=== PATIENT | male | born 1960 | race Caucasian/White ===

== ENCOUNTER 2017-02-19 09:13 | Emergency (ER) | payer OTHER ==
--- NOTE | 2017-02-19 09:33 | ER Document Report ---
ED Medical Screen (RME) - General Chief Complaint: Shortness Of Breath Stated Complaint: DIFFICULTY BREATHING Time Seen by Provider: 02/19/17 09:30 Mode of Arrival: Ambulatory Information source: Patient TRAVEL OUTSIDE OF THE [place] IN LAST 30 DAYS: No - HPI Patient complains to provider of: CP Onset: Other - Pt seen at several days ago -- dx of pneumonia -- started on ABX bugt returned to earlier this am with chest tightness -- given ASA and sent here for further eval. - Related Data Allergies/Adverse Reactions: povidone-iodine [From Betadine] Allergy (Severe, Verified 02/19/17 09:28) Generalized rash Soap [From Betadine] Allergy (Severe, Verified 02/19/17 09:28) Generalized rash Past Medical History - Past Medical History Cardiac Medical History: Reports: Hx Hypertension Denies: Hx Coronary Artery Disease, Hx Heart Attack Pulmonary Medical History: Reports: Hx Asthma - no episodes in "quite awhile" Denies: Hx Bronchitis, Hx COPD, Hx Pneumonia Neurological Medical History: Denies: Hx Cerebrovascular Accident, Hx Seizures Renal/ Medical History: Denies: Hx Peritoneal Dialysis Musculoskeltal Medical History: Reports Hx Arthritis - hands - Immunizations Immunizations up to date: Yes Hx Diphtheria, Pertussis, Tetanus Vaccination: Yes
[2017-02-19 10:01] LABS: ABSOLUTE BASOPHILS # (AUTO) 0.1 10^3/uL (0.0-0.2); ABSOLUTE EOSINOPHILS # (AUTO) 0.2 10^3/uL (0.0-0.6); ABSOLUTE LYMPHOCYTES (AUTO) 2.2 10^3/uL (0.5-4.7); ABSOLUTE MONOCYTES (AUTO) 0.5 10^3/uL (0.1-1.4); ABSOLUTE NEUT (AUTO) 4.6 10^3/uL (1.7-8.2); BASOPHILS % (AUTO) 0.9 % (0-2); EOSINOPHILS % (AUTO) 2.2 % (0-6); HEMOGLOBIN 12.2 g/dL (13.5-17.0); HGB HCT DIFFERENCE 0.6; LYMPHOCYTES % (AUTO) 29.2 % (13-45); MEAN CORPUSCULAR HEMOGLOBIN 31.8 pg (27.0-33.4); MEAN CORPUSCULAR HGB CONC 33.8 g/dL (32.0-36.0); MEAN CORPUSCULAR VOLUME 94 fl (80-97); MONOCYTES % (AUTO) 6.6 % (3-13); RED BLOOD COUNT 3.83 10^6/uL (4.35-5.55); RED CELL DISTRIBUTION WIDTH 14.3 % (11.5-14.0); SEGMENTED NEUTROPHILS % (AUTO) 61.1 % (42-78); WHITE BLOOD COUNT 7.5 10^3/uL (4.0-10.5)
--- NOTE | 2017-02-19 10:19 | RADIOLOGY REPORT (SQ) ---
EXAM DESCRIPTION: CHEST PA/LAT COMPLETED DATE/TIME: 02/19/2017 10:10 am REASON FOR STUDY: CP COMPARISON: 05/23/2015 EXAM PARAMETERS: NUMBER OF VIEWS: two views TECHNIQUE: Digital Frontal and Lateral radiographic views of the chest acquired. RADIATION DOSE: NA LIMITATIONS: none FINDINGS: LUNGS AND PLEURA: No opacities, masses or pneumothorax. No pleural effusion. MEDIASTINUM AND HILAR STRUCTURES: No masses or contour abnormalities. HEART AND VASCULAR STRUCTURES: Heart normal size. No evidence for failure. BONES: No acute findings. HARDWARE: None in the chest. OTHER: No other significant finding. IMPRESSION: NO SIGNIFICANT RADIOGRAPHIC FINDING IN THE CHEST. TECHNICAL DOCUMENTATION: JOB ID: [id number] [employer]- All Rights Reserved
[2017-02-19 10:20] LABS: ALANINE AMINOTRANSFERASE 39 U/L (21-72); ALBUMIN 3.9 g/dL (3.5-5.0); ALKALINE PHOSPHATASE 34 U/L (38-126); ANION GAP 13 (5-19); ASPARTATE AMINO TRANSFERASE 36 U/L (17-59); BILIRUBIN,DIRECT 0.4 mg/dL (0.0-0.4); BILIRUBIN,TOTAL 0.5 mg/dL (0.2-1.3); BLOOD UREA NITROGEN 54 mg/dL (7-20); CALCIUM 9.6 mg/dL (8.4-10.2); CARBON DIOXIDE 30 mmol/L (22-30); CHLORIDE 102 mmol/L (98-107); CREATINE KINASE 361 U/L (55-170); CREATININE RESULT 2.99 mg/dL (0.52-1.25); GLUCOSE 169 mg/dL (75-110); POTASSIUM 4.5 mmol/L (3.6-5.0); SODIUM 144.8 mmol/L (137-145); TOTAL PROTEIN 6.2 g/dL (6.3-8.2)
[2017-02-19] MEDS ORDERED: IPRATROPIUM/ALBUTEROL 0.5-2.5 MG/3 ML AMPUL NEB ONE (10:22)
[2017-02-19] MEDS ORDERED: ALBUTEROL SULFATE 0.083% NEB 2.5 MG/3 ML AMPUL NEB ONE ×3 (10:22→11:42)
--- NOTE | 2017-02-19 10:24 | ER Document Report ---
ED Respiratory Problem - General Chief Complaint: Shortness Of Breath Stated Complaint: DIFFICULTY BREATHING Time Seen by Provider: 02/19/17 09:30 Mode of Arrival: Ambulatory Information source: Patient TRAVEL OUTSIDE OF THE [place] IN LAST 30 DAYS: No - HPI Patient complains to provider of: Cough, Short of breath Onset: Last week Duration: Worse/persistent Short of Breath: Moderate Chest pain/discomfort: Tightness Cough: Productive Sputum amount: Small Sputum color: Yellow Sputum consistency: Mucoid At home treatment: Bronchodilators, Oral steroids Associated symptoms: Congestion, Cough, Difficulty breathing, Short of breath, Wheezing Similar symptoms previously: Yes Recently seen / treated by doctor: Yes Notes: Patient is a 56-year-old male presenting to the emergency room today complaining of productive cough with difficulty breathing and chest tightness is been going on since of last week, he was seen at urgent care on Wednesday of this week and diagnosed with pneumonia after having a chest x-ray done , was placed on a Z-Rui and prednisone, he also uses a nebulizer at home and albuterol inhaler as needed, he reports not feeling any better, with dizziness today as well, he denies a fever, no sick contacts, patient does not smoke - Related Data Allergies/Adverse Reactions: povidone-iodine [From Betadine] Allergy (Severe, Verified 02/19/17 09:28) Generalized rash Soap [From Betadine] Allergy (Severe, Verified 02/19/17 09:28) Generalized rash Past Medical History - General Information source: Patient - Social History Smoking Status: Never Smoker Chew tobacco use (# tins/day): No Frequency of alcohol use: Occasional Drug Abuse: None Family History: Reviewed & Not Pertinent - Past Medical History Cardiac Medical History: Reports: Hx Hypercholesterolemia, Hx Hypertension Denies: Hx Coronary Artery Disease, Hx Heart Attack Pulmonary Medical History: Reports: Hx Asthma - no episodes in "quite awhile", Hx COPD Denies: Hx Bronchitis, Hx Pneumonia Neurological Medical History: Denies: Hx Cerebrovascular Accident, Hx Seizures Endocrine Medical History: Reports: Hx Diabetes Mellitus Type 2 Renal/ Medical History: Denies: Hx Peritoneal Dialysis. 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 - Immunizations Immunizations up to date: Yes Hx Diphtheria, Pertussis, Tetanus Vaccination: Yes Review of Systems - Review of Systems Constitutional: No symptoms reported EENT: No symptoms reported Cardiovascular: Dizziness Respiratory: See HPI Gastrointestinal: No symptoms reported Genitourinary: No symptoms reported Male Genitourinary: No symptoms reported Musculoskeletal: No symptoms reported Skin: No symptoms reported Hematologic/Lymphatic: No symptoms reported Neurological/Psychological: No symptoms reported -: Yes All other systems reviewed and negative Physical Exam - Vital signs Interpretation: Normal - General General appearance: Appears well, Alert - HEENT Head: Normocephalic, Atraumatic Eyes: Normal Pupils: PERRL - Respiratory Respiratory status: No respiratory distress Chest status: Nontender Breath sounds: Nonproductive cough, Wheezing Chest palpation: Normal - Cardiovascular Rhythm: Regular Heart sounds: Normal auscultation Murmur: No - Abdominal Inspection: Normal Distension: No distension Bowel sounds: Normal Tenderness: Nontender Organomegaly: No organomegaly - Back Back: Normal, Nontender - Extremities General upper extremity: Normal inspection, Nontender, Normal color, Normal ROM , Normal temperature General lower extremity: Normal inspection, Nontender, Normal color, Normal ROM , Normal temperature, Normal weight bearing. No: Katelyn's sign - Neurological Neuro grossly intact: Yes Cognition: Normal Orientation: AAOx4 Iggy Coma Scale Eye Opening: Spontaneous Igyg Coma Scale Verbal: Oriented [place] Coma Scale Motor: Obeys Commands [place] Coma Scale Total: 15 Speech: Normal Motor strength normal: LUE, RUE, LLE, RLE Sensory: Normal - Psychological Associated symptoms: Normal affect, Normal mood - Skin Skin Temperature: Warm Skin Moisture: Dry Skin Color: Normal Course - Re-evaluation Re-evalutation: 02/19/17 13:12 Patient resting comfortably on stretcher, reports feeling much better after breathing treatments and IV fluids, he was able to ambulate in the department without additional dizziness, lungs are now clear to auscultation, symptoms are consistent with likely bronchitis and slight dehydration causing increased renal insufficiency, patient was advised to continue using his albuterol treatments at home every 4 hours, continue medications as previously prescribed , drink plenty of fluids, follow-up with his primary care provider in 1-2 days or return if symptoms worsen, patient acknowledges understanding and agreement with this plan - Laboratory Result Diagrams: 02/19/17 09:44 02/19/17 09:44 Laboratory results interpreted by me: 02/19/17 02/19/17 02/19/17 09:44 09:44 09:44 RBC 3.83 L Hgb 12.2 L Hct 36.0 L RDW 14.3 H BUN 54 H Creatinine 2.99 H Est GFR ( Amer) 26 L Est GFR (Non-Af Amer) 22 L Glucose 169 H Alkaline Phosphatase 34 L Creatine Kinase 361 H CK-MB (CK-2) 6.36 H Total Protein 6.2 L - Diagnostic Test Radiology reviewed: Image reviewed, Reports reviewed - EKG Interpretation by Me EKG shows normal: Sinus rhythm Rate: Normal Romulus/QRS: IVCD When compared to previous EKG there are: No significant change Discharge - Discharge Clinical Impression: Acute on chronic renal insufficiency, Dizziness Acute bronchitis Qualifiers: Bronchitis organism: unspecified organism Qualified Code(s): J20.9 - Acute bronchitis, unspecified Condition: Stable Disposition: HOME, SELF-CARE Instructions: Dizziness ([facility]), Kidney Failure ([facility]), Bronchitis ([facility]), Bronchitis With Bronchospasm (Wheezing) ([facility]) Additional Instructions: Follow up with your primary care provider in one to 2 days. Return to the emergency room immediately if symptoms worsen or any additional concerns. Forms: Return to Work
[2017-02-19 10:32] LABS: CREATINE KINASE MB 6.36 ng/mL (<4.55)
[2017-02-19 10:33] LABS: TROPONIN I < 0.012 ng/mL
[2017-02-19] MEDS: NORMAL SALINE 1000 ML 1,000 ML IV PRN ×2 (11:02→11:54)
[2017-02-19] MEDS ORDERED: NORMAL SALINE 1000 ML 1,000 ML IV PRN (11:42)
--- NOTE | 2017-02-19 13:19 | EKG REPORT ---
SEVERITY:- ABNORMAL ECG - SINUS RHYTHM NONSPECIFIC IVCD WITH LAD LEFT VENTRICULAR HYPERTROPHY SUSPECT OLD INFERIOR CT : Confirmed by: Cj Busch MD 19-Feb-2017 13:18:32
[2017-02-19 13:25] VITALS: BP 148/78
== END 2017-02-19 13:27 | disposition home or self-care (01) ==
LOC: ER 09:13
DX: J44.0 Chronic obstructive pulmonary disease with (acute) lower respiratory infection (principal); J20.9 Acute bronchitis, unspecified; J18.9 Pneumonia, unspecified organism; I12.9 Hypertensive chronic kidney disease with stage 1 through stage 4 chronic kidney disease, or unspecified chronic kidney disease; E11.22 Type 2 diabetes mellitus with diabetic chronic kidney disease; N18.9 Chronic kidney disease, unspecified; R42 Dizziness and giddiness; Z88.3 Allergy status to other anti-infective agents; Z90.5 Acquired absence of kidney
CPT/HCPCS: 93005; 94640 ×2; 99285; 96360; 96361; 36415; 82553; 82550; 85025; 80053; 84484; 71020; 93010; J7030; J7620

== ENCOUNTER 2017-05-25 05:19 | Emergency (ER) | payer OTHER ==
--- NOTE | 2017-05-25 05:51 | ER Document Report ---
ED Medical Screen (RME) - General Chief Complaint: High Blood Pressure Stated Complaint: BLOOD PRESSURE PROBLEMS TRAVEL OUTSIDE OF THE [place] IN LAST 30 DAYS: No - HPI Notes: 05/25/17 05:51 Patient is a 56-year-old male with a history of hypertension, diabetes, CKD ( not on dialysis) who presents the ED complaining of generalized abdominal pain and cramping along with loose stool/diarrhea 1 week. Patient states that he also has associated nausea without any vomiting. Patient states that he is having approximately 5-8 BM's every day. Patient also states that he has been struggling with elevated blood pressure and was 220 systolic while at his [employer] yesterday afternoon. Patient states that he has had a decreased p.o. intake because of his abdominal symptoms. Patient states that he is still urinating normally. He denies any recent antibiotic use or travel. Patient reports having a headache over the last day as well. Denies any fever, neck pain, changes in vision/speech/mentation/hearing, URI, sore throat, chest pain, palpitations, syncope, cough, shortness of breath, wheeze, dyspnea, urinary retention, dysuria, hematuria, back pain, loss of control of bowel or bladder, numbness/tingling, or rash. I have treated and performed a rapid initial assessment of this patient. A comprehensive ED assessment and evaluation of the patient, analysis of test results and completion of medical decision making process will be conducted by additional ED providers. - Related Data Allergies/Adverse Reactions: povidone-iodine [From Betadine] Allergy (Severe, Verified 05/25/17 05:20) Generalized rash Soap [From Betadine] Allergy (Severe, Verified 05/25/17 05:20) Generalized rash Past Medical History - Social History Family history: Reviewed & Not Pertinent - Past Medical History Cardiac Medical History: Reports: Hx Hypercholesterolemia, Hx Hypertension Denies: Hx Coronary Artery Disease, Hx Heart Attack Pulmonary Medical History: Reports: Hx Asthma - no episodes in "quite awhile", Hx COPD Denies: Hx Bronchitis, Hx Pneumonia Neurological Medical History: Denies: Hx Cerebrovascular Accident, Hx Seizures Endocrine Medical History: Reports: Hx Diabetes Mellitus Type 2 Renal/ Medical History: Denies: Hx Peritoneal Dialysis. 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 - Immunizations Immunizations up to date: Yes Hx Diphtheria, Pertussis, Tetanus Vaccination: Yes Physical Exam - Vital signs Vitals: Temp Pulse Resp BP Pulse Ox 97.9 F 65 18 162/80 H 95 05/25/17 05:21 05/25/17 05:21 05/25/17 05:21 05/25/17 05:05/25/17 05:21 - Respiratory Respiratory status: No respiratory distress Breath sounds: Normal - Cardiovascular Rhythm: Regular Heart sounds: Normal auscultation - Abdominal Bowel sounds: Normal Tenderness: Tender - generalized mild tenderness Course - Vital Signs Vital signs: Temp Pulse Resp BP Pulse Ox 97.9 F 65 18 162/80 H 95 05/25/17 05:21 05/25/17 05:21 05/25/17 05:21 05/25/17 05:21 05/25/17 05:21
[2017-05-25] MEDS ORDERED: ONDANSETRON HCL INJ/PF 4 MG/2 ML SDV IV ONE (05:56)
[2017-05-25] MEDS ORDERED: NORMAL SALINE 1000 ML 1,000 ML IV ONE (05:57)
[2017-05-25 06:27] LABS: ABSOLUTE BASOPHILS # (AUTO) 0.1 10^3/uL (0.0-0.2); ABSOLUTE EOSINOPHILS # (AUTO) 0.2 10^3/uL (0.0-0.6); ABSOLUTE LYMPHOCYTES (AUTO) 1.5 10^3/uL (0.5-4.7); ABSOLUTE MONOCYTES (AUTO) 0.5 10^3/uL (0.1-1.4); ABSOLUTE NEUT (AUTO) 4.5 10^3/uL (1.7-8.2); BASOPHILS % (AUTO) 0.9 % (0-2); EOSINOPHILS % (AUTO) 3.3 % (0-6); HEMATOCRIT 32.7 % (37.9-51.0); HGB HCT DIFFERENCE 0.3; LYMPHOCYTES % (AUTO) 22.1 % (13-45); MEAN CORPUSCULAR HEMOGLOBIN 30.9 pg (27.0-33.4); MEAN CORPUSCULAR HGB CONC 33.6 g/dL (32.0-36.0); MEAN CORPUSCULAR VOLUME 92 fl (80-97); MONOCYTES % (AUTO) 7.7 % (3-13); RED BLOOD COUNT 3.56 10^6/uL (4.35-5.55); RED CELL DISTRIBUTION WIDTH 14.6 % (11.5-14.0); WHITE BLOOD COUNT 6.8 10^3/uL (4.0-10.5)
--- NOTE | 2017-05-25 06:47 | ER Document Report ---
ED General - General Mode of Arrival: Ambulatory Information source: Patient TRAVEL OUTSIDE OF THE [place] IN LAST 30 DAYS: No <TORREY RAHMAN - Last Filed: 05/25/17 15:37> <PAT GONZALEZ - Last Filed: 05/26/17 15:21> - General Chief Complaint: High Blood Pressure Stated Complaint: BLOOD PRESSURE PROBLEMS Time Seen by Provider: 05/25/17 06:25 Notes: Patient is a 56 year old male that presents to the emergency department today with complaints of elevated blood pressures for one week with associated diarrhea. Patient states he has vomited once or twice the past week. Patient states that he developed a headache a few days ago. Patient states he has been having trouble controlling his blood pressures the last few days as well, he last took his BP meds at 0300 this morning. Patient denies a history of diverticulitis, fevers, recent travel, sick contacts, new medications, or recent antibiotic usage. (TORREY RAHMAN) - Related Data Allergies/Adverse Reactions: povidone-iodine [From Betadine] Allergy (Severe, Verified 05/25/17 05:20) Generalized rash Soap [From Betadine] Allergy (Severe, Verified 05/25/17 05:20) Generalized rash Past Medical History - General Information source: Patient - Social History Smoking Status: Never Smoker Cigarette use (# per day): No Chew tobacco use (# tins/day): No Frequency of alcohol use: None Drug Abuse: None Lives with: Family Family History: Reviewed & Not Pertinent Patient has suicidal ideation: No Patient has homicidal ideation: No - Past Medical History Cardiac Medical History: Reports: Hx Hypercholesterolemia, Hx Hypertension Pulmonary Medical History: Reports: Hx Asthma - no episodes in "quite awhile", Hx COPD Endocrine Medical History: Reports: Hx Diabetes Mellitus Type 2 Renal/ Medical History: Reports: Hx Kidney Stones - kidney disease GI Medical History: Reports: Hx Gastroesophageal Reflux Disease Musculoskeltal Medical History: Reports Hx Arthritis - hands Past Surgical History: Reports: Hx Kidney (Renal Surgery) - 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 - Immunizations Immunizations up to date: Yes Hx Diphtheria, Pertussis, Tetanus Vaccination: Yes <TORREY RAHMAN - Last Filed: 05/25/17 15:37> Review of Systems - Review of Systems Constitutional: denies: Fever EENT: No symptoms reported Cardiovascular: See HPI, Other - elevated blood pressures Respiratory: No symptoms reported Gastrointestinal: See HPI, Diarrhea, Vomiting Genitourinary: No symptoms reported Male Genitourinary: No symptoms reported Musculoskeletal: No symptoms reported Skin: No symptoms reported Hematologic/Lymphatic: No symptoms reported Neurological/Psychological: See HPI, Headaches -: Yes All other systems reviewed and negative <TORREY RAHMAN - Last Filed: 05/25/17 15:37> Physical Exam <TORREY RAHMAN - Last Filed: 05/25/17 15:37> <PAT GONZALEZ - Last Filed: 05/26/17 15:21> - Vital signs Vitals: Temp Pulse Resp BP Pulse Ox 97.9 F 65 18 162/80 H 95 05/25/17 05:21 05/25/17 05:21 05/25/17 05:21 05/25/17 05:21 05/25/17 05:21 - Notes Notes: Physical Exam: General: Alert, appears uncomfortable. HEENT: Normocephalic. Atraumatic. PERRL. Extraocular movements intact. Oropharynx clear. Dry mucous membranes. Neck: Supple. Non-tender. Respiratory: No respiratory distress. Clear and equal breath sounds bilaterally. Cardiovascular: Regular rate and rhythm. Abdominal: LLQ tenderness with palpation, no guarding or rebound. No distension. Normal Bowel Sounds. Back: Non-tender. No deformity or step off. Extremities: Moves all four extremities. Upper extremities: Normal inspection. Normal ROM. Lower extremities: Normal inspection. No edema. Normal ROM. Neurological: Normal cognition. AAOx4. Normal speech. Psychological: Normal affect. Normal Mood. Skin: Warm. Dry. Normal color. (TORREY RAHMAN) Course - Laboratory Result Diagrams: 05/25/17 06:10 05/25/17 06:10 <TORREY RAHMAN - Last Filed: 05/25/17 15:37> - Laboratory Result Diagrams: 05/25/17 06:10 05/25/17 06:10 - Diagnostic Test Radiology reviewed: Reports reviewed <PAT GONZALEZ - Last Filed: 05/26/17 15:21> - Re-evaluation Re-evalutation: Patient is a 56-year-old male who comes in complaining of diarrhea, abdominal pain lower and headache. Patient was given Zofran Compazine and Benadryl and his headache is resolved. Patient does not have any further abdominal pain and he is eating a full meal in the room. No further diarrhea. Blood work and urine within normal limits. Patient has a history of a left nephrectomy, unfortunately, although CT did not show any acute findings, patient does have what appears to be a neoplasm on his right kidney. Patient does not have any diagnosis of this. Patient was discussed with his schedule planning manager, Dr. Gutierrez. Patient was also discussed with Dr. Strauss from [facility] urology, Dr. Wilson from the [facility] oncology [place]. Patient has had appointment scheduled with these providers due to his new finding and also that he only has one kidney. This is been discussed at length with the patient who understands and agrees with plan as outpatient. present for discussion. Stable for discharge. Return if any worsening or concerning findings. (PAT GONZALEZ) - Vital Signs Vital signs: Temp Pulse Resp BP Pulse Ox 97.9 F 65 18 177/73 H 95 05/25/17 13:37 05/25/17 05:21 05/25/17 13:36 05/25/17 13:37 05/25/17 13:37 - Laboratory Laboratory results interpreted by me: 05/25/17 05/25/17 05/25/17 06:10 06:10 08:35 RBC 3.56 L Hgb 11.0 L Hct 32.7 L RDW 14.6 H Chloride 111 H BUN 26 H Creatinine 2.85 H Est GFR ( Amer) 28 L Est GFR (Non-Af Amer) 23 L Total Protein 5.2 L Albumin 3.1 L Urine Protein >=500 H Urine Glucose (UA) 50 H Discharge <TORREY RAHMAN - Last Filed: 05/25/17 15:37> <PAT GONZALEZ - Last Filed: 05/26/17 15:21> - Discharge Clinical Impression: Kidney neoplasm, Diarrhea, Headache Condition: Stable Disposition: HOME, SELF-CARE Instructions: Diarrhea, Nonspecific ([facility]), Growth or Mass, Pending Workup ([facility]) , Headache ([facility]) Additional Instructions: Please take a copy of your blood work and CAT scan with you. Please call to confirm the appointments. Referrals: SHAGUFTA MIJARES, INTERNAL CONTROL SPECIALIST-C [Primary Care Provider] - Follow up in 3-5 days EDWARD GUTIERREZ MD [ACTIVE STAFF] - Follow up in 1 week MAXIM SCRUGGS MD [ACTIVE STAFF] - 06/02/17 10:15 am PRINCE FINLEY MD [NO LOCAL MD] - 05/31/17 3:20 pm Scribe Attestation: 05/26/17 15:21 I personally performed the services described in the documentation, reviewed and edited the documentation which was dictated to the scribe in my presence, and it accurately records my words and actions. (PAT GONZALEZ) Scribe Documentation - Scribe Written by Lidia:: Lidia Pelaez, 05/25/2017 0718 acting as scribe for :: Milo <TORREY RAHMAN - Last Filed: 05/25/17 15:37>
[2017-05-25 06:58] LABS: ALANINE AMINOTRANSFERASE 34 U/L (21-72); ALBUMIN 3.1 g/dL (3.5-5.0); ALKALINE PHOSPHATASE 44 U/L (38-126); ANION GAP 11 (5-19); ASPARTATE AMINO TRANSFERASE 23 U/L (17-59); BILIRUBIN,DIRECT 0.4 mg/dL (0.0-0.4); BILIRUBIN,TOTAL 0.7 mg/dL (0.2-1.3); BLOOD UREA NITROGEN 26 mg/dL (7-20); CALCIUM 8.4 mg/dL (8.4-10.2); CARBON DIOXIDE 23 mmol/L (22-30); CHLORIDE 111 mmol/L (98-107); CREATININE RESULT 2.85 mg/dL (0.52-1.25); GLUCOSE 102 mg/dL (75-110); LIPASE 78.7 U/L (23-300); POTASSIUM 3.8 mmol/L (3.6-5.0); SODIUM 144.5 mmol/L (137-145); TOTAL PROTEIN 5.2 g/dL (6.3-8.2)
[2017-05-25] MEDS ORDERED: DIPHENHYDRAMINE HCL 50 MG/ML VIAL IV ONE (08:01)
[2017-05-25] MEDS ORDERED: PROCHLORPERAZINE EDISYLATE INJ 10 MG/2 ML VIAL IV ONE (08:01)
--- NOTE | 2017-05-25 08:33 | RADIOLOGY REPORT (SQ) ---
EXAM DESCRIPTION: CT ABD/PELVIS NO ORAL OR IV COMPLETED DATE/TIME: 05/25/2017 7:40 am REASON FOR STUDY: LLQ pain, diarrhea, nausea COMPARISON: Renal ultrasound 11/04/2006 TECHNIQUE: CT scan of the abdomen and pelvis performed without intravenous or oral contrast. Images reviewed with lung, soft tissue, and bone windows. Reconstructed coronal and sagittal MPR images revi ewed. All images stored on PACS. All CT scanners at this facility use dose modulation, iterative reconstruction, and/or weight based d osing when appropriate to reduce radiation dose to as low as reasonably achievable (ALARA). [facility]: Dose Right [facility]: CareDose [facility]: Dose Right [facility]: Teradose 4D [facility]: Newforma RADIATION DOSE: CT Rad equipment meets quality standard of care and radiation dose reduction techniq ues were employed. CTDIvol: 20.9 mGy. DLP: 1285 mGy-cm.mGy. LIMITATIONS: No oral or IV contrast FINDINGS: LOWER CHEST: No significant findings. No nodules or infiltrates. NON-CONTRASTED LIVER, SPLEEN, ADRENALS: Evaluation limited by lack of IV contrast. No identified sign ificant masses. PANCREAS: No masses. No peripancreatic inflammatory changes. GALLBLADDER: No identified stones by CT criteria. No inflammatory changes to suggest cholecystitis. RIGHT KIDNEY AND URETER: A 2.5 cm soft tissue density mass is present in the right lower pole kidney, best shown on coronal image 31 and axial image 58. This requires further investigation with additio nal cross-sectional imaging, either CT abdomen and pelvis with IV contrast or MRI kidneys with contra st. No significant calcifications. No hydronephrosis or hydroureter. LEFT KIDNEY AND URETER: Post left nephrectomy. AORTA AND RETROPERITONEUM: No aneurysm. No retroperitoneal masses or adenopathy. BOWEL AND PERITONEAL CAVITY: No obvious masses or inflammatory changes. No free fluid. APPENDIX: Not identified PELVIS, BLADDER, AND ABDOMINAL WALL:No abnormal masses. No free fluid. Bladder normal. Fat containin g left inguinal hernia BONES: Degenerative disc disease and facet arthropathy, lower lumbar spine OTHER: No other significant finding. IMPRESSION: No CT findings to explain history of left lower quadrant pain, nausea, and diarrhea 2.5 cm solid nodule right lower pole kidney worrisome for neoplasm. Further evaluation with contrast enhanced cross-sectional imaging recommended. Patient is post left nephrectomy. COMMENT: This report was discussed with Dr. Wodowski Quality ID # [id number]: Final reports with documentation of one or more dose reduction techniques (e.g., Au tomated exposure control, adjustment of the mA and/or kV according to patient size, use of iterative reconstruction technique) TECHNICAL DOCUMENTATION: JOB ID: [id number] [employer]- All Rights Reserved
[2017-05-25 09:08] LABS: APPEARANCE,URINE CLOUDY; BILIRUBIN,URINE NEGATIVE (NEGATIVE); GLUCOSE, URINE 50 mg/dL (NEGATIVE); KETONES,URINE NEGATIVE (NEGATIVE); LEUKOCYTE ESTERASE,URINE NEGATIVE (NEGATIVE); NITRITE,URINE NEGATIVE (NEGATIVE); PROTEIN,URINE >=500 mg/dL (NEGATIVE); URINE SPECIFIC GRAVITY 1.026; UROBILINOGEN,URINE NEGATIVE mg/dL (<2.0)
[2017-05-25 13:39] VITALS: BP 177/73
== END 2017-05-25 13:40 | disposition home or self-care (01) ==
LOC: ER 05:19
DX: D49.511 Neoplasm of unspecified behavior of right kidney (principal); I10 Essential (primary) hypertension; R19.7 Diarrhea, unspecified; R11.2 Nausea with vomiting, unspecified; R51 Headache; R10.814 Left lower quadrant abdominal tenderness; J44.9 Chronic obstructive pulmonary disease, unspecified; R50.9 Fever, unspecified; Z90.5 Acquired absence of kidney; Z79.899 Other long term (current) drug therapy; Z87.19 Personal history of other diseases of the digestive system; Z88.3 Allergy status to other anti-infective agents
CPT/HCPCS: 99284; 96361; 96374; 96375; 36415; 83690; 85025; 80053; 81001; 74176; J1200; J0780; J2405; J7030

== ENCOUNTER 2017-06-03 13:22 | Emergency (ER) | payer OTHER ==
[2017-06-03] MEDS ORDERED: ONDANSETRON HCL INJ/PF 4 MG/2 ML SDV IV ONE ×2 (13:51→19:42)
[2017-06-03] MEDS ORDERED: MORPHINE SULFATE 10 MG/ML INJ IV ONE (13:51)
--- NOTE | 2017-06-03 13:51 | ER Document Report ---
ED Medical Screen (RME) - General Chief Complaint: Abdominal Pain >50 Stated Complaint: ABDOMINAL PAIN Time Seen by Provider: 06/03/17 13:44 Notes: Patient was sent from Dr. Morales's office. He has abdominal pain and history of a renal mass. Dr. Morales asked that an MRI be done. I did call and speak with MRI and they can do the test at approximately 4:30 PM today. They state no contrast can be given due to patient's creatinine. I called Dr. Morales and informed her of when the MRI can be done and that no contrast could be given and she stated that that was okay with her. TRAVEL OUTSIDE OF THE [place] IN LAST 30 DAYS: No - Related Data Allergies/Adverse Reactions: povidone-iodine [From Betadine] Allergy (Severe, Verified 06/03/17 13:23) Generalized rash Soap [From Betadine] Allergy (Severe, Verified 06/03/17 13:23) Generalized rash Past Medical History - Social History Frequency of alcohol use: None Drug Abuse: None Family history: Reviewed & Not Pertinent - Past Medical History Cardiac Medical History: Reports: Hx Hypercholesterolemia, Hx Hypertension Denies: Hx Coronary Artery Disease, Hx Heart Attack Pulmonary Medical History: Reports: Hx Asthma - no episodes in "quite awhile", Hx COPD Denies: Hx Bronchitis, Hx Pneumonia Neurological Medical History: Denies: Hx Cerebrovascular Accident, Hx Seizures Endocrine Medical History: Reports: Hx Diabetes Mellitus Type 2 Renal/ Medical History: Reports: Hx Kidney Stones - kidney disease. 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
[2017-06-03 14:31] LABS: ABSOLUTE EOSINOPHILS # (AUTO) 0.1 10^3/uL (0.0-0.6); ABSOLUTE LYMPHOCYTES (AUTO) 1.3 10^3/uL (0.5-4.7); ABSOLUTE MONOCYTES (AUTO) 0.4 10^3/uL (0.1-1.4); ABSOLUTE NEUT (AUTO) 4.7 10^3/uL (1.7-8.2); BASOPHILS % (AUTO) 0.6 % (0-2); EOSINOPHILS % (AUTO) 1.9 % (0-6); HEMOGLOBIN 12.5 g/dL (13.5-17.0); HGB HCT DIFFERENCE 0.5; LYMPHOCYTES % (AUTO) 20.2 % (13-45); MEAN CORPUSCULAR HGB CONC 33.9 g/dL (32.0-36.0); MEAN CORPUSCULAR VOLUME 92 fl (80-97); MONOCYTES % (AUTO) 5.6 % (3-13); RED BLOOD COUNT 4.04 10^6/uL (4.35-5.55); RED CELL DISTRIBUTION WIDTH 14.3 % (11.5-14.0); SEGMENTED NEUTROPHILS % (AUTO) 71.7 % (42-78); WHITE BLOOD COUNT 6.5 10^3/uL (4.0-10.5)
[2017-06-03 14:34] LABS: APPEARANCE,URINE SLIGHTLY-CLOUDY; BILIRUBIN,URINE NEGATIVE (NEGATIVE); GLUCOSE, URINE 50 mg/dL (NEGATIVE); KETONES,URINE NEGATIVE (NEGATIVE); LEUKOCYTE ESTERASE,URINE NEGATIVE (NEGATIVE); NITRITE,URINE NEGATIVE (NEGATIVE); PROTEIN,URINE >=500 mg/dL (NEGATIVE); URINE SPECIFIC GRAVITY 1.025; UROBILINOGEN,URINE NEGATIVE mg/dL (<2.0)
--- NOTE | 2017-06-03 14:40 | ER Document Report ---
ED GI/ - General Chief Complaint: Abdominal Pain >50 Stated Complaint: ABDOMINAL PAIN Time Seen by Provider: 06/03/17 13:44 Notes: The patient is a 56-year-old male, past medical history hypertension, Hx of left nephrectomy, presents with mild left lower quadrant abdominal pain and 2 episodes of watery diarrhea. Patient was in the ER 10 days ago and had a negative CT scan to explain his symptoms, but it did show a nodule in his right kidney. When he followed up with the oncologist, Dr. Morales, yesterday, he was sent to the ER for an MRI for further evaluation of his abdominal pain and renal mass. Patient says he takes four blood pressure medications and took them this morning. Patient denies fevers, recent travel, history of diverticulitis or diverticulosis, blood in stool, vomiting, chest pain, shortness of breath, urinary symptoms, headache, syncope, leg swelling or back pain. TRAVEL OUTSIDE OF THE [place] IN LAST 30 DAYS: No - Related Data Allergies/Adverse Reactions: povidone-iodine [From Betadine] Allergy (Severe, Verified 06/03/17 13:23) Generalized rash Soap [From Betadine] Allergy (Severe, Verified 06/03/17 13:23) Generalized rash Past Medical History - General Information source: Patient - Social History Smoking Status: Never Smoker Frequency of alcohol use: None Drug Abuse: None Family History: Reviewed & Not Pertinent Patient has suicidal ideation: No Patient has homicidal ideation: No - Past Medical History Cardiac Medical History: Reports: Hx Hypercholesterolemia, Hx Hypertension Denies: Hx Coronary Artery Disease, Hx Heart Attack Pulmonary Medical History: Reports: Hx Asthma - no episodes in "quite awhile", Hx COPD Denies: Hx Bronchitis, Hx Pneumonia Neurological Medical History: Denies: Hx Cerebrovascular Accident, Hx Seizures Endocrine Medical History: Reports: Hx Diabetes Mellitus Type 2 Renal/ Medical History: Reports: Hx Kidney Stones - kidney disease. 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 RESPIRATORY: -cough, -SOB GASTROINTESTINAL: +abdominal pain, +nausea, -vomiting, +diarrhea GENITOURINARY: -dysuria, -hematuria MUSCULOSKELETAL: -back pain, -neck pain SKIN: -rash or skin lesions. HEMATOLOGIC: -easy bruising or bleeding. LYMPHATIC: -swollen, enlarged glands. NEUROLOGICAL: -altered mental status or loss of consciousness, -headache, - neurologic symptoms PSYCHIATRIC: -anxiety, -depression. ALL OTHER SYSTEMS REVIEWED AND NEGATIVE. Physical Exam - Vital signs Vitals: Temp Pulse Resp BP Pulse Ox 97.7 F 55 L 18 177/65 H 96 06/03/17 13:31 06/03/17 13:31 06/03/17 13:31 06/03/17 13:31 06/03/17 13:31 - Notes Notes: PHYSICAL EXAMINATION: GENERAL: Well-appearing, well-nourished and in no acute distress. HEAD: Atraumatic, normocephalic. EYES: Pupils equal round and reactive to light, extraocular movements intact, sclera anicteric, conjunctiva are normal. ENT: nares patent, oropharynx clear without exudates. Moist mucous membranes. NECK: Normal range of motion, supple without lymphadenopathy LUNGS: Breath sounds clear to auscultation bilaterally and equal. No wheezes rales or rhonchi. HEART: Regular rate and rhythm without murmurs ABDOMEN: Soft, nontender, normoactive bowel sounds. No guarding, no rebound. No masses appreciated. EXTREMITIES: Normal range of motion, no pitting or edema. No cyanosis. NEUROLOGICAL: Cranial nerves grossly intact. Normal speech, normal gait. Normal sensory and motor exams. PSYCH: Normal mood, normal affect. SKIN: Warm, Dry, normal turgor, no rashes or lesions noted. Course - Re-evaluation Re-evalutation: 06/03/17 19:56 Spoke to patient's Oncologist (Dr. Castro) about findings of abdominal MRI. Due to the known renal mass, increasing headaches and mild confusion, there is a concern for brain mets. Requesting a brain MRI to assess for masses. MRI will be ready at 20:30. 06/03/17 21:[address] Castro about negative head MRI results for mass. Pt provided with his evening dose of clonidine. His primary care physician is actively working with him to adjust blood pressure medications. His headache has resolved. Instructed him to follow-up with his primary care physician and oncologist for further evaluation and treatment of his renal mass. - Vital Signs Vital signs: Temp Pulse Resp BP Pulse Ox 98.0 F 57 L 16 206/74 H 95 06/03/17 20:13 06/03/17 20:13 06/03/17 20:13 06/03/17 20:13 06/03/17 20:13 - Laboratory Result Diagrams: 06/03/17 14:05 06/03/17 14:05 Laboratory results interpreted by me: 06/03/17 06/03/17 06/03/17 14:05 14:05 14:12 RBC 4.04 L Hgb 12.5 L Hct 37.0 L RDW 14.3 H Chloride 108 H BUN 25 H Creatinine 2.53 H Est GFR ( Amer) 32 L Est GFR (Non-Af Amer) 26 L Glucose 111 H Total Protein 5.7 L Urine Protein >=500 H Urine Glucose (UA) 50 H - Diagnostic Test Radiology reviewed: Image reviewed, Reports reviewed Radiology results interpreted by me: MRI Abdomen: 2.5 cm inferior pole heterogeneous mass with increased T1 signal in the periphery and increased T2 signal centrally, no significant changes in the appearance on T1 in and out of phase images. This lesion remains suspicious and should be followed in a short interval for any changes in size or further evaluated with outpatient dynamic contrast cross-sectional imaging. Urology follow-up should also be considered. Discharge - Discharge Clinical Impression: Renal mass, right Hypertension Qualifiers: Hypertension type: unspecified Qualified Code(s): I10 - Essential (primary) hypertension Headache Qualifiers: Headache type: unspecified Headache chronicity pattern: unspecified pattern Intractability: not intractable Qualified Code(s): R51 - Headache Condition: Stable Disposition: HOME, SELF-CARE Additional Instructions: Follow-up with your primary care physician for further evaluation and adjustments of your blood pressure medications. Your MRI of your abdomen shows a concerning lesion of your right kidney. Your head MRI does not show any masses. Follow-up with your urologist and oncologist. HIGH BLOOD PRESSURE REQUIRING TREATMENT: Your blood pressure is high. This is called "hypertension." Your history and exam suggest that this is not a temporary problem. You need treatment of your blood pressure. If left untreated, high blood pressure greatly increases your risk of heart attack and stroke. Please don't ignore this problem. If you have blood pressure medicine but aren't using it regularly, start taking it again. Some simple things you can do to help are: Get some aerobic exercise for at least 20 minutes on a daily basis. (See your doctor before beginning any new exercise program.) Eat a low-fat diet. Lose excess weight. Avoid salty foods and avoid adding salt to any of the foods you eat. Avoid diet pills, decongestants, "energizing" herbs, and other medicines that elevate blood pressure. There are many different medicines that treat blood pressure. If your medication causes unpleasant side effects, call your doctor. There are others you can try. Treating hypertension is a life-long investment in your health. CLONIDINE (CATAPRES): Clonidine is blood-pressure medicine. It works in your brain, making the nervous system relax the blood vessels. This medicine can also be used for symptoms of narcotic withdrawal. Clonidine frequently causes dry mouth, drowsiness, and dizziness. These symptoms go away as you continue to use it. Rest for the first couple of days. Don't drive or use machinery until you're back to normal. Never stop clonidine suddenly! There can be a "rebound" severe increase in blood pressure, headache, and agitation. Be sure you always have enough of the medicine. Call the doctor if you have any new symptoms such as skin rash, weakness, severe lightheadedness, chest pain, headache, or depression. FOLLOW-UP CARE: If you have been referred to a physician for follow-up care, call the physician s office for an appointment as you were instructed or within the next two days. If you experience worsening or a significant change in your symptoms, notify the physician immediately or return to the Emergency Department at any time for re-evaluation. Forms: Elevated Blood Pressure Referrals: MAXIM CASTRO MD [ACTIVE STAFF] - Follow up as needed [facility] [Provider Group] - Follow up as needed
[2017-06-03 14:45] LABS: ALANINE AMINOTRANSFERASE 24 U/L (21-72); ALBUMIN 3.6 g/dL (3.5-5.0); ALKALINE PHOSPHATASE 47 U/L (38-126); ANION GAP 10 (5-19); ASPARTATE AMINO TRANSFERASE 19 U/L (17-59); BILIRUBIN,DIRECT 0.3 mg/dL (0.0-0.4); BILIRUBIN,TOTAL 0.7 mg/dL (0.2-1.3); BLOOD UREA NITROGEN 25 mg/dL (7-20); CALCIUM 9.5 mg/dL (8.4-10.2); CARBON DIOXIDE 27 mmol/L (22-30); CHLORIDE 108 mmol/L (98-107); CREATININE RESULT 2.53 mg/dL (0.52-1.25); GLUCOSE 111 mg/dL (75-110); POTASSIUM 4.2 mmol/L (3.6-5.0); SODIUM 144.5 mmol/L (137-145); TOTAL PROTEIN 5.7 g/dL (6.3-8.2)
--- NOTE | 2017-06-03 19:47 | RADIOLOGY REPORT (SQ) ---
EXAM DESCRIPTION: MRI ABDOMEN WITHOUT COMPLETED DATE/TIME: 06/03/2017 6:21 pm REASON FOR STUDY: abd pain/renal mass COMPARISON: None. TECHNIQUE: Multiplanar multisequence imaging performed without contrast including sagittal, axial an d coronal T2, axial T1, axial gradient fat sat T1, axial, sagittal and coronal fat sat T1 post contra st. CONTRAST TYPE AND DOSE: None administered RENAL FUNCTION: None required LIMITATIONS: None. FINDINGS: LIVER: Normal size. No masses. No dilated ducts. CBD normal. SPLEEN: Normal size. No focal lesions. PANCREAS: No masses. No adjacent inflammation or peripancreatic fluid collections. Pancreatic duct no t dilated. GALLBLADDER: No masses. No stones. No gallbladder wall thickening or pericholecystic fluid. ADRENAL GLANDS: No significant masses or asymmetry. RIGHT KIDNEY AND URETER: 2.5 cm inferior pole heterogeneous mass with increased T1 signal in the jonathan phery and increased T2 signal centrally, no significant changes in the appearance on T1 in and out of phase images. No hydronephrosis. LEFT KIDNEY AND URETER: Surgically absent. AORTA AND VESSELS: No aneurysm. No dissection. Renal arteries, SMA, celiac without stenosis. RETROPERITONEUM: No retroperitoneal adenopathy, hemorrhage or masses. BOWEL: No visualized masses. No inflammation. No significant dilatation. ABDOMINAL WALL AND PERITONEUM: No hernias. No free fluid. BONES: No acute findings. OTHER: No other significant finding. IMPRESSION: 2.5 cm inferior pole heterogeneous mass with increased T1 signal in the periphery and in creased T2 signal centrally, no significant changes in the appearance on T1 in and out of phase image s. This lesion remains suspicious and should be followed in a short interval for any changes in size or further evaluated with outpatient dynamic contrast cross-sectional imaging. Urology follow-up sh ould also be considered. TECHNICAL DOCUMENTATION: JOB ID: [id number] [place]-72 2010 [employer]- All Rights Reserved
--- NOTE | 2017-06-03 21:49 | RADIOLOGY REPORT (SQ) ---
EXAM DESCRIPTION: MRI HEAD WITHOUT COMPLETED DATE/TIME: 06/03/2017 9:33 pm REASON FOR STUDY: Hx of renal mass, increasing headache and confusio COMPARISON: 05/20/[address] TECHNIQUE: Multiplanar imaging includes non-contrasted T1, T2, FLAIR, and Diffusion with ADC map seq uences. Images stored on PACS. LIMITATIONS: None. FINDINGS: ANATOMY: No anomalies. Normal vascular flow voids. Pituitary fossa normal. CSF SPACES: Normal in size and contour. No hemorrhage. CEREBRUM: A few high-signal intensity lesions scattered throughout the white matter on FLAIR imaging with distribution suggesting chronic micro-vascular ischemic change. Sulci and gyri normal in size a nd contour. No evidence of hemorrhage, mass or extraaxial fluid collection. POSTERIOR FOSSA: No signal alteration. No hemorrhage. No edema, masses or mass effect. Internal glen tory canals, cerebello-pontine angles, mastoids normal. DIFFUSION: Negative for acute or sub-acute infarction. ORBITS: No masses. Globes normal. PARANASAL SINUSES: No fluid levels. Minimal maxillary mucosal thickening. OTHER: No other significant finding. IMPRESSION: Negative for acute or sub-acute infarction. Minimal microvascular ischemic changes. EVIDENCE OF ACUTE STROKE: NO. TECHNICAL DOCUMENTATION: JOB ID: [id number] [place]-72 2010 [employer]- All Rights Reserved
[2017-06-03] MEDS ORDERED: CLONIDINE HCL 0.1 MG TABLET PO ONE (21:53)
[2017-06-03 22:58] VITALS: BP 200/80
== END 2017-06-03 22:15 | disposition home or self-care (01) ==
LOC: ER 13:22
DX: N28.89 Other specified disorders of kidney and ureter (principal); I10 Essential (primary) hypertension; R10.32 Left lower quadrant pain; R19.7 Diarrhea, unspecified; R41.0 Disorientation, unspecified; R51 Headache; R11.0 Nausea; J44.9 Chronic obstructive pulmonary disease, unspecified; Z90.5 Acquired absence of kidney; Z79.899 Other long term (current) drug therapy; Z88.3 Allergy status to other anti-infective agents
CPT/HCPCS: 96376; 99284; 96374; 96375; 36415; 85025; 80053; 81001; 70551; 74181; J2270; J2405

== ENCOUNTER 2017-07-30 23:10 | Inpatient (IN) | payer OTHER ==
[2017-07-31] MEDS ORDERED: CLONIDINE 0.2 MG/24 HR PATCH.TDWK TD ONE (00:50)
[2017-07-31] MEDS ORDERED: HYDRALAZINE HCL 25 MG TABLET PO ONE (00:50)
[2017-07-31] MEDS ORDERED: PROCHLORPERAZINE EDISYLATE INJ 10 MG/2 ML VIAL IV ONE (01:01)
[2017-07-31] MEDS ORDERED: HYDRALAZINE HCL INJ/PF 20 MG/1 ML SDV IV ONE (01:01)
--- NOTE | 2017-07-31 01:05 | ER Document Report ---
ED General - General Chief Complaint: High Blood Pressure Stated Complaint: HIGH BLOOD PRESSURE/HEADACHE Time Seen by Provider: 07/31/17 00:48 Notes: Patient is a 57-year-old male with a past medical history of severe, refractory hypertension, morbid obesity, diabetes, and hyperlipidemia who presents with 24 hours of progressively worsening headache with associated vomiting. Patient states that his headaches are this morning and gradually worsened throughout the day. He notes it is a severe, constant, throbbing bitemporal pain. Nothing improves or worsens his pain. He notes associated nonbilious vomiting. He notes a history of similar symptoms in the past with severe hypertension but states that usually his blood pressure response was home medications and has not done so today. He does deny any medication noncompliance. He is unable to tell me what medications he takes. He has not seen his primary care doctor regarding today's concerns. He denies any associated weakness, numbness , or altered mental status. TRAVEL OUTSIDE OF THE [place] IN LAST 30 DAYS: No - Related Data Allergies/Adverse Reactions: povidone-iodine [From Betadine] Allergy (Severe, Verified 06/03/17 13:23) Generalized rash Soap [From Betadine] Allergy (Severe, Verified 06/03/17 13:23) Generalized rash Past Medical History - General Information source: Patient - Social History Smoking Status: Never Smoker Frequency of alcohol use: None Drug Abuse: None Lives with: Alone Family History: Reviewed & Not Pertinent - Past Medical History Cardiac Medical History: Reports: Hx Hypercholesterolemia, Hx Hypertension Denies: Hx Coronary Artery Disease, Hx Heart Attack Pulmonary Medical History: Reports: Hx Asthma - no episodes in "quite awhile", Hx COPD Denies: Hx Bronchitis, Hx Pneumonia Neurological Medical History: Denies: Hx Cerebrovascular Accident, Hx Seizures Endocrine Medical History: Reports: Hx Diabetes Mellitus Type 2 Renal/ Medical History: Reports: Hx Kidney Stones - kidney disease. 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 HENT: Negative for sore throat. Eyes: Negative for visual changes. Cardiovascular: Negative for chest pain. Respiratory: Negative for shortness of breath. Gastrointestinal: Positive for vomiting Genitourinary: Negative for dysuria. Musculoskeletal: Negative for back pain. Skin: Negative for rash. Neurological: Positive for headache 10 point ROS negative except as marked above and in HPI. Physical Exam - Vital signs Vitals: Temp Pulse Resp BP Pulse Ox 98.0 F 56 L 20 195/70 H 97 07/30/17 23:30 07/30/17 23:30 07/30/17 23:30 07/30/17 23:30 07/30/17 23:30 Interpretation: Normal Notes: PHYSICAL EXAMINATION: GENERAL: Appears moderately uncomfortable but no acute distress HEAD: Atraumatic, normocephalic. EYES: Pupils equal round and reactive to light, extraocular movements intact, sclera anicteric, conjunctiva are normal. ENT: nares patent, oropharynx clear without exudates. Moist mucous membranes. NECK: Normal range of motion, supple without lymphadenopathy LUNGS: Breath sounds clear to auscultation bilaterally and equal. No wheezes rales or rhonchi. HEART: Regular bradycardia without murmurs ABDOMEN: Soft, nontender, normoactive bowel sounds. No guarding, no rebound. No masses appreciated. EXTREMITIES: Normal range of motion, no pitting or edema. No cyanosis. NEUROLOGICAL: Face symmetric. Tongue protrudes midline. Extraocular motions intact. Pupils are 2 mm and equally reactive. Normal speech. 5 out of 5 strength in both the distal and proximal upper and lower extremities bilaterally. Sensation is grossly intact throughout. Finger to nose testing normal. Pronator drift normal. PSYCH: Moderately anxious SKIN: Warm, Dry, normal turgor, no rashes or lesions noted. Course - Re-evaluation Re-evalutation: 07/31/17 01:02 Patient presents with marked elevation of his blood pressure into the 230s systolic with associated headache and vomiting. Symptoms are consistent with an hypertensive emergency. Patient is actively vomiting at time of my assessment. The headache has been gradual in onset and progressively worsening throughout the day, clinical history is not consistent with an acute subarachnoid hemorrhage given his characterization of the headache. He also reports he has had very similar symptoms in the past with uncontrolled hypertension. Patient is a very pleasant but poor historian, cannot tell me what he normally takes her blood pressure but states he has taken the medications that are usually prescribed to him today. He denies any chest pain , shortness of breath, syncope, focal weakness or numbness. He has no focal neurologic deficits on examination. 2+ pitting edema in the bilateral lower extremities which he reports is chronic and baseline secondary to "work boots". Given the patient's degree of patient's symptoms will begin hydralazine IV, clonidine patch, provide Compazine for nausea and headache control and reassess. Will also obtain basic laboratories and a CT of the head. 07/31/[address] head negative for any acute intracranial bleed. Patient reports his headache is ongoing without significant improvement. Blood pressures remain elevated. Will continue to reassess frequently. 07/31/17 02:17 Patient's blood pressure continues to be markedly elevated despite 20 mg's of IV hydralazine and a clonidine patch. He states that his headache is not improved after Compazine and these measures. At this point given his ongoing severe hypertension and ongoing severe headache with associated nausea I will start a nicardipine infusion. I will discuss with the hospitalist for admission. Will continue to reassess the patient frequently. - Vital Signs Vital signs: Temp Pulse Resp BP Pulse Ox 98.0 F 56 L 20 195/70 H 97 07/30/17 23:30 07/30/17 23:30 07/30/17 23:30 07/30/17 23:30 07/30/17 23:30 - Laboratory Result Diagrams: 07/31/17 01:16 07/31/17 01:16 Laboratory results interpreted by me: 07/31/17 07/31/17 01:16 01:16 RBC 3.89 L Hgb 11.6 L Hct 34.5 L RDW 14.6 H Chloride 111 H BUN 30 H Creatinine 2.78 H Est GFR ( Amer) 28 L Est GFR (Non-Af Amer) 24 L Glucose 122 H Alkaline Phosphatase 37 L Total Protein 5.5 L Albumin 3.1 L - Diagnostic Test Radiology reviewed: Image reviewed, Reports reviewed Radiology results interpreted by me: 07/31/17 02:17 CT head: No acute intracranial bleed - EKG Interpretation by Me Additional EKG results interpreted by me: 07/31/17 02:18 Sinus bradycardia. Rate 56. No ST elevations or depressions. QTC is 487. Critical Care Note - Critical Care Note Total time excluding time spent on procedures (mins): 36 Comments: Critical care time spent obtaining history from patient or surrogate, discussions with consultants, development of treatment plan with patient or surrogate, evaluation of patient's response to treatment, examination of patient , ordering and performing treatments and interventions, ordering and review of laboratory studies, re-evaluation of patient's condition, ordering and review of radiographic studies and review of old charts Discharge - Discharge Clinical Impression: Hypertensive emergency Vomiting Qualifiers: Vomiting type: unspecified Vomiting Intractability: non-intractable Nausea presence: with nausea Qualified Code(s): R11.2 - Nausea with vomiting, unspecified Headache Qualifiers: Headache type: unspecified Headache chronicity pattern: acute headache Intractability: intractable Qualified Code(s): R51 - Headache Condition: Fair Disposition: ADMITTED INPATIENT Admitting Provider: [facility] Admitted: [facility]
[2017-07-31] MEDS ORDERED: CLONIDINE 0.2 MG/24 HR PATCH.TDWK ONE (01:21)
[2017-07-31 01:27] LABS: ABSOLUTE BASOPHILS # (AUTO) 0.1 10^3/uL (0.0-0.2); ABSOLUTE LYMPHOCYTES (AUTO) 1.6 10^3/uL (0.5-4.7); ABSOLUTE MONOCYTES (AUTO) 0.4 10^3/uL (0.1-1.4); ABSOLUTE NEUT (AUTO) 5.7 10^3/uL (1.7-8.2); BASOPHILS % (AUTO) 0.9 % (0-2); EOSINOPHILS % (AUTO) 0.3 % (0-6); HEMATOCRIT 34.5 % (37.9-51.0); HEMOGLOBIN 11.6 g/dL (13.5-17.0); LYMPHOCYTES % (AUTO) 20.5 % (13-45); MEAN CORPUSCULAR HEMOGLOBIN 29.8 pg (27.0-33.4); MEAN CORPUSCULAR HGB CONC 33.6 g/dL (32.0-36.0); MEAN CORPUSCULAR VOLUME 89 fl (80-97); MONOCYTES % (AUTO) 5.3 % (3-13); PLATELET COUNT 178 10^3/uL (150-450); RED BLOOD COUNT 3.89 10^6/uL (4.35-5.55); RED CELL DISTRIBUTION WIDTH 14.6 % (11.5-14.0); TOTAL CELLS COUNTED % (AUTO) 100 %; WHITE BLOOD COUNT 7.8 10^3/uL (4.0-10.5)
[2017-07-31 01:49] LABS: ALANINE AMINOTRANSFERASE 30 U/L (21-72); ALBUMIN 3.1 g/dL (3.5-5.0); ALKALINE PHOSPHATASE 37 U/L (38-126); ANION GAP 8 (5-19); ASPARTATE AMINO TRANSFERASE 19 U/L (17-59); BILIRUBIN,DIRECT 0.3 mg/dL (0.0-0.4); BLOOD UREA NITROGEN 30 mg/dL (7-20); CALCIUM 9.3 mg/dL (8.4-10.2); CARBON DIOXIDE 23 mmol/L (22-30); CHLORIDE 111 mmol/L (98-107); GLUCOSE 122 mg/dL (75-110); LIPASE 47.2 U/L (23-300); POTASSIUM 4.3 mmol/L (3.6-5.0); SODIUM 142.4 mmol/L (137-145); TOTAL PROTEIN 5.5 g/dL (6.3-8.2)
--- NOTE | 2017-07-31 01:49 | RADIOLOGY REPORT (SQ) ---
EXAM DESCRIPTION: CT HEAD WITHOUT CLINICAL HISTORY: 57 years Male, hypertension, vomiting, headache COMPARISON: 06/03/2017. TECHNIQUE: No contrast. This exam was performed according to our departmental dose-optimization program, which includes automated exposure control, adjustment of the mA and/or kV according to patient size and/or use of iterative reconstruction technique. Limitation: Mild motion/streak artifact. FINDINGS: No hemorrhage or infarct. No mass, mass effect, or midline shift. Atherosclerosis. Brain and extra-axial structures appear intact. IMPRESSION: No acute findings. Limitation.
--- NOTE | 2017-07-31 02:08 | RADIOLOGY REPORT (SQ) ---
EXAM DESCRIPTION: CHEST SINGLE VIEW CLINICAL HISTORY: 57 years Male, cough COMPARISON: 02/19/2017. NUMBER OF VIEWS/TECHNIQUE: 1/AP LIMITATIONS: None. FINDINGS: Normal lung volume, clear parenchyma, prominent cardiac silhouette, and intact bony thorax. IMPRESSION: No acute cardiopulmonary findings.
[2017-07-31] MEDS ORDERED: NICARDIPINE HCL RTU, ISO-OS 20 MG/200 ML RTUINJ IV PRN ×2 (02:16→02:26)
[2017-07-31] MEDS ORDERED: NITROGLYCERIN 2% OINTMENT 1 GM PACKET ONE (02:37)
[2017-07-31] MEDS ORDERED: FUROSEMIDE INJ/PF 100 MG/10 ML SDV ONE (02:37)
[2017-07-31] MEDS ORDERED: FUROSEMIDE INJ/PF 40 MG/4 ML SDV IV ONE (02:42)
[2017-07-31] MEDS ORDERED: MAG HYDROX/AL HYDROX/SIMETH SUSP 30 ML UDCUP PO PRN (02:43)
[2017-07-31] MEDS ORDERED: MAGNESIUM HYDROXIDE SUSP 30 ML UDCUP PO PRN (02:43)
[2017-07-31 03:14] LABS: CREATINE KINASE MB 3.25 ng/mL (<4.55); TROPONIN I 0.016 ng/mL
[2017-07-31] MEDS ORDERED: HYDRALAZINE HCL 50 MG TABLET PO ONE (03:15)
[2017-07-31] MEDS ORDERED: CLONAZEPAM 1 MG TABLET PO ONE (03:15)
[2017-07-31] MEDS ORDERED: ATORVASTATIN CALCIUM 20 MG TABLET PO ONE (03:15)
[2017-07-31] MEDS ORDERED: CLONIDINE HCL 0.1 MG TABLET PO ONE (03:15)
[2017-07-31] MEDS ORDERED: ENALAPRILAT DIHYDRATE INJ/PF 2.5 MG/2 ML SDV IV ONE (05:23)
[2017-07-31] MEDS: ACETAMINOPHEN 325 MG TABLET PO PRN (05:51)
[2017-07-31] MEDS: HEPARIN SOD (PORCINE) 5,000 UNIT/ML 1 ML SYRINGE SUBCUT SCH ×3 (05:54→21:48)
[2017-07-31] MEDS ORDERED: LORAZEPAM INJ 2 MG/1 ML VIAL ONE (06:22)
--- NOTE | 2017-07-31 06:41 | PDOC H&P ---
History of Present Illness Admission Date/PCP: 07/31/17 02:47 Patient complains of: Uncontrolled blood pressure and headache History of Present Illness: CLARI TSAI JR is a 57 year old male with past medical history of obesity, obstructive sleep apnea, diabetes, anxiety, refractory hypertension and a recent MRI May 2017 showing 2.5 cm mass of the inferior right kidney. Patient is a very poor historian he does not recall his medications. He denies anxiety, chest pain nausea vomiting. He is referred to the hospitalist for admission. Past Medical History Cardiac Medical History: Reports: Hyperlipidema, Hypertension Denies: Coronary Artery Disease, Myocardial Infarction Pulmonary Medical History: Reports: Asthma - no episodes in "quite awhile", Chronic Obstructive Pulmonary Disease (COPD) Denies: Bronchitis, Pneumonia Neurological Medical History: Denies: Seizures Endocrine Medical History: Reports: Diabetes Mellitus Type 2 GI Medical History: Reports: Gastroesophageal Reflux Disease Musculoskeltal Medical History: Reports: Arthritis - hands Hematology: Denies: Anemia Social History Information Source: Patient Lives with: Alone Smoking Status: Never Smoker Frequency of Alcohol Use: None Drugs: None - Advance Directive Resuscitation Status: Full Code Family History Family History: CAD Parental Family History Reviewed: Yes Children Family History Reviewed: Yes Sibling(s) Family History Reviewed.: Yes Medication/Allergy Home Medications: Allopurinol [Zyloprim 300 mg Tablet] 300 mg PO DAILY 11/20/13 Atorvastatin Calcium 1 tab PO QHS 11/20/13 Clonazepam [Klonopin] 1 mg PO QHS 11/20/13 Colchicine [Colcrys 0.6 mg Tablet] 1 tab PO BID 11/20/13 Diltiazem HCl [Diltiazem ER] 1 tab PO DAILY 11/20/13 Fenofibrate 1 tab PO QHS 11/20/13 Furosemide [Lasix] 40 mg PO QAM 11/20/13 Gabapentin [Neurontin 300 mg Capsule] 1 tab PO TID 11/20/13 Hydralazine HCl 1 tab PO DAILY 11/20/13 Insulin Aspart [Novolog Flexpen] 25 units SQ TID 11/20/13 Insulin Glargine,Hum.rec.anlog [Lantus Insulin 100 Unit/1 ml 10 ml] 50 units SQ BID 11/20/13 Lisinopril 1 tab PO DAILY 11/20/13 Lovaza 1 cap PO BID 11/20/13 Metoprolol Tartrate [Lopressor 100 mg Tablet] 100 mg PO Q12H 11/20/13 Omeprazole 40 mg PO QHS 11/20/13 Potassium Chloride [Klor-Con 10 Meq Tablet.sa] 20 meq PO DAILY 11/20/13 Tylenol #3 1 tab PO TID PRN 11/20/13 Clonidine HCl [Catapres] 0.1 mg PO Q12 #10 tab 05/21/15 Allergies/Adverse Reactions: povidone-iodine [From Betadine] Allergy (Severe, Verified 06/03/17 13:23) Generalized rash Soap [From Betadine] Allergy (Severe, Verified 06/03/17 13:23) Generalized rash Review of Systems Constitutional: PRESENT: fatigue, headache(s) Eyes: ABSENT: visual disturbances Ears: ABSENT: hearing changes Cardiovascular: PRESENT: as per HPI, dyspnea on exertion, edema Respiratory: ABSENT: cough, hemoptysis Gastrointestinal: ABSENT: abdominal pain, constipation, diarrhea, hematemesis, hematochezia, nausea, vomiting Genitourinary: ABSENT: dysuria, hematuria Musculoskeletal: ABSENT: joint swelling Integumentary: ABSENT: rash, wounds Neurological: ABSENT: abnormal gait, abnormal speech, confusion, dizziness, focal weakness, syncope Psychiatric: ABSENT: anxiety, depression, homidical ideation, suicidal ideation Endocrine: ABSENT: cold intolerance, heat intolerance, polydipsia, polyuria Hematologic/Lymphatic: ABSENT: easy bleeding, easy bruising Physical Exam Vital Signs: Temp Pulse Resp BP Pulse Ox 98.0 F 56 L 21 H 205/68 H 94 07/30/17 23:30 07/30/17 23:30 07/31/17 06:01 07/31/17 06:01 07/31/17 06:01 Intake & Output 07/29/17 07/30/17 07/31/17 11:59 11:59 11:59 Output Total 600 Balance -600 General appearance: PRESENT: cooperative, mild distress, morbidly obese Head exam: PRESENT: atraumatic, normocephalic Eye exam: PRESENT: conjunctiva pink, EOMI, PERRLA. ABSENT: scleral icterus Ear exam: PRESENT: normal external ear exam Mouth exam: PRESENT: moist, tongue midline Neck exam: PRESENT: JVD. ABSENT: carotid bruit, lymphadenopathy, thyromegaly Respiratory exam: PRESENT: clear to auscultation octavia, crackles. ABSENT: rales, rhonchi, wheezes Cardiovascular exam: PRESENT: gallop, RRR. ABSENT: diastolic murmur, rubs, systolic murmur Pulses: PRESENT: normal dorsalis pedis pul GI/Abdominal exam: PRESENT: normal bowel sounds, soft. ABSENT: distended, guarding, mass, organolmegaly, rebound, tenderness Rectal exam: PRESENT: deferred Extremities exam: PRESENT: +2 edema Neurological exam: PRESENT: alert, awake, oriented to person, oriented to place , oriented to time, oriented to situation, CN II-XII grossly intact. ABSENT: motor sensory deficit Psychiatric exam: PRESENT: appropriate affect, normal mood. ABSENT: homicidal ideation, suicidal ideation Results Impressions: Head CT 07/31/17 01:02 IMPRESSION: No acute findings. Limitation. Chest X-Ray 07/31/17 01:05 IMPRESSION: No acute cardiopulmonary findings. Assessment & Plan - Diagnosis (1) Hypertensive emergency Is this a current diagnosis for this admission?: Yes Plan: Refractory hypertension, right kidney mass concern for primary aldosteronism. Aldosterone/rennin ratio, renin activity, cortisol level ordered. Continue Cardene, trial Aldactone following lab draw. (2) Primary aldosteronism Is this a current diagnosis for this admission?: Yes Plan: 2.5 cm mass on the right kidney, aldosterone rennin ratio, renin activity ordered. Cardene followed by aldosterone pending lab draw. (3) Obstructive sleep apnea Is this a current diagnosis for this admission?: Yes Plan: BiPAP and supportive care (4) Diabetes Is this a current diagnosis for this admission?: Yes Plan: Home regiment with sliding scale. - Time Time Spent: 50 to 70 Minutes - Inpatient Certification Medical Necessity: Need Close Monitoring Due to Risk of Patient Decompensation
[2017-07-31] MEDS ORDERED: LORAZEPAM INJ 2 MG/1 ML VIAL IV ONE (06:55)
[2017-07-31 09:04] LABS: CREATINE KINASE MB 2.09 ng/mL (<4.55)
[2017-07-31 09:08] LABS: TROPONIN I 0.037 ng/mL
--- NOTE | 2017-07-31 09:55 | EKG REPORT ---
SEVERITY:- ABNORMAL ECG - SINUS RHYTHM LEFT ANTERIOR FASCICULAR BLOCK PROBABLE LEFT VENTRICULAR HYPERTROPHY : Confirmed by: Genoveva Whalen 31-Jul-2017 09:54:48
[2017-07-31] MEDS ORDERED: CARVEDILOL 6.25 MG TABLET PO SCH (10:00)
[2017-07-31] MEDS: ASPIRIN 81 MG TABLET, ENT COATED PO SCH (10:40)
[2017-07-31] MEDS: DOCUSATE SODIUM 100 MG CAPSULE PO SCH (10:41)
[2017-07-31] MEDS: POTASSIUM CHLORIDE 10 MEQ TABLET.SA PO SCH ×2 (10:42→21:48)
[2017-07-31] MEDS: GABAPENTIN 300 MG CAPSULE PO SCH ×3 (10:42→18:34)
[2017-07-31] MEDS: NITROGLYCERIN 10 MG (0.4 MG/HR) PATCH.TD24 TD SCH (10:43)
[2017-07-31] MEDS: METOPROLOL TARTRATE 100 MG TABLET PO SCH ×2 (10:45→21:49)
[2017-07-31] MEDS: HYDRALAZINE HCL 50 MG TABLET PO SCH ×3 (10:45→18:34)
[2017-07-31] MEDS: CLONIDINE HCL 0.1 MG TABLET PO SCH ×2 (10:45→21:48)
[2017-07-31] MEDS: FUROSEMIDE INJ/PF 40 MG/4 ML SDV IV SCH ×2 (10:46→21:48)
[2017-07-31 15:06] LABS: CREATINE KINASE MB 1.61 ng/mL (<4.55); TROPONIN I 0.039 ng/mL
[2017-07-31] MEDS: CLONAZEPAM 1 MG TABLET PO SCH (21:49)
[2017-07-31] MEDS: ATORVASTATIN CALCIUM 20 MG TABLET PO SCH (21:49)
[2017-08-01] MEDS ORDERED: DEXTROSE 40% GEL 15 GM TUBE PO PRN ×2 (01:16)
[2017-08-01] MEDS ORDERED: GLUCAGON,HUMAN RECOMB 1 MG INJ IM PRN (01:16)
[2017-08-01] MEDS ORDERED: DEXTROSE 50%-WATER 25 GM/50 ML DISP.SYRIN IV PRN ×2 (01:16)
[2017-08-01] MEDS: HEPARIN SOD (PORCINE) 5,000 UNIT/ML 1 ML SYRINGE SUBCUT SCH ×3 (06:45→21:28)
[2017-08-01] MEDS ORDERED: CLONIDINE HCL 0.2 MG TABLET PO ONE (07:30)
[2017-08-01] MEDS: GABAPENTIN 300 MG CAPSULE PO SCH ×3 (07:37→17:10)
[2017-08-01] MEDS: DOCUSATE SODIUM 100 MG CAPSULE PO SCH (07:38)
[2017-08-01] MEDS: ASPIRIN 81 MG TABLET, ENT COATED PO SCH (07:38)
[2017-08-01] MEDS: HYDRALAZINE HCL 50 MG TABLET PO SCH ×2 (07:38→21:27)
[2017-08-01] MEDS: POTASSIUM CHLORIDE 10 MEQ TABLET.SA PO SCH ×2 (07:38→21:27)
[2017-08-01] MEDS: NITROGLYCERIN 10 MG (0.4 MG/HR) PATCH.TD24 TD SCH (07:39)
[2017-08-01] MEDS: FUROSEMIDE INJ/PF 40 MG/4 ML SDV IV SCH ×2 (07:39→21:27)
[2017-08-01] MEDS: ACETAMINOPHEN 325 MG TABLET PO PRN (07:53)
[2017-08-01] MEDS: CLONIDINE HCL 0.1 MG TABLET PO SCH (07:55)
[2017-08-01] MEDS ORDERED: INSULIN GLARGINE,HUM.REC.ANLOG 300 UNIT/3 ML INSULN.PEN SUBCUT SCH (10:00)
[2017-08-01] MEDS ORDERED: HYDRALAZINE HCL INJ/PF 20 MG/1 ML SDV ONE (12:03)
[2017-08-01] MEDS ORDERED: HYDRALAZINE HCL INJ/PF 20 MG/1 ML SDV IV ONE (12:30)
[2017-08-01] MEDS: CLONIDINE HCL 0.2 MG TABLET PO SCH ×2 (13:17→21:27)
--- NOTE | 2017-08-01 13:41 | PDOC PROGRESS REPORT ---
Subjective Progress Note for:: 08/01/17 Subjective:: Headaches better post intermittent with elevation in his blood pressure, no chest pain or shortness of breath or palpitations. No weakness or other neurologic compromise. Reason For Visit: HTN URGENCY,HEART FAILURE,VASCULAR DEMENTIA,ZACH Physical Exam Vital Signs: Temp Pulse Resp BP Pulse Ox 97.5 F 56 L 20 225/86 H 100 08/01/17 11:50 08/01/17 11:50 08/01/17 11:50 08/01/17 11:50 08/01/17 11:50 Intake & Output 07/31/17 08/01/17 08/02/17 06:59 06:59 06:59 Intake Total 310 354 Output Total 600 1700 700 Balance -600 -1390 -346 Weight 135.5 kg GEN: NAD, well-developed, well-nourished HEENT: Normocephalic/atraumatic CV: RRR, NL S1S2 LUNGS: CTA bilaterally ABDOMEN Soft, NT, +BS EXTERMITIES: No e/c/c NEURO: Alert, oriented 3, nonfocal Results Laboratory Results: 07/31/17 07/31/17 07/31/17 08:12 08:12 14:15 Creatine Kinase 151 117 CK-MB (CK-2) 2.09 Troponin I 0.037 07/31/17 14:15 Creatine Kinase CK-MB (CK-2) 1.61 Troponin I 0.039 Impressions: Head CT 07/31/17 01:02 IMPRESSION: No acute findings. Limitation. Chest X-Ray 07/31/17 01:05 IMPRESSION: No acute cardiopulmonary findings. Assessment & Plan - Diagnosis (1) Hypertensive emergency Is this a current diagnosis for this admission?: Yes Plan: Blood pressure is being running high between medication doses. Will resume diltiazem and lisinopril, continue hydralazine. Clonidine increased to 0.2 mg every 8 hours as needed. Patient also on Lasix, a diuretics. Workup for hyperaldosteronism labs pending. Will consider adding spironolactone if positive for hyperaldosteronism. (2) Headache Qualifiers: Headache type: unspecified Headache chronicity pattern: acute headache Intractability: intractable Qualified Code(s): R51 - Headache Plan: Improved. Continue management of blood pressure. Analgesics as needed. (3) Obstructive sleep apnea Is this a current diagnosis for this admission?: Yes (4) Morbid obesity Is this a current diagnosis for this admission?: Yes Plan: Weight loss, including diet and exercise measures, advised.
[2017-08-01] MEDS ORDERED: LISINOPRIL 10 MG TABLET PO ONE (14:00)
[2017-08-01] MEDS ORDERED: HYDRALAZINE HCL 50 MG TABLET PO SCH (14:00)
[2017-08-01] MEDS ORDERED: DILTIAZEM HCL 120 MG CAP.SR.24H PO ONE ×2 (14:00→19:00)
[2017-08-01] MEDS ORDERED: IBUPROFEN 800 MG TABLET PO PRN ×2 (16:57→18:40)
[2017-08-01] MEDS: CLONAZEPAM 1 MG TABLET PO SCH (21:27)
[2017-08-01] MEDS: LABETALOL HCL 200 MG TABLET PO SCH (21:27)
[2017-08-01] MEDS: ATORVASTATIN CALCIUM 20 MG TABLET PO SCH (21:28)
[2017-08-01] MEDS ORDERED: DILTIAZEM HCL 120 MG CAP.SR.24H PO SCH (22:00)
[2017-08-02] MEDS: ACETAMINOPHEN 325 MG TABLET PO PRN (04:24)
[2017-08-02] MEDS: HEPARIN SOD (PORCINE) 5,000 UNIT/ML 1 ML SYRINGE SUBCUT SCH ×3 (05:17→22:16)
[2017-08-02] MEDS: CLONIDINE HCL 0.2 MG TABLET PO SCH ×3 (05:17→22:16)
[2017-08-02] MEDS: LABETALOL HCL 200 MG TABLET PO SCH ×2 (05:17→13:35)
[2017-08-02] MEDS: HYDRALAZINE HCL 50 MG TABLET PO SCH ×3 (05:17→22:17)
[2017-08-02 05:24] LABS: ABSOLUTE BASOPHILS # (AUTO) 0.1 10^3/uL (0.0-0.2); ABSOLUTE EOSINOPHILS # (AUTO) 0.2 10^3/uL (0.0-0.6); ABSOLUTE LYMPHOCYTES (AUTO) 2.3 10^3/uL (0.5-4.7); ABSOLUTE MONOCYTES (AUTO) 0.5 10^3/uL (0.1-1.4); ABSOLUTE NEUT (AUTO) 3.5 10^3/uL (1.7-8.2); BASOPHILS % (AUTO) 1.1 % (0-2); EOSINOPHILS % (AUTO) 3.3 % (0-6); HEMATOCRIT 30.9 % (37.9-51.0); HEMOGLOBIN 10.3 g/dL (13.5-17.0); LYMPHOCYTES % (AUTO) 34.3 % (13-45); MEAN CORPUSCULAR HEMOGLOBIN 29.6 pg (27.0-33.4); MEAN CORPUSCULAR HGB CONC 33.4 g/dL (32.0-36.0); MEAN CORPUSCULAR VOLUME 89 fl (80-97); PLATELET COUNT 157 10^3/uL (150-450); RED BLOOD COUNT 3.48 10^6/uL (4.35-5.55); RED CELL DISTRIBUTION WIDTH 13.9 % (11.5-14.0); SEGMENTED NEUTROPHILS % (AUTO) 53.3 % (42-78); TOTAL CELLS COUNTED % (AUTO) 100 %; WHITE BLOOD COUNT 6.6 10^3/uL (4.0-10.5)
[2017-08-02 05:39] LABS: ANION GAP 6 (5-19); BLOOD UREA NITROGEN 45 mg/dL (7-20); CALCIUM 8.6 mg/dL (8.4-10.2); CARBON DIOXIDE 27 mmol/L (22-30); CHLORIDE 108 mmol/L (98-107); GLUCOSE 148 mg/dL (75-110); POTASSIUM 4.1 mmol/L (3.6-5.0); SODIUM 141.1 mmol/L (137-145)
[2017-08-02] MEDS: INSULIN LISPRO 100 UNIT/ML 3 ML VIAL SUBCUT PRN ×3 (08:01→16:45)
[2017-08-02] MEDS ORDERED: DILTIAZEM HCL 180 MG CAPSULE.CR PO SCH (10:00)
[2017-08-02] MEDS ORDERED: DILTIAZEM HCL 120 MG CAP.SR.24H PO SCH (10:00)
[2017-08-02] MEDS ORDERED: LISINOPRIL 10 MG TABLET PO SCH (10:00)
[2017-08-02] MEDS: LISINOPRIL 10 MG TABLET PO SCH (10:18)
[2017-08-02] MEDS: DOCUSATE SODIUM 100 MG CAPSULE PO SCH (10:19)
[2017-08-02] MEDS: ASPIRIN 81 MG TABLET, ENT COATED PO SCH (10:19)
[2017-08-02] MEDS: GABAPENTIN 300 MG CAPSULE PO SCH ×3 (10:19→17:27)
[2017-08-02] MEDS: POTASSIUM CHLORIDE 10 MEQ TABLET.SA PO SCH ×2 (10:19→22:17)
[2017-08-02] MEDS: NITROGLYCERIN 10 MG (0.4 MG/HR) PATCH.TD24 TD SCH (10:20)
[2017-08-02] MEDS: FUROSEMIDE INJ/PF 40 MG/4 ML SDV IV SCH ×2 (10:20→22:17)
[2017-08-02] MEDS ORDERED: CLONIDINE HCL 0.1 MG TABLET PO SCH ×2 (22:00)
[2017-08-02] MEDS: ATORVASTATIN CALCIUM 20 MG TABLET PO SCH (22:16)
[2017-08-02] MEDS: CLONAZEPAM 1 MG TABLET PO SCH (22:16)
--- NOTE | 2017-08-02 22:18 | PDOC PROGRESS REPORT ---
Subjective Progress Note for:: 08/02/17 Subjective:: Complaints of dizziness and fatigue and dry mouth since increasing clonidine dose from 0.1 mg to 2 mg every 8 hours. Still with intermittent headaches, especially when his blood pressures spike up. No chest pain or shortness of breath no palpitations. Denies fever or chills. Reason For Visit: HTN URGENCY,HEART FAILURE,VASCULAR DEMENTIA,ZACH Physical Exam Vital Signs: Temp Pulse Resp BP Pulse Ox 97.5 F 50 L 20 164/76 H 98 08/02/17 12:02 08/02/17 14:00 08/02/17 12:02 08/02/17 12:02 08/02/17 12:02 Intake & Output 08/01/17 08/02/17 08/03/17 06:59 06:59 06:59 Intake Total 310 2704 236 Output Total 1700 3060 800 Balance -7850 -356 -564 Weight 135.5 kg 140.2 kg GEN: NAD, well-developed, well-nourished HEENT: Normocephalic/atraumatic CV: RRR, NL S1S2 LUNGS: CTA bilaterally ABDOMEN Soft, NT, +BS EXTERMITIES: No e/c/c NEURO: Alert, oriented 3, nonfocal Results Laboratory Results: 08/02/17 04:58 08/02/17 04:58 08/02/17 08/02/17 04:58 04:58 WBC 6.6 RBC 3.48 L Hgb 10.3 L Hct 30.9 L MCV 89 MCH 29.6 MCHC 33.4 RDW 13.9 Plt Count 157 Seg Neutrophils % 53.3 Lymphocytes % 34.3 Monocytes % 8.0 Eosinophils % 3.3 Basophils % 1.1 Absolute Neutrophils 3.5 Absolute Lymphocytes 2.3 Absolute Monocytes 0.5 Absolute Eosinophils 0.2 Absolute Basophils 0.1 Sodium 141.1 Potassium 4.1 Chloride 108 H Carbon Dioxide 27 Anion Gap 6 BUN 45 H Creatinine 3.08 H Est GFR ( Amer) 25 L Est GFR (Non-Af Amer) 21 L Glucose 148 H Calcium 8.6 07/31/17 07/31/17 07/31/17 08:12 08:12 14:15 Creatine Kinase 151 117 CK-MB (CK-2) 2.09 Troponin I 0.037 07/31/17 14:15 Creatine Kinase CK-MB (CK-2) 1.61 Troponin I 0.039 Impressions: Head CT 07/31/17 01:02 IMPRESSION: No acute findings. Limitation. Chest X-Ray 07/31/17 01:05 IMPRESSION: No acute cardiopulmonary findings. Assessment & Plan - Diagnosis (1) Hypertensive emergency Is this a current diagnosis for this admission?: Yes (2) Headache Qualifiers: Headache type: unspecified Headache chronicity pattern: acute headache Intractability: intractable Qualified Code(s): R51 - Headache (3) Obstructive sleep apnea Is this a current diagnosis for this admission?: Yes (4) Morbid obesity Is this a current diagnosis for this admission?: Yes - Plan Summary Plan Summary: Blood pressure is better this morning, but can spike very quickly. Patient on a lot of medications, and complaining of dizziness and feeling weak. Of note is that he was on labetalol 600 mg every 8 hours as outpatient as well as Cardizem CD 360 mg daily. I suspect he may not be compliant with these medications as outpatient because of this feeling. Checking his heart rate reveals they are running in the 40s, which can be caused by these medications. Will discontinue labetalol for now as well as diltiazem. Will start amlodipine 10 mg daily, as this is less likely to affect the heart rate. Will continue clonidine 0.2 mg every 8 hours. Workup of secondary hypertension in progress. Aldosterone, rennin activity, and aldosterone/rennin ratio were ordered 07/31/17 and they are pending. We will also order Doppler of renal artery to rule out renal artery stenosis. Patient is already on Lasix, which is a diuretics. Will likely need addition of spironolactone to his medications if it BPs remain uncontrolled, especially with stopping labetalol dose, and especially if patient suspected of having hyperaldosteronism depending on the above labs results. Can also consider restarting labetalol at the lower dose, such as 200 mg twice daily if heart rate improves.
[2017-08-03 05:12] LABS: ABSOLUTE BASOPHILS # (AUTO) 0.1 10^3/uL (0.0-0.2); ABSOLUTE EOSINOPHILS # (AUTO) 0.3 10^3/uL (0.0-0.6); ABSOLUTE LYMPHOCYTES (AUTO) 2.2 10^3/uL (0.5-4.7); ABSOLUTE MONOCYTES (AUTO) 0.6 10^3/uL (0.1-1.4); ABSOLUTE NEUT (AUTO) 4.2 10^3/uL (1.7-8.2); BASOPHILS % (AUTO) 0.8 % (0-2); EOSINOPHILS % (AUTO) 3.6 % (0-6); HEMATOCRIT 29.9 % (37.9-51.0); HEMOGLOBIN 10.2 g/dL (13.5-17.0); LYMPHOCYTES % (AUTO) 30.2 % (13-45); MEAN CORPUSCULAR HEMOGLOBIN 30.6 pg (27.0-33.4); MEAN CORPUSCULAR HGB CONC 34.2 g/dL (32.0-36.0); MEAN CORPUSCULAR VOLUME 90 fl (80-97); MONOCYTES % (AUTO) 7.6 % (3-13); PLATELET COUNT 152 10^3/uL (150-450); RED BLOOD COUNT 3.33 10^6/uL (4.35-5.55); RED CELL DISTRIBUTION WIDTH 14.2 % (11.5-14.0); SEGMENTED NEUTROPHILS % (AUTO) 57.8 % (42-78); TOTAL CELLS COUNTED % (AUTO) 100 %; WHITE BLOOD COUNT 7.3 10^3/uL (4.0-10.5)
[2017-08-03] MEDS: CLONIDINE HCL 0.2 MG TABLET PO SCH (05:17)
[2017-08-03] MEDS: HYDRALAZINE HCL 50 MG TABLET PO SCH ×3 (05:17→22:04)
[2017-08-03] MEDS: HEPARIN SOD (PORCINE) 5,000 UNIT/ML 1 ML SYRINGE SUBCUT SCH ×3 (05:17→22:04)
[2017-08-03 05:29] LABS: ANION GAP 8 (5-19); BLOOD UREA NITROGEN 48 mg/dL (7-20); CALCIUM 8.7 mg/dL (8.4-10.2); CARBON DIOXIDE 26 mmol/L (22-30); CHLORIDE 108 mmol/L (98-107); GLUCOSE 140 mg/dL (75-110); POTASSIUM 4.3 mmol/L (3.6-5.0); SODIUM 142.2 mmol/L (137-145)
--- NOTE | 2017-08-03 08:19 | RADIOLOGY REPORT (SQ) ---
EXAM DESCRIPTION: U/S LTD DUPLEX ART/CARLENE FLOW; U/S RETROPERITON (RENAL/AORTA) COMPLETED DATE/TIME: 08/03/2017 6:49 am REASON FOR STUDY: Doppler Renal artery--Pt w/ resistant hypertension; PT W/ RESISTANT HYPERTENSION COMPARISON: MRI abdomen 06/03/2017 TECHNIQUE: Realtime and static grayscale images acquired. Selected color Doppler, velocities and spe ctral images recorded. LIMITATIONS: Body habitus, bowel gas. Post left nephrectomy FINDINGS: RIGHT KIDNEY: RENAL ARTERY VELOCITIES: 55 cm/sec. Segmental artery velocity 68 cm/sec. RENAL VEIN: Color doppler flow present, patent. VELOCITY RATIO: 0.4. Normal waveforms. KIDNEY: 14 cm in length. 2 cm nodule right lower pole kidney better visualized on the MRI 06/03/20 17. LEFT KIDNEY: Post left nephrectomy BLADDER: Normal. OTHER: No other significant finding. IMPRESSION: NO DOPPLER EVIDENCE OF HEMODYNAMICALLY SIGNIFICANT RIGHT RENAL ARTERY STENOSIS. Solid nodule 2 cm diameter right lower pole kidney not as well seen as on the prior MRI exam from Post left nephrectomy COMMENT: NORMAL RENAL ARTERY/AORTA VELOCITY RATIO IS LESS THAN OR EQUAL TO 3.5. TECHNICAL DOCUMENTATION: JOB ID: [id number] [employer]- All Rights Reserved
[2017-08-03] MEDS: FUROSEMIDE INJ/PF 40 MG/4 ML SDV IV SCH (09:18)
[2017-08-03] MEDS: AMLODIPINE BESYLATE 10 MG TABLET PO SCH (09:18)
[2017-08-03] MEDS: ASPIRIN 81 MG TABLET, ENT COATED PO SCH (09:19)
[2017-08-03] MEDS: DOCUSATE SODIUM 100 MG CAPSULE PO SCH (09:19)
[2017-08-03] MEDS: LISINOPRIL 10 MG TABLET PO SCH (09:20)
[2017-08-03] MEDS: GABAPENTIN 300 MG CAPSULE PO SCH ×3 (09:20→17:33)
[2017-08-03] MEDS: POTASSIUM CHLORIDE 10 MEQ TABLET.SA PO SCH (09:21)
[2017-08-03] MEDS: NITROGLYCERIN 10 MG (0.4 MG/HR) PATCH.TD24 TD SCH (09:21)
--- NOTE | 2017-08-03 13:34 | PDOC PROGRESS REPORT ---
Subjective Progress Note for:: 08/03/17 Subjective:: CLARI TSAI JR is a 57 year old male with past medical history of obesity, obstructive sleep apnea, diabetes, anxiety, refractory hypertension and a recent MRI May 2017 showing 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 He also presented with marked elevation of his blood pressure into the 230s systolic. CT head negative for any acute intracranial bleed. He was started on a nicardipine drip and admitted for further treatment. August 01 His headache improved. However, his blood pressure remained high. Some of his home medications were continued, including beta-acacia, diltiazem, lisinopril, and hydralazine. Torsemide was not continued. He was started on IV Lasix twice daily. In addition he was started on Spironolactone out of concern for hyperaldosteronism. Clonidine was also added. Aug 02 Because of bradycardia, labetalol and Cardizem was stopped. Amlodipine 10 mg daily was started. Aldosterone, and aldosterone/renin ratio - pending Aug 03 No complaints today. Blood pressure still suboptimal. Reason For Visit: HTN URGENCY,HEART FAILURE,VASCULAR DEMENTIA,ZACH Physical Exam Vital Signs: Temp Pulse Resp BP Pulse Ox 98.3 F 54 L 20 178/66 H 94 08/03/17 07:40 08/03/17 07:40 08/03/17 07:40 08/03/17 07:40 08/03/17 07:40 Intake & Output 08/02/17 08/03/17 08/04/17 06:59 06:59 06:59 Intake Total 2704 929 Output Total 3067 2425 Balance -356 -1496 Weight 140.2 kg 139.4 kg General appearance: PRESENT: no acute distress, obese Head exam: PRESENT: atraumatic, normocephalic Eye exam: PRESENT: EOMI, PERRLA Respiratory exam: PRESENT: clear to auscultation octavia. ABSENT: rales, rhonchi, wheezes Cardiovascular exam: PRESENT: RRR. ABSENT: diastolic murmur, rubs, systolic murmur GI/Abdominal exam: PRESENT: normal bowel sounds, soft. ABSENT: distended, guarding, mass, organolmegaly, rebound, tenderness Extremities exam: PRESENT: +2 edema - BLE edema Musculoskeletal exam: PRESENT: ambulatory Neurological exam: PRESENT: alert, awake, oriented to person, oriented to place , oriented to time, oriented to situation, CN II-XII grossly intact. ABSENT: motor sensory deficit Psychiatric exam: PRESENT: appropriate affect, normal mood. ABSENT: homicidal ideation, suicidal ideation Results Laboratory Results: 08/03/17 04:25 08/03/17 04:25 08/03/17 08/03/17 04:25 04:25 WBC 7.3 RBC 3.33 L Hgb 10.2 L Hct 29.9 L MCV 90 MCH 30.6 MCHC 34.2 RDW 14.2 H Plt Count 152 Seg Neutrophils % 57.8 Lymphocytes % 30.2 Monocytes % 7.6 Eosinophils % 3.6 Basophils % 0.8 Absolute Neutrophils 4.2 Absolute Lymphocytes 2.2 Absolute Monocytes 0.6 Absolute Eosinophils 0.3 Absolute Basophils 0.1 Sodium 142.2 Potassium 4.3 Chloride 108 H Carbon Dioxide 26 Anion Gap 8 BUN 48 H Creatinine 3.29 H Est GFR ( Amer) 23 L Est GFR (Non-Af Amer) 19 L Glucose 140 H Calcium 8.7 07/31/17 07/31/17 07/31/17 08:12 08:12 14:15 Creatine Kinase 151 117 CK-MB (CK-2) 2.09 Troponin I 0.037 07/31/17 14:15 Creatine Kinase CK-MB (CK-2) 1.61 Troponin I 0.039 Impressions: Head CT 07/31/17 01:02 IMPRESSION: No acute findings. Limitation. Chest X-Ray 07/31/17 01:05 IMPRESSION: No acute cardiopulmonary findings. Renal Ultrasound 08/03/17 00:00 IMPRESSION: NO DOPPLER EVIDENCE OF HEMODYNAMICALLY SIGNIFICANT RIGHT RENAL ARTERY STENOSIS. Solid nodule 2 cm diameter right lower pole kidney not as well seen as on the prior MRI exam from 06/03/2017 Post left nephrectomy Vascular Ultrasound 08/03/17 00:00 IMPRESSION: NO DOPPLER EVIDENCE OF HEMODYNAMICALLY SIGNIFICANT RIGHT RENAL ARTERY STENOSIS. Solid nodule 2 cm diameter right lower pole kidney not as well seen as on the prior MRI exam from 06/03/2017 Post left nephrectomy Assessment & Plan - Diagnosis (1) Hypertensive urgency Plan: Discontinue clonidine. Resume labetalol 400 mg every 8 hours. Continue to hold diltiazem. (2) CKD (chronic kidney disease) stage 3, GFR 30-59 ml/min Is this a current diagnosis for this admission?: Yes Plan: Discontinue ibuprofen. Discontinue IV Lasix due to increasing creatinine. continue to monitor. (3) Morbid obesity Is this a current diagnosis for this admission?: Yes (4) Obstructive sleep apnea Is this a current diagnosis for this admission?: Yes - Time Time Spent with patient: 25-34 minutes Medications reviewed and adjusted accordingly: Yes Anticipated discharge: Home Within: within 24 hours
[2017-08-03] MEDS: LABETALOL HCL 200 MG TABLET PO SCH ×2 (14:35→22:04)
[2017-08-03] MEDS: ACETAMINOPHEN 325 MG TABLET PO PRN (15:03)
--- NOTE | 2017-08-03 18:35 | XCELERA REPORT ---
[address] [address] Transthoracic Echocardiogram Report Name: CLARI TSAI JR Age: 57 yrs Gender: Male : 1960 Patient Status: Inpatient Patient Location: [address] [place] [address] Study Date: 08/03/2017 02:11 PM Height: 73 in Weight: 309 lb BSA: 2.6 m2 Procedure: A complete two-dimensional transthoracic echocardiogram was performed (2D, M-mode, spectral and color flow Doppler). The study was technically adequate with some images being suboptimal in quality. Reason For Study: diastolic hf Ordering Physician: SHAYLEE LINDSAY Performed By: Jaqueline Negron Interpretation Summary The left ventricular ejection fraction is normal. Doppler measurements suggest pseudonormalized left ventricular relaxation, which is associated with grade II/IV or mild to moderate diastolic dysfunction There is mild to moderate concentric left ventricular hypertrophy. The left ventricle is grossly normal size. Wall motion cannot be accurately commented on, but no definite regional wall motion abnormalities noted. The right ventricular systolic function is normal. The left atrium is mildly dilated. The right atrium is normal in size There is a trace amount of mitral regurgitation There is no mitral valve stenosis. There is no aortic valve stenosis No aortic regurgitation is present. There is a trace or physiologic amount of tricuspid regurgitation Tricuspid regurgitation jet envelope not well defined to measure RV systolic pressure accurately. The aortic root is not well visualized but is probably normal size. The inferior vena cava appeared normal and decreased > 50% with respiration (RAP 5-10 mmHg) There is no pericardial effusion. MMode/2D Measurements & Calculations RVDd: 3.6 cm LVIDd: 5.8 cm FS: 42.7 % Ao root diam: 3.4 cm IVSd: 1.5 cm LVIDs: 3.3 cm EDV(Teich): 168.4 ml LVPWd: 1.5 cm ESV(Teich): 45.5 ml Ao root area: 8.9 cm2 EF(Teich): 73.0 % LA dimension: 4.3 cm Doppler Measurements & Calculations MV E max saúl: MV P1/2t max saúl: Ao V2 max: LV V1 max P.6 cm/sec 107.6 cm/sec 151.3 cm/sec 8.5 mmHg MV A max saúl: MV P1/2t: 91.2 msec Ao max PG: LV V1 max: 106.6 cm/sec 9.2 mmHg 145.6 cm/sec MV E/A: 1.0 MVA(P1/2t): 2.4 cm2 MV dec slope: 345.7 cm/sec2 PA V2 max: TR max saúl: 103.2 cm/sec 264.7 cm/sec PA max PG: TR max P.0 mmHg 4.3 mmHg Left Ventricle The left ventricle is grossly normal size. There is mild to moderate concentric left ventricular hypertrophy. The left ventricular ejection fraction is normal. Doppler measurements suggest pseudonormalized left ventricular relaxation, which is associated with grade II/IV or mild to moderate diastolic dysfunction. Wall motion cannot be accurately commented on, but no definite regional wall motion abnormalities noted. Right Ventricle The right ventricle is grossly normal size. There is normal right ventricular wall thickness. The right ventricular systolic function is normal. Atria The right atrium is normal in size. The left atrium is mildly dilated. Interarterial septum not well visualized and not well dopplered. Cannot comment on ASD/PFO presence. Mitral Valve The mitral valve leaflets are sclerotic, but show no functional abnormalities. There is no mitral valve stenosis. There is a trace amount of mitral regurgitation. Aortic Valve The aortic valve is grossly normal. There is no aortic valve stenosis. No aortic regurgitation is present. Tricuspid Valve The tricuspid valve is not well visualized, but is grossly normal. There is no tricuspid stenosis. There is a trace or physiologic amount of tricuspid regurgitation. Tricuspid regurgitation jet envelope not well defined to measure RV systolic pressure accurately. Pulmonic Valve The pulmonic valve is not well visualized. Great Vessels The aortic root is not well visualized but is probably normal size. The inferior vena cava appeared normal and decreased > 50% with respiration (RAP 5-10 mmHg). Effusions There is no pericardial effusion. : SHAYLEE LINDSAY > Genoveva Whalen
[2017-08-03] MEDS: CLONAZEPAM 1 MG TABLET PO SCH (22:04)
[2017-08-03] MEDS: ATORVASTATIN CALCIUM 20 MG TABLET PO SCH (22:04)
[2017-08-04] MEDS: ACETAMINOPHEN 325 MG TABLET PO PRN ×3 (05:41→17:26)
[2017-08-04] MEDS: LABETALOL HCL 200 MG TABLET PO SCH ×2 (05:42→13:59)
[2017-08-04] MEDS: HYDRALAZINE HCL 50 MG TABLET PO SCH ×2 (05:42→13:59)
[2017-08-04] MEDS: HEPARIN SOD (PORCINE) 5,000 UNIT/ML 1 ML SYRINGE SUBCUT SCH ×2 (05:42→13:59)
[2017-08-04 06:52] LABS: ANION GAP 6 (5-19); BLOOD UREA NITROGEN 49 mg/dL (7-20); CALCIUM 8.4 mg/dL (8.4-10.2); CARBON DIOXIDE 25 mmol/L (22-30); CHLORIDE 110 mmol/L (98-107); GLUCOSE 119 mg/dL (75-110); POTASSIUM 4.2 mmol/L (3.6-5.0); SODIUM 140.9 mmol/L (137-145)
[2017-08-04] MEDS: ASPIRIN 81 MG TABLET, ENT COATED PO SCH (09:00)
[2017-08-04] MEDS: NITROGLYCERIN 10 MG (0.4 MG/HR) PATCH.TD24 TD SCH (09:00)
[2017-08-04] MEDS: AMLODIPINE BESYLATE 10 MG TABLET PO SCH (09:01)
[2017-08-04] MEDS: DOCUSATE SODIUM 100 MG CAPSULE PO SCH (09:01)
[2017-08-04] MEDS: LISINOPRIL 10 MG TABLET PO SCH (09:01)
[2017-08-04] MEDS: GABAPENTIN 300 MG CAPSULE PO SCH ×3 (09:01→17:26)
[2017-08-04 16:35] VITALS: BP 136/72
[2017-08-05 07:04] LABS: ALDOSTERONE 2.8 ng/dL (0.0-30.0); ALDOSTERONE RENIN RATIO 2 7.7 (0.0-30.0); RENIN ACTIVITY 0.364 ng/mL/hr (0.167-5.380)
--- NOTE | 2017-08-05 15:16 | PDOC DISCHARGE SUMMARY ---
General - Admit/Disc Date/PCP Admission Date/Primary Care Provider: 07/31/17 02:47 Discharge Date: 08/04/17 - Discharge Diagnosis (1) Hypertensive urgency Is this a current diagnosis for this admission?: Yes (2) CKD (chronic kidney disease) stage 3, GFR 30-59 ml/min Is this a current diagnosis for this admission?: Yes (3) Morbid obesity Is this a current diagnosis for this admission?: Yes (4) Obstructive sleep apnea Is this a current diagnosis for this admission?: Yes - Additional Information Resuscitation Status: Full Code Discharge Diet: Cardiac Discharge Activity: Activity As Tolerated Prescriptions: Amlodipine Besylate [Norvasc 10 mg Tablet] 10 mg PO DAILY 30 Days #30 tablet Docusate Sodium [Colace Clear] 50 mg PO BID #60 capsule Labetalol HCl [Normodyne 200 mg Tablet] 400 mg PO Q8 30 Days #180 tablet Nitroglycerin [Nitro-Dur 10 mg (0.4MG/Hr) Transdermal Patch] 1 each TD DAILY 30 Days #30 patch.td24 Home Medications: Albuterol Sulfate [Proair HFA Inhalation Aerosol 8.5 gm MDI] 1 puff IH Q4HP PRN 07/31/17 Atorvastatin Calcium [Lipitor 80 mg Tablet] 80 mg PO DAILY 07/31/17 Colchicine [Colchicine 0.6 mg Tablet] 0.6 mg PO DAILY 07/31/17 Ferrous Sulfate [Feosol 325 mg Tablet] 325 mg PO DAILY 07/31/17 Fluticasone Propionate [Flonase Nasal Barling 50 Mcg/Barling 16 gm] 2 sprays NASL DAILY 07/31/17 Fluticasone/Vilanterol [Breo Ellipta 200-25 Mcg INH] 1 puff IH DAILY 07/31/17 Insulin Aspart [Novolog Flexpen] 25 unit SQ AC 07/31/17 Insulin Glargine,Hum.rec.anlog [Toujeo Solostar] 50 unit SQ QHS 07/31/17 Lisinopril [Prinivil 40 mg Tablet] 40 mg PO DAILY 07/31/17 Torsemide [Demadex 20 mg Tablet] 20 mg PO DAILY 07/31/17 Clonazepam [Klonopin 1 mg Tablet] 1 tab PO QHS 08/01/17 Cyanocobalamin (Vitamin B-12) [Vitamin B-12] 1,000 mcg PO DAILY 08/01/17 Cyclobenzaprine HCl 10 mg PO QPM 08/01/17 Ergocalciferol (Vitamin D2) [Vitamin D2] 50,000 unit PO ASDIR PRN 08/01/17 Hydralazine HCl 100 mg PO Q8 08/01/17 Hydrocodone/Acetaminophen [Hydrocodone-Acetamin 7.5-325] 1 each PO TID 08/01/17 Omeprazole 1 tab PO QHS 08/01/17 Potassium Chloride 20 meq PO ACSUPPER 08/01/17 Amlodipine Besylate [Norvasc 10 mg Tablet] 10 mg PO DAILY 30 Days #30 tablet Clonazepam [Klonopin 1 mg Tablet] 1 mg PO QHS tablet 08/04/17 Docusate Sodium [Colace Clear] 50 mg PO BID #60 capsule 08/04/17 Gabapentin [Neurontin 300 mg Capsule] 300 mg PO TID capsule 08/04/17 Hydralazine HCl [Apresoline 50 mg Tablet] 100 mg PO Q8 tablet 08/04/17 Labetalol HCl [Normodyne 200 mg Tablet] 400 mg PO Q8 30 Days #180 tablet Lisinopril [Prinivil 10 mg Tablet] 40 mg PO DAILY tablet 08/04/17 Nitroglycerin [Nitro-Dur 10 mg (0.4MG/Hr) Transdermal Patch] 1 each TD DAILY 30 Days #30 patch.td24 08/04/17 History of Present Illness History of Present Illness: CLARI TSAI JR is a 57 year old male with past medical history of obesity, obstructive sleep apnea, diabetes, anxiety, refractory hypertension and a recent MRI May 2017 showing 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 He also presented with marked elevation of his blood pressure into the 230s systolic. CT head negative for any acute intracranial bleed. He was started on a nicardipine drip and admitted for further treatment. Hospital Course Hospital Course: August 01 His headache improved. However, his blood pressure remained high. Some of his home medications were continued, including beta-acacia, diltiazem, lisinopril, and hydralazine. Torsemide was not continued. He was started on IV Lasix twice daily. In addition he was started on Spironolactone out of concern for hyperaldosteronism. Clonidine was also added. Feb 19 Because of bradycardia, labetalol and Cardizem was stopped. Amlodipine 10 mg daily was started. Aldosterone, and aldosterone/renin ratio - pending. Aug 03 No complaints today. Blood pressure still suboptimal. Echo showed grossly normal LV size and function. He had mild to moderate diastolic dysfunction. His valvular function was grossly normal. He did not have evidence of renal artery stenosis on the right. He is status post left nephrectomy. He was started on labetalol, but at a lower dose so as not to cause bradycardia. August 04 Blood pressure was 136/72. Physical Exam Vital Signs: Temp Pulse Resp BP Pulse Ox 98.0 F 60 18 142/99 H 96 08/04/17 10:57 08/04/17 14:00 08/04/17 10:57 08/04/17 10:57 08/04/17 10:57 Intake & Output 08/03/17 08/04/17 08/05/17 06:59 06:59 06:59 Intake Total 929 1852 737 Output Total 2425 2425 450 Balance -1496 -573 287 Weight 139.4 kg 138.4 kg General appearance: PRESENT: no acute distress, cooperative Head exam: PRESENT: atraumatic, normocephalic Eye exam: PRESENT: EOMI, PERRLA Respiratory exam: PRESENT: clear to auscultation octavia. ABSENT: rales, rhonchi, wheezes Cardiovascular exam: PRESENT: RRR. ABSENT: diastolic murmur, rubs, systolic murmur Musculoskeletal exam: PRESENT: ambulatory Neurological exam: PRESENT: alert, awake, oriented to person, oriented to place , oriented to time, oriented to situation, CN II-XII grossly intact. ABSENT: motor sensory deficit Psychiatric exam: PRESENT: appropriate affect, normal mood. ABSENT: homicidal ideation, suicidal ideation Results Laboratory Results: 08/03/17 04:25 08/04/17 04:58 08/04/17 04:58 Sodium 140.9 Potassium 4.2 Chloride 110 H Carbon Dioxide 25 Anion Gap 6 BUN 49 H Creatinine 2.97 H Est GFR ( Amer) 26 L Est GFR (Non-Af Amer) 22 L Glucose 119 H Calcium 8.4 07/31/17 07/31/17 07/31/17 08:12 08:12 14:15 Creatine Kinase 151 117 CK-MB (CK-2) 2.09 Troponin I 0.037 07/31/17 14:15 Creatine Kinase CK-MB (CK-2) 1.61 Troponin I 0.039 Impressions: Head CT 07/31/17 01:02 IMPRESSION: No acute findings. Limitation. Chest X-Ray 07/31/17 01:05 IMPRESSION: No acute cardiopulmonary findings. Renal Ultrasound 08/03/17 00:00 IMPRESSION: NO DOPPLER EVIDENCE OF HEMODYNAMICALLY SIGNIFICANT RIGHT RENAL ARTERY STENOSIS. Solid nodule 2 cm diameter right lower pole kidney not as well seen as on the prior MRI exam from 06/03/2017 Post left nephrectomy Vascular Ultrasound 08/03/17 00:00 IMPRESSION: NO DOPPLER EVIDENCE OF HEMODYNAMICALLY SIGNIFICANT RIGHT RENAL ARTERY STENOSIS. Solid nodule 2 cm diameter right lower pole kidney not as well seen as on the prior MRI exam from 06/03/2017 Post left nephrectomy Qualifiers - * PATEINT BEING DISCHARGED WITH ANY OF THE FOLLOWING DIAGNOSIS?: No Plan Time Spent: Greater than 30 Minutes - 35 minutes
== END 2017-08-04 17:44 | disposition home health service (06) | DRG 305 ==
LOC: ER 23:10 → EH 07-31 02:47 → 3W 07-31 19:58
PROVIDERS: ADMIT Internal Medicine; ATTEND Internal Medicine
PROC: 5A09457 Assistance with Respiratory Ventilation, 24-96 Consecutive Hours, Continuous Positive Airway Pressure (ICD-10-PCS; principal; 2017-07-31)
DX: I16.0 Hypertensive urgency (principal); Z68.41 Body mass index [BMI] 40.0-44.9, adult; I12.9 Hypertensive chronic kidney disease with stage 1 through stage 4 chronic kidney disease, or unspecified chronic kidney disease; E11.22 Type 2 diabetes mellitus with diabetic chronic kidney disease; N18.3 Chronic kidney disease, stage 3 (moderate); G47.33 Obstructive sleep apnea (adult) (pediatric); E78.5 Hyperlipidemia, unspecified; E11.9 Type 2 diabetes mellitus without complications; F41.9 Anxiety disorder, unspecified; E26.09 Other primary hyperaldosteronism; K21.9 Gastro-esophageal reflux disease without esophagitis; M13.849 Other specified arthritis, unspecified hand; Z79.4 Long term (current) use of insulin; Z82.49 Family history of ischemic heart disease and other diseases of the circulatory system; Z88.8 Allergy status to other drugs, medicaments and biological substances; Z90.5 Acquired absence of kidney; E66.01 Morbid (severe) obesity due to excess calories
CPT/HCPCS: 36415; 70450; 71045; 76770; 80048; 80053; 82088; 82533; 82550; 82553; 82962; 83036; 83690; 84244; 84443; 84484; 85025; 93005; 93010; 93306; 93976; 96365; 96375; 99291; J0360; J0780; J1644; J1815; J1940; J2060; J3490

== ENCOUNTER 2018-06-29 16:56 | Inpatient (IN) | payer BC, OTHER ==
[2018-06-29] MEDS ORDERED: AMLODIPINE BESYLATE 10 MG TABLET PO ONE (23:00)
--- NOTE | 2018-06-29 23:12 | ER Document Report ---
ED General - General Mode of Arrival: Ambulatory Information source: Patient TRAVEL OUTSIDE OF THE [place] IN LAST 30 DAYS: No <MARTIN SAN - Last Filed: 06/30/18 04:31> <PATRIA WALLACE - Last Filed: 06/30/18 06:42> - General Chief Complaint: Abdominal Pain Stated Complaint: FLANK PAIN Time Seen by Provider: 06/29/18 22:40 Notes: Patient is a 58-year-old male with hypertension, hyperlipidemia, diabetes, restless leg syndrome presents emergency department complaining of multiple symptoms including diarrhea,, productive cough, and decreased appetite. Patient states that he has had the symptoms for approximately 2 months but they have been worsening. Patient also states that he has lost approximately 80 pounds, unintentionally, within the last year. He states today he also developed left abdominal pain that radiated into his lower back. He reports he went to a clinic and had blood work performed. He states was told he was in acute renal failure and was directed to come to the emergency department. (MARTIN SAN) - Related Data Allergies/Adverse Reactions: povidone-iodine [From Betadine] Allergy (Severe, Verified 06/03/17 13:23) Generalized rash Soap [From Betadine] Allergy (Severe, Verified 06/03/17 13:23) Generalized rash Past Medical History - General Information source: Patient - Social History Smoking Status: Never Smoker Drug Abuse: None Family History: CAD Patient has suicidal ideation: No Patient has homicidal ideation: No - Past Medical History Cardiac Medical History: Reports: Hx Hypercholesterolemia, Hx Hypertension Pulmonary Medical History: Reports: Hx Asthma - no episodes in "quite awhile", Hx COPD Endocrine Medical History: Reports: Hx Diabetes Mellitus Type 2 Renal/ Medical History: Reports: Hx Kidney Stones - kidney disease GI Medical History: Reports: Hx Gastroesophageal Reflux Disease Musculoskeletal Medical History: Reports Hx Arthritis - hands Psychiatric Medical History: Reports: Hx Depression Past Surgical History: Reports: Hx Kidney (Renal Surgery) - 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 - Immunizations Immunizations up to date: Yes Hx Diphtheria, Pertussis, Tetanus Vaccination: Yes <MARTIN SAN - Last Filed: 06/30/18 04:31> Review of Systems - Review of Systems Constitutional: See HPI EENT: No symptoms reported Cardiovascular: No symptoms reported Respiratory: See HPI, Cough, Sputum Gastrointestinal: See HPI Genitourinary: No symptoms reported Male Genitourinary: No symptoms reported Musculoskeletal: No symptoms reported Skin: No symptoms reported Hematologic/Lymphatic: No symptoms reported Neurological/Psychological: No symptoms reported -: Yes All other systems reviewed and negative <MARTIN SAN - Last Filed: 06/30/18 04:31> Physical Exam <MARTIN SAN - Last Filed: 06/30/18 04:31> - Vital signs Vitals: Temp Pulse Resp BP Pulse Ox 97.6 F 70 18 201/89 H 100 06/29/18 17:25 06/29/18 17:25 06/29/18 17:25 06/29/18 17:25 06/29/18 17:25 - Notes Notes: GENERAL: Alert, interacts well. No acute distress. HEAD: Normocephalic, atraumatic. EYES: Pupils equal, round, and reactive to light. Extraocular movements intact. ENT: Oral mucosa moist, tongue midline. NECK: Full range of motion. Supple. Trachea midline. LUNGS: Clear to auscultation bilaterally, no wheezes, rales, or rhonchi. No respiratory distress. HEART: Regular rate and rhythm. No murmurs, gallops, or rubs. ABDOMEN: Soft, obese, non-tender. Non-distended. Bowel sounds present in all 4 quadrants. EXTREMITIES: Moves all 4 extremities spontaneously. NEUROLOGICAL: Alert and oriented x3. Normal speech. PSYCH: Normal affect, normal mood. SKIN: Warm, dry, normal turgor. No rashes or lesions noted. (MENAMARTIN HAZEL) Course <MUKESHTRACYPATRIA - Last Filed: 06/30/18 06:42> - Re-evaluation Re-evalutation: 06/29/18 23:22 Reviewing labs and imaging from earlier today the [facility] shows anemia with a hemoglobin of 11.5, chemistries show a BUN of 51 which is minimally changed from last one approximately 1 year ago which was 49 creatinine is significantly elevated at 3.66 compared to a year ago where it was 2.97. CT scan of the abdomen pelvis does show a 25 mm slightly hyperdense solid nodule in the lower pole of the right kidney, does not appear significantly enlarged since the earlier study but this is concerning for neoplasm. 06/29/18 23:[address] Sarabjit, given the fact that the patient only has one kidney, that he has elevated creatinine and that his blood pressure is 201/89 this is concerning for hypertensive urgency. Patient will be admitted for hypertensive urgency. (PATRIA WALLACE) - Vital Signs Vital signs: Temp Pulse Resp BP Pulse Ox 98.2 F 84 19 165/86 H 100 06/30/18 02:17 06/30/18 02:17 06/30/18 02:17 06/30/18 02:17 06/30/18 02:17 Discharge <MARTIN SAN - Last Filed: 06/30/18 04:31> - Discharge Admitting Provider: [facility] Admitted: Telemetry <PATRIA WALLACE - Last Filed: 06/30/18 06:42> - Discharge Clinical Impression: Hypertensive urgency, CKD (chronic kidney disease) stage 4, GFR 15-29 ml/min, Morbid obesity Diabetes Qualifiers: Diabetes mellitus type: type 2 Diabetes mellitus skilled nursing insulin use: with skilled nursing use Diabetes mellitus complication status: with kidney complications Diabetes mellitus complication detail: with chronic kidney disease Chronic kidney disease stage: stage 4 (severe) Qualified Code(s): E11.22 - Type 2 diabetes mellitus with diabetic chronic kidney disease Condition: Good Disposition: ADMITTED INPATIENT Scribe Attestation: 06/30/18 06:42 I personally performed the services described in the documentation, reviewed and edited the documentation which was dictated to the scribe in my presence, and it accurately records my words and actions. (PATRIA WALLACE) Scribe Documentation - Scribe Written by Georginae:: Lidia Casillas, 06/29/2018 23:34 acting as scribe for :: Briseyda <MARTIN SAN - Last Filed: 06/30/18 04:31>
[2018-06-29] MEDS ORDERED: IPRATROPIUM/ALBUTEROL 0.5-2.5 MG/3 ML AMPUL NEB PRN (23:22)
[2018-06-29] MEDS ORDERED: HYDRALAZINE HCL INJ/PF 20 MG/1 ML SDV IV PRN (23:22)
[2018-06-29] MEDS ORDERED: HYDRALAZINE HCL INJ/PF 20 MG/1 ML SDV IV ONE (23:24)
[2018-06-29] MEDS ORDERED: CLONAZEPAM 1 MG TABLET PO ONE (23:45)
[2018-06-29] MEDS ORDERED: HYDRALAZINE HCL 50 MG TABLET PO ONE (23:45)
--- NOTE | 2018-06-30 05:26 | PDOC H&P ---
History of Present Illness Admission Date/PCP: 06/29/18 23:33 Patient complains of: Flank pain History of Present Illness: CLARI TSAI JR is a 58 year old male with an extensive past medical history of a kidney donor and subsequent single kidney, chronic renal failure, 2.5 cm mass in the remaining right kidney by MRI of May 2017, hypertension, diabetes, anxiety and obstructive sleep apnea. He presents with abnormal labs of worsening renal failure in addition to unintentional weight loss of approximately 80 pounds over the last 12 months, in addition to intermittent left-sided abdominal pain. In the emergency room he is found to have hypertensive urgency, anemia, acute on chronic renal failure. He is referred to the hospitalist for admission. Patient is very difficult to focus on single complaint as he has a myriad of vague multisystem complaints. He is unable to tell me his medication regiment Past Medical History Cardiac Medical History: Reports: Hyperlipidema, Hypertension Denies: Coronary Artery Disease, Myocardial Infarction Pulmonary Medical History: Reports: Asthma - no episodes in "quite awhile", Chronic Obstructive Pulmonary Disease (COPD) Denies: Bronchitis, Pneumonia Neurological Medical History: Denies: Seizures Endocrine Medical History: Reports: Diabetes Mellitus Type 2 GI Medical History: Reports: Gastroesophageal Reflux Disease Musculoskeltal Medical History: Reports: Arthritis - hands Psychiatric Medical History: Reports: Depression Hematology: Denies: Anemia Past Surgical History Past Surgical History: Reports: Other - Nephrectomy Social History Information Source: Patient, [facility] Records Smoking Status: Never Smoker Frequency of Alcohol Use: None Hx Recreational Drug Use: No Drugs: None Hx Prescription Drug Abuse: No - Advance Directive Resuscitation Status: Full Code Family History Family History: CAD, Other - Renal failure Parental Family History Reviewed: Yes Children Family History Reviewed: Yes Sibling(s) Family History Reviewed.: Yes Medication/Allergy Home Medications: Albuterol Sulfate [Proair HFA Inhalation Aerosol 8.5 gm MDI] 1 puff IH Q4HP PRN 07/31/17 Atorvastatin Calcium [Lipitor 80 mg Tablet] 80 mg PO DAILY 07/31/17 Colchicine [Colchicine 0.6 mg Tablet] 0.6 mg PO DAILY 07/31/17 Ferrous Sulfate [Feosol 325 mg Tablet] 325 mg PO DAILY 07/31/17 Fluticasone Propionate [Flonase Nasal Clay 50 Mcg/Clay 16 gm] 2 sprays NASL DAILY 07/31/17 Fluticasone/Vilanterol [Breo Ellipta 200-25 Mcg INH] 1 puff IH DAILY 07/31/17 Insulin Aspart [Novolog Flexpen] 25 unit SQ AC 07/31/17 Insulin Glargine,Hum.rec.anlog [Toujeo Solostar] 50 unit SQ QHS 07/31/17 Lisinopril [Prinivil 40 mg Tablet] 40 mg PO DAILY 07/31/17 Torsemide [Demadex 20 mg Tablet] 20 mg PO DAILY 07/31/17 Clonazepam [Klonopin 1 mg Tablet] 1 tab PO QHS 08/01/17 Cyanocobalamin (Vitamin B-12) [Vitamin B-12] 1,000 mcg PO DAILY 08/01/17 Cyclobenzaprine HCl 10 mg PO QPM 08/01/17 Ergocalciferol (Vitamin D2) [Vitamin D2] 50,000 unit PO ASDIR PRN 08/01/17 Hydralazine HCl 100 mg PO Q8 08/01/17 Hydrocodone/Acetaminophen [Hydrocodone-Acetamin 7.5-325] 1 each PO TID 08/01/17 Omeprazole 1 tab PO QHS 08/01/17 Potassium Chloride 20 meq PO ACSUPPER 08/01/17 Amlodipine Besylate [Norvasc 10 mg Tablet] 10 mg PO DAILY 30 Days #30 tablet 08/04/17 Clonazepam [Klonopin 1 mg Tablet] 1 mg PO QHS tablet 08/04/17 Docusate Sodium [Colace Clear] 50 mg PO BID #60 capsule 08/04/17 Gabapentin [Neurontin 300 mg Capsule] 300 mg PO TID capsule 08/04/17 Hydralazine HCl [Apresoline 50 mg Tablet] 100 mg PO Q8 tablet 08/04/17 Labetalol HCl [Normodyne 200 mg Tablet] 400 mg PO Q8 30 Days #180 tablet 08/04 Lisinopril [Prinivil 10 mg Tablet] 40 mg PO DAILY tablet 08/04/17 Nitroglycerin [Nitro-Dur 10 mg (0.4MG/Hr) Transdermal Patch] 1 each TD DAILY 30 Days #30 patch.td24 08/04/17 Allergies/Adverse Reactions: povidone-iodine [From Betadine] Allergy (Severe, Verified 06/03/17 13:23) Generalized rash Soap [From Betadine] Allergy (Severe, Verified 06/03/17 13:23) Generalized rash Review of Systems ROS unobtainable: Other - Answers affirmatively to all questions and subsequently felt unreliable Physical Exam Vital Signs: Temp Pulse Resp BP Pulse Ox 98.2 F 84 19 165/86 H 100 06/30/18 02:17 06/30/18 02:17 06/30/18 02:17 06/30/18 02:17 06/30/18 02:17 Intake & Output 06/28/18 06/29/18 06/30/18 11:59 11:59 11:59 Weight 124.8 kg General appearance: PRESENT: cooperative, mild distress, obese Head exam: PRESENT: atraumatic, normocephalic Eye exam: PRESENT: conjunctiva pink, EOMI, PERRLA. ABSENT: scleral icterus Ear exam: PRESENT: normal external ear exam Mouth exam: PRESENT: moist, tongue midline Neck exam: ABSENT: carotid bruit, JVD, lymphadenopathy, thyromegaly Respiratory exam: PRESENT: clear to auscultation octavia. ABSENT: rales, rhonchi, wheezes Cardiovascular exam: PRESENT: RRR. ABSENT: diastolic murmur, rubs, systolic murmur Pulses: PRESENT: normal dorsalis pedis pul Vascular exam: PRESENT: normal capillary refill GI/Abdominal exam: PRESENT: hyperactive bowel sounds, normal bowel sounds, soft. ABSENT: distended, guarding, mass, organolmegaly, rebound, tenderness Rectal exam: PRESENT: deferred Extremities exam: PRESENT: full ROM. ABSENT: calf tenderness, clubbing, pedal edema Neurological exam: PRESENT: alert, awake, oriented to person, oriented to place, oriented to time, oriented to situation, CN II-XII grossly intact. ABSENT: motor sensory deficit Psychiatric exam: PRESENT: anxious. ABSENT: appropriate affect Skin exam: PRESENT: dry, intact, warm. ABSENT: cyanosis, rash Assessment & Plan - Diagnosis (1) Anemia Is this a current diagnosis for this admission?: Yes Plan: Chronic kidney disease versus iron deficiency, follow-up anemia workup. (2) CKD (chronic kidney disease) stage 4, GFR 15-29 ml/min Is this a current diagnosis for this admission?: Yes Plan: Likely secondary to uncontrolled hypertension, diabetes, complicated by unclear compliance and single kidney. Optimize blood pressure, nephrology consulted. (3) Diabetes Qualifiers: Diabetes mellitus type: type 2 Diabetes mellitus [facility] insulin use: with [facility] use Diabetes mellitus complication status: with kidney complications Diabetes mellitus complication detail: with chronic kidney disease Chronic kidney disease stage: stage 4 (severe) Qualified Code(s): E11.22 - Type 2 diabetes mellitus with diabetic chronic kidney disease; N18.4 - Chronic kidney disease, stage 4 (severe); Z79.4 - assisted (current) use of insulin Is this a current diagnosis for this admission?: Yes Plan: Humalog sliding scale, follow-up A1c (4) Hypertensive urgency Is this a current diagnosis for this admission?: Yes Plan: IV hydralazine, resumption of outpatient labetalol, lisinopril and Norvasc (5) Obstructive sleep apnea Is this a current diagnosis for this admission?: Yes Plan: BiPAP ordered - Time Time Spent: 50 to 70 Minutes - Inpatient Certification Medical Necessity: Need Close Monitoring Due to Risk of Patient Decompensation
[2018-06-30] MEDS: HEPARIN SOD (PORCINE) 5,000 UNIT/ML 1 ML SYRINGE SUBCUT SCH ×3 (06:37→21:13)
[2018-06-30] MEDS: LABETALOL HCL 200 MG TABLET PO SCH ×3 (06:38→21:12)
[2018-06-30] MEDS: HYDRALAZINE HCL 50 MG TABLET PO SCH ×3 (06:39→21:11)
[2018-06-30 06:47] LABS: ABSOLUTE BASOPHILS # (AUTO) 0.1 10^3/uL (0.0-0.2); ABSOLUTE EOSINOPHILS # (AUTO) 0.3 10^3/uL (0.0-0.6); ABSOLUTE MONOCYTES (AUTO) 0.7 10^3/uL (0.1-1.4); ABSOLUTE NEUT (AUTO) 6.8 10^3/uL (1.7-8.2); BASOPHILS % (AUTO) 0.7 % (0-2); HEMATOCRIT 30.4 % (37.9-51.0); HEMOGLOBIN 10.6 g/dL (13.5-17.0); LYMPHOCYTES % (AUTO) 27.6 % (13-45); MEAN CORPUSCULAR HEMOGLOBIN 32.2 pg (27.0-33.4); MEAN CORPUSCULAR HGB CONC 34.8 g/dL (32.0-36.0); MEAN CORPUSCULAR VOLUME 93 fl (80-97); MONOCYTES % (AUTO) 6.5 % (3-13); PLATELET COUNT 183 10^3/uL (150-450); RED BLOOD COUNT 3.29 10^6/uL (4.35-5.55); RED CELL DISTRIBUTION WIDTH 13.7 % (11.5-14.0); SEGMENTED NEUTROPHILS % (AUTO) 62.2 % (42-78); TOTAL CELLS COUNTED % (AUTO) 100 %; WHITE BLOOD COUNT 10.9 10^3/uL (4.0-10.5)
[2018-06-30 06:56] LABS: ABSOLUTE RETICS # 0.045 10^6/uL (0.028-0.122); RETICULOCYTE COUNT (AUTO) 1.38 % (0.66-2.85)
[2018-06-30 07:04] LABS: IRON(TIBC) 30.7 ug/dL (49-181)
[2018-06-30 07:09] LABS: ANION GAP 6 (5-19); BLOOD UREA NITROGEN 55 mg/dL (7-20); CALCIUM 8.5 mg/dL (8.4-10.2); CARBON DIOXIDE 22 mmol/L (22-30); CHLORIDE 112 mmol/L (98-107); GLUCOSE 137 mg/dL (75-110); POTASSIUM 4.1 mmol/L (3.6-5.0); SODIUM 139.5 mmol/L (137-145)
[2018-06-30] MEDS: ACETAMINOPHEN 325 MG TABLET PO PRN (08:21)
--- NOTE | 2018-06-30 08:39 | PDOC CONSULTATION ---
Consultation Consult Date: 06/30/18 Consult reason:: Hematology/Oncology consultation was requested for patient with kidney mass and anemia. History of Present Illness Admission Date/PCP: 06/29/18 23:33 History of Present Illness: CLARI TSAI JR is a 58 year old male who was found to have a mass on his right kidney in 2017. However, due to lack of funds, he was never able to fully follow-up for this. He states that over the last 3 months, he has had increased abdominal pain, nausea, vomiting and diarrhea. He was evaluated at an outpatient clinic and was told that his kidney is failing. He underwent EGD and colonoscopy about 2 years ago. However, he is not able to remember much more than this. Currently, he is complaining of a headache. He has lost weight, unintentionally. Past Medical History Cardiac Medical History: Reports: Hyperlipidema, Hypertension Denies: Coronary Artery Disease, Myocardial Infarction Pulmonary Medical History: Reports: Asthma - no episodes in "quite awhile", Chronic Obstructive Pulmonary Disease (COPD) Denies: Bronchitis, Pneumonia Neurological Medical History: Denies: Seizures Endocrine Medical History: Reports: Diabetes Mellitus Type 2 GI Medical History: Reports: Gastroesophageal Reflux Disease Musculoskeltal Medical History: Reports: Arthritis - hands Psychiatric Medical History: Reports: Depression Hematology: Denies: Anemia Past Surgical History Past Surgical History: Reports: Other - Nephrectomy Social History Occupation: [employer]. But currently is not working. He has 3 living children. Smoking Status: Never Smoker Frequency of Alcohol Use: None Hx Recreational Drug Use: No Drugs: None Hx Prescription Drug Abuse: No - Advance Directive Resuscitation Status: Full Code Family History Family History: CAD, Other - Renal failure Parental Family History Reviewed: Yes - Father of acute [place] age 51. Children Family History Reviewed: No Sibling(s) Family History Reviewed.: Yes - He donated his kidney to his sister 25 years ago. Medication/Allergy Home Medications: Albuterol Sulfate [Proair HFA Inhalation Aerosol 8.5 gm MDI] 1 puff IH Q4HP PRN 07/31/17 Atorvastatin Calcium [Lipitor 80 mg Tablet] 80 mg PO DAILY 07/31/17 Colchicine [Colchicine 0.6 mg Tablet] 0.6 mg PO DAILY 07/31/17 Ferrous Sulfate [Feosol 325 mg Tablet] 325 mg PO DAILY 07/31/17 Fluticasone Propionate [Flonase Nasal [place] 50 Mcg/[place] 16 gm] 2 sprays NASL DAILY 07/31/17 Fluticasone/Vilanterol [Breo Ellipta 200-25 Mcg INH] 1 puff IH DAILY 07/31/17 Insulin Aspart [Novolog Flexpen] 25 unit SQ AC 07/31/17 Insulin Glargine,Hum.rec.anlog [Toujeo Solostar] 50 unit SQ QHS 07/31/17 Lisinopril [Prinivil 40 mg Tablet] 40 mg PO DAILY 07/31/17 Torsemide [Demadex 20 mg Tablet] 20 mg PO DAILY 07/31/17 Clonazepam [Klonopin 1 mg Tablet] 1 tab PO QHS 08/01/17 Cyanocobalamin (Vitamin B-12) [Vitamin B-12] 1,000 mcg PO DAILY 08/01/17 Cyclobenzaprine HCl 10 mg PO QPM 08/01/17 Ergocalciferol (Vitamin D2) [Vitamin D2] 50,000 unit PO ASDIR PRN 08/01/17 Hydralazine HCl 100 mg PO Q8 08/01/17 Hydrocodone/Acetaminophen [Hydrocodone-Acetamin 7.5-325] 1 each PO TID 08/01/17 Omeprazole 1 tab PO QHS 08/01/17 Potassium Chloride 20 meq PO ACSUPPER 08/01/17 Amlodipine Besylate [Norvasc 10 mg Tablet] 10 mg PO DAILY 30 Days #30 tablet 08/04/17 Clonazepam [Klonopin 1 mg Tablet] 1 mg PO QHS tablet 08/04/17 Docusate Sodium [Colace Clear] 50 mg PO BID #60 capsule 08/04/17 Gabapentin [Neurontin 300 mg Capsule] 300 mg PO TID capsule 08/04/17 Hydralazine HCl [Apresoline 50 mg Tablet] 100 mg PO Q8 tablet 08/04/17 Labetalol HCl [Normodyne 200 mg Tablet] 400 mg PO Q8 30 Days #180 tablet 08/04/17 Lisinopril [Prinivil 10 mg Tablet] 40 mg PO DAILY tablet 08/04/17 Nitroglycerin [Nitro-Dur 10 mg (0.4MG/Hr) Transdermal Patch] 1 each TD DAILY 30 Days #30 patch.[id number] 08/04/17 Allergies/Adverse Reactions: povidone-iodine [From Betadine] Allergy (Severe, Verified 06/03/17 13:23) Generalized rash Soap [From Betadine] Allergy (Severe, Verified 06/03/17 13:23) Generalized rash Review of Systems Constitutional: PRESENT: headache(s). ABSENT: fever(s) Eyes: ABSENT: visual disturbances Ears: ABSENT: hearing changes Nose, Mouth, and Throat: ABSENT: sore throat Cardiovascular: ABSENT: chest pain Respiratory: ABSENT: dyspnea Gastrointestinal: PRESENT: abdominal pain, diarrhea, heartburn, nausea, vomiting Genitourinary: ABSENT: dysuria Musculoskeletal: ABSENT: back pain, muscle weakness Integumentary: ABSENT: rash Neurological: PRESENT: memory loss Physical Exam Vital Signs: Temp Pulse Resp BP Pulse Ox 98.2 F 75 16 165/86 H 97 06/30/18 02:17 06/30/18 08:19 06/30/18 08:19 06/30/18 02:17 06/30/18 08:19 Intake & Output 06/29/18 06/30/18 07/01/18 06:59 06:59 06:59 Intake Total 336 Output Total 100 Balance 236 Weight 124.8 kg General appearance: PRESENT: obese, well-developed Head exam: PRESENT: normocephalic Eye exam: PRESENT: EOMI Mouth exam: PRESENT: tongue midline Neck exam: ABSENT: lymphadenopathy, tenderness Respiratory exam: PRESENT: clear to auscultation octavia, unlabored Cardiovascular exam: PRESENT: RRR GI/Abdominal exam: PRESENT: soft. ABSENT: organolmegaly, tenderness Extremities exam: ABSENT: pedal edema Neurological exam: PRESENT: alert, awake, other - Poor memory Psychiatric exam: PRESENT: appropriate affect Skin exam: PRESENT: normal color Results Laboratory Results: 06/30/18 05:40 06/30/18 05:40 06/30/18 06/30/18 06/30/18 05:40 05:40 05:40 WBC 10.9 H RBC 3.29 L Hgb 10.6 L Hct 30.4 L MCV 93 MCH 32.2 MCHC 34.8 RDW 13.7 Plt Count 183 Seg Neutrophils % 62.2 Lymphocytes % 27.6 Monocytes % 6.5 Eosinophils % 3.0 Basophils % 0.7 Absolute Neutrophils 6.8 Absolute Lymphocytes 3.0 Absolute Monocytes 0.7 Absolute Eosinophils 0.3 Absolute Basophils 0.1 Retic Count (auto) 1.38 Absolute Retic 0.045 Sodium 139.5 Potassium 4.1 Chloride 112 H Carbon Dioxide 22 Anion Gap 6 BUN 55 H Creatinine 3.46 H Est GFR ( Amer) 22 L Est GFR (Non-Af Amer) 18 L Glucose 137 H Calcium 8.5 Iron TIBC % Saturation Ferritin Vitamin B12 Folate 06/30/18 05:40 WBC RBC Hgb Hct MCV MCH MCHC RDW Plt Count Seg Neutrophils % Lymphocytes % Monocytes % Eosinophils % Basophils % Absolute Neutrophils Absolute Lymphocytes Absolute Monocytes Absolute Eosinophils Absolute Basophils Retic Count (auto) Absolute Retic Sodium Potassium Chloride Carbon Dioxide Anion Gap BUN Creatinine Est GFR ( Amer) Est GFR (Non-Af Amer) Glucose Calcium Iron 30.7 L TIBC 205 L % Saturation 15 Ferritin 91.60 Vitamin B12 916.0 Folate 10.40 Status: Image reviewed by me Assessment & Plan - Diagnosis (1) Renal mass Is this a current diagnosis for this admission?: Yes Plan: According to radiology, this mass has not significantly changed since 2016. It remains 2.5 cm. Further follow-up with imaging is recommended. He should follow with urology if possible. Although biopsy/resection of this lesion has been recommended in the past, patient has been unable to see urology for this. I am reassured by the fact that it is not growing, but still concerned that it may be a malignancy. (2) Anemia Qualifiers: Chronic kidney disease stage: stage 4 (severe) Is this a current diagnosis for this admission?: Yes Plan: Patient may benefit from erythropoetin. There is no evidence of iron, B12, or folate deficiency. No indication for blood transfusion at this time. (3) CKD (chronic kidney disease) stage 4, GFR 15-29 ml/min Is this a current diagnosis for this admission?: Yes Plan: Dr. Corey following. - Plan Summary Plan Summary: I will be happy to follow him with you. Please call with any questions. Dr. Wilson will be covering until Wednesday.
[2018-06-30] MEDS: DOCUSATE SODIUM 100 MG CAPSULE PO SCH ×2 (10:20→17:45)
[2018-06-30] MEDS: GABAPENTIN 300 MG CAPSULE PO SCH ×2 (10:20→14:50)
[2018-06-30] MEDS: AMLODIPINE BESYLATE 10 MG TABLET PO SCH (10:20)
[2018-06-30] MEDS: FERROUS SULFATE 325 MG TABLET PO SCH (10:21)
--- NOTE | 2018-06-30 13:08 | PDOC CONSULTATION ---
Consultation Consult Date: 06/30/18 Attending physician:: SHAYLEE LINDSAY Consult reason:: I was asked to see the patient because of worsening kidney function the patient with baseline chronic kidney disease. 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 Patient said that yesterday he underwent CT scan of the abdomen and some blood tests ordered by community care in clinic and then proceeded to see the doctor there. Due to the abnormal labs he was advised to go to the emergency room. He denies any new acute symptoms otherwise. However he does have chronic intermittent symptoms including cough with mucus in the morning, diarrhea which is chronic, dizziness, intermittent abdominal pain involving the upper abdomen, intermittent nausea and vomiting, decreased appetite and unintentional about weight 80 pound weight loss for the past year. He denies any fever, chills, chest pains, shortness of breath currently but experiences it occasionally, gross hematuria, nor note of any foamy urine. He denies any other urination complaints. He feels fatigued sometimes. Presentation he was noted to have elevated blood pressure of 165/86 which is actually not too bad compared to blood pressures they have seen in the past when I was seeing him. He also had elevated BUN of 51 and creatinine of 3.66 with estimated GFR of 17. A CT scan of the abdomen that was done yesterday still showed a 25 mm solid nodule which was unchanged compared to previous imaging study. I have last seen the patient on June 28, 2017. During that time he left his last BUN was 25, creatinine of 2.53 and estimated GFR of 26 done on 06/03/2017. In [address] scan showing 2.5 cm inferior pole heterogeneous mass in the right kidney I referred him to a urologist Dr. Garcia and oncologist Dr. Morales. They recommended further workup however due to financial constraints patient was unable to follow through. He was also unable to follow up with me even since June 2017. He said he has been getting his prescriptions from Dr. Williamson and most recently started seeing [facility] due to lack of insurance. 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 GI Medical History: Reports: Gastroesophageal Reflux Disease Musculoskeltal Medical History: Reports: Arthritis - hands, Gout Skin Medical History: Reports: Eczema Psychiatric Medical History: Reports: Depression Hematology Medical History: Reports Anemia of Chronic Kidney Disease Past Surgical History Past Surgical History: Reports: Appendectomy, Nephrectomy - Left donated to his sister, Tonsillectomy, Other - bilateral cataract extraction with insertion of lens Social History Information Source: Patient Smoking Status: Never Smoker Frequency of Alcohol Use: None Hx Recreational Drug Use: No Drugs: None Hx Prescription Drug Abuse: No - Advance Directive Resuscitation Status: Full Code Family History Family History: CAD - Father, DM - Sister and maternal grandfather, End Stage Renal Disease - Sister, Hypertension - mother, Malignancy - Breast cancer in his mother, Other - Asthma in his mother Parental Family History Reviewed: Yes Children Family History Reviewed: Yes Sibling(s) Family History Reviewed.: Yes Medication/Allergy Home Medications: Allopurinol [Zyloprim 300 mg Tablet] 300 mg PO DAILY 06/30/18 Atorvastatin Calcium [Lipitor 80 mg Tablet] 80 mg PO QPM 06/30/18 Clonazepam [Klonopin 1 mg Tablet] 1 mg PO QHS 06/30/18 Cyclobenzaprine HCl [Flexeril 10 mg Tablet] 10 mg PO QHS 06/30/18 Ergocalciferol (Vitamin D2) [Drisdol 50,000 unit (1.25MG) Capsule] 50,000 unit PO [id number] 06/30/18 Ferrous Sulfate [Feosol 325 mg Tablet] 325 mg PO DAILY 06/30/18 Hydralazine HCl 100 mg PO Q8 06/30/18 Hydrocodone/Acetaminophen [[place] 7.5-325 mg Tablet] 1 tab PO Q8 06/30/18 Insulin Aspart [Novolog Flexpen] 25 unit SUBCUT AC 06/30/18 Insulin Glargine,Hum.rec.anlog [Toujeo Solostar] 50 units SUBCUT QHS 06/30/18 Labetalol HCl [Normodyne 200 mg Tablet] 100 mg PO QID 06/30/18 Lisinopril [Prinivil 40 mg Tablet] 40 mg PO QAM 06/30/18 Omeprazole 40 mg PO QHS 06/30/18 Potassium Chloride [Klor-Con M20] 20 meq PO ACSUPPER 06/30/18 Torsemide [Demadex 20 mg Tablet] 20 mg PO DAILY 06/30/18 Allergies/Adverse Reactions: povidone-iodine [From Betadine] Allergy (Severe, Verified 06/03/17 13:23) Generalized rash Soap [From Betadine] Allergy (Severe, Verified 06/03/17 13:23) Generalized rash Review of Systems All systems: reviewed and no additional remarkable complaints except as stated Review of Systems: Constitutional: ABSENT: chills, fatigue, fever(s), headache(s), weight gain, admits 80 pound weight loss Eyes: ABSENT: visual disturbances Ears: ABSENT: hearing changes Cardiovascular: ABSENT: chest pain, dyspnea on exertion, edema, orthropnea, palpitations; admits occasional shortness of breath Respiratory: ABSENT: cough, dyspnea, hemoptysis Gastrointestinal: ABSENT: Constipation, hematemesis, hematochezia; admits intermittent abdominal pain, nausea, and vomiting Genitourinary: ABSENT: dysuria, hematuria Musculoskeletal: ABSENT: joint swelling Integumentary: ABSENT: rash, wounds Neurological: ABSENT: abnormal gait, abnormal speech, confusion, dizziness, focal weakness, numbness, syncope Psychiatric: ABSENT: anxiety, depression Endocrine: ABSENT: cold intolerance, heat intolerance, polydipsia, polyuria Hematologic/Lymphatic: ABSENT: easy bleeding, easy bruising, lymphadenopathy Physical Exam Vital Signs: Temp Pulse Resp BP Pulse Ox 98.1 F 64 20 154/82 H 99 06/30/18 11:23 06/30/18 11:23 06/30/18 11:23 06/30/18 11:23 06/30/18 11:23 Intake & Output 06/29/18 06/30/18 07/01/18 06:59 06:59 06:59 Intake Total 336 Output Total 100 Balance 236 Weight 124.8 kg Exam: General appearance: No acute distress, cooperative, well-developed, well-nou rished Head exam: PRESENT: atraumatic, normocephalic Eye exam: PRESENT: Conjunctiva slightly pale, EOMI, PERRLA. ABSENT: conjunctival injection, scleral icterus Mouth exam: PRESENT: moist, neck supple, tongue midline Neck exam: PRESENT: full ROM. ABSENT: carotid bruit, JVD, lymphadenopathy, thyromegaly Respiratory exam: PRESENT: clear to auscultation bilaterally. ABSENT: rales, rhonchi, stridor, wheezes Cardiovascular exam: PRESENT: RRR, +S1, +S2. ABSENT: systolic murmur Pulses: PRESENT: normal radial pulses, normal dorsalis pedis pulses GI/Abdominal exam: PRESENT: normal bowel sounds, soft. ABSENT: guarding, mass, tenderness Rectal exam: Deferred Extremities exam: PRESENT: full ROM. ABSENT: calf tenderness, pedal edema Musculoskeletal: PRESENT: full ROM. ABSENT: deformity Neurological exam: PRESENT: alert, Awake, Oriented to person, Oriented to place, Oriented to time, reflexes normal, CN II-XII grossly intact. ABSENT: motor sensory deficit Psychiatric exam: PRESENT: appropriate affect, normal mood. ABSENT: homicidal ideation, suicidal ideation Skin exam: PRESENT: intact, dry, warm. ABSENT: rash Results Laboratory Results: 06/30/18 05:40 06/30/18 05:40 06/30/18 06/30/18 06/30/18 05:40 05:40 05:40 WBC 10.9 H RBC 3.29 L Hgb 10.6 L Hct 30.4 L MCV 93 MCH 32.2 MCHC 34.8 RDW 13.7 Plt Count 183 Seg Neutrophils % 62.2 Lymphocytes % 27.6 Monocytes % 6.5 Eosinophils % 3.0 Basophils % 0.7 Absolute Neutrophils 6.8 Absolute Lymphocytes 3.0 Absolute Monocytes 0.7 Absolute Eosinophils 0.3 Absolute Basophils 0.1 Retic Count (auto) 1.38 Absolute Retic 0.045 Sodium 139.5 Potassium 4.1 Chloride 112 H Carbon Dioxide 22 Anion Gap 6 BUN 55 H Creatinine 3.46 H Est GFR ( Amer) 22 L Est GFR (Non-Af Amer) 18 L Glucose 137 H Calcium 8.5 Iron TIBC % Saturation Ferritin Vitamin B12 Folate 06/30/18 05:40 WBC RBC Hgb Hct MCV MCH MCHC RDW Plt Count Seg Neutrophils % Lymphocytes % Monocytes % Eosinophils % Basophils % Absolute Neutrophils Absolute Lymphocytes Absolute Monocytes Absolute Eosinophils Absolute Basophils Retic Count (auto) Absolute Retic Sodium Potassium Chloride Carbon Dioxide Anion Gap BUN Creatinine Est GFR ( Amer) Est GFR (Non-Af Amer) Glucose Calcium Iron 30.7 L TIBC 205 L % Saturation 15 Ferritin 91.60 Vitamin B12 916.0 Folate 10.40 Assessment & Plan - Diagnosis (1) CKD (chronic kidney disease) stage 4, GFR 15-29 ml/min Is this a current diagnosis for this admission?: Yes Plan: Status post left nephrectomy donated to his sister. Previously known to have nephrotic range proteinuria secondary to diabetic nephropathy with contribution of hypertensive nephrosclerosis. His kidney function has significantly declined compared to the past year which is actually not surprising considering the patient's history of flu long uncontrolled hypertension and diabetes mellitus which is mostly controlled previously. This may be the patient's new baseline kidney function. Patient does not appear to be uremic or fluid overloaded. He does not require urgent renal replacement therapy nor do we need to be initiated during this admission. However I discussed with the patient that with his worsening and progressive kidney function is probably going to need to be initiated and renal replacement therapy sooner than later, may be within the year. Advised patient the importance of consistent follow-up to monitor his kidney function and complications of kidney disease for appropriate treatment. After this admission and I encourage patient to continue to follow-up with me. We will check the patient's phosphorus, PTH, urine protein to creatinine ratio and vitamin D levels. Resume lisinopril and hold torsemide for now. (2) Diabetic nephropathy Qualifiers: Diabetes mellitus type: type 2 Qualified Code(s): E11.21 - Type 2 diabetes mellitus with diabetic nephropathy Is this a current diagnosis for this admission?: Yes (3) Nephrotic range proteinuria Is this a current diagnosis for this admission?: Yes (4) Diabetes mellitus type 2 in obese Is this a current diagnosis for this admission?: Yes Plan: Seems adequately controlled. (5) Hypertension Is this a current diagnosis for this admission?: Yes Plan: Not optimally controlled but fair and acceptable. I would resume the patient's lisinopril at 40 mg p.o. daily. Since the patient does not present with any swelling I would just hold the torsemide for now. (6) Anemia in chronic kidney disease (CKD) Is this a current diagnosis for this admission?: Yes Plan: Iron panel is suboptimal. Patient does not need any Procrit at this time. (7) Renal mass Is this a current diagnosis for this admission?: Yes Plan: Unchanged compared to previous. Advised patient to follow-up with Dr. Morales and Dr. Garcia whom he has seen a year ago in 2017 to follow-up on this for further management. - Notes Notes: Thank you very much for this consultation. We will follow the patient with you. - Time Time Spent: Greater than 70 Minutes
[2018-06-30] MEDS ORDERED: NORMAL SALINE 1000 ML 1,000 ML IV PRN (17:35)
[2018-06-30] MEDS ORDERED: DEXTROSE 40% GEL 15 GM TUBE PO PRN ×2 (17:36)
[2018-06-30] MEDS ORDERED: GLUCAGON,HUMAN RECOMB 1 MG INJ IM PRN (17:36)
[2018-06-30] MEDS ORDERED: INSULIN REG, HUMAN 100 UNIT/ML 3 ML VIAL (PYX) SUBCUT PRN (17:36)
[2018-06-30] MEDS ORDERED: DEXTROSE 50%-WATER 25 GM/50 ML DISP.SYRIN IV PRN ×2 (17:36)
--- NOTE | 2018-06-30 17:53 | PDOC PROGRESS REPORT ---
Subjective Progress Note for:: 06/30/18 Subjective:: The patient is a 58-year-old male with a past medical history of hyperlipidemia, hypertension, asthma, COPD, DM 2, GERD, arthritis, depression, anxiety, ZACH, left kidney donor, CKD 3, and a 2.5 cm mass in the remaining right kidney who was admitted 06/29/2018 for anemia and hypertensive urgency. Patient was seen on afternoon rounds. He was found sitting up to the edge of the bed comfortably on room air. He reports that he is feeling well today; states that he presented to the emergency department yesterday due to vague symptoms of not feeling well. His only complaint today is persistent dizziness that worsens with activity and resolves shortly after rest. He states that the dizziness has been present for approximately 3 months; began shortly after onset of chronic loose stools. He reports 2 watery bowel movements today. He denies fever, chills, headache, syncope/near syncope, chest pain, palpitations, dyspnea, orthopnea, abdominal pain, nausea and vomiting. He has no other questions or concerns at this time. No concerns per nursing. Reason For Visit: HTN URGENCY, ARF, WT LOSS, RENAL MASS Physical Exam Vital Signs: Temp Pulse Resp BP Pulse Ox 98.2 F 72 20 152/83 H 100 06/30/18 14:50 06/30/18 14:50 06/30/18 14:50 06/30/18 14:50 06/30/18 14:50 Intake & Output 06/29/18 06/30/18 07/01/18 06:59 06:59 06:59 Intake Total 336 712 Output Total 100 300 Balance 236 412 Weight 124.8 kg General appearance: PRESENT: no acute distress, obese, well-developed, well- nourished Head exam: PRESENT: atraumatic, normocephalic Eye exam: PRESENT: conjunctiva pink, EOMI, PERRLA. ABSENT: scleral icterus Ear exam: PRESENT: normal external ear exam Mouth exam: PRESENT: moist, tongue midline Neck exam: ABSENT: carotid bruit, JVD, lymphadenopathy, thyromegaly Respiratory exam: PRESENT: clear to auscultation octavia. ABSENT: rales, rhonchi, wheezes Cardiovascular exam: PRESENT: RRR. ABSENT: diastolic murmur, rubs, systolic murmur Pulses: PRESENT: normal dorsalis pedis pul Vascular exam: PRESENT: normal capillary refill GI/Abdominal exam: PRESENT: normal bowel sounds, soft. ABSENT: distended, guarding, mass, organolmegaly, rebound, tenderness Rectal exam: PRESENT: deferred Extremities exam: PRESENT: full ROM. ABSENT: calf tenderness, clubbing, pedal edema Neurological exam: PRESENT: alert, awake, oriented to person, oriented to place, oriented to time, oriented to situation, CN II-XII grossly intact. ABSENT: motor sensory deficit Psychiatric exam: PRESENT: appropriate affect, normal mood. ABSENT: homicidal ideation, suicidal ideation Skin exam: PRESENT: dry, intact, warm. ABSENT: cyanosis, rash Results Laboratory Results: 06/30/18 05:40 06/30/18 05:40 06/30/18 06/30/18 06/30/18 05:40 05:40 05:40 WBC 10.9 H RBC 3.29 L Hgb 10.6 L Hct 30.4 L MCV 93 MCH 32.2 MCHC 34.8 RDW 13.7 Plt Count 183 Seg Neutrophils % 62.2 Lymphocytes % 27.6 Monocytes % 6.5 Eosinophils % 3.0 Basophils % 0.7 Absolute Neutrophils 6.8 Absolute Lymphocytes 3.0 Absolute Monocytes 0.7 Absolute Eosinophils 0.3 Absolute Basophils 0.1 Retic Count (auto) 1.38 Absolute Retic 0.045 Sodium 139.5 Potassium 4.1 Chloride 112 H Carbon Dioxide 22 Anion Gap 6 BUN 55 H Creatinine 3.46 H Est GFR ( Amer) 22 L Est GFR (Non-Af Amer) 18 L Glucose 137 H Calcium 8.5 Iron TIBC % Saturation Ferritin Vitamin B12 Folate 06/30/18 05:40 WBC RBC Hgb Hct MCV MCH MCHC RDW Plt Count Seg Neutrophils % Lymphocytes % Monocytes % Eosinophils % Basophils % Absolute Neutrophils Absolute Lymphocytes Absolute Monocytes Absolute Eosinophils Absolute Basophils Retic Count (auto) Absolute Retic Sodium Potassium Chloride Carbon Dioxide Anion Gap BUN Creatinine Est GFR ( Amer) Est GFR (Non-Af Amer) Glucose Calcium Iron 30.7 L TIBC 205 L % Saturation 15 Ferritin 91.60 Vitamin B12 916.0 Folate 10.40 Assessment & Plan - Diagnosis (1) Anemia in chronic kidney disease (CKD) Is this a current diagnosis for this admission?: Yes Plan: Secondary to iron deficiency and chronic kidney disease. Anemia panel revealed suboptimal iron. Nephrology is consulted; appreciate their assistance. Continue iron supplements. Registered dietitian is consulted. (2) CKD (chronic kidney disease) stage 4, GFR 15-29 ml/min Is this a current diagnosis for this admission?: Yes Plan: Creatinine of 3.46 and BUN 55; appears to be baseline. Patient reports good urinary output. Avoid nephrotoxic medications as able. Nephrology is consulted; appreciate Dr. Corey's assistance. (3) Diabetes mellitus type 2 in obese Is this a current diagnosis for this admission?: Yes Plan: Hemoglobin A1c is pending. Patient is placed on a consistent carb diet. Accu-Cheks before meals and at bedtime with Humalog for sliding scale coverage. (4) Hypertensive urgency Is this a current diagnosis for this admission?: Yes Plan: Blood pressures are improved; though remains hypertensive. BP 152/83, down from 200/90. Continue home regiment of amlodipine, hydralazine, labetalol, and lisinopril. Nephrology is consulted; appreciate Dr. Corey's assistance. Low-sodium diet. (5) Renal mass Is this a current diagnosis for this admission?: Yes Plan: Known right renal mass since 2017; poor follow-up due to financial issues. Follow-up imaging shows that the mass is not significantly changed since that time; 2.5 cm. Oncology has been consulted; appreciate Dr. Castro's evaluation recommendations. Patient should follow-up with urology as an outpatient. (6) Obstructive sleep apnea Is this a current diagnosis for this admission?: Yes Plan: CPAP nightly. (7) Dizziness Is this a current diagnosis for this admission?: Yes Plan: Patient was found to have orthostatic vital signs. Will check AM cortisol. Have ordered 1 L normal saline at 125/h. Will continue daily orthostats. Fall precautions. (8) Frequent loose stools Qualifiers: Diarrhea type: unspecified type Qualified Code(s): R19.7 - Diarrhea, unspecified Is this a current diagnosis for this admission?: Yes Plan: Unlikely to be infectious; normal WBC and afebrile. He does have increased left flank pain. Patient reports frequent loose stools for the previous 3 months. However, per nursing, the patient requested stool softener today. Noncontrasted CT abdomen and pelvis demonstrated the above-mentioned renal mass, small uncomplicated inguinal hernias, and no other acute findings in abdomen or pelvis. Will obtain stool culture. Consider fiber supplement. - Time Time Spent with patient: 15-24 minutes Medications reviewed and adjusted accordingly: Yes Anticipated discharge: Home Within: within 24 hours
[2018-06-30] MEDS ORDERED: CYCLOBENZAPRINE HCL 10 MG TABLET PO SCH (18:00)
[2018-06-30] MEDS ORDERED: CLONAZEPAM 1 MG TABLET PO SCH (22:00)
[2018-07-01 04:28] LABS: APPEARANCE,URINE SLIGHTLY-CLOUDY; BILIRUBIN,URINE NEGATIVE (NEGATIVE); COLOR,URINE YELLOW; GLUCOSE, URINE 150 mg/dL (NEGATIVE); KETONES,URINE NEGATIVE (NEGATIVE); LEUKOCYTE ESTERASE,URINE NEGATIVE (NEGATIVE); NITRITE,URINE NEGATIVE (NEGATIVE); PROTEIN,URINE >=500 mg/dL (NEGATIVE); URINE SPECIFIC GRAVITY 1.012; UROBILINOGEN,URINE NEGATIVE mg/dL (<2.0)
[2018-07-01 05:01] LABS: URINE CREATININE 98.3 mg/dL (22-328)
[2018-07-01] MEDS: HEPARIN SOD (PORCINE) 5,000 UNIT/ML 1 ML SYRINGE SUBCUT SCH (05:22)
[2018-07-01] MEDS: HYDRALAZINE HCL 50 MG TABLET PO SCH (05:22)
[2018-07-01] MEDS: LABETALOL HCL 200 MG TABLET PO SCH (05:22)
[2018-07-01 06:17] LABS: UR PRO/CREAT RATIO RESULT 17.9 mg/mg (0.0-0.2); URINE PROTEIN 1761.7 mg/dL (<12)
[2018-07-01 06:21] LABS: ABSOLUTE BASOPHILS # (AUTO) 0.1 10^3/uL (0.0-0.2); ABSOLUTE EOSINOPHILS # (AUTO) 0.3 10^3/uL (0.0-0.6); ABSOLUTE LYMPHOCYTES (AUTO) 2.3 10^3/uL (0.5-4.7); ABSOLUTE MONOCYTES (AUTO) 0.5 10^3/uL (0.1-1.4); ABSOLUTE NEUT (AUTO) 4.9 10^3/uL (1.7-8.2); BASOPHILS % (AUTO) 0.9 % (0-2); EOSINOPHILS % (AUTO) 4.2 % (0-6); HEMOGLOBIN 10.4 g/dL (13.5-17.0); LYMPHOCYTES % (AUTO) 28.2 % (13-45); MEAN CORPUSCULAR HEMOGLOBIN 31.9 pg (27.0-33.4); MEAN CORPUSCULAR HGB CONC 34.5 g/dL (32.0-36.0); MEAN CORPUSCULAR VOLUME 92 fl (80-97); MONOCYTES % (AUTO) 5.9 % (3-13); PLATELET COUNT 203 10^3/uL (150-450); RED BLOOD COUNT 3.25 10^6/uL (4.35-5.55); RED CELL DISTRIBUTION WIDTH 14.4 % (11.5-14.0); SEGMENTED NEUTROPHILS % (AUTO) 60.8 % (42-78); TOTAL CELLS COUNTED % (AUTO) 100 %; WHITE BLOOD COUNT 8.1 10^3/uL (4.0-10.5)
[2018-07-01 06:35] LABS: ANION GAP 7 (5-19); BLOOD UREA NITROGEN 57 mg/dL (7-20); CALCIUM 8.3 mg/dL (8.4-10.2); CARBON DIOXIDE 21 mmol/L (22-30); CHLORIDE 111 mmol/L (98-107); GLUCOSE 151 mg/dL (75-110); PHOSPHORUS 5.4 mg/dL (2.5-4.5); POTASSIUM 3.9 mmol/L (3.6-5.0); SODIUM 138.9 mmol/L (137-145)
--- NOTE | 2018-07-01 08:36 | PDOC PROGRESS REPORT ---
Subjective Progress Note for:: 07/01/18 Subjective:: No acute events overnight, I reviewed imaging going all the way back to 05/2017 and there is no change in that kidney mass. His next imaging should be in 3-6 months. He can follow-up with Dr. Castro within 4-6 weeks to establish care. Reason For Visit: HTN URGENCY, ARF, WT LOSS, RENAL MASS Physical Exam Vital Signs: Temp Pulse Resp BP Pulse Ox 98.5 F 68 19 160/75 H 99 07/01/18 04:00 07/01/18 07:00 07/01/18 04:00 07/01/18 04:00 07/01/18 04:00 Intake & Output 06/30/18 07/01/18 07/02/18 06:59 06:59 06:59 Intake Total 336 1439 Output Total 100 680 Balance 236 759 Weight 124.8 kg 126.4 kg General appearance: PRESENT: no acute distress, well-developed, well-nourished Head exam: PRESENT: atraumatic, normocephalic Eye exam: PRESENT: conjunctiva pink, EOMI, PERRLA. ABSENT: scleral icterus Ear exam: PRESENT: normal external ear exam Mouth exam: PRESENT: moist, tongue midline Neck exam: ABSENT: carotid bruit, JVD, lymphadenopathy, thyromegaly Respiratory exam: PRESENT: clear to auscultation octavia. ABSENT: rales, rhonchi, wheezes Cardiovascular exam: PRESENT: RRR. ABSENT: diastolic murmur, rubs, systolic murmur Pulses: PRESENT: normal dorsalis pedis pul Vascular exam: PRESENT: normal capillary refill GI/Abdominal exam: PRESENT: normal bowel sounds, soft. ABSENT: distended, guarding, mass, organolmegaly, rebound, tenderness Rectal exam: PRESENT: deferred Extremities exam: PRESENT: full ROM. ABSENT: calf tenderness, clubbing, pedal edema Neurological exam: PRESENT: alert, awake, oriented to person, oriented to place, oriented to time, oriented to situation, CN II-XII grossly intact. ABSENT: motor sensory deficit Psychiatric exam: PRESENT: appropriate affect, normal mood. ABSENT: homicidal ideation, suicidal ideation Skin exam: PRESENT: dry, intact, warm. ABSENT: cyanosis, rash Results Laboratory Results: 07/01/18 06:00 07/01/18 06:00 06/30/18 07/01/18 07/01/18 20:58 04:05 06:00 WBC 8.1 RBC 3.25 L Hgb 10.4 L Hct 30.0 L MCV 92 MCH 31.9 MCHC 34.5 RDW 14.4 H Plt Count 203 Seg Neutrophils % 60.8 Lymphocytes % 28.2 Monocytes % 5.9 Eosinophils % 4.2 Basophils % 0.9 Absolute Neutrophils 4.9 Absolute Lymphocytes 2.3 Absolute Monocytes 0.5 Absolute Eosinophils 0.3 Absolute Basophils 0.1 Sodium Potassium Chloride Carbon Dioxide Anion Gap BUN Creatinine Est GFR ( Amer) Est GFR (Non-Af Amer) Glucose Calcium Phosphorus PTH Intact Urine Color YELLOW Urine Appearance SLIGHTLY-CLOUDY Urine pH 5.0 Ur Specific [place] 1.012 Urine Protein >=500 H Urine Glucose (UA) 150 H Urine Ketones NEGATIVE Urine Blood NEGATIVE Urine Nitrite NEGATIVE Ur Leukocyte Esterase NEGATIVE Urine WBC (Auto) 1 Urine RBC (Auto) 1 Stool Occult Blood NEGATIVE 07/01/18 07/01/18 06:00 06:00 WBC RBC Hgb Hct MCV MCH MCHC RDW Plt Count Seg Neutrophils % Lymphocytes % Monocytes % Eosinophils % Basophils % Absolute Neutrophils Absolute Lymphocytes Absolute Monocytes Absolute Eosinophils Absolute Basophils Sodium 138.9 Potassium 3.9 Chloride 111 H Carbon Dioxide 21 L Anion Gap 7 BUN 57 H Creatinine 3.64 H Est GFR ( Amer) 21 L Est GFR (Non-Af Amer) 17 L Glucose 151 H Calcium 8.3 L Phosphorus 5.4 H PTH Intact 119.2 H Urine Color Urine Appearance Urine pH Ur Specific [place] Urine Protein Urine Glucose (UA) Urine Ketones Urine Blood Urine Nitrite Ur Leukocyte Esterase Urine WBC (Auto) Urine RBC (Auto) Stool Occult Blood Assessment & Plan - Diagnosis (1) Renal mass Is this a current diagnosis for this admission?: Yes Plan: Concerning with his history for a primary renal cell carcinoma, will require continued follow-up and ultimate urology referral. We will follow peripherally, told nursing secretary to set up appointment with our office within 4-6 weeks.
[2018-07-01] MEDS ORDERED: LISINOPRIL 10 MG TABLET PO SCH (10:00)
[2018-07-01] MEDS: AMLODIPINE BESYLATE 10 MG TABLET PO SCH (10:42)
[2018-07-01] MEDS: FERROUS SULFATE 325 MG TABLET PO SCH (10:42)
[2018-07-01] MEDS: DOCUSATE SODIUM 100 MG CAPSULE PO SCH (10:43)
[2018-07-01] MEDS ORDERED: NORMAL SALINE 1000 ML 1,000 ML IV ONE (11:08)
[2018-07-01] MEDS: ACETAMINOPHEN 325 MG TABLET PO PRN (11:10)
[2018-07-01 14:48] VITALS: BP 165/86
--- NOTE | 2018-07-03 08:32 | PDOC DISCHARGE SUMMARY ---
General - Admit/Disc Date/PCP Admission Date/Primary Care Provider: 06/29/18 23:33 Discharge Date: 07/01/18 - Discharge Diagnosis (1) Anemia in chronic kidney disease (CKD) Is this a current diagnosis for this admission?: Yes Summary: Secondary to iron deficiency and chronic kidney disease. Anemia panel revealed suboptimal iron. Hemoglobin was stable at 10.4; no evidence of active bleeding. Nephrology was consulted; there is no indication for erythropoietin at this time. Recommend continuing p.o. iron supplementation. (2) CKD (chronic kidney disease) stage 4, GFR 15-29 ml/min Is this a current diagnosis for this admission?: Yes Summary: Creatinine of 3.46 and BUN 55; at baseline. Patient reports good urinary output. Nephrology was consulted; confirms baseline kidney function. Patient is advised of the importance to follow-up with Dr. Corey in 2 weeks for labs and then for an appointment 1 week later. (3) Diabetes mellitus type 2 in obese Is this a current diagnosis for this admission?: Yes Summary: A1c 6.1% Recommend continuing consistent carb diet and resuming home dose insulin regimen at discharge. (4) Hypertensive urgency Is this a current diagnosis for this admission?: Yes Summary: Resolved after resuming the patient's home prescribed medication regiment. Recommend continuing a low-sodium diet and following up with nephrology as outlined above. (5) Renal mass Is this a current diagnosis for this admission?: Yes Summary: Known right renal mass since 2017; poor follow-up due to financial issues. Follow-up imaging shows that the mass is not significantly changed since that time; 2.5 cm. Oncology was consulted; patient follow-up with Dr. Morales in 2-4 weeks. (6) Obstructive sleep apnea Is this a current diagnosis for this admission?: Yes (7) Dizziness Is this a current diagnosis for this admission?: Yes Summary: A.m. cortisol was normal. He was found to have orthostatic vital signs which resolved after a 1 L normal saline bolus. The patient reports that his dizziness has now resolved. Patient was encouraged to increase his fluid intake and to change positions slowly. (8) Frequent loose stools Is this a current diagnosis for this admission?: Yes Summary: Unlikely to be infectious; normal WBC and afebrile. He does have increased left flank pain. Patient reports frequent loose stools for the previous 3 months. However, per nursing, the patient requested stool softener today. Noncontrasted CT abdomen and pelvis demonstrated the above-mentioned renal mass, small uncomplicated inguinal hernias, and no other acute findings in abdomen or pelvis. Stool culture remains negative at 3 days. Recommend increasing water and fiber intake; may consider fiber supplement. - Additional Information Resuscitation Status: Full Code Discharge Diet: Cardiac, Diabetic Discharge Activity: Activity As Tolerated, Balance Activity w/Rest, Slowly Increase Activity Home Medications: Atorvastatin Calcium [Lipitor 80 mg Tablet] 80 mg PO QPM 06/30/18 Clonazepam [Klonopin 1 mg Tablet] 1 mg PO QHS 06/30/18 Cyclobenzaprine HCl [Flexeril 10 mg Tablet] 10 mg PO QHS 06/30/18 Ergocalciferol (Vitamin D2) [Drisdol 50,000 unit (1.25MG) Capsule] 50,000 unit PO [id number] 06/30/18 Ferrous Sulfate [Feosol 325 mg Tablet] 325 mg PO DAILY 06/30/18 Hydralazine HCl 100 mg PO Q8 06/30/18 Hydrocodone/Acetaminophen [[place] 7.5-325 mg Tablet] 1 tab PO Q8 06/30/18 Insulin Aspart [Novolog Flexpen] 25 unit SUBCUT AC 06/30/18 Insulin Glargine,Hum.rec.anlog [Toujeo Solostar] 50 units SUBCUT QHS 06/30/18 Labetalol HCl [Normodyne 200 mg Tablet] 100 mg PO QID 06/30/18 Lisinopril [Prinivil 40 mg Tablet] 40 mg PO QAM 06/30/18 Omeprazole 40 mg PO QHS 06/30/18 Potassium Chloride [Klor-Con M20] 20 meq PO ACSUPPER 06/30/18 Torsemide [Demadex 20 mg Tablet] 20 mg PO DAILY 06/30/18 Acetaminophen [Tylenol 325 mg Tablet] 650 mg PO Q4HP PRN tablet 07/01/18 Amlodipine Besylate [Norvasc 10 mg Tablet] 10 mg PO DAILY tablet 07/01/18 Clonazepam [Klonopin 1 mg Tablet] 1 mg PO QHS tablet 07/01/18 Cyclobenzaprine HCl [Flexeril 10 mg Tablet] 10 mg PO QPM tablet 07/01/18 Ferrous Sulfate [Feosol 325 mg Tablet] 325 mg PO DAILY tablet 07/01/18 Gabapentin [Neurontin 300 mg Capsule] 300 mg PO TID capsule 07/01/18 Hydralazine HCl [Apresoline 50 mg Tablet] 100 mg PO Q8 tablet 07/01/18 Labetalol HCl [Normodyne 200 mg Tablet] 400 mg PO Q8 tablet 07/01/18 Lisinopril [Prinivil 10 mg Tablet] 40 mg PO DAILY tablet 07/01/18 History of Present Illness History of Present Illness: Per H&P by Dr. Whipple: CLARI TSAI JR is a 58 year old male with an extensive past medical history of a kidney donor and subsequent single kidney, chronic renal failure, 2.5 cm mass in the remaining right kidney by MRI of May 2017, hypertension, diabetes, anxiety and obstructive sleep apnea. He presents with abnormal labs of worsening renal failure in addition to unintentional weight loss of approximately 80 pounds over the last 12 months, in addition to intermittent left-sided abdominal pain. In the emergency room he is found to have hypertensive urgency, anemia, acute on chronic renal failure. He is referred to the hospitalist for admission. Patient is very difficult to focus on single complaint as he has a myriad of vague multisystem complaints. He is unable to tell me his medication regiment Physical Exam Vital Signs: Temp Pulse Resp BP Pulse Ox 97.6 F 63 18 165/86 H 99 07/01/18 14:46 07/01/18 14:46 07/01/18 14:46 07/01/18 14:46 07/01/18 14:46 Intake & Output 07/02/18 07/03/18 07/04/18 06:59 06:59 06:59 Intake Total 1000 Balance 1000 General appearance: PRESENT: no acute distress, obese, well-developed, well- nourished Head exam: PRESENT: atraumatic, normocephalic Eye exam: PRESENT: conjunctiva pink, EOMI, PERRLA. ABSENT: scleral icterus Ear exam: PRESENT: normal external ear exam Mouth exam: PRESENT: moist, tongue midline Neck exam: ABSENT: carotid bruit, JVD, lymphadenopathy, thyromegaly Respiratory exam: PRESENT: clear to auscultation octavia, symmetrical, unlabored. ABSENT: rales, rhonchi, wheezes Cardiovascular exam: PRESENT: RRR, +S1, +S2. ABSENT: diastolic murmur, rubs, systolic murmur Pulses: PRESENT: normal dorsalis pedis pul Vascular exam: PRESENT: normal capillary refill GI/Abdominal exam: PRESENT: normal bowel sounds, soft. ABSENT: distended, guarding, mass, organolmegaly, rebound, tenderness Rectal exam: PRESENT: deferred Extremities exam: PRESENT: full ROM. ABSENT: calf tenderness, clubbing, pedal edema Neurological exam: PRESENT: alert, awake, oriented to person, oriented to place, oriented to time, oriented to situation, CN II-XII grossly intact. ABSENT: motor sensory deficit Psychiatric exam: PRESENT: appropriate affect, normal mood. ABSENT: homicidal ideation, suicidal ideation Skin exam: PRESENT: dry, intact, warm. ABSENT: cyanosis, rash Results Laboratory Results: 07/01/18 06:00 07/01/18 06:00 Qualifiers - * PATIENT BEING DISCHARGED WITH ANY OF THE FOLLOWING DIAGNOSIS: No Plan Discharge Plan: Discharge to home with self-care. Continue home medications unchanged. Follow-up with your primary care provider within [address] Corey's office in 2 weeks for repeat lab work (CBC and BMP) with follow-up appointment one week later. Follow-up with Dr. Castro in 2-4 weeks. Return to the emergency department as needed for concerning symptoms. Time Spent: Less than 30 Minutes
== END 2018-07-01 16:22 | disposition home or self-care (01) | DRG 683 ==
LOC: ER 16:56 → EH 23:33 → 4N 06-30 01:50
PROVIDERS: ADMIT Internal Medicine; ATTEND Internal Medicine
DX: I12.9 Hypertensive chronic kidney disease with stage 1 through stage 4 chronic kidney disease, or unspecified chronic kidney disease (principal); N17.9 Acute kidney failure, unspecified; N18.4 Chronic kidney disease, stage 4 (severe); E11.22 Type 2 diabetes mellitus with diabetic chronic kidney disease; I16.0 Hypertensive urgency; D63.1 Anemia in chronic kidney disease; G47.33 Obstructive sleep apnea (adult) (pediatric); N28.89 Other specified disorders of kidney and ureter; F41.9 Anxiety disorder, unspecified; E78.5 Hyperlipidemia, unspecified; J44.9 Chronic obstructive pulmonary disease, unspecified; K21.9 Gastro-esophageal reflux disease without esophagitis; M19.042 Primary osteoarthritis, left hand; M19.041 Primary osteoarthritis, right hand; F32.9 Major depressive disorder, single episode, unspecified; E66.9 Obesity, unspecified; D50.9 Iron deficiency anemia, unspecified; K52.9 Noninfective gastroenteritis and colitis, unspecified; R63.0 Anorexia; I87.2 Venous insufficiency (chronic) (peripheral); G25.81 Restless legs syndrome; L30.9 Dermatitis, unspecified; R63.4 Abnormal weight loss; R41.3 Other amnesia; R51 Headache; R42 Dizziness and giddiness; Z90.5 Acquired absence of kidney; Z68.36 Body mass index [BMI] 36.0-36.9, adult; Z79.4 Long term (current) use of insulin; Z83.3 Family history of diabetes mellitus; Z84.1 Family history of disorders of kidney and ureter; Z82.5 Family history of asthma and other chronic lower respiratory diseases
CPT/HCPCS: 36415; 80048; 81001; 82272; 82306; 82533; 82570; 82607; 82728; 82746; 82962; 83036; 83540; 83550; 83970; 84100; 84156; 85025; 85045; 87045; 87205; 87493; 99284; J0360; J1644; J1815; J7030

== ENCOUNTER → 2018-06-29 | Outpatient (CLI) | payer OTHER ==
[2018-06-29 14:44] LABS: ABSOLUTE BASOPHILS # (AUTO) 0.1 10^3/uL (0.0-0.2); ABSOLUTE EOSINOPHILS # (AUTO) 0.2 10^3/uL (0.0-0.6); ABSOLUTE LYMPHOCYTES (AUTO) 2.5 10^3/uL (0.5-4.7); ABSOLUTE MONOCYTES (AUTO) 0.6 10^3/uL (0.1-1.4); ABSOLUTE NEUT (AUTO) 5.7 10^3/uL (1.7-8.2); BASOPHILS % (AUTO) 0.7 % (0-2); EOSINOPHILS % (AUTO) 1.9 % (0-6); HEMATOCRIT 33.4 % (37.9-51.0); HEMOGLOBIN 11.5 g/dL (13.5-17.0); LYMPHOCYTES % (AUTO) 27.4 % (13-45); MEAN CORPUSCULAR HEMOGLOBIN 31.5 pg (27.0-33.4); MEAN CORPUSCULAR HGB CONC 34.4 g/dL (32.0-36.0); MEAN CORPUSCULAR VOLUME 92 fl (80-97); PLATELET COUNT 242 10^3/uL (150-450); RED BLOOD COUNT 3.64 10^6/uL (4.35-5.55); RED CELL DISTRIBUTION WIDTH 14.3 % (11.5-14.0); TOTAL CELLS COUNTED % (AUTO) 100 %; WHITE BLOOD COUNT 9.1 10^3/uL (4.0-10.5)
[2018-06-29 15:12] LABS: ALANINE AMINOTRANSFERASE 29 U/L (21-72); ALBUMIN 3.6 g/dL (3.5-5.0); ALKALINE PHOSPHATASE 78 U/L (38-126); ANION GAP 9 (5-19); ASPARTATE AMINO TRANSFERASE 24 U/L (17-59); BILIRUBIN,DIRECT 0.4 mg/dL (0.0-0.4); BILIRUBIN,TOTAL 0.8 mg/dL (0.2-1.3); BLOOD UREA NITROGEN 51 mg/dL (7-20); CALCIUM 8.7 mg/dL (8.4-10.2); CARBON DIOXIDE 23 mmol/L (22-30); CHLORIDE 110 mmol/L (98-107); CHOLESTEROL 178.57 mg/dL (0-200); GLUCOSE 110 mg/dL (75-110); POTASSIUM 4.9 mmol/L (3.6-5.0); SODIUM 141.8 mmol/L (137-145); TRIGLYCERIDES 448 mg/dL (<150)
[2018-06-29 15:23] LABS: DIRECT LDL 53 mg/dL (<100)
== END ==
LOC: CCC 13:59
DX: Z00.00 Encounter for general adult medical examination without abnormal findings (principal)
CPT/HCPCS: 36415; 80053; 80061; 83036; 84443; 85025

== ENCOUNTER → 2018-06-29 | Outpatient (CLI) | payer OTHER ==
--- NOTE | 2018-06-29 12:40 | RADIOLOGY REPORT (SQ) ---
EXAM DESCRIPTION: CT ABD/PELVIS NO ORAL OR IV COMPLETED DATE/TIME: 06/29/2018 12:19 pm REASON FOR STUDY: R10.9 UNSPECIFIED ABDOMINAL PAIN H81.49 VERTIGO OF CENTRAL ORIGIN, UNSPECIFIED EA R R10.9 UNSPECIFIED ABDOMINAL PAIN COMPARISON: 05/25/2017 TECHNIQUE: CT scan of the abdomen and pelvis performed without intravenous or oral contrast. Images reviewed with lung, soft tissue, and bone windows. Reconstructed coronal and sagittal MPR images revi ewed. All images stored on PACS. All CT scanners at this facility use dose modulation, iterative reconstruction, and/or weight based d osing when appropriate to reduce radiation dose to as low as reasonably achievable (ALARA). [facility]: Dose Right [facility]: CareDose [facility]: Dose Right [facility]: Teradose 4D [facility]: Bioclones RADIATION DOSE: mGy. LIMITATIONS: None. FINDINGS: LOWER CHEST: No significant findings. No nodules or infiltrates. NON-CONTRASTED LIVER, SPLEEN, ADRENALS: Evaluation limited by lack of IV contrast. No identified sign ificant masses. PANCREAS: No masses. No peripancreatic inflammatory changes. GALLBLADDER: No identified stones by CT criteria. No inflammatory changes to suggest cholecystitis. RIGHT KIDNEY AND URETER: There is a 25 mm slightly hyperdense solid nodule arising from the lower ely e. No significant calcifications. No hydronephrosis or hydroureter. LEFT KIDNEY AND URETER: Surgically absent. AORTA AND RETROPERITONEUM: No aneurysm. No retroperitoneal masses or adenopathy. BOWEL AND PERITONEAL CAVITY: No obvious masses or inflammatory changes. No free fluid. APPENDIX: Surgically absent. PELVIS, BLADDER, AND ABDOMINAL WALL:Bilateral small uncomplicated inguinal hernias. No pelvic masses or fluid collection. The urinary bladder is normal. BONES: No significant findings. OTHER: No other significant finding. IMPRESSION: 1. 25 mm slightly hyperdense solid nodule in the lower pole the right kidney. This christianson s not appear significantly enlarged since the earlier study. Nevertheless, this is concerning for ne oplasm. 2. Small uncomplicated inguinal hernias. 3. No acute findings in the abdomen or pelvis. COMMENT: Findings were reported to Gallo at the [facility] at 1234 hours on this date. Quality ID # [id number]: Final reports with documentation of one or more dose reduction techniques (e.g., Au tomated exposure control, adjustment of the mA and/or kV according to patient size, use of iterative reconstruction technique) TECHNICAL DOCUMENTATION: JOB ID: [id number] [employer]- All Rights Reserved Reading location - IP/workstation name: [email or web address]
== END ==
LOC: RAD 12:10
DX: R10.13 Epigastric pain (principal); K40.20 Bilateral inguinal hernia, without obstruction or gangrene, not specified as recurrent; H81.49 Vertigo of central origin, unspecified ear
CPT/HCPCS: 74176; 82565

== ENCOUNTER 2018-08-04 14:17 | Inpatient (IN) | payer BC ==
[2018-08-04] MEDS ORDERED: LABETALOL HCL INJ 20 MG/4 ML DISP.SYRIN IV ONE (14:57)
--- NOTE | 2018-08-04 15:06 | ER Document Report ---
ED Medical Screen (RME) - General Chief Complaint: High Blood Pressure Stated Complaint: BLOOD PRESSURE ISSUES Time Seen by Provider: 08/04/18 14:49 Notes: Patient is a 58 year old male with hypertension that presents to the emergency department for chief complaint of elevated blood pressure and headache. ROS: Other than noted above, the 12 point review of systems was reviewed with the patient and were negative, all pertinent findings are included in the HPI. PHYSICAL EXAMINATION: Vital signs reviewed. GENERAL: Well-appearing, well-nourished and in no acute distress. HEAD: Atraumatic, normocephalic. EYES: Pupils equal round extraocular movements intact, conjunctiva are normal. ENT: Nares patent NECK: Normal range of motion CV: Heart regular rate and rhythm LUNGS: No respiratory distress Musculoskeletal: Normal range of motion NEUROLOGICAL: Normal speech PSYCH: Normal mood, normal affect. MDM: Patient seen and examined for rapid initial assessment. Vital signs reviewed. A comprehensive ED assessment and evaluation of the patient, analysis of test results and completion of the medical decision making process will be conducted by additional ED providers. *Note is created using voice recognition software and may contain spelling, syntax or grammatical errors. TRAVEL OUTSIDE OF THE [place] IN LAST 30 DAYS: No - Related Data Allergies/Adverse Reactions: povidone-iodine [From Betadine] Allergy (Severe, Verified 06/03/17 13:23) Generalized rash Soap [From Betadine] Allergy (Severe, Verified 06/03/17 13:23) Generalized rash Past Medical History - Social History Family history: Reviewed & Not Pertinent - Past Medical History Cardiac Medical History: Reports: Hx Hypercholesterolemia, Hx Hypertension Denies: Hx Coronary Artery Disease, Hx Heart Attack Pulmonary Medical History: Reports: Hx Asthma - no episodes in "quite awhile", Hx COPD, Hx Sleep Apnea Denies: Hx Bronchitis, Hx Pneumonia Neurological Medical History: Denies: Hx Cerebrovascular Accident, Hx Seizures Endocrine Medical History: Reports: Hx Diabetes Mellitus Type 2 Renal/ Medical History: Reports: Hx Kidney Stones - kidney disease. 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, Hx Tonsillectomy, Other - bilateral cataract extraction with insertion of lens - Immunizations Immunizations up to date: Yes Hx Diphtheria, Pertussis, Tetanus Vaccination: Yes History of Influenza Vaccine for 03/2017 - 08/2017 Season: Yes Influenza Administration Date for 03/2017 - 08/2017 Season: 03/14/17 Physical Exam - Vital signs Vitals: Temp Pulse Resp BP Pulse Ox 97.9 F 80 16 235/108 H 97 08/04/18 14:24 08/04/18 14:24 08/04/18 14:24 08/04/18 14:24 08/04/18 14:24 Course - Vital Signs Vital signs: Temp Pulse Resp BP Pulse Ox 97.9 F 80 16 222/109 H 97 08/04/18 14:24 08/04/18 14:24 08/04/18 14:24 08/04/18 14:28 08/04/18 14:24
[2018-08-04] MEDS ORDERED: HYDRALAZINE HCL INJ/PF 20 MG/1 ML SDV IV ONE (15:41)
[2018-08-04 15:51] LABS: ABSOLUTE BASOPHILS # (AUTO) 0.1 10^3/uL (0.0-0.2); ABSOLUTE EOSINOPHILS # (AUTO) 0.2 10^3/uL (0.0-0.6); ABSOLUTE MONOCYTES (AUTO) 0.5 10^3/uL (0.1-1.4); ABSOLUTE NEUT (AUTO) 6.9 10^3/uL (1.7-8.2); BASOPHILS % (AUTO) 0.7 % (0-2); EOSINOPHILS % (AUTO) 1.6 % (0-6); HEMATOCRIT 36.1 % (37.9-51.0); HEMOGLOBIN 12.3 g/dL (13.5-17.0); LYMPHOCYTES % (AUTO) 20.7 % (13-45); MEAN CORPUSCULAR HEMOGLOBIN 31.6 pg (27.0-33.4); MEAN CORPUSCULAR HGB CONC 34.1 g/dL (32.0-36.0); MEAN CORPUSCULAR VOLUME 93 fl (80-97); MONOCYTES % (AUTO) 5.1 % (3-13); PLATELET COUNT 217 10^3/uL (150-450); RED CELL DISTRIBUTION WIDTH 13.6 % (11.5-14.0); SEGMENTED NEUTROPHILS % (AUTO) 71.9 % (42-78); TOTAL CELLS COUNTED % (AUTO) 100 %; WHITE BLOOD COUNT 9.6 10^3/uL (4.0-10.5)
--- NOTE | 2018-08-04 15:55 | RADIOLOGY REPORT (SQ) ---
EXAM DESCRIPTION: CHEST SINGLE VIEW COMPLETED DATE/TIME: 08/04/2018 3:40 pm REASON FOR STUDY: short of breath COMPARISON: 02/19/2017 EXAM PARAMETERS: NUMBER OF VIEWS: One view. TECHNIQUE: Single frontal radiographic view of the chest acquired. RADIATION DOSE: NA LIMITATIONS: None. FINDINGS: LUNGS AND PLEURA: No opacities, masses or pneumothorax. No pleural effusion. MEDIASTINUM AND HILAR STRUCTURES: No masses. Contour normal. HEART AND VASCULAR STRUCTURES: Heart normal in size. Normal vasculature. BONES: No acute findings. HARDWARE: None in the chest. OTHER: No other significant finding. IMPRESSION: NO ACUTE RADIOGRAPHIC FINDING IN THE CHEST. TECHNICAL DOCUMENTATION: JOB ID: [id number] [employer]- All Rights Reserved Reading location - IP/workstation name: [email or web address]
[2018-08-04 16:02] LABS: ALANINE AMINOTRANSFERASE 39 U/L (21-72); ALBUMIN 3.8 g/dL (3.5-5.0); ALKALINE PHOSPHATASE 72 U/L (38-126); ANION GAP 7 (5-19); ASPARTATE AMINO TRANSFERASE 28 U/L (17-59); BILIRUBIN,DIRECT 0.2 mg/dL (0.0-0.4); BILIRUBIN,TOTAL 0.8 mg/dL (0.2-1.3); BLOOD UREA NITROGEN 54 mg/dL (7-20); CALCIUM 8.8 mg/dL (8.4-10.2); CARBON DIOXIDE 25 mmol/L (22-30); CHLORIDE 110 mmol/L (98-107); GLUCOSE 117 mg/dL (75-110); POTASSIUM 4.7 mmol/L (3.6-5.0); SODIUM 142.2 mmol/L (137-145); TOTAL PROTEIN 5.9 g/dL (6.3-8.2)
--- NOTE | 2018-08-04 16:49 | ER Document Report ---
ED General - General Chief Complaint: High Blood Pressure Stated Complaint: BLOOD PRESSURE ISSUES Time Seen by Provider: 08/04/18 14:49 Primary Care Provider: JOANN ARELLANO MD [Primary Care Provider] - Follow up as needed Notes: Patient is a 58-year-old male who presents to the emerge with a chief complaint of high blood pressure and headache. His symptoms started this morning and his headache has progressively gotten worse. He states that his headache is from his nose up and feels the same as when he was admitted last time for hypertensive urgency. His past medical history includes obstructive sleep apnea, tonic kidney disease stage IV, diabetes, hypertension, anemia, and obesity. He is currently on amlodipine, hydralazine, lisinopril, labetalol, and other chronic condition medications. He states that he is compliant with his medications. He has an appointment with the electrical technology instructor, Dr. Corey, to mojgan. TRAVEL OUTSIDE OF THE [place] IN LAST 30 DAYS: No - Related Data Allergies/Adverse Reactions: povidone-iodine [From Betadine] Allergy (Severe, Verified 06/03/17 13:23) Generalized rash Soap [From Betadine] Allergy (Severe, Verified 06/03/17 13:23) Generalized rash Past Medical History - Social History Smoking Status: Unknown if Ever Smoked Family History: CAD, Other - Renal failure Patient has suicidal ideation: No Patient has homicidal ideation: No - Past Medical History Cardiac Medical History: Reports: Hx Hypercholesterolemia, Hx Hypertension Denies: Hx Coronary Artery Disease, Hx Heart Attack Pulmonary Medical History: Reports: Hx Asthma - no episodes in "quite awhile", Hx COPD, Hx Sleep Apnea Denies: Hx Bronchitis, Hx Pneumonia Neurological Medical History: Denies: Hx Cerebrovascular Accident, Hx Seizures Endocrine Medical History: Reports: Hx Diabetes Mellitus Type 2 Renal/ Medical History: Reports: Hx Kidney Stones - kidney disease. 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 Denies recent unintentional weight loss. Denies fever, chills, or sweats. EENT: Denies eye, ear, throat, or mouth pain, discharge, or symptoms. Denies nasal or sinus congestion. CARDIOVASCULAR: Denies chest pain. RESPIRATORY: Denies shortness of breath, cough, congestion, difficulty breathing, or wheezing. GASTROINTESTINAL: Denies nausea, vomiting, and diarrhea. Denies abdominal pain. Denies constipation. GENITOURINARY: Denies difficulty urinating, burning, blood in urine, urgency or frequency. MUSCULOSKELETAL: Denies neck and back pain. Denies joint pain or swelling. SKIN: Denies rash, itchiness, or lesions HEMATOLOGIC : Denies easy bruising or bleeding. LYMPHATIC: Denies swollen, painful, enlarged glands. NEUROLOGICAL: see HPI PSYCHIATRIC: Denies stress, anxiety, alteration in sleep patterns, or depression. All other systems reviewed and negative. Physical Exam - Vital signs Vitals: Temp Pulse Resp BP Pulse Ox 97.9 F 80 16 235/108 H 97 08/04/18 14:24 08/04/18 14:24 08/04/18 14:24 08/04/18 14:24 08/04/18 14:24 - Notes Notes: PHYSICAL EXAMINATION: GENERAL: Appears well, healthy, well-nourished, no acute distress. HEAD: Normocephalic, atraumatic. EYES: PERRL, conjunctiva normal, all extraocular movements intact, sclera nonicteric ENT: Moist mucous membranes. NECK: Supple, no noticeable swelling, redness, rash. Normal range of motion. LUNGS: Equal breath sounds bilaterally and clear to auscultation. No wheezes rales or rhonchi. CARDIOVASCULAR: S1-S2, regular rate, regular rhythm. Radial pulses 2+, normal. ABDOMEN: Normoactive bowel sounds. Soft, nontender, no guarding, no rebound tenderness, and no masses palpated. EXTREMITIES: Normal strength and range of motion, no pitting or edema. No cyanosis. NEUROLOGICAL: Moves all extremities upon command. Strength 5/5 in all ex tremities. PSYCH: Normal mood, normal affect. SKIN: Warm, dry. No rash, lesions, ulcerations noted. Normal skin turgor. Course - Re-evaluation Re-evalutation: 08/04/18 16:45 Due to the patient being hypertensive and also having a headache, patient will be sent for CT of the head to rule out any intracranial bleed. 08/04/18 17:51 Patient did not have much improvement on IV hydralazine. And I have been informed that metoprolol is on a national back order. The patient will be started on a Cardene drip since his blood pressure went from 235/108 to a blood pressure of 201/129. Shortly after my assessment his blood pressure went back up to 240s over 120s. His CBC is unremarkable at this time. His BUN and creatinine are consistent with his chronic kidney disease. 08/04/18 18:[address] of the head is negative for any intracranial abnormalities. His chest x-ray is negative for any infiltrates. I spoke with Dr. Larkin in regards to this patient's case. He will be admitted to ICU since he is on a nicardipine drip. - Vital Signs Vital signs: Temp Pulse Resp BP Pulse Ox 97.9 F 80 16 202/129 H 97 08/04/18 14:24 08/04/18 14:24 08/04/18 14:24 08/04/18 16:45 08/04/18 14:24 - Laboratory Result Diagrams: 08/04/18 15:25 08/04/18 15:25 Laboratory results interpreted by me: 08/04/18 08/04/18 15:25 15:25 RBC 3.90 L Hgb 12.3 L Hct 36.1 L Chloride 110 H BUN 54 H Creatinine 2.96 H Est GFR ( Amer) 26 L Est GFR (Non-Af Amer) 22 L Glucose 117 H Total Protein 5.9 L - EKG Interpretation by Me Additional EKG results interpreted by me: 08/04/18 Sinus rhythm. Rate 77. DC 204; QRS 108; QT 404; QTC 458. No ST elevations or depressions. No change from prior EKG on 07/30/2017. Discharge - Discharge Clinical Impression: Hypertensive urgency Condition: Stable Disposition: ADMITTED INPATIENT Admitting Provider: Hospitalist Unit Admitted: ICU Referrals: JOANN ARELLANO MD [Primary Care Provider] - Follow up as needed
[2018-08-04] MEDS ORDERED: ONDANSETRON HCL INJ/PF 4 MG/2 ML SDV IV ONE (16:50)
[2018-08-04] MEDS ORDERED: ACETAMINOPHEN 325 MG TABLET PO ONE (16:55)
--- NOTE | 2018-08-04 17:34 | RADIOLOGY REPORT (SQ) ---
EXAM DESCRIPTION: CT HEAD WITHOUT COMPLETED DATE/TIME: 08/04/2018 5:23 pm REASON FOR STUDY: headache; increased BP COMPARISON: None. TECHNIQUE: Axial images acquired through the brain without intravenous contrast. Images reviewed wi th bone, brain and subdural windows. Additional sagittal and coronal reconstructions were generated. Images stored on PACS. All CT scanners at this facility use dose modulation, iterative reconstruction, and/or weight based d osing when appropriate to reduce radiation dose to as low as reasonably achievable (ALARA). [facility]: Dose Right [facility]: CareDose [facility]: Dose Right [facility]: Teradose 4D [facility]: Smart EduRise RADIATION DOSE: CT Rad equipment meets quality standard of care and radiation dose reduction techniq ues were employed. CTDIvol: 53.2 mGy. DLP: 1070 mGy-cm. mGy. LIMITATIONS: None. FINDINGS: VENTRICLES: Prominent. CEREBRUM: No masses. No hemorrhage. No midline shift. Areas of low density in the white matter mos t likely due to chronic micro-vascular ischemic change. No evidence for acute infarction. CEREBELLUM: No masses. No hemorrhage. No alteration of density. No evidence for acute infarction. EXTRAAXIAL SPACES: Mild age-related involutional change. No fluid collections. No masses. ORBITS AND GLOBE: No intra- or extraconal masses. Normal contour of globe without masses. CALVARIUM: No fracture. PARANASAL SINUSES: No fluid or mucosal thickening. SOFT TISSUES: No mass or hematoma. OTHER: No other significant finding. IMPRESSION: MILD CHRONIC CHANGES OF ATROPHY AND MICROVASCULAR ISCHEMIA. NO ACUTE PROCESS. EVIDENCE OF ACUTE STROKE: NO. TECHNICAL DOCUMENTATION: JOB ID: [id number] Quality ID # [id number]: Final reports with documentation of one or more dose reduction techniques (e.g., Au tomated exposure control, adjustment of the mA and/or kV according to patient size, use of iterative reconstruction technique) 2010 [employer]- All Rights Reserved Reading location - IP/workstation name: [email or web address]
[2018-08-04] MEDS: NICARDIPINE HCL RTU, ISO-OS 20 MG/200 ML RTUINJ IV PRN ×2 (17:39→19:52)
--- NOTE | 2018-08-04 17:56 | EKG REPORT ---
SEVERITY:- ABNORMAL ECG - SINUS RHYTHM LEFT ANTERIOR FASCICULAR BLOCK PROBABLE LEFT VENTRICULAR HYPERTROPHY : Confirmed by: Cj Busch MD 04-Aug-2018 17:54:57
[2018-08-04] MEDS ORDERED: ACETAMINOPHEN 325 MG TABLET PO PRN (19:20)
[2018-08-04] MEDS ORDERED: ONDANSETRON HCL INJ/PF 4 MG/2 ML SDV IV PRN (19:20)
[2018-08-04] MEDS ORDERED: ONDANSETRON 4 MG TAB.RAPDIS PO PRN (19:20)
[2018-08-04] MEDS: HEPARIN SOD (PORCINE) 5,000 UNIT/ML 1 ML SYRINGE SUBCUT SCH (23:52)
[2018-08-05] MEDS: OXYCODONE-ACETAMINOPHEN 5-325 MG TABLET PO PRN ×3 (00:17→22:12)
[2018-08-05] MEDS: NICARDIPINE HCL RTU, ISO-OS 20 MG/200 ML RTUINJ IV PRN ×9 (00:39→22:19)
[2018-08-05] MEDS ORDERED: METOPROLOL TARTRATE PF/INJ 5 MG/5 ML SDV IV ONE (01:03)
[2018-08-05] MEDS: METOPROLOL TARTRATE PF/INJ 5 MG/5 ML SDV IV PRN ×3 (01:18→01:51)
[2018-08-05] MEDS: METOPROLOL TARTRATE 100 MG TABLET PO SCH ×3 (01:52→17:15)
[2018-08-05] MEDS: ROPINIROLE HCL 1 MG TABLET PO PRN ×2 (01:53→22:13)
[2018-08-05] MEDS: HEPARIN SOD (PORCINE) 5,000 UNIT/ML 1 ML SYRINGE SUBCUT SCH ×3 (05:14→22:11)
[2018-08-05] MEDS: LANSOPRAZOLE 15 MG TAB.RAP.DR PO SCH ×2 (05:14→17:15)
[2018-08-05 06:10] LABS: ANION GAP 6 (5-19); BLOOD UREA NITROGEN 49 mg/dL (7-20); CALCIUM 8.5 mg/dL (8.4-10.2); CARBON DIOXIDE 24 mmol/L (22-30); CHLORIDE 112 mmol/L (98-107); CHOLESTEROL 165.05 mg/dL (0-200); GLUCOSE 121 mg/dL (75-110); POTASSIUM 4.3 mmol/L (3.6-5.0); SODIUM 141.8 mmol/L (137-145); TRIGLYCERIDES 407 mg/dL (<150)
[2018-08-05 06:21] LABS: DIRECT LDL 59 mg/dL (<100)
--- NOTE | 2018-08-05 07:39 | EKG REPORT ---
SEVERITY:- ABNORMAL ECG - SINUS RHYTHM OLD INFERIOR OH PROBABLE LEFT VENTRICULAR HYPERTROPHY : Confirmed by: Cj Busch MD 05-Aug-2018 07:38:45
[2018-08-05] MEDS ORDERED: HYDROCODONE/ACETAMINOPHEN 7.5-325 MG TABLET PO PRN (09:20)
[2018-08-05] MEDS ORDERED: (PENDING PHARMACY ID) (Potassium Chloride [Klor-Con M20] 20 MEQ) PO SCH (10:00)
[2018-08-05] MEDS ORDERED: AMLODIPINE BESYLATE 10 MG TABLET PO SCH (10:00)
[2018-08-05] MEDS: POTASSIUM CHLORIDE 10 MEQ CAPSULE.ER PO SCH (10:25)
[2018-08-05] MEDS: LISINOPRIL 10 MG TABLET PO SCH (10:25)
[2018-08-05] MEDS: COLCHICINE 0.6 MG TABLET PO SCH (13:41)
[2018-08-05] MEDS ORDERED: DEXTROSE 40% GEL 15 GM TUBE PO PRN ×2 (14:01)
[2018-08-05] MEDS ORDERED: DEXTROSE 50%-WATER 25 GM/50 ML DISP.SYRIN IV PRN ×2 (14:01)
[2018-08-05] MEDS ORDERED: GLUCAGON,HUMAN RECOMB 1 MG INJ IM PRN (14:01)
[2018-08-05] MEDS ORDERED: LORAZEPAM 1 MG TABLET PO PRN (14:06)
[2018-08-05] MEDS ORDERED: AMLODIPINE BESYLATE 5 MG TABLET PO ONE (15:00)
[2018-08-05] MEDS ORDERED: ENALAPRILAT DIHYDRATE INJ/PF 1.25 MG/1 ML SDV IV ONE ×2 (15:00→16:48)
[2018-08-05] MEDS: INSULIN LISPRO 100 UNIT/ML 3 ML VIAL SUBCUT SCH ×3 (17:14→22:11)
[2018-08-05] MEDS: HYDRALAZINE HCL INJ/PF 20 MG/1 ML SDV IV PRN (18:00)
[2018-08-05] MEDS: HYDRALAZINE HCL 10 MG TABLET PO SCH ×2 (18:01→23:45)
--- NOTE | 2018-08-05 20:54 | PDOC H&P ---
History of Present Illness Admission Date/PCP: 08/04/18 18:31 JOANN ARELLANO MD Patient complains of: Uncontrolled hypertension History of Present Illness: CLARI TSAI JR is a 58 year old male with a history of hypertension, chronic kidney disease, diabetes mellitus, acid reflux, peripheral neuropathy and anxiety. He was just hospitalized in June for the hypertension issues. He is seeing nephrology as well as his primary care physician sandra moy. On admission his blood pressure was 248/122. He has been experiencing headaches and lack of sleep. These are typically symptoms that occur when his blood pressure is out of control. He was placed on a Cardene infusion. He was referred to the hospitalist service for admission Past Medical History Cardiac Medical History: Reports: Hyperlipidema, Hypertension Denies: Coronary Artery Disease, Myocardial Infarction Pulmonary Medical History: Reports: Asthma - no episodes in "quite awhile", Chronic Obstructive Pulmonary Disease (COPD), Sleep Apnea Denies: Bronchitis, Pneumonia Neurological Medical History: Denies: Seizures Endocrine Medical History: Reports: Diabetes Mellitus Type 2 GI Medical History: Reports: Gastroesophageal Reflux Disease Musculoskeltal Medical History: Reports: Arthritis - hands, Gout Skin Medical History: Reports: Eczema Psychiatric Medical History: Reports: Depression Hematology: Denies: Anemia Past Surgical History Past Surgical History: Reports: Appendectomy, Tonsillectomy, Other - bilateral cataract extraction with insertion of lens Social History Information Source: Patient, Relative Lives with: Family Smoking Status: Never Smoker Frequency of Alcohol Use: None Hx Recreational Drug Use: No Drugs: None Hx Prescription Drug Abuse: No - Advance Directive Resuscitation Status: Full Code Surrogate healthcare decision maker:: The patient does not have a formal healthcare proxy document however his would be the designated decision maker. Family History Family History: CAD, Other - Renal failure Parental Family History Reviewed: Yes Children Family History Reviewed: Yes Sibling(s) Family History Reviewed.: Yes Medication/Allergy Home Medications: Amlodipine Besylate [Norvasc 10 mg Tablet] 10 mg PO DAILY 08/04/18 Atorvastatin Calcium [Lipitor 80 mg Tablet] 80 mg PO DAILY 08/04/18 Clonazepam [Klonopin 1 mg Tablet] 1 mg PO QHS 08/04/18 Colchicine [Colcrys 0.6 mg Tablet] 0.6 mg PO DAILY 08/04/18 Hydrocodone/Acetaminophen [Lorcet Plus 7.5-325 mg Tablet] 1 tab PO Q8HP PRN 08/04/18 Lisinopril [Prinivil 40 mg Tablet] 40 mg PO DAILY 08/04/18 Meloxicam [Mobic] 15 mg PO DAILY 08/04/18 Ondansetron HCl [Zofran 8 mg Tablet] 8 mg PO Q8HP PRN 08/04/18 Potassium Chloride [Klor-Con M20] 20 meq PO DAILY 08/04/18 Allergies/Adverse Reactions: povidone-iodine [From Betadine] Allergy (Severe, Verified 06/03/17 13:23) Generalized rash Soap [From Betadine] Allergy (Severe, Verified 06/03/17 13:23) Generalized rash Review of Systems Constitutional: PRESENT: anorexia, headache(s), weight loss Eyes: ABSENT: visual disturbances Ears: ABSENT: hearing changes Nose, Mouth, and Throat: ABSENT: mouth pain, sore throat Cardiovascular: ABSENT: chest pain, palpitations Gastrointestinal: PRESENT: diarrhea, heartburn, nausea Genitourinary: ABSENT: dysuria, hematuria Integumentary: ABSENT: lesions, rash Neurological: ABSENT: abnormal gait, abnormal speech, memory loss, tremor(s) Psychiatric: PRESENT: anxiety. ABSENT: hallucinations Endocrine: ABSENT: cold intolerance, heat intolerance Hematologic/Lymphatic: ABSENT: easy bruising, lymphadenopathy Physical Exam Vital Signs: Temp Pulse Resp BP Pulse Ox 97.9 F 80 15 209/104 H 98 08/04/18 14:24 08/04/18 14:24 08/04/18 19:04 08/04/18 19:04 08/04/18 19:04 Intake & Output 08/03/18 08/04/18 08/05/18 06:59 06:59 06:59 Intake Total 4 Balance 4 Weight 123.3 kg General appearance: PRESENT: mild distress, morbidly obese, well-developed Head exam: PRESENT: normocephalic Eye exam: PRESENT: conjunctiva pink, EOMI. ABSENT: scleral icterus Ear exam: PRESENT: normal external ear exam Mouth exam: PRESENT: moist, tongue midline Neck exam: PRESENT: full ROM. ABSENT: carotid bruit, lymphadenopathy Respiratory exam: PRESENT: clear to auscultation octavia, symmetrical. ABSENT: accessory muscle use, rales, rhonchi, unlabored, wheezes Cardiovascular exam: PRESENT: RRR, +S1, +S2, systolic murmur - 1/6 GI/Abdominal exam: PRESENT: normal bowel sounds, soft. ABSENT: distended, tenderness Rectal exam: PRESENT: deferred Gentrourinary exam: ABSENT: indwelling catheter Extremities exam: PRESENT: pedal edema Neurological exam: PRESENT: alert, awake, oriented to person, oriented to place, oriented to time, oriented to situation, CN II-XII grossly intact Psychiatric exam: PRESENT: anxious Results Laboratory Results: 08/04/18 15:25 08/04/18 15:25 08/04/18 08/04/18 15:25 15:25 WBC 9.6 RBC 3.90 L Hgb 12.3 L Hct 36.1 L MCV 93 MCH 31.6 MCHC 34.1 RDW 13.6 Plt Count 217 Seg Neutrophils % 71.9 Lymphocytes % 20.7 Monocytes % 5.1 Eosinophils % 1.6 Basophils % 0.7 Absolute Neutrophils 6.9 Absolute Lymphocytes 2.0 Absolute Monocytes 0.5 Absolute Eosinophils 0.2 Absolute Basophils 0.1 Sodium 142.2 Potassium 4.7 Chloride 110 H Carbon Dioxide 25 Anion Gap 7 BUN 54 H Creatinine 2.96 H Est GFR ( Amer) 26 L Est GFR (Non-Af Amer) 22 L Glucose 117 H Calcium 8.8 Total Bilirubin 0.8 AST 28 ALT 39 Alkaline Phosphatase 72 Total Protein 5.9 L Albumin 3.8 08/04/18 15:25 Troponin I 0.025 Impressions: Chest X-Ray 08/04/18 14:56 IMPRESSION: NO ACUTE RADIOGRAPHIC FINDING IN THE CHEST. Head CT 08/04/18 17:10 IMPRESSION: MILD CHRONIC CHANGES OF ATROPHY AND MICROVASCULAR ISCHEMIA. NO ACUTE PROCESS. EVIDENCE OF ACUTE STROKE: NO. Assessment & Plan - Diagnosis (1) Hypertensive urgency Is this a current diagnosis for this admission?: Yes Plan: The patient is still having headaches. He is on a Cardene drip. He will be admitted to the intensive care unit. He is not sure of his medications and when pharmacy reconcile his medications we will add his chronic antihypertensives back to his regimen. Unfortunately due to insurance issues he cannot always take all of the prescribed medications. In addition to his primary care, nephrology helps manage his hypertension and chronic kidney failure. (2) CKD (chronic kidney disease) stage 4, GFR 15-29 ml/min Is this a current diagnosis for this admission?: Yes Plan: Chronic and most likely secondary to the hypertension. Diabetes mellitus likely contributing as well. He appears to be at his baseline. If function declines we will consult nephrology. (3) Diabetes mellitus type 2 in obese Is this a current diagnosis for this admission?: Yes Plan: Will place him on a sliding scale. He takes Lantus as well. He usually uses short acting insulin with meals and Lantus at night. We will confirm his raman men and initiate therapy. We will check hemoglobin A1c. (4) Headache Qualifiers: Headache type: unspecified Headache chronicity pattern: acute headache Intractability: intractable Qualified Code(s): R51 - Headache Is this a current diagnosis for this admission?: Yes Plan: The patient reports that he knows his blood pressure is high because of his headache. Analgesia will be available but primary treatment will be to reduce his blood pressure. (5) Class 2 obesity with body mass index (BMI) of 37.0 to 37.9 in adult Qualifiers: Obesity type: due to excess calories Serious obesity comorbidity presence: with serious comorbidity Qualified Code(s): E66.01 - Morbid (severe) obesity due to excess calories; Z68.37 - Body mass index (BMI) 37.0-37.9, adult Is this a current diagnosis for this admission?: Yes Plan: The patient will be on a diabetic cardiac diet. We will encourage lifestyle modification. - Time Time Spent: Greater than 70 Minutes Medications reviewed and adjusted accordingly: Yes Anticipated discharge: Home
--- NOTE | 2018-08-05 21:02 | PDOC PROGRESS REPORT ---
Subjective Progress Note for:: 08/05/18 Subjective:: Still requires Cardene drip. Despite still elevated blood pressure he does report feeling better. He does not have a headache anymore. Reason For Visit: HYPERTENSIVE URGENCY Physical Exam Vital Signs: Temp Pulse Resp BP Pulse Ox 97.6 F 69 16 166/93 H 97 08/05/18 16:00 08/05/18 16:00 08/05/18 16:56 08/05/18 16:56 08/05/18 16:56 Intake & Output 08/04/18 08/05/18 08/06/18 06:59 06:59 06:59 Intake Total 924 778 Output Total 750 350 Balance 174 428 Weight 124.1 kg General appearance: PRESENT: no acute distress, cooperative, obese, well- developed Head exam: PRESENT: normocephalic Eye exam: PRESENT: conjunctiva pale. ABSENT: scleral icterus Mouth exam: PRESENT: dry mucosa, tongue midline Respiratory exam: PRESENT: clear to auscultation octavia, symmetrical, unlabored. ABSENT: rales, rhonchi, wheezes Cardiovascular exam: PRESENT: RRR, +S1, +S2, systolic murmur - 1/6 GI/Abdominal exam: PRESENT: normal bowel sounds, soft. ABSENT: distended, tende rness Rectal exam: PRESENT: deferred Gentrourinary exam: ABSENT: indwelling catheter Extremities exam: PRESENT: pedal edema Neurological exam: PRESENT: alert, awake, oriented to person, oriented to place, oriented to time, oriented to situation, CN II-XII grossly intact Psychiatric exam: PRESENT: flat affect. ABSENT: agitated, anxious Results Laboratory Results: 08/04/18 15:25 08/05/18 05:33 08/05/18 05:33 Sodium 141.8 Potassium 4.3 Chloride 112 H Carbon Dioxide 24 Anion Gap 6 BUN 49 H Creatinine 2.88 H Est GFR ( Amer) 27 L Est GFR (Non-Af Amer) 22 L Glucose 121 H Calcium 8.5 Magnesium 1.6 Triglycerides 407 H Cholesterol 165.05 LDL Cholesterol Direct 59 VLDL Cholesterol UNABLE TO CALCULATE HDL Cholesterol 35 L 08/04/18 15:25 Troponin I 0.025 Impressions: Chest X-Ray 08/04/18 14:56 IMPRESSION: NO ACUTE RADIOGRAPHIC FINDING IN THE CHEST. Head CT 08/04/18 17:10 IMPRESSION: MILD CHRONIC CHANGES OF ATROPHY AND MICROVASCULAR ISCHEMIA. NO ACUTE PROCESS. EVIDENCE OF ACUTE STROKE: NO. Assessment & Plan - Diagnosis (1) Hypertensive urgency Is this a current diagnosis for this admission?: Yes Plan: The patient still requires Cardene infusion. We have resumed his home medication regimen. I have added hydralazine as well. We will continue to kathie tor blood pressure. Continue to adjust medications. You may need to involve nephrology to help with blood pressure management. (3) CKD (chronic kidney disease) stage 4, GFR 15-29 ml/min Is this a current diagnosis for this admission?: Yes Plan: GFR still remains in the mid 20 range. Continue to manage blood pressure and diabetes and monitor renal function. (4) Diabetes mellitus type 2 in obese Is this a current diagnosis for this admission?: Yes Plan: The patient's hemoglobin A1c was actually quite good. His regimen is 25 units of NovoLog with meals and 10 units of Lantus at night. His appetite is not very good at this time. I will decrease the mealtime dose and use Humalog. In addition there will be a sliding scale added. We will continue his Lantus in the evening. (5) Class 2 obesity with body mass index (BMI) of 37.0 to 37.9 in adult Qualifiers: Obesity type: due to excess calories Serious obesity comorbidity presence: with serious comorbidity Qualified Code(s): E66.01 - Morbid (severe) obesity due to excess calories; Z68.37 - Body mass index (BMI) 37.0-37.9, adult Is this a current diagnosis for this admission?: Yes Plan: The patient will be on a diabetic cardiac diet. We will encourage lifestyle modification. (6) Hypertriglyceridemia Is this a current diagnosis for this admission?: Yes Plan: The patient is now on atorvastatin 80 mg daily. We will consider secondary therapy for his triglycerides. Would benefit from lifestyle modification and weight loss. - Time Time Spent with patient: 25-34 minutes Medications reviewed and adjusted accordingly: Yes Anticipated discharge: Home
[2018-08-05] MEDS: ATORVASTATIN CALCIUM 80 MG TABLET PO SCH (22:12)
[2018-08-05] MEDS: CLONAZEPAM 1 MG TABLET PO SCH (22:13)
[2018-08-05] MEDS: AMLODIPINE BESYLATE 10 MG TABLET PO SCH (22:13)
[2018-08-05] MEDS: INSULIN GLARGINE,HUM.REC.ANLOG 300 UNIT/3 ML INSULN.PEN SUBCUT SCH (22:14)
[2018-08-06] MEDS: NICARDIPINE HCL RTU, ISO-OS 20 MG/200 ML RTUINJ IV PRN (00:03)
[2018-08-06] MEDS: METOPROLOL TARTRATE 100 MG TABLET PO SCH ×3 (01:48→18:13)
[2018-08-06] MEDS: LANSOPRAZOLE 15 MG TAB.RAP.DR PO SCH ×2 (05:26→16:00)
[2018-08-06] MEDS: HYDRALAZINE HCL 10 MG TABLET PO SCH ×3 (05:26→18:13)
[2018-08-06] MEDS: HEPARIN SOD (PORCINE) 5,000 UNIT/ML 1 ML SYRINGE SUBCUT SCH ×3 (05:27→21:46)
[2018-08-06 05:48] LABS: ALBUMIN 3.1 g/dL (3.5-5.0); BLOOD UREA NITROGEN 53 mg/dL (7-20); CALCIUM 8.3 mg/dL (8.4-10.2); GLUCOSE 127 mg/dL (75-110); PHOSPHORUS 4.8 mg/dL (2.5-4.5); POTASSIUM 4.4 mmol/L (3.6-5.0)
[2018-08-06 05:53] LABS: CARBON DIOXIDE 27 mmol/L (22-30); CHLORIDE 106 mmol/L (98-107); SODIUM 136.8 mmol/L (137-145)
[2018-08-06 05:55] LABS: ANION GAP 4 (5-19)
[2018-08-06] MEDS: OXYCODONE-ACETAMINOPHEN 5-325 MG TABLET PO PRN ×2 (06:01→19:39)
[2018-08-06] MEDS: INSULIN LISPRO 100 UNIT/ML 3 ML VIAL SUBCUT SCH ×7 (07:36→21:45)
[2018-08-06] MEDS: POTASSIUM CHLORIDE 10 MEQ CAPSULE.ER PO SCH (09:17)
[2018-08-06] MEDS: AMLODIPINE BESYLATE 10 MG TABLET PO SCH ×2 (09:18→21:45)
[2018-08-06] MEDS: COLCHICINE 0.6 MG TABLET PO SCH (09:18)
[2018-08-06] MEDS: LISINOPRIL 10 MG TABLET PO SCH (09:19)
[2018-08-06] MEDS: HYDRALAZINE HCL INJ/PF 20 MG/1 ML SDV IV PRN (12:57)
[2018-08-06] MEDS ORDERED: ENALAPRILAT DIHYDRATE INJ/PF 1.25 MG/1 ML SDV IV PRN (15:01)
--- NOTE | 2018-08-06 17:14 | PDOC PROGRESS REPORT ---
Subjective Progress Note for:: 08/06/18 Subjective:: No overnight events. Cardene GTT was stopped at 3am on 08/06 with stabilization of BP. This AM patient complained of mild nausea that was improved with IV Zofran. Otherwise no other major complaints. SBP has been borderline elevated for majority of the day. No other complaints currently. Reason For Visit: HYPERTENSIVE URGENCY Physical Exam Vital Signs: Temp Pulse Resp BP Pulse Ox 97.7 F 78 16 179/90 H 93 08/06/18 16:00 08/06/18 16:00 08/06/18 16:18 08/06/18 16:18 08/06/18 16:18 Intake & Output 08/05/18 08/06/18 08/07/18 06:59 06:59 06:59 Intake Total 924 1668 1005 Output Total 750 1000 57597 Balance 174 668 -9504 Weight 124.1 kg 124.2 kg General appearance: PRESENT: no acute distress, disheveled, obese Mouth exam: PRESENT: moist Respiratory exam: PRESENT: unlabored. ABSENT: tachypnea, wheezes Cardiovascular exam: PRESENT: +S1, +S2. ABSENT: tachycardia GI/Abdominal exam: PRESENT: soft. ABSENT: tenderness Neurological exam: PRESENT: alert, awake, CN II-XII grossly intact Psychiatric exam: PRESENT: flat affect Skin exam: PRESENT: dry, intact Results Laboratory Results: 08/04/18 15:25 08/06/18 05:16 08/06/18 05:16 Sodium 136.8 L Potassium 4.4 Chloride 106 Carbon Dioxide 27 Anion Gap 4 L BUN 53 H Creatinine 3.13 H Est GFR ( Amer) 25 L Est GFR (Non-Af Amer) 20 L Glucose 127 H Calcium 8.3 L Phosphorus 4.8 H Albumin 3.1 L 08/04/18 15:25 Troponin I 0.025 Impressions: Chest X-Ray 08/04/18 14:56 IMPRESSION: NO ACUTE RADIOGRAPHIC FINDING IN THE CHEST. Head CT 08/04/18 17:10 IMPRESSION: MILD CHRONIC CHANGES OF ATROPHY AND MICROVASCULAR ISCHEMIA. NO ACUTE PROCESS. EVIDENCE OF ACUTE STROKE: NO. Assessment & Plan - Diagnosis (1) Hypertensive urgency Is this a current diagnosis for this admission?: Yes (2) Class 2 obesity with body mass index (BMI) of 37.0 to 37.9 in adult Qualifiers: Obesity type: due to excess calories Serious obesity comorbidity presence: with serious comorbidity Qualified Code(s): E66.01 - Morbid (severe) obesity due to excess calories; Z68.37 - Body mass index (BMI) 37.0-37.9, adult Is this a current diagnosis for this admission?: Yes Plan: BP's are better controlled overall but still difficult to control - Cardene drip discontinued this morning - Home medications restarted - Started IV Vasotec PRN; will need to use judiciously give low CrCl. Also has IV Hydralazine PRN - IF BP remain stable, will move out of ICU on 2/24 AM (3) Anemia in chronic kidney disease (CKD) Qualifiers: Chronic kidney disease stage: stage 3 (moderate) Qualified Code(s): N18.3 - Chronic kidney disease, stage 3 (moderate); D63.1 - Anemia in chronic kidney disease Is this a current diagnosis for this admission?: Yes Plan: Stable, CTM (4) CKD (chronic kidney disease) stage 3, GFR 30-59 ml/min Is this a current diagnosis for this admission?: Yes Plan: Would benefit from Nephrology support particularly with difficult to control HTN - Time Time Spent with patient: 15-24 minutes
[2018-08-06] MEDS ORDERED: LOSARTAN POTASSIUM 50 MG TABLET PO ONE (18:11)
[2018-08-06] MEDS: ATORVASTATIN CALCIUM 80 MG TABLET PO SCH (21:45)
[2018-08-06] MEDS: CLONAZEPAM 1 MG TABLET PO SCH (21:45)
[2018-08-07] MEDS: HYDRALAZINE HCL 10 MG TABLET PO SCH ×4 (00:33→18:33)
[2018-08-07] MEDS: INSULIN GLARGINE,HUM.REC.ANLOG 300 UNIT/3 ML INSULN.PEN SUBCUT SCH ×2 (00:34→21:37)
[2018-08-07] MEDS: METOPROLOL TARTRATE 100 MG TABLET PO SCH ×3 (01:22→18:33)
[2018-08-07 04:23] LABS: ANION GAP 8 (5-19); BLOOD UREA NITROGEN 56 mg/dL (7-20); CALCIUM 8.3 mg/dL (8.4-10.2); CARBON DIOXIDE 22 mmol/L (22-30); CHLORIDE 109 mmol/L (98-107); GLUCOSE 120 mg/dL (75-110); POTASSIUM 4.4 mmol/L (3.6-5.0); SODIUM 138.7 mmol/L (137-145)
[2018-08-07] MEDS: HEPARIN SOD (PORCINE) 5,000 UNIT/ML 1 ML SYRINGE SUBCUT SCH ×3 (05:31→21:37)
[2018-08-07] MEDS: LANSOPRAZOLE 15 MG TAB.RAP.DR PO SCH ×2 (05:31→18:33)
[2018-08-07] MEDS: OXYCODONE-ACETAMINOPHEN 5-325 MG TABLET PO PRN (05:58)
[2018-08-07] MEDS: INSULIN LISPRO 100 UNIT/ML 3 ML VIAL SUBCUT SCH ×7 (09:04→21:37)
[2018-08-07] MEDS ORDERED: LOSARTAN POTASSIUM 50 MG TABLET PO SCH (10:00)
[2018-08-07] MEDS: LISINOPRIL 10 MG TABLET PO SCH (12:13)
[2018-08-07] MEDS: COLCHICINE 0.6 MG TABLET PO SCH (12:13)
[2018-08-07] MEDS: POTASSIUM CHLORIDE 10 MEQ CAPSULE.ER PO SCH (12:14)
[2018-08-07] MEDS: AMLODIPINE BESYLATE 10 MG TABLET PO SCH ×2 (12:15→21:38)
--- NOTE | 2018-08-07 15:05 | PDOC PROGRESS REPORT ---
Subjective Progress Note for:: 08/07/18 Subjective:: No overnight events. Has remained off Cardene GTT since 08/06. Better control of BP however remains elevated. No other complaints currently. Transfer out of ICU today. Reason For Visit: HYPERTENSIVE URGENCY Physical Exam Vital Signs: Temp Pulse Resp BP Pulse Ox 97.8 F 77 14 168/108 H 98 08/07/18 12:00 08/07/18 12:00 08/07/18 12:00 08/07/18 12:00 08/07/18 12:00 Intake & Output 08/06/18 08/07/18 08/08/18 06:59 06:59 06:59 Intake Total 1668 1005 237 Output Total 1000 08023 200 Balance 668 -71807 37 Weight 124.2 kg 125.5 kg General appearance: PRESENT: no acute distress, cooperative, obese, other - Rest ing comfortably Head exam: PRESENT: atraumatic Mouth exam: PRESENT: moist Respiratory exam: PRESENT: unlabored. ABSENT: tachypnea Cardiovascular exam: PRESENT: +S1, +S2. ABSENT: tachycardia GI/Abdominal exam: PRESENT: soft. ABSENT: tenderness Neurological exam: PRESENT: alert, awake, CN II-XII grossly intact Psychiatric exam: PRESENT: flat affect Skin exam: PRESENT: dry Results Laboratory Results: 08/04/18 15:25 08/07/18 03:54 08/07/18 03:54 Sodium 138.7 Potassium 4.4 Chloride 109 H Carbon Dioxide 22 Anion Gap 8 BUN 56 H Creatinine 2.98 H Est GFR ( Amer) 26 L Est GFR (Non-Af Amer) 22 L Glucose 120 H Calcium 8.3 L 08/04/18 15:25 Troponin I 0.025 Impressions: Chest X-Ray 08/04/18 14:56 IMPRESSION: NO ACUTE RADIOGRAPHIC FINDING IN THE CHEST. Head CT 08/04/18 17:10 IMPRESSION: MILD CHRONIC CHANGES OF ATROPHY AND MICROVASCULAR ISCHEMIA. NO ACUTE PROCESS. EVIDENCE OF ACUTE STROKE: NO. Assessment & Plan - Diagnosis (1) Hypertensive urgency Is this a current diagnosis for this admission?: Yes Plan: Presented with elevated BP. Noted to have medication non-compliance at home. - Initially required Cardene infusion, now discontinued as of 08/06 - Home medications continued including Lisinopril, Norvasc - Also has Lopressor PO, IV Vasotec PRN, and IV Hydralazine PRN - Given stable BP, orders placed for transfer out of 08/07 (2) Class 2 obesity with body mass index (BMI) of 37.0 to 37.9 in adult Qualifiers: Obesity type: due to excess calories Serious obesity comorbidity presence: with serious comorbidity Qualified Code(s): E66.01 - Morbid (severe) obesity due to excess calories; Z68.37 - Body mass index (BMI) 37.0-37.9, adult Is this a current diagnosis for this admission?: Yes Plan: encouraged weight loss and exercise (3) Anemia in chronic kidney disease (CKD) Qualifiers: Chronic kidney disease stage: stage 3 (moderate) Qualified Code(s): N18.3 - Chronic kidney disease, stage 3 (moderate); D63.1 - Anemia in chronic kidney disease Is this a current diagnosis for this admission?: Yes Plan: Given a lab holiday - Will check labs on 08/08 (4) CKD (chronic kidney disease) stage 3, GFR 30-59 ml/min Is this a current diagnosis for this admission?: Yes Plan: Would benefit from Nephrology support particularly with difficult to control HTN - Time Time Spent with patient: Less than 15 minutes Disposition: Transfer out of ICU to telemetry floor
[2018-08-07] MEDS: ATORVASTATIN CALCIUM 80 MG TABLET PO SCH (21:38)
[2018-08-07] MEDS: ROPINIROLE HCL 1 MG TABLET PO PRN (21:38)
[2018-08-07] MEDS: CLONAZEPAM 1 MG TABLET PO SCH (21:39)
[2018-08-08] MEDS: METOPROLOL TARTRATE 100 MG TABLET PO SCH ×3 (01:13→17:16)
[2018-08-08] MEDS: HYDRALAZINE HCL INJ/PF 20 MG/1 ML SDV IV PRN ×2 (03:18→23:59)
[2018-08-08] MEDS: OXYCODONE-ACETAMINOPHEN 5-325 MG TABLET PO PRN ×2 (03:19→11:02)
[2018-08-08] MEDS: HYDRALAZINE HCL 10 MG TABLET PO SCH ×4 (05:51→17:16)
[2018-08-08] MEDS: HEPARIN SOD (PORCINE) 5,000 UNIT/ML 1 ML SYRINGE SUBCUT SCH ×3 (05:51→21:39)
[2018-08-08] MEDS: LANSOPRAZOLE 15 MG TAB.RAP.DR PO SCH ×2 (05:51→17:17)
[2018-08-08 07:22] LABS: HEMATOCRIT 34.8 % (37.9-51.0); MEAN CORPUSCULAR HEMOGLOBIN 31.4 pg (27.0-33.4); MEAN CORPUSCULAR HGB CONC 34.5 g/dL (32.0-36.0); MEAN CORPUSCULAR VOLUME 91 fl (80-97); PLATELET COUNT 198 10^3/uL (150-450); RED BLOOD COUNT 3.83 10^6/uL (4.35-5.55); RED CELL DISTRIBUTION WIDTH 13.7 % (11.5-14.0); WHITE BLOOD COUNT 8.2 10^3/uL (4.0-10.5)
[2018-08-08 07:48] LABS: ANION GAP 7 (5-19); BLOOD UREA NITROGEN 63 mg/dL (7-20); CALCIUM 8.6 mg/dL (8.4-10.2); CARBON DIOXIDE 23 mmol/L (22-30); CHLORIDE 109 mmol/L (98-107); GLUCOSE 116 mg/dL (75-110); POTASSIUM 4.5 mmol/L (3.6-5.0)
[2018-08-08] MEDS: INSULIN LISPRO 100 UNIT/ML 3 ML VIAL SUBCUT SCH ×7 (10:24→23:55)
[2018-08-08] MEDS: POTASSIUM CHLORIDE 10 MEQ CAPSULE.ER PO SCH (11:01)
[2018-08-08] MEDS: AMLODIPINE BESYLATE 10 MG TABLET PO SCH ×2 (11:01→21:39)
[2018-08-08] MEDS: LISINOPRIL 10 MG TABLET PO SCH (11:01)
[2018-08-08] MEDS: COLCHICINE 0.6 MG TABLET PO SCH (11:01)
--- NOTE | 2018-08-08 11:11 | PDOC PROGRESS REPORT ---
Subjective Progress Note for:: 08/08/18 Subjective:: 08/08/2018 this 58-year-old male admitted with hypertensive emergency he has also has a stage III kidney disease. He was initially in the ICU and transferred to medical floor yesterday. His blood pressure this morning is 155/74 prior to giving the blood pressure medications. No acute events in the last 24 hours. Patient is afebrile. Reason For Visit: HYPERTENSIVE URGENCY Physical Exam Vital Signs: Temp Pulse Resp BP Pulse Ox 97.5 F 66 15 155/74 H 98 08/08/18 07:20 08/08/18 08:00 08/08/18 07:20 08/08/18 07:20 08/08/18 07:20 Intake & Output 08/07/18 08/08/18 08/09/18 06:59 06:59 06:59 Intake Total 1005 1507 Output Total 16321 850 Balance -39607 657 Weight 125.5 kg 125.5 kg General appearance: PRESENT: no acute distress Head exam: PRESENT: atraumatic Eye exam: PRESENT: PERRLA Mouth exam: PRESENT: moist, tongue midline Neck exam: ABSENT: carotid bruit, JVD, lymphadenopathy, thyromegaly Respiratory exam: PRESENT: clear to auscultation octavia. ABSENT: rales, rhonchi, wheezes Cardiovascular exam: PRESENT: RRR. ABSENT: diastolic murmur, rubs, systolic murmur GI/Abdominal exam: PRESENT: normal bowel sounds, soft. ABSENT: distended, guarding, mass, organolmegaly, rebound, tenderness Extremities exam: PRESENT: full ROM. ABSENT: calf tenderness, clubbing, pedal edema Neurological exam: PRESENT: alert, awake, oriented to person, oriented to place, oriented to time, oriented to situation, CN II-XII grossly intact. ABSENT: motor sensory deficit Psychiatric exam: PRESENT: appropriate affect, normal mood. ABSENT: homicidal ideation, suicidal ideation Results Laboratory Results: 08/08/18 07:00 08/08/18 07:00 08/08/18 08/08/18 07:00 07:00 WBC 8.2 RBC 3.83 L Hgb 12.0 L Hct 34.8 L MCV 91 MCH 31.4 MCHC 34.5 RDW 13.7 Plt Count 198 Sodium 139.0 Potassium 4.5 Chloride 109 H Carbon Dioxide 23 Anion Gap 7 BUN 63 H Creatinine 3.04 H Est GFR ( Amer) 26 L Est GFR (Non-Af Amer) 21 L Glucose 116 H Calcium 8.6 08/04/18 15:25 Troponin I 0.025 Impressions: Chest X-Ray 08/04/18 14:56 IMPRESSION: NO ACUTE RADIOGRAPHIC FINDING IN THE CHEST. Head CT 08/04/18 17:10 IMPRESSION: MILD CHRONIC CHANGES OF ATROPHY AND MICROVASCULAR ISCHEMIA. NO ACUTE PROCESS. EVIDENCE OF ACUTE STROKE: NO. Assessment & Plan - Diagnosis (1) Hypertensive urgency Is this a current diagnosis for this admission?: Yes Plan: Presented with elevated BP. Noted to have medication non-compliance at home. - Initially required Cardene infusion, now discontinued as of 08/06 - Home medications continued including Lisinopril, Norvasc - Also has Lopressor PO, IV Vasotec PRN, and IV Hydralazine PRN - Given stable BP, orders placed for transfer out of 08/0708/08/2018-patient blood pressure today is 155/74. Patient was initially on Cardene infusion which was discontinued on 08/06. Presently is on lisinopril 40 mg p.o. daily, amlodipine 10 mg twice a day, hydralazine 10 mg p.o. every 6 hours. He is also on metoprolol 100 mg p.o. q. a.m. Plan is to continue the present management. (2) Class 2 obesity with body mass index (BMI) of 37.0 to 37.9 in adult Qualifiers: Obesity type: due to excess calories Serious obesity comorbidity presence: with serious comorbidity Qualified Code(s): E66.01 - Morbid (severe) obesity due to excess calories; Z68.37 - Body mass index (BMI) 37.0-37.9, adult Is this a current diagnosis for this admission?: Yes Plan: 08/08/2018-diet exercise weight loss and lifestyle modifications are discussed with the patient. BMI is more than 35. Dietary consult was requested. (3) Anemia in chronic kidney disease (CKD) Qualifiers: Chronic kidney disease stage: stage 3 (moderate) Qualified Code(s): N18.3 - Chronic kidney disease, stage 3 (moderate); D63.1 - Anemia in chronic kidney disease Is this a current diagnosis for this admission?: Yes Plan: 08/08/2018-patient is hemoglobin is 12. History of anemia of chronic disease. Hemoglobin is stable. Anemia may be secondary to chronic kidney disease. (4) CKD (chronic kidney disease) stage 3, GFR 30-59 ml/min Is this a current diagnosis for this admission?: Yes Plan: 08/08/2018 patient has history of stage III kidney disease. 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 Continue to provide supportive care. - Time Time Spent with patient: 15-24 minutes Medications reviewed and adjusted accordingly: Yes Anticipated discharge: Home
[2018-08-08] MEDS: CLONAZEPAM 1 MG TABLET PO SCH (21:39)
[2018-08-08] MEDS: ATORVASTATIN CALCIUM 80 MG TABLET PO SCH (21:39)
[2018-08-08] MEDS: INSULIN GLARGINE,HUM.REC.ANLOG 300 UNIT/3 ML INSULN.PEN SUBCUT SCH (23:56)
[2018-08-09] MEDS: METOPROLOL TARTRATE 100 MG TABLET PO SCH ×3 (01:20→17:11)
[2018-08-09] MEDS: HYDRALAZINE HCL 10 MG TABLET PO SCH ×5 (01:22→22:59)
[2018-08-09] MEDS: LANSOPRAZOLE 15 MG TAB.RAP.DR PO SCH ×2 (06:38→17:11)
[2018-08-09] MEDS: HEPARIN SOD (PORCINE) 5,000 UNIT/ML 1 ML SYRINGE SUBCUT SCH ×3 (06:39→22:51)
[2018-08-09] MEDS: HYDRALAZINE HCL INJ/PF 20 MG/1 ML SDV IV PRN ×3 (07:50→23:56)
[2018-08-09 08:34] LABS: ABSOLUTE LYMPHOCYTES (AUTO) 1.5 10^3/uL (0.5-4.7); ABSOLUTE MONOCYTES (AUTO) 0.8 10^3/uL (0.1-1.4); ABSOLUTE NEUT (AUTO) 6.9 10^3/uL (1.7-8.2); BASOPHILS % (AUTO) 0.4 % (0-2); EOSINOPHILS % (AUTO) 0.1 % (0-6); HEMATOCRIT 34.6 % (37.9-51.0); LYMPHOCYTES % (AUTO) 16.7 % (13-45); MEAN CORPUSCULAR HEMOGLOBIN 31.7 pg (27.0-33.4); MEAN CORPUSCULAR HGB CONC 34.6 g/dL (32.0-36.0); MEAN CORPUSCULAR VOLUME 92 fl (80-97); MONOCYTES % (AUTO) 8.2 % (3-13); PLATELET COUNT 177 10^3/uL (150-450); RED BLOOD COUNT 3.78 10^6/uL (4.35-5.55); RED CELL DISTRIBUTION WIDTH 13.7 % (11.5-14.0); SEGMENTED NEUTROPHILS % (AUTO) 74.6 % (42-78); TOTAL CELLS COUNTED % (AUTO) 100 %; WHITE BLOOD COUNT 9.3 10^3/uL (4.0-10.5)
[2018-08-09 08:54] LABS: ALANINE AMINOTRANSFERASE 44 U/L (21-72); ALBUMIN 2.9 g/dL (3.5-5.0); ALKALINE PHOSPHATASE 61 U/L (38-126); ANION GAP 9 (5-19); ASPARTATE AMINO TRANSFERASE 47 U/L (17-59); BILIRUBIN,DIRECT 0.3 mg/dL (0.0-0.4); BLOOD UREA NITROGEN 59 mg/dL (7-20); CARBON DIOXIDE 21 mmol/L (22-30); CHLORIDE 111 mmol/L (98-107); GLUCOSE 123 mg/dL (75-110); POTASSIUM 4.6 mmol/L (3.6-5.0); SODIUM 140.9 mmol/L (137-145)
[2018-08-09] MEDS: INSULIN LISPRO 100 UNIT/ML 3 ML VIAL SUBCUT SCH ×7 (10:26→22:42)
[2018-08-09] MEDS: LISINOPRIL 10 MG TABLET PO SCH (10:32)
[2018-08-09] MEDS: AMLODIPINE BESYLATE 10 MG TABLET PO SCH ×2 (10:32→22:51)
[2018-08-09] MEDS: COLCHICINE 0.6 MG TABLET PO SCH (10:33)
[2018-08-09] MEDS: POTASSIUM CHLORIDE 10 MEQ CAPSULE.ER PO SCH (10:33)
--- NOTE | 2018-08-09 12:57 | PDOC PROGRESS REPORT ---
Subjective Progress Note for:: 08/09/18 Subjective:: 08/08/2018 this 58-year-old male admitted with hypertensive emergency he has also has a stage III kidney disease. He was initially in the ICU and transferred to medical floor yesterday. His blood pressure this morning is 155/74 prior to giving the blood pressure medications. No acute events in the last 24 hours. Patient is afebrile. 08/09/[id number]-ivga-old male admitted with hypertensive emergency. Earlier this morning blood pressure is 200/101. Repeat blood pressure is 173/80. Latest blood pressure is 162/77. Patient complains of dizzy spells last night. Plan to place him on falls precautions. Started on minoxidil 2.5 mg p.o. twice daily. Continue to watch his blood pressures closely. Reason For Visit: HYPERTENSIVE URGENCY Physical Exam Vital Signs: Temp Pulse Resp BP Pulse Ox 99.5 F 72 18 162/79 H 96 08/09/18 11:15 08/09/18 11:15 08/09/18 11:15 08/09/18 11:15 08/09/18 11:15 Intake & Output 08/08/18 08/09/18 08/10/18 06:59 06:59 06:59 Intake Total 1507 530 Output Total 850 600 Balance 657 -70 Weight 125.5 kg 122.7 kg General appearance: PRESENT: no acute distress Head exam: PRESENT: atraumatic Eye exam: PRESENT: PERRLA Mouth exam: PRESENT: moist, tongue midline Neck exam: ABSENT: carotid bruit, JVD, lymphadenopathy, thyromegaly Respiratory exam: PRESENT: clear to auscultation octavia. ABSENT: rales, rhonchi, wheezes Cardiovascular exam: PRESENT: RRR. ABSENT: diastolic murmur, rubs, systolic murmur GI/Abdominal exam: PRESENT: normal bowel sounds, soft. ABSENT: distended, guarding, mass, organolmegaly, rebound, tenderness Extremities exam: PRESENT: full ROM. ABSENT: calf tenderness, clubbing, pedal edema Neurological exam: PRESENT: alert, awake, oriented to person, oriented to place, oriented to time, oriented to situation, CN II-XII grossly intact. ABSENT: motor sensory deficit Psychiatric exam: PRESENT: appropriate affect, normal mood. ABSENT: homicidal ideation, suicidal ideation Results Laboratory Results: 08/09/18 08:07 08/09/18 08:07 08/09/18 08/09/18 08:07 08:07 WBC 9.3 RBC 3.78 L Hgb 12.0 L Hct 34.6 L MCV 92 MCH 31.7 MCHC 34.6 RDW 13.7 Plt Count 177 Seg Neutrophils % 74.6 Lymphocytes % 16.7 Monocytes % 8.2 Eosinophils % 0.1 Basophils % 0.4 Absolute Neutrophils 6.9 Absolute Lymphocytes 1.5 Absolute Monocytes 0.8 Absolute Eosinophils 0.0 Absolute Basophils 0.0 Sodium 140.9 Potassium 4.6 Chloride 111 H Carbon Dioxide 21 L Anion Gap 9 BUN 59 H Creatinine 3.20 H Est GFR ( Amer) 24 L Est GFR (Non-Af Amer) 20 L Glucose 123 H Calcium 9.0 Magnesium 1.7 Total Bilirubin 1.0 AST 47 ALT 44 Alkaline Phosphatase 61 Total Protein 5.0 L Albumin 2.9 L 08/04/18 15:25 Troponin I 0.025 Impressions: Chest X-Ray 08/04/18 14:56 IMPRESSION: NO ACUTE RADIOGRAPHIC FINDING IN THE CHEST. Head CT 08/04/18 17:10 IMPRESSION: MILD CHRONIC CHANGES OF ATROPHY AND MICROVASCULAR ISCHEMIA. NO ACUTE PROCESS. EVIDENCE OF ACUTE STROKE: NO. Assessment & Plan - Diagnosis (1) Hypertensive urgency Is this a current diagnosis for this admission?: Yes Plan: Presented with elevated BP. Noted to have medication non-compliance at home. - Initially required Cardene infusion, now discontinued as of 08/06 - Home medications continued including Lisinopril, Norvasc - Also has Lopressor PO, IV Vasotec PRN, and IV Hydralazine PRN - Given stable BP, orders placed for transfer out of 08/0708/08/2018-patient blood pressure today is 155/74. Patient was initially on Cardene infusion which was discontinued on 08/06. Presently is on lisinopril 40 mg p.o. daily, amlodipine 10 mg twice a day, hydralazine 10 mg p.o. every 6 hours. He is also on metoprolol 100 mg p.o. q. a.m. Plan is to continue the present management. 08/09/2018-patient blood pressure this morning is 200/100 and repeat one is 173/80 and latest blood pressure reading is 163/77. Presently on amlodipine 10 mg twice daily, hydralazine 10 mg p.o. every 6 hours, metoprolol 100 mg every morning, lisinopril 40 mg p.o. daily. I am going to start him on minoxidil 2.5 mg p.o. twice a day. Going to closely watch his blood pressure every 4 hours. Patient denies any chest pains or headaches. (2) Class 2 obesity with body mass index (BMI) of 37.0 to 37.9 in adult Qualifiers: Obesity type: due to excess calories Serious obesity comorbidity presence: with serious comorbidity Qualified Code(s): E66.01 - Morbid (severe) obesity due to excess calories; Z68.37 - Body mass index (BMI) 37.0-37.9, adult Is this a current diagnosis for this admission?: Yes Plan: 08/08/2018-diet exercise weight loss and lifestyle modifications are discussed with the patient. BMI is more than 35. Dietary consult was requested. 2018-patient BMI is more than 35 again dietary advice was provided today. (3) Anemia in chronic kidney disease (CKD) Qualifiers: Chronic kidney disease stage: stage 3 (moderate) Qualified Code(s): N18.3 - Chronic kidney disease, stage 3 (moderate); D63.1 - Anemia in chronic kidney disease Is this a current diagnosis for this admission?: Yes Plan: 08/08/2018-patient is hemoglobin is 12. History of anemia of chronic disease. Hemoglobin is stable. Anemia may be secondary to chronic kidney disease. 08/09/2018-patient hemoglobin is 12 stable. (4) CKD (chronic kidney disease) stage 3, GFR 30-59 ml/min Is this a current diagnosis for this admission?: Yes Plan: 08/08/2018 patient has history of stage III kidney disease. 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 Continue to provide supportive care. 08/09/2018-patient has a stage III kidney disease. He follows Dr. Corey as outpatient. Plan is to continue the supportive measurement creatinine was 3.2 today. - Time Time Spent with patient: 15-24 minutes Medications reviewed and adjusted accordingly: Yes Anticipated discharge: Home
[2018-08-09] MEDS: INSULIN GLARGINE,HUM.REC.ANLOG 300 UNIT/3 ML INSULN.PEN SUBCUT SCH (22:48)
[2018-08-09] MEDS: MINOXIDIL 2.5 MG TABLET PO SCH (22:51)
[2018-08-09] MEDS: OXYCODONE-ACETAMINOPHEN 5-325 MG TABLET PO PRN (22:51)
[2018-08-09] MEDS: CLONAZEPAM 1 MG TABLET PO SCH (22:51)
[2018-08-09] MEDS: ATORVASTATIN CALCIUM 80 MG TABLET PO SCH (22:51)
[2018-08-10] MEDS: METOPROLOL TARTRATE 100 MG TABLET PO SCH ×2 (02:09→09:31)
[2018-08-10] MEDS: OXYCODONE-ACETAMINOPHEN 5-325 MG TABLET PO PRN (04:26)
[2018-08-10] MEDS: HYDRALAZINE HCL INJ/PF 20 MG/1 ML SDV IV PRN (04:34)
[2018-08-10] MEDS: HEPARIN SOD (PORCINE) 5,000 UNIT/ML 1 ML SYRINGE SUBCUT SCH ×2 (05:30→14:29)
[2018-08-10] MEDS: LANSOPRAZOLE 15 MG TAB.RAP.DR PO SCH (05:30)
[2018-08-10] MEDS: HYDRALAZINE HCL 10 MG TABLET PO SCH ×2 (05:30→14:29)
[2018-08-10] MEDS: AMLODIPINE BESYLATE 10 MG TABLET PO SCH (09:31)
[2018-08-10] MEDS: LISINOPRIL 10 MG TABLET PO SCH (09:31)
[2018-08-10] MEDS: COLCHICINE 0.6 MG TABLET PO SCH (09:31)
[2018-08-10] MEDS: POTASSIUM CHLORIDE 10 MEQ CAPSULE.ER PO SCH (09:31)
[2018-08-10] MEDS: INSULIN LISPRO 100 UNIT/ML 3 ML VIAL SUBCUT SCH ×4 (09:32→12:00)
[2018-08-10] MEDS: MINOXIDIL 2.5 MG TABLET PO SCH (09:32)
[2018-08-10 14:31] VITALS: BP 132/78
--- NOTE | 2018-08-10 14:55 | PDOC DISCHARGE SUMMARY ---
General - Admit/Disc Date/PCP Admission Date/Primary Care Provider: 08/04/18 18:31 JOANN ARELLANO MD Discharge Date: 08/10/18 - Discharge Diagnosis (1) Hypertensive urgency Is this a current diagnosis for this admission?: Yes (2) CKD (chronic kidney disease) stage 3, GFR 30-59 ml/min Is this a current diagnosis for this admission?: Yes (3) Hyperlipidemia Is this a current diagnosis for this admission?: Yes (4) Type 2 diabetes mellitus Is this a current diagnosis for this admission?: Yes (5) Peripheral neuropathy Is this a current diagnosis for this admission?: Yes (6) Obstructive sleep apnea Is this a current diagnosis for this admission?: Yes (7) Class 2 obesity with body mass index (BMI) of 37.0 to 37.9 in adult Is this a current diagnosis for this admission?: Yes - Additional Information Resuscitation Status: Full Code Home Medications: Amlodipine Besylate [Norvasc 10 mg Tablet] 10 mg PO DAILY 08/04/18 Atorvastatin Calcium [Lipitor 80 mg Tablet] 80 mg PO DAILY 08/04/18 Clonazepam [Klonopin 1 mg Tablet] 1 mg PO QHS 08/04/18 Colchicine [Colcrys 0.6 mg Tablet] 0.6 mg PO DAILY 08/04/18 Hydrocodone/Acetaminophen [Lorcet Plus 7.5-325 mg Tablet] 1 tab PO Q8HP PRN 08/04/18 Lisinopril [Prinivil 40 mg Tablet] 40 mg PO DAILY 08/04/18 Meloxicam [Mobic] 15 mg PO DAILY 08/04/18 Ondansetron HCl [Zofran 8 mg Tablet] 8 mg PO Q8HP PRN 08/04/18 Potassium Chloride [Klor-Con M20] 20 meq PO DAILY 08/04/18 History of Present Illness History of Present Illness: CLARI TSAI JR is a 58 year old male Hospital Course Hospital Course: This is 58 years old male patient with multiple comorbidities admitted with impression of hypertensive urgency. Patient had history of hypertensive emergency which requires admission to this hospital. Patient has been managed with IV hydralazine as needed, lisinopril 40 mg p.o. daily, metoprolol 100 mg 3 times a day and Norvasc 10 mg p.o. daily. I will added to his home regimen metoprolol 100 mg twice daily and hydralazine 50 mg p.o. 3 times a day. Patient advised that to keep up his follow-up with his primary skilled helper Dr. Coery. I advised to avoid salt and nephrotoxic agents. Physical Exam Vital Signs: Temp Pulse Resp BP Pulse Ox 98.9 F 69 14 132/78 H 96 08/10/18 11:16 08/10/18 11:16 08/10/18 11:16 08/10/18 11:16 08/10/18 11:16 Intake & Output 08/09/18 08/10/18 08/11/18 06:59 06:59 06:59 Intake Total 530 1304 Output Total 600 Balance -70 1304 Weight 122.7 kg 123.4 kg General appearance: PRESENT: no acute distress, well-developed, well-nourished Head exam: PRESENT: atraumatic, normocephalic Eye exam: PRESENT: conjunctiva pink, EOMI, PERRLA. ABSENT: scleral icterus Ear exam: PRESENT: normal external ear exam Mouth exam: PRESENT: moist, tongue midline Neck exam: ABSENT: carotid bruit, JVD, lymphadenopathy, thyromegaly Respiratory exam: PRESENT: clear to auscultation octavia. ABSENT: rales, rhonchi, wheezes Cardiovascular exam: PRESENT: RRR. ABSENT: diastolic murmur, rubs, systolic murmur Pulses: PRESENT: normal dorsalis pedis pul Vascular exam: PRESENT: normal capillary refill GI/Abdominal exam: PRESENT: normal bowel sounds, soft. ABSENT: distended, guarding, mass, organolmegaly, rebound, tenderness Rectal exam: PRESENT: deferred Extremities exam: PRESENT: full ROM. ABSENT: calf tenderness, clubbing, pedal edema Neurological exam: PRESENT: alert, awake, oriented to person, oriented to place, oriented to time, oriented to situation, CN II-XII grossly intact. ABSENT: motor sensory deficit Psychiatric exam: PRESENT: appropriate affect, normal mood. ABSENT: homicidal ideation, suicidal ideation Skin exam: PRESENT: dry, intact, warm. ABSENT: cyanosis, rash Results Laboratory Results: 08/09/18 08:07 08/09/18 08:07 08/04/18 15:25 Troponin I 0.025 Impressions: Chest X-Ray 08/04/18 14:56 IMPRESSION: NO ACUTE RADIOGRAPHIC FINDING IN THE CHEST. Head CT 08/04/18 17:10 IMPRESSION: MILD CHRONIC CHANGES OF ATROPHY AND MICROVASCULAR ISCHEMIA. NO ACUTE PROCESS. EVIDENCE OF ACUTE STROKE: NO. Qualifiers - * PATIENT BEING DISCHARGED WITH ANY OF THE FOLLOWING DIAGNOSIS: No
[2018-08-10] MEDS ORDERED: ONDANSETRON 4 MG TAB.RAPDIS PO PRN (15:30)
[2018-08-10] MEDS ORDERED: ONDANSETRON HCL INJ/PF 4 MG/2 ML SDV IV PRN (15:30)
== END 2018-08-10 16:36 | disposition home or self-care (01) | DRG 683 ==
LOC: ER 14:17 → EH 18:31 → ICU 23:00 → 4S 08-08 02:55
PROVIDERS: ADMIT Hospitalist; ATTEND Hospitalist
DX: I12.9 Hypertensive chronic kidney disease with stage 1 through stage 4 chronic kidney disease, or unspecified chronic kidney disease (principal); N18.4 Chronic kidney disease, stage 4 (severe); E11.22 Type 2 diabetes mellitus with diabetic chronic kidney disease; E11.42 Type 2 diabetes mellitus with diabetic polyneuropathy; E66.01 Morbid (severe) obesity due to excess calories; K21.9 Gastro-esophageal reflux disease without esophagitis; F41.9 Anxiety disorder, unspecified; E78.5 Hyperlipidemia, unspecified; J44.9 Chronic obstructive pulmonary disease, unspecified; G47.30 Sleep apnea, unspecified; M19.042 Primary osteoarthritis, left hand; M19.041 Primary osteoarthritis, right hand; M10.9 Gout, unspecified; L30.9 Dermatitis, unspecified; F32.9 Major depressive disorder, single episode, unspecified; R63.0 Anorexia; R63.4 Abnormal weight loss; I16.0 Hypertensive urgency; E78.1 Pure hyperglyceridemia; D63.1 Anemia in chronic kidney disease; Z82.49 Family history of ischemic heart disease and other diseases of the circulatory system; Z84.1 Family history of disorders of kidney and ureter; Z68.37 Body mass index [BMI] 37.0-37.9, adult
CPT/HCPCS: 36415; 70450; 71045; 80048; 80053; 80061; 80069; 82962; 83036; 83735; 84484; 85025; 85027; 93005; 93010; 96374; 96375; 99285; J0360; J1644; J1815; J2405; J3490

== ENCOUNTER 2018-08-11 17:06 | Inpatient (IN) | payer BC ==
--- NOTE | 2018-08-11 18:10 | ER Document Report ---
ED Medical Screen (RME) - General Chief Complaint: Fever Stated Complaint: FEVER Time Seen by Provider: 08/11/18 18:02 Primary Care Provider: JOANN ARELLANO MD [Primary Care Provider] - Follow up as needed Notes: 58 years old male with a history of diabetes, discharged from the hospital a few days ago had an IV in the left antecubital region. He presents today with fever around 2:00 associated with high blood sugar as well as swelling pain over the left antecubital and left proximal forearm region. On examination around the antecubital area of the left arm sharp tenderness swelling erythema was noted. TRAVEL OUTSIDE OF THE [place] IN LAST 30 DAYS: No - Related Data Allergies/Adverse Reactions: povidone-iodine [From Betadine] Allergy (Severe, Verified 08/11/18 17:09) Generalized rash Soap [From Betadine] Allergy (Severe, Verified 08/11/18 17:09) Generalized rash Past Medical History - Social History Family history: Reviewed & Not Pertinent - Past Medical History Cardiac Medical History: Reports: Hx Hypercholesterolemia, Hx Hypertension Denies: Hx Coronary Artery Disease, Hx Heart Attack Pulmonary Medical History: Reports: Hx Asthma - no episodes in "quite awhile", Hx COPD, Hx Sleep Apnea Denies: Hx Bronchitis, Hx Pneumonia Neurological Medical History: Denies: Hx Cerebrovascular Accident, Hx Seizures Endocrine Medical History: Reports: Hx Diabetes Mellitus Type 2 Renal/ Medical History: Reports: Hx Kidney Stones - kidney disease. 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, Hx Tonsillectomy, Other - bilateral cataract extraction with insertion of lens - Immunizations Immunizations up to date: Yes Hx Diphtheria, Pertussis, Tetanus Vaccination: Yes History of Influenza Vaccine for 03/2017 - 08/2017 Season: Yes Influenza Administration Date for 03/2017 - 08/2017 Season: 03/14/17 Physical Exam - Vital signs Vitals: Temp Pulse Resp BP Pulse Ox 100.6 F H 115 H 18 128/83 H 95 08/11/18 17:17 08/11/18 17:17 08/11/18 17:17 08/11/18 17:17 08/11/18 17:17 Course - Vital Signs Vital signs: Temp Pulse Resp BP Pulse Ox 100.6 F H 115 H 18 128/83 H 95 08/11/18 17:17 08/11/18 17:17 08/11/18 17:17 08/11/18 17:17 08/11/18 17:17 Doctor's Discharge - Discharge Referrals: JOANN ARELLANO MD [Primary Care Provider] - Follow up as needed
[2018-08-11] MEDS ORDERED: CEFAZOLIN 2 GM/D5W RTU 2 GM/50 ML RTUPB IV SCH (18:30)
[2018-08-11 18:57] LABS: HEMATOCRIT 33.5 % (37.9-51.0); HEMOGLOBIN 11.3 g/dL (13.5-17.0); MEAN CORPUSCULAR HEMOGLOBIN 30.9 pg (27.0-33.4); MEAN CORPUSCULAR HGB CONC 33.7 g/dL (32.0-36.0); MEAN CORPUSCULAR VOLUME 92 fl (80-97); PLATELET COUNT 223 10^3/uL (150-450); RED BLOOD COUNT 3.65 10^6/uL (4.35-5.55); RED CELL DISTRIBUTION WIDTH 13.8 % (11.5-14.0)
[2018-08-11 19:00] LABS: WHITE BLOOD COUNT 20.6 10^3/uL (4.0-10.5)
[2018-08-11 19:14] LABS: ABSOLUTE LYMPHOCYTES# (MANUAL) 2.5 10^3/uL (0.5-4.7); ABSOLUTE MONOCYTES # (MANUAL) 0.6 10^3/uL (0.1-1.4); ABSOLUTE NEUTROPHILS# (MANUAL) 17.5 10^3/uL (1.7-8.2); BASOPHILS % (MANUAL) 0 % (0-2); EOSINOPHILS % (MANUAL) 0 % (0-6); LYMPHOCYTES % (MANUAL) 12 % (13-45); MONOCYTES % (MANUAL) 3 % (3-13); SEGMENTED NEUTROPHILS % (MAN) 85 % (42-78); TOTAL CELLS COUNTED 100
[2018-08-11 19:15] LABS: PLATELET COMMENT ADEQUATE; POLYCHROMASIA SLIGHT
[2018-08-11 19:16] LABS: PLATELET LARGE PRESENT
[2018-08-11 19:17] LABS: ALANINE AMINOTRANSFERASE 37 U/L (21-72); ALBUMIN 3.1 g/dL (3.5-5.0); ALKALINE PHOSPHATASE 54 U/L (38-126); ANION GAP 10 (5-19); ASPARTATE AMINO TRANSFERASE 37 U/L (17-59); BILIRUBIN,DIRECT 0.4 mg/dL (0.0-0.4); BILIRUBIN,TOTAL 1.1 mg/dL (0.2-1.3); BLOOD UREA NITROGEN 61 mg/dL (7-20); CALCIUM 8.8 mg/dL (8.4-10.2); CARBON DIOXIDE 20 mmol/L (22-30); CHLORIDE 108 mmol/L (98-107); GLUCOSE 183 mg/dL (75-110); POTASSIUM 4.5 mmol/L (3.6-5.0); TOTAL PROTEIN 5.5 g/dL (6.3-8.2)
[2018-08-11] MEDS: CEFAZOLIN 2 GM/D5W RTU 2 GM/50 ML RTUPB IV SCH ×2 (20:09→23:54)
[2018-08-11] MEDS ORDERED: NORMAL SALINE 1000 ML 1,000 ML IV ONE (20:38)
[2018-08-11] MEDS ORDERED: ACETAMINOPHEN 325 MG TABLET PO ONE (20:38)
--- NOTE | 2018-08-11 20:39 | ER Document Report ---
ED General - General Chief Complaint: Fever Stated Complaint: FEVER Time Seen by Provider: 08/11/18 18:02 Notes: Patient is a 58-year-old male that comes to the emergency department for chief complaint of fever, weakness, and left arm pain. He states that he was discharged to the hospital yesterday, after he went home with the area in his left antecubital region where an IV had been placed but never would stop bleeding, he states it bled through multiple Band-Aids, he states he started getting redness around this and then today the redness spread and now has included his forearm and is swelled into his hand/wrist area. He does have a h istory of diabetes, insulin-dependent. He had been admitted for hypertensive emergency, is on multiple blood pressure medications, also has a history of chronic kidney disease, denies medical history otherwise including any cardiovascular disease. States his primary care is Dr. Corey and he is going to see Dr. Pino as well. TRAVEL OUTSIDE OF THE [place] IN LAST 30 DAYS: No - Related Data Allergies/Adverse Reactions: povidone-iodine [From Betadine] Allergy (Severe, Verified 08/11/18 17:09) Generalized rash Soap [From Betadine] Allergy (Severe, Verified 08/11/18 17:09) Generalized rash Past Medical History - General Information source: Patient, Relative - at bedside - Social History Smoking Status: Never Smoker Frequency of alcohol use: None Drug Abuse: None Lives with: Family Family History: CAD, Other - Renal failure Patient has suicidal ideation: No Patient has homicidal ideation: No - Past Medical History Cardiac Medical History: Reports: Hx Hypercholesterolemia, Hx Hypertension Denies: Hx Coronary Artery Disease, Hx Heart Attack Pulmonary Medical History: Reports: Hx Asthma - no episodes in "quite awhile", Hx COPD, Hx Sleep Apnea Denies: Hx Bronchitis, Hx Pneumonia Neurological Medical History: Denies: Hx Cerebrovascular Accident, Hx Seizures Endocrine Medical History: Reports: Hx Diabetes Mellitus Type 2 Renal/ Medical History: Reports: Hx Kidney Stones - kidney disease. 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, Hx Tonsillectomy, Other - bilateral cataract extraction with insertion of lens - Immunizations Immunizations up to date: Yes Hx Diphtheria, Pertussis, Tetanus Vaccination: Yes Hx Pneumococcal Vaccination: 03/14/18 Review of Systems - Review of Systems Constitutional: See HPI EENT: No symptoms reported Cardiovascular: No symptoms reported Respiratory: No symptoms reported Gastrointestinal: No symptoms reported Genitourinary: No symptoms reported Male Genitourinary: No symptoms reported Musculoskeletal: See HPI Skin: See HPI Hematologic/Lymphatic: No symptoms reported Neurological/Psychological: No symptoms reported Physical Exam - Vital signs Vitals: Temp Pulse Resp BP Pulse Ox 100.6 F H 115 H 18 128/83 H 95 08/11/18 17:17 08/11/18 17:17 08/11/18 17:17 08/11/18 17:17 08/11/18 17:17 - Notes Notes: GENERAL: Alert, interacts well. No acute distress. HEAD: Normocephalic, atraumatic. EYES: Pupils equal, round, and reactive to light. Extraocular movements intact. ENT: Oral mucosa moist, tongue midline. Oropharynx unremarkable. Airway patent. Nares patent, no nasal septal hematoma, TM's intact. NECK: Full range of motion. Supple. Trachea midline. LUNGS: Clear to auscultation bilaterally, no wheezes, rales, or rhonchi. No respiratory distress. HEART: Regular rate, regular rhythm, murmur heard throughout, 1/6 systolic ABDOMEN: Soft, non-tender. Non-distended. Bowel sounds present in all 4 quadrants. GENITOURINARY: Deferred EXTREMITIES: Still bleeding wound in the left antecubital space although this is simply oozing. This was easily cleaned and stopped with compression. Surr ounding erythema with spreading up the arm and up to the hand/wrist, not including the fingers. Pain with palpation of the areas of the forearm generally although there is no indurated, fluctuant, or severely tender areas. Normal distal neurovascular exam. Unremarkable extremity exam is otherwise. BACK: no cervical, thoracic, lumbar midline tenderness. No saddle anesthesia, normal distal neurovascular exam. NEUROLOGICAL: Alert and oriented x3. Normal speech. [cranial nerves II through XII grossly intact]. PSYCH: Normal affect, normal mood. SKIN: Warm, dry, normal turgor. No rashes or lesions noted. Course - Re-evaluation Re-evalutation: Patient febrile and tachycardic. He is alert and conversational. He does have evidence of cellulitis to the left upper extremity with spreading up the forearm towards the hand. X-ray performed but does not show any foreign body. Patient with no cough, abdominal pain, chest pain, or other complaints. Leukocytosis of 20,000 which is new, renal functioning is elevated by approx imately baseline, BUN is elevated, given IV fluids. Patient given cephalosporin by triage, adding vancomycin, cultures pending, lactic acid is normal. Blood pressure trended up, patient is due for his medications, however his evaluation is not consistent with septic shock. Because of patient's advanced age, diabetes, multiple comorbidities, tachycardia, fever, leukocytosis, and obvious bad upper extremity-cellulitis I recommended admission. Patient and in agreement. Discussed with Dr. Whipple, patient admitted to telemetry full admission. - Vital Signs Vital signs: Temp Pulse Resp BP Pulse Ox 98.5 F 86 22 H 149/74 H 98 08/12/18 00:38 08/12/18 00:38 08/12/18 00:38 08/12/18 00:38 08/12/18 00:38 - Laboratory Result Diagrams: 08/11/18 18:17 08/11/18 18:17 Laboratory results interpreted by me: 08/11/18 08/11/18 08/11/18 18:17 18:17 22:40 WBC 20.6 H D RBC 3.65 L Hgb 11.3 L Hct 33.5 L Seg Neuts % (Manual) 85 H Lymphocytes % (Manual) 12 L Abs Neuts (Manual) 17.5 H Chloride 108 H Carbon Dioxide 20 L BUN 61 H Creatinine 3.68 H Est GFR ( Amer) 21 L Est GFR (Non-Af Amer) 17 L Glucose 183 H Lactic Acid 0.5 L Total Protein 5.5 L Albumin 3.1 L Discharge - Discharge Clinical Impression: Left arm pain Cellulitis Qualifiers: Site of cellulitis: extremity Site of cellulitis of extremity: upper extremity Laterality: left Qualified Code(s): L03.114 - Cellulitis of left upper limb Leukocytosis Qualifiers: Leukocytosis type: other Qualified Code(s): D72.828 - Other elevated white blood cell count Fever Qualifiers: Fever type: unspecified Qualified Code(s): R50.9 - Fever, unspecified Condition: Serious Disposition: ADMITTED INPATIENT Admitting Provider: Hospitalist Unit Admitted: Telemetry
[2018-08-11] MEDS ORDERED: FENTANYL CITRATE INJ/PF 100 MCG/2 ML AMPUL IV ONE (20:40)
[2018-08-11] MEDS ORDERED: VANCOMYCIN HCL INJ 1000 MG VIAL IV ONE (20:43)
--- NOTE | 2018-08-11 21:58 | RADIOLOGY REPORT (SQ) ---
EXAM DESCRIPTION: XR FOREARM 2 VIEWS COMPLETED DATE/TME: 08/11/2018 20:38 CLINICAL HISTORY: 58 years, Male, pain, swelling COMPARISON: None. FINDINGS: No fracture or dislocation. Soft tissues are unremarkable. IMPRESSION: No acute abnormality.
[2018-08-11] MEDS ORDERED: DEXTROSE 50%-WATER 25 GM/50 ML DISP.SYRIN IV PRN ×2 (23:57)
[2018-08-11] MEDS ORDERED: MAG HYDROX/AL HYDROX/SIMETH SUSP 30 ML UDCUP PO PRN (23:57)
[2018-08-11] MEDS ORDERED: DEXTROSE 40% GEL 15 GM TUBE PO PRN ×2 (23:57)
[2018-08-11] MEDS ORDERED: GLUCAGON,HUMAN RECOMB 1 MG INJ IM PRN (23:57)
[2018-08-11] MEDS ORDERED: MAGNESIUM HYDROXIDE SUSP 30 ML UDCUP PO PRN (23:57)
[2018-08-11] MEDS ORDERED: IPRATROPIUM/ALBUTEROL 0.5-2.5 MG/3 ML AMPUL NEB PRN (23:57)
[2018-08-12] MEDS ORDERED: VANCOMYCIN HCL 0 MG in DEXTROSE 5%-WATER 250 ML IV NR (00:15)
[2018-08-12] MEDS ORDERED: AMLODIPINE BESYLATE 5 MG TABLET PO ONE (00:20)
[2018-08-12] MEDS: NORMAL SALINE 1000 ML 1,000 ML IV PRN ×2 (01:36→03:35)
[2018-08-12 03:01] LABS: ARTERIAL BLOOD BASE EXCESS -4.8 mmol/L; ARTERIAL BLOOD H2CO3 0.94 mmol/L (1.05-1.35); ARTERIAL BLOOD HCO3 19.2 mmol/L (20-24); ARTERIAL BLOOD O2 SATURATION 95.9 % (94-98); ARTERIAL BLOOD PCO2 31.2 mmHg (35-45); ARTERIAL BLOOD PH 7.41 (7.35-7.45); ARTERIAL BLOOD PO2 78.5 mmHg (80-100); ARTERIAL BLOOD TOTAL CO2 20.2 mmol/L (23-27)
[2018-08-12 03:02] LABS: ARTERIAL BLOOD FIO2 21%
[2018-08-12] MEDS: ACETAMINOPHEN 325 MG TABLET PO PRN ×3 (04:58→18:28)
[2018-08-12] MEDS: CEFAZOLIN 2 GM/D5W RTU 2 GM/50 ML RTUPB IV SCH ×3 (04:59→18:29)
[2018-08-12] MEDS ORDERED: METOPROLOL TARTRATE PF/INJ 5 MG/5 ML SDV IV ONE (05:26)
--- NOTE | 2018-08-12 05:36 | PDOC H&P ---
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 Patient was discharged from acute care hospitalization 48 hours ago for hypertensive urgency but returns with pain swelling and erythema to his right hand spreading proximally associated with fever. In the emergency department he is found to have leukocytosis and market erythema and pain to his left arm. He is started on empiric antibiotics and referred to the hospitalist for admission. In the emergency department he is found lethargic on oxygen without BiPAP and difficult to arouse. Unable to answer questions he is placed on BiPAP with follow-up ABG. Past Medical History Cardiac Medical History: Reports: Hyperlipidema, Hypertension Denies: Coronary Artery Disease, Myocardial Infarction Pulmonary Medical History: Reports: Asthma - no episodes in "quite awhile", Chronic Obstructive Pulmonary Disease (COPD), Sleep Apnea Denies: Bronchitis, Pneumonia Neurological Medical History: Denies: Seizures Endocrine Medical History: Reports: Diabetes Mellitus Type 2 GI Medical History: Reports: Gastroesophageal Reflux Disease Musculoskeltal Medical History: Reports: Arthritis - hands, Gout Skin Medical History: Reports: Eczema Psychiatric Medical History: Reports: Depression Hematology: Denies: Anemia Past Surgical History Past Surgical History: Reports: Appendectomy, Tonsillectomy, Other - bilateral cataract extraction with insertion of lens Social History Information Source: Relative, Emergency Med Personnel, [facility], [facility] Records Lives with: Family Smoking Status: Never Smoker Frequency of Alcohol Use: None Hx Recreational Drug Use: No Drugs: None Hx Prescription Drug Abuse: No - Advance Directive Resuscitation Status: Full Code Family History Family History: CAD, Other - Renal failure Parental Family History Reviewed: Yes Children Family History Reviewed: Yes Sibling(s) Family History Reviewed.: Yes Medication/Allergy Home Medications: Amlodipine Besylate [Norvasc 10 mg Tablet] 10 mg PO DAILY 08/04/18 Atorvastatin Calcium [Lipitor 80 mg Tablet] 80 mg PO DAILY 08/04/18 Clonazepam [Klonopin 1 mg Tablet] 1 mg PO QHS 08/04/18 Hydrocodone/Acetaminophen [Lorcet Plus 7.5-325 mg Tablet] 1 tab PO Q8HP PRN 08/04/18 Lisinopril [Prinivil 40 mg Tablet] 40 mg PO DAILY 08/04/18 Meloxicam [Mobic] 15 mg PO DAILY 08/04/18 Ondansetron HCl [Zofran 8 mg Tablet] 8 mg PO Q8HP PRN 08/04/18 Potassium Chloride [Klor-Con M20] 20 meq PO DAILY 08/04/18 Hydralazine HCl [Apresoline 50 mg Tablet] 50 mg PO TID #90 tab 08/10/18 Metoprolol Tartrate [Lopressor 100 mg Tablet] 100 mg PO Q12 #60 tab 08/10/18 Allergies/Adverse Reactions: povidone-iodine [From Betadine] Allergy (Severe, Verified 08/11/18 17:09) Generalized rash Soap [From Betadine] Allergy (Severe, Verified 08/11/18 17:09) Generalized rash Review of Systems ROS unobtainable: Due to mental status - Drowsy Physical Exam Vital Signs: Temp Pulse Resp BP Pulse Ox 100.4 F 110 H 19 189/68 H 97 08/12/18 03:50 08/12/18 03:50 08/12/18 03:50 08/12/18 03:50 08/12/18 03:50 Intake & Output 08/10/18 08/11/18 08/12/18 11:59 11:59 11:59 Intake Total 2091 Balance 2091 Weight 122.9 kg General appearance: PRESENT: morbidly obese, severe distress, well-developed, well-nourished Head exam: PRESENT: atraumatic, normocephalic Eye exam: PRESENT: conjunctiva pink, EOMI, PERRLA. ABSENT: scleral icterus Ear exam: PRESENT: normal external ear exam Mouth exam: PRESENT: moist, tongue midline Neck exam: ABSENT: carotid bruit, JVD, lymphadenopathy, thyromegaly Respiratory exam: PRESENT: clear to auscultation octavia, decreased breath sounds. ABSENT: rales, rhonchi, wheezes Cardiovascular exam: PRESENT: RRR. ABSENT: diastolic murmur, rubs, systolic murmur Pulses: PRESENT: normal dorsalis pedis pul Vascular exam: PRESENT: normal capillary refill GI/Abdominal exam: PRESENT: normal bowel sounds, soft. ABSENT: distended, guarding, mass, organolmegaly, rebound, tenderness Rectal exam: PRESENT: deferred Extremities exam: PRESENT: full ROM, tenderness, other - Left hand erythema and induration about the site of former IV. Lymphangitic spread visible to axilla. Musculoskeletal exam: PRESENT: tenderness - Left arm Neurological exam: PRESENT: altered, oriented to person, CN II-XII grossly in tact. ABSENT: oriented to place, oriented to time, oriented to situation Psychiatric exam: PRESENT: appropriate affect, normal mood. ABSENT: homicidal ideation, suicidal ideation Skin exam: PRESENT: dry, intact, warm. ABSENT: cyanosis, rash Results Laboratory Results: 08/11/18 18:17 08/11/18 18:17 08/11/18 08/11/18 08/11/18 18:17 18:17 22:40 WBC 20.6 H D RBC 3.65 L Hgb 11.3 L Hct 33.5 L MCV 92 MCH 30.9 MCHC 33.7 RDW 13.8 Plt Count 223 Seg Neutrophils % Not Reportable Lymphocytes % Not Reportable Monocytes % Not Reportable Eosinophils % Not Reportable Basophils % Not Reportable Absolute Neutrophils Not Reportable Absolute Lymphocytes Not Reportable Absolute Monocytes Not Reportable Absolute Eosinophils Not Reportable Absolute Basophils Not Reportable Carbonic Acid HCO3/H2CO3 Ratio ABG pH ABG pCO2 ABG pO2 ABG HCO3 ABG O2 Saturation ABG Base Excess FiO2 Sodium 138.0 Potassium 4.5 Chloride 108 H Carbon Dioxide 20 L Anion Gap 10 BUN 61 H Creatinine 3.68 H Est GFR ( Amer) 21 L Est GFR (Non-Af Amer) 17 L Glucose 183 H Lactic Acid 0.5 L Calcium 8.8 Total Bilirubin 1.1 AST 37 ALT 37 Alkaline Phosphatase 54 Total Protein 5.5 L Albumin 3.1 L 08/12/18 02:48 WBC RBC Hgb Hct MCV MCH MCHC RDW Plt Count Seg Neutrophils % Lymphocytes % Monocytes % Eosinophils % Basophils % Absolute Neutrophils Absolute Lymphocytes Absolute Monocytes Absolute Eosinophils Absolute Basophils Carbonic Acid 0.94 L HCO3/H2CO3 Ratio 20:1 ABG pH 7.41 ABG pCO2 31.2 L ABG pO2 78.5 L ABG HCO3 19.2 L ABG O2 Saturation 95.9 ABG Base Excess -4.8 FiO2 21% Sodium Potassium Chloride Carbon Dioxide Anion Gap BUN Creatinine Est GFR ( Amer) Est GFR (Non-Af Amer) Glucose Lactic Acid Calcium Total Bilirubin AST ALT Alkaline Phosphatase Total Protein Albumin Impressions: Forearm X-Ray 08/11/18 20:38 IMPRESSION: No acute abnormality. Assessment & Plan - Diagnosis (1) Cellulitis Qualifiers: Site of cellulitis: extremity Site of cellulitis of extremity: upper extremity Laterality: left Qualified Code(s): L03.114 - Cellulitis of left upper limb Is this a current diagnosis for this admission?: Yes Plan: Likely secondary to recent IV, follow-up ultrasound for possible deep vein thrombosis, follow-up blood and wound culture repeat CBC, continue empiric an tibiotic coverage for community-acquired MRSA with double coverage and symptomatic management. Consider surgical consultation if not significantly improved with follow-up evaluation. (2) CKD (chronic kidney disease) stage 4, GFR 15-29 ml/min Is this a current diagnosis for this admission?: Yes Plan: Avoid nephrotoxic meds and doses pharmacy to dose vancomycin. (3) Hypertensive urgency Is this a current diagnosis for this admission?: Yes Plan: Outpatient regiment with as needed hydralazine, clonidine (4) Obstructive sleep apnea Is this a current diagnosis for this admission?: Yes Plan: Appears hypercapnic on presentation, BiPAP ordered, follow-up ABG - Time Time Spent: 50 to 70 Minutes - Inpatient Certification Medical Necessity: Need Close Monitoring Due to Risk of Patient Decompensation
[2018-08-12] MEDS: HEPARIN SOD (PORCINE) 5,000 UNIT/ML 1 ML SYRINGE SUBCUT SCH ×3 (06:19→21:22)
[2018-08-12 06:27] LABS: ABSOLUTE BASOPHILS # (AUTO) 0.1 10^3/uL (0.0-0.2); ABSOLUTE LYMPHOCYTES (AUTO) 0.9 10^3/uL (0.5-4.7); ABSOLUTE MONOCYTES (AUTO) 1.1 10^3/uL (0.1-1.4); BASOPHILS % (AUTO) 0.4 % (0-2); HEMATOCRIT 28.2 % (37.9-51.0); HEMOGLOBIN 9.8 g/dL (13.5-17.0); LYMPHOCYTES % (AUTO) 6.1 % (13-45); MEAN CORPUSCULAR HGB CONC 34.8 g/dL (32.0-36.0); MEAN CORPUSCULAR VOLUME 92 fl (80-97); PLATELET COUNT 153 10^3/uL (150-450); RED BLOOD COUNT 3.06 10^6/uL (4.35-5.55); RED CELL DISTRIBUTION WIDTH 13.4 % (11.5-14.0); SEGMENTED NEUTROPHILS % (AUTO) 86.5 % (42-78); TOTAL CELLS COUNTED % (AUTO) 100 %; WHITE BLOOD COUNT 15.1 10^3/uL (4.0-10.5)
[2018-08-12 06:56] LABS: BLOOD UREA NITROGEN 57 mg/dL (7-20); CHLORIDE 111 mmol/L (98-107); GLUCOSE 141 mg/dL (75-110)
[2018-08-12 06:57] LABS: ANION GAP 10 (5-19); CARBON DIOXIDE 17 mmol/L (22-30); SODIUM 137.6 mmol/L (137-145)
[2018-08-12] MEDS: INSULIN LISPRO 100 UNIT/ML 3 ML VIAL SUBCUT SCH ×3 (07:52→16:35)
[2018-08-12] MEDS: LISINOPRIL 10 MG TABLET PO SCH (09:02)
[2018-08-12] MEDS: ATORVASTATIN CALCIUM 80 MG TABLET PO SCH (09:03)
[2018-08-12] MEDS: METOPROLOL TARTRATE 100 MG TABLET PO SCH ×2 (09:03→21:22)
[2018-08-12] MEDS: DOCUSATE SODIUM 100 MG CAPSULE PO SCH ×2 (09:03→18:28)
[2018-08-12] MEDS: HYDRALAZINE HCL 50 MG TABLET PO SCH ×3 (09:03→18:28)
[2018-08-12] MEDS: AMLODIPINE BESYLATE 10 MG TABLET PO SCH (09:03)
--- NOTE | 2018-08-12 13:41 | PDOC PROGRESS REPORT ---
Subjective Progress Note for:: 08/12/18 Subjective:: Mr. Nathan is 58 years old male patient with past medical history of hyperlipidemia hypertension, bronchial asthma, COPD, type 2 diabetes (, GERD, depression, anxiety, obstructive sleep apnea and history of left kidney donor and stage III CKD of the remaining kidney. Patient discharged on August 10 after he had been treated for hypertensive urgency. Patient represented to ER after 24 hours with different complaint which is tenderness and swelling and erythema of the left hand. Patient empirically started on cefazolin and vancomycin. His blood culture grew gram-positive cocci in cluster. 1 of the blood culture result is pending. Patient may need echo to rule out vegetation. At this point we do not know the gram-positive cocci in clusters staph epidermidis or staph aureus. Reason For Visit: RIGHT ARM CELLULITIS, DM, HTN, CKD4, ZACH, MORBID Physical Exam Vital Signs: Temp Pulse Resp BP Pulse Ox 99.3 F 80 16 158/71 H 99 08/12/18 12:04 08/12/18 12:04 08/12/18 12:04 08/12/18 12:04 08/12/18 12:04 Intake & Output 08/11/18 08/12/18 08/13/18 06:59 06:59 06:59 Intake Total 4157 Output Total 150 Balance 4007 Weight 125 kg General appearance: PRESENT: no acute distress, well-developed, well-nourished Head exam: PRESENT: atraumatic, normocephalic Eye exam: PRESENT: conjunctiva pink, EOMI, PERRLA. ABSENT: scleral icterus Ear exam: PRESENT: normal external ear exam Mouth exam: PRESENT: moist, tongue midline Neck exam: ABSENT: carotid bruit, JVD, lymphadenopathy, thyromegaly Respiratory exam: PRESENT: clear to auscultation octavia. ABSENT: rales, rhonchi, wheezes Cardiovascular exam: PRESENT: RRR. ABSENT: diastolic murmur, rubs, systolic murmur Pulses: PRESENT: normal dorsalis pedis pul Vascular exam: PRESENT: normal capillary refill GI/Abdominal exam: PRESENT: normal bowel sounds, soft. ABSENT: distended, guarding, mass, organolmegaly, rebound, tenderness Rectal exam: PRESENT: deferred Extremities exam: PRESENT: full ROM. ABSENT: calf tenderness, clubbing, pedal edema Musculoskeletal exam: PRESENT: other - Tender erythematous swollen left hand Neurological exam: PRESENT: alert, awake, oriented to person, oriented to place, oriented to time, oriented to situation, CN II-XII grossly intact. ABSENT: motor sensory deficit Psychiatric exam: PRESENT: appropriate affect, normal mood. ABSENT: homicidal ideation, suicidal ideation Skin exam: PRESENT: dry, intact, warm. ABSENT: cyanosis, rash Results Laboratory Results: 08/12/18 06:14 08/12/18 06:14 08/11/18 08/11/18 08/11/18 18:17 18:17 22:40 WBC 20.6 H D RBC 3.65 L Hgb 11.3 L Hct 33.5 L MCV 92 MCH 30.9 MCHC 33.7 RDW 13.8 Plt Count 223 Seg Neutrophils % Not Reportable Lymphocytes % Not Reportable Monocytes % Not Reportable Eosinophils % Not Reportable Basophils % Not Reportable Absolute Neutrophils Not Reportable Absolute Lymphocytes Not Reportable Absolute Monocytes Not Reportable Absolute Eosinophils Not Reportable Absolute Basophils Not Reportable Carbonic Acid HCO3/H2CO3 Ratio ABG pH ABG pCO2 ABG pO2 ABG HCO3 ABG O2 Saturation ABG Base Excess FiO2 Sodium 138.0 Potassium 4.5 Chloride 108 H Carbon Dioxide 20 L Anion Gap 10 BUN 61 H Creatinine 3.68 H Est GFR ( Amer) 21 L Est GFR (Non-Af Amer) 17 L Glucose 183 H Lactic Acid 0.5 L Calcium 8.8 Total Bilirubin 1.1 AST 37 ALT 37 Alkaline Phosphatase 54 Total Protein 5.5 L Albumin 3.1 L 08/12/18 08/12/18 08/12/18 02:48 06:14 06:14 WBC 15.1 H RBC 3.06 L Hgb 9.8 L Hct 28.2 L MCV 92 MCH 32.0 MCHC 34.8 RDW 13.4 Plt Count 153 Seg Neutrophils % 86.5 H Lymphocytes % 6.1 L Monocytes % 7.0 Eosinophils % 0.0 Basophils % 0.4 Absolute Neutrophils 13.0 H Absolute Lymphocytes 0.9 Absolute Monocytes 1.1 Absolute Eosinophils 0.0 Absolute Basophils 0.1 Carbonic Acid 0.94 L HCO3/H2CO3 Ratio 20:1 ABG pH 7.41 ABG pCO2 31.2 L ABG pO2 78.5 L ABG HCO3 19.2 L ABG O2 Saturation 95.9 ABG Base Excess -4.8 FiO2 21% Sodium 137.6 Potassium 4.0 Chloride 111 H Carbon Dioxide 17 L Anion Gap 10 BUN 57 H Creatinine 3.53 H Est GFR ( Amer) 22 L Est GFR (Non-Af Amer) 18 L Glucose 141 H Lactic Acid Calcium 8.0 L Total Bilirubin AST ALT Alkaline Phosphatase Total Protein Albumin Impressions: Forearm X-Ray 08/11/18 20:38 IMPRESSION: No acute abnormality. Assessment & Plan - Diagnosis (1) Left arm cellulitis Is this a current diagnosis for this admission?: Yes Plan: I will continue with vancomycin and DC the cefazolin. Wednesday final report of the blood culture is available I think it is appropriate to request echo to rule out infective endocarditis (2) Leukocytosis Is this a current diagnosis for this admission?: Yes Plan: Continue vancomycin and check CBC in a.m. (3) Type 2 diabetes mellitus Is this a current diagnosis for this admission?: Yes Plan: Continue current regimen (4) Stage III chronic kidney disease Is this a current diagnosis for this admission?: Yes Plan: Follow-up with his primary grip. Patient advised not to take [id number] nonsteroidal anti-inflammatory drugs and also colchicine for his gout. (5) COPD (chronic obstructive pulmonary disease) Qualifiers: Emphysema type: unspecified Is this a current diagnosis for this admission?: Yes Plan: Continue as needed bronchodilators. (6) Hypertension Is this a current diagnosis for this admission?: Yes Plan: Continue lisinopril, metoprolol, hydralazine and Norvasc. (7) Hyperlipidemia Qualifiers: Hyperlipidemia type: unspecified Qualified Code(s): E78.5 - Hyperlipidemia, unspecified Is this a current diagnosis for this admission?: Yes Plan: Continue Lipitor
[2018-08-12] MEDS: HYDROCODONE/ACETAMINOPHEN 7.5-325 MG TABLET PO SCH ×2 (14:23→21:21)
--- NOTE | 2018-08-12 17:56 | PDOC CONSULTATION ---
Consultation Consult Date: 08/12/18 Attending physician:: ARIEL HINDS Consult reason:: I was asked to see the patient due to chronic kidney disease and hypertension. History of Present Illness Admission Date/PCP: 08/11/18 23:31 JOANN ARELLANO MD History of Present Illness: CLARI TSAI JR is a 58 year old male known to me with history of chronic kidney disease stage IV secondary to diabetic nephropathy associated with nephrotic range proteinuria with solitary right kidney, hypertensive nephrosclerosis, diabetes mellitus type 2, hypertension, anemia of chronic kidney disease, right renal mass who was readmitted yesterday because of left arm swelling and fever. Patient was just discharged home 2 days ago and is spent overnight at home when he came in his noted that his left arm is swelling, erythematous, bleeding and in pain. Subsequently he presented to the emergency room. He was also noted by the to be a little confused unable to say much of anything, unsteady and imbalanced, having nausea and vomiting yesterday prior to presentation to the emergency room. He was then diagnosed with left arm cellulitis upon evaluation in the emergency room. He is being given antibiotics including cefazolin and vancomycin intravenously. Doppler of that arm is pending. Patient's blood pressure is actually acceptable running about 160s-180s over 60s-80s. This is good for him. His kidney function when he presented yesterday showed a BUN of 61, creatinine of 3.68 with estimated GFR of 17. Today's kidney function include a BUN of 57, creatinine of 3.53 and estimated GFR of 18. His baseline creatinine running anywhere between 3-3.6 and estimated GFR of 17-22 for the last couple of months which is his new baseline kidney function. 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, right renal mass GI Medical History: Reports: Gastroesophageal Reflux Disease Musculoskeltal Medical History: Reports: Arthritis - hands, Gout Skin Medical History: Reports: Eczema Psychiatric Medical History: Reports: Depression Hematology Medical History: Reports Anemia of Chronic Kidney Disease Past Surgical History Past Surgical History: Reports: Appendectomy, Nephrectomy - Left donated to his sister, Tonsillectomy, Other - bilateral cataract extraction with insertion of lens Social History Information Source: Patient Lives with: Family Smoking Status: Never Smoker Frequency of Alcohol Use: None Hx Recreational Drug Use: No Drugs: None Hx Prescription Drug Abuse: No - Advance Directive Resuscitation Status: Full Code Family History Family History: CAD - Father, DM - Sister and maternal grandfather, End Stage Re nal Disease - Sister, Hypertension - Mother, Malignancy - Breast cancer in his mother, Other - Asthma in his mother Parental Family History Reviewed: Yes Children Family History Reviewed: Yes Sibling(s) Family History Reviewed.: Yes Medication/Allergy Home Medications: Amlodipine Besylate [Norvasc 10 mg Tablet] 10 mg PO DAILY 08/12/18 Atorvastatin Calcium [Lipitor 80 mg Tablet] 80 mg PO QHS 08/12/18 Clonazepam [Klonopin 1 mg Tablet] 1 mg PO QHS 08/12/18 Colchicine [Colchicine 0.6 mg Tablet] 0.6 mg PO DAILY 08/12/18 Hydralazine HCl [Apresoline 50 mg Tablet] 50 mg PO Q8 08/12/18 Hydrocodone/Acetaminophen [[place] 7.5-325 mg Tablet] 1 tab PO Q8 08/12/18 Lisinopril [Prinivil 40 mg Tablet] 40 mg PO DAILY 08/12/18 Meloxicam [Mobic] 15 mg PO DAILY 08/12/18 Metoprolol Tartrate [Lopressor 100 mg Tablet] 100 mg PO Q12 08/12/18 Potassium Chloride [Klor-Con M20] 20 meq PO QPM 08/12/18 Allergies/Adverse Reactions: povidone-iodine [From Betadine] Allergy (Severe, Verified 08/11/18 17:09) Generalized rash Soap [From Betadine] Allergy (Severe, Verified 08/11/18 17:09) Generalized rash Review of Systems All systems: reviewed and no additional remarkable complaints except as stated Review of Systems: Constitutional: ABSENT: chills, fatigue, headache(s), weight gain; admits weight loss, admits fever Eyes: ABSENT: visual disturbances Ears: ABSENT: hearing changes Cardiovascular: ABSENT: chest pain, dyspnea on exertion, orthropnea, palpitations; admits lower extremity edema Respiratory: ABSENT: cough, dyspnea, hemoptysis Gastrointestinal: ABSENT: abdominal pain, constipation, diarrhea, hematemesis, hematochezia, nausea, vomiting Genitourinary: ABSENT: dysuria, hematuria Musculoskeletal: ABSENT: joint swelling Integumentary: ABSENT: rash, wounds; positive left arm swelling with erythema and tenderness Neurological: ABSENT: abnormal gait, abnormal speech, confusion, dizziness, focal weakness, numbness, syncope; admits imbalance Psychiatric: ABSENT: anxiety; positive depression Endocrine: ABSENT: cold intolerance, heat intolerance, polydipsia, polyuria Hematologic/Lymphatic: ABSENT: easy bleeding, easy bruising, lymphadenopathy Physical Exam Vital Signs: Temp Pulse Resp BP Pulse Ox 99.7 F 86 16 174/70 H 97 08/12/18 15:23 08/12/18 15:23 08/12/18 15:23 08/12/18 15:23 08/12/18 15:23 Intake & Output 08/11/18 08/12/18 08/13/18 06:59 06:59 06:59 Intake Total 4157 808 Output Total 150 Balance 4007 808 Weight 125 kg Exam: General appearance: No acute distress, cooperative, well-developed, well- nourished Head exam: PRESENT: atraumatic, normocephalic Eye exam: PRESENT: Conjunctiva slightly pale, EOMI, PERRLA. ABSENT: conjunctival injection, scleral icterus Mouth exam: PRESENT: moist, neck supple, tongue midline Neck exam: PRESENT: full ROM. ABSENT: carotid bruit, JVD, lymphadenopathy, thyromegaly Respiratory exam: PRESENT: clear to auscultation bilaterally. ABSENT: rales, rhonchi, stridor, wheezes Cardiovascular exam: PRESENT: RRR, +S1, +S2. ABSENT: systolic murmur Pulses: PRESENT: normal radial pulses, normal dorsalis pedis pulses GI/Abdominal exam: PRESENT: normal bowel sounds, soft. ABSENT: guarding, mass, tenderness Rectal exam: Deferred Extremities exam: PRESENT: full ROM. Trace bilateral lower extremity pitting edema ABSENT: calf tenderness Musculoskeletal: PRESENT: full ROM. ABSENT: deformity Neurological exam: PRESENT: alert, Awake, Oriented to person, Oriented to place, Oriented to time, reflexes normal, CN II-XII grossly intact. ABSENT: motor sensory deficit Psychiatric exam: PRESENT: appropriate affect, normal mood. ABSENT: homicidal ideation, suicidal ideation Skin exam: PRESENT: intact, dry, warm. Left arm has mild erythema in the antecubital area with warmth and swelling ABSENT: rash Results Laboratory Results: 08/12/18 06:14 08/12/18 06:14 08/11/18 08/11/18 08/11/18 18:17 18:17 22:40 WBC 20.6 H D RBC 3.65 L Hgb 11.3 L Hct 33.5 L MCV 92 MCH 30.9 MCHC 33.7 RDW 13.8 Plt Count 223 Seg Neutrophils % Not Reportable Lymphocytes % Not Reportable Monocytes % Not Reportable Eosinophils % Not Reportable Basophils % Not Reportable Absolute Neutrophils Not Reportable Absolute Lymphocytes Not Reportable Absolute Monocytes Not Reportable Absolute Eosinophils Not Reportable Absolute Basophils Not Reportable Carbonic Acid HCO3/H2CO3 Ratio ABG pH ABG pCO2 ABG pO2 ABG HCO3 ABG O2 Saturation ABG Base Excess FiO2 Sodium 138.0 Potassium 4.5 Chloride 108 H Carbon Dioxide 20 L Anion Gap 10 BUN 61 H Creatinine 3.68 H Est GFR ( Amer) 21 L Est GFR (Non-Af Amer) 17 L Glucose 183 H Lactic Acid 0.5 L Calcium 8.8 Total Bilirubin 1.1 AST 37 ALT 37 Alkaline Phosphatase 54 Total Protein 5.5 L Albumin 3.1 L 08/12/18 08/12/18 08/12/18 02:48 06:14 06:14 WBC 15.1 H RBC 3.06 L Hgb 9.8 L Hct 28.2 L MCV 92 MCH 32.0 MCHC 34.8 RDW 13.4 Plt Count 153 Seg Neutrophils % 86.5 H Lymphocytes % 6.1 L Monocytes % 7.0 Eosinophils % 0.0 Basophils % 0.4 Absolute Neutrophils 13.0 H Absolute Lymphocytes 0.9 Absolute Monocytes 1.1 Absolute Eosinophils 0.0 Absolute Basophils 0.1 Carbonic Acid 0.94 L HCO3/H2CO3 Ratio 20:1 ABG pH 7.41 ABG pCO2 31.2 L ABG pO2 78.5 L ABG HCO3 19.2 L ABG O2 Saturation 95.9 ABG Base Excess -4.8 FiO2 21% Sodium 137.6 Potassium 4.0 Chloride 111 H Carbon Dioxide 17 L Anion Gap 10 BUN 57 H Creatinine 3.53 H Est GFR ( Amer) 22 L Est GFR (Non-Af Amer) 18 L Glucose 141 H Lactic Acid Calcium 8.0 L Total Bilirubin AST ALT Alkaline Phosphatase Total Protein Albumin Impressions: Forearm X-Ray 08/11/18 20:38 IMPRESSION: No acute abnormality. Assessment & Plan - Diagnosis (1) Left arm cellulitis Is this a current diagnosis for this admission?: Yes Plan: On IV antibiotics. Patient is both on IV cefazolin and vancomycin which I think he probably just needs one. If he will be on vancomycin vancomycin level should be monitored and dose of vancomycin adjusted accordingly. Will defer management to the hospitalist service. (2) CKD (chronic kidney disease) stage 4, GFR 15-29 ml/min Is this a current diagnosis for this admission?: Yes Plan: Due to diabetic nephropathy and hypertensive nephrosclerosis associated with nephrotic range proteinuria. Currently at his baseline kidney function. No need for initiation of any renal replacement therapy at this time. Monitor kidney function periodically during his admission. (3) Diabetic nephropathy Qualifiers: Diabetes mellitus type: type 2 Qualified Code(s): E11.21 - Type 2 diabetes mellitus with diabetic nephropathy Is this a current diagnosis for this admission?: Yes Plan: With nephrotic range proteinuria. (4) Hypertension Is this a current diagnosis for this admission?: Yes Plan: Blood pressure acceptable actually within target goal for him. We will add spironolactone 25 mg p.o. daily and monitor potassium. I will discontinue potassium supplement due to addition of spironolactone. (5) Anemia in chronic kidney disease (CKD) Qualifiers: Chronic kidney disease stage: stage 3 (moderate) Qualified Code(s): N18.3 - Chronic kidney disease, stage 3 (moderate); D63.1 - Anemia in chronic kidney disease Is this a current diagnosis for this admission?: Yes (6) Diabetes mellitus type 2 in obese Is this a current diagnosis for this admission?: Yes (7) Nephrotic range proteinuria Is this a current diagnosis for this admission?: Yes - Notes Notes: Thank you very much for this consultation. Continue current management. - Time Time Spent: 50 to 70 Minutes
[2018-08-12] MEDS ORDERED: POTASSIUM CHLORIDE 10 MEQ CAPSULE.ER PO SCH (18:00)
[2018-08-12] MEDS ORDERED: (PENDING PHARMACY ID) (Potassium Chloride [Klor-Con M20] 20 MEQ) PO SCH (18:00)
[2018-08-12] MEDS: SPIRONOLACTONE 25 MG TABLET PO SCH (18:29)
[2018-08-12] MEDS: CLONAZEPAM 1 MG TABLET PO SCH (21:22)
[2018-08-12] MEDS: VANCOMYCIN HCL 1,500 MG in DEXTROSE 5%-WATER 250 ML IV SCH (21:23)
[2018-08-13] MEDS: CEFAZOLIN 2 GM/D5W RTU 2 GM/50 ML RTUPB IV SCH ×4 (00:27→17:29)
[2018-08-13] MEDS: HEPARIN SOD (PORCINE) 5,000 UNIT/ML 1 ML SYRINGE SUBCUT SCH ×3 (05:10→21:19)
[2018-08-13] MEDS: HYDROCODONE/ACETAMINOPHEN 7.5-325 MG TABLET PO SCH ×3 (05:10→21:17)
[2018-08-13 06:55] LABS: ABSOLUTE BASOPHILS # (AUTO) 0.1 10^3/uL (0.0-0.2); ABSOLUTE MONOCYTES (AUTO) 0.7 10^3/uL (0.1-1.4); ABSOLUTE NEUT (AUTO) 8.4 10^3/uL (1.7-8.2); BASOPHILS % (AUTO) 0.7 % (0-2); EOSINOPHILS % (AUTO) 0.4 % (0-6); HEMATOCRIT 24.3 % (37.9-51.0); HEMOGLOBIN 8.4 g/dL (13.5-17.0); LYMPHOCYTES % (AUTO) 9.8 % (13-45); MEAN CORPUSCULAR HGB CONC 34.7 g/dL (32.0-36.0); MEAN CORPUSCULAR VOLUME 92 fl (80-97); PLATELET COUNT 154 10^3/uL (150-450); RED BLOOD COUNT 2.63 10^6/uL (4.35-5.55); RED CELL DISTRIBUTION WIDTH 13.9 % (11.5-14.0); SEGMENTED NEUTROPHILS % (AUTO) 82.1 % (42-78); TOTAL CELLS COUNTED % (AUTO) 100 %; WHITE BLOOD COUNT 10.2 10^3/uL (4.0-10.5)
[2018-08-13 07:20] LABS: ANION GAP 9 (5-19); BLOOD UREA NITROGEN 51 mg/dL (7-20); CARBON DIOXIDE 17 mmol/L (22-30); CHLORIDE 113 mmol/L (98-107); GLUCOSE 126 mg/dL (75-110); POTASSIUM 3.5 mmol/L (3.6-5.0); SODIUM 138.9 mmol/L (137-145)
[2018-08-13 07:33] LABS: CALCIUM 6.9 mg/dL (8.4-10.2)
[2018-08-13] MEDS: INSULIN LISPRO 100 UNIT/ML 3 ML VIAL SUBCUT SCH ×3 (07:44→16:32)
[2018-08-13] MEDS: ACETAMINOPHEN 325 MG TABLET PO PRN ×2 (09:15→20:03)
[2018-08-13] MEDS: LISINOPRIL 10 MG TABLET PO SCH (09:15)
[2018-08-13] MEDS: METOPROLOL TARTRATE 100 MG TABLET PO SCH ×2 (09:16→21:18)
[2018-08-13] MEDS: HYDRALAZINE HCL 50 MG TABLET PO SCH ×3 (09:16→17:29)
[2018-08-13] MEDS: ATORVASTATIN CALCIUM 80 MG TABLET PO SCH (09:16)
[2018-08-13] MEDS: AMLODIPINE BESYLATE 10 MG TABLET PO SCH (09:16)
[2018-08-13] MEDS: DOCUSATE SODIUM 100 MG CAPSULE PO SCH ×2 (09:16→17:29)
[2018-08-13] MEDS: SPIRONOLACTONE 25 MG TABLET PO SCH (09:16)
[2018-08-13] MEDS ORDERED: LISINOPRIL 10 MG TABLET PO SCH (10:00)
--- NOTE | 2018-08-13 11:07 | XCELERA REPORT ---
[address] [address] Upper Extremity Venous Evaluation Name: EULALIO CLARI RHODES JR Age: 58 yrs Gender: Male : 1960 Patient Status: Inpatient Patient Location: [address] [place] [address] Study Date: 08/12/2018 05:24 PM Procedure: Unilateral duplex scan of the left upper extremity veins was performed, including responses to compression and other maneuvers. Reason For Study: left arm edema Ordering Physician: SHAYLEE LINDSAY Performed By: Monica Figueroa Left Sided Venous Evaluation Echogenic content in enlarged vein, from mid forearm to wrist in Cephalic vein. Otherwise normal vessel filling wall to wall, compression and augmentation as well as Colour flow in deep veins. Interpretation Summary No duplex evidence of DVT or obstruction in the left upper extremity. Superficial Phlebitis in the Cephalic vein. : SHAYLEE LINDSAY [place]
[2018-08-13] MEDS ORDERED: POTASSIUM CHLORIDE 10 MEQ CAPSULE.ER PO ONE (12:15)
--- NOTE | 2018-08-13 15:25 | PDOC PROGRESS REPORT ---
Subjective Progress Note for:: 08/13/18 Subjective:: Patient seen resting in bed. His is at the bedside. He denies any chest pain, shortness of breath or dyspnea at rest. He denies any nausea, vomiting or abdominal pain. He denies fever or chills overnight. His left arm redness he feels is improved. He denies any dysuria or diarrhea. He denies any headache or dizziness. He denies any significant arthralgias or myalgias. Remaining review of systems are negative. Reason For Visit: RIGHT ARM CELLULITIS, DM, HTN, CKD4, ZACH, MORBID Physical Exam Vital Signs: Temp Pulse Resp BP Pulse Ox 98.2 F 66 18 126/67 H 95 08/13/18 11:38 08/13/18 14:00 08/13/18 11:38 08/13/18 11:38 08/13/18 11:38 Intake & Output 08/12/18 08/13/18 08/14/18 06:59 06:59 06:59 Intake Total 4157 1633 1085 Output Total 150 650 800 Balance 4007 983 285 Weight 125 kg 122.3 kg General appearance: PRESENT: no acute distress, obese, well-developed, well- nourished Head exam: PRESENT: atraumatic, normocephalic Eye exam: PRESENT: conjunctiva pink, EOMI, PERRLA. ABSENT: scleral icterus Ear exam: PRESENT: normal external ear exam Mouth exam: PRESENT: moist, tongue midline Neck exam: ABSENT: carotid bruit, JVD, lymphadenopathy, thyromegaly Respiratory exam: PRESENT: clear to auscultation octavia. ABSENT: rales, rhonchi, wheezes Cardiovascular exam: PRESENT: RRR. ABSENT: diastolic murmur, rubs, systolic murmur Pulses: PRESENT: normal dorsalis pedis pul Vascular exam: PRESENT: normal capillary refill GI/Abdominal exam: PRESENT: normal bowel sounds, soft. ABSENT: distended, guarding, mass, organolmegaly, rebound, tenderness Rectal exam: PRESENT: deferred Extremities exam: PRESENT: full ROM, tenderness. ABSENT: calf tenderness, clubbing, pedal edema Neurological exam: PRESENT: alert, awake, oriented to person, oriented to place, oriented to time, oriented to situation, CN II-XII grossly intact. ABSENT: motor sensory deficit Psychiatric exam: PRESENT: appropriate affect, normal mood. ABSENT: homicidal ideation, suicidal ideation Skin exam: PRESENT: dry - left antecubital fossa, erythema, warm Results Laboratory Results: 08/13/18 06:15 08/13/18 06:15 08/13/18 08/13/18 06:15 06:15 WBC 10.2 RBC 2.63 L Hgb 8.4 L Hct 24.3 L MCV 92 MCH 32.0 MCHC 34.7 RDW 13.9 Plt Count 154 Seg Neutrophils % 82.1 H Lymphocytes % 9.8 L Monocytes % 7.0 Eosinophils % 0.4 Basophils % 0.7 Absolute Neutrophils 8.4 H Absolute Lymphocytes 1.0 Absolute Monocytes 0.7 Absolute Eosinophils 0.0 Absolute Basophils 0.1 Sodium 138.9 Potassium 3.5 L Chloride 113 H Carbon Dioxide 17 L Anion Gap 9 BUN 51 H Creatinine 3.08 H Est GFR ( Amer) 25 L Est GFR (Non-Af Amer) 21 L Glucose 126 H Calcium 6.9 L* Impressions: Forearm X-Ray 08/11/18 20:38 IMPRESSION: No acute abnormality. Assessment & Plan - Diagnosis (1) Gram-positive cocci bacteremia Is this a current diagnosis for this admission?: Yes Plan: Patient has 2 out of 2 positive blood cultures for gram-positive cocci. We will continue IV Ancef and vancomycin until cultures resolved to see if it is MRSA. Repeat blood cultures x2 (2) Left arm cellulitis Is this a current diagnosis for this admission?: Yes Plan: Improving. Continue antibiotics (3) Fever Qualifiers: Fever type: unspecified Qualified Code(s): R50.9 - Fever, unspecified Is this a current diagnosis for this admission?: Yes Plan: Resolved (4) Hyperlipidemia Qualifiers: Hyperlipidemia type: unspecified Qualified Code(s): E78.5 - Hyperlipidemia, unspecified Is this a current diagnosis for this admission?: Yes Plan: Continue statin (5) Hypertension Is this a current diagnosis for this admission?: Yes Plan: Presently normotensive on current medications (6) Stage III chronic kidney disease Is this a current diagnosis for this admission?: Yes Plan: Nephrology is consulted. Creatinine is at baseline. (7) Type 2 diabetes mellitus Is this a current diagnosis for this admission?: Yes Plan: Continue current meds and sliding scale coverage (8) Anemia in chronic kidney disease (CKD) Qualifiers: Chronic kidney disease stage: stage 3 (moderate) Qualified Code(s): N18.3 - Chronic kidney disease, stage 3 (moderate); D63.1 - Anemia in chronic kidney dis ease Is this a current diagnosis for this admission?: Yes Plan: Stable (9) Diabetic nephropathy Qualifiers: Diabetes mellitus type: type 2 Qualified Code(s): E11.21 - Type 2 diabetes mellitus with diabetic nephropathy Is this a current diagnosis for this admission?: Yes (10) Obstructive sleep apnea Is this a current diagnosis for this admission?: Yes Plan: CPAP at at bedtime - Time Time Spent with patient: 25-34 minutes Total Critical Time (Minutes): 30 Medications reviewed and adjusted accordingly: Yes Anticipated discharge: Home Within: within 48 hours - Inpatient Certification Based on my medical assessment, after consideration of the patient's comorbidities, presenting symptoms, or acuity I expect that the services needed warrant INPATIENT care.: Yes I certify that my determination is in accordance with my understanding of Medicare's requirements for reasonable and necessary INPATIENT services [42 CFR 412.3e].: Yes Medical Necessity: Need for IV Antibiotics, Risk of Complication if Not Cared For in Hospital
[2018-08-13] MEDS: CLONAZEPAM 1 MG TABLET PO SCH (21:18)
[2018-08-13] MEDS: VANCOMYCIN HCL 1,500 MG in DEXTROSE 5%-WATER 250 ML IV SCH (21:18)
[2018-08-14] MEDS: CEFAZOLIN 2 GM/D5W RTU 2 GM/50 ML RTUPB IV SCH ×2 (00:44→05:11)
[2018-08-14] MEDS: HEPARIN SOD (PORCINE) 5,000 UNIT/ML 1 ML SYRINGE SUBCUT SCH ×3 (05:11→22:32)
[2018-08-14] MEDS: HYDROCODONE/ACETAMINOPHEN 7.5-325 MG TABLET PO SCH (05:11)
[2018-08-14 07:10] LABS: ABSOLUTE LYMPHOCYTES (AUTO) 0.9 10^3/uL (0.5-4.7); ABSOLUTE MONOCYTES (AUTO) 0.7 10^3/uL (0.1-1.4); ABSOLUTE NEUT (AUTO) 10.2 10^3/uL (1.7-8.2); BASOPHILS % (AUTO) 0.3 % (0-2); EOSINOPHILS % (AUTO) 0.3 % (0-6); HEMATOCRIT 28.4 % (37.9-51.0); HEMOGLOBIN 9.8 g/dL (13.5-17.0); LYMPHOCYTES % (AUTO) 7.4 % (13-45); MEAN CORPUSCULAR HEMOGLOBIN 31.5 pg (27.0-33.4); MEAN CORPUSCULAR HGB CONC 34.4 g/dL (32.0-36.0); MEAN CORPUSCULAR VOLUME 91 fl (80-97); MONOCYTES % (AUTO) 6.3 % (3-13); PLATELET COUNT 187 10^3/uL (150-450); RED BLOOD COUNT 3.11 10^6/uL (4.35-5.55); RED CELL DISTRIBUTION WIDTH 13.8 % (11.5-14.0); SEGMENTED NEUTROPHILS % (AUTO) 85.7 % (42-78); TOTAL CELLS COUNTED % (AUTO) 100 %; WHITE BLOOD COUNT 11.9 10^3/uL (4.0-10.5)
[2018-08-14] MEDS: INSULIN LISPRO 100 UNIT/ML 3 ML VIAL SUBCUT SCH ×3 (07:25→17:28)
[2018-08-14 07:39] LABS: ANION GAP 9 (5-19); BLOOD UREA NITROGEN 49 mg/dL (7-20); CALCIUM 7.8 mg/dL (8.4-10.2); CARBON DIOXIDE 20 mmol/L (22-30); CHLORIDE 109 mmol/L (98-107); GLUCOSE 132 mg/dL (75-110); SODIUM 137.7 mmol/L (137-145)
[2018-08-14] MEDS: ATORVASTATIN CALCIUM 80 MG TABLET PO SCH (09:15)
[2018-08-14] MEDS: SPIRONOLACTONE 25 MG TABLET PO SCH (09:16)
[2018-08-14] MEDS: HYDRALAZINE HCL 50 MG TABLET PO SCH ×3 (09:16→17:34)
[2018-08-14] MEDS: AMLODIPINE BESYLATE 10 MG TABLET PO SCH (09:16)
[2018-08-14] MEDS: METOPROLOL TARTRATE 100 MG TABLET PO SCH ×2 (09:16→22:32)
[2018-08-14] MEDS: DOCUSATE SODIUM 100 MG CAPSULE PO SCH ×3 (09:17→17:36)
[2018-08-14] MEDS: LISINOPRIL 10 MG TABLET PO SCH (09:17)
[2018-08-14] MEDS ORDERED: ONDANSETRON HCL INJ/PF 4 MG/2 ML SDV IV PRN (09:33)
[2018-08-14] MEDS: HYDROCODONE/ACETAMINOPHEN 7.5-325 MG TABLET PO PRN ×3 (09:49→19:53)
[2018-08-14] MEDS: ACETAMINOPHEN 325 MG TABLET PO PRN (13:11)
[2018-08-14] MEDS ORDERED: CEFAZOLIN 2 GM/D5W RTU 2 GM/50 ML RTUPB IV SCH (14:00)
--- NOTE | 2018-08-14 15:49 | PDOC PROGRESS REPORT ---
Subjective Progress Note for:: 08/14/18 Subjective:: Patient seen resting in a chair. His is at the bedside. He denies any chest pain, shortness of breath or dyspnea at rest. He denies any nausea, vomiting or abdominal pain. He denies fever or chills overnight. His left arm redness he feels is improved. Left forearm is still swollen tender. Venous duplex showed just a superficial thrombophlebitis. He denies any dysuria or diarrhea. He denies any headache or dizziness. He denies any significant arthralgias or myalgias. Remaining review of systems are negative. Reason For Visit: RIGHT ARM CELLULITIS, DM, HTN, CKD4, ZACH, MORBID Physical Exam Vital Signs: Temp Pulse Resp BP Pulse Ox 98.5 F 68 16 154/71 H 94 08/14/18 15:02 08/14/18 15:02 08/14/18 15:02 08/14/18 15:02 08/14/18 15:02 Intake & Output 08/13/18 08/14/18 08/15/18 06:59 06:59 06:59 Intake Total 1633 1929 444 Output Total 650 2425 Balance 983 -496 444 Weight 122.3 kg 127.9 kg General appearance: PRESENT: no acute distress, obese, well-developed, well- nourished Head exam: PRESENT: atraumatic, normocephalic Eye exam: PRESENT: conjunctiva pink, EOMI, PERRLA. ABSENT: scleral icterus Ear exam: PRESENT: normal external ear exam Mouth exam: PRESENT: moist, tongue midline Neck exam: ABSENT: carotid bruit, JVD, lymphadenopathy, thyromegaly Respiratory exam: PRESENT: clear to auscultation octavia. ABSENT: rales, rhonchi, wheezes Cardiovascular exam: PRESENT: bradycardia Pulses: PRESENT: normal dorsalis pedis pul Vascular exam: PRESENT: normal capillary refill GI/Abdominal exam: PRESENT: normal bowel sounds, soft. ABSENT: distended, guarding, mass, organolmegaly, rebound, tenderness Rectal exam: PRESENT: deferred Extremities exam: PRESENT: full ROM, +2 edema - left forearm. ABSENT: calf tenderness, clubbing, pedal edema Musculoskeletal exam: PRESENT: ambulatory Neurological exam: PRESENT: alert, awake, oriented to person, oriented to place, oriented to time, oriented to situation, CN II-XII grossly intact. ABSENT: motor sensory deficit Psychiatric exam: PRESENT: appropriate affect, normal mood. ABSENT: homicidal ideation, suicidal ideation Skin exam: PRESENT: dry Results Laboratory Results: 08/14/18 06:40 08/14/18 06:40 08/14/18 08/14/18 06:40 06:40 WBC 11.9 H RBC 3.11 L Hgb 9.8 L Hct 28.4 L MCV 91 MCH 31.5 MCHC 34.4 RDW 13.8 Plt Count 187 Seg Neutrophils % 85.7 H Lymphocytes % 7.4 L Monocytes % 6.3 Eosinophils % 0.3 Basophils % 0.3 Absolute Neutrophils 10.2 H Absolute Lymphocytes 0.9 Absolute Monocytes 0.7 Absolute Eosinophils 0.0 Absolute Basophils 0.0 Sodium 137.7 Potassium 4.0 Chloride 109 H Carbon Dioxide 20 L Anion Gap 9 BUN 49 H Creatinine 3.19 H Est GFR ( Amer) 24 L Est GFR (Non-Af Amer) 20 L Glucose 132 H Calcium 7.8 L Impressions: Forearm X-Ray 08/11/18 20:38 IMPRESSION: No acute abnormality. Assessment & Plan - Diagnosis (1) Gram-positive cocci bacteremia Is this a current diagnosis for this admission?: Yes Plan: Patient has 2 out of 2 positive blood cultures for gram-positive cocci. We will continue IV Ancef and vancomycin until cultures resolved to see if it is MRSA. Repeat blood cultures x2 (2) Left arm cellulitis Is this a current diagnosis for this admission?: Yes Plan: Improving. Continue antibiotics (3) Fever Qualifiers: Fever type: unspecified Qualified Code(s): R50.9 - Fever, unspecified Is this a current diagnosis for this admission?: Yes Plan: Resolved (4) Hyperlipidemia Qualifiers: Hyperlipidemia type: unspecified Qualified Code(s): E78.5 - Hyperlipidemia, unspecified Is this a current diagnosis for this admission?: Yes Plan: Continue statin (5) Hypertension Is this a current diagnosis for this admission?: Yes Plan: Presently normotensive on current medications (6) Stage III chronic kidney disease Is this a current diagnosis for this admission?: Yes Plan: Nephrology is consulted. Creatinine is at baseline. (7) Type 2 diabetes mellitus Is this a current diagnosis for this admission?: Yes Plan: Continue current meds and sliding scale coverage (8) Anemia in chronic kidney disease (CKD) Qualifiers: Chronic kidney disease stage: stage 3 (moderate) Qualified Code(s): N18.3 - Chronic kidney disease, stage 3 (moderate); D63.1 - Anemia in chronic kidney disease Is this a current diagnosis for this admission?: Yes Plan: Stable (9) Diabetic nephropathy Qualifiers: Diabetes mellitus type: type 2 Qualified Code(s): E11.21 - Type 2 diabetes mellitus with diabetic nephropathy Is this a current diagnosis for this admission?: Yes (10) Obstructive sleep apnea Is this a current diagnosis for this admission?: Yes Plan: CPAP at at bedtime - Time Time Spent with patient: 25-34 minutes Total Critical Time (Minutes): 20 Medications reviewed and adjusted accordingly: Yes Within: within 48 hours - Inpatient Certification Based on my medical assessment, after consideration of the patient's comor bidities, presenting symptoms, or acuity I expect that the services needed warrant INPATIENT care.: Yes I certify that my determination is in accordance with my understanding of Medicare's requirements for reasonable and necessary INPATIENT services [42 CFR 412.3e].: Yes Medical Necessity: Need for IV Antibiotics, Risk of Complication if Not Cared For in Hospital
--- NOTE | 2018-08-14 16:27 | Progress Note ---
Provider Note Provider Note: 08/14/2018 1420 Called by microbiology lab regarding blood cultures. One set was positive for MRSA, the other staph aureus. Will d/c ancef
[2018-08-14 22:25] LABS: VANCOMYCIN,TROUGH 19.3 ug/mL (5.0-20.0)
[2018-08-14] MEDS: CLONAZEPAM 1 MG TABLET PO SCH (22:32)
[2018-08-14] MEDS: VANCOMYCIN HCL 1,500 MG in DEXTROSE 5%-WATER 250 ML IV SCH (22:33)
[2018-08-15] MEDS: HYDROCODONE/ACETAMINOPHEN 7.5-325 MG TABLET PO PRN ×5 (01:41→21:35)
[2018-08-15] MEDS: HEPARIN SOD (PORCINE) 5,000 UNIT/ML 1 ML SYRINGE SUBCUT SCH ×3 (06:11→21:34)
[2018-08-15] MEDS: INSULIN LISPRO 100 UNIT/ML 3 ML VIAL SUBCUT SCH ×3 (07:31→16:38)
[2018-08-15] MEDS: HYDRALAZINE HCL 50 MG TABLET PO SCH ×3 (09:27→17:10)
[2018-08-15] MEDS: DOCUSATE SODIUM 100 MG CAPSULE PO SCH ×2 (09:27→17:11)
[2018-08-15] MEDS: METOPROLOL TARTRATE 100 MG TABLET PO SCH ×2 (09:28→21:36)
[2018-08-15] MEDS: SPIRONOLACTONE 25 MG TABLET PO SCH (09:28)
[2018-08-15] MEDS: ATORVASTATIN CALCIUM 80 MG TABLET PO SCH (09:28)
[2018-08-15] MEDS: LISINOPRIL 10 MG TABLET PO SCH (09:28)
[2018-08-15] MEDS: AMLODIPINE BESYLATE 10 MG TABLET PO SCH (09:28)
[2018-08-15] MEDS ORDERED: HYDROCODONE/ACETAMINOPHEN 7.5-325 MG TABLET PO ONE (16:47)
[2018-08-15] MEDS: VANCOMYCIN HCL 1,250 MG in DEXTROSE 5%-WATER 250 ML IV SCH (17:11)
--- NOTE | 2018-08-15 17:15 | PDOC PROGRESS REPORT ---
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 Patient was seen on morning rounds. He was seen resting comfortably in the recliner on room air. He reports continued pain to his left forearm. He is concerned that the swelling seems to have progressed to include his lower bicep and that the arm has increased sensation of tightness. He denies fever, chills, chest pain, palpitations, dyspnea, orthopnea, abdominal pain, nausea vomiting and diarrhea. He has no other questions or concerns. Reason For Visit: RIGHT ARM CELLULITIS, DM, HTN, CKD4, ZACH, MORBID Physical Exam Vital Signs: Temp Pulse Resp BP Pulse Ox 98.5 F 72 20 152/66 H 98 08/15/18 15:05 08/15/18 15:05 08/15/18 15:05 08/15/18 15:05 08/15/18 15:05 Intake & Output 08/14/18 08/15/18 08/16/18 06:59 06:59 06:59 Intake Total 1929 1202 534 Output Total 2425 1053 151 Balance -496 149 383 Weight 127.9 kg 127.5 kg General appearance: PRESENT: no acute distress, obese, well-developed, well- nourished Head exam: PRESENT: atraumatic, normocephalic Eye exam: PRESENT: conjunctiva pink, EOMI, PERRLA. ABSENT: scleral icterus Mouth exam: PRESENT: moist, tongue midline Neck exam: ABSENT: carotid bruit, JVD, lymphadenopathy, thyromegaly Respiratory exam: PRESENT: clear to auscultation octavia, symmetrical, unlabored. ABSENT: rales, rhonchi, wheezes Cardiovascular exam: PRESENT: RRR, +S1, +S2. ABSENT: diastolic murmur, rubs, systolic murmur Pulses: PRESENT: normal dorsalis pedis pul Vascular exam: PRESENT: normal capillary refill GI/Abdominal exam: PRESENT: normal bowel sounds, soft. ABSENT: distended, guar ding, mass, organolmegaly, rebound, tenderness Rectal exam: PRESENT: deferred Extremities exam: PRESENT: full ROM, tenderness - LUE, +2 edema - left forearm. ABSENT: calf tenderness, clubbing, pedal edema Neurological exam: PRESENT: alert, awake, oriented to person, oriented to place, oriented to time, oriented to situation, CN II-XII grossly intact. ABSENT: motor sensory deficit Psychiatric exam: PRESENT: appropriate affect, normal mood. ABSENT: homicidal ideation, suicidal ideation Skin exam: PRESENT: dry, erythema - circumfrencial to left forearm, intact, warm. ABSENT: cyanosis, rash Results Laboratory Results: 08/14/18 06:40 08/14/18 06:40 08/11/18 18:17 Blood Blood Culture - Final Staphylococcus Aureus Impressions: Forearm X-Ray 08/11/18 20:38 IMPRESSION: No acute abnormality. Assessment & Plan - Diagnosis (1) Left arm cellulitis Is this a current diagnosis for this admission?: Yes Plan: Improving; Leukocytosis is improved; 20-> 11.9. Patient has been afebrile > 48 hours. Possibly related to PIP during previous admission. Patient presents with erythema, edema, and tenderness to left forearm. Blood cultures positive for gram-positive cocci. Received call from [employer] today; previously reported staph aureus is under review. [facility] does not believe that he has staph aureus bacteremia. Will update provider as cultures are clarified. Repeat blood cultures after IV Ancef and vancomycin are negative at 48 hours. Doppler reveals superficial phlebitis in the cephalic vein Continue IV Ancef and vancomycin. Elevate extremity as able. Analgesics as needed. (2) Superficial phlebitis Is this a current diagnosis for this admission?: Yes Plan: Evaluation and primary management as above. Daily aspirin therapy. Heparin for DVT prophylaxis. Continue to measure circumference daily. No indications for chronic anticoagulation. (3) Hyperlipidemia Qualifiers: Hyperlipidemia type: unspecified Qualified Code(s): E78.5 - Hyperlipidemia, unspecified Is this a current diagnosis for this admission?: Yes Plan: Cardiac diet; continue daily statin. (4) Hypertension Is this a current diagnosis for this admission?: Yes Plan: Overall improved; slightly elevated today 152/66. Complicated by acute pain. Cardiac diet. Continue home medication regiment of and amlodipine, lisinopril, hydralazine, spironolactone, metoprolol IV Hydralazine as needed for BP control. (5) Stage III chronic kidney disease Is this a current diagnosis for this admission?: Yes Plan: Creatinine is at baseline. Will avoid nephrotoxic medications as able. Pharmacy to dose vancomycin. Nephrology is consulted; appreciate their evaluation recommendations. (6) Type 2 diabetes mellitus Qualifiers: Diabetes mellitus long chain beamer insulin use: without long chain beamer use Is this a current diagnosis for this admission?: Yes Plan: Consistent carb diet. Accu-Cheks before meals and at bedtime with Humalog for sliding scale coverage. (7) Anemia in chronic kidney disease (CKD) Qualifiers: Chronic kidney disease stage: stage 3 (moderate) Qualified Code(s): N18.3 - Chronic kidney disease, stage 3 (moderate); D63.1 - Anemia in chronic kidney disease Is this a current diagnosis for this admission?: Yes Plan: Stable; hemoglobin 9.8. Secondary to chronic kidney disease. (8) Diabetic nephropathy Qualifiers: Diabetes mellitus type: type 2 Qualified Code(s): E11.21 - Type 2 diabetes mellitus with diabetic nephropathy Is this a current diagnosis for this admission?: Yes Plan: Maintain adequate glucose control. Analgesics as needed. (9) Obstructive sleep apnea Is this a current diagnosis for this admission?: Yes Plan: CPAP nightly. Advised dietary discretion for weight loss. (10) Gram-positive bacteremia Is this a current diagnosis for this admission?: Yes Plan: First set of cultures (08/11/2018) growing for gram-positive cocci in 4 of 4 bottles Previously reported 2 of 4 bottles as staph aureus; received call from [facility] today. They are concerned that upon review it does not appear that he is growing staph. Cultures are to be reevaluated in the a.m.; will update as results are clarified. Repeat blood cultures (08/13/2018) following Ancef and vancomycin have no growth at 48 hours. We will continue antibiotics as above and adjust as clinically indicated. (11) Fever Qualifiers: Fever type: unspecified Qualified Code(s): R50.9 - Fever, unspecified Is this a current diagnosis for this admission?: Yes Plan: Resolved; secondary to #1. - Time Time Spent with patient: 15-24 minutes Medications reviewed and adjusted accordingly: Yes Anticipated discharge: Home
[2018-08-15] MEDS: CEFAZOLIN 1 GM/D5W RTU 1 GM/50 ML RTUPB IV SCH ×2 (19:37→23:52)
[2018-08-15] MEDS: ACETAMINOPHEN 325 MG TABLET PO PRN (19:46)
[2018-08-15] MEDS: CLONAZEPAM 1 MG TABLET PO SCH (21:36)
[2018-08-16] MEDS: HYDROCODONE/ACETAMINOPHEN 7.5-325 MG TABLET PO PRN ×5 (03:22→21:57)
[2018-08-16] MEDS: HEPARIN SOD (PORCINE) 5,000 UNIT/ML 1 ML SYRINGE SUBCUT SCH ×3 (05:15→21:58)
[2018-08-16] MEDS: CEFAZOLIN 1 GM/D5W RTU 1 GM/50 ML RTUPB IV SCH ×2 (05:19→11:54)
[2018-08-16] MEDS: INSULIN LISPRO 100 UNIT/ML 3 ML VIAL SUBCUT SCH ×3 (07:12→17:11)
[2018-08-16 07:37] LABS: HEMATOCRIT 30.4 % (37.9-51.0); HEMOGLOBIN 10.5 g/dL (13.5-17.0); MEAN CORPUSCULAR HEMOGLOBIN 31.4 pg (27.0-33.4); MEAN CORPUSCULAR HGB CONC 34.5 g/dL (32.0-36.0); MEAN CORPUSCULAR VOLUME 91 fl (80-97); PLATELET COUNT 330 10^3/uL (150-450); RED BLOOD COUNT 3.34 10^6/uL (4.35-5.55); RED CELL DISTRIBUTION WIDTH 13.7 % (11.5-14.0); WHITE BLOOD COUNT 9.8 10^3/uL (4.0-10.5)
[2018-08-16 07:48] LABS: ANION GAP 12 (5-19); BLOOD UREA NITROGEN 46 mg/dL (7-20); CALCIUM 8.4 mg/dL (8.4-10.2); CARBON DIOXIDE 21 mmol/L (22-30); CHLORIDE 108 mmol/L (98-107); GLUCOSE 120 mg/dL (75-110); POTASSIUM 3.9 mmol/L (3.6-5.0); SODIUM 140.7 mmol/L (137-145)
[2018-08-16] MEDS: SPIRONOLACTONE 25 MG TABLET PO SCH (09:05)
[2018-08-16] MEDS: ASPIRIN 81 MG TABLET, CHEWABLE PO SCH (09:05)
[2018-08-16] MEDS: ATORVASTATIN CALCIUM 80 MG TABLET PO SCH (09:05)
[2018-08-16] MEDS: AMLODIPINE BESYLATE 10 MG TABLET PO SCH (09:06)
[2018-08-16] MEDS: DOCUSATE SODIUM 100 MG CAPSULE PO SCH ×2 (09:06→17:11)
[2018-08-16] MEDS: LISINOPRIL 10 MG TABLET PO SCH (09:06)
[2018-08-16] MEDS: HYDRALAZINE HCL 50 MG TABLET PO SCH ×4 (09:06→17:11)
[2018-08-16] MEDS: METOPROLOL TARTRATE 100 MG TABLET PO SCH ×2 (09:06→21:56)
[2018-08-16] MEDS: HYDRALAZINE HCL INJ/PF 20 MG/1 ML SDV IV PRN (11:37)
--- NOTE | 2018-08-16 13:52 | PDOC PROGRESS REPORT ---
Subjective Progress Note for:: 08/16/18 Subjective:: 08/16/2018-patient is complaining of diarrhea for the last 3 days. Be going to check for C. difficile. His blood pressures are persistently high. We are going to adjust his medications today. The cultures came back positive for staph aureus is not MRSA. Patient is afebrile. Reason For Visit: RIGHT ARM CELLULITIS, DM, HTN, CKD4, ZACH, MORBID Physical Exam Vital Signs: Temp Pulse Resp BP Pulse Ox 97.7 F 65 16 168/73 H 99 08/16/18 12:00 08/16/18 13:37 08/16/18 12:00 08/16/18 13:37 08/16/18 12:00 Intake & Output 08/15/18 08/16/18 08/17/18 06:59 06:59 06:59 Intake Total 1202 1722 218 Output Total 1053 811 240 Balance 149 911 -22 Weight 127.5 kg 127.9 kg General appearance: PRESENT: no acute distress, obese Head exam: PRESENT: atraumatic Eye exam: PRESENT: PERRLA Mouth exam: PRESENT: moist, tongue midline Teeth exam: PRESENT: poor dentation Neck exam: ABSENT: carotid bruit, JVD, lymphadenopathy, thyromegaly Respiratory exam: PRESENT: clear to auscultation octavia. ABSENT: rales, rhonchi, wheezes Cardiovascular exam: PRESENT: RRR. ABSENT: diastolic murmur, rubs, systolic murmur GI/Abdominal exam: PRESENT: normal bowel sounds, soft. ABSENT: distended, guarding, mass, organolmegaly, rebound, tenderness Extremities exam: PRESENT: full ROM. ABSENT: calf tenderness, clubbing, pedal edema Neurological exam: PRESENT: alert, awake, oriented to person, oriented to place, oriented to time, oriented to situation, CN II-XII grossly intact. ABSENT: motor sensory deficit Psychiatric exam: PRESENT: appropriate affect, normal mood. ABSENT: homicidal ideation, suicidal ideation Results Laboratory Results: 08/16/18 06:53 08/16/18 06:52 08/16/18 08/16/18 06:52 06:53 WBC 9.8 RBC 3.34 L Hgb 10.5 L Hct 30.4 L MCV 91 MCH 31.4 MCHC 34.5 RDW 13.7 Plt Count 330 Sodium 140.7 Potassium 3.9 Chloride 108 H Carbon Dioxide 21 L Anion Gap 12 BUN 46 H Creatinine 3.03 H Est GFR ( Amer) 26 L Est GFR (Non-Af Amer) 21 L Glucose 120 H Calcium 8.4 08/11/18 22:08 Blood Blood Culture - Final Staphylococcus Aureus 08/11/18 18:17 Blood Blood Culture - Final Staphylococcus Aureus Impressions: Forearm X-Ray 08/11/18 20:38 IMPRESSION: No acute abnormality. Assessment & Plan - Diagnosis (1) Left arm cellulitis Is this a current diagnosis for this admission?: Yes Plan: Improving; Leukocytosis is improved; 20-> 11.9. Patient has been afebrile > 48 hours. Possibly related to PIP during previous admission. Patient presents with erythema, edema, and tenderness to left forearm. Blood cultures positive for gram-positive cocci. Received call from [facility] today; previously reported staph aureus is under review. [facility] does not believe that he has staph aureus bacteremia. Will update provider as cultures are clarified. Repeat blood cultures after IV Ancef and vancomycin are negative at 48 hours. Doppler reveals superficial phlebitis in the cephalic vein Continue IV Ancef and vancomycin. Elevate extremity as able. Analgesics as needed. 08/16/2018-patient is admitted with left arm cellulitis the blood cultures came back positive for staph aureus. Not MRSA. Recent is presently on Ancef and IV vancomycin. Plan is to discontinue Ancef and continue IV anti-vancomycin. Patient is afebrile and WBC count is 9.8. Down from 20.6 on admission. (2) Hypertension Is this a current diagnosis for this admission?: No Plan: 08/16/2018-patient blood pressure today is 184/87. Presently he is on amlodipine 10 mg daily, hydralazine 50 mg 3 times daily, hydralazine 10 mg IV every 4 as needed, metoprolol 100 mg every 12 hours, spironolactone 25 mg p.o. daily. He is also receiving lisinopril 40 mg p.o. daily. Plan is to increase the hydralazine to 100 mg p.o. 3 times a day. (3) CKD (chronic kidney disease) stage 3, GFR 30-59 ml/min Is this a current diagnosis for this admission?: No Plan: 08/16/2018-patient has a stage III kidney disease, on admission creatinine is 3.68 today it is 3.03 creatinine is coming down to baseline. (4) Diarrhea Is this a current diagnosis for this admission?: Yes Plan: 08/16/2018-patient is complaining of loose stools for the last 3 days. Stool for C. difficile was sent. Started on p.o. vancomycin 125 mg every 6 hours. (5) Anemia in chronic kidney disease (CKD) Qualifiers: Chronic kidney disease stage: stage 3 (moderate) Qualified Code(s): N18.3 - Chronic kidney disease, stage 3 (moderate); D63.1 - Anemia in chronic kidney disease Is this a current diagnosis for this admission?: No Plan: 08/16/2018 patient has anemia of chronic disease secondary to chronic kidney disease. Hemoglobin is 10.5. Stable. - Time Time Spent with patient: 15-24 minutes Medications reviewed and adjusted accordingly: Yes Anticipated discharge: Home
[2018-08-16] MEDS ORDERED: HYDRALAZINE HCL 50 MG TABLET PO SCH (14:00)
[2018-08-16] MEDS: VANCOMYCIN HCL 1,250 MG in DEXTROSE 5%-WATER 250 ML IV SCH (17:13)
[2018-08-16] MEDS: VANCOMYCIN HCL INJ 500 MG VIAL PO SCH (17:14)
[2018-08-16] MEDS: ACETAMINOPHEN 325 MG TABLET PO PRN (19:59)
[2018-08-16] MEDS: CLONAZEPAM 1 MG TABLET PO SCH (21:57)
[2018-08-16] MEDS ORDERED: CLONAZEPAM 1 MG TABLET PO SCH (22:00)
[2018-08-16] MEDS ORDERED: METOPROLOL TARTRATE 100 MG TABLET PO SCH (22:00)
[2018-08-16] MEDS ORDERED: ATORVASTATIN CALCIUM 80 MG TABLET PO SCH (22:00)
[2018-08-17] MEDS: VANCOMYCIN HCL INJ 500 MG VIAL PO SCH (00:14)
[2018-08-17] MEDS: HEPARIN SOD (PORCINE) 5,000 UNIT/ML 1 ML SYRINGE SUBCUT SCH ×3 (05:28→21:51)
[2018-08-17 07:01] LABS: HEMATOCRIT 27.3 % (37.9-51.0); HEMOGLOBIN 9.4 g/dL (13.5-17.0); MEAN CORPUSCULAR HEMOGLOBIN 31.5 pg (27.0-33.4); MEAN CORPUSCULAR HGB CONC 34.6 g/dL (32.0-36.0); MEAN CORPUSCULAR VOLUME 91 fl (80-97); PLATELET COUNT 280 10^3/uL (150-450); RED CELL DISTRIBUTION WIDTH 13.7 % (11.5-14.0); WHITE BLOOD COUNT 9.2 10^3/uL (4.0-10.5)
[2018-08-17 07:03] LABS: ALANINE AMINOTRANSFERASE 27 U/L (21-72); ALBUMIN 2.3 g/dL (3.5-5.0); ALKALINE PHOSPHATASE 64 U/L (38-126); ANION GAP 9 (5-19); ASPARTATE AMINO TRANSFERASE 40 U/L (17-59); BILIRUBIN,DIRECT 0.2 mg/dL (0.0-0.4); BILIRUBIN,TOTAL 0.2 mg/dL (0.2-1.3); BLOOD UREA NITROGEN 41 mg/dL (7-20); CALCIUM 8.4 mg/dL (8.4-10.2); CARBON DIOXIDE 20 mmol/L (22-30); CHLORIDE 112 mmol/L (98-107); GLUCOSE 121 mg/dL (75-110); POTASSIUM 3.6 mmol/L (3.6-5.0); SODIUM 140.6 mmol/L (137-145); TOTAL PROTEIN 4.7 g/dL (6.3-8.2)
[2018-08-17] MEDS: INSULIN LISPRO 100 UNIT/ML 3 ML VIAL SUBCUT SCH ×3 (07:21→16:24)
[2018-08-17 07:43] LABS: ABSOLUTE LYMPHOCYTES# (MANUAL) 1.4 10^3/uL (0.5-4.7); ABSOLUTE MONOCYTES # (MANUAL) 0.7 10^3/uL (0.1-1.4); ABSOLUTE NEUTROPHILS# (MANUAL) 6.9 10^3/uL (1.7-8.2); BASOPHILS % (MANUAL) 0 % (0-2); EOSINOPHILS % (MANUAL) 2 % (0-6); LYMPHOCYTES % (MANUAL) 9 % (13-45); MONOCYTES % (MANUAL) 8 % (3-13); SEGMENTED NEUTROPHILS % (MAN) 75 % (42-78); TOTAL CELLS COUNTED 100
[2018-08-17 07:45] LABS: OVALOCYTES 1+; PLATELET COMMENT ADEQUATE; POIKILOCYTOSIS 1+; POLYCHROMASIA SLIGHT
[2018-08-17] MEDS: HYDROCODONE/ACETAMINOPHEN 7.5-325 MG TABLET PO PRN ×3 (07:54→21:50)
[2018-08-17] MEDS: ATORVASTATIN CALCIUM 80 MG TABLET PO SCH (09:28)
[2018-08-17] MEDS: DOCUSATE SODIUM 100 MG CAPSULE PO SCH ×2 (09:28→17:51)
[2018-08-17] MEDS: SPIRONOLACTONE 25 MG TABLET PO SCH (09:28)
[2018-08-17] MEDS: HYDRALAZINE HCL 50 MG TABLET PO SCH ×3 (09:28→17:53)
[2018-08-17] MEDS: LISINOPRIL 10 MG TABLET PO SCH (09:29)
[2018-08-17] MEDS: METOPROLOL TARTRATE 100 MG TABLET PO SCH ×2 (09:29→21:49)
[2018-08-17] MEDS: ASPIRIN 81 MG TABLET, CHEWABLE PO SCH (09:29)
[2018-08-17] MEDS: AMLODIPINE BESYLATE 10 MG TABLET PO SCH (09:29)
[2018-08-17] MEDS ORDERED: AMLODIPINE BESYLATE 10 MG TABLET PO SCH (10:00)
--- NOTE | 2018-08-17 16:17 | PDOC PROGRESS REPORT ---
Subjective Progress Note for:: 08/17/18 Subjective:: 08/16/2018-patient is complaining of diarrhea for the last 3 days. Be going to check for C. difficile. His blood pressures are persistently high. We are going to adjust his medications today. The cultures came back positive for staph aureus is not MRSA. Patient is afebrile. 08/17/2018-no acute events in the last 24 hours. Not complains of diarrhea. C. difficile was negative. Blood pressure is relatively controlled. Patient is comfortable in the bed not in distress. Denies any complaints. Reason For Visit: RIGHT ARM CELLULITIS, DM, HTN, CKD4, ZACH, MORBID Physical Exam Vital Signs: Temp Pulse Resp BP Pulse Ox 98.4 F 61 18 154/60 H 97 08/17/18 11:03 08/17/18 14:00 08/17/18 11:03 08/17/18 11:03 08/17/18 11:03 Intake & Output 08/16/18 08/17/18 08/18/18 06:59 06:59 06:59 Intake Total 1722 1454 403 Output Total 811 917 300 Balance 911 537 103 Weight 127.9 kg 128.2 kg 128.2 kg General appearance: PRESENT: no acute distress Head exam: PRESENT: atraumatic Eye exam: PRESENT: PERRLA Mouth exam: PRESENT: moist, tongue midline Neck exam: ABSENT: carotid bruit, JVD, lymphadenopathy, thyromegaly Respiratory exam: PRESENT: clear to auscultation octavia. ABSENT: rales, rhonchi, wheezes Cardiovascular exam: PRESENT: RRR. ABSENT: diastolic murmur, rubs, systolic murmur GI/Abdominal exam: PRESENT: normal bowel sounds, soft. ABSENT: distended, guarding, mass, organolmegaly, rebound, tenderness Extremities exam: PRESENT: full ROM. ABSENT: calf tenderness, clubbing, pedal edema Neurological exam: PRESENT: alert, awake, oriented to person, oriented to place, oriented to time, oriented to situation, CN II-XII grossly intact. ABSENT: motor sensory deficit Psychiatric exam: PRESENT: appropriate affect, normal mood. ABSENT: homicidal ideation, suicidal ideation Results Laboratory Results: 08/17/18 06:05 08/17/18 06:05 08/17/18 08/17/18 06:05 06:05 WBC 9.2 RBC 3.00 L Hgb 9.4 L Hct 27.3 L MCV 91 MCH 31.5 MCHC 34.6 RDW 13.7 Plt Count 280 Seg Neutrophils % Not Reportable Lymphocytes % Not Reportable Monocytes % Not Reportable Eosinophils % Not Reportable Basophils % Not Reportable Absolute Neutrophils Not Reportable Absolute Lymphocytes Not Reportable Absolute Monocytes Not Reportable Absolute Eosinophils Not Reportable Absolute Basophils Not Reportable Sodium 140.6 Potassium 3.6 Chloride 112 H Carbon Dioxide 20 L Anion Gap 9 BUN 41 H Creatinine 2.91 H Est GFR ( Amer) 27 L Est GFR (Non-Af Amer) 22 L Glucose 121 H Calcium 8.4 Magnesium 1.9 Total Bilirubin 0.2 AST 40 ALT 27 Alkaline Phosphatase 64 Total Protein 4.7 L Albumin 2.3 L Impressions: Forearm X-Ray 08/11/18 20:38 IMPRESSION: No acute abnormality. Assessment & Plan - Diagnosis (1) Left arm cellulitis Is this a current diagnosis for this admission?: Yes Plan: Improving; Leukocytosis is improved; 20-> 11.9. Patient has been afebrile > 48 hours. Possibly related to PIP during previous admission. Patient presents with erythema, edema, and tenderness to left forearm. Blood cultures positive for gram-positive cocci. Received call from [facility] today; previously reported staph aureus is under review. [facility] does not believe that he has staph aureus bacteremia. Will update provider as cultures are clarified. Repeat blood cultures after IV Ancef and vancomycin are negative at 48 hours. Doppler reveals superficial phlebitis in the cephalic vein Continue IV Ancef and vancomycin. Elevate extremity as able. Analgesics as needed. 08/16/2018-patient is admitted with left arm cellulitis the blood cultures came back positive for staph aureus. Not MRSA. Recent is presently on Ancef and IV vancomycin. Plan is to discontinue Ancef and continue IV anti-vancomycin. Patient is afebrile and WBC count is 9.8. Down from 20.6 on admission. 08/17/2018-patient was admitted with left arm cellulitis afebrile blood cultures came back positive for staph aureus presently he is on IV vancomycin. Latest WBC count is 9200 which is in the normal range. (2) Hypertension Is this a current diagnosis for this admission?: No Plan: 08/16/2018-patient blood pressure today is 184/87. Presently he is on amlodipine 10 mg daily, hydralazine 50 mg 3 times daily, hydralazine 10 mg IV every 4 as needed, metoprolol 100 mg every 12 hours, spironolactone 25 mg p.o. daily. He is also receiving lisinopril 40 mg p.o. daily. Plan is to increase the hydral azine to 100 mg p.o. 3 times a day. 08/17/2018-patient blood pressure today is 154/60 pulse rate 62 patient is presently on amlodipine 10 mg daily, hydralazine 100 mg 3 times a day, hydralazine 10 mg IV every 4 as needed, metoprolol 100 mg every 12 hours, spironolactone 25 mg p.o. daily. He is also on lisinopril 40 mg p.o. daily. (3) CKD (chronic kidney disease) stage 3, GFR 30-59 ml/min Is this a current diagnosis for this admission?: No Plan: 08/16/2018-patient has a stage III kidney disease, on admission creatinine is 3.68 today it is 3.03 creatinine is coming down to baseline. 08/17/2018-today's creatinine is 2.9. Patient has stage III kidney disease. Creatinine coming back to baseline. (4) Diarrhea Is this a current diagnosis for this admission?: Yes Plan: 08/16/2018-patient is complaining of loose stools for the last 3 days. Stool for C. difficile was sent. Started on p.o. vancomycin 125 mg every 6 hours. 08/17/2018-diarrhea is resolved C. difficile was negative. P.o. vancomycin is discontinued. (5) Anemia in chronic kidney disease (CKD) Qualifiers: Chronic kidney disease stage: stage 3 (moderate) Qualified Code(s): N18.3 - Chronic kidney disease, stage 3 (moderate); D63.1 - Anemia in chronic kidney disease Is this a current diagnosis for this admission?: No Plan: 08/16/2018 patient has anemia of chronic disease secondary to chronic kidney disease. Hemoglobin is 10.5. Stable. 08/17/2018-patient has a history of anemia of chronic disease secondary to CKD. Hemoglobin is at 9.4 stable. - Time Time Spent with patient: 15-24 minutes Medications reviewed and adjusted accordingly: Yes
[2018-08-17] MEDS: VANCOMYCIN HCL 1,250 MG in DEXTROSE 5%-WATER 250 ML IV SCH (17:53)
[2018-08-17] MEDS: CLONAZEPAM 1 MG TABLET PO SCH (21:49)
[2018-08-17] MEDS: HYDRALAZINE HCL INJ/PF 20 MG/1 ML SDV IV PRN (21:51)
[2018-08-18] MEDS: HEPARIN SOD (PORCINE) 5,000 UNIT/ML 1 ML SYRINGE SUBCUT SCH (05:11)
[2018-08-18] MEDS: INSULIN LISPRO 100 UNIT/ML 3 ML VIAL SUBCUT SCH ×2 (07:34→11:17)
[2018-08-18] MEDS: HYDROCODONE/ACETAMINOPHEN 7.5-325 MG TABLET PO PRN (08:22)
[2018-08-18] MEDS: DOCUSATE SODIUM 100 MG CAPSULE PO SCH (09:54)
[2018-08-18] MEDS: METOPROLOL TARTRATE 100 MG TABLET PO SCH (09:55)
[2018-08-18] MEDS: SPIRONOLACTONE 25 MG TABLET PO SCH (09:55)
[2018-08-18] MEDS: HYDRALAZINE HCL 50 MG TABLET PO SCH (09:55)
[2018-08-18] MEDS: ASPIRIN 81 MG TABLET, CHEWABLE PO SCH (09:55)
[2018-08-18] MEDS: ATORVASTATIN CALCIUM 80 MG TABLET PO SCH (09:55)
[2018-08-18] MEDS: LISINOPRIL 10 MG TABLET PO SCH (09:55)
[2018-08-18] MEDS: AMLODIPINE BESYLATE 10 MG TABLET PO SCH (09:56)
[2018-08-18 11:09] VITALS: BP 161/89
--- NOTE | 2018-08-18 15:39 | PDOC DISCHARGE SUMMARY ---
General - Admit/Disc Date/PCP Admission Date/Primary Care Provider: 08/11/18 23:31 JOANN ARELLANO MD Discharge Date: 08/18/18 - Discharge Diagnosis (1) Left arm cellulitis Is this a current diagnosis for this admission?: Yes Summary: Improving; Leukocytosis is improved; 20-> 11.9. Patient has been afebrile > 48 hours. Possibly related to PIP during previous admission. Patient presents with erythema, edema, and tenderness to left forearm. Blood cultures positive for gram-positive cocci. Received call from [employer] today; previously reported staph aureus is under review. Micro lab does not believe that he has staph aureus bacteremia. Will update provider as cultures are clarified. Repeat blood cultures after IV Ancef and vancomycin are negative at 48 hours. Doppler reveals superficial phlebitis in the cephalic vein Continue IV Ancef and vancomycin. Elevate extremity as able. Analgesics as needed. 08/16/2018-patient is admitted with left arm cellulitis the blood cultures came back positive for staph aureus. Not MRSA. Recent is presently on Ancef and IV vancomycin. Plan is to discontinue Ancef and continue IV anti-vancomycin. Patient is afebrile and WBC count is 9.8. Down from 20.6 on admission. 08/17/2018-patient was admitted with left arm cellulitis afebrile blood cultures came back positive for staph aureus presently he is on IV vancomycin. Latest WBC count is 9200 which is in the normal range. 08/18/2018 was admitted with left arm cellulitis, afebrile now, blood cultures positive for staph aureus. He was treated with IV vancomycin bacteria sensitive to clindamycin patient can go home on p.o. clindamycin prescription was given for 300 mg twice a day for 1 week. (2) Hypertension Is this a current diagnosis for this admission?: No Summary: 08/16/2018-patient blood pressure today is 184/87. Presently he is on amlodipine 10 mg daily, hydralazine 50 mg 3 times daily, hydralazine 10 mg IV every 4 as needed, metoprolol 100 mg every 12 hours, spironolactone 25 mg p.o. daily. He is also receiving lisinopril 40 mg p.o. daily. Plan is to increase the hydralazine to 100 mg p.o. 3 times a day. 08/17/2018-patient blood pressure today is 154/60 pulse rate 62 patient is presently on amlodipine 10 mg daily, hydralazine 100 mg 3 times a day, hydralazine 10 mg IV every 4 as needed, metoprolol 100 mg every 12 hours, spironolactone 25 mg p.o. daily. He is also on lisinopril 40 mg p.o. daily. 08/18/2018-patient blood pressure is 161/89 amlodipine 10 mg daily, hydralazine 100 mg 3 times a day, metoprolol 100 mg every 12 hours, spironolactone 25 mg p.o. daily, lisinopril 40 mg p.o. daily. (3) CKD (chronic kidney disease) stage 3, GFR 30-59 ml/min Is this a current diagnosis for this admission?: No Summary: 08/16/2018-patient has a stage III kidney disease, on admission creatinine is 3.68 today it is 3.03 creatinine is coming down to baseline. 08/17/2018-today's creatinine is 2.9. Patient has stage III kidney disease. Creatinine coming back to baseline. 08/18/2018-patient has a stage III kidney disease. Patient creatinine is 2.91 close to baseline. Patient was advised to follow-up with his application coordinator Dr. Corey in 3-5 days. (4) Diarrhea Is this a current diagnosis for this admission?: Yes Summary: 08/16/2018-patient is complaining of loose stools for the last 3 days. Stool for C. difficile was sent. Started on p.o. vancomycin 125 mg every 6 hours. 08/17/2018-diarrhea is resolved C. difficile was negative. P.o. vancomycin is di scontinued. 08/18/2018-patient complains of diarrhea 2 days ago which was resolved now. C. difficile came back negative. (5) Anemia in chronic kidney disease (CKD) Is this a current diagnosis for this admission?: No Summary: 08/16/2018 patient has anemia of chronic disease secondary to chronic kidney disease. Hemoglobin is 10.5. Stable. 08/17/2018-patient has a history of anemia of chronic disease secondary to CKD. Hemoglobin is at 9.4 stable. 08/18/2018-patient has history of anemia of chronic disease secondary to chronic kidney disease. His hemoglobin is 9.4 stable. - Additional Information Resuscitation Status: Full Code Discharge Diet: As Tolerated Discharge Activity: Activity As Tolerated, Balance Activity w/Rest Prescriptions: Clindamycin HCl [Cleocin 300 mg Capsule] 300 mg PO BID #14 capsule Home Medications: Amlodipine Besylate [Norvasc 10 mg Tablet] 10 mg PO DAILY 08/12/18 Atorvastatin Calcium [Lipitor 80 mg Tablet] 80 mg PO QHS 08/12/18 Clonazepam [Klonopin 1 mg Tablet] 1 mg PO QHS 08/12/18 Colchicine [Colchicine 0.6 mg Tablet] 0.6 mg PO DAILY 08/12/18 Hydralazine HCl [Apresoline 50 mg Tablet] 50 mg PO Q8 08/12/18 Lisinopril [Prinivil 40 mg Tablet] 40 mg PO DAILY 08/12/18 Meloxicam [Mobic] 15 mg PO DAILY 08/12/18 Metoprolol Tartrate [Lopressor 100 mg Tablet] 100 mg PO Q12 08/12/18 Potassium Chloride [Klor-Con M20] 20 meq PO QPM 08/12/18 Amlodipine Besylate [Norvasc 10 mg Tablet] 10 mg PO DAILY tablet 08/18/18 Atorvastatin Calcium [Lipitor 80 mg Tablet] 80 mg PO DAILY tablet 08/18/18 Clindamycin HCl [Cleocin 300 mg Capsule] 300 mg PO BID #14 capsule 08/18/18 Metoprolol Tartrate [Lopressor 100 mg Tablet] 100 mg PO Q12 tablet 08/18/18 History of Present Illness History of Present Illness: CLARI TSAI JR is a 58 year old male 58 year old male with an extensive past medical history including 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 Patient was discharged from acute care hospitalization 48 hours ago for hypertensive urgency but returns with pain swelling and erythema to his right hand spreading proximally associated with fever. In the emergency department he is found to have leukocytosis and market erythema and pain to his left arm. He is started on empiric antibiotics and referred to the hospitalist for admission. In the emergency department he is found lethargic on oxygen without BiPAP and difficult to arouse. Unable to answer questions he is placed on BiPAP with follow-up ABG. Physical Exam Vital Signs: Temp Pulse Resp BP Pulse Ox 98.7 F 72 17 161/89 H 95 08/18/18 11:08 08/18/18 11:08 08/18/18 11:08 08/18/18 11:08 08/18/18 11:08 Intake & Output 08/17/18 08/18/18 08/19/18 06:59 06:59 06:59 Intake Total 1454 2500 Output Total 917 1475 Balance 537 1025 Weight 128.2 kg 135 kg General appearance: PRESENT: no acute distress Head exam: PRESENT: atraumatic Eye exam: PRESENT: PERRLA Mouth exam: PRESENT: moist, tongue midline Neck exam: ABSENT: carotid bruit, JVD, lymphadenopathy, thyromegaly Respiratory exam: PRESENT: clear to auscultation octavia. ABSENT: rales, rhonchi, wheezes Cardiovascular exam: PRESENT: RRR. ABSENT: diastolic murmur, rubs, systolic murmur GI/Abdominal exam: PRESENT: normal bowel sounds, soft. ABSENT: distended, guarding, mass, organolmegaly, rebound, tenderness Extremities exam: PRESENT: full ROM. ABSENT: calf tenderness, clubbing, pedal edema Neurological exam: PRESENT: alert, awake, oriented to person, oriented to place, oriented to time, oriented to situation, CN II-XII grossly intact. ABSENT: motor sensory deficit Psychiatric exam: PRESENT: appropriate affect, normal mood. ABSENT: homicidal ideation, suicidal ideation Results Laboratory Results: 08/17/18 06:05 08/17/18 06:05 08/13/18 12:20 Blood Blood Culture - Final NO GROWTH IN 5 DAYS 08/13/18 12:00 Blood Blood Culture - Final NO GROWTH IN 5 DAYS Impressions: Forearm X-Ray 08/11/18 20:38 IMPRESSION: No acute abnormality. Qualifiers - * PATIENT BEING DISCHARGED WITH ANY OF THE FOLLOWING DIAGNOSIS: No VTE patient discharged on overlapping Therapy?: No
== END 2018-08-18 13:00 | disposition home or self-care (01) | DRG 603 ==
LOC: ER 17:06 → EH 23:31 → 4S 08-12 01:17
PROVIDERS: ADMIT Internal Medicine; ATTEND Internal Medicine
PROC: 5A09457 Assistance with Respiratory Ventilation, 24-96 Consecutive Hours, Continuous Positive Airway Pressure (ICD-10-PCS; principal; 2018-08-11)
PROC: 3E0F73Z Introduction of Anti-inflammatory into Respiratory Tract, Via Natural or Artificial Opening (ICD-10-PCS; 2018-08-13)
DX: L03.114 Cellulitis of left upper limb (principal); N18.4 Chronic kidney disease, stage 4 (severe); R78.81 Bacteremia; E11.22 Type 2 diabetes mellitus with diabetic chronic kidney disease; I12.9 Hypertensive chronic kidney disease with stage 1 through stage 4 chronic kidney disease, or unspecified chronic kidney disease; G47.33 Obstructive sleep apnea (adult) (pediatric); B95.61 Methicillin susceptible Staphylococcus aureus infection as the cause of diseases classified elsewhere; R19.7 Diarrhea, unspecified; D63.1 Anemia in chronic kidney disease; F41.9 Anxiety disorder, unspecified; E11.21 Type 2 diabetes mellitus with diabetic nephropathy; N28.89 Other specified disorders of kidney and ureter; E78.5 Hyperlipidemia, unspecified; I87.2 Venous insufficiency (chronic) (peripheral); J44.9 Chronic obstructive pulmonary disease, unspecified; K21.9 Gastro-esophageal reflux disease without esophagitis; M10.042 Idiopathic gout, left hand; M10.041 Idiopathic gout, right hand; L30.9 Dermatitis, unspecified; F32.9 Major depressive disorder, single episode, unspecified; I16.0 Hypertensive urgency; Z88.8 Allergy status to other drugs, medicaments and biological substances; Z79.899 Other long term (current) drug therapy; Z90.5 Acquired absence of kidney; Z96.1 Presence of intraocular lens; Z98.42 Cataract extraction status, left eye; Z98.41 Cataract extraction status, right eye; Z82.49 Family history of ischemic heart disease and other diseases of the circulatory system; Z83.3 Family history of diabetes mellitus; Z80.3 Family history of malignant neoplasm of breast; Z84.1 Family history of disorders of kidney and ureter; Z82.5 Family history of asthma and other chronic lower respiratory diseases
CPT/HCPCS: 36415; 36600; 80048; 80053; 80202; 82803; 82962; 83605; 83735; 85025; 85027; 87040; 87077; 87186; 87493; 93971; 94660; 96365; 96375; 99284; J0360; J0690; J1644; J1815; J2405; J3010; J3370; J3490; J7030; J7060

== ENCOUNTER 2018-08-25 12:15 | Inpatient (IN) | payer BC ==
--- NOTE | 2018-08-25 13:52 | EKG REPORT ---
SEVERITY:- ABNORMAL ECG - SINUS RHYTHM ATRIAL PREMATURE COMPLEX FIRST DEGREE AV BLOCK LEFT ANTERIOR FASCICULAR BLOCK PROBABLE LEFT VENTRICULAR HYPERTROPHY : Confirmed by: Cj Busch MD 25-Aug-2018 13:51:30
[2018-08-25 13:59] LABS: ALANINE AMINOTRANSFERASE 14 U/L (21-72); ALBUMIN 3.1 g/dL (3.5-5.0); ALKALINE PHOSPHATASE 52 U/L (38-126); ANION GAP 8 (5-19); ASPARTATE AMINO TRANSFERASE 19 U/L (17-59); BILIRUBIN,DIRECT 0.4 mg/dL (0.0-0.4); BILIRUBIN,TOTAL 0.4 mg/dL (0.2-1.3); BLOOD UREA NITROGEN 75 mg/dL (7-20); CALCIUM 8.5 mg/dL (8.4-10.2); CARBON DIOXIDE 17 mmol/L (22-30); CHLORIDE 112 mmol/L (98-107); GLUCOSE 113 mg/dL (75-110); SODIUM 137.3 mmol/L (137-145); TOTAL PROTEIN 5.8 g/dL (6.3-8.2)
[2018-08-25 14:18] LABS: POTASSIUM 6.8 mmol/L (3.6-5.0)
[2018-08-25] MEDS ORDERED: SODIUM POLYSTYRENE SULFONATE 15 GM/60 ML PO ONE ×3 (14:46→20:30)
[2018-08-25] MEDS ORDERED: CALCIUM GLUCONATE 1000 MG/10 ML INJ IV ONE (14:46)
[2018-08-25] MEDS ORDERED: SODIUM BICARBONATE 8.4% INJ 50 MEQ/50 ML DISP.SYRIN IV ONE (14:46)
[2018-08-25] MEDS ORDERED: PATIROMER 8.4 GM SUSP PACKET PO ONE ×3 (15:16→20:30)
[2018-08-25] MEDS ORDERED: DEXTROSE 50%-WATER 25 GM/50 ML DISP.SYRIN IV ONE (15:17)
[2018-08-25] MEDS ORDERED: INSULIN REG, HUMAN 100 UNIT/ML 3 ML VIAL (PYX) SUBCUT ONE (15:17)
[2018-08-25] MEDS: NORMAL SALINE 1000 ML 1,000 ML IV PRN ×2 (15:23→20:55)
[2018-08-25] MEDS ORDERED: IPRATROPIUM/ALBUTEROL 0.5-2.5 MG/3 ML AMPUL NEB PRN (15:45)
--- NOTE | 2018-08-25 15:45 | PDOC H&P ---
History of Present Illness Admission Date/PCP: JOANN ARELLANO MD History of Present Illness: CLARI TSAI JR is a 58 year old male patient with past medical history of hypertension, diabetes mellitus, anemia of CKD, obesity and stage IV CKD [facility] with abnormal lab. Patient told by his primary construction technician Dr. Corey that his potassium is significantly high and advised him to check to ER. His blood work shows hyperkalemia with potassium of 6.8, creatinine 10.18 and GFR of 5. Patient does not have associated symptoms. His EKG shows mild peaked to the left. In ER patient has been given Veltassa, sodium bicarbonate, dextrose and regular insulin. Dr. Corey has been consulted on this patient. Past Medical History Cardiac Medical History: Reports: Hyperlipidema, Hypertension Denies: Coronary Artery Disease, Myocardial Infarction Pulmonary Medical History: Reports: Asthma - no episodes in "quite awhile", Chronic Obstructive Pulmonary Disease (COPD), Sleep Apnea Denies: Bronchitis, Pneumonia Neurological Medical History: Denies: Seizures Endocrine Medical History: Reports: Diabetes Mellitus Type 2 GI Medical History: Reports: Gastroesophageal Reflux Disease Musculoskeltal Medical History: Reports: Arthritis - hands, Gout Skin Medical History: Reports: Eczema Psychiatric Medical History: Reports: Depression Hematology: Denies: Anemia Past Surgical History Past Surgical History: Reports: Appendectomy, Tonsillectomy, Other - bilateral cataract extraction with insertion of lens Social History Smoking Status: Never Smoker Frequency of Alcohol Use: None Hx Recreational Drug Use: No Drugs: None Hx Prescription Drug Abuse: No - Advance Directive Resuscitation Status: Full Code Family History Family History: CAD, Other - Renal failure Parental Family History Reviewed: Yes Children Family History Reviewed: Yes Sibling(s) Family History Reviewed.: Yes Medication/Allergy Home Medications: Amlodipine Besylate [Norvasc 10 mg Tablet] 10 mg PO DAILY 08/12/18 Atorvastatin Calcium [Lipitor 80 mg Tablet] 80 mg PO QHS 08/12/18 Clonazepam [Klonopin 1 mg Tablet] 1 mg PO QHS 08/12/18 Colchicine [Colchicine 0.6 mg Tablet] 0.6 mg PO DAILY 08/12/18 Hydralazine HCl [Apresoline 50 mg Tablet] 50 mg PO Q8 08/12/18 Lisinopril [Prinivil 40 mg Tablet] 40 mg PO DAILY 08/12/18 Meloxicam [Mobic] 15 mg PO DAILY 08/12/18 Metoprolol Tartrate [Lopressor 100 mg Tablet] 100 mg PO Q12 08/12/18 Potassium Chloride [Klor-Con M20] 20 meq PO QPM 08/12/18 Amlodipine Besylate [Norvasc 10 mg Tablet] 10 mg PO DAILY tablet 08/18/18 Atorvastatin Calcium [Lipitor 80 mg Tablet] 80 mg PO DAILY tablet 08/18/18 Clindamycin HCl [Cleocin 300 mg Capsule] 300 mg PO BID #14 capsule 08/18/18 Metoprolol Tartrate [Lopressor 100 mg Tablet] 100 mg PO Q12 tablet 08/18/18 Allergies/Adverse Reactions: povidone-iodine [From Betadine] Allergy (Severe, Verified 08/25/18 12:15) Generalized rash Soap [From Betadine] Allergy (Severe, Verified 08/25/18 12:15) Generalized rash Review of Systems Constitutional: ABSENT: chills, fever(s), headache(s), weight gain, weight loss Eyes: ABSENT: visual disturbances Ears: ABSENT: hearing changes Cardiovascular: ABSENT: chest pain, dyspnea on exertion, edema, orthropnea, palpitations Respiratory: ABSENT: cough, hemoptysis Gastrointestinal: ABSENT: abdominal pain, constipation, diarrhea, hematemesis, hematochezia, nausea, vomiting Genitourinary: ABSENT: dysuria, hematuria Musculoskeletal: ABSENT: joint swelling Integumentary: ABSENT: rash, wounds Neurological: ABSENT: abnormal gait, abnormal speech, confusion, dizziness, focal weakness, syncope Psychiatric: ABSENT: anxiety, depression, homidical ideation, suicidal ideation Endocrine: ABSENT: cold intolerance, heat intolerance, polydipsia, polyuria Hematologic/Lymphatic: ABSENT: easy bleeding, easy bruising Physical Exam Vital Signs: Temp Pulse Resp BP Pulse Ox 98.3 F 56 L 16 202/88 H 100 08/25/18 12:21 08/25/18 12:21 08/25/18 15:01 08/25/18 15:01 08/25/18 15:01 Intake & Output 08/24/18 08/25/18 08/26/18 06:59 06:59 06:59 Weight 124.5 kg General appearance: PRESENT: no acute distress, obese Head exam: PRESENT: atraumatic, normocephalic Eye exam: PRESENT: conjunctiva pink, EOMI, PERRLA. ABSENT: scleral icterus Ear exam: PRESENT: normal external ear exam Mouth exam: PRESENT: moist, tongue midline Neck exam: ABSENT: carotid bruit, JVD, lymphadenopathy, thyromegaly Respiratory exam: PRESENT: clear to auscultation octavia. ABSENT: rales, rhonchi, wheezes Cardiovascular exam: PRESENT: RRR. ABSENT: diastolic murmur, rubs, systolic murmur Pulses: PRESENT: normal dorsalis pedis pul Vascular exam: PRESENT: normal capillary refill GI/Abdominal exam: PRESENT: normal bowel sounds, soft. ABSENT: distended, guarding, mass, organolmegaly, rebound, tenderness Rectal exam: PRESENT: deferred Extremities exam: PRESENT: full ROM. ABSENT: calf tenderness, clubbing, pedal edema Neurological exam: PRESENT: alert, awake, oriented to person, oriented to place, oriented to time, oriented to situation, CN II-XII grossly intact. ABSENT: motor sensory deficit Psychiatric exam: PRESENT: appropriate affect, normal mood. ABSENT: homicidal ideation, suicidal ideation Skin exam: PRESENT: dry, intact, warm. ABSENT: cyanosis, rash Results Laboratory Results: 08/25/18 13:23 08/25/18 13:23 Sodium 137.3 Potassium 6.8 H* Chloride 112 H Carbon Dioxide 17 L Anion Gap 8 BUN 75 H Creatinine 10.18 H Est GFR ( Amer) 6 L Est GFR (Non-Af Amer) 5 L Glucose 113 H Calcium 8.5 Magnesium 1.9 Total Bilirubin 0.4 AST 19 ALT 14 L Alkaline Phosphatase 52 Total Protein 5.8 L Albumin 3.1 L Assessment & Plan - Diagnosis (1) Hyperkalemia Is this a current diagnosis for this admission?: Yes Plan: Patient already get cocktails of Veltassa, sodium bicarb, dextrose and regular insulin. We will check his BMP after 4 hours. (2) Type 2 diabetes mellitus Is this a current diagnosis for this admission?: Yes Plan: We will continue his home medication and will put him on sliding scale. (3) Chronic kidney disease, stage IV (severe) Is this a current diagnosis for this admission?: Yes Plan: Dr. Corey is his primary construction technician and she will see him. Ms. Rodas will avoid nephrotoxic agents. (4) COPD (chronic obstructive pulmonary disease) Qualifiers: Emphysema type: unspecified Is this a current diagnosis for this admission?: Yes Plan: We will put him on as needed bronchodilators. (5) Hypertension Qualifiers: Hypertension type: essential hypertension Qualified Code(s): I10 - Essen tial (primary) hypertension Is this a current diagnosis for this admission?: Yes Plan: Continue home medication (6) Hyperlipidemia Qualifiers: Hyperlipidemia type: unspecified Qualified Code(s): E78.5 - Hyperlipidemia, unspecified Is this a current diagnosis for this admission?: Yes Plan: Continue home medication (7) Anemia in chronic kidney disease (CKD) Qualifiers: Chronic kidney disease stage: stage 3 (moderate) Qualified Code(s): N18.3 - Chronic kidney disease, stage 3 (moderate); D63.1 - Anemia in chronic kidney disease Is this a current diagnosis for this admission?: Yes Plan: Management per Dr. Corey. (8) Obesity (BMI 30-39.9) Is this a current diagnosis for this admission?: Yes Plan: Lifestyle modification advised - Inpatient Certification Medical Necessity: Need Close Monitoring Due to Risk of Patient Decompensation
[2018-08-25] MEDS: HYDRALAZINE HCL 50 MG TABLET PO SCH ×2 (17:23→21:26)
[2018-08-25] MEDS: AMLODIPINE BESYLATE 10 MG TABLET PO SCH (17:23)
[2018-08-25 17:34] LABS: ABSOLUTE BASOPHILS # (AUTO) 0.1 10^3/uL (0.0-0.2); ABSOLUTE EOSINOPHILS # (AUTO) 0.2 10^3/uL (0.0-0.6); ABSOLUTE LYMPHOCYTES (AUTO) 1.8 10^3/uL (0.5-4.7); ABSOLUTE MONOCYTES (AUTO) 0.3 10^3/uL (0.1-1.4); ABSOLUTE NEUT (AUTO) 5.1 10^3/uL (1.7-8.2); BASOPHILS % (AUTO) 1.2 % (0-2); EOSINOPHILS % (AUTO) 3.1 % (0-6); HEMATOCRIT 25.5 % (37.9-51.0); HEMOGLOBIN 8.4 g/dL (13.5-17.0); LYMPHOCYTES % (AUTO) 23.9 % (13-45); MEAN CORPUSCULAR HEMOGLOBIN 31.5 pg (27.0-33.4); MONOCYTES % (AUTO) 4.2 % (3-13); PLATELET COUNT 340 10^3/uL (150-450); RED BLOOD COUNT 2.67 10^6/uL (4.35-5.55); RED CELL DISTRIBUTION WIDTH 14.6 % (11.5-14.0); SEGMENTED NEUTROPHILS % (AUTO) 67.6 % (42-78); TOTAL CELLS COUNTED % (AUTO) 100 %; WHITE BLOOD COUNT 7.6 10^3/uL (4.0-10.5)
[2018-08-25 17:38] LABS: MEAN CORPUSCULAR VOLUME 95 fl (80-97)
--- NOTE | 2018-08-25 17:47 | PDOC CONSULTATION ---
Consultation Consult Date: 08/25/18 Attending physician:: ARIEL HINDS Consult reason:: I was asked to see the patient due to acute hyperkalemia and worsening of kidney function. 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 We get the results of blood work from lab hong that was drawn yesterday showing a potassium of 6.6, BUN of 69, creatinine of 8.87, hemoglobin of 8.5, vitamin D of 21.4, phosphorus of 7.2 and a urine protein to creatinine ratio of 14,184mg/g. So we called the patient and advised him to go to the emergency room. Repeat labs in the ER showed a potassium of 6.8 BUN of 75, creatinine of 10.18 and bicarbonate of 17. EKG just showed very minimal peaked T waves in some leads but not all with associated mild bradycardia. When I campbell ked to the patient he said he feels fine and denies any chest pains, shortness of breath, nor headache. His blood pressure is also elevated currently with blood pressure of 207/85. When I asked him if he was taking a previously prescribed potassium he was not quite sure. He said he could not remember his medications because he has a lot of bottles. The way the who is currently at bedside described to me is he grew up the bottles into 2 bags 1 in a.m. and 1 PM and he just take 1 tablet from each bottle when he takes the medications but not necessarily looking at what he is taking. He might have had some medication changes and he was previously discharged a week ago. He claims that he is drinking fluids and denies any significant leg swelling. Of note the patient was just recently discharge on August 18 due to left arm cellulitis. He also had an episode of C. difficile diarrhea which has resolved. When he got discharged on August 18 his BUN was 41 and creatinine of 2.91 which is pretty much at his baseline kidney function. His baseline creatinine usually ranges between 3-3.6 with a GFR of 17-22. Past Medical History Cardiac Medical History: Reports: Hyperlipidemia, Hypertension-primary, Other Pulmonary Medical History: Reports: Asthma, Chronic Obstructive Pulmonary Disease (COPD), Sleep Apnea Neurological Medical History: Denies: Seizures Endocrine Medical History: Reports: Diabetes Mellitus Type 2 Complications of Diabetes: Reports: Nephropathy Renal/ Medical History: Reports: Chronic Kidney Disease Stage IV, Proteinuria, Solitary kidney, Other - Left kidney donated to his sister; right renal mass GI Medical History: Reports: Gastroesophageal Reflux Disease Musculoskeltal Medical History: Reports: Arthritis - hands, Gout Skin Medical History: Reports: Eczema Psychiatric Medical History: Reports: Depression Hematology Medical History: Reports Anemia of Chronic Kidney Disease Past Surgical History Past Surgical History: Reports: Appendectomy, Nephrectomy - Left donated to his sister, Tonsillectomy, Other - bilateral cataract extraction with insertion of lens Social History Information Source: Patient Smoking Status: Never Smoker Frequency of Alcohol Use: None Hx Recreational Drug Use: No Drugs: None Hx Prescription Drug Abuse: No - Advance Directive Resuscitation Status: Full Code Family History Family History: CAD - Father, DM - Sister and maternal grandfather, End Stage Renal Disease - Sister, Hypertension - Mother, Malignancy - Breast cancer in his mother, Other - Asthma in his mother Parental Family History Reviewed: Yes Children Family History Reviewed: Yes Sibling(s) Family History Reviewed.: Yes Medication/Allergy Home Medications: Amlodipine Besylate [Norvasc 10 mg Tablet] 10 mg PO DAILY 08/12/18 Atorvastatin Calcium [Lipitor 80 mg Tablet] 80 mg PO QHS 08/12/18 Clonazepam [Klonopin 1 mg Tablet] 1 mg PO QHS 08/12/18 Colchicine [Colchicine 0.6 mg Tablet] 0.6 mg PO DAILY 08/12/18 Hydralazine HCl [Apresoline 50 mg Tablet] 50 mg PO Q8 08/12/18 Lisinopril [Prinivil 40 mg Tablet] 40 mg PO DAILY 08/12/18 Meloxicam [Mobic] 15 mg PO DAILY 08/12/18 Metoprolol Tartrate [Lopressor 100 mg Tablet] 100 mg PO Q12 08/12/18 Potassium Chloride [Klor-Con M20] 20 meq PO QPM 08/12/18 Amlodipine Besylate [Norvasc 10 mg Tablet] 10 mg PO DAILY tablet 08/18/18 Atorvastatin Calcium [Lipitor 80 mg Tablet] 80 mg PO DAILY tablet 08/18/18 Clindamycin HCl [Cleocin 300 mg Capsule] 300 mg PO BID #14 capsule 08/18/18 Metoprolol Tartrate [Lopressor 100 mg Tablet] 100 mg PO Q12 tablet 08/18/18 Allergies/Adverse Reactions: povidone-iodine [From Betadine] Allergy (Severe, Verified 08/25/18 12:15) Generalized rash Soap [From Betadine] Allergy (Severe, Verified 08/25/18 12:15) Generalized rash Review of Systems All systems: reviewed and no additional remarkable complaints except as stated Review of Systems: Constitutional: ABSENT: chills, fatigue, fever(s), headache(s), weight gain, weight loss Eyes: ABSENT: visual disturbances Ears: ABSENT: hearing changes Cardiovascular: ABSENT: chest pain, dyspnea on exertion, edema, orthropnea, pal pitations Respiratory: ABSENT: cough, dyspnea, hemoptysis Gastrointestinal: ABSENT: abdominal pain, constipation, hematemesis, hematochezia, nausea, vomiting; admits to loose stools Genitourinary: ABSENT: dysuria, hematuria Musculoskeletal: ABSENT: joint swelling Integumentary: ABSENT: rash, wounds Neurological: ABSENT: abnormal gait, abnormal speech, confusion, dizziness, focal weakness, numbness, syncope Psychiatric: ABSENT: anxiety, depression Endocrine: ABSENT: cold intolerance, heat intolerance, polydipsia, polyuria Hematologic/Lymphatic: ABSENT: easy bleeding, easy bruising, lymphadenopathy Physical Exam Vital Signs: Temp Pulse Resp BP Pulse Ox 98.3 F 56 L 16 202/88 H 100 08/25/18 12:21 08/25/18 12:21 08/25/18 15:01 08/25/18 15:01 08/25/18 15:01 Intake & Output 08/24/18 08/25/18 08/26/18 06:59 06:59 06:59 Intake Total 1000 Balance 1000 Weight 124.5 kg Exam: General appearance: No acute distress, cooperative, well-developed, well- nourished Head exam: PRESENT: atraumatic, normocephalic Eye exam: PRESENT: Conjunctiva slightly pale , EOMI, PERRLA. ABSENT: conjunctival injection, scleral icterus Mouth exam: PRESENT: moist, neck supple, tongue midline Neck exam: PRESENT: full ROM. ABSENT: carotid bruit, JVD, lymphadenopathy, thyromegaly Respiratory exam: PRESENT: clear to auscultation bilaterally. ABSENT: rales, rhonchi, stridor, wheezes Cardiovascular exam: PRESENT: RRR, +S1, +S2. ABSENT: systolic murmur Pulses: PRESENT: normal radial pulses, normal dorsalis pedis pulses GI/Abdominal exam: PRESENT: normal bowel sounds, soft. ABSENT: guarding, mass, tenderness Rectal exam: Deferred Extremities exam: PRESENT: full ROM. Trace bilateral lower extremity pitting edema ABSENT: calf tenderness Musculoskeletal: PRESENT: full ROM. ABSENT: deformity Neurological exam: PRESENT: alert, Awake, Oriented to person, Oriented to place, Oriented to time, reflexes normal, CN II-XII grossly intact. ABSENT: motor sensory deficit Psychiatric exam: PRESENT: appropriate affect, normal mood. ABSENT: homicidal ideation, suicidal ideation Skin exam: PRESENT: intact, dry, warm. ABSENT: rash Results Laboratory Results: 08/25/18 13:23 08/25/18 13:23 Sodium 137.3 Potassium 6.8 H* Chloride 112 H Carbon Dioxide 17 L Anion Gap 8 BUN 75 H Creatinine 10.18 H Est GFR ( Amer) 6 L Est GFR (Non-Af Amer) 5 L Glucose 113 H Calcium 8.5 Magnesium 1.9 Total Bilirubin 0.4 AST 19 ALT 14 L Alkaline Phosphatase 52 Total Protein 5.8 L Albumin 3.1 L Assessment & Plan - Diagnosis (1) Hyperkalemia Is this a current diagnosis for this admission?: Yes Plan: Patient was given an amp of calcium gluconate and Veltassa 8.4 g x1 dose. He is being given a bolus of 1 L of normal saline. I will also give him nightly next 15 g x1 dose which is the only available dose in the hospital, add Veltassa 16.8 g stat dose. Will repeat labs and if necessary we can add another liter of IV fluids and consider a dose of Lasix. We will hold the patient's lisinopril and metoprolol at this time. Continue to monitor the patient on telemetry. If we can control the patient's potassium by medical treatment then we will not need to do dialysis on the patient. Dialysis will be a last resort. Maintain low potassium diet. (2) Acute kidney injury superimposed on chronic kidney disease Is this a current diagnosis for this admission?: Yes Plan: I suspect the patient might be taking diuretics when he is not supposed to at home since he is not sure of what medications he was taking. IV fluid hydration would help. We will hold lisinopril at this time. I discussed with the patient and at bedside the importance of knowing what medications he really should be taking. said she will bring his medications from home tomorrow. Monitor kidney function serially. I am hoping that the patient's kidney function will improve with medical management and IV fluid hydration without resorting to renal replacement therapy. Avoid further nephrotoxic medications. (3) Severe hypertension Is this a current diagnosis for this admission?: Yes Plan: Resume amlodipine and hydralazine orally. We will hold lisinopril and metoprolol for now due to the hyperkalemia and some bradycardia. May give hydralazine 10 mg IV as needed for systolic blood pressure of 180 or greater. (4) CKD (chronic kidney disease) stage 4, GFR 15-29 ml/min Is this a current diagnosis for this admission?: Yes (5) Diabetic nephropathy Qualifiers: Diabetes mellitus type: type 2 Qualified Code(s): E11.21 - Type 2 diabetes mellitus with diabetic nephropathy Is this a current diagnosis for this admission?: Yes (6) Nephrotic range proteinuria Is this a current diagnosis for this admission?: Yes (7) Hyperphosphatemia Is this a current diagnosis for this admission?: Yes Plan: I will start phosphorus binder tomorrow with calcium acetate. (8) Vitamin D deficiency Is this a current diagnosis for this admission?: Yes Plan: Start vitamin D supplement. (9) Type 2 diabetes mellitus Is this a current diagnosis for this admission?: Yes (10) Anemia in chronic kidney disease (CKD) Qualifiers: Chronic kidney disease stage: stage 3 (moderate) Qualified Code(s): N18.3 - Chronic kidney disease, stage 3 (moderate); D63.1 - Anemia in chronic kidney disease Is this a current diagnosis for this admission?: Yes Plan: He also would need Procrit which we will give the patient once blood pressure is better. (11) Diarrhea Is this a current diagnosis for this admission?: Yes Plan: Recheck for C. difficile. (12) Restless legs syndrome (RLS) Is this a current diagnosis for this admission?: Yes Plan: Requip was ordered by Dr. moore for rash. - Notes Notes: Thank you very much for this consultation. - Time Time Spent: Greater than 70 Minutes
[2018-08-25] MEDS: HEPARIN SOD (PORCINE) 5,000 UNIT/ML 1 ML SYRINGE SUBCUT SCH ×2 (18:41→21:26)
[2018-08-25 18:46] LABS: ANION GAP 11 (5-19); BLOOD UREA NITROGEN 75 mg/dL (7-20); CALCIUM 8.3 mg/dL (8.4-10.2); CARBON DIOXIDE 13 mmol/L (22-30); CHLORIDE 114 mmol/L (98-107); GLUCOSE 101 mg/dL (75-110); SODIUM 137.9 mmol/L (137-145)
[2018-08-25 18:54] LABS: POTASSIUM 6.2 mmol/L (3.6-5.0)
[2018-08-25] MEDS ORDERED: ROPINIROLE HCL 1 MG TABLET PO ONE ×2 (19:30→20:30)
--- NOTE | 2018-08-25 20:27 | ER Document Report ---
Entered by MARTIN SAN SCRIBE 08/25/18 1544 Acting as scribe for:PATRIA WALLACE DO ED General - General Chief Complaint: Abnormal Lab Results Stated Complaint: ABNORMAL LABS Time Seen by Provider: 08/25/18 14:16 Mode of Arrival: Ambulatory Information source: Patient Notes: Patient is a 58-year-old male with a history of stage IV chronic kidney disease secondary to diabetic neuropathy, type 2 diabetes, hypertension was sent to the emergency department from public relations coordinator office due to a low potassium. Patient was recently admitted to the hospital for hypertensive emergency on 08/04/2018 and discharged on 08/10/2018. Patient was then admitted to the hospital again on 08/11/2018 for right arm cellulitis and bactermia and discharged on 08/18/2018. Patient was having his routine follow-up with Dr. Corey where blood work was done and patient was noted to have a potassium of 6.6 then instructed to come to the emergency department. Patient also complains of diarrhea, vomiting and decreased urine output. He describes his diarrhea has loose stool when he has a bowel movement approximately 3x a day. He also complains of decreased urine output further stating he is urinating less frequently and there is a little less output. He denies any pain or fevers. TRAVEL OUTSIDE OF THE [place] IN LAST 30 DAYS: No - Related Data Allergies/Adverse Reactions: povidone-iodine [From Betadine] Allergy (Severe, Verified 08/25/18 12:15) Generalized rash Soap [From Betadine] Allergy (Severe, Verified 08/25/18 12:15) Generalized rash Past Medical History - General Information source: Patient - Social History Smoking Status: Never Smoker Chew tobacco use (# tins/day): No Frequency of alcohol use: None Drug Abuse: None Family History: CAD, Other - Renal failure Patient has suicidal ideation: No Patient has homicidal ideation: No - Past Medical History Cardiac Medical History: Reports: Hx Hypercholesterolemia, Hx Hypertension Pulmonary Medical History: Reports: Hx Asthma - no episodes in "quite awhile", Hx COPD, Hx Sleep Apnea Endocrine Medical History: Reports: Hx Diabetes Mellitus Type 2 Renal/ Medical History: Reports: Hx Kidney Stones - kidney disease GI Medical History: Reports: Hx Gastroesophageal Reflux Disease Musculoskeletal Medical History: Reports Hx Arthritis - hands, Reports Hx Gout Skin Medical History: Reports Hx Eczema Psychiatric Medical History: Reports: Hx Depression Past Surgical History: Reports: Hx Appendectomy, Hx Kidney (Renal Surgery) - left kidney removed, Hx Tonsillectomy, Other - bilateral cataract extraction with insertion of lens - Immunizations Immunizations up to date: Yes Hx Diphtheria, Pertussis, Tetanus Vaccination: Yes Hx Pneumococcal Vaccination: 03/14/18 Review of Systems - Review of Systems Constitutional: No symptoms reported EENT: No symptoms reported Cardiovascular: No symptoms reported Respiratory: No symptoms reported Gastrointestinal: See HPI, Diarrhea, Nausea, Vomiting Genitourinary: See HPI Male Genitourinary: No symptoms reported Musculoskeletal: No symptoms reported Skin: No symptoms reported Hematologic/Lymphatic: No symptoms reported Neurological/Psychological: No symptoms reported -: Yes All other systems reviewed and negative Physical Exam - Vital signs Vitals: Temp Pulse Resp BP Pulse Ox 98.3 F 56 L 20 187/69 H 99 08/25/18 12:21 08/25/18 12:21 08/25/18 12:21 08/25/18 12:21 08/25/18 12:21 - Notes Notes: GENERAL: Alert, interacts well. No acute distress. HEAD: Normocephalic, atraumatic. EYES: Pupils equal, round, and reactive to light. Extraocular movements intact. ENT: Oral mucosa moist, tongue midline. NECK: Full range of motion. Supple. Trachea midline. LUNGS: Clear to auscultation bilaterally, no wheezes, rales, or rhonchi. No respiratory distress. HEART: Regular rate and rhythm. No murmurs, gallops, or rubs. ABDOMEN: Soft, non-tender, no guarding, rigidity, or rebound.. Non-distended. Bowel sounds present in all 4 quadrants. EXTREMITIES: Moves all 4 extremities spontaneously. NEUROLOGICAL: Alert and oriented x3. Normal speech. PSYCH: Normal affect, normal mood. SKIN: Warm, dry, normal turgor. No rashes or lesions noted. Course - Re-evaluation Re-evalutation: 08/25/18 15:52 Blood work shows acute renal failure with a 75 acute on chronic renal failure with BUN of 75 and creatinine 10.18, glucose normal at 113, potassium elevated at 6.8, dehydration suggested with a CO2 of 17. EKG just shows some peaked T waves but otherwise no EKG changes. Discussed with Dr. Corey who agrees if no other EKG changes the patient should stay here, be hydrated, have medication counseling performed as we both suspect he is probably not taking his medications as prescribed and has likely misunderstood what he is supposed to be taking. Also give insulin, glucose, calcium gluconate, bicarb and Kayexalate. The hospital is actually out of [facility] right now so we will change this to [facility]. Discussed this plan with Dr. Debi pritchard who agrees to accept the patient to his service as an admission. - Vital Signs Vital signs: Temp Pulse Resp BP Pulse Ox 98.3 F 56 L 16 202/88 H 100 08/25/18 12:21 08/25/18 12:21 08/25/18 15:01 08/25/18 15:01 08/25/18 15:01 - Laboratory Result Diagrams: 08/25/18 13:23 08/25/18 13:23 Laboratory results interpreted by me: 08/25/18 08/25/18 13:23 13:23 RBC 2.67 L Hgb 8.4 L Hct 25.5 L RDW 14.6 H Potassium 6.8 H* Chloride 112 H Carbon Dioxide 17 L BUN 75 H Creatinine 10.18 H Est GFR ( Amer) 6 L Est GFR (Non-Af Amer) 5 L Glucose 113 H ALT 14 L Total Protein 5.8 L Albumin 3.1 L - EKG Interpretation by Me Additional EKG results interpreted by me: 08/25/18 15:53 EKG shows sinus rhythm at a rate of 55, left anterior hemiblock, first-degree AV block, no ST segment elevations or depressions, there are T wave inversions needed in lead III per my interpretation. Discharge - Discharge Clinical Impression: Hyperkalemia, Diabetes mellitus type 2 in obese Acute on chronic renal failure Qualifiers: Acute renal failure type: unspecified Chronic kidney disease stage: stage 4 (severe) Qualified Code(s): N17.9 - Acute kidney failure, unspecified; N18.4 - Chronic kidney disease, stage 4 (severe) Disposition: ADMITTED INPATIENT I personally performed the services described in the documentation, reviewed and edited the documentation which was dictated to the scribe in my presence, and it accurately records my words and actions.
[2018-08-25] MEDS: HYDRALAZINE HCL INJ/PF 20 MG/1 ML SDV IV PRN (20:52)
[2018-08-25] MEDS ORDERED: ROPINIROLE HCL 1 MG TABLET PO SCH (22:00)
[2018-08-25] MEDS ORDERED: HYDRALAZINE HCL INJ/PF 20 MG/1 ML SDV IV ONE (23:15)
[2018-08-25] MEDS: CLONAZEPAM 1 MG TABLET PO PRN (23:16)
[2018-08-25 23:42] LABS: ANION GAP 10 (5-19); BLOOD UREA NITROGEN 75 mg/dL (7-20); CALCIUM 8.6 mg/dL (8.4-10.2); CARBON DIOXIDE 15 mmol/L (22-30); CHLORIDE 114 mmol/L (98-107); GLUCOSE 80 mg/dL (75-110); SODIUM 138.9 mmol/L (137-145)
[2018-08-25 23:51] LABS: POTASSIUM 6.1 mmol/L (3.6-5.0)
[2018-08-26] MEDS: HEPARIN SOD (PORCINE) 5,000 UNIT/ML 1 ML SYRINGE SUBCUT SCH ×4 (06:18→22:43)
[2018-08-26] MEDS: HYDRALAZINE HCL 50 MG TABLET PO SCH ×4 (06:18→22:42)
[2018-08-26 06:34] LABS: ANION GAP 9 (5-19); BLOOD UREA NITROGEN 74 mg/dL (7-20); CALCIUM 8.3 mg/dL (8.4-10.2); CARBON DIOXIDE 14 mmol/L (22-30); CHLORIDE 116 mmol/L (98-107); GLUCOSE 82 mg/dL (75-110)
[2018-08-26 06:50] LABS: POTASSIUM 6.2 mmol/L (3.6-5.0)
[2018-08-26] MEDS: AMLODIPINE BESYLATE 10 MG TABLET PO SCH (07:15)
[2018-08-26] MEDS ORDERED: DEXTROSE 5%-WATER 1000 ML 1,000 ML with SODIUM BICARBONATE 100 MEQ IV PRN ×2 (07:53)
[2018-08-26] MEDS ORDERED: PATIROMER 8.4 GM SUSP PACKET PO ONE (09:00)
[2018-08-26] MEDS ORDERED: ONDANSETRON HCL INJ/PF 4 MG/2 ML SDV ONE (09:15)
[2018-08-26 09:54] LABS: ARTERIAL BLOOD BASE EXCESS -11.1 mmol/L; ARTERIAL BLOOD H2CO3 0.99 mmol/L (1.05-1.35); ARTERIAL BLOOD HCO3 14.7 mmol/L (20-24); ARTERIAL BLOOD O2 SATURATION 96.5 % (94-98); ARTERIAL BLOOD PCO2 32.9 mmHg (35-45); ARTERIAL BLOOD PH 7.27 (7.35-7.45); ARTERIAL BLOOD PO2 95.7 mmHg (80-100); ARTERIAL BLOOD TOTAL CO2 15.7 mmol/L (23-27)
[2018-08-26 09:55] LABS: ARTERIAL BLOOD FIO2 ROOM AIR
--- NOTE | 2018-08-26 11:53 | RADIOLOGY REPORT (SQ) ---
EXAM DESCRIPTION: CHEST SINGLE VIEW COMPLETED DATE/TIME: 08/26/2018 10:52 am REASON FOR STUDY: shortness of breath COMPARISON: 08/04/2018 EXAM PARAMETERS: NUMBER OF VIEWS: One view. TECHNIQUE: Single frontal radiographic view of the chest acquired. RADIATION DOSE: NA LIMITATIONS: None. FINDINGS: LUNGS AND PLEURA: No opacities, masses or pneumothorax. No pleural effusion. MEDIASTINUM AND HILAR STRUCTURES: No masses. Contour normal. HEART AND VASCULAR STRUCTURES: Cardiomegaly. Slight prominence of the pulmonary vasculature, may re present vascular congestion. BONES: No acute findings. HARDWARE: None in the chest. OTHER: No other significant finding. IMPRESSION: 1. Cardiomegaly, new finding since the prior study dated 08/04/2018. Slight prominence of the pulmonary vasculature, may represent vascular congestion. 2. No acute pulmonary findings. TECHNICAL DOCUMENTATION: JOB ID: [id number] [employer]- All Rights Reserved Reading location - IP/workstation name: [email or web address]
[2018-08-26] MEDS: CALCIUM ACETATE 667 MG CAPSULE PO SCH ×3 (11:58→17:25)
[2018-08-26] MEDS: MINOXIDIL 2.5 MG TABLET PO SCH ×2 (11:59→22:46)
[2018-08-26] MEDS: CHOLECALCIFEROL (D3) 1,000 UNIT TABLET PO SCH ×2 (11:59→17:25)
[2018-08-26] MEDS ORDERED: SODIUM POLYSTYRENE SULFONATE 15 GM/60 ML PO SCH (12:00)
--- NOTE | 2018-08-26 12:11 | PDOC PROGRESS REPORT ---
Subjective Progress Note for:: 08/26/18 Subjective:: 58 year old male patient with past medical history of hypertension, diabetes mellitus, anemia of CKD, obesity and stage IV CKD [facility] with abnormal lab. Patient told by his primary tank washer Dr. Corey that his potassium is significantly high and advised him to check to ER. His blood work shows hyperkalemia with potassium of 6.8, creatinine 10.18 and GFR of 5. Patient does not have associated symptoms. His EKG shows mild peaked to the left. In ER patient has been given Veltassa, sodium bicarbonate, dextrose and regular insulin. Dr. Corey has been consulted on this patient. [id number]-yuan-old male with past medical history of hypertension diabetes mellitus chronic kidney disease admitted for acute on chronic renal failure and hyperkalemia. Potassium still 2 of 6.2 this morning. And creatinine is 9.52. Patient was nauseated started on Zofran. Is complaining of fatigue. He is also concerned about dryness of the skin. May be he is having the uremic symptoms. He is also mention to me he is not sleeping well lately. His blood pressure is also very high with systolic of 199. Patient was transferred to ICU because of concerns about his physical condition. Started him on Kayexalate for hyperkalemia unfortunately is on the back order. I started him on albuterol nebulizations every 4 hours to improve hyperkalemia patient is also receiving sodium IV bicarb and Veltassa 25.6 g daily. Condition is critical. Reason For Visit: HYPERKALEMIA Physical Exam Vital Signs: Temp Pulse Resp BP Pulse Ox 98.0 F 66 16 199/79 H 100 08/26/18 05:09 08/26/18 08:42 08/26/18 08:42 08/26/18 05:09 08/26/18 05:09 Intake & Output 08/25/18 08/26/18 08/27/18 06:59 06:59 06:59 Intake Total 1999 Balance 1999 Weight 125.7 kg General appearance: PRESENT: mild distress Head exam: PRESENT: atraumatic Eye exam: PRESENT: PERRLA Mouth exam: PRESENT: moist, tongue midline Neck exam: ABSENT: carotid bruit, JVD, lymphadenopathy, thyromegaly Respiratory exam: PRESENT: decreased breath sounds Cardiovascular exam: PRESENT: tachycardia GI/Abdominal exam: PRESENT: normal bowel sounds, soft. ABSENT: distended, guarding, mass, organolmegaly, rebound, tenderness Neurological exam: PRESENT: alert, awake, oriented to person, oriented to place, oriented to time, oriented to situation, CN II-XII grossly intact. ABSENT: motor sensory deficit Psychiatric exam: PRESENT: appropriate affect, normal mood. ABSENT: homicidal ideation, suicidal ideation Results Laboratory Results: 08/25/18 13:23 08/26/18 05:23 08/25/18 08/25/18 08/25/18 13:23 13:23 18:15 WBC 7.6 RBC 2.67 L Hgb 8.4 L Hct 25.5 L MCV 95 D MCH 31.5 MCHC 33.0 RDW 14.6 H Plt Count 340 Seg Neutrophils % 67.6 Lymphocytes % 23.9 Monocytes % 4.2 Eosinophils % 3.1 Basophils % 1.2 Absolute Neutrophils 5.1 Absolute Lymphocytes 1.8 Absolute Monocytes 0.3 Absolute Eosinophils 0.2 Absolute Basophils 0.1 Carbonic Acid HCO3/H2CO3 Ratio ABG pH ABG pCO2 ABG pO2 ABG HCO3 ABG O2 Saturation ABG Base Excess FiO2 Sodium 137.3 137.9 Potassium 6.8 H* 6.2 H* Chloride 112 H 114 H Carbon Dioxide 17 L 13 L Anion Gap 8 11 BUN 75 H 75 H Creatinine 10.18 H 9.74 H Est GFR ( Amer) 6 L 7 L Est GFR (Non-Af Amer) 5 L 6 L Glucose 113 H 101 Calcium 8.5 8.3 L Magnesium 1.9 Total Bilirubin 0.4 AST 19 ALT 14 L Alkaline Phosphatase 52 Total Protein 5.8 L Albumin 3.1 L 08/25/18 08/26/18 08/26/18 23:17 05:23 09:35 WBC RBC Hgb Hct MCV MCH MCHC RDW Plt Count Seg Neutrophils % Lymphocytes % Monocytes % Eosinophils % Basophils % Absolute Neutrophils Absolute Lymphocytes Absolute Monocytes Absolute Eosinophils Absolute Basophils Carbonic Acid 0.99 L HCO3/H2CO3 Ratio 14:1 ABG pH 7.27 L ABG pCO2 32.9 L ABG pO2 95.7 ABG HCO3 14.7 L ABG O2 Saturation 96.5 ABG Base Excess -11.1 FiO2 ROOM AIR Sodium 138.9 139.0 Potassium 6.1 H* 6.2 H* Chloride 114 H 116 H Carbon Dioxide 15 L 14 L Anion Gap 10 9 BUN 75 H 74 H Creatinine 9.84 H 9.52 H Est GFR ( Amer) 7 L 7 L Est GFR (Non-Af Amer) 5 L 6 L Glucose 80 82 Calcium 8.6 8.3 L Magnesium Total Bilirubin AST ALT Alkaline Phosphatase Total Protein Albumin Impressions: Chest X-Ray 08/26/18 00:00 IMPRESSION: 1. Cardiomegaly, new finding since the prior study dated 08/04/2018. Slight prominence of the pulmonary vasculature, may represent vascular congestion. 2. No acute pulmonary findings. Assessment & Plan - Diagnosis (1) Hyperkalemia Is this a current diagnosis for this admission?: Yes Plan: 08/26/2018-patient potassium is still 6.2 gently and IV sodium bicarb, all blood and albuterol nebulizations as needed, WelChol is a 25.6 g daily still potassium levels are not coming down. Order placed for Kayexalate unfortunately it is in the back order. Started on albuterol nebulizations every 4 to improve hyperkalemia. Managed to check the potassium level again afternoon. EKG shows sinus rhythm with left anterior fascicular block and first-degree heart block. No peaked T waves. (2) Acute renal failure superimposed on chronic kidney disease Qualifiers: Acute renal failure type: unspecified Chronic kidney disease stage: stage 4 (severe) Qualified Code(s): N17.9 - Acute kidney failure, unspecified; N18.4 - Chronic kidney disease, stage 4 (severe) Is this a current diagnosis for this admission?: Yes Plan: 08/26/2018-patient has a stage IV kidney disease with creatinine of around 3 on admission creatinine was 10.35. Patient has acute on chronic renal failure. He received 2 L of IV fluids in the ER did not improve creatinine much. My opinion patient may be in end-stage renal disease due to comorbidities like hypertension and diabetes mellitus. Urinary output is not recorded. (3) Hypertension Qualifiers: Hypertension type: essential hypertension Qualified Code(s): I10 - Essential (primary) hypertension Is this a current diagnosis for this admission?: No Plan: 08/26/2018-patient has history of uncontrolled hypertension. His blood pressure this morning is 199/79. Recently on hydralazine 100 mg p.o. every 8 hours and amlodipine 10 mg daily. He is also on hydralazine 10 mg IV every 6 hours as needed. Started minoxidil 2.5 mg p.o. twice daily. To check his blood pressures every shift. (4) Diabetes mellitus type 2 in obese Is this a current diagnosis for this admission?: No Plan: 08/26/2018 patient has history of type 2 diabetes mellitus. His blood sugar is 98. Start him on insulin sliding scale before meals and at bedtime hemoglobin A1c in the morning. - Time Time Spent with patient: 15-24 minutes Medications reviewed and adjusted accordingly: Yes Anticipated discharge: Home
[2018-08-26] MEDS ORDERED: LIDOCAINE 1% INJ-PF (10 MG/ML) 30 ML SDV ONE ×2 (12:27)
[2018-08-26] MEDS: ALBUTEROL SULFATE 0.042% NEB (1.25 MG/3 ML) AMPUL NEB SCH ×3 (12:59→21:14)
--- NOTE | 2018-08-26 13:16 | EKG REPORT ---
SEVERITY:- ABNORMAL ECG - SINUS RHYTHM FIRST DEGREE AV BLOCK LEFT ANTERIOR FASCICULAR BLOCK TALL PEAKED T WAVES BUT , NOT THE MOST TYPICAL OF HYPERKALEMIA. : Confirmed by: Cj Busch MD 26-Aug-2018 13:15:34
--- NOTE | 2018-08-26 13:28 | OPERATIVE REPORT E ---
Operative Report NAME: CLARI TSAI JR : 1960 AGE: 58Y DATE OF SURGERY: 08/26/2018 ROOM: 606 PREOPERATIVE DIAGNOSIS: Acute renal failure, needed hemodialysis and therefore needed access for hemodialysis. POSTOPERATIVE DIAGNOSIS: Acute renal failure, needed hemodialysis and therefore needed access for hemodialysis. PROCEDURE: Placement of right internal jugular vein Trellis-8 catheter for hemodialysis. SURGEON: YAHAIRA GOSS M.D. ANESTHESIA: Local. INDICATIONS: This is a 58-year-old female noted to have acute renal failure and needed hemodialysis. DESCRIPTION OF PROCEDURE: The patient was placed in slight Trendelenburg position and the right neck prepped and draped in the usual sterile fashion. The use of the ultrasound the right internal jugular vein was then identified and skin was then anesthetized with 1% lidocaine. A needle was then introduced towards the area of the internal jugular vein under ultrasound guidance. Aspirated dark blood nonpulsatile. There was initial placement of the needle, which went to the artery and had a pulsatile flow, and when pulled back, got back a dark blood and nonpulsatile flow. A guidewire was then passed through the needle towards the superior vena cava direction. Needle was removed and the guidewire insertion site dilated. A Trellis-8 catheter was then placed through the guidewire to a distance of 20 cm. All 3 ports of the Trellis aspirated blood easily and instilled saline easily. It was then anchored to the skin with 3-0 nylon. A Biopatch placed at the insertion site and a transparent dressing placed over the Biopatch and catheter. A chest x-ray will be obtained for placement. The patient tolerated the procedure well. DICTATING PHYSICIAN: YAHAIRA GOSS M.D. [id number] PHY#: [id number] ID: [id number] JOB#: [id number] ACCT: [id number] cc:YAHAIRA GOSS M.D. >
--- NOTE | 2018-08-26 13:45 | RADIOLOGY REPORT (SQ) ---
EXAM DESCRIPTION: CHEST SINGLE VIEW COMPLETED DATE/TIME: 08/26/2018 1:24 pm REASON FOR STUDY: CENTRAL LINE placement COMPARISON: 08/26/2018 EXAM PARAMETERS: NUMBER OF VIEWS: One view. TECHNIQUE: Single frontal radiographic view of the chest acquired. RADIATION DOSE: NA LIMITATIONS: None. FINDINGS: LUNGS AND PLEURA: No opacities, masses or pneumothorax. No pleural effusion. MEDIASTINUM AND HILAR STRUCTURES: No masses. Contour normal. HEART AND VASCULAR STRUCTURES: Cardiomegaly. BONES: No acute findings. HARDWARE: None in the chest. OTHER: Interval placement of right neck large bore multi lumen vascular catheter, tip projecting near the superior cavoatrial junction. IMPRESSION: Interval placement of right neck large bore multi lumen vascular catheter, tip projectin g near the superior cavoatrial junction. No pneumothorax or pleural effusion. TECHNICAL DOCUMENTATION: JOB ID: [id number] [employer]- All Rights Reserved Reading location - IP/workstation name: [email or web address]
[2018-08-26] MEDS ORDERED: TUBERCULIN,PURIF.PROT.DERIV. 5 TU/0.1 ML TEST 1 ML VIAL ID ONE ×2 (13:50→15:00)
[2018-08-26] MEDS ORDERED: NORMAL SALINE 1000 ML 1,000 ML IV PRN (13:50)
[2018-08-26] MEDS ORDERED: EPOETIN ALFA INJ 20000 UNIT/1 ML VIAL (RENAL) IV PRN (13:50)
[2018-08-26] MEDS ORDERED: EPOETIN ALFA 10,000 UNIT in SYRINGE, DISPOSABLE, 1 EACH IV PRN (14:09)
[2018-08-26 14:31] LABS: AMORPHOUS SEDIMENT,URINE TRACE /HPF; APPEARANCE,URINE TURBID; BILIRUBIN,URINE NEGATIVE (NEGATIVE); COLOR,URINE YELLOW; GLUCOSE, URINE 150 mg/dL (NEGATIVE); KETONES,URINE NEGATIVE (NEGATIVE); LEUKOCYTE ESTERASE,URINE NEGATIVE (NEGATIVE); NITRITE,URINE NEGATIVE (NEGATIVE); PROTEIN,URINE >=500 mg/dL (NEGATIVE); URINE SPECIFIC GRAVITY 1.034; UROBILINOGEN,URINE NEGATIVE mg/dL (<2.0)
[2018-08-26 14:53] LABS: ANION GAP 10 (5-19); BLOOD UREA NITROGEN 75 mg/dL (7-20); CARBON DIOXIDE 15 mmol/L (22-30); CHLORIDE 112 mmol/L (98-107); GLUCOSE 96 mg/dL (75-110); SODIUM 137.4 mmol/L (137-145)
[2018-08-26 14:54] LABS: CALCIUM 8.3 mg/dL (8.4-10.2)
[2018-08-26] MEDS: HYDRALAZINE HCL INJ/PF 20 MG/1 ML SDV IV PRN ×2 (15:44→18:26)
--- NOTE | 2018-08-26 16:56 | PDOC PROGRESS REPORT ---
Subjective Progress Note for:: 08/26/18 Subjective:: I saw the patient several times during dialysis today. This morning the patient was not feeling good. He said when he woke up he was nauseated and vomited couple of times in IMCU. He has some cough and was unable to eat this morning. His potassium remains to be elevated and he continues to be acidotic. He continues to have elevated blood pressure as well. At that point I decided that the patient would need dialysis treatment. Patient was then transferred here in the ICU. We consulted our surgeon tp place trialysis catheter which was done successfully. So I initially saw the patient at around 2 PM with initiation of hemodialysis. At that point he seems to be comfortable. Blood pressure was 202/91. Our plan initially was to dialyze the patient with 1 potassium bath for 1 and half hours and then 2 potassium bath for 2 hours. Subsequently we get potassium results from a chemistry that was drawn prior to dialysis which showed a potassium of 7 so I change his treatment plan to do 1 potassium bath for 2 hours and 2 potassium bath for an hour. I saw the patient again around 3:20 PM. Blood pressure remains to be elevated so we need to give IV hydralazine. Procrit will not be able to be given because of elevated blood pressure today. We are only doing limited ultrafiltration since the patient is still making urine and hopefully he can still have some renal recovery after this. Patient's brought in his medications. Patient did confirm that he was taking Klor-Con 20 mEq daily as well as meloxicam. He was also taken torsemide 20 mg p.o. daily which was not on his discharge medications during the last admission. He was also taking both the labetalol and metoprolol at the same time which she should not have been. I reiterated to the patient that upon discharge during this admission he should follow the discharge medication list. Reason For Visit: HYPERKALEMIA Physical Exam Vital Signs: Temp Pulse Resp BP Pulse Ox 98.2 F 68 12 196/90 H 100 08/26/18 16:00 08/26/18 16:00 08/26/18 16:08 08/26/18 16:08 08/26/18 16:08 Intake & Output 08/25/18 08/26/18 08/27/18 06:59 06:59 06:59 Intake Total 2000 Output Total 380 Balance 1999 -380 Weight 125.7 kg 127.5 kg Vitals during dialysis: Initially with blood pressures 202/91, heart rate of 67. During mid treatment blood pressure remains to be 208/97, heart rate of 65. Blood flow rate 250 more per minute and dialysate flow rate of 500 mL/min. Exam: General appearance: PRESENT: no acute distress, cooperative, well-developed, well-nourished Head exam: PRESENT: atraumatic, normocephalic Eye exam: PRESENT: conjunctiva pale, PERRLA. ABSENT: scleral icterus Neck exam: ABSENT: JVD Respiratory exam: PRESENT: Diminished breath sounds. ABSENT: crackles, rales, rhonchi, unlabored, wheezes Cardiovascular exam: PRESENT: Regular rate rhythm -+S1, +S2. ABSENT: diastolic murmur, systolic murmur GI/Abdominal exam: PRESENT: normal bowel sounds, soft. ABSENT: guarding, mass, tenderness Extremities exam: Trace bilateral lower extremity edema Neurological exam: PRESENT: alert, awake, oriented to person, place and time. Skin exam: PRESENT: dry, warm, Results Laboratory Results: 08/25/18 13:23 08/26/18 14:00 08/25/18 08/25/18 08/25/18 13:23 18:15 23:17 WBC 7.6 RBC 2.67 L Hgb 8.4 L Hct 25.5 L MCV 95 D MCH 31.5 MCHC 33.0 RDW 14.6 H Plt Count 340 Seg Neutrophils % 67.6 Lymphocytes % 23.9 Monocytes % 4.2 Eosinophils % 3.1 Basophils % 1.2 Absolute Neutrophils 5.1 Absolute Lymphocytes 1.8 Absolute Monocytes 0.3 Absolute Eosinophils 0.2 Absolute Basophils 0.1 Carbonic Acid HCO3/H2CO3 Ratio ABG pH ABG pCO2 ABG pO2 ABG HCO3 ABG O2 Saturation ABG Base Excess FiO2 Sodium 137.9 138.9 Potassium 6.2 H* 6.1 H* Chloride 114 H 114 H Carbon Dioxide 13 L 15 L Anion Gap 11 10 BUN 75 H 75 H Creatinine 9.74 H 9.84 H Est GFR ( Amer) 7 L 7 L Est GFR (Non-Af Amer) 6 L 5 L Glucose 101 80 Calcium 8.3 L 8.6 Urine Color Urine Appearance Urine pH Ur Specific [place] Urine Protein Urine Glucose (UA) Urine Ketones Urine Blood Urine Nitrite Ur Leukocyte Esterase Urine WBC (Auto) Urine RBC (Auto) 08/26/18 08/26/18 08/26/18 05:23 09:35 14:00 WBC RBC Hgb Hct MCV MCH MCHC RDW Plt Count Seg Neutrophils % Lymphocytes % Monocytes % Eosinophils % Basophils % Absolute Neutrophils Absolute Lymphocytes Absolute Monocytes Absolute Eosinophils Absolute Basophils Carbonic Acid 0.99 L HCO3/H2CO3 Ratio 14:1 ABG pH 7.27 L ABG pCO2 32.9 L ABG pO2 95.7 ABG HCO3 14.7 L ABG O2 Saturation 96.5 ABG Base Excess -11.1 FiO2 ROOM AIR Sodium 139.0 137.4 Potassium 6.2 H* 7.0 H* Chloride 116 H 112 H Carbon Dioxide 14 L 15 L Anion Gap 9 10 BUN 74 H 75 H Creatinine 9.52 H 10.27 H Est GFR ( Amer) 7 L 6 L Est GFR (Non-Af Amer) 6 L 5 L Glucose 82 96 Calcium 8.3 L 8.3 L Urine Color Urine Appearance Urine pH Ur Specific [place] Urine Protein Urine Glucose (UA) Urine Ketones Urine Blood Urine Nitrite Ur Leukocyte Esterase Urine WBC (Auto) Urine RBC (Auto) 08/26/18 08/26/18 14:00 14:00 WBC RBC Hgb Hct MCV MCH MCHC RDW Plt Count Seg Neutrophils % Lymphocytes % Monocytes % Eosinophils % Basophils % Absolute Neutrophils Absolute Lymphocytes Absolute Monocytes Absolute Eosinophils Absolute Basophils Carbonic Acid HCO3/H2CO3 Ratio ABG pH ABG pCO2 ABG pO2 ABG HCO3 ABG O2 Saturation ABG Base Excess FiO2 Sodium Potassium Cancelled Chloride Carbon Dioxide Anion Gap BUN Creatinine Est GFR ( Amer) Est GFR (Non-Af Amer) Glucose Calcium Urine Color YELLOW Urine Appearance TURBID Urine pH 5.0 Ur Specific [place] 1.034 Urine Protein >=500 H Urine Glucose (UA) 150 H Urine Ketones NEGATIVE Urine Blood SMALL H Urine Nitrite NEGATIVE Ur Leukocyte Esterase NEGATIVE Urine WBC (Auto) 54 Urine RBC (Auto) 28 Impressions: Chest X-Ray 08/26/18 12:44 IMPRESSION: Interval placement of right neck large bore multi lumen vascular catheter, tip projecting near the superior cavoatrial junction. No pneumothorax or pleural effusion. Assessment & Plan - Diagnosis (1) Hyperkalemia Is this a current diagnosis for this admission?: Yes Plan: Remains to be elevated despite all the anti-potassium remedies regimen to treated overnight. We did dialysis today for that. (2) Acute kidney injury superimposed on chronic kidney disease Is this a current diagnosis for this admission?: Yes Plan: Patient has not been taking his medications correctly which may play a role in his kidney function worsening. Hemodialysis procedure and risks including bleeding, infection, arrhythmia and sudden discussed with patient and he decided and agreed to proceed. We did dialysis today for 3 hours, using the patient's right IJ trialysis catheter, with 1 potassium bath for 2 hours followed by 2 potassium bath, blood flow rate of 250 mL per minute, dialysate flow rate of 500 mL per minute, ultrafiltration only 1 L, no heparin and unable to give Procrit because of elevated blood pressure. We will monitor the patient's kidney function during the weekend and reevaluate on Wednesday if he needs further dialysis treatment. (4) Severe hypertension Is this a current diagnosis for this admission?: Yes Plan: With correction of hyperkalemia and improvement of bradycardia we will resume metoprolol 100 mg p.o. every 12 hours. Increase hydralazine to 20 mg IV as needed for systolic blood pressure greater than 180. (5) CKD (chronic kidney disease) stage 4, GFR 15-29 ml/min Is this a current diagnosis for this admission?: Yes (6) Diabetic nephropathy Qualifiers: Diabetes mellitus type: type 2 Qualified Code(s): E11.21 - Type 2 diabetes mellitus with diabetic nephropathy Is this a current diagnosis for this admission?: Yes (7) Nephrotic range proteinuria Is this a current diagnosis for this admission?: Yes (8) Hyperphosphatemia Is this a current diagnosis for this admission?: Yes Plan: On calcium acetate. (9) Vitamin D deficiency Is this a current diagnosis for this admission?: Yes Plan: On vitamin D supplementation. (10) Type 2 diabetes mellitus Is this a current diagnosis for this admission?: Yes (11) Anemia in chronic kidney disease (CKD) Qualifiers: Chronic kidney disease stage: stage 3 (moderate) Qualified Code(s): N18.3 - Chronic kidney disease, stage 3 (moderate); D63.1 - Anemia in chronic kidney disease Is this a current diagnosis for this admission?: Yes Plan: Procrit was held due to elevated blood pressure. (12) Diarrhea Is this a current diagnosis for this admission?: Yes (13) Restless legs syndrome (RLS) Is this a current diagnosis for this admission?: Yes - Time Time with patient: Greater than 35 minutes
[2018-08-26] MEDS: CLONAZEPAM 1 MG TABLET PO PRN (22:41)
[2018-08-26] MEDS: METOPROLOL TARTRATE 100 MG TABLET PO SCH (22:42)
[2018-08-26] MEDS: ROPINIROLE HCL 1 MG TABLET PO SCH (22:42)
[2018-08-26 22:55] LABS: ANION GAP 10 (5-19); CALCIUM 8.2 mg/dL (8.4-10.2); CARBON DIOXIDE 21 mmol/L (22-30); CHLORIDE 105 mmol/L (98-107); GLUCOSE 92 mg/dL (75-110)
[2018-08-26 23:18] LABS: BLOOD UREA NITROGEN 48 mg/dL (7-20); POTASSIUM 4.5 mmol/L (3.6-5.0)
[2018-08-27] MEDS: ALBUTEROL SULFATE 0.042% NEB (1.25 MG/3 ML) AMPUL NEB SCH ×7 (00:14→23:49)
[2018-08-27] MEDS: OXYCODONE-ACETAMINOPHEN 5-325 MG TABLET PO PRN ×2 (01:03→21:31)
[2018-08-27] MEDS: HYDRALAZINE HCL INJ/PF 20 MG/1 ML SDV IV PRN ×2 (04:00→11:49)
[2018-08-27 04:33] LABS: ABSOLUTE BASOPHILS # (AUTO) 0.1 10^3/uL (0.0-0.2); ABSOLUTE EOSINOPHILS # (AUTO) 0.2 10^3/uL (0.0-0.6); ABSOLUTE LYMPHOCYTES (AUTO) 1.9 10^3/uL (0.5-4.7); ABSOLUTE MONOCYTES (AUTO) 0.5 10^3/uL (0.1-1.4); ABSOLUTE NEUT (AUTO) 3.9 10^3/uL (1.7-8.2); BASOPHILS % (AUTO) 2.2 % (0-2); EOSINOPHILS % (AUTO) 2.9 % (0-6); HEMATOCRIT 22.5 % (37.9-51.0); LYMPHOCYTES % (AUTO) 28.2 % (13-45); MEAN CORPUSCULAR HEMOGLOBIN 32.2 pg (27.0-33.4); MEAN CORPUSCULAR HGB CONC 35.1 g/dL (32.0-36.0); MEAN CORPUSCULAR VOLUME 92 fl (80-97); MONOCYTES % (AUTO) 6.9 % (3-13); PLATELET COUNT 264 10^3/uL (150-450); RED BLOOD COUNT 2.45 10^6/uL (4.35-5.55); RED CELL DISTRIBUTION WIDTH 13.9 % (11.5-14.0); SEGMENTED NEUTROPHILS % (AUTO) 59.8 % (42-78); TOTAL CELLS COUNTED % (AUTO) 100 %; WHITE BLOOD COUNT 6.6 10^3/uL (4.0-10.5)
[2018-08-27 04:41] LABS: HEMOGLOBIN 7.9 g/dL (13.5-17.0)
[2018-08-27 04:55] LABS: ALANINE AMINOTRANSFERASE 13 U/L (21-72); ALBUMIN 2.5 g/dL (3.5-5.0); ALKALINE PHOSPHATASE 48 U/L (38-126); ANION GAP 9 (5-19); ASPARTATE AMINO TRANSFERASE 17 U/L (17-59); BILIRUBIN,DIRECT 0.3 mg/dL (0.0-0.4); BILIRUBIN,TOTAL 0.5 mg/dL (0.2-1.3); BLOOD UREA NITROGEN 50 mg/dL (7-20); CALCIUM 8.2 mg/dL (8.4-10.2); CARBON DIOXIDE 23 mmol/L (22-30); CHLORIDE 105 mmol/L (98-107); GLUCOSE 88 mg/dL (75-110); POTASSIUM 4.9 mmol/L (3.6-5.0); SODIUM 137.4 mmol/L (137-145); TOTAL PROTEIN 4.8 g/dL (6.3-8.2)
[2018-08-27] MEDS: HYDRALAZINE HCL 50 MG TABLET PO SCH ×3 (06:12→21:30)
[2018-08-27] MEDS: HEPARIN SOD (PORCINE) 5,000 UNIT/ML 1 ML SYRINGE SUBCUT SCH ×3 (06:13→21:38)
[2018-08-27 07:42] LABS: HEPATITS B SURFACE ANTIGEN Negative (Negative)
[2018-08-27] MEDS: CALCIUM ACETATE 667 MG CAPSULE PO SCH ×3 (07:50→16:29)
[2018-08-27 08:39] LABS: HEPATITIS A AB IGM Negative (Negative); HEPATITIS B CORE AB IGM Negative (Negative); HEPATITS B SURFACE ANTIGEN Negative (Negative)
--- NOTE | 2018-08-27 08:58 | PROGRESS NOTE E ---
Progress Note NAME: CLARI TSAI JR : 1960 AGE: 58Y DATE: 08/26/2018 ROOM: 606 SUBJECTIVE: The patient is a pleasant 58-year-old male who has a past medical history of hypertension, poorly controlled, chronic kidney disease stage 4, diabetic nephropathy, nephrotic range proteinuria. The patient donated his kidney to his sister 25 years ago. He was admitted with severe hypertension, hyperkalemia, acute renal failure on CKD stage 4, and his potassium was around 7 and BUN was high, creatinine also was high and he initiated dialysis yesterday. He is feeling better today. His potassium is 4.9 and creatinine has come down to 7.8, BUN 50 from 74. OBJECTIVE: GENERAL: Patient lying in bed. The patient looks well, not in distress. VITAL SIGNS: Blood pressure is 141/58, temperature is 98, saturation is 95% on room air. HEENT: Head normocephalic, atraumatic. Pupils round, reactive to light and accommodation bilaterally. Extraocular movements intact. Ears: Tympanic membranes intact bilaterally. No discharge from the ears. No discharge from the nose. NECK: Supple. No increased JVD. No thyromegaly. No lymphadenopathy. CARDIOVASCULAR: Normal S1, S2. Regular rate and rhythm. No murmur. No gallop. RESPIRATORY: Lungs clear. ABDOMEN: Soft. MUSCULOSKELETAL: No edema. NEUROLOGICAL: Awake, alert. SKIN: No rash. LABORATORY: Sodium 137, potassium 4.9, chloride 105, BUN 50, creatinine 7.8. White blood count 6.6, hemoglobin 7.9, hematocrit 22. ASSESSMENT: 1. ACUTE RENAL FAILURE ON CKD STAGE 4. 2. HYPERKALEMIA. 3. HYPERTENSION, POORLY CONTROLLED. 4. VITAMIN D DEFICIENCY. 5. ANEMIA OF CHRONIC DISEASE. 6. SECONDARY HYPERPARATHYROIDISM. 7. TYPE 2 DIABETES. PLAN: The patient was dialyzed yesterday and Dr. Corey on the case and his potassium is down to 4.9 from 7[address] Will follow Dr. Corey's recommendations. His potassium supplement was discontinued. Continue his medication for hypertension, amlodipine, hydralazine, minoxidil. MEDICAL NECESSITY: The patient needs to stay for treatment of his acute renal failure. Probably, he needs also outpatient hemodialysis. TIME SPENT: 25 minutes. DICTATING PHYSICIAN: SUSIE ASKEW M.D. [id number] PHY#: [id number] ID: [id number] JOB#: [id number] ACCT: [id number] cc: >
[2018-08-27] MEDS: AMLODIPINE BESYLATE 10 MG TABLET PO SCH (09:21)
[2018-08-27] MEDS: CHOLECALCIFEROL (D3) 1,000 UNIT TABLET PO SCH (09:21)
[2018-08-27] MEDS: METOPROLOL TARTRATE 100 MG TABLET PO SCH ×2 (09:21→21:32)
[2018-08-27] MEDS: MINOXIDIL 2.5 MG TABLET PO SCH ×2 (09:22→21:33)
[2018-08-27 10:17] LABS: ALBUMIN 2.4 g/dL (3.5-5.0); ANION GAP 6 (5-19); BLOOD UREA NITROGEN 51 mg/dL (7-20); CALCIUM 8.1 mg/dL (8.4-10.2); CARBON DIOXIDE 26 mmol/L (22-30); CHLORIDE 105 mmol/L (98-107); GLUCOSE 115 mg/dL (75-110); POTASSIUM 4.8 mmol/L (3.6-5.0); SODIUM 137.2 mmol/L (137-145)
[2018-08-27] MEDS: ONDANSETRON HCL INJ/PF 4 MG/2 ML SDV IV PRN (16:28)
[2018-08-27] MEDS: DOXAZOSIN MESYLATE 2 MG TABLET PO SCH (16:28)
[2018-08-27 16:33] LABS: ALBUMIN 2.7 g/dL (3.5-5.0); ANION GAP 6 (5-19); BLOOD UREA NITROGEN 52 mg/dL (7-20); CALCIUM 8.3 mg/dL (8.4-10.2); CARBON DIOXIDE 25 mmol/L (22-30); CHLORIDE 105 mmol/L (98-107); GLUCOSE 100 mg/dL (75-110); PHOSPHORUS 8.4 mg/dL (2.5-4.5); POTASSIUM 5.4 mmol/L (3.6-5.0); SODIUM 136.4 mmol/L (137-145)
[2018-08-27] MEDS ORDERED: SODIUM POLYSTYRENE SULFONATE 15 GM/60 ML PO ONE ×2 (18:20→18:30)
[2018-08-27] MEDS: ROPINIROLE HCL 1 MG TABLET PO SCH (21:31)
[2018-08-27] MEDS: CLONAZEPAM 1 MG TABLET PO PRN (21:33)
[2018-08-28] MEDS: ALBUTEROL SULFATE 0.042% NEB (1.25 MG/3 ML) AMPUL NEB SCH ×2 (04:42→08:06)
[2018-08-28] MEDS: HYDRALAZINE HCL 50 MG TABLET PO SCH ×3 (05:05→21:04)
[2018-08-28] MEDS: HEPARIN SOD (PORCINE) 5,000 UNIT/ML 1 ML SYRINGE SUBCUT SCH ×3 (05:06→21:03)
[2018-08-28 05:38] LABS: HEMATOCRIT 23.8 % (37.9-51.0); MEAN CORPUSCULAR HEMOGLOBIN 31.1 pg (27.0-33.4); MEAN CORPUSCULAR HGB CONC 33.7 g/dL (32.0-36.0); MEAN CORPUSCULAR VOLUME 92 fl (80-97); PLATELET COUNT 266 10^3/uL (150-450); RED BLOOD COUNT 2.58 10^6/uL (4.35-5.55); RED CELL DISTRIBUTION WIDTH 14.2 % (11.5-14.0)
[2018-08-28 05:45] LABS: ALANINE AMINOTRANSFERASE 23 U/L (21-72); ALBUMIN 2.4 g/dL (3.5-5.0); ALKALINE PHOSPHATASE 49 U/L (38-126); ANION GAP 9 (5-19); ASPARTATE AMINO TRANSFERASE 17 U/L (17-59); BILIRUBIN,DIRECT 0.2 mg/dL (0.0-0.4); BILIRUBIN,TOTAL 0.4 mg/dL (0.2-1.3); BLOOD UREA NITROGEN 55 mg/dL (7-20); CALCIUM 8.2 mg/dL (8.4-10.2); CARBON DIOXIDE 24 mmol/L (22-30); CHLORIDE 104 mmol/L (98-107); GLUCOSE 96 mg/dL (75-110); PHOSPHORUS 8.9 mg/dL (2.5-4.5); POTASSIUM 4.6 mmol/L (3.6-5.0); SODIUM 137.2 mmol/L (137-145); TOTAL PROTEIN 4.8 g/dL (6.3-8.2)
[2018-08-28] MEDS: AMLODIPINE BESYLATE 10 MG TABLET PO SCH (09:36)
[2018-08-28] MEDS: CALCIUM ACETATE 667 MG CAPSULE PO SCH ×3 (09:36→16:43)
[2018-08-28] MEDS: METOPROLOL TARTRATE 100 MG TABLET PO SCH ×2 (09:36→21:06)
[2018-08-28] MEDS: DOXAZOSIN MESYLATE 2 MG TABLET PO SCH (09:36)
[2018-08-28] MEDS: CHOLECALCIFEROL (D3) 1,000 UNIT TABLET PO SCH (09:36)
[2018-08-28] MEDS: MINOXIDIL 2.5 MG TABLET PO SCH ×2 (09:36→21:06)
[2018-08-28] MEDS: OXYCODONE-ACETAMINOPHEN 5-325 MG TABLET PO PRN ×2 (10:56→21:05)
[2018-08-28] MEDS ORDERED: ALBUTEROL SULFATE 0.042% NEB (1.25 MG/3 ML) AMPUL NEB PRN (11:00)
--- NOTE | 2018-08-28 15:13 | PROGRESS NOTE E ---
Progress Note NAME: CLARI TSAI JR : 1960 AGE: 58Y DATE: 08/28/2018 ROOM: 606 SUBJECTIVE: The patient is a pleasant 58-year-old man who has a past medical history significant for hypertension, poorly controlled, and also chronic kidney disease, stage 4; diabetic nephropathy; neuropathic pain; proteinuria; solitary kidney. The patient donated a kidney to his sister 25 years ago. She had a kidney transplant. Admitted with COBY and CKD stage 4 and worsening kidney function, hyperkalemia. The patient had dialysis on Wednesday. His potassium is coming down to 4.7 today. Blood pressure is better controlled today. He was difficult to control, but today he is better controlled. He started a new medication yesterday. His minoxidil was increased to 2.5 twice a day and he was started on Cardura also. OBJECTIVE: GENERAL: Patient lying in bed, comfortable, not in distress. VITAL SIGNS: His blood pressure is 153/66, temperature is 97.8, respiratory rate 12, saturations are 96%. HEENT: Head normocephalic, atraumatic. Pupils round, reactive to light and accommodation bilaterally. Extraocular movements intact. Ears: Tympanic membranes intact bilaterally. No discharge from the ears. No discharge from the nose. NECK: Supple. No increased JVP. No thyromegaly, no lymphadenopathy. CARDIOVASCULAR: Normal S1, S2. Regular rate and rhythm. No murmur. No gallop. RESPIRATORY: Lungs clear. ABDOMEN: Soft. MUSCULOSKELETAL: No edema. NEUROLOGICAL: Awake, alert. SKIN: No rash. LABORATORY DATA: White blood count is 6.0, hemoglobin is 8.0, hematocrit 23. Sodium 137, potassium 4.6, BUN 55, creatinine 9.2. ASSESSMENT: 1. ACUTE KIDNEY FAILURE ON CKD STAGE 4, REQUIRING INITIATION OF HEMODIALYSIS. 2. HYPERKALEMIA. 3. HYPERTENSION, POORLY CONTROLLED. 4. VITAMIN D DEFICIENCY. 5. ANEMIA OF CHRONIC DISEASE. 6. SECONDARY HYPERPARATHYROIDISM. 7. NEPHROTIC RANGE PROTEINURIA. 8. TYPE 2 DIABETES. PLAN: 1. The patient had dialysis on Wednesday and he will be dialyzed on Wednesday. Dr. Corey is on the case. His potassium has come down to 4.6 today. He received Kayexalate 1 dose yesterday. 2. Put him on a renal diet. 3. His blood pressure is better controlled now. Cardura was added yesterday and his minoxidil was increased to 2.5 twice a day. He is Cardura, minoxidil, amlodipine, metoprolol. MEDICAL NECESSITY: The patient needs dialysis on Wednesday and he needs arrangement for outpatient hemodialysis. TIME SPENT: Twenty-five minutes. DICTATING PHYSICIAN: SUSIE ASKEW M.D. [id number] Y#: [id number] ID: [id number] JOB#: [id number] ACCT: [id number] cc: >
[2018-08-28] MEDS: ONDANSETRON HCL INJ/PF 4 MG/2 ML SDV IV PRN (16:44)
[2018-08-28] MEDS: CLONAZEPAM 1 MG TABLET PO PRN (21:04)
[2018-08-28] MEDS: ROPINIROLE HCL 1 MG TABLET PO SCH (21:04)
[2018-08-29] MEDS ORDERED: EPOETIN ALFA INJ 20000 UNIT/1 ML VIAL (RENAL) IV PRN ×2 (05:00)
[2018-08-29] MEDS ORDERED: NORMAL SALINE 1000 ML 1,000 ML IV PRN (05:00)
[2018-08-29] MEDS: HEPARIN SOD (PORCINE) 5,000 UNIT/ML 1 ML SYRINGE SUBCUT SCH ×3 (05:56→21:29)
[2018-08-29] MEDS: HYDRALAZINE HCL 50 MG TABLET PO SCH ×3 (05:56→21:30)
[2018-08-29 06:19] LABS: ABSOLUTE BASOPHILS # (AUTO) 0.2 10^3/uL (0.0-0.2); ABSOLUTE EOSINOPHILS # (AUTO) 0.2 10^3/uL (0.0-0.6); ABSOLUTE LYMPHOCYTES (AUTO) 2.2 10^3/uL (0.5-4.7); ABSOLUTE MONOCYTES (AUTO) 0.6 10^3/uL (0.1-1.4); ABSOLUTE NEUT (AUTO) 3.1 10^3/uL (1.7-8.2); BASOPHILS % (AUTO) 2.5 % (0-2); EOSINOPHILS % (AUTO) 3.5 % (0-6); HEMATOCRIT 23.6 % (37.9-51.0); HEMOGLOBIN 8.1 g/dL (13.5-17.0); LYMPHOCYTES % (AUTO) 34.8 % (13-45); MEAN CORPUSCULAR HEMOGLOBIN 31.7 pg (27.0-33.4); MEAN CORPUSCULAR HGB CONC 34.2 g/dL (32.0-36.0); MEAN CORPUSCULAR VOLUME 93 fl (80-97); MONOCYTES % (AUTO) 8.9 % (3-13); PLATELET COUNT 267 10^3/uL (150-450); RED BLOOD COUNT 2.55 10^6/uL (4.35-5.55); RED CELL DISTRIBUTION WIDTH 14.3 % (11.5-14.0); SEGMENTED NEUTROPHILS % (AUTO) 50.3 % (42-78); TOTAL CELLS COUNTED % (AUTO) 100 %; WHITE BLOOD COUNT 6.2 10^3/uL (4.0-10.5)
[2018-08-29 06:37] LABS: ALBUMIN 2.4 g/dL (3.5-5.0); ANION GAP 10 (5-19); BLOOD UREA NITROGEN 61 mg/dL (7-20); CALCIUM 8.2 mg/dL (8.4-10.2); CARBON DIOXIDE 22 mmol/L (22-30); CHLORIDE 104 mmol/L (98-107); GLUCOSE 97 mg/dL (75-110); PHOSPHORUS 9.9 mg/dL (2.5-4.5); POTASSIUM 4.8 mmol/L (3.6-5.0); SODIUM 136.4 mmol/L (137-145)
[2018-08-29 07:38] LABS: HEPATITIS B CORE AB TOT Negative (Negative); HEPATITIS B SURFACE AB QUANT <3.1 mIU/mL (Immunity>9)
[2018-08-29 07:39] LABS: HEPATITIS C VIRUS ANTIBODY <0.1 s/co ratio (0.0-0.9)
[2018-08-29] MEDS: CALCIUM ACETATE 667 MG CAPSULE PO SCH ×3 (09:54→17:48)
[2018-08-29] MEDS ORDERED: ACETAMINOPHEN 325 MG TABLET PO PRN (12:03)
[2018-08-29] MEDS: OXYCODONE-ACETAMINOPHEN 5-325 MG TABLET PO PRN ×2 (12:35→20:16)
--- NOTE | 2018-08-29 12:48 | PDOC PROGRESS REPORT ---
Subjective Progress Note for:: 08/29/18 Reason For Visit: Patient seen in the ICU today while undergoing dialysis. Chart review was done and discussions were done with the treating nurse. 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 Corey/nephrology. Further evaluation revealed the patient was having oliguric acute renal injury with a creatinine of 10+. According to Dr. Corey, the patient does at one time a diabetic and was on medications. However currently his blood sugars are fine and is not taking any diabetic medications. In spite of conservative measures to treat the potassium, it continued to be high and he was finally initiated on hemodialysis on Wednesday. From review of chart and disc ussions with Suresh Corey, it also looks like the patient was taking diuretics as well as potassium and ARIANNA inhibitors on discharge which was not in concordance with the discharge medications. Currently patient is in ICU. He is very quiet and very vague on his reply to questions. He has an rather inordinate delay in responding to questions and has a vacant look on his face. I did discuss this with Dr. Corey and apparently this is been a chronic issue for a long time. He is oriented x2. He denies any history of chest pain or shortness of breath. No stiffness fever chills abdominal pains. Labs and medications are reviewed with the patient and the treating dialysis. He remains anuric and therefore continuing him on dialysis. I also did discuss about the renal mass with Dr. Corey. Apparently this was a diagnosis made up approximately an year ago and was referred to the urologist. They then wanted to do a procedure most likely a renal biopsy but patient did not do it because of insurance reasons. He has had further evaluations with an MRI in May of last year followed by CT scan in June of this year and apparently no changes were seen between the 2 evaluations. However she me ntioned that in all probability given the size of the mass and the characteristics it is most likely renal cell carcinoma and patient and his has been told about the implications and consequences. Physical Exam Vital Signs: Temp Pulse Resp BP Pulse Ox 97.8 F 74 15 113/57 L 94 03/18/19 08:00 08/29/18 10:00 08/29/18 10:00 08/29/18 10:00 08/29/18 10:00 Intake & Output 08/28/18 08/29/18 08/30/18 06:59 06:59 06:59 Intake Total 300 Output Total 85 379 1410 Balance -85 -79 -1410 Weight 126.4 kg 126 kg General appearance: PRESENT: no acute distress Respiratory exam: PRESENT: clear to auscultation octavia, crackles - Scattered. Cardiovascular exam: PRESENT: +S1, +S2, systolic murmur GI/Abdominal exam: PRESENT: distended, normal bowel sounds, soft. ABSENT: organomegaly, tenderness Extremities exam: PRESENT: pedal edema Neurological exam: PRESENT: alert, awake, oriented to person, oriented to place Psychiatric exam: PRESENT: depressed, flat affect Skin exam: ABSENT: cyanosis, erythema, mottled, rash Results Laboratory Results: 08/29/18 06:06 08/29/18 06:06 08/29/18 08/29/18 06:06 06:06 WBC 6.2 RBC 2.55 L Hgb 8.1 L Hct 23.6 L MCV 93 MCH 31.7 MCHC 34.2 RDW 14.3 H Plt Count 267 Seg Neutrophils % 50.3 Lymphocytes % 34.8 Monocytes % 8.9 Eosinophils % 3.5 Basophils % 2.5 H Absolute Neutrophils 3.1 Absolute Lymphocytes 2.2 Absolute Monocytes 0.6 Absolute Eosinophils 0.2 Absolute Basophils 0.2 Sodium 136.4 L Potassium 4.8 Chloride 104 Carbon Dioxide 22 Anion Gap 10 BUN 61 H Creatinine 10.53 H Est GFR ( Amer) 6 L Est GFR (Non-Af Amer) 5 L Glucose 97 Calcium 8.2 L Phosphorus 9.9 H Albumin 2.4 L Impressions: Chest X-Ray 08/26/18 12:44 IMPRESSION: Interval placement of right neck large bore multi lumen vascular catheter, tip projecting near the superior cavoatrial junction. No pneumothorax or pleural effusion. Assessment & Plan - Diagnosis (1) Acute kidney injury superimposed on chronic kidney disease Is this a current diagnosis for this admission?: Yes Plan: Patient presents with acute anuric renal injury on top pf CKD 4 with severe potassium of 7+ that necessitated initiation of urgent hemodialysis on Wednesday. Patient still continues to be anuric and will continue on on dialysis. Patient seems to be undergoing dialysis without any issues. Vital signs are stable. We plan to remove minimal amount of fluids with the hope that his solitary right kidney will recover function . I did review his MRI from May and a CT scan of his kidney from June that shows a 2.5 cm dense mass in his right kidney suspicious of neoplasm. Potassium is relatively stable at the moment. Dialysis orders were reviewed with the treating dialysis nurse. Dialysis is being supervised to ensure a safe and small procedure. 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 Unfortunately he is now in anuric renal shutdown and has worsened with severe hyperkalemia and had to be initiated on hemodialysis. Monitor for recove ry of renal functions. On top of that he has a renal mass that needs further evaluation as an outpatient. (3) Hyperkalemia Is this a current diagnosis for this admission?: Yes Plan: Currently better as compared to his admission labs. However he is being dialyzed with a potassium bath of 2 okay. Monitor. Especially since he is anuric. (4) Metabolic acidosis Plan: Has improved with initiation of dialysis. Monitor. (5) Severe hypertension Is this a current diagnosis for this admission?: Yes Plan: Currently stable. Monitor. (6) Anemia in chronic kidney disease (CKD) Qualifiers: Chronic kidney disease stage: stage 3 (moderate) Qualified Code(s): N18.3 - Chronic kidney disease, stage 3 (moderate); D63.1 - Anemia in chronic kidney disease Is this a current diagnosis for this admission?: Yes Plan: Titrated EPO accordingly.We will also get iron studies. (7) Nephrotic range proteinuria Is this a current diagnosis for this admission?: Yes Plan: Status quo monitor. Currently unable to start on any raas blockers because of severe hyperkalemia. (8) Renal mass Plan: I did discuss with Dr. Corey . The diagnosis of this renal mass as mentioned earlier in my history was made approximately an year ago by Dr Corey and patient was referred to urology. Apparently for insurance reasons and others patient has not kept up with appointments with urology when they apparently wanted to do a procedure most likely renal biopsy on this patient. Therefore he he has been lost to follow up visits with them. He also has also had issues in keeping appointments with Dr. 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
--- NOTE | 2018-08-29 17:47 | PDOC PROGRESS REPORT ---
Subjective Progress Note for:: 08/29/18 Subjective:: This is a 58 yr old male with a PMH of HTN, CKD 4, diabetic nephropathy, solitary kidney, history of donating a kidney to his sister 25 yrs ago and renal mass who was admitted due to worsening renal function and severe hyperkalemia. Patient was admitted to the ICU and required initiation of dialysis. No acute event overnight. He is currently getting dialysis and appears comfortable. Denies chest pain or SOB. Reason For Visit: HYPERKALEMIA Physical Exam Vital Signs: Temp Pulse Resp BP Pulse Ox 97.6 F 94 16 121/61 97 08/29/18 16:00 08/29/18 16:00 08/29/18 16:00 08/29/18 16:00 08/29/18 16:00 Intake & Output 08/28/18 08/29/18 08/30/18 06:59 06:59 06:59 Intake Total 300 Output Total 85 379 1410 Balance -85 -79 -1410 Weight 278 lb 10.629 oz 277 lb 12.519 oz General appearance: PRESENT: no acute distress, well-developed, well-nourished Head exam: PRESENT: atraumatic, normocephalic Eye exam: PRESENT: conjunctiva pink, EOMI, PERRLA. ABSENT: scleral icterus Ear exam: PRESENT: normal external ear exam Mouth exam: PRESENT: moist, tongue midline Neck exam: ABSENT: carotid bruit, JVD, lymphadenopathy, thyromegaly Respiratory exam: PRESENT: clear to auscultation octavia. ABSENT: rales, rhonchi, wheezes Cardiovascular exam: PRESENT: RRR. ABSENT: diastolic murmur, rubs, systolic murmur Pulses: PRESENT: normal dorsalis pedis pul Vascular exam: PRESENT: normal capillary refill GI/Abdominal exam: PRESENT: normal bowel sounds, soft. ABSENT: distended, guarding, mass, organolmegaly, rebound, tenderness Rectal exam: PRESENT: deferred Extremities exam: PRESENT: full ROM. ABSENT: calf tenderness, clubbing, pedal edema Neurological exam: PRESENT: alert, awake, oriented to person, oriented to place, oriented to time, oriented to situation, CN II-XII grossly intact. ABSENT: motor sensory deficit Results Laboratory Results: 08/29/18 06:06 08/29/18 06:06 08/29/18 08/29/18 06:06 06:06 WBC 6.2 RBC 2.55 L Hgb 8.1 L Hct 23.6 L MCV 93 MCH 31.7 MCHC 34.2 RDW 14.3 H Plt Count 267 Seg Neutrophils % 50.3 Lymphocytes % 34.8 Monocytes % 8.9 Eosinophils % 3.5 Basophils % 2.5 H Absolute Neutrophils 3.1 Absolute Lymphocytes 2.2 Absolute Monocytes 0.6 Absolute Eosinophils 0.2 Absolute Basophils 0.2 Sodium 136.4 L Potassium 4.8 Chloride 104 Carbon Dioxide 22 Anion Gap 10 BUN 61 H Creatinine 10.53 H Est GFR ( Amer) 6 L Est GFR (Non-Af Amer) 5 L Glucose 97 Calcium 8.2 L Phosphorus 9.9 H Albumin 2.4 L Impressions: Chest X-Ray 08/26/18 12:44 IMPRESSION: Interval placement of right neck large bore multi lumen vascular catheter, tip projecting near the superior cavoatrial junction. No pneumothorax or pleural effusion. Assessment & Plan - Diagnosis (1) Acute renal failure superimposed on chronic kidney disease Qualifiers: Acute renal failure type: unspecified Chronic kidney disease stage: stage 4 (severe) Qualified Code(s): N17.9 - Acute kidney failure, unspecified; N18.4 - Chronic kidney disease, stage 4 (severe) Is this a current diagnosis for this admission?: Yes Plan: Currently getting hemodialysis. Nephrology following. (2) Hyperkalemia Is this a current diagnosis for this admission?: Yes Plan: Resolved. (3) Hypertension Qualifiers: Hypertension type: essential hypertension Qualified Code(s): I10 - Essential (primary) hypertension Is this a current diagnosis for this admission?: Yes Plan: Blood pressures at goal. On Cardura, metoprolol, amlodipine and hydralazine. (4) Renal mass Is this a current diagnosis for this admission?: Yes Plan: Patient will need close follow up with urology for recently diagnosed mass. - Time Time Spent with patient: 15-24 minutes
[2018-08-29] MEDS: DOXAZOSIN MESYLATE 2 MG TABLET PO SCH (21:27)
[2018-08-29] MEDS: METOPROLOL TARTRATE 100 MG TABLET PO SCH ×2 (21:28→21:30)
[2018-08-29] MEDS: MINOXIDIL 2.5 MG TABLET PO SCH ×2 (21:28→23:06)
[2018-08-29] MEDS: AMLODIPINE BESYLATE 10 MG TABLET PO SCH (21:29)
[2018-08-29] MEDS: CHOLECALCIFEROL (D3) 1,000 UNIT TABLET PO SCH (21:29)
[2018-08-29] MEDS: ROPINIROLE HCL 1 MG TABLET PO SCH (21:30)
[2018-08-30] MEDS: HEPARIN SOD (PORCINE) 5,000 UNIT/ML 1 ML SYRINGE SUBCUT SCH ×3 (05:51→21:08)
[2018-08-30] MEDS: HYDRALAZINE HCL 50 MG TABLET PO SCH ×3 (05:53→21:06)
[2018-08-30 06:55] LABS: ABSOLUTE RETICS # 0.064 10^6/uL (0.028-0.122); HEMATOCRIT 24.9 % (37.9-51.0); HEMOGLOBIN 8.5 g/dL (13.5-17.0); MEAN CORPUSCULAR HEMOGLOBIN 31.2 pg (27.0-33.4); MEAN CORPUSCULAR HGB CONC 34.2 g/dL (32.0-36.0); MEAN CORPUSCULAR VOLUME 91 fl (80-97); PLATELET COUNT 259 10^3/uL (150-450); RED BLOOD COUNT 2.72 10^6/uL (4.35-5.55); RED CELL DISTRIBUTION WIDTH 14.3 % (11.5-14.0); RETICULOCYTE COUNT (AUTO) 2.34 % (0.66-2.85); WHITE BLOOD COUNT 6.8 10^3/uL (4.0-10.5)
[2018-08-30 07:13] LABS: ANION GAP 7 (5-19); BLOOD UREA NITROGEN 44 mg/dL (7-20); CALCIUM 8.2 mg/dL (8.4-10.2); CARBON DIOXIDE 27 mmol/L (22-30); CHLORIDE 102 mmol/L (98-107); GLUCOSE 91 mg/dL (75-110); IRON(TIBC) 42.3 ug/dL (49-181); POTASSIUM 4.9 mmol/L (3.6-5.0); SODIUM 135.5 mmol/L (137-145)
[2018-08-30] MEDS: ONDANSETRON HCL INJ/PF 4 MG/2 ML SDV IV PRN ×2 (08:45→16:31)
[2018-08-30] MEDS: AMLODIPINE BESYLATE 10 MG TABLET PO SCH (09:15)
[2018-08-30] MEDS: MINOXIDIL 2.5 MG TABLET PO SCH ×2 (09:15→21:05)
[2018-08-30] MEDS: METOPROLOL TARTRATE 100 MG TABLET PO SCH ×2 (09:15→21:06)
[2018-08-30] MEDS: CALCIUM ACETATE 667 MG CAPSULE PO SCH ×4 (09:15→19:01)
[2018-08-30] MEDS: CHOLECALCIFEROL (D3) 1,000 UNIT TABLET PO SCH (09:15)
[2018-08-30] MEDS: DOXAZOSIN MESYLATE 2 MG TABLET PO SCH (09:17)
[2018-08-30] MEDS: OXYCODONE-ACETAMINOPHEN 5-325 MG TABLET PO PRN ×2 (09:21→18:59)
--- NOTE | 2018-08-30 15:01 | PDOC PROGRESS REPORT ---
Subjective Progress Note for:: 08/30/18 Reason For Visit: Patient seen today in the hospital. Has a sister is by the bedside and she is the one who got a transplant from the patient 25 years ago. Patient denies any specific complaints of chest pain shortness of breath. Patient sister was unaware of the renal mass in the evaluations and noncompliance done by her brother. Patient is not making much urine. No complaints of any abdominal pains. Labs and medications reviewed. Physical Exam Vital Signs: Temp Pulse Resp BP Pulse Ox 98.4 F 73 15 145/67 H 93 08/30/18 11:55 08/30/18 14:00 08/30/18 11:55 08/30/18 11:55 08/30/18 11:55 Intake & Output 08/29/18 08/30/18 08/31/18 06:59 06:59 06:59 Intake Total 300 Output Total 379 1460 Balance -79 -1460 Weight 126 kg 125.8 kg General appearance: PRESENT: no acute distress Respiratory exam: PRESENT: clear to auscultation octavia. ABSENT: crackles Cardiovascular exam: PRESENT: +S1, +S2, systolic murmur GI/Abdominal exam: PRESENT: distended, normal bowel sounds, soft. ABSENT: organomegaly, tenderness Extremities exam: PRESENT: pedal edema Neurological exam: PRESENT: alert, awake, oriented to person, oriented to place Psychiatric exam: PRESENT: appropriate affect Skin exam: ABSENT: cyanosis, erythema, mottled, rash Results Laboratory Results: 08/30/18 05:45 08/30/18 05:45 08/30/18 08/30/18 08/30/18 05:45 05:45 05:45 WBC 6.8 RBC 2.72 L Hgb 8.5 L Hct 24.9 L MCV 91 MCH 31.2 MCHC 34.2 RDW 14.3 H Plt Count 259 Retic Count (auto) 2.34 Absolute Retic 0.064 Sodium 135.5 L Potassium 4.9 Chloride 102 Carbon Dioxide 27 Anion Gap 7 BUN 44 H Creatinine 9.25 H Est GFR ( Amer) 7 L Est GFR (Non-Af Amer) 6 L Glucose 91 Calcium 8.2 L Magnesium 1.7 Iron 42.3 L TIBC 193 L % Saturation 22 Ferritin 120.00 Vitamin B12 > 1000.0 H Folate 7.90 TSH PTH Intact 161.2 H 08/30/18 05:45 WBC RBC Hgb Hct MCV MCH MCHC RDW Plt Count Retic Count (auto) Absolute Retic Sodium Potassium Chloride Carbon Dioxide Anion Gap BUN Creatinine Est GFR ( Amer) Est GFR (Non-Af Amer) Glucose Calcium Magnesium Iron TIBC % Saturation Ferritin Vitamin B12 Folate TSH 2.61 PTH Intact Impressions: Chest X-Ray 08/26/18 12:44 IMPRESSION: Interval placement of right neck large bore multi lumen vascular catheter, tip projecting near the superior cavoatrial junction. No pneumothorax or pleural effusion. Assessment & Plan - Diagnosis (1) Acute kidney injury superimposed on chronic kidney disease Is this a current diagnosis for this admission?: Yes Plan: Patient presents with acute anuric renal injury on top pf CKD 4.Unfortunately still continues to be anuric which has a poor prognosis. Plan for dialysis again in the morning. 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 Unfortunately he is now in anuric renal shutdown and has worsened with severe hyperkalemia and had to be initiated on hemodialysis. Monitor for recovery of renal functions. On top of that he has a renal mass that needs further evaluation as an outpatient. (3) Hyperkalemia Is this a current diagnosis for this admission?: Yes Plan: Now stable. Monitor. (4) Metabolic acidosis Plan: Has improved with initiation of dialysis. Monitor. (5) Severe hypertension Is this a current diagnosis for this admission?: Yes (6) Anemia in chronic kidney disease (CKD) Qualifiers: Chronic kidney disease stage: stage 3 (moderate) Qualified Code(s): N18.3 - Chronic kidney disease, stage 3 (moderate); D63.1 - Anemia in chronic kidney disease Is this a current diagnosis for this admission?: Yes Plan: Titrated EPO accordingly.We will also get iron studies. (7) Nephrotic range proteinuria Is this a current diagnosis for this admission?: Yes (8) Renal mass Is this a current diagnosis for this admission?: Yes Plan: I did discuss with Dr. Corey . The diagnosis of this renal mass as mentioned earlier in my history was made approximately an year ago by Dr Corey and patient was referred to urology. Apparently for insurance reasons and others patient has not kept up with appointments with urology when they apparently wanted to do a procedure most likely renal biopsy on this patient. Therefore he he has been lost to follow up visits with them. He also has also had issues in keeping appointments with Dr. Corey for various reasons as well as compliance with medications.Patient unable to give me much information because of his mental obtundation, which apparently is chronic as per Dr Coery, at the moment. I had a lengthy discussion again with the patient and his sister at the bedside. The sister is apparently unaware of her brothers status including a renal mass until now. She wants him to be evaluated by [facility] urology and insist that she will make sure the patient goes for all appointments. Plan to make [facility] urology referral either now or once he is discharged from the hospital.Total time spent with this patient and his sister was 40 minutes of which half the time was spent in counseling and answering multiple questions and reviewing medications.
--- NOTE | 2018-08-30 17:09 | PDOC PROGRESS REPORT ---
Subjective Progress Note for:: 08/30/18 Subjective:: The patient is resting in bed. He gives somewhat vague answers to questions such as "how are you feeling ". He is in no acute distress. Reason For Visit: HYPERKALEMIA Acute on chronic kidney disease requiring dialysis Renal mass Physical Exam Vital Signs: Temp Pulse Resp BP Pulse Ox 98.4 F 73 15 145/67 H 93 08/30/18 11:55 08/30/18 14:00 08/30/18 11:55 08/30/18 11:55 08/30/18 11:55 Intake & Output 08/29/18 08/30/18 08/31/18 06:59 06:59 06:59 Intake Total 300 Output Total 379 1460 Balance -79 -1460 Weight 126 kg 125.8 kg General appearance: PRESENT: no acute distress, cooperative, obese - BMI 36.6 Head exam: PRESENT: atraumatic, normocephalic Eye exam: PRESENT: conjunctiva pale. ABSENT: conjunctival injection, scleral icterus Ear exam: PRESENT: normal external ear exam Mouth exam: PRESENT: dry mucosa, neck supple Respiratory exam: PRESENT: clear to auscultation octavia, symmetrical, unlabored. ABSENT: accessory muscle use, rales, rhonchi, wheezes Cardiovascular exam: PRESENT: RRR, +S1, +S2 GI/Abdominal exam: PRESENT: normal bowel sounds, soft. ABSENT: ascites, distended, guarding, tenderness Rectal exam: PRESENT: deferred Extremities exam: ABSENT: pedal edema Musculoskeletal exam: PRESENT: normal inspection Neurological exam: PRESENT: alert, awake, oriented to person, oriented to place, oriented to situation Psychiatric exam: PRESENT: flat affect. ABSENT: agitated, anxious Focused psych exam: ABSENT: delusional, restlessness Skin exam: PRESENT: dry, normal color, warm. ABSENT: rash Results Laboratory Results: 08/30/18 05:45 08/30/18 05:45 08/30/18 08/30/18 08/30/18 05:45 05:45 05:45 WBC 6.8 RBC 2.72 L Hgb 8.5 L Hct 24.9 L MCV 91 MCH 31.2 MCHC 34.2 RDW 14.3 H Plt Count 259 Retic Count (auto) 2.34 Absolute Retic 0.064 Sodium 135.5 L Potassium 4.9 Chloride 102 Carbon Dioxide 27 Anion Gap 7 BUN 44 H Creatinine 9.25 H Est GFR ( Amer) 7 L Est GFR (Non-Af Amer) 6 L Glucose 91 Calcium 8.2 L Magnesium 1.7 Iron 42.3 L TIBC 193 L % Saturation 22 Ferritin 120.00 Vitamin B12 > 1000.0 H Folate 7.90 TSH PTH Intact 161.2 H 08/30/18 05:45 WBC RBC Hgb Hct MCV MCH MCHC RDW Plt Count Retic Count (auto) Absolute Retic Sodium Potassium Chloride Carbon Dioxide Anion Gap BUN Creatinine Est GFR ( Amer) Est GFR (Non-Af Amer) Glucose Calcium Magnesium Iron TIBC % Saturation Ferritin Vitamin B12 Folate TSH 2.61 PTH Intact Impressions: Chest X-Ray 08/26/18 12:44 IMPRESSION: Interval placement of right neck large bore multi lumen vascular catheter, tip projecting near the superior cavoatrial junction. No pneumothorax or pleural effusion. Assessment and Plan - Diagnosis (1) Acute renal failure superimposed on chronic kidney disease Qualifiers: Acute renal failure type: unspecified Chronic kidney disease stage: on chronic dialysis Qualified Code(s): N17.9 - Acute kidney failure, unspecified; N18.9 - Chronic kidney disease, unspecified; Z99.2 - Dependence on renal dialysis Is this a current diagnosis for this admission?: Yes Plan: 08/30/18 17:03 The patient is on scheduled to receive hemodialysis tomorrow. Nephrology is working on an outpatient slot for his hemodialysis. Screening laboratory tests are pending. I will discuss with Dr. Steele regarding timing of the dialysis catheter placement as well as expanding on plans for further investigations of the renal mass. The patient has extremely limited urine output. Urine output yesterday was only 75 mL. 08/30/18 17:04 (2) Hyperkalemia Is this a current diagnosis for this admission?: Yes Plan: 08/30/18 17:05 The patient's serum potassium is normal at 4.9. Laboratory studies are ordered for tomorrow. He is on the schedule for hemodialysis tomorrow as well. Continue to monitor his serum potassium. (3) Hypertension Qualifiers: Hypertension type: essential hypertension Qualified Code(s): I10 - Essential (primary) hypertension Is this a current diagnosis for this admission?: Yes Plan: 08/30/18 17:06 Systolic blood pressure still occasionally higher than goal despite multiple medications. Continue the metoprolol, amlodipine, hydralazine and Cardura. (4) Renal mass Is this a current diagnosis for this admission?: Yes Plan: 08/30/18 17:[address] Greco note. The patient will need a biopsy of the renal mass. The possibility of the timing of a kidney transplant is predicated on the biopsy. Malignancy will delay being able to be on the list for 2 years. There was mention of biopsy at [facility]. I will discuss further with Dr. Steele specifically about arrangements being made. It is likely that he can be seen as an outpatient. - Time Time Spent with patient: 15-24 minutes Medications reviewed and adjusted accordingly: Yes Anticipated discharge: Home - Inpatient Certification Based on my medical assessment, after consideration of the patient's comorbidities, presenting symptoms, or acuity I expect that the services needed warrant INPATIENT care.: Yes I certify that my determination is in accordance with my understanding of Medicare's requirements for reasonable and necessary INPATIENT services [42 CFR 412.3e].: Yes
[2018-08-30] MEDS: CLONAZEPAM 1 MG TABLET PO PRN (21:07)
[2018-08-30] MEDS: ROPINIROLE HCL 1 MG TABLET PO SCH (21:07)
[2018-08-31 04:05] LABS: HEMOGLOBIN 8.1 g/dL (13.5-17.0); MEAN CORPUSCULAR HEMOGLOBIN 31.2 pg (27.0-33.4); MEAN CORPUSCULAR HGB CONC 33.9 g/dL (32.0-36.0); MEAN CORPUSCULAR VOLUME 92 fl (80-97); PLATELET COUNT 260 10^3/uL (150-450); RED CELL DISTRIBUTION WIDTH 14.4 % (11.5-14.0); WHITE BLOOD COUNT 6.9 10^3/uL (4.0-10.5)
[2018-08-31] MEDS ORDERED: EPOETIN ALFA INJ 20000 UNIT/1 ML VIAL (RENAL) IV PRN (05:00)
[2018-08-31] MEDS: HYDRALAZINE HCL 50 MG TABLET PO SCH ×3 (05:04→21:39)
[2018-08-31] MEDS: HEPARIN SOD (PORCINE) 5,000 UNIT/ML 1 ML SYRINGE SUBCUT SCH ×3 (05:04→21:39)
[2018-08-31 07:59] LABS: ANION GAP 11 (5-19); BLOOD UREA NITROGEN 49 mg/dL (7-20); CALCIUM 8.3 mg/dL (8.4-10.2); CARBON DIOXIDE 25 mmol/L (22-30); CHLORIDE 100 mmol/L (98-107); GLUCOSE 94 mg/dL (75-110); POTASSIUM 4.6 mmol/L (3.6-5.0); SODIUM 135.6 mmol/L (137-145)
[2018-08-31] MEDS: CALCIUM ACETATE 667 MG CAPSULE PO SCH ×3 (09:18→18:27)
[2018-08-31 10:39] LABS: HEPATITIS C QUANTITATION HCV Not Detected IU/mL (.)
[2018-08-31] MEDS: DOXAZOSIN MESYLATE 2 MG TABLET PO SCH (11:22)
[2018-08-31] MEDS: CHOLECALCIFEROL (D3) 1,000 UNIT TABLET PO SCH (11:22)
[2018-08-31] MEDS: AMLODIPINE BESYLATE 10 MG TABLET PO SCH (11:23)
[2018-08-31] MEDS: METOPROLOL TARTRATE 100 MG TABLET PO SCH ×2 (11:23→21:39)
[2018-08-31] MEDS: MINOXIDIL 2.5 MG TABLET PO SCH ×2 (11:23→21:36)
[2018-08-31] MEDS: OXYCODONE-ACETAMINOPHEN 5-325 MG TABLET PO PRN (11:50)
[2018-08-31 14:40] LABS: A/G RATIO 1.1 (0.7-1.7); ALBUMIN 2 2.5 g/dL (2.9-4.4); ALPHA-2-GLOBULIN 2 0.9 g/dL (0.4-1.0); BETA GLOBULINS 0.6 g/dL (0.7-1.3); GAMMA GLOBULIN 0.6 g/dL (0.4-1.8); GLOBULIN TOTAL 2.2 g/dL (2.2-3.9); MONOCLONAL SPIKE Not Observed g/dL (Not Observ); PROTEIN TOTAL SERUM 4.7 g/dL (6.0-8.5)
--- NOTE | 2018-08-31 17:05 | PDOC PROGRESS REPORT ---
Subjective Progress Note for:: 08/31/18 Reason For Visit: Patient seen today on dialysis. He is undergoing dialysis through a temporary IJ right catheter. He denies any such chest pain or shortness of breath. No history of nausea vomiting or fever chills. Labs and medications were reviewed that shows worsening renal functions with a creatinine of 10+. He is still anuric. Physical Exam Vital Signs: Temp Pulse Resp BP Pulse Ox 98.2 F 78 16 144/59 H 98 08/31/18 11:59 08/31/18 11:59 08/31/18 11:59 08/31/18 11:59 08/31/18 11:59 Intake & Output 08/30/18 08/31/18 09/01/18 06:59 06:59 06:59 Intake Total 820 Output Total 0941 549 5553 Balance -1460 720 -2600 Weight 125.8 kg 129.5 kg General appearance: PRESENT: no acute distress Respiratory exam: PRESENT: clear to auscultation octavia. ABSENT: crackles Cardiovascular exam: PRESENT: +S1, +S2, systolic murmur GI/Abdominal exam: PRESENT: distended, normal bowel sounds, soft. ABSENT: organomegaly, tenderness Extremities exam: PRESENT: pedal edema Neurological exam: PRESENT: alert, awake, oriented to person, oriented to place, oriented to time Psychiatric exam: PRESENT: flat affect Skin exam: ABSENT: cyanosis, erythema, mottled Results Laboratory Results: 08/31/18 03:50 08/31/18 03:50 08/31/18 08/31/18 03:50 03:50 WBC 6.9 RBC 2.60 L Hgb 8.1 L Hct 24.0 L MCV 92 MCH 31.2 MCHC 33.9 RDW 14.4 H Plt Count 260 Sodium 135.6 L Potassium 4.6 Chloride 100 Carbon Dioxide 25 Anion Gap 11 BUN 49 H Creatinine 10.32 H Est GFR ( Amer) 6 L Est GFR (Non-Af Amer) 5 L Glucose 94 Calcium 8.3 L Impressions: Chest X-Ray 08/26/18 12:44 IMPRESSION: Interval placement of right neck large bore multi lumen vascular catheter, tip projecting near the superior cavoatrial junction. No pneumothorax or pleural effusion. Assessment & Plan - Diagnosis (1) Acute kidney injury superimposed on chronic kidney disease Is this a current diagnosis for this admission?: Yes Plan: Patient presents with acute anuric renal injury on top of CKD 4.Unfortunately still continues to be anuric which has a poor prognosis. Patient currently seen on dialysis. Plan to remove between 1 and 2 L as tolerated. Dialysis being supervised to ensure safe and smooth procedure. Dialysis orders were reviewed with the treating dialysis nurse. Plan to convert his temporary right IJ catheter to permacath prior to discharge. He is ready for discharge from a renal standpoint of view. Will make arrangements for his outpatient dialysis at [facility]. Need to get discharge planning to get this going and coordinate transfer to outpatient site. 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 Unfortunately he is now in anuric renal shutdown and has worsened with severe hyperkalemia and had to be initiated on hemodialysis. Monitor for recovery of renal functions. On top of that he has a renal mass that needs further evaluation as an outpatient. (3) Hyperkalemia Is this a current diagnosis for this admission?: Yes Plan: Now stable. Monitor. (4) Metabolic acidosis Plan: Has resolved with initiation of dialysis. Monitor. (5) Severe hypertension Is this a current diagnosis for this admission?: Yes Plan: Currently stable. Monitor. (6) Anemia in chronic kidney disease (CKD) Qualifiers: Chronic kidney disease stage: stage 3 (moderate) Qualified Code(s): N18.3 - Chronic kidney disease, stage 3 (moderate); D63.1 - Anemia in chronic kidney disease Is this a current diagnosis for this admission?: Yes Plan: Titrated EPO accordingly.Adequate iron studies. (7) Nephrotic range proteinuria Is this a current diagnosis for this admission?: Yes Plan: Status quo monitor. Currently unable to start on any raas blockers because of severe hyperkalemia. (8) Renal mass Is this a current diagnosis for this admission?: Yes Plan: The patient was referred to urology last year . Apparently for insurance reasons and others patient has not kept up with appointments with urology when they apparently wanted to do a procedure most likely renal biopsy on this patient. Therefore he he has been lost to follow up visits with them. Patient now wants to be evaluated by [facility] urology as it was at [facility] where he donated his kidney to his sister and they have his records from then on. Plan to make [facility] urology referral either now or once he is discharged from the hospital.
[2018-08-31] MEDS ORDERED: IRON SUCROSE COMPLEX INJ/PF 100 MG/5 ML SDV IV SCH (18:00)
[2018-08-31] MEDS: ROPINIROLE HCL 1 MG TABLET PO SCH (21:35)
[2018-08-31] MEDS: CLONAZEPAM 1 MG TABLET PO PRN (21:36)
--- NOTE | 2018-09-01 06:26 | PDOC PROGRESS REPORT ---
Subjective Progress Note for:: 08/31/18 Subjective:: Permacath tomorrow at 1230 Reason For Visit: HYPERKALEMIA NEED FOR VASCULAR ACCESS Physical Exam Vital Signs: Temp Pulse Resp BP Pulse Ox 98.2 F 78 16 144/59 H 98 08/31/18 11:59 08/31/18 11:59 08/31/18 11:59 08/31/18 11:59 08/31/18 11:59 Intake & Output 08/30/18 08/31/18 09/01/18 06:59 06:59 06:59 Intake Total 820 Output Total 6320 366 4881 Balance -1460 720 -2600 Weight 125.8 kg 129.5 kg General appearance: PRESENT: no acute distress, cooperative Head exam: PRESENT: atraumatic, normocephalic Eye exam: PRESENT: conjunctiva pale. ABSENT: scleral icterus Mouth exam: PRESENT: moist, tongue midline Respiratory exam: PRESENT: symmetrical, unlabored. ABSENT: accessory muscle use, rales, rhonchi, wheezes Cardiovascular exam: PRESENT: RRR, +S1, +S2 GI/Abdominal exam: PRESENT: normal bowel sounds, soft. ABSENT: distended, tenderness Rectal exam: PRESENT: deferred Extremities exam: PRESENT: +1 edema Neurological exam: PRESENT: alert, awake, oriented to person, oriented to place, oriented to situation, other - The patient certainly seems to have trouble recalling anything with great detail. Psychiatric exam: PRESENT: flat affect. ABSENT: agitated, anxious Focused psych exam: ABSENT: delusional, restlessness Results Laboratory Results: 08/31/18 03:50 08/31/18 03:50 08/31/18 08/31/18 03:50 03:50 WBC 6.9 RBC 2.60 L Hgb 8.1 L Hct 24.0 L MCV 92 MCH 31.2 MCHC 33.9 RDW 14.4 H Plt Count 260 Sodium 135.6 L Potassium 4.6 Chloride 100 Carbon Dioxide 25 Anion Gap 11 BUN 49 H Creatinine 10.32 H Est GFR ( Amer) 6 L Est GFR (Non-Af Amer) 5 L Glucose 94 Calcium 8.3 L Impressions: Chest X-Ray 08/26/18 12:44 IMPRESSION: Interval placement of right neck large bore multi lumen vascular catheter, tip projecting near the superior cavoatrial junction. No pneumothorax or pleural effusion. Assessment and Plan - Diagnosis (1) Acute renal failure superimposed on chronic kidney disease Qualifiers: Acute renal failure type: unspecified Chronic kidney disease stage: on chronic dialysis Qualified Code(s): N17.9 - Acute kidney failure, unspecified; N18.9 - Chronic kidney disease, unspecified; Z99.2 - Dependence on renal dialysis Is this a current diagnosis for this admission?: Yes Plan: Still with limited urine output. The plan is for insertion of the Vas-Cath tomorrow and then discharge. He should have an outpatient dialysis slot set up. Continue to follow with nephrology. (2) Hyperkalemia Is this a current diagnosis for this admission?: Yes Plan: Resolved. Continue to monitor potassium levels. (3) Hypertension Qualifiers: Hypertension type: essential hypertension Qualified Code(s): I10 - Essential (primary) hypertension Is this a current diagnosis for this admission?: Yes Plan: Continue current medication regimen. Medications will be adjusted on an outpatient basis by nephrology if needed. (4) Renal mass Is this a current diagnosis for this admission?: Yes Plan: We called [facility] and urology refused the referral. They stated that the patient's primary care physician needed to make the referral so we were not able to set up an appointment. - Time Time Spent with patient: 15-24 minutes Medications reviewed and adjusted accordingly: Yes Anticipated discharge: Home Within: within 48 hours - Plan Summary Plan Summary: Called urology at [facility]. The patient needs to be referred by his primary care physician to set up an appointment for a biopsy of the kidney.
[2018-09-01 07:00] LABS: ANION GAP 6 (5-19); BLOOD UREA NITROGEN 37 mg/dL (7-20); CALCIUM 8.4 mg/dL (8.4-10.2); CARBON DIOXIDE 29 mmol/L (22-30); CHLORIDE 100 mmol/L (98-107); GLUCOSE 93 mg/dL (75-110); POTASSIUM 4.3 mmol/L (3.6-5.0); SODIUM 135.3 mmol/L (137-145)
[2018-09-01] MEDS: HEPARIN SOD (PORCINE) 5,000 UNIT/ML 1 ML SYRINGE SUBCUT SCH ×3 (07:09→22:55)
[2018-09-01] MEDS: HYDRALAZINE HCL 50 MG TABLET PO SCH ×3 (07:09→22:54)
[2018-09-01] MEDS: CALCIUM ACETATE 667 MG CAPSULE PO SCH ×3 (07:47→16:47)
[2018-09-01] MEDS: CHOLECALCIFEROL (D3) 1,000 UNIT TABLET PO SCH (09:07)
[2018-09-01] MEDS: AMLODIPINE BESYLATE 10 MG TABLET PO SCH (09:07)
[2018-09-01] MEDS: METOPROLOL TARTRATE 100 MG TABLET PO SCH ×2 (09:07→22:56)
[2018-09-01] MEDS ORDERED: DOXAZOSIN MESYLATE 2 MG TABLET PO SCH (10:00)
[2018-09-01] MEDS: DOXAZOSIN MESYLATE 4 MG TABLET PO SCH (11:24)
[2018-09-01] MEDS ORDERED: BACITRACIN INJ 50,000 UNIT VIAL ONE (11:58)
[2018-09-01] MEDS ORDERED: LIDOCAINE 0.5% INJ-PF (5 MG/ML) 50 ML SDV ONE ×2 (11:58→13:47)
--- NOTE | 2018-09-01 12:07 | PDOC PROGRESS REPORT ---
Subjective Progress Note for:: 09/01/18 Reason For Visit: Patient seen this morning. at the bedside. Patient denies any specific complaints chest pain, shortness of breath abdominal pains. Posted for IJ PermCath this afternoon. Still hardly put producing any urine. Labs and medications reviewed with the patient. Physical Exam Vital Signs: Temp Pulse Resp BP Pulse Ox 98.6 F 92 16 151/68 H 97 09/01/18 08:55 09/01/18 08:55 09/01/18 08:55 09/01/18 08:55 09/01/18 08:55 Intake & Output 08/31/18 09/01/18 09/02/18 06:59 06:59 06:59 Intake Total 820 837 Output Total 100 2650 Balance 720 -1813 Weight 129.5 kg 124.1 kg General appearance: PRESENT: no acute distress Respiratory exam: PRESENT: clear to auscultation octavia. ABSENT: crackles Cardiovascular exam: PRESENT: +S1, +S2, systolic murmur GI/Abdominal exam: PRESENT: distended, normal bowel sounds, soft. ABSENT: organomegaly, tenderness Extremities exam: ABSENT: pedal edema Neurological exam: PRESENT: alert, awake, oriented to person, oriented to place Results Laboratory Results: 08/31/18 03:50 09/01/18 06:30 08/30/18 09/01/18 05:45 06:30 Sodium 135.3 L Potassium 4.3 Chloride 100 Carbon Dioxide 29 Anion Gap 6 BUN 37 H Creatinine 9.65 H Est GFR ( Amer) 7 L Est GFR (Non-Af Amer) 6 L Glucose 93 Calcium 8.4 Total Protein 4.7 L Albumin 2.5 L Impressions: Chest X-Ray 08/26/18 12:44 IMPRESSION: Interval placement of right neck large bore multi lumen vascular catheter, tip projecting near the superior cavoatrial junction. No pneumothorax or pleural effusion. Assessment & Plan - Diagnosis (1) Acute kidney injury superimposed on chronic kidney disease Is this a current diagnosis for this admission?: Yes Plan: Patient presents with acute anuric renal injury on top of CKD 4.Unfortunately still continues to be anuric which has a poor prognosis. He is being converted from a temporary right IJ catheter to permacath prior to discharge. He is ready for discharge from a renal standpoint of view. Will make arrangements for his outpatient dialysis at [facility] on [address]. Need to get discharge planning to get this going and coordinate transfer to outpatient site.Will arrange for inpatient dialysis tomorrow. 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 Unfortunately he is now in anuric renal shutdown and has worsened with severe hyperkalemia and had to be initiated on hemodialysis. Monitor for recovery of renal functions. Unfortunately so far he is hardly making any urine which is a very poor prognostic indicator and indicates ESRD status. On top of that he has a renal mass that needs further evaluation as an outpatient. (3) Hyperkalemia Is this a current diagnosis for this admission?: Yes Plan: Now stable. Monitor. (4) Metabolic acidosis Plan: Has resolved with initiation of dialysis. Monitor. (5) Severe hypertension Is this a current diagnosis for this admission?: Yes Plan: Much better. I would like to taper him off the minoxidil and therefore I am going to increase his doxazosin accordingly. (6) Anemia in chronic kidney disease (CKD) Qualifiers: Chronic kidney disease stage: stage 3 (moderate) Qualified Code(s): N18.3 - Chronic kidney disease, stage 3 (moderate); D63.1 - Anemia in chronic kidney disease Is this a current diagnosis for this admission?: Yes Plan: Titrated EPO accordingly.Adequate iron studies. (7) Nephrotic range proteinuria Is this a current diagnosis for this admission?: Yes Plan: Status quo monitor. Currently unable to start on any raas blockers because of severe hyperkalemia. (8) Renal mass Is this a current diagnosis for this admission?: Yes Plan: The patient was referred to urology last year . Apparently for insurance reasons and others patient has not kept up with appointments with urology when they apparently wanted to do a procedure most likely renal biopsy on this patient. Therefore he he has been lost to follow up visits with them. Patient now wants to be evaluated by [facility] urology as it was at [facility] where he donated his kidney to his sister and they have his records from then on. Dr. Cruz/hospitalist did try to make a [facility] a referral from the hospital the other day but they refused that and asked that it be made by his primary care physician once he is discharged.
[2018-09-01] MEDS ORDERED: MIDAZOLAM 2 MG/2 ML INJ ONE (12:10)
[2018-09-01] MEDS ORDERED: FENTANYL CITRATE INJ/PF 100 MCG/2 ML AMPUL ONE (12:11)
[2018-09-01] MEDS ORDERED: DIAZEPAM 5 MG TABLET PO PRN (12:15)
[2018-09-01] MEDS: OXYCODONE-ACETAMINOPHEN 5-325 MG TABLET PO PRN ×2 (12:31→22:59)
[2018-09-01] MEDS ORDERED: CEFAZOLIN INJ 1 GM VIAL ONE (12:54)
--- NOTE | 2018-09-01 14:02 | RADIOLOGY REPORT (SQ) ---
EXAM DESCRIPTION: TUNNELED CENTRAL LINE COMPLETED DATE/TIME: 09/01/2018 1:51 pm REASON FOR STUDY: NEED FOR VASCULAR ACCESS COMPARISON: AP chest 08/26/2018 FLUOROSCOPY TIME: 0.1 minutes 18 series of digital radiographic images saved to PACS. TECHNIQUE: Intra-operative images acquired during surgical procedure to evaluate progress. NUMBER OF IMAGES: 18 series of digital radiographic images LIMITATIONS: None. FINDINGS: Intra procedural imaging and fluoro during placement of a right-sided central venous dialy sis catheter with the tip in the right atrium. Please see the operative report for further details IMPRESSION: INTRA PROCEDURAL IMAGING ABOVE . COMMENT: Quality ID [id number]: Final reports for procedures using fluoroscopy that document radiation exp osure indices, or exposure time and number of fluorographic images (if radiation exposure indices are not available) Please consult full operative report of the attending physician for description of the procedure. TECHNICAL DOCUMENTATION: JOB ID: [id number] [employer]- All Rights Reserved Reading location - IP/workstation name: [email or web address]
[2018-09-01] MEDS ORDERED: ALPRAZOLAM 0.25 MG TABLET PO PRN (17:07)
[2018-09-01] MEDS ORDERED: OXYCODONE-ACETAMINOPHEN 5-325 MG TABLET PO ONE (17:30)
--- NOTE | 2018-09-01 17:37 | Operative Report ---
Operative Report DATE OF SURGERY: 09/01/18 PREOPERATIVE DIAGNOSIS: End-stage renal disease on hemodialysis. POSTOPERATIVE DIAGNOSIS: End-stage renal disease on hemodialysis. OPERATION: Insertion of right internal jugular PermCath. Angiogram and interpretation. SURGEON: MARYAM HAIDER [employer] AND TROLLEY INSPECTING DISPATCHER: None. ANESTHESIA: Moderate Sedation TISSUE REMOVED OR ALTERED: Not applicable. COMPLICATIONS: None. ESTIMATED BLOOD LOSS: 5 mL. INTRAOPERATIVE FINDINGS: Open existing temporary hemodialysis catheter which was replaced with a guidewire. The guidewire was used to insert the new permacatheter. Satisfactory position by x-ray. Angiogram demonstrated the tip of the catheter down in the right atrial pool. Easy egress of blood and ingress of heparinized solution through both ports. Postprocedure limited chest x-ray demonstrates normal looking permacatheter and normal right apex. PROCEDURE: After obtaining informed consent, the patient was taken to the [Chemical Compounder] and positioned supine. The [right neck] and chest were prepared with chlorhexidine and draped out with sterile linen. This included the temporary hemodialysis catheter, excluding the distal portion. After the " universal timeout", in which it was verified that the patient continued to receive antibiotic, the procedure commenced.. Local anesthesia was infiltrated adjacent to the existing temporary cath. Access into the [right internal jugular] vein was obtained using a 0.035 guidewire the tip of which was placed down into the inferior vena cava . This was done by transecting the temporary catheter using the proximal portion for access. The proximal portion was then removed and discarded off the field. A 2 7 cm long [split catheter] was now positioned over the chest and an exit site marked and locally anesthetized ,the catheter was placed between the 2 incisions. Proximally, the catheter was now positioned using a peel-away sheath, after dilation. Easy ingress of heparinized solution and egress of blood obtained through both ports. A completion angiogram was done by injecting contrast. The findings were as dictated. The neck incision was now closed using interrupted 3-0 PDS to the subcutaneous tissues, the catheter was anchored at the exit site using 3-0 PDS. A Biopatch device was now placed adjacent to the catheter. Dressings were applied and the procedure concluded. Copies of the dictated operative report for Dr. Maryam Perla MD.concluded. Copies of the dictated operative report for Dr. Maryam Perla MD.
[2018-09-01] MEDS: ROPINIROLE HCL 1 MG TABLET PO SCH (22:57)
[2018-09-02] MEDS ORDERED: OXYCODONE-ACETAMINOPHEN 5-325 MG TABLET PO PRN (05:00)
[2018-09-02] MEDS ORDERED: DIAZEPAM 5 MG TABLET PO PRN (05:00)
[2018-09-02] MEDS: HEPARIN SOD (PORCINE) 5,000 UNIT/ML 1 ML SYRINGE SUBCUT SCH ×2 (06:11→14:00)
[2018-09-02] MEDS: HYDRALAZINE HCL 50 MG TABLET PO SCH ×2 (06:12→16:38)
--- NOTE | 2018-09-02 06:37 | PDOC PROGRESS REPORT ---
Subjective Progress Note for:: 09/01/18 Subjective:: The patient reports that he will occasionally get lightheaded. It is not necessarily related to acute change in position but he can be ambulating and feel lightheaded. Been dialysis this morning when he went to step on the scale he fell. He still has a very depressed affect. Reason For Visit: HYPERKALEMIA NEED FOR VASCULAR ACCESS Physical Exam Vital Signs: Temp Pulse Resp BP Pulse Ox 97.8 F 65 13 117/57 L 99 09/01/18 10:55 09/01/18 10:55 09/01/18 10:55 09/01/18 10:55 09/01/18 10:55 Intake & Output 08/31/18 09/01/18 09/02/18 06:59 06:59 06:59 Intake Total 820 837 0 Output Total 100 2650 Balance 720 -1813 0 Weight 129.5 kg 124.1 kg General appearance: PRESENT: no acute distress, cooperative, well-developed Head exam: PRESENT: atraumatic, normocephalic Eye exam: PRESENT: conjunctiva pale. ABSENT: scleral icterus Mouth exam: PRESENT: dry mucosa, neck supple, tongue midline Respiratory exam: PRESENT: clear to auscultation octavia, symmetrical, unlabored. ABSENT: rales, rhonchi, wheezes Cardiovascular exam: PRESENT: RRR, +S1, +S2, systolic murmur - 2/6 GI/Abdominal exam: PRESENT: normal bowel sounds, soft. ABSENT: distended, tenderness Extremities exam: PRESENT: pedal edema Psychiatric exam: PRESENT: depressed, other - According to his he exhibits problems with attention span and concentration. His appetite has been poor. Affect is always extremely flat. He has difficulty sleeping and tends to be restless. Results Laboratory Results: 08/31/18 03:50 09/01/18 06:30 08/30/18 09/01/18 05:45 06:30 Sodium 135.3 L Potassium 4.3 Chloride 100 Carbon Dioxide 29 Anion Gap 6 BUN 37 H Creatinine 9.65 H Est GFR ( Amer) 7 L Est GFR (Non-Af Amer) 6 L Glucose 93 Calcium 8.4 Total Protein 4.7 L Albumin 2.5 L Impressions: Chest X-Ray 08/26/18 12:44 IMPRESSION: Interval placement of right neck large bore multi lumen vascular catheter, tip projecting near the superior cavoatrial junction. No pneumothorax or pleural effusion. Central Venous Line 09/01/18 00:00 IMPRESSION: INTRA PROCEDURAL IMAGING ABOVE . Assessment and Plan - Diagnosis (1) Acute renal failure superimposed on chronic kidney disease Qualifiers: Acute renal failure type: unspecified Chronic kidney disease stage: on chronic dialysis Qualified Code(s): N17.9 - Acute kidney failure, unspecified; N18.9 - Chronic kidney disease, unspecified; Z99.2 - Dependence on renal dialysis Is this a current diagnosis for this admission?: Yes Plan: The patient donated a kidney to his sister. His remaining kidney has a mass. This is been present for over a year. Unfortunately his kidney has failed and the patient is now on dialysis. He received a permacath earlier this morning. I discussed the patient with Dr. Steele. The patient will receive hemodialysis tomorrow and then be discharged home. An outpatient dialysis slot is being arranged. (2) Hyperkalemia Is this a current diagnosis for this admission?: Yes Plan: Potassium was elevated on admission. Likely due to his change in renal status. This has resolved. (3) Hypertension Qualifiers: Hypertension type: essential hypertension Qualified Code(s): I10 - Essential (primary) hypertension Is this a current diagnosis for this admission?: Yes Plan: The patient is on multiple medications for hypertension. These include hydralazine, doxazosin, amlodipine and metoprolol. On his current regimen he has reasonable blood pressure control. The symptoms that he describes are most likely related to medication. Hydralazine would be the most likely culprit. I suggested he review this with nephrology and be very specific about his complaints. (4) Renal mass Is this a current diagnosis for this admission?: Yes Plan: Patient has had a renal mass on the kidney for over a year. Recent imaging suggests the possibility of renal cell carcinoma. The patient will require biopsy. Because of his current renal status the patient would want to be placed on a transplant list but clearly the results of biopsy will weigh in heavily regarding his candidacy for a transplant. We did reach out to [facility]. Unfortunately the urology department stated that they would not make an appointment from the hospital. They insisted that the patient visit his primary care physician and be referred. Nephrology will try and call as well. (5) Depression with anxiety Is this a current diagnosis for this admission?: Yes Plan: Asked the patient if he was depressed. He initially said no. I explained that he has a very flat affect. I also reviewed symptoms of depression including poor sleep, poor concentration and attention span, decreased appetite with depressed mood. His reports that he exhibits all of these symptoms. He admits to being very anxious and overwhelmed by his current situation. There is some fear regarding the possible biopsy results revealing a malignancy. As he already donated one kidney it is possible that if there is malignancy he may not be a candidate for transplant. There is also the possibility of metastatic disease as the patient has not been worked up as yet. We discussed the potential depressant effects of medications. It has been known to happen with some antihypertensives. We discussed starting a new medication for depression. I explained that there are several different classes of medications. I explained that everyone worries about side effects. There are side effects with any medication. Typically based on the symptom complex the provider chooses m edication deemed effective for the patient. They typically start a very low dose and increase slowly. His kidney failure would be a consideration regarding medication and dosage. It does take time for the medication to be effective. After considering all of this the patient would be amenable to starting medication. I explained that it would be best if started by his primary care provider rather than me initiating medication and no follow-up. The patient will discuss this with his primary care provider after discharge. (6) Restless legs syndrome (RLS) Is this a current diagnosis for this admission?: Yes Plan: The patient is on ropinirole currently. He still feels restless. See discussion above. - Time Time Spent with patient: 25-34 minutes Medications reviewed and adjusted accordingly: Yes Anticipated discharge: Home Within: within 24 hours
[2018-09-02 06:47] LABS: HEMATOCRIT 27.9 % (37.9-51.0); HEMOGLOBIN 9.2 g/dL (13.5-17.0); MEAN CORPUSCULAR HEMOGLOBIN 31.4 pg (27.0-33.4); MEAN CORPUSCULAR VOLUME 95 fl (80-97); PLATELET COUNT 279 10^3/uL (150-450); RED BLOOD COUNT 2.93 10^6/uL (4.35-5.55); RED CELL DISTRIBUTION WIDTH 14.7 % (11.5-14.0); WHITE BLOOD COUNT 7.6 10^3/uL (4.0-10.5)
[2018-09-02] MEDS ORDERED: IRON SUCROSE COMPLEX INJ/PF 100 MG/5 ML SDV IV PRN (07:53)
[2018-09-02] MEDS ORDERED: EPOETIN ALFA INJ 20000 UNIT/1 ML VIAL (RENAL) IV PRN (07:53)
[2018-09-02 08:07] LABS: ANION GAP 12 (5-19); BLOOD UREA NITROGEN 42 mg/dL (7-20); CALCIUM 8.3 mg/dL (8.4-10.2); CARBON DIOXIDE 26 mmol/L (22-30); CHLORIDE 101 mmol/L (98-107); GLUCOSE 98 mg/dL (75-110); POTASSIUM 4.8 mmol/L (3.6-5.0); SODIUM 138.5 mmol/L (137-145)
[2018-09-02] MEDS ORDERED: MINOXIDIL 2.5 MG TABLET PO SCH (10:00)
--- NOTE | 2018-09-02 11:05 | PDOC PROGRESS REPORT ---
Subjective Progress Note for:: 09/02/18 Reason For Visit: Patient is now deemed ESRD and currently undergoing dialysis. This is no specific complaints of any chest pain shortness of breath. Underwent a PermCath placement yesterday which was uneventful. Labs and medications were reviewed. Is otherwise stable and ready for discharge from renal point of view. He should have his next dialysis hopefully sometime early next week. Physical Exam Vital Signs: Temp Pulse Resp BP Pulse Ox 98 F 73 16 121/59 L 98 09/02/18 08:00 09/02/18 08:00 09/02/18 08:00 09/02/18 08:00 09/02/18 08:00 Intake & Output 09/01/18 09/02/18 09/03/18 06:59 06:59 06:59 Intake Total 837 320 Output Total 2650 Balance -1813 320 Weight 124.1 kg 125.4 kg General appearance: PRESENT: no acute distress Respiratory exam: PRESENT: clear to auscultation octavia. ABSENT: crackles Cardiovascular exam: PRESENT: +S1, +S2, systolic murmur GI/Abdominal exam: PRESENT: distended, normal bowel sounds, soft. ABSENT: organomegaly, tenderness Extremities exam: PRESENT: pedal edema Neurological exam: PRESENT: alert, awake, oriented to person, oriented to place Results Laboratory Results: 09/02/18 06:30 09/02/18 06:30 09/02/18 09/02/18 06:30 06:30 WBC 7.6 RBC 2.93 L Hgb 9.2 L Hct 27.9 L MCV 95 MCH 31.4 MCHC 33.0 RDW 14.7 H Plt Count 279 Sodium 138.5 Potassium 4.8 Chloride 101 Carbon Dioxide 26 Anion Gap 12 BUN 42 H Creatinine 10.28 H Est GFR ( Amer) 6 L Est GFR (Non-Af Amer) 5 L Glucose 98 Calcium 8.3 L Impressions: Chest X-Ray 08/26/18 12:44 IMPRESSION: Interval placement of right neck large bore multi lumen vascular catheter, tip projecting near the superior cavoatrial junction. No pneumothorax or pleural effusion. Central Venous Line 09/01/18 00:00 IMPRESSION: INTRA PROCEDURAL IMAGING ABOVE . Assessment & Plan - Diagnosis (1) Acute kidney injury superimposed on chronic kidney disease Is this a current diagnosis for this admission?: Yes Plan: Patient presents with acute anuric renal injury on top of CKD 4.Unfortunately still continues to be anuric which has a poor prognosis.He is now deemed ESRD. He has been converted from a temporary right IJ catheter to permacath yesterday He is ready for discharge from a renal standpoint of view. Will make arrangements for his outpatient dialysis at [facility]. Need to get discharge planning to get this going and coordinate transfer to outpatient site.Will arrange for inpatient dialysis tomorrow. 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 Unfortunately he is now in anuric renal shutdown and has worsened with severe hyperkalemia and had to be initiated on hemodialysis. Monitor for recovery of renal functions has been dismal with him still anuric. Unfortu nately so far he is hardly making any urine which is a very poor prognostic indicator and indicates ESRD status. On top of that he has a renal mass that needs further evaluation as an outpatient. (3) Hyperkalemia Is this a current diagnosis for this admission?: Yes Plan: Now stable. Monitor. (4) Metabolic acidosis Plan: Has resolved with initiation of dialysis. Monitor. (5) Severe hypertension Is this a current diagnosis for this admission?: Yes Plan: Much better. I would like to taper him off the minoxidil and therefore I have increased his doxazosin accordingly.Further titration can be done as an outpatient. (6) Anemia in chronic kidney disease (CKD) Qualifiers: Chronic kidney disease stage: stage 3 (moderate) Qualified Code(s): N18.3 - Chronic kidney disease, stage 3 (moderate); D63.1 - Anemia in chronic kidney disease Is this a current diagnosis for this admission?: Yes Plan: Titrated EPO accordingly.Adequate iron studies. (7) Nephrotic range proteinuria Is this a current diagnosis for this admission?: Yes Plan: Currently amount of no consequence since he is anuric on a single kidney. (8) Renal mass Is this a current diagnosis for this admission?: Yes Plan: The patient was referred to urology last year . Apparently for insurance reasons and others patient has not kept up with appointments with urology when they apparently wanted to do a procedure most likely renal biopsy on this patient. Therefore he he has been lost to follow up visits with them. Patient now wants to be evaluated by [facility] urology as it was at [facility] where he donated his kidney to his sister and they have his records from then on. Dr. Cruz/hospitalist did try to make a [facility] a referral from the hospital the other day but they refused that and asked that it be made by his primary care physician once he is discharged.
[2018-09-02] MEDS: OXYCODONE-ACETAMINOPHEN 5-325 MG TABLET PO PRN (11:25)
[2018-09-02] MEDS: METOPROLOL TARTRATE 100 MG TABLET PO SCH (11:26)
[2018-09-02] MEDS: AMLODIPINE BESYLATE 10 MG TABLET PO SCH (11:26)
[2018-09-02] MEDS: DOXAZOSIN MESYLATE 4 MG TABLET PO SCH (11:27)
[2018-09-02] MEDS: CHOLECALCIFEROL (D3) 1,000 UNIT TABLET PO SCH (11:28)
[2018-09-02] MEDS: CALCIUM ACETATE 667 MG CAPSULE PO SCH ×2 (11:28→16:35)
--- NOTE | 2018-09-02 15:37 | PDOC DISCHARGE SUMMARY ---
General - Admit/Disc Date/PCP Admission Date/Primary Care Provider: 08/25/18 16:42 JOANN ARELLANO MD Discharge Date: 09/02/18 - Discharge Diagnosis (1) Acute renal failure superimposed on chronic kidney disease Is this a current diagnosis for this admission?: Yes (2) Depression with anxiety Is this a current diagnosis for this admission?: Yes (3) Diabetes mellitus type 2 in obese Is this a current diagnosis for this admission?: No (4) Restless legs syndrome (RLS) Is this a current diagnosis for this admission?: Yes (5) Renal mass Is this a current diagnosis for this admission?: Yes - Additional Information Resuscitation Status: Full Code Discharge Diet: Cardiac, Diabetic Discharge Activity: Activity As Tolerated, Other - Follow post port recom mendations Prescriptions: Calcium Acetate [Phoslo 667 mg Capsule] 1,334 mg PO MEALS #30 capsule Doxazosin Mesylate [Cardura 4 mg Tablet] 4 mg PO DAILY #30 tablet Hydralazine HCl [Apresoline 50 mg Tablet] 100 mg PO Q8 #90 tablet Minoxidil [Loniten 2.5 mg Tablet] 5 mg PO DAILY #60 tablet Ropinirole HCl [Requip] 0.5 mg PO QHS #30 tablet Home Medications: Allopurinol [Zyloprim 300 mg Tablet] 300 mg PO DAILY 08/26/18 Amlodipine Besylate [Norvasc 10 mg Tablet] 10 mg PO DAILY 08/26/18 Atorvastatin Calcium [Lipitor] 80 mg PO DAILY 08/26/18 Clonazepam [Klonopin 1 mg Tablet] 1 mg PO QHS 08/26/18 Colchicine [Colchicine 0.6 mg Tablet] 0.6 mg PO DAILY 08/26/18 Hydrocodone/Acetaminophen [Paicines 7.5-325 mg Tablet] 1 tab PO Q8 08/26/18 Metoprolol Tartrate [Lopressor 100 mg Tablet] 100 mg PO Q12 08/26/18 Calcium Acetate [Phoslo 667 mg Capsule] 1,334 mg PO MEALS #30 capsule 09/02/18 Cholecalciferol (Vitamin D3) [Vitamin D3 1000 Unit Tablet] 2,000 unit PO DAILY tablet 09/02/18 Doxazosin Mesylate [Cardura 4 mg Tablet] 4 mg PO DAILY #30 tablet 09/02/18 Hydralazine HCl [Apresoline 50 mg Tablet] 100 mg PO Q8 #90 tablet 09/02/18 Metoprolol Tartrate [Lopressor 100 mg Tablet] 100 mg PO Q12 tablet 09/02/18 Minoxidil [Loniten 2.5 mg Tablet] 5 mg PO DAILY #60 tablet 09/02/18 Ropinirole HCl [Requip] 0.5 mg PO QHS #30 tablet 09/02/18 History of Present Illness History of Present Illness: CLARI TSAI JR is a 58 year old male patient with past medical history of hypertension, diabetes mellitus, anemia of CKD, obesity and stage IV CKD presents to [facility] ER with abnormal lab. Patient told by his primary suede cleaner Dr. Corey that his potassium is significantly high and advised him to check to ER. His blood work shows hyperkalemia with potassium of 6.8, creatinine 10.18 and GFR of 5. Patient does not have associated symptoms. His EKG shows mild peaked to the left. In ER patient has been given Veltassa, sodium bicarbonate, dextrose and regular insulin. Dr. Corey has been consulted on this patient. Hospital Course Hospital Course: ESRD -Seems this diagnosis has been current converted over from CKD stage IV per [facility] hrology. His right IJ was replaced with a PermCath in his right chest. This placement was on August 31. Medication adjustments will be made accordingly to renal function. Depression -MDD versus reactive. No medications were started given his current renal function, and recommend psychiatry evaluation for proper management. Anxiety was managed inpatient with Xanax, but on discharge was returned to [facility]. HTN -Patient has been titrated off minoxidil. He has been titrated up on doxazosin. Labetalol was also stopped. He is continued on metoprolol. His ARIANNA inhibitor was also stopped. Hydralazine was increased to 100 mg every 8 hours. Pain/ -As needed Mobic was stopped. Physical Exam Vital Signs: Temp Pulse Resp BP Pulse Ox 97.5 F 83 14 160/74 H 97 09/02/18 11:05 09/02/18 11:05 09/02/18 11:05 09/02/18 11:05 09/02/18 11:05 Intake & Output 09/01/18 09/02/18 09/03/18 06:59 06:59 06:59 Intake Total 837 320 Output Total 2650 Balance -1813 320 Weight 124.1 kg 125.4 kg General appearance: PRESENT: no acute distress, well-developed, well-nourished Head exam: PRESENT: atraumatic, normocephalic Eye exam: PRESENT: conjunctiva pink, EOMI, PERRLA. ABSENT: scleral icterus Ear exam: PRESENT: normal external ear exam Mouth exam: PRESENT: moist, tongue midline Respiratory exam: PRESENT: other - No appreciable wheeze, rhonchi, crackles. Cardiovascular exam: PRESENT: RRR, +S1, +S2 Vascular exam: PRESENT: normal capillary refill GI/Abdominal exam: PRESENT: other - Soft, nontender, nondistended, bowel sounds present Extremities exam: PRESENT: other - 1+ edema bilateral lower extremities. Right upper extremity 1+ edema. Trace edema left upper extremity. Musculoskeletal exam: PRESENT: full ROM, normal inspection Neurological exam: PRESENT: alert, awake, oriented to person, oriented to place, oriented to time, oriented to situation, CN II-XII grossly intact. ABSENT: motor sensory deficit Psychiatric exam: PRESENT: depressed, flat affect Results Laboratory Results: 09/02/18 06:30 09/02/18 06:30 09/02/18 09/02/18 06:30 06:30 WBC 7.6 RBC 2.93 L Hgb 9.2 L Hct 27.9 L MCV 95 MCH 31.4 MCHC 33.0 RDW 14.7 H Plt Count 279 Sodium 138.5 Potassium 4.8 Chloride 101 Carbon Dioxide 26 Anion Gap 12 BUN 42 H Creatinine 10.28 H Est GFR ( Amer) 6 L Est GFR (Non-Af Amer) 5 L Glucose 98 Calcium 8.3 L Impressions: Chest X-Ray 08/26/18 12:44 IMPRESSION: Interval placement of right neck large bore multi lumen vascular catheter, tip projecting near the superior cavoatrial junction. No pneumothorax or pleural effusion. Central Venous Line 09/01/18 00:00 IMPRESSION: INTRA PROCEDURAL IMAGING ABOVE . Qualifiers - * PATIENT BEING DISCHARGED WITH ANY OF THE FOLLOWING DIAGNOSIS: No VTE patient discharged on overlapping Therapy?: Yes Plan Discharge Plan: (1) Acute renal failure superimposed on chronic kidney disease Qualifiers: Acute renal failure type: unspecified Chronic kidney disease stage: on chronic dialysis Qualified Code(s): N17.9 - Acute kidney failure, unspecified; N18.9 - Chronic kidney disease, unspecified; Z99.2 - Dependence on renal dialysis Is this a current diagnosis for this admission?: Yes Plan: The patient donated a kidney to his sister. His remaining kidney has a mass. This is been present for over a year. Unfortunately his kidney has failed and the patient is now on dialysis. He received a permacath earlier this morning. I discussed the patient with Dr. Steele. The patient will receive hemodialysis tomorrow and then be discharged home. An outpatient dialysis slot is being arranged. 09/02: Follow with outpatient nephrology. No changes in last 24 hours. Status post perm cath placement (2) Hyperkalemia Is this a current diagnosis for this admission?: Yes Plan: Potassium was elevated on admission. Likely due to his change in renal status. This has resolved. 09/02: Resolved (3) Hypertension Qualifiers: Hypertension type: essential hypertension Qualified Code(s): I10 - Essential (primary) hypertension Is this a current diagnosis for this admission?: Yes Plan: The patient is on multiple medications for hypertension. These include hydralazine, doxazosin, amlodipine and metoprolol. On his current regimen he has reasonable blood pressure control. The symptoms that he describes are most likely related to medication. Hydralazine would be the most likely culprit. I suggested he review this with nephrology and be very specific about his complaints.\ 09/02: Controlled with current regimen. Continue medications. Continue nephrology recommendations. Outpatient can be titrated off minoxidil and up on doxazosin. (4) Renal mass Is this a current diagnosis for this admission?: Yes Plan: Patient has had a renal mass on the kidney for over a year. Recent imaging suggests the possibility of renal cell carcinoma. The patient will require biopsy. Because of his current renal status the patient would want to be placed on a transplant list but clearly the results of biopsy will weigh in heavily regarding his candidacy for a transplant. We did reach out to Counts include 234 beds at the [facility]. Unfortunately the urology department stated that they would not make an appointment from the hospital. They insisted that the patient visit his primary care physician and be referred. Nephrology will try and call as well. 09/02: No issues in the last 24 hours. Follow-up with your primary care physician. Follow-up with [facility] urology. (5) Depression with anxiety Is this a current diagnosis for this admission?: Yes Plan: Asked the patient if he was depressed. He initially said no. I explained that he has a very flat affect. I also reviewed symptoms of depression including poor sleep, poor concentration and attention span, decreased appetite with de pressed mood. His reports that he exhibits all of these symptoms. He admits to being very anxious and overwhelmed by his current situation. There is some fear regarding the possible biopsy results revealing a malignancy. As he already donated one kidney it is possible that if there is malignancy he may not be a candidate for transplant. There is also the possibility of metastatic disease as the patient has not been worked up as yet. We discussed the potential depressant effects of medications. It has been known to happen with some antihypertensives. We discussed starting a new medication for depression. I explained that there are several different classes of medications. I exp lained that everyone worries about side effects. There are side effects with any medication. Typically based on the symptom complex the provider chooses medication deemed effective for the patient. They typically start a very low dose and increase slowly. His kidney failure would be a consideration regarding medication and dosage. It does take time for the medication to be effective. After considering all of this the patient would be amenable to starting medication. I explained that it would be best if started by his primary care provider rather than me initiating medication and no follow-up. The patient will discuss this with his primary care provider after discharge. 09/02: Defer medication management to outpatient psychiatry. Follow-up within 1- 2 weeks of discharge. Patient and family feel safe for patient to be discharged. No harmful thoughts. (6) Restless legs syndrome (RLS) Is this a current diagnosis for this admission?: Yes Plan: The patient is on ropinirole currently. He still feels restless. See discussion above. 09/02: Continue Requip nightly. Discussed with primary care physician and/or p sychiatry. Disposition: Follow-up your primary care physician, psychiatry, nephrology, and [facility] urology on discharge. Patient is agreeable to taking medications on discharge. No concerns on discharge.
[2018-09-02 16:43] VITALS: BP 121/59
[2018-09-02] MEDS ORDERED: EPOETIN ALFA INJ 20000 UNIT/1 ML VIAL (RENAL) IV SCH (18:00)
== END 2018-09-02 17:15 | disposition home or self-care (01) | DRG 674 ==
LOC: ER 12:15 → EH 16:42 → 3S 22:28 → ICU 08-26 11:32 → 5 08-30 00:25
PROVIDERS: ADMIT Internal Medicine; ATTEND Internal Medicine
PROC: B548ZZA Ultrasonography of Superior Vena Cava, Guidance (ICD-10-PCS; 2018-08-26)
PROC: 5A1D70Z Performance of Urinary Filtration, Intermittent, Less than 6 Hours Per Day (ICD-10-PCS; 2018-08-26)
PROC: 5A1D70Z Performance of Urinary Filtration, Intermittent, Less than 6 Hours Per Day (ICD-10-PCS; 2018-08-29)
PROC: 0JH63XZ Insertion of Tunneled Vascular Access Device into Chest Subcutaneous Tissue and Fascia, Percutaneous Approach (ICD-10-PCS; principal; 2018-08-30)
PROC: 5A1D70Z Performance of Urinary Filtration, Intermittent, Less than 6 Hours Per Day (ICD-10-PCS; 2018-08-31)
PROC: 02HV33Z Insertion of Infusion Device into Superior Vena Cava, Percutaneous Approach (ICD-10-PCS; 2018-09-01)
PROC: 5A1D70Z Performance of Urinary Filtration, Intermittent, Less than 6 Hours Per Day (ICD-10-PCS; 2018-09-02)
DX: N17.9 Acute kidney failure, unspecified (principal); E87.2 Acidosis; E11.22 Type 2 diabetes mellitus with diabetic chronic kidney disease; E83.39 Other disorders of phosphorus metabolism; E87.5 Hyperkalemia; N18.4 Chronic kidney disease, stage 4 (severe); I12.9 Hypertensive chronic kidney disease with stage 1 through stage 4 chronic kidney disease, or unspecified chronic kidney disease; Z99.2 Dependence on renal dialysis; D63.1 Anemia in chronic kidney disease; E66.9 Obesity, unspecified; E78.5 Hyperlipidemia, unspecified; J44.9 Chronic obstructive pulmonary disease, unspecified; G47.30 Sleep apnea, unspecified; K21.9 Gastro-esophageal reflux disease without esophagitis; M19.042 Primary osteoarthritis, left hand; M19.041 Primary osteoarthritis, right hand; M10.9 Gout, unspecified; L30.9 Dermatitis, unspecified; F32.9 Major depressive disorder, single episode, unspecified; R00.0 Tachycardia, unspecified; R80.9 Proteinuria, unspecified; E55.9 Vitamin D deficiency, unspecified; G25.81 Restless legs syndrome; N25.81 Secondary hyperparathyroidism of renal origin; N28.89 Other specified disorders of kidney and ureter; F41.8 Other specified anxiety disorders; E86.0 Dehydration; I44.0 Atrioventricular block, first degree; I44.4 Left anterior fascicular block; R00.1 Bradycardia, unspecified; Z88.8 Allergy status to other drugs, medicaments and biological substances; Z68.39 Body mass index [BMI] 39.0-39.9, adult; Z90.5 Acquired absence of kidney; Z91.19 Patient's noncompliance with other medical treatment and regimen; Z82.49 Family history of ischemic heart disease and other diseases of the circulatory system; Z84.1 Family history of disorders of kidney and ureter; Z83.3 Family history of diabetes mellitus; Z82.5 Family history of asthma and other chronic lower respiratory diseases
CPT/HCPCS: 36415; 36558; 71045; 77001; 80048; 80053; 80069; 80074; 81001; 82607; 82728; 82746; 82803; 82962; 83540; 83550; 83735; 83970; 84100; 84165; 84443; 85025; 85027; 85045; 86317; 86704; 87340; 87493; 87522; 93005; 93010; 94640; 96361; 96365; 96374; 96375; 99284; C1752; J0360; J0610; J0690; J1644; J1756; J1815; J2250; J2405; J3010; J3490; J7030; J7060; Q4081; Q9967

== ENCOUNTER → 2018-09-13 | Day surgery (SDC) | payer BC ==
[~2018-09-13] MED LIST: ACETAMINOPHEN 0 MG/0 ML RTUPB IV ONE; BACITRACIN INJ 50,000 UNIT VIAL ONE; BUPIVACAINE HCL 0.25 % INJ/PF (2.5 MG/1 ML) 30 ML VIAL ONE; CEFAZOLIN 1 GM/D5W RTU 1 GM/50 ML RTUPB IV ONE; CEFAZOLIN 1 GM/D5W RTU 1 GM/50 ML RTUPB IV PRN; FENTANYL CITRATE INJ/PF 100 MCG/2 ML AMPUL ONE; HEPARIN SOD (PORCINE) 1,000 UNIT/ML 10 ML VIAL ONE; HYDRALAZINE HCL 50 MG TABLET PO ONE; KETAMINE HCL INJ 500 MG/10 ML VIAL ONE; LIDOCAINE 0.5% INJ-PF (5 MG/ML) 50 ML SDV ONE; LIDOCAINE 1% INJ-PF (10 MG/ML) 30 ML SDV ONE; MIDAZOLAM 2 MG/2 ML INJ ONE; NITROGLYCERIN/D5W 0 MG/0 ML RTUINJ IV ONE; PROPOFOL INJ 200 MG/20 ML VIAL IV ONE
[2018-09-13 13:45] LABS: HEMATOCRIT 30.1 % (37.9-51.0); MEAN CORPUSCULAR HEMOGLOBIN 31.2 pg (27.0-33.4); MEAN CORPUSCULAR HGB CONC 33.3 g/dL (32.0-36.0); MEAN CORPUSCULAR VOLUME 94 fl (80-97); RED BLOOD COUNT 3.22 10^6/uL (4.35-5.55); RED CELL DISTRIBUTION WIDTH 14.7 % (11.5-14.0); WHITE BLOOD COUNT 8.1 10^3/uL (4.0-10.5)
[2018-09-13 13:59] VITALS: BP 126/65
[2018-09-13 14:21] LABS: ANION GAP 8 (5-19); BLOOD UREA NITROGEN 34 mg/dL (7-20); CALCIUM 8.8 mg/dL (8.4-10.2); CARBON DIOXIDE 29 mmol/L (22-30); CHLORIDE 103 mmol/L (98-107); GLUCOSE 106 mg/dL (75-110); PLATELET COUNT 177 10^3/uL (150-450); POTASSIUM 5.7 mmol/L (3.6-5.0)
--- NOTE | 2018-09-13 14:50 | Discharge Summary ---
Discharge Summary (SDC) - Discharge Final Diagnosis: #1 end-stage renal disease on hemodialysis #2 diabetes mellitus type 2. 3. Hypertension. Date of Surgery: 09/13/18 Discharge Date: 09/13/18 Condition: Fair Treatment or Instructions: Discharge home [after recovery per ASU criteria]. Diet , [renal],as tolerated, when fully awake advance as tolerated. Activities within moderation encouraged. Follow up in my office by appointment in about [1 week]. Call for appointment. Meds per med rec. Hold of on school/work [until evaluation in office]. May shower [in 48 hrs], [try to keep operated area as dry as possible]. Referrals: EDWARD GUTIERREZ MD [Primary Care Provider] - Discharge Diet: Other (Comments) - Renal, diabetic. Respiratory Treatments at Home: Deep Breathing/Coughing Discharge Activity: Activity As Tolerated Report the Following to Your Physician Immediately: Shortness of Breath
== END ==
LOC: OROUT 12:57
PROVIDERS: ATTEND Surgery
DX: I12.0 Hypertensive chronic kidney disease with stage 5 chronic kidney disease or end stage renal disease (principal); E11.22 Type 2 diabetes mellitus with diabetic chronic kidney disease; N18.6 End stage renal disease; Z99.2 Dependence on renal dialysis
CPT/HCPCS: 36415; 85027; 80048; 87070; J3490 ×3; J0690; J1644; J0131; J2250; J2704; J3010

== ENCOUNTER 2018-10-11 05:17 | Day surgery (SDC) | payer BC ==
--- NOTE | 2018-10-06 11:56 | RADIOLOGY REPORT (SQ) ---
EXAM DESCRIPTION: CHEST PA/LATERAL COMPLETED DATE/TIME: 10/06/2018 11:23 am REASON FOR STUDY: PRE-OP COMPARISON: 08/26/2018 EXAM PARAMETERS: NUMBER OF VIEWS: two views TECHNIQUE: Digital Frontal and Lateral radiographic views of the chest acquired. RADIATION DOSE: NA LIMITATIONS: none FINDINGS: LUNGS AND PLEURA: No opacities, masses or pneumothorax. No pleural effusion. MEDIASTINUM AND HILAR STRUCTURES: No masses or contour abnormalities. HEART AND VASCULAR STRUCTURES: Heart normal size. No evidence for failure. BONES: No acute findings. HARDWARE: Dual-lumen catheter on the right. OTHER: No other significant finding. IMPRESSION: NO SIGNIFICANT RADIOGRAPHIC FINDING IN THE CHEST. TECHNICAL DOCUMENTATION: JOB ID: [id number] [employer]- All Rights Reserved Reading location - IP/workstation name: [email or web address]
[2018-10-06 12:24] LABS: INTERNATIONAL RATION (INR) 0.99; PROTHROMBIN TIME 13.6 SEC (11.4-15.4)
[2018-10-06 12:25] LABS: PARTIAL THROMBOPLASTIN TIME 65.9 SEC (23.5-35.8)
--- NOTE | 2018-10-06 12:33 | EKG REPORT ---
SEVERITY:- ABNORMAL ECG - SINUS RHYTHM NONSPECIFIC IVCD WITH LAD INFERIOR INFARCT, AGE INDETERMINATE POOR R WAVE PROGRESSION ANTERIOR PRECORDIAL LEADS : Confirmed by: Cj Busch MD 06-Oct-2018 12:33:24
[~2018-10-11 05:17] MED LIST changes: -ACETAMINOPHEN 0 MG/0 ML RTUPB IV ONE; -BACITRACIN INJ 50,000 UNIT VIAL ONE; -BUPIVACAINE HCL 0.25 % INJ/PF (2.5 MG/1 ML) 30 ML VIAL ONE; -CEFAZOLIN 1 GM/D5W RTU 1 GM/50 ML RTUPB IV ONE; -CEFAZOLIN 1 GM/D5W RTU 1 GM/50 ML RTUPB IV PRN; -FENTANYL CITRATE INJ/PF 100 MCG/2 ML AMPUL ONE; -HEPARIN SOD (PORCINE) 1,000 UNIT/ML 10 ML VIAL ONE; -HYDRALAZINE HCL 50 MG TABLET PO ONE; -KETAMINE HCL INJ 500 MG/10 ML VIAL ONE; +LACTATED RINGERS 1000 ML IV PRN; -LIDOCAINE 0.5% INJ-PF (5 MG/ML) 50 ML SDV ONE; +LIDOCAINE 0.5% INJ-PF (5 MG/ML) 50 ML SDV SUBCUT PRN; -LIDOCAINE 1% INJ-PF (10 MG/ML) 30 ML SDV ONE; -MIDAZOLAM 2 MG/2 ML INJ ONE; -NITROGLYCERIN/D5W 0 MG/0 ML RTUINJ IV ONE; -PROPOFOL INJ 200 MG/20 ML VIAL IV ONE; +VANCOMYCIN HCL 500 MG in DEXTROSE 5%-WATER 100 ML IV PRN
[2018-10-11 06:30] LABS: INTERNATIONAL RATION (INR) 0.94; PROTHROMBIN TIME 13.1 SEC (11.4-15.4)
[2018-10-11 06:31] LABS: PARTIAL THROMBOPLASTIN TIME 53.6 SEC (23.5-35.8)
[2018-10-11] MEDS ORDERED: FENTANYL CITRATE INJ/PF 100 MCG/2 ML AMPUL ONE (06:33)
[2018-10-11] MEDS ORDERED: PROPOFOL INJ 200 MG/20 ML VIAL IV ONE ×3 (06:34→09:25)
[2018-10-11] MEDS ORDERED: MIDAZOLAM 2 MG/2 ML INJ ONE (06:34)
[2018-10-11 06:51] LABS: POTASSIUM 4.5 mmol/L (3.6-5.0)
[2018-10-11] MEDS ORDERED: BUPIVACAINE HCL 0.25 % INJ/PF (2.5 MG/1 ML) 30 ML VIAL ONE (07:18)
[2018-10-11] MEDS ORDERED: BACITRACIN INJ 50,000 UNIT VIAL ONE (07:18)
[2018-10-11] MEDS ORDERED: HEPARIN SOD (PORCINE) 1,000 UNIT/ML 10 ML VIAL ONE (07:18)
[2018-10-11] MEDS ORDERED: LIDOCAINE 0.5% INJ-PF (5 MG/ML) 50 ML SDV ONE (07:18)
[2018-10-11] MEDS ORDERED: LIDOCAINE 1% INJ-PF (10 MG/ML) 30 ML SDV ONE (08:00)
[2018-10-11] MEDS ORDERED: MEPERIDINE HCL/PF INJ 25 MG/1 ML DISP.SYRIN IV PRN (08:05)
[2018-10-11] MEDS ORDERED: FENTANYL CITRATE INJ/PF 100 MCG/2 ML AMPUL IV PRN ×3 (08:05)
[2018-10-11] MEDS ORDERED: DIPHENHYDRAMINE HCL 50 MG/ML VIAL IV PRN (08:05)
[2018-10-11] MEDS ORDERED: PROMETHAZINE HCL INJ 25 MG/1 ML VIAL IV PRN ×2 (08:05)
--- NOTE | 2018-10-11 09:54 | Discharge Summary ---
Discharge Summary (SDC) - Discharge Final Diagnosis: #[address] 2. End-stage renal disease on hemodialysis. Chronic pain. 4. Restless leg syndrome. 5. COPD. 6. Diabetes. 7. Hypertension. Date of Surgery: 10/11/18 Discharge Date: 10/11/18 Condition: Fair Treatment or Instructions: Discharge home [after recovery per ASU criteria]. Diet , [renal],as tolerated, when fully awake advance as tolerated. Activities within moderation encouraged. Follow up in my office by appointment in about [1 week]. Call for appointment. Leave wounds [covered], [keep clean and dry, until office visit in 1 week]. Hold of on school/work [until evaluation in office]. Meds per med rec. Percocet. May shower [in 48 hrs], [try to keep operated area as dry as possible]. Prescriptions: Oxycodone HCl/Acetaminophen [Percocet 5-325 mg Tablet] 1 tab PO ASDIR PRN #15 tab PRN Reason: Referrals: EDWARD GUTIERREZ MD [Primary Care Provider] - Discharge Diet: Other (Comments) - Renal, diabetic. Respiratory Treatments at Home: Deep Breathing/Coughing Discharge Activity: Activity As Tolerated Report the Following to Your Physician Immediately: Shortness of Breath, Unusual Bleeding
[2018-10-11] MEDS: FENTANYL CITRATE INJ/PF 100 MCG/2 ML AMPUL ONE ×2 (10:01→10:06)
[2018-10-11] MEDS ORDERED: OXYCODONE-ACETAMINOPHEN 5-325 MG TABLET PO PRN (10:32)
[2018-10-11] MEDS ORDERED: OXYCODONE-ACETAMINOPHEN 5-325 MG TABLET ONE (10:38)
[2018-10-11] MEDS ORDERED: OXYCODONE-ACETAMINOPHEN 5-325 MG TABLET PO ONE (11:00)
[2018-10-11 12:12] VITALS: BP 138/75
[2018-10-11] MEDS ORDERED: LIDOCAINE 2% INJ-PF (20 MG/ML) 2 ML AMPUL ONE (13:39)
[2018-10-11] MEDS ORDERED: KETOROLAC TROMETHAMINE 60 MG/2 ML SDV ONE (13:40)
[2018-10-11] MEDS ORDERED: ONDANSETRON HCL INJ/PF 4 MG/2 ML SDV ONE (13:40)
[2018-10-11] MEDS ORDERED: SUCCINYLCHOLINE CHLORIDE INJ 200 MG/10 ML VIAL ONE (13:40)
[2018-10-11] MEDS ORDERED: DEXAMETHASONE SOD PHOSPHATE INJ 4 MG/1 ML VIAL ONE (13:40)
[2018-10-11] MEDS ORDERED: METOCLOPRAMIDE HCL INJ/PF 10 MG/2 ML SDV ONE (13:40)
--- NOTE | 2018-10-11 13:57 | Operative Report ---
Operative Report DATE OF SURGERY: 10/11/18 PREOPERATIVE DIAGNOSIS: #[address] 2. End-stage renal disease on hemodialysis. Chronic pain. 4. Restless leg syndrome. 5. COPD. 6. Diabetes. 7. Hypertension. POSTOPERATIVE DIAGNOSIS: #[address] 2. End-stage renal disease on hemodialysis. Chronic pain. 4. Restless leg syndrome. 5. COPD. 6. Diabetes. 7. Hypertension. OPERATION: First stage insertion of left basilic vein arteriovenous fistula. SURGEON: MARYAM HAIDER DATABASE ARCHITECT: None. ANESTHESIA: LMAC TISSUE REMOVED OR ALTERED: Not applicable. COMPLICATIONS: None. ESTIMATED BLOOD LOSS: 10 mL. INTRAOPERATIVE FINDINGS: Of satisfactory almost disease-free arteries. Of small, thick-walled veins. Medium optimism for successful dilatation. Auscultated patient at the end of the procedure demonstrates the bruit. PROCEDURE: Operative Report PROCEDURE: After reviewing the procedure with the patient, the was taken to the operating room. The patient was sedated and the left upper extremity] prepared with chlorhexidine and draped out with sterile linen. After the "" universal timeout", in which it was verified that the patient [received IV antibiotics] the procedure commenced. The sterilely sheathed ultrasound probe was used to evaluate the left upper venous and arterial systems, pertinent to the previously done vein mapping. Local anesthesia was infiltrated and a longitudinal incision made over the lower arm near the antecubital fossa. Dissection proceeded through the subcutaneous tissues down to the basilic vein. The vein was dissected out proximally and distally for about 6 cm. Progressing distally into the forearm. The veins in this patient were far medial and posterior to the artery requiring more length of vein for transposition to the more laterally placed brachial art gerald. Likewise major branches. The superficial surface of the vein was marked it was clipped distally and transposed into the arterial incision. The brachial artery dissected out for a distance of about 1.5 cm. This was through a separate incision. This was done immediately above the elbow crease. Rubber loops were placed on either end. The patient was given 2500 units of heparin intravenously. The artery was controlled proximally and distally with rubber loops. An arteriotomy approximately [1.5 cm] in length was made, the artery was irrigated proximally and distally with heparinized solution. The transected vein was now spatulated, it was then anastomosed end to end to side into the brachial artery. This was done using a continuous suture of 6-0 Prolene. Controls of the fistula were now released and it was analyzed using a Doppler probe. Hemostasis was secured once optimal function was assured, the wound was irrigated with antibiotic containing solution and closed. Closure was done using interrupted 3-0 PDS for the subcutaneous tissues. The skin was closed using a continuous subcutaneous suture of 4-0 Monocryl which was reinforced with Steri-Strips over benzoin. I then left the operative field and returned with a stethoscope covered with a sterile Tegaderm dressing. This allowed external auscultation of the fistula. Auscultation was [satisfactory]. The procedure was concluded by applying a Kerlix dressing over the surgical site. DICTATING PHYSICIAN: MARYAM MIJARES M.D.
== END 2018-10-11 11:40 | disposition home or self-care (01) ==
LOC: OROUT 05:17
PROVIDERS: ATTEND Surgery
DX: I12.0 Hypertensive chronic kidney disease with stage 5 chronic kidney disease or end stage renal disease (principal); E11.22 Type 2 diabetes mellitus with diabetic chronic kidney disease; N18.6 End stage renal disease; J44.9 Chronic obstructive pulmonary disease, unspecified; Z99.2 Dependence on renal dialysis; G89.29 Other chronic pain; G25.81 Restless legs syndrome; K21.9 Gastro-esophageal reflux disease without esophagitis; D64.9 Anemia, unspecified; G47.30 Sleep apnea, unspecified; Q60.0 Renal agenesis, unilateral; Z79.899 Other long term (current) drug therapy
CPT/HCPCS: 93005; 36415 ×2; 82947; 84132; 85610 ×2; 85730 ×2; 71046; 93010; 36819; J2250; J3490 ×4; J1100; J1885; J3010; J1644; J2765; J0330; J2405; J3370; J2704; 1844; J7060

== ENCOUNTER → 2018-11-03 | Emergency (ER) | payer BC ==
[~2018-11-03] MED LIST changes: +ALBUTEROL SULFATE 0.083% NEB 2.5 MG/3 ML AMPUL NEB ONE; +CEFAZOLIN INJ 1 GM VIAL ONE; +DEXTROSE 50%-WATER 25 GM/50 ML DISP.SYRIN IV ONE; +DIPHENHYDRAMINE HCL 50 MG/ML VIAL IV PRN; +FENTANYL CITRATE INJ/PF 100 MCG/2 ML AMPUL IV PRN; +FENTANYL CITRATE INJ/PF 100 MCG/2 ML AMPUL ONE; +INSULIN REG, HUMAN 100 UNIT/ML 3 ML VIAL (PYX) ONE; -LACTATED RINGERS 1000 ML IV PRN; -LIDOCAINE 0.5% INJ-PF (5 MG/ML) 50 ML SDV SUBCUT PRN; +LIDOCAINE 1% INJ-PF (10 MG/ML) 30 ML SDV ONE; +MEPERIDINE HCL/PF INJ 25 MG/1 ML DISP.SYRIN IV PRN; +MIDAZOLAM 2 MG/2 ML INJ ONE; +MORPHINE SULFATE 10 MG/ML INJ IV PRN; +ONDANSETRON HCL INJ/PF 4 MG/2 ML SDV IV PRN; +OXYCODONE-ACETAMINOPHEN 5-325 MG TABLET PO PRN; +PROMETHAZINE HCL INJ 25 MG/1 ML VIAL IV PRN; +PROPOFOL INJ 200 MG/20 ML VIAL IV ONE; -VANCOMYCIN HCL 500 MG in DEXTROSE 5%-WATER 100 ML IV PRN
--- NOTE | 2018-11-03 15:26 | ER Document Report ---
ED Medical Screen (RME) - General Chief Complaint: Dialysis Catheter Problem Stated Complaint: PORT CAME OUT Time Seen by Provider: 11/03/18 15:23 Primary Care Provider: EDWARD GUTIERREZ MD [Primary Care Provider] - Follow up as needed Information source: Patient Notes: Pt was shopping today and noticed that his dialysis catheter had pulled out. Patient denies any chest pain shortness of breath nausea or vomiting. Patient does report some dizziness but states that he occasionally will become dizzy. Patient is mildly hypotensive which is something he does not typically experience. Patient typically dialyzes Wednesday and has not missed dialysis. I have greeted and performed a rapid initial assessment of this patient. A comprehensive ED assessment and evaluation of the patient, analysis of test results and completion of the medical decision making process will be conducted by additional ED providers. TRAVEL OUTSIDE OF THE [place] IN LAST 30 DAYS: No - Related Data Allergies/Adverse Reactions: povidone-iodine [From Betadine] Allergy (Severe, Verified 10/06/18 10:01) Generalized rash Soap [From Betadine] Allergy (Severe, Verified 10/06/18 10:01) Generalized rash PAPER TAPE Allergy (Uncoded 10/06/18 12:10) Skin Redness Past Medical History - Social History Frequency of alcohol use: None Drug Abuse: None Family history: Reviewed & Not Pertinent - Past Medical History Cardiac Medical History: Reports: Hx Hypercholesterolemia, Hx Hypertension - ON MEDS Denies: Hx Coronary Artery Disease, Hx Heart Attack Pulmonary Medical History: Reports: Hx Asthma - OCCASIONAL, USES INHALER PRN, Hx Pneumonia - JUNE, Hx Sleep Apnea Denies: Hx Bronchitis, Hx COPD Neurological Medical History: Denies: Hx Cerebrovascular Accident, Hx Seizures Endocrine Medical History: Reports: Hx Diabetes Mellitus Type 2 Renal/ Medical History: Reports: Hx Kidney Stones - kidney disease. Denies: Hx Peritoneal Dialysis GI Medical History: Reports: Hx Gastroesophageal Reflux Disease Musculoskeltal Medical History: Reports Hx Arthritis - hands, KNEES, Reports Hx Gout Skin Medical History: Reports Hx Eczema Psychiatric Medical History: Reports: Hx Depression Past Surgical History: Reports: Hx Appendectomy, Hx Kidney (Renal Surgery) - left kidney removed, Hx Tonsillectomy, Other - bilateral cataract extraction with insertion of lens - Immunizations Immunizations up to date: Yes Hx Diphtheria, Pertussis, Tetanus Vaccination: Yes History of Influenza Vaccine for 03/2017 - 08/2017 Season: Yes Influenza Administration Date for 03/2017 - 08/2017 Season: 03/14/17 Physical Exam - Vital signs Vitals: Temp Pulse Resp BP Pulse Ox 98.2 F 75 22 H 106/52 L 98 11/03/18 15:00 11/03/18 15:00 11/03/18 15:00 11/03/18 15:00 11/03/18 15:00 - General Notes: No active bleeding from right anterior chest wall site where dialysis catheter was pulled out. Course - Re-evaluation Re-evalutation: 11/03/18 15:[address] Ludwig regarding diagnostic evaluation - Vital Signs Vital signs: Temp Pulse Resp BP Pulse Ox 98.2 F 75 22 H 106/52 L 98 11/03/18 15:00 11/03/18 15:00 11/03/18 15:00 11/03/18 15:00 11/03/18 15:00 Doctor's Discharge - Discharge Referrals: EDWARD GUTIERREZ MD [Primary Care Provider] - Follow up as needed
--- NOTE | 2018-11-03 15:44 | RADIOLOGY REPORT (SQ) ---
EXAM DESCRIPTION: CHEST 2 VIEWS COMPLETED DATE/TIME: 11/03/2018 3:36 pm REASON FOR STUDY: dialysis port pulled out, hypotensive COMPARISON: 10/06/2018 EXAM PARAMETERS: NUMBER OF VIEWS: two views TECHNIQUE: Digital Frontal and Lateral radiographic views of the chest acquired. RADIATION DOSE: NA LIMITATIONS: none FINDINGS: LUNGS AND PLEURA: No opacities, masses or pneumothorax. No pleural effusion. MEDIASTINUM AND HILAR STRUCTURES: No masses or contour abnormalities. HEART AND VASCULAR STRUCTURES: Heart normal size. No evidence for failure. BONES: No acute findings. HARDWARE: None in the chest. OTHER: Interval removal of right central line. IMPRESSION: NO ACUTE RADIOGRAPHIC FINDING IN THE CHEST. TECHNICAL DOCUMENTATION: JOB ID: [id number] [employer]- All Rights Reserved Reading location - IP/workstation name: [email or web address]
[2018-11-03 16:19] LABS: ABSOLUTE BASOPHILS # (AUTO) 0.1 10^3/uL (0.0-0.2); ABSOLUTE EOSINOPHILS # (AUTO) 0.3 10^3/uL (0.0-0.6); ABSOLUTE LYMPHOCYTES (AUTO) 2.1 10^3/uL (0.5-4.7); ABSOLUTE MONOCYTES (AUTO) 0.6 10^3/uL (0.1-1.4); ABSOLUTE NEUT (AUTO) 4.7 10^3/uL (1.7-8.2); EOSINOPHILS % (AUTO) 3.9 % (0-6); HEMATOCRIT 40.5 % (37.9-51.0); HEMOGLOBIN 13.2 g/dL (13.5-17.0); LYMPHOCYTES % (AUTO) 27.5 % (13-45); MEAN CORPUSCULAR HEMOGLOBIN 30.3 pg (27.0-33.4); MEAN CORPUSCULAR HGB CONC 32.6 g/dL (32.0-36.0); MEAN CORPUSCULAR VOLUME 93 fl (80-97); MONOCYTES % (AUTO) 7.3 % (3-13); PLATELET COUNT 189 10^3/uL (150-450); RED BLOOD COUNT 4.35 10^6/uL (4.35-5.55); RED CELL DISTRIBUTION WIDTH 14.7 % (11.5-14.0); SEGMENTED NEUTROPHILS % (AUTO) 60.3 % (42-78); TOTAL CELLS COUNTED % (AUTO) 100 %; WHITE BLOOD COUNT 7.8 10^3/uL (4.0-10.5)
[2018-11-03 16:38] LABS: ALANINE AMINOTRANSFERASE 28 U/L (21-72); ALBUMIN 4.7 g/dL (3.5-5.0); ALKALINE PHOSPHATASE 51 U/L (38-126); ANION GAP 18 (5-19); ASPARTATE AMINO TRANSFERASE 21 U/L (17-59); BILIRUBIN,DIRECT 0.4 mg/dL (0.0-0.4); BILIRUBIN,TOTAL 0.8 mg/dL (0.2-1.3); BLOOD UREA NITROGEN 59 mg/dL (7-20); CALCIUM 9.1 mg/dL (8.4-10.2); CARBON DIOXIDE 27 mmol/L (22-30); CHLORIDE 100 mmol/L (98-107); GLUCOSE 108 mg/dL (75-110); SODIUM 144.6 mmol/L (137-145); TOTAL PROTEIN 7.5 g/dL (6.3-8.2)
--- NOTE | 2018-11-03 17:21 | ER Document Report ---
ED Dialysis Cath/Shunt Problem - General Chief Complaint: Dialysis Catheter Problem Stated Complaint: PORT CAME OUT Time Seen by Provider: 11/03/18 15:23 Primary Care Provider: EDWARD GUTIERREZ MD [Primary Care Provider] - Follow up as needed Notes: 58-year-old male the emergency department chief complaint of "my permacath fell out ". Denies any other symptoms at this time. Has been getting dialysis. Has a left dialysis shunt placed on the left upper extremity however not mature yet. Denies any shortness of breath. Denies any fever. No active bleeding. TRAVEL OUTSIDE OF THE [place] IN LAST 30 DAYS: No - HPI Onset: Just prior to arrival Onset/Duration: Sudden Quality of pain: No pain Severity: None Pain Level: Denies - Related Data Allergies/Adverse Reactions: povidone-iodine [From Betadine] Allergy (Severe, Verified 11/03/18 15:31) Generalized rash Soap [From Betadine] Allergy (Severe, Verified 11/03/18 15:31) Generalized rash PAPER TAPE Allergy (Uncoded 11/03/18 15:31) Skin Redness Past Medical History - General Information source: Patient - Social History Smoking Status: Never Smoker Frequency of alcohol use: None Drug Abuse: None Lives with: Family Family History: CAD, Other - Renal failure Patient has suicidal ideation: No Patient has homicidal ideation: No - Past Medical History Cardiac Medical History: Reports: Hx Hypercholesterolemia, Hx Hypertension - ON MEDS Denies: Hx Coronary Artery Disease, Hx Heart Attack Pulmonary Medical History: Reports: Hx Asthma - OCCASIONAL, USES INHALER PRN, Hx Pneumonia - JUNE, Hx Sleep Apnea Denies: Hx Bronchitis, Hx COPD Neurological Medical History: Denies: Hx Cerebrovascular Accident, Hx Seizures Endocrine Medical History: Reports: Hx Diabetes Mellitus Type 2 Renal/ Medical History: Reports: Hx Kidney Stones - kidney disease. Denies: Hx Peritoneal Dialysis GI Medical History: Reports: Hx Gastroesophageal Reflux Disease Musculoskeletal Medical History: Reports Hx Arthritis - hands, KNEES, Reports Hx Gout Skin Medical History: Reports Hx Eczema Psychiatric Medical History: Reports: Hx Depression Past Surgical History: Reports: Hx Appendectomy, Hx Kidney (Renal Surgery) - left kidney removed, Hx Tonsillectomy, Other - bilateral cataract extraction with insertion of lens - Immunizations Immunizations up to date: Yes Hx Diphtheria, Pertussis, Tetanus Vaccination: Yes Hx Pneumococcal Vaccination: 03/14/18 Review of Systems - Review of Systems Notes: Constitutional: denies: Chills, Diaphoresis, Fever, Malaise, Weakness EENT: denies: Eye discharge, Blurred vision, Tearing, Double vision, Nose congestion, Nose discharge, Throat swelling, Mouth pain Cardiovascular: denies: Palpitations, Heart racing, Orthopnea, Dyspnea, Chest pain Respiratory: denies: Cough, Hurts to breathe, Wheezing, Shortness of breath Gastrointestinal: denies: Abdominal pain, Diarrhea, Nausea, Vomiting, Black stools, bright red blood in stool Genitourinary: denies: Burning, Dysuria, Discharge, Frequency, Flank pain, Hematuria Musculoskeletal: denies: Joint pain, Joint swelling, Muscle pain, Muscle stiffness, back pain Hematologic/Lymphatic: denies: Anemia, Easy bleeding, Easy bruising, Blood clots Neurological/Psychological: denies: Confusion, Dementia, Depression, Loss of consciousness Skin: No lesions, no masses, no skin breakdown, no abscesses Physical Exam - Vital signs Vitals: Temp Pulse Resp BP Pulse Ox 98.2 F 75 22 H 106/52 L 98 11/03/18 15:00 11/03/18 15:00 11/03/18 15:00 11/03/18 15:00 11/03/18 15:00 Interpretation: Normal - General General appearance: Appears well, Alert - HEENT Head: Normocephalic, Atraumatic Eyes: Normal Pupils: PERRL - Respiratory Respiratory status: No respiratory distress Chest status: Nontender Breath sounds: Normal Chest palpation: Normal - Cardiovascular Rhythm: Regular Heart sounds: Normal auscultation Murmur: No - Abdominal Inspection: Normal Distension: No distension Bowel sounds: Normal Tenderness: Nontender Organomegaly: No organomegaly - Back Back: Normal, Nontender - Extremities General upper extremity: Normal inspection, Nontender, Normal color, Normal ROM, Normal temperature General lower extremity: Normal inspection, Nontender, Normal color, Normal ROM, Normal temperature, Normal weight bearing. No: Katelyn's sign - Neurological Neuro grossly intact: Yes Cognition: Normal Orientation: AAOx4 Iggy Coma Scale Eye Opening: Spontaneous Iggy Coma Scale Verbal: Oriented Iggy Coma Scale Motor: Obeys Commands [place] Coma Scale Total: 15 Speech: Normal Motor strength normal: LUE, RUE, LLE, RLE Sensory: Normal - Psychological Associated symptoms: Normal affect, Normal mood - Skin Skin Temperature: Warm Skin Moisture: Dry Skin Color: Normal Course - Re-evaluation Re-evalutation: 11/03/18 17:20 Laboratory 11/03/18 11/03/18 11/03/18 15:45 15:45 15:45 WBC 7.8 RBC 4.35 Hgb 13.2 L Hct 40.5 MCV 93 MCH 30.3 MCHC 32.6 RDW 14.7 H Plt Count 189 Seg Neutrophils % 60.3 Lymphocytes % 27.5 Monocytes % 7.3 Eosinophils % 3.9 Basophils % 1.0 Absolute Neutrophils 4.7 Absolute Lymphocytes 2.1 Absolute Monocytes 0.6 Absolute Eosinophils 0.3 Absolute Basophils 0.1 Sodium 144.6 Potassium 6.0 H* Chloride 100 Carbon Dioxide 27 Anion Gap 18 BUN 59 H Creatinine 8.29 H Est GFR ( Amer) 8 L Est GFR (Non-Af Amer) 7 L Glucose 108 Calcium 9.1 Magnesium 2.0 Total Bilirubin 0.8 Direct Bilirubin 0.4 Neonat Total Bilirubin Not Reportable Neonat Direct Bilirubin Not Reportable Neonat Indirect Bili Not Reportable AST 21 ALT 28 Alkaline Phosphatase 51 Troponin I < 0.012 Total Protein 7.5 Albumin 4.7 11/03/18 17:21 Chest X-Ray 11/03/18 15:24 IMPRESSION: NO ACUTE RADIOGRAPHIC FINDING IN THE CHEST. 11/03/18 17:21 Will consult with surgeon for possible PermCath placement. Dr. Hodges consulted at 1720. 11/03/18 17:49 Dr. Hodges is here. Will take the patient to the OR for the PermCath placement. Nothing further. Patient is n.p.o. Stable for OR transport. - Vital Signs Vital signs: Temp Pulse Resp BP Pulse Ox 98.2 F 75 16 110/68 98 11/03/18 15:00 11/03/18 15:00 11/03/18 17:13 11/03/18 17:13 11/03/18 17:22 - Laboratory Result Diagrams: 11/03/18 15:45 11/03/18 15:45 Laboratory results interpreted by me: 11/03/18 11/03/18 11/03/18 15:45 15:45 15:45 Hgb 13.2 L RDW 14.7 H APTT 60.9 H Potassium 6.0 H* BUN 59 H Creatinine 8.29 H Est GFR ( Amer) 8 L Est GFR (Non-Af Amer) 7 L Discharge - Discharge Clinical Impression: Complications, dialysis, catheter, mechanical Qualifiers: Encounter type: initial encounter Qualified Code(s): T82.49XA - Other complication of vascular dialysis catheter, initial encounter Condition: Good Disposition: OTHER Referrals: EDWARD GUTIERREZ MD [Primary Care Provider] - Follow up as needed
[2018-11-03 17:34] LABS: INTERNATIONAL RATION (INR) 0.95; PROTHROMBIN TIME 13.2 SEC (11.4-15.4)
[2018-11-03 17:36] LABS: PARTIAL THROMBOPLASTIN TIME 60.9 SEC (23.5-35.8)
--- NOTE | 2018-11-03 17:43 | EKG REPORT ---
SEVERITY:- ABNORMAL ECG - SINUS RHYTHM LAD, CONSIDER LAFB OR INFERIOR INFARCT : Confirmed by: Genoveva Whalen 03-Nov-2018 17:42:25
--- NOTE | 2018-11-03 22:29 | OPERATIVE REPORT E ---
Operative Report NAME: CLARI TSAI JR : 1960 AGE: 58Y DATE OF SURGERY: 11/03/2018 ROOM: ED07 PREOPERATIVE DIAGNOSIS: PULLED OUT PERMA-CATHETER AND PATIENT ON HEMODIALYSIS. POSTOPERATIVE DIAGNOSIS: PULLED OUT PERMA-CATHETER AND PATIENT ON HEMODIALYSIS. OPERATION: Placement of new Perma-catheter on the left neck internal jugular vein area. SURGEON: YAHAIRA GOSS M.D. ANESTHESIA: Local, MAC. INDICATIONS: This is a 58-year-old male on hemodialysis. He had a Perma-cath placed on the right jugular vein area and somehow this was accidentally pulled out today. Patient is due for hemodialysis tomorrow. PROCEDURE: After adequate IV sedation, the left neck area was then prepped and draped in the usual sterile fashion. The left upper chest also was prepped. Next, with the help of ultrasound, the left internal jugular vein was then identified and local anesthesia infiltrated on the skin. The skin was then punctured and the internal jugular vein entered. Blood was aspirated, nonpulsatile dark blood. Guidewire was then placed through the needle into the superior vena cava. With the use of fluoroscopy, the guidewire noted to be going down into the right atrial area. Next, the puncture site was then enlarged with the 11 blade and also dilated with a hemostat. Next, local anesthesia infiltrated just below the left clavicle, below the first rib, and this was anesthetized and the tract also anesthetized with 1% Xylocaine. About a 5 to 6 mm incision was then made and a 32 cm Perma-cath was then threaded up from the chest incision towards the neck incision. The catheter was then pulled out of the neck incision, leaving the web part of the catheter inside the tunnel. Next, the internal jugular vein was then dilated with the use of 2 dilators. Next, the catheter housing was then threaded through the guidewire towards the superior vena cava. The guidewire was then pulled out and the tip of the Perma-cath inserted towards the inside of the housing, and the housing was subsequently split while threading the catheter all the way down towards the right atrium area. This was done under fluoroscopy guidance. Next the housing was then split and pulled out. The catheter was attempted to be irrigated, but one of the port sites was difficult to inject. Therefore, with the use of fluoroscopy, there appeared to be a kink right at the incision site and internal jugular vein. This was then dilated and the subcutaneous area divided with the use of cautery. The *------* was pulled up far from the catheter while dividing the tissues. Following this, the catheter was easily aspirated blood in both ports and injected saline easily. This was then irrigated with 2.5 mL of 10% heparin on each port. On the final fluoroscopy, there appeared to be a straightening along the neck area, without any kink. The tip of the catheter appears to be right in the right atrium. Next, the skin at the neck area was then closed with subcuticular 3-0 Vicryl undyed. The catheter at the chest insertion site skin was then partially closed with the same 3-0 Vicryl. The catheter was then anchored to the skin on the hub with 2 sutures of 2-0 nylon. Sterile dressing was placed over the operative site. Needle, instrument and sponge counts were all correct. Estimated blood loss was no more than 15 mL. Patient brought to the recovery room in satisfactory condition. DICTATING PHYSICIAN: YAHAIRA GOSS M.D. [id number] PHY#: [id number] ID: [id number] JOB#: [id number] ACCT: [id number] cc:YAHAIRA GOSS M.D. >
[2018-11-03 23:05] VITALS: BP 126/52
--- NOTE | 2018-11-04 08:50 | RADIOLOGY REPORT (SQ) ---
EXAM DESCRIPTION: FLUORO/CV PLACEMENT; CHEST SINGLE VIEW COMPLETED DATE/TIME: 11/03/2018 8:30 pm REASON FOR STUDY: LT SIDED PERM CATH COMPARISON: None. FLUOROSCOPY TIME: 0.4 minutes Spot images saved to PACS. TECHNIQUE: Intra-operative images acquired during surgical procedure to evaluate progress. NUMBER OF IMAGES: 2 LIMITATIONS: None. FINDINGS: Fluoroscopy was provided for intraoperative procedure. Please refer to the operative repo rt for further discussion. IMPRESSION: IMAGE(S) OBTAINED DURING PROCEDURE. COMMENT: Quality ID [id number]: Final reports for procedures using fluoroscopy that document radiation exp osure indices, or exposure time and number of fluorographic images (if radiation exposure indices are not available) Please consult full operative report of the attending physician for description of the procedure. TECHNICAL DOCUMENTATION: JOB ID: [id number] [employer]- All Rights Reserved Reading location - IP/workstation name: [email or web address]
--- NOTE | 2018-11-04 08:50 | RADIOLOGY REPORT (SQ) ---
EXAM DESCRIPTION: FLUORO/CV PLACEMENT; CHEST SINGLE VIEW COMPLETED DATE/TIME: 11/03/2018 8:30 pm REASON FOR STUDY: LT SIDED PERM CATH COMPARISON: None. FLUOROSCOPY TIME: 0.4 minutes Spot images saved to PACS. TECHNIQUE: Intra-operative images acquired during surgical procedure to evaluate progress. NUMBER OF IMAGES: 2 LIMITATIONS: None. FINDINGS: Fluoroscopy was provided for intraoperative procedure. Please refer to the operative repo rt for further discussion. IMPRESSION: IMAGE(S) OBTAINED DURING PROCEDURE. COMMENT: Quality ID [id number]: Final reports for procedures using fluoroscopy that document radiation exp osure indices, or exposure time and number of fluorographic images (if radiation exposure indices are not available) Please consult full operative report of the attending physician for description of the procedure. TECHNICAL DOCUMENTATION: JOB ID: [id number] [employer]- All Rights Reserved Reading location - IP/workstation name: [email or web address]
== END | disposition other institution (70) ==
LOC: ER 14:44 → UNDOADMIN 18:50 → EH 18:50
DX: T82.49XA Other complication of vascular dialysis catheter, initial encounter (principal); Y84.1 Kidney dialysis as the cause of abnormal reaction of the patient, or of later complication, without mention of misadventure at the time of the procedure; R42 Dizziness and giddiness; I95.9 Hypotension, unspecified; Z99.2 Dependence on renal dialysis; E78.00 Pure hypercholesterolemia, unspecified; I10 Essential (primary) hypertension; E11.9 Type 2 diabetes mellitus without complications; Z87.442 Personal history of urinary calculi
CPT/HCPCS: 93005; 99285; 36415; 87040; 82962; 83735; 85025; 85610; 85730; 80053; 84484; 71046; 71045; 77001; 93010; 36558; Q9967; J2250; J0690; J3490 ×2; J3010; J1815; J2704; J1642; 532

== ENCOUNTER 2018-11-15 10:13 | Observation (INO) | payer BC ==
[~2018-11-15 10:13] MED LIST changes: -ALBUTEROL SULFATE 0.083% NEB 2.5 MG/3 ML AMPUL NEB ONE; -CEFAZOLIN INJ 1 GM VIAL ONE; -DEXTROSE 50%-WATER 25 GM/50 ML DISP.SYRIN IV ONE; -DIPHENHYDRAMINE HCL 50 MG/ML VIAL IV PRN; -FENTANYL CITRATE INJ/PF 100 MCG/2 ML AMPUL IV PRN; -FENTANYL CITRATE INJ/PF 100 MCG/2 ML AMPUL ONE; -INSULIN REG, HUMAN 100 UNIT/ML 3 ML VIAL (PYX) ONE; -LIDOCAINE 1% INJ-PF (10 MG/ML) 30 ML SDV ONE; -MEPERIDINE HCL/PF INJ 25 MG/1 ML DISP.SYRIN IV PRN; -MIDAZOLAM 2 MG/2 ML INJ ONE; -MORPHINE SULFATE 10 MG/ML INJ IV PRN; -ONDANSETRON HCL INJ/PF 4 MG/2 ML SDV IV PRN; -OXYCODONE-ACETAMINOPHEN 5-325 MG TABLET PO PRN; -PROMETHAZINE HCL INJ 25 MG/1 ML VIAL IV PRN; -PROPOFOL INJ 200 MG/20 ML VIAL IV ONE; +VANCOMYCIN HCL 500 MG in DEXTROSE 5%-WATER 100 ML IV PRN
[2018-11-15] MEDS ORDERED: LIDOCAINE 0.5% INJ-PF (5 MG/ML) 50 ML SDV ONE (10:50)
[2018-11-15] MEDS ORDERED: HEPARIN SOD (PORCINE) 1,000 UNIT/ML 10 ML VIAL ONE (10:50)
[2018-11-15] MEDS ORDERED: BACITRACIN INJ 50,000 UNIT VIAL ONE (10:50)
[2018-11-15] MEDS ORDERED: BUPIVACAINE HCL 0.25 % INJ/PF (2.5 MG/1 ML) 30 ML VIAL ONE (10:50)
[2018-11-15] MEDS ORDERED: LIDOCAINE 1% INJ-PF (10 MG/ML) 30 ML SDV ONE (10:50)
[2018-11-15 13:15] LABS: ABSOLUTE BASOPHILS # (AUTO) 0.1 10^3/uL (0.0-0.2); ABSOLUTE EOSINOPHILS # (AUTO) 0.3 10^3/uL (0.0-0.6); ABSOLUTE LYMPHOCYTES (AUTO) 2.1 10^3/uL (0.5-4.7); ABSOLUTE MONOCYTES (AUTO) 0.5 10^3/uL (0.1-1.4); ABSOLUTE NEUT (AUTO) 3.9 10^3/uL (1.7-8.2); EOSINOPHILS % (AUTO) 4.1 % (0-6); HEMATOCRIT 38.2 % (37.9-51.0); HEMOGLOBIN 12.8 g/dL (13.5-17.0); LYMPHOCYTES % (AUTO) 30.6 % (13-45); MEAN CORPUSCULAR HEMOGLOBIN 30.4 pg (27.0-33.4); MEAN CORPUSCULAR HGB CONC 33.5 g/dL (32.0-36.0); MEAN CORPUSCULAR VOLUME 91 fl (80-97); MONOCYTES % (AUTO) 6.9 % (3-13); PLATELET COUNT 171 10^3/uL (150-450); RED BLOOD COUNT 4.22 10^6/uL (4.35-5.55); RED CELL DISTRIBUTION WIDTH 13.9 % (11.5-14.0); SEGMENTED NEUTROPHILS % (AUTO) 57.4 % (42-78); TOTAL CELLS COUNTED % (AUTO) 100 %; WHITE BLOOD COUNT 6.8 10^3/uL (4.0-10.5)
[2018-11-15 13:34] LABS: ANION GAP 16 (5-19); BLOOD UREA NITROGEN 64 mg/dL (7-20); CALCIUM 9.1 mg/dL (8.4-10.2); CARBON DIOXIDE 27 mmol/L (22-30); CHLORIDE 100 mmol/L (98-107); GLUCOSE 116 mg/dL (75-110); SODIUM 142.7 mmol/L (137-145)
[2018-11-15 13:37] LABS: POTASSIUM 6.6 mmol/L (3.6-5.0)
[2018-11-15] MEDS ORDERED: HEPARIN SOD (PORCINE) 1,000 UNIT/ML 10 ML VIAL IV PRN (16:03)
--- NOTE | 2018-11-15 20:23 | PDOC CONSULTATION ---
Consultation Consult Date: 11/15/18 Provider Consulted: EDWARD GUTIERREZ Consult reason:: I was asked to see the patient due to hyperkalemia requiring urgent hemodialysis. 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 Perla when he was found to have an elevated potassium was 6.6. Dr. Perla had to cancel the procedure and subsequently call me for further management. Patient however is asymptomatic and actually feels fine. He denies any chest pain, shortness of breath or any palpitations. He actually completed his dialysis treatment yesterday. So immediately arrange for urgent hemodialysis treatment due to the hyperkalemia. I then see the patient during dialysis treatment this afternoon. He was doing well and has no complaints at all. We discussed his diet and admits that he is eating some sweet potato. He was tolerating dialysis when I saw him this afternoon. Past Medical History Cardiac Medical History: Reports: Hyperlipidemia, Hypertension-primary Pulmonary Medical History: Reports: Asthma - OCCASIONAL, USES INHALER PRN, Chronic Obstructive Pulmonary Disease (COPD), Pneumonia - JUNE, Sleep Apnea Endocrine Medical History: Reports: Diabetes Mellitus Type 2 Complications of Diabetes: Reports: Nephropathy Renal/ Medical History: Reports: End Stage Renal Disease, Proteinuria, Solitary kidney, Other - Left kidney donated to sister, right renal mass GI Medical History: Reports: Gastroesophageal Reflux Disease Musculoskeltal Medical History: Reports: Arthritis - hands, KNEES, Gout Skin Medical History: Reports: Eczema Psychiatric Medical History: Reports: Depression Hematology Medical History: Reports Anemia of Chronic Kidney Disease Past Surgical History Past Surgical History: Reports: Appendectomy, Nephrectomy - Left donated to his sister, Tonsillectomy, Vascular Surgery - PermCath placement for dialysis, Other - bilateral cataract extraction with insertion of lens Social History Information Source: Patient Lives with: Family Smoking Status: Former Smoker Frequency of Alcohol Use: None Hx Recreational Drug Use: No Drugs: None Hx Prescription Drug Abuse: No Family History Family History: CAD - Father, DM - Sister and maternal grandfather, End Stage Renal Disease - Sister, Hypertension - Mother, Malignancy - Breast cancer on his mother Parental Family History Reviewed: Yes Children Family History Reviewed: Yes Sibling(s) Family History Reviewed.: Yes Medication/Allergy Home Medications: Amlodipine Besylate [Norvasc 10 mg Tablet] 10 mg PO DAILY 08/26/18 Calcium Acetate [Phoslo 667 mg Capsule] 1,334 mg PO MEALS #30 capsule 09/02/18 Doxazosin Mesylate [Cardura 4 mg Tablet] 4 mg PO DAILY #30 tablet 09/02/18 Metoprolol Tartrate [Lopressor 100 mg Tablet] 100 mg PO Q12 tablet 09/02/18 Ropinirole HCl [Requip] 0.5 mg PO QHS #30 tablet 09/02/18 Insulin Aspart [Novolog Insulin (Aspart) 100 unit/mL] 25 unit SUBCUT ACBRKFST PRN 10/06/18 Minoxidil [Loniten 2.5 mg Tablet] 5 mg PO DAILY 10/06/18 Colestipol HCl [Colestid 1 gm Tablet] 2 gm PO QPM 11/03/18 Gabapentin [Neurontin 100 mg Capsule] 100 mg PO Q8 11/03/18 Hydroxyzine HCl [Atarax 25 mg Tablet] 12.5 mg PO Q8HP PRN 11/03/18 Allergies/Adverse Reactions: povidone-iodine [From Betadine] Allergy (Severe, Verified 11/03/18 15:31) Generalized rash Soap [From Betadine] Allergy (Severe, Verified 11/03/18 15:31) Generalized rash PAPER TAPE Allergy (Uncoded 11/03/18 15:31) Skin Redness Review of Systems All systems: reviewed and no additional remarkable complaints except as stated Review of Systems: Constitutional: ABSENT: chills, fatigue, fever(s), headache(s), weight gain, weight loss Eyes: ABSENT: visual disturbances Ears: ABSENT: hearing changes Cardiovascular: ABSENT: chest pain, dyspnea on exertion, edema, orthropnea, palpitations Respiratory: ABSENT: cough, dyspnea, hemoptysis Gastrointestinal: ABSENT: abdominal pain, constipation, diarrhea, hematemesis, hematochezia, nausea, vomiting Genitourinary: ABSENT: dysuria, hematuria Musculoskeletal: ABSENT: joint swelling Integumentary: ABSENT: rash, wounds Neurological: ABSENT: abnormal gait, abnormal speech, confusion, dizziness, focal weakness, numbness, syncope Psychiatric: ABSENT: anxiety, depression Endocrine: ABSENT: cold intolerance, heat intolerance, polydipsia, polyuria Hematologic/Lymphatic: ABSENT: easy bleeding, easy bruising, lymphadenopathy Physical Exam Vital Signs: Temp Pulse Resp BP Pulse Ox 97.6 F 66 16 106/66 100 11/15/18 11:15 11/15/18 11:15 11/15/18 11:15 11/15/18 11:15 11/15/18 11:15 Intake & Output 11/14/18 11/15/18 11/16/18 06:59 06:59 06:59 Intake Total 0 Balance 0 Weight 118.2 kg 118.2 kg Vitals during dialysis: Blood pressure 121/65, heart rate of 72, blood flow rate of 350 mL/min, and dialysate flow rate of 800 mL/min. Exam: General appearance: No acute distress, cooperative, well-developed, well- nourished Head exam: PRESENT: atraumatic, normocephalic Eye exam: PRESENT: Conjunctiva [place], EOMI, PERRLA. ABSENT: conjunctival injection, scleral icterus Mouth exam: PRESENT: moist, neck supple, tongue midline Neck exam: PRESENT: full ROM. ABSENT: carotid bruit, JVD, lymphadenopathy, thyromegaly Respiratory exam: PRESENT: clear to auscultation bilaterally. ABSENT: rales, rhonchi, stridor, wheezes Cardiovascular exam: PRESENT: RRR, +S1, +S2. ABSENT: systolic murmur Pulses: PRESENT: normal radial pulses, normal dorsalis pedis pulses GI/Abdominal exam: PRESENT: normal bowel sounds, soft. ABSENT: guarding, mass, tenderness Rectal exam: Deferred Extremities exam: PRESENT: full ROM. ABSENT: calf tenderness, pedal edema Musculoskeletal: PRESENT: full ROM. ABSENT: deformity Neurological exam: PRESENT: alert, Awake, Oriented to person, Oriented to place, Oriented to time, reflexes normal, CN II-XII grossly intact. ABSENT: motor sensory deficit Psychiatric exam: PRESENT: appropriate affect, normal mood. ABSENT: homicidal ideation, suicidal ideation Skin exam: PRESENT: intact, dry, warm. ABSENT: rash Results Laboratory Results: 11/15/18 12:59 11/15/18 12:59 11/15/18 11/15/18 12:59 12:59 WBC 6.8 RBC 4.22 L Hgb 12.8 L Hct 38.2 MCV 91 MCH 30.4 MCHC 33.5 RDW 13.9 Plt Count 171 Seg Neutrophils % 57.4 Lymphocytes % 30.6 Monocytes % 6.9 Eosinophils % 4.1 Basophils % 1.0 Absolute Neutrophils 3.9 Absolute Lymphocytes 2.1 Absolute Monocytes 0.5 Absolute Eosinophils 0.3 Absolute Basophils 0.1 Sodium 142.7 Potassium 6.6 H* Chloride 100 Carbon Dioxide 27 Anion Gap 16 BUN 64 H Creatinine 8.29 H Est GFR ( Amer) 8 L Est GFR (Non-Af Amer) 7 L Glucose 116 H Calcium 9.1 Assessment & Plan - Diagnosis (1) Hyperkalemia Is this a current diagnosis for this admission?: Yes Plan: Patient is urgent hemodialysis treatment today. (2) End-stage renal disease on hemodialysis Is this a current diagnosis for this admission?: Yes Plan: We did dialysis today for 2.5 hours, using the patient's PermCath, with 1 potassium bath for 1 hour followed by 2 potassium bath, blood flow rate of 350 mL per minute, dialysate flow rate of 800 mL per minute, ultrafiltration 1 to 1.5 L as tolerated, no heparin and no Procrit today. Treatment plan discussed with her dialysis nurse and patient was monitored throughout dialysis treatment. Patient was admitted today for observation due to hyperkalemia. The plan is for patient to be discharged hand booked folder and stitcher tomorrow so patient can still proceed to [facility] for his regular scheduled dialysis treatment at 10:30 AM so he needs to be discharged at least couple of hours before that so he can make it on time. Discussed this with Dr. Perla. (3) Anemia in chronic kidney disease (CKD) Qualifiers: Chronic kidney disease stage: stage 3 (moderate) Qualified Code(s): N18.3 - Chronic kidney disease, stage 3 (moderate); D63.1 - Anemia in chronic kidney disease Is this a current diagnosis for this admission?: Yes (4) Diabetes mellitus type 2 in obese Is this a current diagnosis for this admission?: Yes (5) Hypertension Is this a current diagnosis for this admission?: Yes - Notes Notes: Thank you very much for this consultation. Plan discussed with Dr. Perla. - Time Time Spent: 30 to 50 Minutes
[2018-11-15] MEDS ORDERED: METOPROLOL TARTRATE 100 MG TABLET PO SCH (22:15)
[2018-11-15] MEDS ORDERED: HYDROXYZINE HCL 10 MG TABLET PO PRN (22:21)
[2018-11-15] MEDS ORDERED: GLUCAGON,HUMAN RECOMB 1 MG INJ IM PRN (22:30)
[2018-11-15] MEDS ORDERED: DEXTROSE 50%-WATER SYRINGE 25 GM/50 ML DOSE IV PRN (22:30)
[2018-11-15] MEDS ORDERED: DEXTROSE 40% GEL 15 GM TUBE PO PRN (22:30)
[2018-11-15] MEDS ORDERED: ROPINIROLE HCL 0.25 MG TABLET PO SCH (22:30)
[2018-11-15] MEDS ORDERED: DEXTROSE 50%-WATER SYRINGE 12.5 GM/25 ML DOSE IV PRN (22:30)
[2018-11-15] MEDS ORDERED: DEXTROSE 40% GEL 15 GM TUBE X 2 PO PRN (22:30)
[2018-11-15] MEDS: INSULIN LISPRO 100 UNIT/ML 3 ML VIAL SUBCUT SCH (22:51)
[2018-11-16] MEDS ORDERED: GABAPENTIN 100 MG CAPSULE PO SCH (06:00)
[2018-11-16 07:50] VITALS: BP 110/60
[2018-11-16] MEDS: INSULIN LISPRO 100 UNIT/ML 3 ML VIAL SUBCUT SCH (07:58)
[2018-11-16] MEDS ORDERED: CALCIUM ACETATE 667 MG CAPSULE PO SCH (08:00)
[2018-11-16] MEDS ORDERED: INSULIN ASPART 25 UNIT SUBCUT SCH ×8 (08:00→10:00)
[2018-11-16] MEDS ORDERED: MINOXIDIL 2.5 MG TABLET PO SCH (10:00)
[2018-11-16] MEDS ORDERED: DOXAZOSIN MESYLATE 4 MG TABLET PO SCH (10:00)
[2018-11-16] MEDS ORDERED: AMLODIPINE BESYLATE 10 MG TABLET PO SCH (10:00)
[2018-11-16] MEDS ORDERED: (PENDING PHARMACY ID) (Colestipol Hcl [Colestid 1 Gm Tablet] 2 GM) PO SCH ×8 (18:00)
--- NOTE | 2018-11-22 14:14 | Discharge Summary ---
Discharge Summary (SDC) - Discharge Final Diagnosis: #[address] 2. Left arm AV fistula transposed basilic. 3. End-stage renal disease on hemodialysis. 4. History of MRSA infection. 5. Chronic pain. 6. COPD. 7. Diabetes mellitus type 2. 8. Hypertension. Date of Surgery: 11/22/18 Condition: Fair Forms: Discharge POC-Adult Treatment or Instructions: Discharge home [after recovery per ASU criteria]. Diet , [renal],as tolerated, when fully awake advance as tolerated. Activities within moderation encouraged. Follow up in my office by appointment in about [1 week]. Call for appointment. Empty drain as instructed.. Leave wounds [covered], [keep clean and dry, until office visit in 1 week]. Hold of on school/work [until evaluation in office]. Meds per med rec. Percocet. May shower [in 48 hrs], [try to keep operated area as dry as possible]. Prescriptions: Oxycodone HCl/Acetaminophen [Percocet 5-325 mg Tablet] 1 tab PO ASDIR PRN #15 tab PRN Reason: Referrals: EDWARD GUTIERREZ MD [Primary Care Provider] - 11/16/18 (FOLLOW UP WILL BE TODAY AT DIALYSIS.) Discharge Diet: Other (Comments) - Renal, diabetic Respiratory Treatments at Home: Deep Breathing/Coughing Discharge Activity: Activity As Tolerated, Balance Activity w/Rest Home Care Assistance: None Needed Report the Following to Your Physician Immediately: Shortness of Breath, Unusual Bleeding, Redness, Swelling, Warmth, Increased Soreness
== END 2018-11-16 09:40 | disposition home or self-care (01) ==
LOC: OROUT 10:13 → 4N 18:33 → INOR 19:32 → OROUT 11-16 09:40 → INOR 11-16 09:40 → UNDOADMOB 11-16 09:40 → UNDODISOB 11-16 09:40
PROVIDERS: ADMIT Surgery; ATTEND Surgery
PROC: 5A1D70Z Performance of Urinary Filtration, Intermittent, Less than 6 Hours Per Day (ICD-10-PCS; principal; 2018-11-15)
DX: E87.5 Hyperkalemia (principal); Z53.09 Procedure and treatment not carried out because of other contraindication; N18.6 End stage renal disease; Z99.2 Dependence on renal dialysis; E11.22 Type 2 diabetes mellitus with diabetic chronic kidney disease; E11.21 Type 2 diabetes mellitus with diabetic nephropathy; I12.0 Hypertensive chronic kidney disease with stage 5 chronic kidney disease or end stage renal disease; G89.29 Other chronic pain; J44.9 Chronic obstructive pulmonary disease, unspecified; D63.1 Anemia in chronic kidney disease; N28.89 Other specified disorders of kidney and ureter; E66.9 Obesity, unspecified; F40.240 Claustrophobia; F32.9 Major depressive disorder, single episode, unspecified; Z86.14 Personal history of Methicillin resistant Staphylococcus aureus infection; Z90.5 Acquired absence of kidney; Z90.49 Acquired absence of other specified parts of digestive tract; Z87.891 Personal history of nicotine dependence; Z84.1 Family history of disorders of kidney and ureter; Z79.899 Other long term (current) drug therapy; Z79.4 Long term (current) use of insulin; Z95.828 Presence of other vascular implants and grafts
CPT/HCPCS: 36415; 82962 ×2; 85025; 80048; G0257; G0379; G0378 ×2; J1815; J3370; J7060; J1644; J3490

== ENCOUNTER 2018-11-22 07:47 | Day surgery (SDC) | payer BC ==
[2018-11-22] MEDS ORDERED: VANCOMYCIN HCL 500 MG in DEXTROSE 5%-WATER 100 ML IV PRN (08:23)
[2018-11-22 08:35] LABS: HEMATOCRIT 39.1 % (37.9-51.0); HEMOGLOBIN 13.2 g/dL (13.5-17.0); MEAN CORPUSCULAR HEMOGLOBIN 30.2 pg (27.0-33.4); MEAN CORPUSCULAR HGB CONC 33.7 g/dL (32.0-36.0); MEAN CORPUSCULAR VOLUME 90 fl (80-97); PLATELET COUNT 189 10^3/uL (150-450); RED BLOOD COUNT 4.35 10^6/uL (4.35-5.55); RED CELL DISTRIBUTION WIDTH 14.1 % (11.5-14.0); WHITE BLOOD COUNT 8.1 10^3/uL (4.0-10.5)
[2018-11-22] MEDS ORDERED: ALBUTEROL SULFATE 0.083% NEB 2.5 MG/3 ML AMPUL NEB ONE (08:49)
[2018-11-22 08:56] LABS: ANION GAP 19 (5-19); BLOOD UREA NITROGEN 56 mg/dL (7-20); CALCIUM 9.2 mg/dL (8.4-10.2); CARBON DIOXIDE 25 mmol/L (22-30); CHLORIDE 100 mmol/L (98-107); GLUCOSE 147 mg/dL (75-110); POTASSIUM 4.6 mmol/L (3.6-5.0); SODIUM 143.7 mmol/L (137-145)
[2018-11-22] MEDS ORDERED: KETAMINE HCL INJ 500 MG/10 ML VIAL ONE (10:50)
[2018-11-22] MEDS ORDERED: PROPOFOL INJ 200 MG/20 ML VIAL IV ONE ×3 (10:51→14:27)
[2018-11-22] MEDS ORDERED: MIDAZOLAM 2 MG/2 ML INJ ONE (10:51)
[2018-11-22] MEDS ORDERED: FENTANYL CITRATE INJ/PF 100 MCG/2 ML AMPUL ONE ×2 (10:51→14:36)
[2018-11-22] MEDS ORDERED: HEPARIN SOD (PORCINE) 1,000 UNIT/ML 10 ML VIAL ONE (10:57)
[2018-11-22] MEDS ORDERED: LIDOCAINE 0.5% INJ-PF (5 MG/ML) 50 ML SDV ONE (10:57)
[2018-11-22] MEDS ORDERED: BUPIVACAINE HCL 0.25 % INJ/PF (2.5 MG/1 ML) 30 ML VIAL ONE (10:57)
[2018-11-22] MEDS ORDERED: BACITRACIN INJ 50,000 UNIT VIAL ONE (10:57)
[2018-11-22] MEDS ORDERED: LIDOCAINE 1% INJ-PF (10 MG/ML) 30 ML SDV ONE (10:57)
[2018-11-22] MEDS ORDERED: METOCLOPRAMIDE HCL INJ/PF 10 MG/2 ML SDV ONE (12:15)
[2018-11-22] MEDS ORDERED: ONDANSETRON HCL INJ/PF 4 MG/2 ML SDV ONE (12:15)
[2018-11-22] MEDS ORDERED: GLYCOPYRROLATE 1 MG/5 ML SYRINGE ONE (12:15)
[2018-11-22] MEDS ORDERED: DEXMEDETOMIDINE INJ 80 MCG/20 ML VIAL IV ONE (12:26)
[2018-11-22] MEDS ORDERED: MORPHINE SULFATE 10 MG/ML INJ IV PRN (14:00)
[2018-11-22] MEDS ORDERED: DIPHENHYDRAMINE HCL 50 MG/ML VIAL IV PRN (14:00)
[2018-11-22] MEDS ORDERED: PROMETHAZINE HCL INJ 25 MG/1 ML VIAL IV PRN ×2 (14:00)
[2018-11-22] MEDS ORDERED: FENTANYL CITRATE INJ/PF 100 MCG/2 ML AMPUL IV PRN ×3 (14:00)
[2018-11-22] MEDS ORDERED: MEPERIDINE HCL/PF INJ 25 MG/1 ML DISP.SYRIN IV PRN (14:00)
[2018-11-22] MEDS: FENTANYL CITRATE INJ/PF 100 MCG/2 ML AMPUL ONE ×2 (14:25→14:28)
[2018-11-22] MEDS ORDERED: OXYCODONE-ACETAMINOPHEN 5-325 MG TABLET ONE (15:12)
[2018-11-22] MEDS ORDERED: OXYCODONE-ACETAMINOPHEN 5-325 MG TABLET PO PRN (15:26)
[2018-11-22 16:38] VITALS: BP 133/74
--- NOTE | 2018-11-24 15:04 | Operative Report ---
Operative Report DATE OF SURGERY: 11/22/18 PREOPERATIVE DIAGNOSIS: 1. PermCath in place. 2. End-stage renal disease on hemodialysis. History of MRSA. 4. Multiple comorbidities. POSTOPERATIVE DIAGNOSIS: 1. PermCath in place. 2. End-stage renal disease on hemodialysis. History of MRSA. 4. Multiple comorbidities. OPERATION: Insertion of transposed basilic vein fistula on the left, second stage. SURGEON: MARYAM HAIDER TRUCK DESPATCHER: None. ANESTHESIA: LMAC TISSUE REMOVED OR ALTERED: Not applicable. COMPLICATIONS: None. ESTIMATED BLOOD LOSS: 20 mL. INTRAOPERATIVE FINDINGS: There was functioning first stage transposed basilic left arm. Pain somewhat on the smaller size about 5 mm. Relatively thick walled but distensible. Significant amount of side branches were noted connecting to the brachial vein 2 of these large enough to require suturing. Satisfactory transposition with palpable fistula. Functioning at the end of the procedure. Meticulous care and protection of adjacent nerves done. PROCEDURE: Operative Report PROCEDURE: After reviewing the procedure with the patient,, he was taken to the operating room. The patient was sedated and the left upper extremity prepared with chlorhexidine and draped out with sterile linen. After the "" universal timeout", in which it was verified that the patient [received IV antibiotics] the procedure commenced. The sterilely sheathed ultrasound probe was used to evaluate the size and topographic location of the existing veins. The fistula function was noted. This was transcribed topographical using a marking pen. Local anesthesia was infiltrated and a longitudinal incision started just above the elbow and dissection proceeded down to the vein. Sequential infiltration of local anesthesia, incision and dissection of the vein proceeded up to the axillary fold. The basilic vein was now dissected away from its branches which were either clipped and/or ligated and divided. In this way the basilic vein was freed up for its entire visible length. Its length was now measured with a dry umbilical tape which was used to transpose a tunnel onto the skin anteriorly and laterally. With this marked in ink, local anesthesia was infiltrated in the skin and subcutaneous tissue of the tunnel. A [place] tunneler was now inserted and the tunnel exposed. Serial sutures of 3-0 PDS were placed at about 3 cm intervals and placed on clamps. These gave lateral traction. Cautery was now used to incise the subcutaneous tissues so as to reveal the [place] tunneler. The length of the basilic vein was now shifted into the tunnel and sustained there by interrupted sutures of 3-0 PDS placed from the subcutaneous tissue on one side of the tunnel to the other. Once this was done the lateral flap was now approximated to the medial flap using interrupted sutures of 3-0 PDS. The fistula was interrogated from time to time to make sure that it was patent. A 15 [place] drain was placed deep in the wound and exiting inferiorly the it was sutured using 2-0 Prolene. The skin was closed with a continuous subcutaneous suture of 4-0 Monocryl. Steri-Strips were applied over benzoin and then a Kerlix wrap. The procedure was concluded. Copies dictated operative report to Dr. Maryam Perla MD thank you. DICTATING PHYSICIAN: MARYAM PERLA M.D
== END 2018-11-22 16:30 | disposition home or self-care (01) ==
LOC: OROUT 07:47
PROVIDERS: ATTEND Surgery
DX: I12.0 Hypertensive chronic kidney disease with stage 5 chronic kidney disease or end stage renal disease (principal); E11.22 Type 2 diabetes mellitus with diabetic chronic kidney disease; N18.6 End stage renal disease; Z99.2 Dependence on renal dialysis; R41.3 Other amnesia; K21.9 Gastro-esophageal reflux disease without esophagitis; G47.30 Sleep apnea, unspecified; Q60.0 Renal agenesis, unilateral; J44.9 Chronic obstructive pulmonary disease, unspecified; G89.29 Other chronic pain; G47.33 Obstructive sleep apnea (adult) (pediatric); Z86.14 Personal history of Methicillin resistant Staphylococcus aureus infection; Z79.899 Other long term (current) drug therapy
CPT/HCPCS: 36819; 36415; 82962; 85027; 80048; 01844; J2250; J3490 ×6; J3010; J1644; J2765; J2405; J3370; J7060; J2704; 1844

== ENCOUNTER 2018-12-12 04:48 | Emergency (ER) | payer BC ==
[2018-12-12] MEDS ORDERED: ASPIRIN 81 MG TABLET, CHEWABLE PO ONE (05:16)
--- NOTE | 2018-12-12 05:19 | ER Document Report ---
ED Medical Screen (RME) - General Chief Complaint: Chest Pain Stated Complaint: CHEST PAIN Time Seen by Provider: 12/12/18 05:11 Primary Care Provider: EDWARD GUTIERREZ MD [Primary Care Provider] - Follow up as needed Notes: 58-year-old male with history of end-stage renal disease on dialysis (Wednesday, last received this morning), comes to the emergency department for chest pain over the center and left side of his chest that started last night but worsened this morning. Pain is persistent, worse with deep breath. Denies shortness of breath, fever/chills, cough. He states he tried albuterol at home but this did not help. She denies history of VT, states he had a negative stress test in the past. TRAVEL OUTSIDE OF THE [place] IN LAST 30 DAYS: No - Related Data Allergies/Adverse Reactions: povidone-iodine [From Betadine] Allergy (Severe, Verified 11/03/18 15:31) Generalized rash Soap [From Betadine] Allergy (Severe, Verified 11/03/18 15:31) Generalized rash PAPER TAPE Allergy (Uncoded 11/03/18 15:31) Skin Redness Past Medical History - Social History Family history: Reviewed & Not Pertinent - Past Medical History Cardiac Medical History: Reports: Hx Hypercholesterolemia, Hx Hypertension - ON MEDS Denies: Hx Coronary Artery Disease, Hx Heart Attack Pulmonary Medical History: Reports: Hx Asthma - OCCASIONAL, USES INHALER PRN, Hx COPD, Hx Pneumonia - JUNE, Hx Sleep Apnea Denies: Hx Bronchitis Neurological Medical History: Denies: Hx Cerebrovascular Accident, Hx Seizures Endocrine Medical History: Reports: Hx Diabetes Mellitus Type 2 Renal/ Medical History: Reports: Hx End Stage Renal Disease, Hx Kidney Stones - kidney disease. Denies: Hx Peritoneal Dialysis GI Medical History: Reports: Hx Gastroesophageal Reflux Disease Musculoskeltal Medical History: Reports Hx Arthritis - hands, KNEES, Reports Hx Gout Skin Medical History: Reports Hx Eczema Psychiatric Medical History: Reports: Hx Depression Past Surgical History: Reports: Hx Appendectomy, Hx Kidney (Renal Surgery) - left kidney removed, Hx Tonsillectomy, Hx Vascular Surgery - PermCath placement for dialysis, Other - bilateral cataract extraction with insertion of lens - Immunizations Immunizations up to date: Yes Hx Diphtheria, Pertussis, Tetanus Vaccination: Yes History of Influenza Vaccine for 03/2017 - 08/2017 Season: Yes Influenza Administration Date for 03/2017 - 08/2017 Season: 03/14/17 Physical Exam - Vital signs Vitals: Temp Pulse Resp BP Pulse Ox 98.1 F 92 20 135/59 H 96 12/12/18 04:55 12/12/18 04:55 12/12/18 04:55 12/12/18 04:55 12/12/18 04:55 - General General appearance: Other - Appears mildly anxious and slightly uncomfortable but does not appear to be in distress - Respiratory Respiratory status: No respiratory distress. No: Labored, Tachypnea Breath sounds: Normal. No: Decreased air movement, Wheezing - Cardiovascular Rhythm: Regular. No: Tachycardia Heart sounds: Normal auscultation, S1 appreciated, S2 appreciated Course - Re-evaluation Re-evalutation: I have greeted and performed a rapid initial assessment of this patient. A comprehensive ED assessment and evaluation of the patient, analysis of test results and completion of the medical decision making process will be conducted by additional ED providers. - Vital Signs Vital signs: Temp Pulse Resp BP Pulse Ox 98.1 F 92 20 135/59 H 96 12/12/18 04:55 12/12/18 04:55 12/12/18 04:55 12/12/18 04:55 12/12/18 04:55 Doctor's Discharge - Discharge Referrals: EDWARD GUTIERREZ MD [Primary Care Provider] - Follow up as needed
[2018-12-12 06:00] LABS: ABSOLUTE EOSINOPHILS # (AUTO) 0.1 10^3/uL (0.0-0.6); ABSOLUTE LYMPHOCYTES (AUTO) 1.5 10^3/uL (0.5-4.7); ABSOLUTE MONOCYTES (AUTO) 0.8 10^3/uL (0.1-1.4); ABSOLUTE NEUT (AUTO) 9.4 10^3/uL (1.7-8.2); BASOPHILS % (AUTO) 0.2 % (0-2); EOSINOPHILS % (AUTO) 0.5 % (0-6); HEMATOCRIT 36.7 % (37.9-51.0); HEMOGLOBIN 12.1 g/dL (13.5-17.0); LYMPHOCYTES % (AUTO) 12.4 % (13-45); MEAN CORPUSCULAR VOLUME 91 fl (80-97); MONOCYTES % (AUTO) 6.7 % (3-13); PLATELET COUNT 197 10^3/uL (150-450); RED BLOOD COUNT 4.04 10^6/uL (4.35-5.55); RED CELL DISTRIBUTION WIDTH 14.5 % (11.5-14.0); SEGMENTED NEUTROPHILS % (AUTO) 80.2 % (42-78); TOTAL CELLS COUNTED % (AUTO) 100 %; WHITE BLOOD COUNT 11.7 10^3/uL (4.0-10.5)
--- NOTE | 2018-12-12 06:01 | RADIOLOGY REPORT (SQ) ---
EXAM DESCRIPTION: XR CHEST 1 VIEW COMPLETED DATE/TME: 12/12/2018 05:17 CLINICAL HISTORY: 58 years, Male, chest pain COMPARISON: 11/03/2018 chest NUMBER OF VIEWS: 1 TECHNIQUE: Portable chest LIMITATIONS: None. FINDINGS: Stable cardiomegaly. Central venous catheter with the tip in the cavoatrial junction. No pneumothorax. Osteopenia. Minor scarring left lung base IMPRESSION: Cardiomegaly. Central venous catheter in place. copyright 2010 [employer]- All Rights Reserved
[2018-12-12 06:22] LABS: ALANINE AMINOTRANSFERASE 21 U/L (21-72); ALBUMIN 4.2 g/dL (3.5-5.0); ALKALINE PHOSPHATASE 53 U/L (38-126); ANION GAP 16 (5-19); ASPARTATE AMINO TRANSFERASE 16 U/L (17-59); BILIRUBIN,DIRECT 0.6 mg/dL (0.0-0.4); BLOOD UREA NITROGEN 84 mg/dL (7-20); CALCIUM 8.7 mg/dL (8.4-10.2); CARBON DIOXIDE 21 mmol/L (22-30); CHLORIDE 100 mmol/L (98-107); GLUCOSE 241 mg/dL (75-110); SODIUM 136.7 mmol/L (137-145); TOTAL PROTEIN 6.8 g/dL (6.3-8.2)
[2018-12-12 06:23] LABS: POTASSIUM 6.1 mmol/L (3.6-5.0)
[2018-12-12] MEDS ORDERED: HYDROCODONE/ACETAMINOPHEN 5-325 MG TABLET PO ONE (06:44)
[2018-12-12] MEDS ORDERED: MAG HYDROX/AL HYDROX/SIMETH SUSP 30 ML UDCUP PO ONE (06:45)
--- NOTE | 2018-12-12 06:47 | ER Document Report ---
ED General - General Chief Complaint: Chest Pain Stated Complaint: CHEST PAIN Time Seen by Provider: 12/12/18 05:11 Primary Care Provider: EDWARD GUTIERREZ MD [Primary Care Provider] - Follow up as needed Mode of Arrival: Ambulatory Information source: Patient TRAVEL OUTSIDE OF THE [place] IN LAST 30 DAYS: No - HPI Notes: Patient is a 58-year-old history of end-stage renal disease on dialysis since June of this year, currently is due for dialysis today comes in with a 2-day history of gradual onset and worsening chest discomfort with minimal belching but mainly worsening pain when he is moving through his chest. He reports no significant shortness of breath and has appropriate O2 sats room air 96% with respirations 18 at the bedside. The patient denies any nausea, vomiting, medication changes. The patient reports no abdominal pain or fever or constipation or diarrhea. He does not make any urine. He reports no significant cough. He states he had a negative cardiac stress test 2 years ago. He previously was on [place] for pain but is currently not. - Related Data Allergies/Adverse Reactions: povidone-iodine [From Betadine] Allergy (Severe, Verified 11/03/18 15:31) Generalized rash Soap [From Betadine] Allergy (Severe, Verified 11/03/18 15:31) Generalized rash PAPER TAPE Allergy (Uncoded 11/03/18 15:31) Skin Redness Past Medical History - General Information source: Patient - Social History Smoking Status: Unknown if Ever Smoked Frequency of alcohol use: None Drug Abuse: None Lives with: Family Family History: CAD, Other - Renal failure Patient has suicidal ideation: No Patient has homicidal ideation: No - Past Medical History Cardiac Medical History: Reports: Hx Hypercholesterolemia, Hx Hypertension - ON MEDS Denies: Hx Coronary Artery Disease, Hx Heart Attack Pulmonary Medical History: Reports: Hx Asthma - OCCASIONAL, USES INHALER PRN, Hx COPD, Hx Pneumonia - JUNE, Hx Sleep Apnea Denies: Hx Bronchitis Neurological Medical History: Denies: Hx Cerebrovascular Accident, Hx Seizures Endocrine Medical History: Reports: Hx Diabetes Mellitus Type 2 Renal/ Medical History: Reports: Hx End Stage Renal Disease, Hx Kidney Stones - kidney disease. Denies: Hx Peritoneal Dialysis GI Medical History: Reports: Hx Gastroesophageal Reflux Disease Musculoskeletal Medical History: Reports Hx Arthritis - hands, KNEES, Reports Hx Gout Skin Medical History: Reports Hx Eczema Psychiatric Medical History: Reports: Hx Depression Past Surgical History: Reports: Hx Appendectomy, Hx Kidney (Renal Surgery) - left kidney removed, Hx Tonsillectomy, Hx Vascular Surgery - PermCath placement for dialysis, Other - bilateral cataract extraction with insertion of lens - Immunizations Immunizations up to date: Yes Hx Diphtheria, Pertussis, Tetanus Vaccination: Yes Hx Pneumococcal Vaccination: 03/14/18 Review of Systems - Review of Systems -: Yes All other systems reviewed and negative Physical Exam - Vital signs Vitals: Temp Pulse Resp BP Pulse Ox 98.1 F 92 20 135/59 H 96 12/12/18 04:55 12/12/18 04:55 12/12/18 04:55 12/12/18 04:55 12/12/18 04:55 - Notes Notes: PHYSICAL EXAMINATION: GENERAL: Well-appearing, well-nourished and in no acute distress. HEAD: Atraumatic, normocephalic. EYES: Pupils equal round and reactive to light, extraocular movements intact, sclera anicteric, conjunctiva are normal. ENT: Nares patent, oropharynx clear without exudates. Moist mucous membranes. NECK: Normal range of motion, supple without lymphadenopathy LUNGS: Breath sounds clear to auscultation bilaterally and equal. No wheezes rales or rhonchi. HEART: Regular rate and rhythm without murmurs. Examination left upper chest wall shows mid port site in place. The patient has diffuse discomfort musculoskeletal on palpation throughout the chest, but there is no erythema or crepitance or bony deformity. ABDOMEN: Soft, nontender, nondistended abdomen. No guarding, no rebound. No masses appreciated. Musculoskeletal: Normal range of motion, no pitting or edema. No cyanosis. NEUROLOGICAL: Cranial nerves grossly intact. Normal speech, normal gait. Normal sensory, motor exams PSYCH: Normal mood, normal affect. SKIN: Warm, Dry, normal turgor, no rashes or lesions noted. Course - Re-evaluation Re-evalutation: 12/12/18 07:05 Patient was given [place] with some relief of his discomfort. Troponin negative of the lab studies appropriate for patient needs dialysis today. Negative chest x-ray without evidence for pneumonia or pneumothorax. There is no cellulitis. Findings fit more so with a musculoskeletal etiology given the negative EKG negative troponin and negative chest x-ray. Patient will go to dialysis today and will follow up with his regular practitioner to see if he can arrange for outpatient cardiology referral. No evidence for acute cardiac syndrome currently. - Vital Signs Vital signs: Temp Pulse Resp BP Pulse Ox 98.1 F 92 15 126/74 H 98 12/12/18 04:55 12/12/18 04:55 12/12/18 06:00 12/12/18 05:11 12/12/18 05:17 - Laboratory Result Diagrams: 12/12/18 05:45 12/12/18 05:45 Laboratory results interpreted by me: 12/12/18 12/12/18 05:45 05:45 WBC 11.7 H RBC 4.04 L Hgb 12.1 L Hct 36.7 L RDW 14.5 H Seg Neutrophils % 80.2 H Lymphocytes % 12.4 L Absolute Neutrophils 9.4 H Sodium 136.7 L Potassium 6.1 H* Carbon Dioxide 21 L BUN 84 H Creatinine 10.81 H Est GFR ( Amer) 6 L Est GFR (Non-Af Amer) 5 L Glucose 241 H Direct Bilirubin 0.6 H AST 16 L - EKG Interpretation by Me EKG shows normal: Sinus rhythm Additional EKG results interpreted by me: 12/12/18 07:05 EKG is interpreted by me showed normal sinus rhythm heart rate of 91. There is no gross evidence for acute TX or ischemia noted. There is no changes compared to previous EKG reviewed from 11/03/2018. Discharge - Discharge Clinical Impression: End-stage renal disease on hemodialysis Chest pain Qualifiers: Chest pain type: unspecified Qualified Code(s): R07.9 - Chest pain, unspecified Condition: Stable Disposition: HOME, SELF-CARE Instructions: Chest Wall Pain ([facility]), Chest Pain of Unclear Cause ([facility]) Additional Instructions: Follow-up with your regular practitioner and seek cardiology outpatient evaluation for chest pain. Prescriptions: Hydrocodone/Acetaminophen [[place] 5-325 mg Tablet] 1 tab PO Q4HP PRN #20 tablet PRN Reason: Referrals: EDWARD GUTIERREZ MD [Primary Care Provider] - Follow up tomorrow
[2018-12-12 07:52] VITALS: BP 144/78
--- NOTE | 2018-12-13 00:38 | EKG REPORT ---
SEVERITY:- ABNORMAL ECG - SINUS RHYTHM INFERIOR INFARCT, AGE INDETERMINATE ANTERIOR INFARCT, AGE INDETERMINATE : Confirmed by: Genoveva Whalen 13-Dec-2018 00:37:09
== END 2018-12-12 07:28 | disposition home or self-care (01) ==
LOC: ER 04:48
DX: R07.9 Chest pain, unspecified (principal); E11.22 Type 2 diabetes mellitus with diabetic chronic kidney disease; I12.0 Hypertensive chronic kidney disease with stage 5 chronic kidney disease or end stage renal disease; N18.6 End stage renal disease; E78.00 Pure hypercholesterolemia, unspecified; Z99.2 Dependence on renal dialysis; Z87.442 Personal history of urinary calculi
CPT/HCPCS: 36415; 71045; 80053; 84484; 85025; 93005; 93010; 99285

== ENCOUNTER 2018-12-12 12:09 | Observation (INO) | payer BC ==
--- NOTE | 2018-12-12 12:30 | ER Document Report ---
ED Medical Screen (RME) - General Chief Complaint: Altered Mental Status Stated Complaint: ALTERED MENTAL STATUS Time Seen by Provider: 12/12/18 12:28 Primary Care Provider: EDWARD GUTIERREZ MD [Primary Care Provider] - Follow up as needed Mode of Arrival: Wheelchair Notes: Patient was sent here from dialysis with a concern of not being able to access his dialysis catheter. Patient also was confused at dialysis which is not his normal per staff at [facility]. Patient is here for altered mental status. Patient complains of generalized weakness left-sided chest pain. I have greeted and performed a rapid initial assessment of this patient. A comprehensive ED assessment and evaluation of the patient, analysis of test results and completion of the medical decision making process will be conducted by additional ED providers. TRAVEL OUTSIDE OF THE [place] IN LAST 30 DAYS: No - Related Data Allergies/Adverse Reactions: povidone-iodine [From Betadine] Allergy (Severe, Verified 12/12/18 12:11) Generalized rash Soap [From Betadine] Allergy (Severe, Verified 12/12/18 12:11) Generalized rash PAPER TAPE Allergy (Uncoded 12/12/18 12:11) Skin Redness Past Medical History - Social History Family history: Reviewed & Not Pertinent - Past Medical History Cardiac Medical History: Reports: Hx Hypercholesterolemia, Hx Hypertension - ON MEDS Denies: Hx Coronary Artery Disease, Hx Heart Attack Pulmonary Medical History: Reports: Hx Asthma - OCCASIONAL, USES INHALER PRN, Hx COPD, Hx Pneumonia - JUNE, Hx Sleep Apnea Denies: Hx Bronchitis Neurological Medical History: Denies: Hx Cerebrovascular Accident, Hx Seizures Endocrine Medical History: Reports: Hx Diabetes Mellitus Type 2 Renal/ Medical History: Reports: Hx End Stage Renal Disease, Hx Kidney Stones - kidney disease. Denies: Hx Peritoneal Dialysis GI Medical History: Reports: Hx Gastroesophageal Reflux Disease Musculoskeltal Medical History: Reports Hx Arthritis - hands, KNEES, Reports Hx Gout Skin Medical History: Reports Hx Eczema Psychiatric Medical History: Reports: Hx Depression Past Surgical History: Reports: Hx Appendectomy, Hx Kidney (Renal Surgery) - left kidney removed, Hx Tonsillectomy, Hx Vascular Surgery - PermCath placement for dialysis, Other - bilateral cataract extraction with insertion of lens - Immunizations Immunizations up to date: Yes Hx Diphtheria, Pertussis, Tetanus Vaccination: Yes History of Influenza Vaccine for 03/2017 - 08/2017 Season: Yes Influenza Administration Date for 03/2017 - 08/2017 Season: 03/14/17 Physical Exam - Vital signs Vitals: Temp Pulse Resp BP Pulse Ox 97.9 F 98 16 133/69 H 97 12/12/18 12:12/12/18 12:12/12/18 12:12/12/18 12:12/12/18 12:17 - General General appearance: Alert Notes: Patient unable to recall who the president is what holiday comments this week. - Neurological Orientation: Disoriented to events. No: Disoriented to person, Disoriented to place Course - Vital Signs Vital signs: Temp Pulse Resp BP Pulse Ox 97.9 F 98 16 133/69 H 97 12/12/18 12:12/12/18 12:12/12/18 12:12/12/18 12:12/12/18 12:17 Doctor's Discharge - Discharge Referrals: EDWARD GUTIERREZ MD [Primary Care Provider] - Follow up as needed
--- NOTE | 2018-12-12 13:47 | RADIOLOGY REPORT (SQ) ---
EXAM DESCRIPTION: CT HEAD WITHOUT COMPLETED DATE/TIME: 12/12/2018 1:38 pm REASON FOR STUDY: AMS COMPARISON: None. TECHNIQUE: Axial images acquired through the brain without intravenous contrast. Images reviewed wi th bone, brain and subdural windows. Additional sagittal and coronal reconstructions were generated. Images stored on PACS. All CT scanners at this facility use dose modulation, iterative reconstruction, and/or weight based d osing when appropriate to reduce radiation dose to as low as reasonably achievable (ALARA). [facility]: Dose Right [facility]: CareDose [facility]: Dose Right [facility]: Teradose 4D [facility]: [employer] RADIATION DOSE: CT Rad equipment meets quality standard of care and radiation dose reduction techniq ues were employed. CTDIvol: 53.2 mGy. DLP: 1097 mGy-cm. mGy. LIMITATIONS: None. FINDINGS: VENTRICLES: Prominent. CEREBRUM: No masses. No hemorrhage. No midline shift. Areas of low density in the white matter mos t likely due to chronic micro-vascular ischemic change. No evidence for acute infarction. CEREBELLUM: No masses. No hemorrhage. No alteration of density. No evidence for acute infarction. EXTRAAXIAL SPACES: Mild age-related involutional change. No fluid collections. No masses. ORBITS AND GLOBE: No intra- or extraconal masses. Normal contour of globe without masses. CALVARIUM: No fracture. PARANASAL SINUSES: No fluid or mucosal thickening. SOFT TISSUES: No mass or hematoma. OTHER: No other significant finding. IMPRESSION: MILD CHRONIC CHANGES OF ATROPHY AND MICROVASCULAR ISCHEMIA. NO ACUTE PROCESS. EVIDENCE OF ACUTE STROKE: NO. TECHNICAL DOCUMENTATION: JOB ID: [id number] Quality ID # [id number]: Final reports with documentation of one or more dose reduction techniques (e.g., Au tomated exposure control, adjustment of the mA and/or kV according to patient size, use of iterative reconstruction technique) 2010 [employer]- All Rights Reserved Reading location - IP/workstation name: [email or web address]
[2018-12-12 14:36] LABS: ABSOLUTE BASOPHILS # (AUTO) 0.1 10^3/uL (0.0-0.2); ABSOLUTE LYMPHOCYTES (AUTO) 1.6 10^3/uL (0.5-4.7); ABSOLUTE MONOCYTES (AUTO) 1.4 10^3/uL (0.1-1.4); ABSOLUTE NEUT (AUTO) 10.6 10^3/uL (1.7-8.2); BASOPHILS % (AUTO) 0.9 % (0-2); EOSINOPHILS % (AUTO) 0.1 % (0-6); HEMATOCRIT 36.4 % (37.9-51.0); HEMOGLOBIN 12.3 g/dL (13.5-17.0); INTERNATIONAL RATION (INR) 1.16; LYMPHOCYTES % (AUTO) 11.7 % (13-45); MEAN CORPUSCULAR HEMOGLOBIN 30.4 pg (27.0-33.4); MEAN CORPUSCULAR HGB CONC 33.9 g/dL (32.0-36.0); MEAN CORPUSCULAR VOLUME 90 fl (80-97); MONOCYTES % (AUTO) 10.1 % (3-13); PLATELET COUNT 200 10^3/uL (150-450); RED BLOOD COUNT 4.07 10^6/uL (4.35-5.55); SEGMENTED NEUTROPHILS % (AUTO) 77.2 % (42-78); TOTAL CELLS COUNTED % (AUTO) 100 %; WHITE BLOOD COUNT 13.7 10^3/uL (4.0-10.5)
[2018-12-12 14:37] LABS: PARTIAL THROMBOPLASTIN TIME 70.2 SEC (23.5-35.8)
[2018-12-12 14:38] LABS: PROTHROMBIN TIME 14.9 SEC (11.4-15.4)
--- NOTE | 2018-12-12 14:51 | Operative Report ---
Operative Report DATE OF SURGERY: 12/12/18 PREOPERATIVE DIAGNOSIS: End-stage renal disease on hemodialysis. Multiple rebeca rbidities. POSTOPERATIVE DIAGNOSIS: End-stage renal disease on hemodialysis. Multiple comorbidities. OPERATION: 1. Ultrasound-guided insertion of temporary hemodialysis catheter. SURGEON: MARYAM HAIDER JUDICIAL ADMINISTRATIVE ASSISTANT: None. ANESTHESIA: Local TISSUE REMOVED OR ALTERED: Not applicable. COMPLICATIONS: None. ESTIMATED BLOOD LOSS: 2 mL. INTRAOPERATIVE FINDINGS: Of a satisfactory right femoral vein about 2 cm in diameter. Deeply placed in ultrasound of great use. Satisfactory placement of temporary hemodialysis catheter via. Real-time access in the right femoral vein . PROCEDURE: After obtaining informed consent, the patient was positioned supine at bedside. The[right groin] and adjacent areas were prepared with chlorhexidine and draped out with sterile linen. After the universal timeout the procedure commenced. A steriley sheathed ultrasound probe was used to evaluate the [right femoral vein]. Local anesthesia was infiltrated adjacent to the probe. Access into the right femoral was accomplished using a micropuncture needle followed, by micropuncture wire and then with a micropuncture catheter. This was followed by introduction of a 0.035 guidewire, the skin opening was enlarged slightly, serially larger dilators were now placed followed by introduction of a triaysis catheter. All of these transitions were smooth. Each lumen was aspirated of blood and irrigated with heparinized solution. The catheter was now sutured to the skin using 3-0 nylon. A Bio A patch was now applied, followed by sterile dressings. Caps were placed on the end of the each of the lumens. The procedure concluded. Copies dictated operative report to Dr. Maryam Perla MD.
[2018-12-12 14:53] LABS: ALANINE AMINOTRANSFERASE 22 U/L (21-72); ALBUMIN 4.2 g/dL (3.5-5.0); ALKALINE PHOSPHATASE 64 U/L (38-126); ANION GAP 19 (5-19); ASPARTATE AMINO TRANSFERASE 11 U/L (17-59); BILIRUBIN,DIRECT 0.4 mg/dL (0.0-0.4); BLOOD UREA NITROGEN 82 mg/dL (7-20); CALCIUM 8.5 mg/dL (8.4-10.2); CARBON DIOXIDE 21 mmol/L (22-30); CHLORIDE 98 mmol/L (98-107); CREATINE KINASE 63 U/L (55-170); GLUCOSE 160 mg/dL (75-110); SODIUM 137.9 mmol/L (137-145); TOTAL PROTEIN 6.8 g/dL (6.3-8.2)
[2018-12-12 14:54] LABS: POTASSIUM 6.1 mmol/L (3.6-5.0)
[2018-12-12] MEDS ORDERED: INSULIN REG, HUMAN 100 UNIT/ML 3 ML VIAL (PYX) IV ONE (15:00)
[2018-12-12] MEDS ORDERED: CALCIUM GLUCONATE 1000 MG/10 ML INJ IV ONE (15:00)
[2018-12-12] MEDS ORDERED: DEXTROSE 50%-WATER 25 GM/50 ML DISP.SYRIN IV ONE (15:00)
[2018-12-12 15:07] LABS: CREATINE KINASE MB 1.64 ng/mL (<4.55); TROPONIN I < 0.012 ng/mL
--- NOTE | 2018-12-12 15:28 | RADIOLOGY REPORT (SQ) ---
EXAM DESCRIPTION: NON-TUNNEL CV CATH COMPLETED DATE/TIME: 12/12/2018 3:17 pm REASON FOR STUDY: NEED FOR VASCULAR ACCESS COMPARISON: None. FLUOROSCOPY TIME: 0 1 images saved to PACS. TECHNIQUE: Intra-operative images acquired during surgical procedure to evaluate progress. NUMBER OF IMAGES: 1 LIMITATIONS: None. FINDINGS: Ultrasound image obtained for vascular access. IMPRESSION: IMAGE(S) OBTAINED DURING PROCEDURE. COMMENT: Quality ID [id number]: Final reports for procedures using fluoroscopy that document radiation exp osure indices, or exposure time and number of fluorographic images (if radiation exposure indices are not available) Please consult full operative report of the attending physician for description of the procedure. TECHNICAL DOCUMENTATION: JOB ID: [id number]- All Rights Reserved Reading location - IP/workstation name: [email or web address]
[2018-12-12] MEDS ORDERED: SODIUM POLYSTYRENE SULFONATE 15 GM/60 ML PO ONE (16:31)
--- NOTE | 2018-12-12 20:29 | PDOC CONSULTATION ---
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 Besides that he was also found to have a potassium of 6.1. Patient denies any history of shortness of breath even though he came in early this morning with pleuritic chest pain which was diagnosed to be musculoskeletal in the ER and was discharged. Currently he does not have much of the pain that he came in earlier this morning. At that time we did not know that he had a clotted off axis issues. Besides all this patient is got a renal mass is chronic on the right kidney which has not been worked up in spite of multiple referrals to tertiary care centers. Somewhat patient and his have not kept up with appointments in spite of telling them very clearly that it could be renal cancer.He denies any history of fever or chills. Labs and medications were reviewed. Dr. Andie Perla has been contacted who was kind enough to place a temporary right femoral catheter. Unfortunately it was too late for him to be dialyzed this evening and therefore he is going to be dialyzed first thing in the morning. Discussions were done extensively with the patient and his at the bedside. Prior to his discharge he will need to have replacement of his left PermCath as otherwise he will not be able to dialyze as an outpatient. Past Medical History Cardiac Medical History: Reports: Hyperlipidemia, Hypertension-primary Denies: Coronary Artery Disease, Myocardial Infarction Pulmonary Medical History: Reports: Asthma - OCCASIONAL, USES INHALER PRN, Chronic Obstructive Pulmonary Disease (COPD), Pneumonia - JUNE, Sleep Apnea Denies: Bronchitis Neurological Medical History: Denies: Seizures Endocrine Medical History: Reports: Diabetes Mellitus Type 2, Obesity Complications of Diabetes: Reports: Nephropathy Renal/ Medical History: Reports: End Stage Renal Disease Malignancy Medical History: Reports: Other - Chronic right renal mass which has not been worked up. GI Medical History: Reports: Gastroesophageal Reflux Disease Musculoskeltal Medical History: Reports: Arthritis - hands, KNEES, Gout Skin Medical History: Reports: Eczema Psychiatric Medical History: Reports: Depression Past Surgical History Past Surgical History: Reports: Appendectomy, Nephrectomy - Left donated to his sister, Tonsillectomy, Vascular Surgery - PermCath placement for dialysis, Other - bilateral cataract extraction with insertion of lens Social History Smoking Status: Never Smoker Frequency of Alcohol Use: None Hx Recreational Drug Use: No Drugs: None Hx Prescription Drug Abuse: No Family History Parental Family History Reviewed: Yes - negative for esrd Children Family History Reviewed: No Sibling(s) Family History Reviewed.: No Medication/Allergy Home Medications: Amlodipine Besylate [Norvasc 10 mg Tablet] 10 mg PO DAILY 08/26/18 Calcium Acetate [Phoslo 667 mg Capsule] 1,334 mg PO MEALS #30 capsule 09/02/18 Doxazosin Mesylate [Cardura 4 mg Tablet] 4 mg PO DAILY #30 tablet 09/02/18 Metoprolol Tartrate [Lopressor 100 mg Tablet] 100 mg PO Q12 tablet 09/02/18 Ropinirole HCl [Requip] 0.5 mg PO QHS #30 tablet 09/02/18 Insulin Aspart [Novolog Insulin (Aspart) 100 unit/mL] 25 unit SUBCUT [id number] 10/06/18 Minoxidil [Loniten 2.5 mg Tablet] 5 mg PO DAILY 10/06/18 Colestipol HCl [Colestid 1 gm Tablet] 2 gm PO QPM 11/03/18 Gabapentin [Neurontin 100 mg Capsule] 100 mg PO Q8 11/03/18 Hydroxyzine HCl [Atarax 25 mg Tablet] 12.5 mg PO Q8HP PRN 11/03/18 Atorvastatin Calcium [Lipitor 80 mg Tablet] 80 mg PO QHS 11/16/18 Oxycodone HCl/Acetaminophen [Percocet 5-325 mg Tablet] 1 tab PO ASDIR PRN #15 tab 11/22/18 Hydrocodone/Acetaminophen [Maywood 5-325 mg Tablet] 1 tab PO Q4HP PRN #20 tablet 12/12/18 Allergies/Adverse Reactions: povidone-iodine [From Betadine] Allergy (Severe, Verified 12/12/18 12:11) Generalized rash Soap [From Betadine] Allergy (Severe, Verified 12/12/18 12:11) Generalized rash PAPER TAPE Allergy (Uncoded 12/12/18 12:11) Skin Redness Review of Systems Constitutional: PRESENT: weakness. ABSENT: anorexia, chills Eyes: ABSENT: visual disturbances Ears: ABSENT: hearing changes Nose, Mouth, and Throat: ABSENT: mouth pain, sore throat Cardiovascular: PRESENT: dyspnea on exertion, edema. ABSENT: chest pain Respiratory: PRESENT: dyspnea. ABSENT: cough, hemoptysis Gastrointestinal: ABSENT: as per HPI, coffee ground emesis, constipation, diarrhea, hematemesis, hematochezia Genitourinary: ABSENT: difficulty urinating, dysuria, hematuria Musculoskeletal: ABSENT: deformity, joint swelling Integumentary: ABSENT: erythema, lesions, pruritus, rash Neurological: ABSENT: abnormal gait, abnormal movements, confusion, convulsions, focal weakness, numbness, paresthesias Hematologic/Lymphatic: ABSENT: easy bleeding, easy bruising, lymphadenopathy Physical Exam Vital Signs: Temp Pulse Resp BP Pulse Ox 97.9 F 98 18 164/83 H 97 12/12/18 12:17 12/12/18 12:17 12/12/18 19:01 12/12/18 19:01 12/12/18 19:01 Intake & Output 12/11/18 12/12/18 12/13/18 06:59 06:59 06:59 Weight 126.1 kg General appearance: PRESENT: no acute distress, morbidly obese Eye exam: PRESENT: EOMI, PERRLA. ABSENT: nystagmus Ear exam: PRESENT: normal external ear exam Mouth exam: PRESENT: moist, neck supple Neck exam: ABSENT: lymphadenopathy, meningismus, tenderness, thyromegaly, tracheal deviation Respiratory exam: PRESENT: clear to auscultation octavia. ABSENT: crackles, decreased breath sounds Cardiovascular exam: PRESENT: +S1, +S2 GI/Abdominal exam: PRESENT: normal bowel sounds, soft. ABSENT: organomegaly, tenderness Extremities exam: PRESENT: +1 edema Neurological exam: PRESENT: alert, awake, oriented to person, oriented to place Psychiatric exam: PRESENT: flat affect Skin exam: ABSENT: erythema, mottled, rash Results Laboratory Results: 12/12/18 14:20 12/12/18 14:20 12/12/18 12/12/18 14:20 14:20 WBC 13.7 H RBC 4.07 L Hgb 12.3 L Hct 36.4 L MCV 90 MCH 30.4 MCHC 33.9 RDW 15.0 H Plt Count 200 Seg Neutrophils % 77.2 Lymphocytes % 11.7 L Monocytes % 10.1 Eosinophils % 0.1 Basophils % 0.9 Absolute Neutrophils 10.6 H Absolute Lymphocytes 1.6 Absolute Monocytes 1.4 Absolute Eosinophils 0.0 Absolute Basophils 0.1 Sodium 137.9 Potassium 6.1 H* Chloride 98 Carbon Dioxide 21 L Anion Gap 19 BUN 82 H Creatinine 11.23 H Est GFR ( Amer) 6 L Est GFR (Non-Af Amer) 5 L Glucose 160 H Calcium 8.5 Total Bilirubin 1.0 AST 11 L ALT 22 Alkaline Phosphatase 64 Total Protein 6.8 Albumin 4.2 12/12/18 12/12/18 14:20 14:20 Creatine Kinase 63 CK-MB (CK-2) 1.64 Troponin I < 0.012 Impressions: Interventional Vascular Procedure 12/12/18 00:00 IMPRESSION: IMAGE(S) OBTAINED DURING PROCEDURE. Head CT 12/12/18 12:28 IMPRESSION: MILD CHRONIC CHANGES OF ATROPHY AND MICROVASCULAR ISCHEMIA. NO ACUTE PROCESS. EVIDENCE OF ACUTE STROKE: NO. Assessment & Plan - Diagnosis (1) Hyperkalemia Plan: Patient was 6.1. Patient has been treated adequately in the ER with shifting medications as well as Kayexalate. I will order a potassium at 9. Discussed with nurse. To dialyze him first thing in the morning. (2) End-stage renal disease on hemodialysis Plan: Patient is got ESRD in the background of hypertension and diabetes mellitus. He was due for dialysis today but was found to have an obstructive/clotted off left IJ catheter. He says that he had this musculoskeletal chest pain for which she had come only to the ER and was discharged as per discussions done with Dr. Menchaca. Patient has had a temporary right femoral catheter placed by Dr. Perla but unfortunately by the time I was notified it was too late to have him undergo dialysis in this hospital as the dialysis nurse had been done for the day and patient had no acute indication.His potassium should respond to the medications being given in the ER. He has got features of uremia unless he has got undiagnosed liver disease because of asterixis. Will order an ammonia level for that as along with the potassium this night.Orders have been placed for him to have on hemodialysis first thing in the morning. Before his discharge he needs to have new IJ PermCath inserted by Dr. Perla as otherwise he will not be able to undergo dialysis as an outpatient on Wednesday.I have spoken with Dr. Perla this evening who will take care of the needful.Finally prior to his discharge he needs to have his temporary right femoral catheter removed as well.Dr. Gutierrez who is my partner will be covering for me tomorrow while the patient is on dialysis as I will be away from the hospital in the morning. (3) Diabetes mellitus type 2 in obese Plan: Advised tight control (4) Hypertension Plan: Controlled. (5) Obstructive sleep apnea Plan: Status quo. 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 He has had this chronic right renal mass for a 1-2 year and more but somehow patient and his have not kept up the appointments for further evaluations. They had been referred to [facility] but somehow has not kept up with appointments. Advised the patient and his to get in touch with Hao to see whether he can be re-referred to [facility] urology. (7) Class 2 obesity with body mass index (BMI) of 37.0 to 37.9 in adult Qualifiers: Plan: Status quo.
--- NOTE | 2018-12-12 21:47 | ER Document Report ---
ED General - General Chief Complaint: Altered Mental Status Stated Complaint: ALTERED MENTAL STATUS Time Seen by Provider: 12/12/18 12:28 Primary Care Provider: EDWARD GUTIERREZ MD [Primary Care Provider] - Follow up as needed Mode of Arrival: Wheelchair TRAVEL OUTSIDE OF THE [place] IN LAST 30 DAYS: No - HPI Notes: Patient is a 58-year-old male, end-stage renal disease on dialysis, who presents to the emergency department for evaluation. The patient was actually seen here overnight. He was seen by my colleague for chest pain. His chest pain is re producible. He had negative troponins x2. He was discharged with some hyperkalemia, sent directly to dialysis. Dialysis attempted through his left chest port, and they were unable to dialyze him, so they sent him here for further evaluation. The patient states his chest pain is all but gone. He states is only tender to touch at this point. He denies any other associated symptoms. - Related Data Allergies/Adverse Reactions: povidone-iodine [From Betadine] Allergy (Severe, Verified 12/12/18 12:11) Generalized rash Soap [From Betadine] Allergy (Severe, Verified 12/12/18 12:11) Generalized rash PAPER TAPE Allergy (Uncoded 12/12/18 12:11) Skin Redness Past Medical History - General Information source: Patient - Social History Smoking Status: Never Smoker Frequency of alcohol use: None Drug Abuse: None Family History: CAD, Other - Renal failure Patient has suicidal ideation: No Patient has homicidal ideation: No - Past Medical History Cardiac Medical History: Reports: Hx Hypercholesterolemia, Hx Hypertension - ON MEDS Denies: Hx Coronary Artery Disease, Hx Heart Attack Pulmonary Medical History: Reports: Hx Asthma - OCCASIONAL, USES INHALER PRN, Hx COPD, Hx Pneumonia - JUNE, Hx Sleep Apnea Denies: Hx Bronchitis Neurological Medical History: Denies: Hx Cerebrovascular Accident, Hx Seizures Endocrine Medical History: Reports: Hx Diabetes Mellitus Type 2 Renal/ Medical History: Reports: Hx End Stage Renal Disease, Hx Kidney Stones - kidney disease. Denies: Hx Peritoneal Dialysis Malignancy Medical History: Reports Other - Chronic right renal mass which has not been worked up. GI Medical History: Reports: Hx Gastroesophageal Reflux Disease Musculoskeletal Medical History: Reports Hx Arthritis - hands, KNEES, Reports Hx Gout Skin Medical History: Reports Hx Eczema Psychiatric Medical History: Reports: Hx Depression Past Surgical History: Reports: Hx Appendectomy, Hx Kidney (Renal Surgery) - left kidney removed, Hx Tonsillectomy, Hx Vascular Surgery - PermCath placement for dialysis, Other - bilateral cataract extraction with insertion of lens - Immunizations Immunizations up to date: Yes Hx Diphtheria, Pertussis, Tetanus Vaccination: Yes Hx Pneumococcal Vaccination: 03/14/18 Review of Systems - Review of Systems Constitutional: No symptoms reported EENT: No symptoms reported Cardiovascular: See HPI Respiratory: No symptoms reported Gastrointestinal: No symptoms reported Genitourinary: No symptoms reported Musculoskeletal: No symptoms reported Skin: No symptoms reported Neurological/Psychological: No symptoms reported Physical Exam - Vital signs Vitals: Temp Pulse Resp BP Pulse Ox 97.9 F 98 16 133/69 H 97 12/12/18 12:17 12/12/18 12:17 12/12/18 12:17 12/12/18 12:12/12/18 12:17 - Notes Notes: Vital signs reviewed, please refer to chart. Head is normocephalic, atraumatic. Pupils equal round, reactive to light. Neck is supple without meningismus. Heart is regular rate and rhythm. Lungs are clear to auscultation bilaterally. Chest wall is tender to palpation. There is a dialysis catheter in his left chest just inferior to the medial clavicle without surrounding erythema or edema. Abdomen is soft, nontender, normoactive bowel sounds throughout. Extremities without cyanosis, clubbing. Posterior calves are nontender. Peripheral pulses are equal. Skin is warm and dry. Patient is awake, alert, neurological exam is nonfocal. Course - Re-evaluation Re-evalutation: 12/12/18 21:45 Patient presents emergency department for evaluation. He has known hyperkalemia, is on his longer break from dialysis, and was unable to be dialyzed today. Dr. Perla was consulted, he did place a temporary dialysis catheter in his right femoral. The patient tolerated this well. He did not have any other symptoms while here. Dialysis nurse was consulted, who consented the patient for dialysis. I spoke with Dr. Steele at 1725, who agreed to see the patient in consultation and write dialysis orders. Patient had another troponin which was found to be negative. I was initially told that we had no further dialysis beds, but was later told that these would not be capped. There would be no need to keep the patient in the emergency department overnight, as I was initially told. I spoke with Dr. Leone at 2140, he accepted the patient for observation. - Vital Signs Vital signs: Temp Pulse Resp BP Pulse Ox 97.9 F 98 18 164/83 H 97 12/12/18 12:17 12/12/18 12:17 12/12/18 19:01 12/12/18 19:01 12/12/18 19:01 - Laboratory Result Diagrams: 12/12/18 14:20 12/12/18 14:20 Laboratory results interpreted by me: 12/12/18 12/12/18 12/12/18 14:20 14:20 14:20 WBC 13.7 H RBC 4.07 L Hgb 12.3 L Hct 36.4 L RDW 15.0 H Lymphocytes % 11.7 L Absolute Neutrophils 10.6 H APTT 70.2 H Potassium 6.1 H* Carbon Dioxide 21 L BUN 82 H Creatinine 11.23 H Est GFR ( Amer) 6 L Est GFR (Non-Af Amer) 5 L Glucose 160 H POC Glucose AST 11 L 12/12/18 16:13 WBC RBC Hgb Hct RDW Lymphocytes % Absolute Neutrophils APTT Potassium Carbon Dioxide BUN Creatinine Est GFR ( Amer) Est GFR (Non-Af Amer) Glucose POC Glucose 164 H AST - Diagnostic Test Radiology reviewed: Reports reviewed Radiology results interpreted by me: 12/12/18 21:46 Interventional Vascular Procedure 12/12/18 00:00 IMPRESSION: IMAGE(S) OBTAINED DURING PROCEDURE. Head CT 12/12/18 12:28 IMPRESSION: MILD CHRONIC CHANGES OF ATROPHY AND MICROVASCULAR ISCHEMIA. NO ACUTE PROCESS. EVIDENCE OF ACUTE STROKE: NO. - EKG Interpretation by Me Additional EKG results interpreted by me: 12/12/18 21:46 Sinus mechanism with a rate of 92 bpm. First-degree AV block. Left axis deviation. Incomplete right bundle branch block. No significant change compared to prior study of December 12. Discharge - Discharge Clinical Impression: Hyperkalemia, End-stage renal disease on hemodialysis Condition: Stable Disposition: ADMITTED OBSERVATION Admitting Provider: Vasu (Hospitalist) Unit Admitted: Telemetry Referrals: EDWARD GUTIERREZ MD [Primary Care Provider] - Follow up as needed
[2018-12-12] MEDS ORDERED: MAG HYDROX/AL HYDROX/SIMETH SUSP 30 ML UDCUP PO PRN (23:12)
[2018-12-12] MEDS ORDERED: ONDANSETRON HCL INJ/PF 4 MG/2 ML SDV IV PRN (23:12)
[2018-12-12] MEDS ORDERED: TEMAZEPAM 15 MG CAPSULE PO PRN (23:12)
[2018-12-12] MEDS ORDERED: MAGNESIUM HYDROXIDE SUSP 30 ML UDCUP PO PRN (23:12)
[2018-12-12] MEDS ORDERED: MORPHINE SULFATE 10 MG/ML INJ IV PRN ×4 (23:20→23:28)
[2018-12-12] MEDS ORDERED: ACETAMINOPHEN 325 MG TABLET PO PRN (23:20)
[2018-12-12] MEDS ORDERED: LEVALBUTEROL HCL NEB 0.63 MG/3 ML AMPUL NEB PRN (23:20)
[2018-12-12] MEDS ORDERED: GLUCAGON,HUMAN RECOMB 1 MG INJ IM PRN (23:21)
[2018-12-12] MEDS ORDERED: DEXTROSE 50%-WATER 25 GM/50 ML DISP.SYRIN IV PRN ×2 (23:21)
[2018-12-12] MEDS ORDERED: DEXTROSE 40% GEL 15 GM TUBE PO PRN ×2 (23:21)
[2018-12-12] MEDS ORDERED: HYDRALAZINE HCL INJ/PF 20 MG/1 ML SDV IV PRN (23:22)
[2018-12-12] MEDS ORDERED: METOPROLOL TARTRATE PF/INJ 5 MG/5 ML SDV IV PRN (23:22)
[2018-12-12] MEDS ORDERED: INSULIN REG, HUMAN 100 UNIT/ML 3 ML VIAL (PYX) SUBCUT ONE (23:45)
--- NOTE | 2018-12-13 00:38 | EKG REPORT ---
SEVERITY:- ABNORMAL ECG - SINUS RHYTHM FIRST DEGREE AV BLOCK NONSPECIFIC IVCD WITH LAD INFERIOR INFARCT, AGE INDETERMINATE LVH : Confirmed by: Genoveva Whalen 13-Dec-2018 00:37:01
--- NOTE | 2018-12-13 03:01 | ADVANCED CARE ---
- Diagnosis (1) Hyperkalemia Diagnosis Current: Yes (2) End-stage renal disease on hemodialysis Diagnosis Current: Yes (3) Hypertension Diagnosis Current: Yes (4) Diabetes mellitus type 2 in obese Diagnosis Current: Yes (5) Hyperlipidemia Diagnosis Current: Yes (6) Obstructive sleep apnea Diagnosis Current: Yes Attendance: The patient and myself Resuscitation Status: Full Code Discussion: Patient wishes to be a full code for recurrent resuscitation status throughout his hospital course in the event of a cardiac or respiratory arrest. He has named Anay Nathan as his designated surrogate medical decision-maker. Care Planning Goals: 1. Patient will be a full CODE STATUS throughout this hospitalization. 2. Anay Nathan is his designated surrogate medical decision-maker. Document(s) Completed: The following entries were made into the patient's permanent medical record as well as his current medical record and orders via EMR entry: 1. Patient will be a full CODE STATUS throughout this hospitalization. 2. Anay Nathan is his designated surrogate medical decision-maker. Time Spent: 5 minutes
--- NOTE | 2018-12-13 03:11 | PDOC H&P ---
History of Present Illness Admission Date/PCP: 12/12/18 22:06 EDWARD GUTIERREZ MD Patient complains of: Failed dialysis access History of Present Illness: CLARI TSAI JR is a 58 year old male who presented to the emergency room from outpatient dialysis where he was found to have an obstructed fistula graft which could not be cleared to allow for him to receive his hemodialysis. Patient presented to the emergency room where a temporary dialysis fistula was created by Dr. Perla. Dr. Steele intends to use the patient's temporary dialysis fistula to provide the patient with hemodialysis tomorrow and Dr. Perla intends to implant a permanent tunneled fistula for eventual dialysis use, also tomorrow. Patient reports that he feels slightly dyspneic and has noted mild swelling in his feet and hands typical of days when he has missed his dialysis appointment. He denies other symptoms or signs at this time, specifically pain. He was seen and evaluated for chest pain yesterday and was discharged from the ER after ruling out for myocardial ischemia or injury. He indicates that his chest is still somewhat tender to palpation along his breast bone, but he no longer has chest pain unless pressure is being applied to the area. In the ER the patient was found to have hyperkalemia at 6.1 and was treated with a hyperkalemia protocol reducing the potassium to 5.5. Dr. Steele asked the patient be placed on observation status overnight since that he could provide dialysis in the morning and Dr. Perla could complete his surgical tasks in the morning. Patient was subsequently admitted to observation status for further evaluation and treatment. Past Medical History Cardiac Medical History: Reports: Hyperlipidema, Hypertension - ON MEDS Denies: Coronary Artery Disease, Myocardial Infarction Pulmonary Medical History: Reports: Asthma - Mild intermittent, PRN inhaler use for treatment, Chronic Obstructive Pulmonary Disease (COPD), Pneumonia, Sleep Apnea Denies: Bronchitis EENT Medical History: Reports: Cataracts Denies: Ears - Hearing aids Neurological Medical History: Denies: Multiple Sclerosis, Seizures Endocrine Medical History: Reports: Diabetes Mellitus Type 2, Obesity Denies: Diabetes Mellitus Type 1, Hyperthyroidism, Hypothyroidism Renal/ Medical History: Reports: End Stage Renal Disease Denies: Nephrolithiasis Malignancy Medical History: Reports: None, Other - Chronic right renal mass which has not been worked up. GI Medical History: Reports: Gastroesophageal Reflux Disease Denies: Cirrhosis, Hepatitis Musculoskeltal Medical History: Reports: Arthritis - hands, KNEES, Gout Skin Medical History: Reports: Eczema Psychiatric Medical History: Reports: Depression Denies: Alcohol Dependency, Substance Abuse, Tobacco Dependency Traumatic Medical History: Reports: None Hematology: Denies: Anemia, Bleeding Tendencies Infectious Medical History: Reports: None Past Surgical History Past Surgical History: Reports: Appendectomy, Tonsillectomy, Vascular Surgery - PermCath placement for dialysis, Other - bilateral cataract extraction with insertion of lens Social History Information Source: Patient Lives with: Spouse/Significant other Smoking Status: Never Smoker Frequency of Alcohol Use: None Hx Recreational Drug Use: No Drugs: None Hx Prescription Drug Abuse: No - Advance Directive Resuscitation Status: Full Code Surrogate healthcare decision maker:: Anay Tsai Family History Family History: CAD, Other - Renal failure Parental Family History Reviewed: Yes Children Family History Reviewed: No Sibling(s) Family History Reviewed.: Yes Medication/Allergy Home Medications: Amlodipine Besylate [Norvasc 10 mg Tablet] 10 mg PO DAILY 08/26/18 Calcium Acetate [Phoslo 667 mg Capsule] 1,334 mg PO MEALS #30 capsule 09/02/18 Doxazosin Mesylate [Cardura 4 mg Tablet] 4 mg PO DAILY #30 tablet 09/02/18 Metoprolol Tartrate [Lopressor 100 mg Tablet] 100 mg PO Q12 tablet 09/02/18 Ropinirole HCl [Requip] 0.5 mg PO QHS #30 tablet 09/02/18 Insulin Aspart [Novolog Insulin (Aspart) 100 unit/mL] 25 unit SUBCUT [id number] 10/06/18 Minoxidil [Loniten 2.5 mg Tablet] 5 mg PO DAILY 10/06/18 Colestipol HCl [Colestid 1 gm Tablet] 2 gm PO QPM 11/03/18 Gabapentin [Neurontin 100 mg Capsule] 100 mg PO Q8 11/03/18 Hydroxyzine HCl [Atarax 25 mg Tablet] 12.5 mg PO Q8HP PRN 11/03/18 Atorvastatin Calcium [Lipitor 80 mg Tablet] 80 mg PO QHS 11/16/18 Oxycodone HCl/Acetaminophen [Percocet 5-325 mg Tablet] 1 tab PO ASDIR PRN #15 tab 11/22/18 Hydrocodone/Acetaminophen [[place] 5-325 mg Tablet] 1 tab PO Q4HP PRN #20 tablet 12/12/18 Allergies/Adverse Reactions: povidone-iodine [From Betadine] Allergy (Severe, Verified 12/12/18 12:11) Generalized rash Soap [From Betadine] Allergy (Severe, Verified 12/12/18 12:11) Generalized rash PAPER TAPE Allergy (Uncoded 12/12/18 12:11) Skin Redness Review of Systems Constitutional: ABSENT: chills, fever(s) Eyes: ABSENT: visual disturbances, other - Eye pain Ears: ABSENT: hearing changes, other - Ear pain Nose, Mouth, and Throat: ABSENT: mouth pain, sore throat Cardiovascular: PRESENT: chest pain - Seen and evaluated in ER yesterday, pain was reproducible on exam, dyspnea on exertion, edema. ABSENT: palpitations Respiratory: PRESENT: dyspnea. ABSENT: cough Gastrointestinal: ABSENT: abdominal pain, constipation, diarrhea, nausea, vomiting Genitourinary: ABSENT: dysuria, hematuria Musculoskeletal: ABSENT: back pain, joint swelling, muscle weakness Integumentary: ABSENT: pruritus, rash Neurological: ABSENT: confusion, convulsions, focal weakness, memory loss, syncope Psychiatric: ABSENT: anxiety, depression Endocrine: ABSENT: cold intolerance, heat intolerance Hematologic/Lymphatic: ABSENT: easy bleeding, easy bruising Physical Exam Vital Signs: Temp Pulse Resp BP Pulse Ox 97.9 F 98 18 164/83 H 97 12/12/18 12:17 12/12/18 12:17 12/12/18 19:01 12/12/18 19:01 12/12/18 19:01 Intake & Output 12/10/18 12/11/18 12/12/18 23:59 23:59 23:59 Weight 126.1 kg General appearance: PRESENT: no acute distress, cooperative, obese Head exam: PRESENT: atraumatic, normocephalic Eye exam: PRESENT: conjunctiva pink. ABSENT: conjunctival injection, scleral icterus Ear exam: PRESENT: normal external ear exam. ABSENT: bleeding, drainage Mouth exam: PRESENT: dry mucosa, neck supple Neck exam: ABSENT: JVD, thyromegaly, tracheal deviation Respiratory exam: PRESENT: chest wall tenderness - Mild to moderate parasternal tenderness on palpation, rales - Mild bibasilar rales, symmetrical, unlabored Cardiovascular exam: PRESENT: gallop - Faint S4 gallop, RRR. ABSENT: clicks, rubs Pulses: PRESENT: normal radial pulses, normal dorsalis pedis pul Vascular exam: PRESENT: normal capillary refill. ABSENT: pallor GI/Abdominal exam: PRESENT: normal bowel sounds, soft Rectal exam: PRESENT: deferred Extremities exam: PRESENT: pedal edema - Mild pedal edema. ABSENT: joint swelling Musculoskeletal exam: ABSENT: deformity, dislocation Neurological exam: PRESENT: alert, oriented to person, oriented to place, oriented to time, oriented to situation, CN II-XII grossly intact. ABSENT: motor sensory deficit Psychiatric exam: PRESENT: appropriate affect, normal mood Skin exam: PRESENT: dry, intact, warm. ABSENT: jaundice, rash, urticaria Results Laboratory Results: 12/12/18 14:20 12/12/18 21:15 12/12/18 12/12/18 12/12/18 14:20 14:20 21:15 WBC 13.7 H RBC 4.07 L Hgb 12.3 L Hct 36.4 L MCV 90 MCH 30.4 MCHC 33.9 RDW 15.0 H Plt Count 200 Seg Neutrophils % 77.2 Lymphocytes % 11.7 L Monocytes % 10.1 Eosinophils % 0.1 Basophils % 0.9 Absolute Neutrophils 10.6 H Absolute Lymphocytes 1.6 Absolute Monocytes 1.4 Absolute Eosinophils 0.0 Absolute Basophils 0.1 Sodium 137.9 Potassium 6.1 H* 5.5 H Chloride 98 Carbon Dioxide 21 L Anion Gap 19 BUN 82 H Creatinine 11.23 H Est GFR ( Amer) 6 L Est GFR (Non-Af Amer) 5 L Glucose 160 H Calcium 8.5 Total Bilirubin 1.0 AST 11 L ALT 22 Alkaline Phosphatase 64 Ammonia Total Protein 6.8 Albumin 4.2 12/12/18 21:15 WBC RBC Hgb Hct MCV MCH MCHC RDW Plt Count Seg Neutrophils % Lymphocytes % Monocytes % Eosinophils % Basophils % Absolute Neutrophils Absolute Lymphocytes Absolute Monocytes Absolute Eosinophils Absolute Basophils Sodium Potassium Chloride Carbon Dioxide Anion Gap BUN Creatinine Est GFR ( Amer) Est GFR (Non-Af Amer) Glucose Calcium Total Bilirubin AST ALT Alkaline Phosphatase Ammonia < 8.7 L Total Protein Albumin 12/12/18 12/12/18 14:20 14:20 Creatine Kinase 63 CK-MB (CK-2) 1.64 Troponin I < 0.012 Impressions: Interventional Vascular Procedure 12/12/18 00:00 IMPRESSION: IMAGE(S) OBTAINED DURING PROCEDURE. Head CT 12/12/18 12:28 IMPRESSION: MILD CHRONIC CHANGES OF ATROPHY AND MICROVASCULAR ISCHEMIA. NO ACUTE PROCESS. EVIDENCE OF ACUTE STROKE: NO. Assessment and Plan - Diagnosis (1) Hyperkalemia Is this a current diagnosis for this admission?: Yes Plan: Patient's potassium has reduced to 5.5 which is acceptable for his dialysis status. He will be maintained on a monitored bed with telemetry overnight until he can have dialysis tomorrow. Further intervention to lower his potassium will be provided if he shows any evidence of arrhythmia. (2) End-stage renal disease on hemodialysis Is this a current diagnosis for this admission?: Yes Plan: Patient will have a permanent dialysis tunneled fistula placed by Dr. Perla tomorrow. Dr. Steele will plan to dialyze patient tomorrow using either his temporary dialysis port. (3) Hypertension Qualifiers: Hypertension type: essential hypertension Qualified Code(s): I10 - Essential (primary) hypertension Is this a current diagnosis for this admission?: Yes Plan: Patient be continued on his usual antihypertensive regiment and a cardiac diet. Blood pressure be monitored closely throughout his hospital stay. (4) Diabetes mellitus type 2 in obese Is this a current diagnosis for this admission?: Yes Plan: Patient be continued on his usual diabetic medications and a diabetic diet. B efore meals and at bedtime blood sugars will be obtained via Accu-Chek and a sliding scale insulin dosage will be used for hyperglycemia. A hypoglycemia protocol is also in place. (5) Hyperlipidemia Qualifiers: Hyperlipidemia type: unspecified Qualified Code(s): E78.5 - Hyperlipidemia, unspecified Is this a current diagnosis for this admission?: Yes Plan: Patient will be continued on his current lipid therapy regimen and a low-fat diet. (6) Obstructive sleep apnea Is this a current diagnosis for this admission?: Yes Plan: Patient will use his usual home therapy for obstructive sleep apnea with a consult to respiratory therapy to provide CPAP/BiPAP/nasal cannula oxygen as per the patient's usual needs. - Time Time Spent with patient: 15-24 minutes Medications reviewed and adjusted accordingly: Yes Anticipated discharge: Home Within: within 24 hours - Inpatient Certification Based on my medical assessment, after consideration of the patient's comor bidities, presenting symptoms, or acuity I expect that the services needed warrant INPATIENT care.: No I certify that my determination is in accordance with my understanding of Medicare's requirements for reasonable and necessary INPATIENT services [42 CFR 412.3e].: No Medical Necessity: Need Close Monitoring Due to Risk of Patient Decompensation, Need For Continuous Telemetry Monitoring, Need for Surgery
[2018-12-13 05:10] LABS: HEMATOCRIT 33.1 % (37.9-51.0); HEMOGLOBIN 11.2 g/dL (13.5-17.0); MEAN CORPUSCULAR HEMOGLOBIN 30.5 pg (27.0-33.4); MEAN CORPUSCULAR HGB CONC 33.8 g/dL (32.0-36.0); MEAN CORPUSCULAR VOLUME 90 fl (80-97); PLATELET COUNT 182 10^3/uL (150-450); RED BLOOD COUNT 3.67 10^6/uL (4.35-5.55); RED CELL DISTRIBUTION WIDTH 14.8 % (11.5-14.0); WHITE BLOOD COUNT 9.5 10^3/uL (4.0-10.5)
[2018-12-13 05:39] LABS: ALANINE AMINOTRANSFERASE 15 U/L (21-72); ALBUMIN 3.5 g/dL (3.5-5.0); ALKALINE PHOSPHATASE 53 U/L (38-126); ANION GAP 17 (5-19); ASPARTATE AMINO TRANSFERASE 11 U/L (17-59); BILIRUBIN,DIRECT 0.4 mg/dL (0.0-0.4); BILIRUBIN,TOTAL 0.8 mg/dL (0.2-1.3); BLOOD UREA NITROGEN 92 mg/dL (7-20); CALCIUM 8.4 mg/dL (8.4-10.2); CARBON DIOXIDE 21 mmol/L (22-30); CHLORIDE 100 mmol/L (98-107); GLUCOSE 150 mg/dL (75-110); SODIUM 137.5 mmol/L (137-145); TOTAL PROTEIN 5.9 g/dL (6.3-8.2); TRIGLYCERIDES 181 mg/dL (<150)
[2018-12-13 05:51] LABS: DIRECT LDL 34 mg/dL (<100)
[2018-12-13 05:54] LABS: VLDL CHOLESTEROL 36.2 mg/dL (10-31)
[2018-12-13] MEDS ORDERED: HEPARIN SOD (PORCINE) 5,000 UNIT/ML 1 ML SYRINGE SUBCUT SCH (06:00)
[2018-12-13] MEDS ORDERED: PANTOPRAZOLE SODIUM 40 MG TABLET.DR PO SCH (06:00)
[2018-12-13] MEDS ORDERED: ALTEPLASE INJ 2 MG VIAL (CATH CLEARANCE) IV ONE (09:45)
[2018-12-13] MEDS ORDERED: DOCUSATE SODIUM 100 MG CAPSULE PO SCH (10:00)
[2018-12-13] MEDS: INSULIN REG, HUMAN 100 UNIT/ML 3 ML VIAL (PYX) SUBCUT SCH ×2 (10:02→11:37)
[2018-12-13 12:40] VITALS: BP 117/65
[2018-12-13] MEDS ORDERED: LIDOCAINE 0.5% INJ-PF (5 MG/ML) 50 ML SDV ONE (12:48)
[2018-12-13] MEDS ORDERED: ALTEPLASE INJ 2 MG VIAL (CATH CLEARANCE) ONE (13:09)
--- NOTE | 2018-12-13 13:32 | PDOC PROGRESS REPORT ---
Subjective Progress Note for:: 12/13/18 Subjective:: I saw the patient during dialysis this morning. He is currently being dialyzed on a temporary right inguinal trialysis catheter. He is a scheduled for a PermCath exchange after dialysis today by Dr. Perla. Currently he is doing fine and is tolerating dialysis without any much complaints. He said he has some pain over his PermCath yesterday but that is now gone. He said he just felt weak because he has been kept n.p.o. for the PermCath exchange procedure th is morning. He has on and off diarrhea and had some loose stools yesterday but not today yet. As his potassium was elevated yesterday at 6.1 today is 5.0. Patient is being monitored throughout dialysis treatment. Reason For Visit: FAILED DIALYSIS ACCESS Physical Exam Vital Signs: Temp Pulse Resp BP Pulse Ox 98.2 F 87 22 H 148/67 H 95 12/13/18 00:25 12/13/18 07:00 12/13/18 00:25 12/13/18 00:25 12/13/18 00:25 Intake & Output 12/12/18 12/13/18 12/14/18 06:59 06:59 06:59 Intake Total 0 Output Total 0 Balance 0 Weight 124.7 kg Vitals during dialysis: Blood pressure of 119/51, heart rate of 85, blood flow rate of 300 and more per minute and dialysate flow rate of 800 mL/min. Exam: General appearance: PRESENT: no acute distress, cooperative, well-developed, well-nourished Head exam: PRESENT: atraumatic, normocephalic Eye exam: PRESENT: conjunctiva slightly pale, PERRLA. ABSENT: scleral icterus Neck exam: ABSENT: JVD Respiratory exam: PRESENT: Normal breath sounds. ABSENT: crackles, rales, rhonchi, unlabored, wheezes Cardiovascular exam: PRESENT: Regular rate rhythm -+S1, +S2. ABSENT: diastolic murmur, systolic murmur GI/Abdominal exam: PRESENT: normal bowel sounds, soft. ABSENT: guarding, mass, tenderness Extremities exam: ABSENT: No edema Neurological exam: PRESENT: alert, awake, oriented to person, place and time. Skin exam: PRESENT: dry, warm, Cardiovascular exam: PRESENT: +S1, +S2 GI/Abdominal exam: PRESENT: normal bowel sounds, soft. ABSENT: organomegaly, tenderness Results Laboratory Results: 12/13/18 04:43 12/13/18 04:43 12/12/18 12/12/18 12/12/18 14:20 14:20 21:15 WBC 13.7 H RBC 4.07 L Hgb 12.3 L Hct 36.4 L MCV 90 MCH 30.4 MCHC 33.9 RDW 15.0 H Plt Count 200 Seg Neutrophils % 77.2 Lymphocytes % 11.7 L Monocytes % 10.1 Eosinophils % 0.1 Basophils % 0.9 Absolute Neutrophils 10.6 H Absolute Lymphocytes 1.6 Absolute Monocytes 1.4 Absolute Eosinophils 0.0 Absolute Basophils 0.1 Sodium 137.9 Potassium 6.1 H* 5.5 H Chloride 98 Carbon Dioxide 21 L Anion Gap 19 BUN 82 H Creatinine 11.23 H Est GFR ( Amer) 6 L Est GFR (Non-Af Amer) 5 L Glucose 160 H Calcium 8.5 Total Bilirubin 1.0 AST 11 L ALT 22 Alkaline Phosphatase 64 Ammonia Total Protein 6.8 Albumin 4.2 Triglycerides Cholesterol LDL Cholesterol Direct VLDL Cholesterol HDL Cholesterol 12/12/18 12/13/18 12/13/18 21:15 04:43 04:43 WBC 9.5 RBC 3.67 L Hgb 11.2 L Hct 33.1 L MCV 90 MCH 30.5 MCHC 33.8 RDW 14.8 H Plt Count 182 Seg Neutrophils % Lymphocytes % Monocytes % Eosinophils % Basophils % Absolute Neutrophils Absolute Lymphocytes Absolute Monocytes Absolute Eosinophils Absolute Basophils Sodium 137.5 Potassium 5.0 Chloride 100 Carbon Dioxide 21 L Anion Gap 17 BUN 92 H Creatinine 11.78 H Est GFR ( Amer) 5 L Est GFR (Non-Af Amer) 4 L Glucose 150 H Calcium 8.4 Total Bilirubin 0.8 AST 11 L ALT 15 L Alkaline Phosphatase 53 Ammonia < 8.7 L Total Protein 5.9 L Albumin 3.5 Triglycerides 181 H Cholesterol 117.10 LDL Cholesterol Direct 34 VLDL Cholesterol 36.2 H HDL Cholesterol 36 L 12/12/18 12/12/18 14:20 14:20 Creatine Kinase 63 CK-MB (CK-2) 1.64 Troponin I < 0.012 Impressions: Interventional Vascular Procedure 12/12/18 00:00 IMPRESSION: IMAGE(S) OBTAINED DURING PROCEDURE. Head CT 12/12/18 12:28 IMPRESSION: MILD CHRONIC CHANGES OF ATROPHY AND MICROVASCULAR ISCHEMIA. NO ACUTE PROCESS. EVIDENCE OF ACUTE STROKE: NO. Assessment & Plan - Diagnosis (1) End-stage renal disease on hemodialysis Is this a current diagnosis for this admission?: Yes Plan: We will do dialysis today for 3 hours, using the patient's right femoral trialysis catheter, with 2 potassium bath, blood flow rate of 350 mL per minute, dialysate flow rate of 800 mL per minute, ultrafiltration 3 L as tolerated, no heparin and no Procrit. Patient will be monitored throughout dialysis treatment. Dialysis prescription discussed with the nurse. (2) Hyperkalemia Is this a current diagnosis for this admission?: Yes Plan: Improved overnight. Dialysis today to further lower down the potassium. (3) Hemodialysis catheter malfunction Is this a current diagnosis for this admission?: Yes Plan: Patient is a scheduled for PermCath exchange today after dialysis. Once PermCath is in think the patient can be safely discharged home. (4) Anemia in chronic kidney disease (CKD) Qualifiers: Chronic kidney disease stage: stage 3 (moderate) Qualified Code(s): N18.3 - Chronic kidney disease, stage 3 (moderate); D63.1 - Anemia in chronic kidney disease Is this a current diagnosis for this admission?: Yes (5) Hypertension Qualifiers: Hypertension type: essential hypertension Qualified Code(s): I10 - Essential (primary) hypertension Is this a current diagnosis for this admission?: Yes Plan: Currently well controlled. (6) Renal mass Is this a current diagnosis for this admission?: Yes Plan: We will coordinate with the [facility] to find out which appointments the patient a ctually did go and find out any further appointments either in [facility] or with his local oncologist and urologist. Patient really is unable to tell me which doctors he did see and what appointments he has but aware of referral for [facility]. (7) Type 2 diabetes mellitus Is this a current diagnosis for this admission?: Yes Plan: Currently controlled. - Notes Notes: Once a new functional PermCath is placed, patient can be discharged home to continue outpatient hemodialysis at [facility] on his regular schedule. - Time Time with patient: 15-25 minutes
--- NOTE | 2018-12-13 14:21 | Operative Report ---
Operative Report DATE OF SURGERY: 12/13/18 PREOPERATIVE DIAGNOSIS: End-stage renal disease on hemodialysis. Multiple rebeca rbidities. POSTOPERATIVE DIAGNOSIS: End-stage renal disease on hemodialysis. Multiple comorbidities. OPERATION: 1. Catheter angiogram. 2. Instillation of catheter lysis, cath flow. SURGEON: MARYAM HAID[employer] FAMILY SOCIOLOGIST: None. ANESTHESIA: Other TISSUE REMOVED OR ALTERED: Not applicable. COMPLICATIONS: None. ESTIMATED BLOOD LOSS: 2 mL. INTRAOPERATIVE FINDINGS: Of a satisfactory and easy egress of blood and ingress of heparinized solution through both ports. The position of the catheter is in the superior vena cava which is a substantial vessel. Ideally it should be down in the atrium. In addition to the cuff of the catheter is just beneath the skin. In short this cath will need replacement possibly in the right jugular in the next few weeks. It should function fine for now. PROCEDURE: The patient was taken to the Sound Installation Worker and positioned supine. The left IJ based PermCath was prepared with chlorhexidine and draped out with sterile linen. After the [place] universal timeout each port of the catheter was accessed and easily aspirated of blood. Blood did not flow spontaneously however probably signaling normal superior vena cava pressure. There was easy ingress of heparinized egress of blood. 2.2 mils of Cathflo was not irrigated in each lumen which was capped off. The procedure concluded by applying dressings.
--- NOTE | 2018-12-13 15:29 | RADIOLOGY REPORT (SQ) ---
EXAM DESCRIPTION: FLUORO OF CENTRAL LINE COMPLETED DATE/TIME: 12/13/2018 1:40 pm REASON FOR STUDY: NEED FOR VASCULAR ACCESS COMPARISON: AP chest 12/12/2018 FLUOROSCOPY TIME: Less than 5 seconds 2 series of digital radiographic images saved to PACS. TECHNIQUE: Intra-operative images acquired during surgical procedure to evaluate progress. NUMBER OF IMAGES: 2 series of digital radiographic images LIMITATIONS: None. FINDINGS: 2 series of images during contrast injection of the dialysis catheter demonstrate filling of the right atrium and pulmonary outflow tract. Please see the operative report for further details IMPRESSION: IMAGE(S) OBTAINED DURING PROCEDURE. COMMENT: Quality ID [id number]: Final reports for procedures using fluoroscopy that document radiation exp osure indices, or exposure time and number of fluorographic images (if radiation exposure indices are not available) Please consult full operative report of the attending physician for description of the procedure. TECHNICAL DOCUMENTATION: JOB ID: [id number] [employer]- All Rights Reserved Reading location - IP/workstation name: [email or web address]
--- NOTE | 2018-12-13 19:03 | PDOC DISCHARGE SUMMARY ---
General - Admit/Disc Date/PCP Admission Date/Primary Care Provider: 12/12/18 22:06 EDWARD GUTIERREZ MD Discharge Date: 12/13/18 - Discharge Diagnosis (1) Diabetes mellitus type 2 in obese Is this a current diagnosis for this admission?: Yes Summary: Lifestyle modifications and dietary discretion advised. Resume outpatient medication management. (2) End-stage renal disease on hemodialysis Is this a current diagnosis for this admission?: Yes Summary: Patient received dialysis today. Permanent dialysis catheter evaluated by Dr. Perla today; instillation of catheter lysis with successful with subsequent appropriate cath flow. Nephrology was consulted; Dr. Gutierrez has approved patient to be discharged toni e. To resume his normal dialysis schedule tomorrow. (3) Hyperkalemia Is this a current diagnosis for this admission?: Yes Summary: Resolved; secondary to missed dialysis session related to permacath malfunction. Received dialysis today. PermCath has received at a place and now has adequate flow. Per nephrology, cleared for discharge to home; resume normal dialysis schedule tomorrow. (4) Hyperlipidemia Is this a current diagnosis for this admission?: Yes Summary: Lipid panel shows HDL 36, LDL 34, triglycerides 181, total cholesterol 117. Continue cardiac/dialysis diet; continue home dose atorvastatin. (5) Hypertension Is this a current diagnosis for this admission?: Yes Summary: Acceptable blood pressures on outpatient regiment. Continue cardiac/dialysis diet. Continue home dose amlodipine, Cardura, metoprolol, and minoxidil. (6) Obstructive sleep apnea Is this a current diagnosis for this admission?: Yes Summary: Patient utilized CPAP therapy overnight. - Additional Information Resuscitation Status: Full Code Discharge Diet: Cardiac, Diabetic, Other (Comments) - Dialysis Discharge Activity: Activity As Tolerated, Balance Activity w/Rest Home Medications: Acetaminophen [Tylenol 325 mg Tablet] 650 mg PO Q4HP PRN tablet 12/13/18 Albuterol Sulfate [Proair HFA Inhalation Aerosol 8.5 gm MDI] 2 puff IH Q6HP PRN 12/13/18 Amlodipine Besylate [Norvasc 10 mg Tablet] 10 mg PO DAILY 12/13/18 Atorvastatin Calcium [Lipitor 80 mg Tablet] 80 mg PO QHS 12/13/18 Calcium Acetate [Phoslo 667 mg Capsule] 2,001 mg PO MEALS 12/13/18 Docusate Sodium [Colace 100 mg Capsule] 100 mg PO BID capsule 12/13/18 Doxazosin Mesylate [Cardura 4 mg Tablet] 4 mg PO DAILY 12/13/18 Gabapentin [Neurontin 100 mg Capsule] 100 mg PO Q8HP PRN 12/13/18 Hydroxyzine HCl [Atarax 25 mg Tablet] 0.5 tab PO Q8HP PRN 12/13/18 Insulin Aspart [Novolog Insulin (Aspart) 100 unit/mL] 0 unit SUBCUT .SLD SCALE 12/13/18 Metoprolol Tartrate [Lopressor 100 mg Tablet] 100 mg PO Q12 12/13/18 Minoxidil [Loniten 2.5 mg Tablet] 5 mg PO DAILY 12/13/18 Omeprazole 40 mg PO Q6AM 12/13/18 Ropinirole HCl [Requip] 0.5 mg PO QHS 12/13/18 History of Present Illness History of Present Illness: Per H&P by Dr. Leone: CLARI TSAI JR is a 58 year old male who presented to the emergency room from outpatient dialysis where he was found to have an obstructed fistula graft which could not be cleared to allow for him to receive his hemodialysis. Patient presented to the emergency room where a temporary dialysis fistula was created by Dr. Perla. Dr. Steele [facility] to provide the patient with hemodialysis tomorrow and Dr. Perla intends to implant a permanent tunneled fistula for eventual dialysis use, also tomorrow. Patient reports that he feels slightly dyspneic and has noted mild swelling in his feet and hands typical of days when he has missed his dialysis appointment. He denies other symptoms or signs at this time, specifically pain. He was seen and evaluated for chest pain yesterday and was discharged from the ER after ruling out for myocardial ischemia or injury. He indicates that his chest is still somewhat tender to palpation along his breast bone, but he no longer has chest pain unless pressure is being applied to the area. In the ER the patient was found to have hyperkalemia at 6.1 and was treated with a hyperkalemia protocol reducing the potassium to 5.5. Dr. Steele asked the patient be placed on observation status overnight since that he could provide dialysis in the morning and Dr. Perla could complete his surgical tasks in the morning. Patient was subsequently admitted to observation status for further evaluation and treatment. Physical Exam Vital Signs: Temp Pulse Resp BP Pulse Ox 98.3 F 88 16 117/65 93 12/13/18 12:25 12/13/18 12:47 12/13/18 12:47 12/13/18 12:25 12/13/18 12:47 Intake & Output 12/12/18 12/13/18 12/14/18 06:59 06:59 06:59 Intake Total 0 Output Total 0 3400 Balance 0 -3400 Weight 124.7 kg General appearance: PRESENT: no acute distress, cooperative, well-developed, well-nourished - Overweight Head exam: PRESENT: atraumatic, normocephalic Eye exam: PRESENT: conjunctiva pink, EOMI, PERRLA. ABSENT: scleral icterus Ear exam: PRESENT: normal external ear exam Mouth exam: PRESENT: moist, tongue midline Neck exam: ABSENT: carotid bruit, JVD, lymphadenopathy, thyromegaly Respiratory exam: PRESENT: clear to auscultation octavia, symmetrical, unlabored. ABSENT: rales, rhonchi, wheezes Cardiovascular exam: PRESENT: RRR, +S1, +S2. ABSENT: diastolic murmur, rubs, systolic murmur Pulses: PRESENT: normal dorsalis pedis pul Vascular exam: PRESENT: normal capillary refill GI/Abdominal exam: PRESENT: normal bowel sounds, soft. ABSENT: distended, guarding, mass, organolmegaly, rebound, tenderness Rectal exam: PRESENT: deferred Extremities exam: PRESENT: full ROM, pedal edema - +1 pedal edema bilaterally. ABSENT: calf tenderness, clubbing Musculoskeletal exam: PRESENT: ambulatory Neurological exam: PRESENT: alert, awake, oriented to person, oriented to place, oriented to time, oriented to situation, CN II-XII grossly intact. ABSENT: motor sensory deficit Psychiatric exam: PRESENT: appropriate affect, normal mood. ABSENT: homicidal ideation, suicidal ideation Skin exam: PRESENT: dry, intact, warm. ABSENT: cyanosis, rash Results Laboratory Results: 12/13/18 04:43 12/13/18 04:43 12/12/18 12/12/18 12/12/18 14:20 21:15 21:15 WBC RBC Hgb Hct MCV MCH MCHC RDW Plt Count Sodium 137.9 Potassium 6.1 H* 5.5 H Chloride 98 Carbon Dioxide 21 L Anion Gap 19 BUN 82 H Creatinine 11.23 H Est GFR ( Amer) 6 L Est GFR (Non-Af Amer) 5 L Glucose 160 H Calcium 8.5 Total Bilirubin 1.0 AST 11 L ALT 22 Alkaline Phosphatase 64 Ammonia < 8.7 L Total Protein 6.8 Albumin 4.2 Triglycerides Cholesterol LDL Cholesterol Direct VLDL Cholesterol HDL Cholesterol 12/13/18 12/13/18 04:43 04:43 WBC 9.5 RBC 3.67 L Hgb 11.2 L Hct 33.1 L MCV 90 MCH 30.5 MCHC 33.8 RDW 14.8 H Plt Count 182 Sodium 137.5 Potassium 5.0 Chloride 100 Carbon Dioxide 21 L Anion Gap 17 BUN 92 H Creatinine 11.78 H Est GFR ( Amer) 5 L Est GFR (Non-Af Amer) 4 L Glucose 150 H Calcium 8.4 Total Bilirubin 0.8 AST 11 L ALT 15 L Alkaline Phosphatase 53 Ammonia Total Protein 5.9 L Albumin 3.5 Triglycerides 181 H Cholesterol 117.10 LDL Cholesterol Direct 34 VLDL Cholesterol 36.2 H HDL Cholesterol 36 L 12/12/18 12/12/18 14:20 14:20 Creatine Kinase 63 CK-MB (CK-2) 1.64 Troponin I < 0.012 Impressions: Interventional Vascular Procedure 12/12/18 00:00 IMPRESSION: IMAGE(S) OBTAINED DURING PROCEDURE. Head CT 12/12/18 12:28 IMPRESSION: MILD CHRONIC CHANGES OF ATROPHY AND MICROVASCULAR ISCHEMIA. NO ACUTE PROCESS. EVIDENCE OF ACUTE STROKE: NO. Qualifiers - * PATIENT BEING DISCHARGED WITH ANY OF THE FOLLOWING DIAGNOSIS: No Acute Heart Failure - Is this a Heart Failure Patient?: No Plan Discharge Plan: Keep dialysis appointment tomorrow as scheduled. Follow-up with primary care provider and diesel engine erector as scheduled. Take medications as prescribed; we have not made any adjustments to dosing or schedule. Return to the emergency department as needed for concerning symptoms. Time Spent: Greater than 30 Minutes
== END 2018-12-13 15:10 | disposition home or self-care (01) ==
LOC: ER 12:09 → EH 22:06 → 4S 12-13 01:16
PROVIDERS: ADMIT Emergency Medicine; ATTEND Emergency Medicine
PROC: 06HM33Z Insertion of Infusion Device into Right Femoral Vein, Percutaneous Approach (ICD-10-PCS; principal; 2018-12-12)
PROC: B54BZZA Ultrasonography of Right Lower Extremity Veins, Guidance (ICD-10-PCS; 2018-12-12)
PROC: 3C1ZX8Z Irrigation of Indwelling Device using Irrigating Substance, External Approach (ICD-10-PCS; 2018-12-13)
PROC: 5A1D70Z Performance of Urinary Filtration, Intermittent, Less than 6 Hours Per Day (ICD-10-PCS; 2018-12-13)
DX: T82.590A Other mechanical complication of surgically created arteriovenous fistula, initial encounter (principal); I12.0 Hypertensive chronic kidney disease with stage 5 chronic kidney disease or end stage renal disease; E11.22 Type 2 diabetes mellitus with diabetic chronic kidney disease; N18.6 End stage renal disease; Z99.2 Dependence on renal dialysis; E87.5 Hyperkalemia; E78.5 Hyperlipidemia, unspecified; G47.33 Obstructive sleep apnea (adult) (pediatric); N28.89 Other specified disorders of kidney and ureter; J44.9 Chronic obstructive pulmonary disease, unspecified; K21.9 Gastro-esophageal reflux disease without esophagitis; R41.82 Altered mental status, unspecified; M19.042 Primary osteoarthritis, left hand; M19.041 Primary osteoarthritis, right hand; M17.0 Bilateral primary osteoarthritis of knee; L30.9 Dermatitis, unspecified; F32.9 Major depressive disorder, single episode, unspecified; E66.01 Morbid (severe) obesity due to excess calories; D63.1 Anemia in chronic kidney disease; I44.0 Atrioventricular block, first degree; I45.10 Unspecified right bundle-branch block; R19.7 Diarrhea, unspecified; Z68.37 Body mass index [BMI] 37.0-37.9, adult; Z79.4 Long term (current) use of insulin; Z90.5 Acquired absence of kidney; Z88.8 Allergy status to other drugs, medicaments and biological substances; Z91.048 Other nonmedicinal substance allergy status; Z84.1 Family history of disorders of kidney and ureter; Z82.49 Family history of ischemic heart disease and other diseases of the circulatory system
CPT/HCPCS: 96523; 36573; 90970; 93005; 99285; 96374; 96375; 36415 ×2; 82553; 82962 ×2; 82140; 82550; 84132; 85027; 85610; 85730; 80053; 84484; 83036; 80061; 36556; 75898; 76937; 70450; 93010; 94660; G0378 ×2; C1752; Q9967; J2997; J0610; J3490 ×4; J1815; J1644; G0257

== ENCOUNTER 2019-01-02 07:06 | Inpatient (IN) | payer BC ==
[2019-01-02] MEDS ORDERED: NORMAL SALINE 1000 ML 1,000 ML IV ONE (07:13)
--- NOTE | 2019-01-02 07:20 | ER Document Report ---
ED Fever - General Stated Complaint: WEAKNESS Time Seen by Provider: 01/02/19 07:12 Primary Care Provider: EDWARD GUTIERREZ MD [Primary Care Provider] - Follow up as needed Notes: 58-year-old male history of end-stage renal disease presents with fever nausea vomiting and diarrhea starting last night. Patient stated he has had several loose bowel movements of watery diarrhea and several episodes of vomiting. He cannot provide any more specifics to frequency than that. The patient denies any chest pain or shortness of breath no cough no sore throat denies any abdominal pain. The patient denies any falls or trauma. The patient denies any rashes or skin sores. TRAVEL OUTSIDE OF THE [place] IN LAST 30 DAYS: No - Related Data Allergies/Adverse Reactions: povidone-iodine [From Betadine] Allergy (Severe, Verified 12/12/18 12:11) Generalized rash Soap [From Betadine] Allergy (Severe, Verified 12/12/18 12:11) Generalized rash PAPER TAPE Allergy (Uncoded 12/12/18 12:11) Skin Redness Past Medical History - Social History Smoking Status: Unknown if Ever Smoked Family History: CAD, Other - Renal failure - Past Medical History Cardiac Medical History: Reports: Hx Hypercholesterolemia, Hx Hypertension - ON MEDS Denies: Hx Coronary Artery Disease, Hx Heart Attack Pulmonary Medical History: Reports: Hx Asthma - Mild intermittent, PRN inhaler use for treatment, Hx COPD, Hx Pneumonia, Hx Sleep Apnea Denies: Hx Bronchitis Neurological Medical History: Denies: Hx Cerebrovascular Accident, Hx Seizures Endocrine Medical History: Reports: Hx Diabetes Mellitus Type 2. Denies: Hx Diabetes Mellitus Type 1, Hx Hyperthyroidism, Hx Hypothyroidism Renal/ Medical History: Reports: Hx End Stage Renal Disease, Hx Kidney Stones - kidney disease. Denies: Hx Peritoneal Dialysis GI Medical History: Reports: Hx Gastroesophageal Reflux Disease. Denies: Hx Cirrhosis, Hx Hepatitis Musculoskeletal Medical History: Reports Hx Arthritis - hands, KNEES, Reports Hx Gout Skin Medical History: Reports Hx Eczema Psychiatric Medical History: Reports: Hx Depression Infectious Medical History: Denies: Hx Hepatitis Past Surgical History: Reports: Hx Appendectomy, Hx Kidney (Renal Surgery) - left kidney removed, Hx Tonsillectomy, Hx Vascular Surgery - PermCath placement for dialysis, Other - bilateral cataract extraction with insertion of lens - Immunizations Immunizations up to date: Yes Hx Diphtheria, Pertussis, Tetanus Vaccination: Yes Hx Pneumococcal Vaccination: 03/14/18 Review of Systems - Review of Systems Constitutional: Chills, Fever EENT: denies: Throat pain Gastrointestinal: Diarrhea, Nausea, Vomiting. denies: Abdominal pain Neurological/Psychological: Weakness. denies: Dementia, Headaches, Numbness -: Yes All other systems reviewed and negative Physical Exam - Vital signs Vitals: Resp BP Pulse Ox 25 H 113/77 92 01/02/19 07:19 01/02/19 07:19 01/02/19 07:19 - Notes Notes: GENERAL_APPEARANCE: well_nourished, alert, cooperative VITALS: reviewed, see vital signs table. HEAD: no_swelling\tenderness on the head. EYES: PERRL, EOMI, conjunctiva_clear. NOSE: no_nasal_discharge. MOUTH: (-)decreased moisture. THROAT: no_tonsilar_inflammation, no_airway_obstruction. no_lymphadenopathy NECK: supple, no_neck_tenderness, (-)thyromegaly. BACK: no_back_tenderness. CHEST_WALL: no_chest_tenderness. Subclavian dialysis catheter no redness or heat around it. LUNGS: no_wheezing, no_rales, no_rhonchi, (-)accessory muscle use, good air exchange bilateral. HEART: normal_rate, normal_rhythm, normal_S1, normal_S2, (-)S3, (-)S4, no_murmur, no_rub. ABDOMEN: normal_BS, soft, no_abd_tenderness, (-)guarding, (-)rebound, no_organomegaly, no_abd_masses. EXTREMITIES: good pulses in all_extremities, no_swelling\tenderness in the extremities, no_edema. SKIN: Hot to touch, dry, good_color, no_rash. MENTAL_STATUS: speech_clear, oriented_X_3, normal_affect, responds_appropriately to questions. NEURO: Neg Motor or Sensory Deficits on exam, CN 2-12 intact, DTR 2+ symmetric x 4, No cerbellar signs Course - Re-evaluation Re-evalutation: 01/02/19 07:20 58-year-old male presents with nausea vomiting diarrhea and fever. Sepsis protocol was under done patient is febrile with a high heart rate. We will give a liter of IV fluids we will draw sepsis labs. 01/02/19 10:10 Urinalysis was negative. This may just likely be viral. Some vomiting and diarrhea lactic acid is normal. Patient's potassium is 5. He is actually a little fluid depleted. I have called we have dialysis beds. I spoke with the hospitalist service. Drying Unit Felting Machine Operator is Dr. Rushing. Give the patient broad-spectrum antibiotics. Vancomycin and Zosyn. Will bring the patient in the hospital continue with IV fluids and antibiotics. Again this may all be viral. Repeat abdominal exam is soft and supple without any focal tenderness. Spoke with the patient he is comfortable being admitted. - Vital Signs Vital signs: Temp Pulse Resp BP Pulse Ox 98.7 F 23 H 133/67 H 91 L 01/02/19 08:39 01/02/19 08:39 01/02/19 08:39 01/02/19 08:39 - Laboratory Result Diagrams: 01/02/19 07:36 01/02/19 07:36 Laboratory results interpreted by me: 01/02/19 01/02/19 01/02/19 07:36 07:36 07:36 WBC 21.5 H RBC 3.50 L Hgb 10.3 L Hct 31.3 L RDW 14.1 H Seg Neuts % (Manual) 94 H Lymphocytes % (Manual) 3 L Abs Neuts (Manual) 20.2 H PT 15.7 H VBG pCO2 Carbon Dioxide 20 L BUN 79 H Creatinine 11.29 H Est GFR ( Amer) 6 L Est GFR (Non-Af Amer) 5 L Glucose 248 H POC Glucose Direct Bilirubin 0.6 H Urine Protein Urine Glucose (UA) Urine Blood 01/02/19 01/02/19 01/02/19 07:36 07:47 09:25 WBC RBC Hgb Hct RDW Seg Neuts % (Manual) Lymphocytes % (Manual) Abs Neuts (Manual) PT VBG pCO2 33.6 L Carbon Dioxide BUN Creatinine Est GFR ( Amer) Est GFR (Non-Af Amer) Glucose POC Glucose 282 H Direct Bilirubin Urine Protein >=500 H Urine Glucose (UA) 150 H Urine Blood MODERATE H - Diagnostic Test Radiology reviewed: Reports reviewed Radiology results interpreted by me: 01/02/19 10:09 Chest X-Ray 01/02/19 07:09 IMPRESSION: Left basilar heterogeneous opacity, which may reflect atelectasis and/or airspace disease and is similar to prior examination. Consider PA and lateral chest radiographs or CT given stated clinical concern for sepsis. Cardiomegaly. Discharge - Discharge Clinical Impression: SIRS (systemic inflammatory response syndrome), Nausea vomiting and diarrhea Condition: Good Disposition: ADMITTED INPATIENT Admitting Provider: Fani (Hospitalist) Unit Admitted: Telemetry Referrals: EDWARD GUTIERREZ MD [Primary Care Provider] - Follow up as needed
[2019-01-02 07:51] LABS: HEMATOCRIT 31.3 % (37.9-51.0); HEMOGLOBIN 10.3 g/dL (13.5-17.0); MEAN CORPUSCULAR HEMOGLOBIN 29.6 pg (27.0-33.4); MEAN CORPUSCULAR HGB CONC 33.1 g/dL (32.0-36.0); MEAN CORPUSCULAR VOLUME 89 fl (80-97); PLATELET COUNT 257 10^3/uL (150-450); RED CELL DISTRIBUTION WIDTH 14.1 % (11.5-14.0); WHITE BLOOD COUNT 21.5 10^3/uL (4.0-10.5)
[2019-01-02 07:55] LABS: INTERNATIONAL RATION (INR) 1.24; PROTHROMBIN TIME 15.7 SEC (11.4-15.4)
[2019-01-02 08:02] LABS: VENOUS BLOOD BASE EXCESS -2.3 mmol/L; VENOUS BLOOD HCO3 21.2 mmol/L (20-32); VENOUS BLOOD PCO2 33.6 mmHg (35-63); VENOUS BLOOD PH 7.42 (7.30-7.42)
[2019-01-02 08:13] LABS: ABSOLUTE LYMPHOCYTES# (MANUAL) 0.6 10^3/uL (0.5-4.7); ABSOLUTE MONOCYTES # (MANUAL) 0.6 10^3/uL (0.1-1.4); ALANINE AMINOTRANSFERASE 43 U/L (21-72); ALBUMIN 3.8 g/dL (3.5-5.0); ALKALINE PHOSPHATASE 87 U/L (38-126); ANION GAP 19 (5-19); ASPARTATE AMINO TRANSFERASE 25 U/L (17-59); BASOPHILS % (MANUAL) 0 % (0-2); BILIRUBIN,DIRECT 0.6 mg/dL (0.0-0.4); BILIRUBIN,TOTAL 0.9 mg/dL (0.2-1.3); BLOOD UREA NITROGEN 79 mg/dL (7-20); CALCIUM 9.1 mg/dL (8.4-10.2); CARBON DIOXIDE 20 mmol/L (22-30); CHLORIDE 99 mmol/L (98-107); EOSINOPHILS % (MANUAL) 0 % (0-6); GLUCOSE 248 mg/dL (75-110); LYMPHOCYTES % (MANUAL) 3 % (13-45); MONOCYTES % (MANUAL) 3 % (3-13); PLATELET COMMENT ADEQUATE; RBC MORPHOLOGY COMMENT NORMO-CYTIC/CHROMIC; SEGMENTED NEUTROPHILS % (MAN) 94 % (42-78); TOTAL CELLS COUNTED 100; TOTAL PROTEIN 6.8 g/dL (6.3-8.2)
--- NOTE | 2019-01-02 08:14 | EKG REPORT ---
SEVERITY:- ABNORMAL ECG - SINUS TACHYCARDIA RIGHT AXIS DEVIATION INFERIOR INFARCT, AGE INDETERMINATE BORDERLINE R WAVE PROGRESSION, ANTERIOR LEADS : Confirmed by: Genoveva Whalen 02-Jan-2019 08:13:55
--- NOTE | 2019-01-02 08:29 | RADIOLOGY REPORT (SQ) ---
EXAM DESCRIPTION: CHEST SINGLE VIEW COMPLETED DATE/TIME: 01/02/2019 7:47 am REASON FOR STUDY: bed 1 sepsis protocol COMPARISON: 12/12/2018 EXAM PARAMETERS: NUMBER OF VIEWS: One view. TECHNIQUE: Single frontal radiographic view of the chest acquired. RADIATION DOSE: NA LIMITATIONS: None. FINDINGS: LUNGS AND PLEURA: Left basilar heterogeneous opacity, which may reflect atelectasis and/or airspace disease and is similar to prior examination. MEDIASTINUM AND HILAR STRUCTURES: No masses. Contour normal. HEART AND VASCULAR STRUCTURES: Cardiomegaly. BONES: No acute findings. HARDWARE: None in the chest. OTHER: Left chest large bore multi lumen vascular catheter. IMPRESSION: Left basilar heterogeneous opacity, which may reflect atelectasis and/or airspace diseas e and is similar to prior examination. Consider PA and lateral chest radiographs or CT given stated clinical concern for sepsis. Cardiomegaly. TECHNICAL DOCUMENTATION: JOB ID: [id number] [employer]- All Rights Reserved Reading location - IP/workstation name: [email or web address]
[2019-01-02] MEDS ORDERED: PIPERACILLIN/TAZOBACTAM 4.5 GM VIAL IV ONE (08:36)
[2019-01-02] MEDS ORDERED: VANCOMYCIN HCL INJ 1000 MG VIAL IV ONE (08:36)
[2019-01-02 09:52] LABS: AMORPHOUS SEDIMENT,URINE TRACE /HPF; APPEARANCE,URINE CLOUDY; BILIRUBIN,URINE NEGATIVE (NEGATIVE); COLOR,URINE AMBER; GLUCOSE, URINE 150 mg/dL (NEGATIVE); KETONES,URINE NEGATIVE (NEGATIVE); LEUKOCYTE ESTERASE,URINE NEGATIVE (NEGATIVE); NITRITE,URINE NEGATIVE (NEGATIVE); PROTEIN,URINE >=500 mg/dL (NEGATIVE); URINE SPECIFIC GRAVITY 1.019; UROBILINOGEN,URINE NEGATIVE mg/dL (<2.0)
[2019-01-02] MEDS ORDERED: DEXTROSE 50%-WATER 25 GM/50 ML DISP.SYRIN IV PRN ×2 (11:14)
[2019-01-02] MEDS ORDERED: GLUCAGON,HUMAN RECOMB 1 MG INJ IM PRN (11:14)
[2019-01-02] MEDS ORDERED: DEXTROSE 40% GEL 15 GM TUBE PO PRN ×2 (11:14)
[2019-01-02] MEDS ORDERED: HYDRALAZINE HCL INJ/PF 20 MG/1 ML SDV IV PRN (11:15)
[2019-01-02] MEDS ORDERED: IPRATROPIUM/ALBUTEROL 0.5-2.5 MG/3 ML AMPUL NEB PRN (11:24)
[2019-01-02] MEDS ORDERED: VANCOMYCIN HCL 0 MG in DEXTROSE 5%-WATER 250 ML IV NR (11:30)
--- NOTE | 2019-01-02 11:30 | PDOC H&P ---
History of Present Illness Admission Date/PCP: 01/02/19 10:19 EDWARD GUTIERREZ MD Patient complains of: vomiting, diarrhea History of Present Illness: CLARI TSAI JR is a 58 year old male with a past medical history of ESRD on MWF dialysis, hypertension, controlled diabetes mellitus, COPD, and ZACH who presented with vomiting and diarrhea. Patient on bedside stated does have chronic diarrhea that he had acute worsening watery stools over the past 2 weeks. He said he was passing out 3-4 episodes of watery, nonbloody stools daily. He also reports of throwing up once yesterday. He denies abdominal pain. noted that he had coughed out some greenish sputum yesterday. No fever chills at home. In the ER, he was noted to have an acute increase in his creatinine from his baseline. No hyperkalemia. He also has leukocytosis. His chest x-ray did show possible left lower lobe pneumonia. Note of area of erythema and drainage around the site of perm cath. Past Medical History Cardiac Medical History: Reports: Hyperlipidema, Hypertension - ON MEDS Denies: Coronary Artery Disease, Myocardial Infarction Pulmonary Medical History: Reports: Asthma - Mild intermittent, PRN inhaler use for treatment, Chronic Obstructive Pulmonary Disease (COPD), Pneumonia, Sleep Apnea Denies: Bronchitis Neurological Medical History: Denies: Seizures Endocrine Medical History: Reports: Diabetes Mellitus Type 2 Denies: Diabetes Mellitus Type 1, Hyperthyroidism, Hypothyroidism Renal/ Medical History: Reports: End Stage Renal Disease GI Medical History: Reports: Gastroesophageal Reflux Disease Denies: Cirrhosis, Hepatitis Musculoskeltal Medical History: Reports: Arthritis - hands, KNEES, Gout Skin Medical History: Reports: Eczema Psychiatric Medical History: Reports: Depression Hematology: Denies: Anemia, Bleeding Tendencies Past Surgical History Past Surgical History: Reports: Appendectomy, Tonsillectomy, Vascular Surgery - PermCath placement for dialysis, Other - bilateral cataract extraction with insertion of lens Social History Smoking Status: Unknown if Ever Smoked Frequency of Alcohol Use: None Hx Recreational Drug Use: No Drugs: None Hx Prescription Drug Abuse: No Family History Family History: CAD, Other - Renal failure Parental Family History Reviewed: Yes - No premature CAD Children Family History Reviewed: No Sibling(s) Family History Reviewed.: No Medication/Allergy Home Medications: Albuterol Sulfate [Proair HFA Inhalation Aerosol 8.5 gm MDI] 2 puff IH Q6HP PRN 12/13/18 Amlodipine Besylate [Norvasc 10 mg Tablet] 10 mg PO DAILY 12/13/18 Atorvastatin Calcium [Lipitor 80 mg Tablet] 80 mg PO QHS 12/13/18 Calcium Acetate [Phoslo 667 mg Capsule] 2,001 mg PO MEALS 12/13/18 Doxazosin Mesylate [Cardura 4 mg Tablet] 4 mg PO DAILY 12/13/18 Gabapentin [Neurontin 100 mg Capsule] 100 mg PO Q8HP PRN 12/13/18 Hydroxyzine HCl [Atarax 25 mg Tablet] 12.5 mg PO Q8HP PRN 12/13/18 Insulin Aspart [Novolog Insulin (Aspart) 100 unit/mL] 0 unit SUBCUT .SLD SCALE 12/13/18 Metoprolol Tartrate [Lopressor 100 mg Tablet] 100 mg PO Q12 12/13/18 Minoxidil [Loniten 2.5 mg Tablet] 5 mg PO DAILY 12/13/18 Ropinirole HCl [Requip] 0.5 mg PO QHS 12/13/18 Allergies/Adverse Reactions: povidone-iodine [From Betadine] Allergy (Severe, Verified 12/12/18 12:11) Generalized rash Soap [From Betadine] Allergy (Severe, Verified 12/12/18 12:11) Generalized rash PAPER TAPE Allergy (Uncoded 12/12/18 12:11) Skin Redness Review of Systems All systems: reviewed and no additional remarkable complaints except as stated - As mentioned in HPI Physical Exam Vital Signs: Temp Pulse Resp BP Pulse Ox 99.1 F 22 H 129/73 H 97 01/02/19 09:30 01/02/19 10:30 01/02/19 10:30 01/02/19 10:30 Intake & Output 01/01/19 01/02/19 01/03/19 06:59 06:59 06:59 Intake Total 1000 Balance 1000 General appearance: PRESENT: no acute distress, well-developed, well-nourished Head exam: PRESENT: atraumatic, normocephalic Eye exam: PRESENT: conjunctiva pink, EOMI, PERRLA. ABSENT: scleral icterus Ear exam: PRESENT: normal external ear exam Mouth exam: PRESENT: moist, tongue midline Neck exam: ABSENT: carotid bruit, JVD, lymphadenopathy, thyromegaly Respiratory exam: PRESENT: rhonchi. ABSENT: rales, wheezes Cardiovascular exam: PRESENT: RRR. ABSENT: diastolic murmur, rubs, systolic murmur Pulses: PRESENT: normal dorsalis pedis pul GI/Abdominal exam: PRESENT: normal bowel sounds, soft. ABSENT: distended, guarding, mass, organolmegaly, rebound, tenderness Rectal exam: PRESENT: deferred Neurological exam: PRESENT: alert, awake, oriented to person, oriented to place, oriented to time, oriented to situation, CN II-XII grossly intact. ABSENT: motor sensory deficit Results Laboratory Results: 01/02/19 07:36 01/02/19 07:36 01/02/19 01/02/19 01/02/19 07:36 07:36 07:36 WBC 21.5 H RBC 3.50 L Hgb 10.3 L Hct 31.3 L MCV 89 MCH 29.6 MCHC 33.1 RDW 14.1 H Plt Count 257 Seg Neutrophils % Not Reportable Lymphocytes % Not Reportable Monocytes % Not Reportable Eosinophils % Not Reportable Basophils % Not Reportable Absolute Neutrophils Not Reportable Absolute Lymphocytes Not Reportable Absolute Monocytes Not Reportable Absolute Eosinophils Not Reportable Absolute Basophils Not Reportable VBG pH VBG pCO2 VBG HCO3 VBG Base Excess Sodium 138.1 Potassium 5.0 Chloride 99 Carbon Dioxide 20 L Anion Gap 19 BUN 79 H Creatinine 11.29 H Est GFR ( Amer) 6 L Est GFR (Non-Af Amer) 5 L Glucose 248 H Lactic Acid 1.5 Calcium 9.1 Total Bilirubin 0.9 AST 25 ALT 43 Alkaline Phosphatase 87 Total Protein 6.8 Albumin 3.8 Urine Color Urine Appearance Urine pH Ur Specific [place] Urine Protein Urine Glucose (UA) Urine Ketones Urine Blood Urine Nitrite Ur Leukocyte Esterase Urine WBC (Auto) Urine RBC (Auto) 01/02/19 01/02/19 07:36 09:25 WBC RBC Hgb Hct MCV MCH MCHC RDW Plt Count Seg Neutrophils % Lymphocytes % Monocytes % Eosinophils % Basophils % Absolute Neutrophils Absolute Lymphocytes Absolute Monocytes Absolute Eosinophils Absolute Basophils VBG pH 7.42 VBG pCO2 33.6 L VBG HCO3 21.2 VBG Base Excess -2.3 Sodium Potassium Chloride Carbon Dioxide Anion Gap BUN Creatinine Est GFR ( Amer) Est GFR (Non-Af Amer) Glucose Lactic Acid Calcium Total Bilirubin AST ALT Alkaline Phosphatase Total Protein Albumin Urine Color JEANINE Urine Appearance CLOUDY Urine pH 5.0 Ur Specific [place] 1.019 Urine Protein >=500 H Urine Glucose (UA) 150 H Urine Ketones NEGATIVE Urine Blood MODERATE H Urine Nitrite NEGATIVE Ur Leukocyte Esterase NEGATIVE Urine WBC (Auto) 16 Urine RBC (Auto) 88 01/02/19 07:36 Troponin I 0.027 Impressions: Chest X-Ray 01/02/19 07:09 IMPRESSION: Left basilar heterogeneous opacity, which may reflect atelectasis and/or airspace disease and is similar to prior examination. Consider PA and lateral chest radiographs or CT given stated clinical concern for sepsis. Cardiomegaly. Assessment and Plan - Diagnosis (1) HCAP (healthcare-associated pneumonia) Is this a current diagnosis for this admission?: Yes Plan: He was given vancomycin and Zosyn in the ER. Will keep patient on vancomycin and cefepime. Orders for culture. (2) Nausea vomiting and diarrhea Is this a current diagnosis for this admission?: Yes Plan: Check for C. difficile. He HAs received 1 L of IV fluid bolus in the ER. Zofran as needed. (3) Acute renal failure superimposed on chronic kidney disease Qualifiers: Acute renal failure type: unspecified Chronic kidney disease stage: on chronic dialysis Qualified Code(s): N17.9 - Acute kidney failure, unspecified; N18.9 - Chronic kidney disease, unspecified; Z99.2 - Dependence on renal dialysis Is this a current diagnosis for this admission?: Yes Plan: Patient goes for dialysis MW and is supposed to get dialysis today. Will consult nephrology. (4) Diabetes mellitus type 2 in obese Is this a current diagnosis for this admission?: Yes Plan: Accu-Cheks. Sliding very well. (5) Hypertension Is this a current diagnosis for this admission?: Yes Plan: Resume home meds once verified. (6) Obstructive sleep apnea Is this a current diagnosis for this admission?: Yes Plan: CPAP at night. (7) Hemodialysis catheter infection Is this a current diagnosis for this admission?: Yes Plan: Continue IV antibiotics. Dr. Perla consulted for possible replacement of HD cath. - Time Time Spent with patient: 25-34 minutes
--- NOTE | 2019-01-02 11:31 | ADVANCED CARE ---
- Diagnosis (1) HCAP (healthcare-associated pneumonia) Diagnosis Current: Yes (2) Nausea vomiting and diarrhea Diagnosis Current: Yes (3) Acute renal failure superimposed on chronic kidney disease Diagnosis Current: Yes (4) COPD (chronic obstructive pulmonary disease) Diagnosis Current: Yes (5) Diabetes mellitus type 2 in obese Diagnosis Current: Yes (6) Hypertension Diagnosis Current: Yes Resuscitation Status: Full Code Discussion: Discussed with patient and at bedside. He says that he is a full code and prefers chest compressions, defibrillation and mechanical ventilation if the need arises. He says that his , Anay is his surrogate medical decision grey ralph.
--- NOTE | 2019-01-02 12:23 | RADIOLOGY REPORT (SQ) ---
EXAM DESCRIPTION: CT CHEST WITHOUT COMPLETED DATE/TIME: 01/02/2019 11:31 am REASON FOR STUDY: eval for pneumonia COMPARISON: Chest x-ray 01/02/2019 TECHNIQUE: CT scan performed of the chest without intravenous contrast. Images reviewed with lung, soft tissue and bone windows. Reconstructed coronal and sagittal MPR images reviewed. All images st ored on PACS. All CT scanners at this facility use dose modulation, iterative reconstruction, and/or weight based d osing when appropriate to reduce radiation dose to as low as reasonably achievable (ALARA). [facility]: Dose Right [facility]: CareDose [facility]: Dose Right [facility]: Teradose 4D [facility]: [employer] RADIATION DOSE: mGy. LIMITATIONS: No technical limitations. FINDINGS: LUNGS AND PLEURA: Small left pleural effusion. Subsegmental atelectasis in left lower lob e. Limited linear atelectasis in the left upper lobe. HILAR AND MEDIASTINAL STRUCTURES: No identified masses or abnormal nodes. No obvious aneurysm. HEART AND VASCULAR STRUCTURES: Pericardial effusion is present. This measures 18.6 mm in thickness a nteriorly on image 37. No aneurysm is present. There is moderate coronary atherosclerosis. UPPER ABDOMEN: No significant findings. Limited exam. THYROID AND OTHER SOFT TISSUES: No masses. No adenopathy. BONES: No significant finding. HARDWARE: Dual-lumen catheter. OTHER: No other significant findings. IMPRESSION: Mild atelectatic changes in the left lung. Significant pericardial effusion. TECHNICAL DOCUMENTATION: JOB ID: [id number] Quality ID # [id number]: Final reports with documentation of one or more dose reduction techniques (e.g., Au tomated exposure control, adjustment of the mA and/or kV according to patient size, use of iterative reconstruction technique) 2010 [employer]- All Rights Reserved Reading location - IP/workstation name: [email or web address]
[2019-01-02] MEDS ORDERED: HEPARIN SOD (PORCINE) 1,000 UNIT/ML 10 ML VIAL IV PRN ×2 (13:48→17:45)
[2019-01-02] MEDS ORDERED: CEFEPIME 1 GM/D5W RTU 1 GM/50 ML RTUPB IV SCH (14:00)
[2019-01-02] MEDS ORDERED: ALTEPLASE INJ 2 MG VIAL (CATH CLEARANCE) IV ONE (14:15)
--- NOTE | 2019-01-02 15:47 | PDOC CONSULTATION ---
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 He had apparently approximately an hour of dialysis at [facility] when he felt uncomfortable and and dialysis had to be therefore discontinued and patient transferred to the ER. Patient apparently has been having diarrhea for the last few days which is watery stools with no bl ood abdominal pains or fever or chills.Labs and medications were reviewed. Patient is now being seen while undergoing dialysis on the fourth floor.On further examination he is found to have an infected right IJ catheter exit site with purulent pus discharge. There is minimal redness. Is mildly tender.Review of his CT scan of his chest reveals he has significant pericardial effusion. Past Medical History Cardiac Medical History: Reports: Hyperlipidemia, Hypertension-primary Denies: Coronary Artery Disease, Myocardial Infarction Pulmonary Medical History: Reports: Asthma - Mild intermittent, PRN inhaler use for treatment, Chronic Obstructive Pulmonary Disease (COPD), Pneumonia, Sleep Apnea Denies: Bronchitis Neurological Medical History: Denies: Seizures Endocrine Medical History: Reports: Diabetes Mellitus Type 2 Denies: Diabetes Mellitus Type 1, Hyperthyroidism, Hypothyroidism Complications of Diabetes: Reports: Nephropathy Renal/ Medical History: Reports: End Stage Renal Disease, Secondary Hyperparathyroidism GI Medical History: Reports: Gastroesophageal Reflux Disease Denies: Cirrhosis, Hepatitis Musculoskeltal Medical History: Reports: Arthritis - hands, KNEES, Gout Skin Medical History: Reports: Eczema Psychiatric Medical History: Reports: Depression Hematology Medical History: Reports Anemia of Chronic Kidney Disease Past Surgical History Past Surgical History: Reports: Appendectomy, Nephrectomy - Left donated to his sister, Tonsillectomy, Vascular Surgery - PermCath placement for dialysis, Other - bilateral cataract extraction with insertion of lens Social History Smoking Status: Unknown if Ever Smoked Frequency of Alcohol Use: None Hx Recreational Drug Use: No Drugs: None Hx Prescription Drug Abuse: No - Advance Directive Resuscitation Status: Full Code Family History Parental Family History Reviewed: Yes - Negative for ESRD Children Family History Reviewed: No Sibling(s) Family History Reviewed.: No Medication/Allergy Home Medications: Albuterol Sulfate [Proair HFA Inhalation Aerosol 8.5 gm MDI] 2 puff IH Q6HP PRN 12/13/18 Amlodipine Besylate [Norvasc 10 mg Tablet] 10 mg PO DAILY 12/13/18 Atorvastatin Calcium [Lipitor 80 mg Tablet] 80 mg PO QHS 12/13/18 Calcium Acetate [Phoslo 667 mg Capsule] 2,001 mg PO MEALS 12/13/18 Doxazosin Mesylate [Cardura 4 mg Tablet] 4 mg PO DAILY 12/13/18 Gabapentin [Neurontin 100 mg Capsule] 100 mg PO Q8HP PRN 12/13/18 Hydroxyzine HCl [Atarax 25 mg Tablet] 12.5 mg PO Q8HP PRN 12/13/18 Insulin Aspart [Novolog Insulin (Aspart) 100 unit/mL] 0 unit SUBCUT .SLD SCALE 12/13/18 Metoprolol Tartrate [Lopressor 100 mg Tablet] 100 mg PO Q12 12/13/18 Minoxidil [Loniten 2.5 mg Tablet] 5 mg PO DAILY 12/13/18 Ropinirole HCl [Requip] 0.5 mg PO QHS 12/13/18 Allergies/Adverse Reactions: povidone-iodine [From Betadine] Allergy (Severe, Verified 12/12/18 12:11) Generalized rash Soap [From Betadine] Allergy (Severe, Verified 12/12/18 12:11) Generalized rash PAPER TAPE Allergy (Uncoded 12/12/18 12:11) Skin Redness Review of Systems Constitutional: PRESENT: fatigue, weakness. ABSENT: fever(s), headache(s), night sweats Nose, Mouth, and Throat: ABSENT: mouth pain, sore throat Cardiovascular: PRESENT: dyspnea on exertion. ABSENT: chest pain, edema, orthropnea, palpitations Gastrointestinal: PRESENT: abdominal pain, diarrhea. ABSENT: bloating, coffee ground emesis, dysphagia, heartburn, hematemesis, hematochezia Genitourinary: ABSENT: dysuria, hematuria Musculoskeletal: ABSENT: deformity, joint swelling Integumentary: ABSENT: erythema, lesions, pruritus, rash Neurological: ABSENT: abnormal speech, confusion, convulsions, focal weakness, lack of coordination Endocrine: ABSENT: cold intolerance Hematologic/Lymphatic: ABSENT: easy bleeding, easy bruising, lymphadenopathy Physical Exam Vital Signs: Temp Pulse Resp BP Pulse Ox 99.1 F 103 H 22 H 135/71 H 99 01/02/19 12:49 01/02/19 12:49 01/02/19 12:49 01/02/19 12:49 01/02/19 12:49 Intake & Output 01/01/19 01/02/19 01/03/19 06:59 06:59 06:59 Intake Total 1000 Balance 1000 Weight 105 kg General appearance: PRESENT: no acute distress Exam: He seems to be always very vague when you talk to him and there is a delay in his supplies. He always replies like he has got minimal amount of mental retardation. This is not something new. Eye exam: PRESENT: EOMI, PERRLA Mouth exam: PRESENT: moist, neck supple Neck exam: ABSENT: lymphadenopathy, meningismus, tenderness, thyromegaly, tracheal deviation Respiratory exam: PRESENT: clear to auscultation octavia. ABSENT: crackles GI/Abdominal exam: PRESENT: normal bowel sounds, soft. ABSENT: organomegaly, tenderness Extremities exam: PRESENT: pedal edema Neurological exam: PRESENT: alert, awake, oriented to person, oriented to place, oriented to time Psychiatric exam: PRESENT: appropriate affect Skin exam: ABSENT: erythema, mottled, rash Results Laboratory Results: 01/02/19 07:36 01/02/19 07:36 01/02/19 01/02/19 01/02/19 07:36 07:36 07:36 WBC 21.5 H RBC 3.50 L Hgb 10.3 L Hct 31.3 L MCV 89 MCH 29.6 MCHC 33.1 RDW 14.1 H Plt Count 257 Seg Neutrophils % Not Reportable Lymphocytes % Not Reportable Monocytes % Not Reportable Eosinophils % Not Reportable Basophils % Not Reportable Absolute Neutrophils Not Reportable Absolute Lymphocytes Not Reportable Absolute Monocytes Not Reportable Absolute Eosinophils Not Reportable Absolute Basophils Not Reportable VBG pH VBG pCO2 VBG HCO3 VBG Base Excess Sodium 138.1 Potassium 5.0 Chloride 99 Carbon Dioxide 20 L Anion Gap 19 BUN 79 H Creatinine 11.29 H Est GFR ( Amer) 6 L Est GFR (Non-Af Amer) 5 L Glucose 248 H Lactic Acid 1.5 Calcium 9.1 Total Bilirubin 0.9 AST 25 ALT 43 Alkaline Phosphatase 87 Total Protein 6.8 Albumin 3.8 Urine Color Urine Appearance Urine pH Ur Specific [place] Urine Protein Urine Glucose (UA) Urine Ketones Urine Blood Urine Nitrite Ur Leukocyte Esterase Urine WBC (Auto) Urine RBC (Auto) 01/02/19 01/02/19 07:36 09:25 WBC RBC Hgb Hct MCV MCH MCHC RDW Plt Count Seg Neutrophils % Lymphocytes % Monocytes % Eosinophils % Basophils % Absolute Neutrophils Absolute Lymphocytes Absolute Monocytes Absolute Eosinophils Absolute Basophils VBG pH 7.42 VBG pCO2 33.6 L VBG HCO3 21.2 VBG Base Excess -2.3 Sodium Potassium Chloride Carbon Dioxide Anion Gap BUN Creatinine Est GFR ( Amer) Est GFR (Non-Af Amer) Glucose Lactic Acid Calcium Total Bilirubin AST ALT Alkaline Phosphatase Total Protein Albumin Urine Color JEANINE Urine Appearance CLOUDY Urine pH 5.0 Ur Specific [place] 1.019 Urine Protein >=500 H Urine Glucose (UA) 150 H Urine Ketones NEGATIVE Urine Blood MODERATE H Urine Nitrite NEGATIVE Ur Leukocyte Esterase NEGATIVE Urine WBC (Auto) 16 Urine RBC (Auto) 88 01/02/19 07:36 Troponin I 0.027 Impressions: Chest X-Ray 01/02/19 07:09 IMPRESSION: Left basilar heterogeneous opacity, which may reflect atelectasis and/or airspace disease and is similar to prior examination. Consider PA and lateral chest radiographs or CT given stated clinical concern for sepsis. Cardiomegaly. Chest CT 01/02/19 11:12 IMPRESSION: Mild atelectatic changes in the left lung. Significant pericardial effusion. Assessment & Plan - Diagnosis (1) Pericardial effusion Plan: Given his clinical signs he does not look to have tamponade physiology. We will try to dialyze him daily to see if that can make a difference. He might ultimately need to have pericardiocentesis. Would recommend cardiology consultation to get their opinion on this patient. I would not definitely not use minoxidil nor would I use hydralazine in this patient given the propensity for both these drugs to cause pericardial effusion. (2) Infection of exit site of hemodialysis catheter Plan: Cultures have been done. Patient being dose of vancomycin and cefepime. If he is growing especially gram-negative bacteria that one might have to consider to have the catheter exchange. Patient otherwise showed showing early sepsis but no signs of severe decompensation. Continue to monitor. (3) End-stage renal disease on hemodialysis Plan: Patient currently undergoing dialysis. Dialysis orders have been placed in earlier. Dialysis is being supervised to ensure safe and smooth procedure. Plan to remove it in 2-3 L as tolerated. Plan to put him on daily dialysis given his pericardial effusion. Dialysis is being supervised to ensure safe and smooth procedure. Dialysis orders were reviewed with the treating dialysis nurse. (4) Hemodialysis catheter malfunction Plan: Dialysis catheter was malfunctioning. TPA has been instilled and will see if that will succeed. If not will have to have the cath exchanged in house. (5) Hypertension Is this a current diagnosis for this admission?: Yes Plan: Uncontrolled see response to dialysis and medications. (6) Obstructive sleep apnea Is this a current diagnosis for this admission?: Yes Plan: Needs CPAP (7) Renal mass Plan: Right lower. Multiple appointments have been made for this patient and multiple discussions have been done with initially with a sister and also with the patient and his on numerous occasions. Unfortunately they have not kept the appointments for what ever reason. (8) Type 2 diabetes mellitus Plan: Advised tight control. (9) Sepsis Plan: Bowling cultures have been drawn. Antibiotics have been ordered. Follow-up on the results. To make decisions of whether we need to have a catheter exchange based on the culture results.
[2019-01-02] MEDS: INSULIN LISPRO 100 UNIT/ML 3 ML VIAL SUBCUT SCH ×2 (16:01→22:06)
[2019-01-02] MEDS ORDERED: VANCOMYCIN HCL 750 MG in DEXTROSE 5%-WATER 250 ML IV ONE (18:00)
[2019-01-02] MEDS ORDERED: ACETAMINOPHEN 325 MG TABLET PO PRN (18:38)
[2019-01-02] MEDS: CEFEPIME 1 GM/D5W RTU 1 GM/50 ML RTUPB IV SCH (21:27)
[2019-01-02] MEDS: HEPARIN SOD (PORCINE) 5,000 UNIT/ML 1 ML VIAL SUBCUT SCH (22:01)
[2019-01-03] MEDS ORDERED: DILTIAZEM HCL INJ 25 MG/5 ML VIAL IV ONE (02:00)
[2019-01-03] MEDS ORDERED: NORMAL SALINE 500 ML IV ONE (02:00)
[2019-01-03] MEDS ORDERED: DILTIAZEM HCL INJ 25 MG/5 ML VIAL ONE (02:03)
[2019-01-03 02:54] LABS: ABSOLUTE BASOPHILS # (AUTO) 0.1 10^3/uL (0.0-0.2); ABSOLUTE LYMPHOCYTES (AUTO) 1.8 10^3/uL (0.5-4.7); ABSOLUTE MONOCYTES (AUTO) 1.5 10^3/uL (0.1-1.4); ABSOLUTE NEUT (AUTO) 15.4 10^3/uL (1.7-8.2); BASOPHILS % (AUTO) 0.3 % (0-2); HEMATOCRIT 28.4 % (37.9-51.0); HEMOGLOBIN 9.4 g/dL (13.5-17.0); LYMPHOCYTES % (AUTO) 9.6 % (13-45); MEAN CORPUSCULAR HEMOGLOBIN 29.7 pg (27.0-33.4); MEAN CORPUSCULAR VOLUME 90 fl (80-97); MONOCYTES % (AUTO) 7.8 % (3-13); PLATELET COUNT 193 10^3/uL (150-450); RED BLOOD COUNT 3.16 10^6/uL (4.35-5.55); RED CELL DISTRIBUTION WIDTH 14.3 % (11.5-14.0); SEGMENTED NEUTROPHILS % (AUTO) 82.3 % (42-78); TOTAL CELLS COUNTED % (AUTO) 100 %; WHITE BLOOD COUNT 18.7 10^3/uL (4.0-10.5)
[2019-01-03 03:16] LABS: ANION GAP 17 (5-19); BLOOD UREA NITROGEN 73 mg/dL (7-20); CALCIUM 8.8 mg/dL (8.4-10.2); CARBON DIOXIDE 20 mmol/L (22-30); CHLORIDE 101 mmol/L (98-107); GLUCOSE 195 mg/dL (75-110); POTASSIUM 4.6 mmol/L (3.6-5.0)
[2019-01-03 03:27] LABS: CREATINE KINASE MB 1.51 ng/mL (<4.55); TROPONIN I 0.04 ng/mL
[2019-01-03] MEDS ORDERED: DILTIAZEM HCL/D5W 125 MG/125 ML RTUINJ IV ONE (03:37)
[2019-01-03] MEDS: ONDANSETRON HCL INJ/PF 4 MG/2 ML SDV IV PRN ×2 (03:45→20:20)
[2019-01-03 10:01] LABS: CREATINE KINASE MB 1.98 ng/mL (<4.55); TROPONIN I 0.029 ng/mL
[2019-01-03] MEDS ORDERED: ALTEPLASE INJ 2 MG VIAL (CATH CLEARANCE) IV ONE (10:17)
[2019-01-03] MEDS ORDERED: LIDOCAINE 1% INJ-PF (10 MG/ML) 30 ML SDV ONE (11:16)
--- NOTE | 2019-01-03 12:00 | OPERATIVE REPORT E ---
Operative Report NAME: CLARI TSAI JR : 1960 AGE: 58Y DATE OF SURGERY: 01/03/2019 ROOM: 608 PREOPERATIVE DIAGNOSIS: PATIENT WITH NONFUNCTIONING PERMA-CATH FOR HEMODIALYSIS. POSTOPERATIVE DIAGNOSIS: PATIENT WITH NONFUNCTIONING PERMA-CATH FOR HEMODIALYSIS. OPERATION: Placement of dialysis catheter via the right femoral vein under ultrasound guidance. SURGEON: YAHAIRA GOSS M.D. ANESTHESIA: Local. PROCEDURE: Patient was placed in supine position, the right groin prepped and draped in the usual sterile fashion. With the use of the ultrasound, the right common femoral vein was then identified. Local anesthesia infiltrated over the skin and the right femoral vein was then subsequently punctured and blood noted to come out. It is non-pulsatile and dark. Guidewire passed through the needle towards the area of the inferior vena cava and the needle removed. Puncture site dilated. A dialysis catheter was inserted through the guidewire to a distance of about 29 cm. All of the ports of the guidewire easily aspirated blood and infused saline easily. The catheter was then anchored to the skin with 3-0 Nylon. Biopatch placed over the insertion site and a transparent dressing placed over the Biopatch and catheter. Patient tolerated procedure well. Patient will have dialysis today. I will then remove the left Perma-Cath which may be infected. DICTATING PHYSICIAN: YAHAIRA GOSS M.D. [id number] PHY#: [id number] ID: [id number] JOB#: [id number] ACCT: [id number] cc:YAHAIRA GOSS M.D. >
[2019-01-03] MEDS: DILTIAZEM HCL/D5W 125 MG/125 ML RTUINJ IV PRN ×2 (12:21→19:20)
--- NOTE | 2019-01-03 12:40 | OPERATIVE REPORT E ---
Operative Report NAME: CLARI TSAI JR : 1960 AGE: 58Y DATE OF SURGERY: 01/03/2019 ROOM: 608 PREOPERATIVE DIAGNOSIS: INFECTED LEFT CHEST PERMA-CATH. POSTOPERATIVE DIAGNOSIS: INFECTED LEFT CHEST PERMA-CATH. OPERATION: Removal of infected left Perma-Cath. SURGEON: YAHAIRA GOSS M.D. ANESTHESIA: Local. INDICATIONS: This is a 58-year-old male on hemodialysis. The right femoral hemodialysis was just placed and now we are removing the left chest Perma-Cath that appears to be infected. Also, this catheter has been obstructed. PROCEDURE: Patient was placed in supine position and the left chest prepped and draped in the usual sterile fashion. Local anesthesia infiltrated over the mid part of the clavicle. Next, a transverse incision was made over the catheter and part of the catheter was then dissected off the subcutaneous tissue. Next, a 3-0 Nylon on the big needle was then sutured just above the felt part on the catheter going beneath the catheter and outside other side. After the catheter was pulled out and the tip cut for [employer], the suture was then ligated over the skin to prevent back bleeding. Next, a couple of sutures using same 3-0 nylon were placed above the large suture of the suture with the bigger needle and also another one just below it, closing the incision site and occluding any bleeders. After hemostasis noted, a sterile dressing was placed over the insertion site of the catheter and over the wound. A transparent sterile dressing placed over the dressing. Patient tolerated procedure well. Estimated blood loss less than 5 mL. DICTATING PHYSICIAN: YAHAIRA GOSS M.D. [id number] PHY#: [id number] ID: [id number] JOB#: [id number] ACCT: [id number] cc:YAHAIRA GOSS M.D. >
--- NOTE | 2019-01-03 13:42 | EKG REPORT ---
SEVERITY:- ABNORMAL ECG - ATRIAL FIBRILLATION, WITH RVR INFERIOR INFARCT, AGE INDETERMINATE BORDERLINE R WAVE PROGRESSION, ANTERIOR LEADS : Confirmed by: Genoveva Whalen 03-Jan-2019 13:41:13
--- NOTE | 2019-01-03 15:04 | XCELERA REPORT ---
[address] [address] Transthoracic Echocardiogram Report Name: EULALIO CLARI RHODES JR Age: 58 yrs Gender: Male : 1960 Patient Status: Inpatient Patient Location: ICU^608^A Study Date: 01/03/2019 09:16 AM Height: 72 in Weight: 231 lb BSA: 2.3 m2 Procedure: A two-dimensional transthoracic echocardiogram with color flow and Doppler was performed. The study was technically difficult with many images being suboptimal in quality. Reason For Study: pericardial effusion History: pericardial effusion. Ordering Physician: SHAYLEE LINDSAY Performed By: Marilyn Angeles Interpretation Summary The left ventricle is normal in size. There is mild concentric left ventricular hypertrophy. LV EF is 70% Left ventricular systolic function is normal. The left ventricular wall motion is normal. There is no thrombus. The right ventricle is grossly normal size. The right atrium is normal. The left atrial size is normal. There is no evidence of mitral valve prolapse. There is no vegetation seen on the mitral valve. There is no mitral valve stenosis. There is no mitral regurgitation noted. There is no aortic valvular vegetation. There is aortic sclerosis without aortic stenosis. There is no LVOT obstruction. No aortic regurgitation is present. There is no tricuspid stenosis. There is a trace to mild amount of tricuspid regurgitation There is mild pulmonary hypertension by echo RVSP is 42 mm of Hg , with RA mean of 10. No defenite ASD,VSdD. or PFO. There is no pulmonic valvular stenosis. There is no pulmonic valvular regurgitation. The aortic root is normal size. Small to moderate pericardial effusion. The effusion is circumferential.No echo or doppler evidence of tamponade.Corelate clinically. MMode/2D Measurements & Calculations RVDd: 3.1 cm LVIDd: 4.3 cm FS: 41.4 % Ao root diam: 3.5 cm IVSd: 1.2 cm LVIDs: 2.5 cm EDV(Teich): LVPWd: 1.3 cm 83.9 ml Ao root area: ESV(Teich): 9.4 cm2 23.0 ml EF(Teich): 72.6 % EDV(MOD-sp4): SV(MOD-sp4): 126.6 ml 66.8 ml ESV(MOD-sp4): 59.8 ml EF(MOD-sp4): 52.8 % Doppler Measurements & Calculations Ao V2 max: LV V1 max PG: PA V2 max: TR max saúl: 145.3 cm/sec 6.7 mmHg 136.1 cm/sec 282.7 cm/sec Ao max P.4 mmHgLV V1 max: PA max P.4 mmHgTR max P.0 mmHg 129.0 cm/sec Left Ventricle The left ventricle is normal in size. There is mild concentric left ventricular hypertrophy. LV EF is 70%. Left ventricular systolic function is normal. LV diastolic function could not be adequately assessed due to atrial fibrilation. The left ventricular wall motion is normal. There is no thrombus. No defenite ASD,VSdD. or PFO. Right Ventricle The right ventricle is grossly normal size. The right ventricle is not well visualized secondary to technical limitations. Atria The right atrium is normal. The left atrial size is normal. Mitral Valve There is no evidence of mitral valve prolapse. There is no vegetation seen on the mitral valve. There is no mitral valve stenosis. There is no mitral regurgitation noted. Aortic Valve There is no aortic valvular vegetation. There is aortic sclerosis without aortic stenosis. There is no LVOT obstruction. No aortic regurgitation is present. Tricuspid Valve There is no tricuspid stenosis. There is a trace to mild amount of tricuspid regurgitation. There is mild pulmonary hypertension by echo. RVSP is 42 mm of Hg , with RA mean of 10. Pulmonic Valve There is no pulmonic valvular stenosis. There is no pulmonic valvular regurgitation. Great Vessels The aortic root is normal size. Effusions Small to moderate pericardial effusion. The effusion is circumferential.No echo or doppler evidence of tamponade.Corelate clinically. : SHAYLEE LINDSAY > Melisa Ellis
[2019-01-03 15:21] LABS: CREATINE KINASE MB 1.74 ng/mL (<4.55); TROPONIN I 0.021 ng/mL
--- NOTE | 2019-01-03 15:46 | PDOC PROGRESS REPORT ---
Subjective Progress Note for:: 01/03/19 Reason For Visit: Patient seen today in the ICU. Patient has been transferred to the ICU given the fact that he had decompensated atrial fibrillation and has been begun on IV Cardizem drip. His blood pressure is in the low 100 systolics. Patient denies any history of chest pain or shortness of breath. He however says he states that he is a bit uncomfortable in the chest. No radiation into the neck or arms. No precipitating or relieving factors. Patient on admission yesterday had a CT scan that that found to have significant pleural effusion. An echocardiogram was ordered and I discussed with Dr. Ellis which shows that the echo findings were suggestive of a small to moderate pericardial effusion with no cardiac tamponade physiology. Patient currently undergoing dialysis with a qB/qD of 250/600. The dialysis orders were reviewed with the treating dialysis nurse to ensure that we do not drop the patient's blood pressure given his moderate pericardial effusion for obvious reasons. Therefore we also not going to draw any fluid off him. Cardizem drip is being tapered down to allow systolics to come up to and into the 120s while undergoing dialysis. Discussed the case with Dr. Dunham/hospitalist and as well as requesting a cardiology consult. Labs and medications were reviewed with the patient and the treating dialysis nurse. Physical Exam Vital Signs: Temp Pulse Resp BP Pulse Ox 98.5 F 88 18 141/68 H 96 01/03/19 12:00 01/03/19 12:00 01/03/19 14:53 01/03/19 14:53 01/03/19 14:53 Intake & Output 01/02/19 01/03/19 01/04/19 06:59 06:59 06:59 Intake Total 1677 120 Output Total 1600 Balance 77 120 Weight 118.6 kg General appearance: PRESENT: no acute distress Respiratory exam: PRESENT: clear to auscultation octavia. ABSENT: crackles Cardiovascular exam: PRESENT: +S1, +S2 GI/Abdominal exam: PRESENT: normal bowel sounds, soft. ABSENT: organomegaly, tenderness Extremities exam: PRESENT: pedal edema Neurological exam: PRESENT: alert, awake, oriented to person, oriented to place Psychiatric exam: PRESENT: appropriate affect Skin exam: ABSENT: erythema, mottled, rash Results Laboratory Results: 01/03/19 02:47 01/03/19 02:47 01/03/19 01/03/19 02:47 02:47 WBC 18.7 H RBC 3.16 L Hgb 9.4 L Hct 28.4 L MCV 90 MCH 29.7 MCHC 33.0 RDW 14.3 H Plt Count 193 Seg Neutrophils % 82.3 H Lymphocytes % 9.6 L Monocytes % 7.8 Eosinophils % 0.0 Basophils % 0.3 Absolute Neutrophils 15.4 H Absolute Lymphocytes 1.8 Absolute Monocytes 1.5 H Absolute Eosinophils 0.0 Absolute Basophils 0.1 Sodium 138.3 Potassium 4.6 Chloride 101 Carbon Dioxide 20 L Anion Gap 17 BUN 73 H Creatinine 10.09 H Est GFR ( Amer) 6 L Est GFR (Non-Af Amer) 5 L Glucose 195 H Calcium 8.8 01/02/19 01/03/19 01/03/19 07:36 02:47 02:47 Creatine Kinase 77 CK-MB (CK-2) 1.51 Troponin I 0.027 0.040 01/03/19 01/03/19 01/03/19 08:59 08:59 14:36 Creatine Kinase 78 63 CK-MB (CK-2) 1.98 Troponin I 0.029 01/03/19 14:36 Creatine Kinase CK-MB (CK-2) 1.74 Troponin I 0.021 Impressions: Chest X-Ray 01/02/19 07:09 IMPRESSION: Left basilar heterogeneous opacity, which may reflect atelectasis and/or airspace disease and is similar to prior examination. Consider PA and lateral chest radiographs or CT given stated clinical concern for sepsis. Cardiomegaly. Chest CT 01/02/19 11:12 IMPRESSION: Mild atelectatic changes in the left lung. Significant pericardial effusion. Assessment & Plan - Diagnosis (1) Pericardial effusion Plan: Patient was found to have pericardial effusion yesterday on CT scan which was deemed significant. An echocardiogram done today and read by Dr. Ellis states is mild to moderate with no cardiac tamponade physiology which is very fortunate. Patient is being subjected to daily dialysis therefore. Will dialyze on on low blood flow rate keeping the vital signs closely monitored. Reason for pericardial effusion could be the fact that patient has been in the past noncompliant and there could be an uremic element as well as the fact the p atient was on long-term minoxidil which has been discontinued. Monitor carefully for acute tamponade physiology. Please also maintain blood pressure while he is on IV Cardizem and not allow her to drop too low in the face of moderate effusion.We will remove no fluid on ultrafiltration today. Discussed with the treating dialysis nurse. (2) Infection of exit site of hemodialysis catheter Plan: The catheter site was removed today on request by Dr. Hodges and a temporary dialysis catheter was placed in the groin which is being used for dialysis today. The dialysis tip is being sent for blood cultures. Blood cultures already positive for gram-positive cocci.Patient is already on cefepime and vancomycin. (3) End-stage renal disease on hemodialysis Plan: Patient is currently undergoing dialysis being carefully monitored given the fact that he has small to moderate pericardial effusion. Vital signs are stable after tapering down on the diltiazem drip for his A. fib. Dialysis is being supervised to ensure safe and smooth procedure.Discussed extensively with the dialysis nurse about keeping blood pressures closely monitored given his moderate-sized pericardial effusion. We will plan to remove no fluid today. (4) Hemodialysis catheter malfunction Plan: Catheter failed to respond to instillation of TPA yesterday. Besides that he also had exit site infection leading to bacteremia and the catheter was removed this morning. Continue antibiotics. Monitor carefully for sepsis deterioration. (5) Hypertension Is this a current diagnosis for this admission?: Yes Plan: Presently controlled since she is on diltiazem drip as well for his A. fib. (6) Obstructive sleep apnea Is this a current diagnosis for this admission?: Yes Plan: As per hospitalist. (7) Renal mass Plan: He needs work-up for this and for possible renal biopsy. Patient has however has not kept appointments in the past. This needs to be looked at once he is discharged again. (8) Type 2 diabetes mellitus Plan: Advised tight control. (9) Sepsis Plan: Monitor leukocytosis and clinical symptoms. Should improve since his infected catheter has been removed.
--- NOTE | 2019-01-03 16:41 | PDOC PROGRESS REPORT ---
Subjective Progress Note for:: 01/03/19 Subjective:: No adverse events overnight. No new complaints. Vital signs been stable. He is tolerating his antibiotics. He had his dialysis catheter removed and a new one placed today. He is on a Cardizem drip for atrial fibrillation with RVR. Heart rate has been in the 90s and systolic blood pressure has been in the 120s and 130s. He has no complaints at this time. He says he feels pretty good. He received dialysis today and tolerated it well. Reason For Visit: ACUTE ON CHRONIC RENAL FAILURE,ACUTE ON CHRONIC Physical Exam Vital Signs: Temp Pulse Resp BP Pulse Ox 98.1 F 107 H 18 141/68 H 97 01/03/19 14:00 01/03/19 16:15 01/03/19 16:15 01/03/19 14:53 01/03/19 16:15 Intake & Output 01/02/19 01/03/19 01/04/19 06:59 06:59 06:59 Intake Total 1677 420 Output Total 1600 Balance 77 420 Weight 118.6 kg General appearance: PRESENT: no acute distress, cooperative, disheveled, obese Respiratory exam: PRESENT: clear to auscultation octavia, symmetrical, unlabored. ABSENT: accessory muscle use, chest wall tenderness, crackles, prolonged expiratory phas, rales, rhonchi, tachypnea, wheezes Cardiovascular exam: PRESENT: irregular rhythm Pulses: PRESENT: normal carotid pulses Vascular exam: PRESENT: normal capillary refill GI/Abdominal exam: PRESENT: normal bowel sounds, soft. ABSENT: distended, guarding, rebound, tenderness Extremities exam: ABSENT: clubbing, pedal edema Musculoskeletal exam: PRESENT: normal inspection. ABSENT: deformity Neurological exam: PRESENT: alert, awake, oriented to person, oriented to place, oriented to situation Psychiatric exam: PRESENT: flat affect Skin exam: PRESENT: dry, warm, other - Some erythema noted around the old dialysis catheter site Results Laboratory Results: 01/03/19 02:47 01/03/19 02:47 01/03/19 01/03/19 02:47 02:47 WBC 18.7 H RBC 3.16 L Hgb 9.4 L Hct 28.4 L MCV 90 MCH 29.7 MCHC 33.0 RDW 14.3 H Plt Count 193 Seg Neutrophils % 82.3 H Lymphocytes % 9.6 L Monocytes % 7.8 Eosinophils % 0.0 Basophils % 0.3 Absolute Neutrophils 15.4 H Absolute Lymphocytes 1.8 Absolute Monocytes 1.5 H Absolute Eosinophils 0.0 Absolute Basophils 0.1 Sodium 138.3 Potassium 4.6 Chloride 101 Carbon Dioxide 20 L Anion Gap 17 BUN 73 H Creatinine 10.09 H Est GFR ( Amer) 6 L Est GFR (Non-Af Amer) 5 L Glucose 195 H Calcium 8.8 01/02/19 01/03/19 01/03/19 07:36 02:47 02:47 Creatine Kinase 77 CK-MB (CK-2) 1.51 Troponin I 0.027 0.040 01/03/19 01/03/19 01/03/19 08:59 08:59 14:36 Creatine Kinase 78 63 CK-MB (CK-2) 1.98 Troponin I 0.029 01/03/19 14:36 Creatine Kinase CK-MB (CK-2) 1.74 Troponin I 0.021 Impressions: Chest X-Ray 01/02/19 07:09 IMPRESSION: Left basilar heterogeneous opacity, which may reflect atelectasis and/or airspace disease and is similar to prior examination. Consider PA and lateral chest radiographs or CT given stated clinical concern for sepsis. Cardiomegaly. Chest CT 01/02/19 11:12 IMPRESSION: Mild atelectatic changes in the left lung. Significant pericardial effusion. Assessment and Plan - Diagnosis (1) HCAP (healthcare-associated pneumonia) Is this a current diagnosis for this admission?: Yes Plan: Currently on broad-spectrum antibiotics, cultures pending (2) Infection of exit site of hemodialysis catheter Is this a current diagnosis for this admission?: Yes Plan: The old one has been removed and sent for culture, a new dialysis catheter has been placed, continues on broad-spectrum antibiotics (3) Nausea vomiting and diarrhea Is this a current diagnosis for this admission?: Yes Plan: Now resolved (4) Pericardial effusion Is this a current diagnosis for this admission?: Yes Plan: Minoxidil has been discontinued. I spoke to Dr. Cosmo Perla about whether or not this patient would need a pericardiocentesis. He recommended against it at this time since he felt like it was more likely to be uremic in origin and should respond well to aggressive dialysis. He said that if he would be at risk for tamponade, it would likely happen during dialysis. He said that if it does happen, we should stop dialysis, give him some fluids, and then transfer him (5) End-stage renal disease on hemodialysis Is this a current diagnosis for this admission?: Yes Plan: Dr. Steele was consulted (6) Atrial fibrillation with RVR Is this a current diagnosis for this admission?: Yes Plan: Were weaning the Cardizem drip, currently rate controlled with a good blood pressure. - Time Time Spent with patient: 35 or more minutes
--- NOTE | 2019-01-03 16:57 | RADIOLOGY REPORT (SQ) ---
EXAM DESCRIPTION: REMOVAL CENTRAL TUNNELED LINE COMPLETED DATE/TIME: 01/03/2019 12:15 pm REASON FOR STUDY: INSERTION OF TRIALYSIS CATH/ REMOVAL PERM CATH COMPARISON: None. FLUOROSCOPY TIME: None. Spot images saved to PACS. TECHNIQUE: Intra-operative images acquired during surgical procedure to evaluate progress. NUMBER OF IMAGES: 1 LIMITATIONS: None. FINDINGS: Ultrasound was utilized for intraoperative procedure. Please refer to the operative repor t for further discussion. IMPRESSION: IMAGE(S) OBTAINED DURING PROCEDURE. COMMENT: Quality ID [id number]: Final reports for procedures using fluoroscopy that document radiation exp osure indices, or exposure time and number of fluorographic images (if radiation exposure indices are not available) Please consult full operative report of the attending physician for description of the procedure. TECHNICAL DOCUMENTATION: JOB ID: [id number] [employer]- All Rights Reserved Reading location - IP/workstation name: [email or web address]
--- NOTE | 2019-01-03 16:59 | RADIOLOGY REPORT (SQ) ---
EXAM DESCRIPTION: NON-TUNNEL CV CATH COMPLETE DATE/TIME: 01/03/2019 12:15 pm REASON FOR STUDY: INSERTION OF TRIALYSIS CATH/ REMOVAL PERM CATH FINDINGS: Please see combined report for performance of procedure and radiologic supervision and int erpretation. IMPRESSION: Please see combined report for performance of procedure and radiologic supervision and i nterpretation. Reading location - IP/workstation name: [email or web address]
[2019-01-03] MEDS: INSULIN LISPRO 100 UNIT/ML 3 ML VIAL SUBCUT SCH ×3 (17:10→22:03)
[2019-01-03] MEDS: HEPARIN SOD (PORCINE) 5,000 UNIT/ML 1 ML VIAL SUBCUT SCH ×2 (17:11→22:03)
[2019-01-03] MEDS: CEFEPIME 1 GM/D5W RTU 1 GM/50 ML RTUPB IV SCH (22:04)
[2019-01-03] MEDS ORDERED: LOPERAMIDE HCL 2 MG CAPSULE PO PRN (23:19)
[2019-01-03] MEDS: GABAPENTIN 100 MG CAPSULE PO PRN (23:28)
[2019-01-03] MEDS: DILTIAZEM HCL 90 MG TABLET PO SCH (23:28)
[2019-01-03] MEDS ORDERED: LOPERAMIDE HCL 2 MG CAPSULE PO ONE (23:30)
[2019-01-04 04:38] LABS: HEMATOCRIT 25.4 % (37.9-51.0); HEMOGLOBIN 8.6 g/dL (13.5-17.0); MEAN CORPUSCULAR HEMOGLOBIN 30.3 pg (27.0-33.4); MEAN CORPUSCULAR HGB CONC 33.9 g/dL (32.0-36.0); MEAN CORPUSCULAR VOLUME 90 fl (80-97); PLATELET COUNT 179 10^3/uL (150-450); RED BLOOD COUNT 2.83 10^6/uL (4.35-5.55); RED CELL DISTRIBUTION WIDTH 14.2 % (11.5-14.0); WHITE BLOOD COUNT 10.6 10^3/uL (4.0-10.5)
[2019-01-04] MEDS ORDERED: EPOETIN ALFA INJ 20000 UNIT/1 ML VIAL (RENAL) IV PRN (05:00)
[2019-01-04] MEDS ORDERED: EPOETIN ALFA-EPBX 10,000 UNIT in SYRINGE, DISPOSABLE, 1 EACH IV PRN (05:00)
[2019-01-04 05:03] LABS: ANION GAP 13 (5-19); BLOOD UREA NITROGEN 59 mg/dL (7-20); CALCIUM 8.3 mg/dL (8.4-10.2); CARBON DIOXIDE 26 mmol/L (22-30); CHLORIDE 99 mmol/L (98-107); GLUCOSE 161 mg/dL (75-110); POTASSIUM 3.9 mmol/L (3.6-5.0)
[2019-01-04 05:09] LABS: VANCOMYCIN,TROUGH 11.2 ug/mL (5.0-20.0)
[2019-01-04] MEDS: DILTIAZEM HCL 90 MG TABLET PO SCH ×3 (06:45→18:05)
[2019-01-04] MEDS ORDERED: HYDROXYZINE HCL 2 MG/ML SYRUP 60 ML PO PRN (07:34)
[2019-01-04] MEDS: INSULIN LISPRO 100 UNIT/ML 3 ML VIAL SUBCUT SCH ×4 (08:51→21:35)
[2019-01-04] MEDS: HEPARIN SOD (PORCINE) 5,000 UNIT/ML 1 ML VIAL SUBCUT SCH ×2 (09:56→21:35)
[2019-01-04] MEDS: CALCIUM ACETATE 667 MG CAPSULE PO SCH ×2 (15:39→16:37)
--- NOTE | 2019-01-04 16:16 | PDOC PROGRESS REPORT ---
Subjective Progress Note for:: 01/04/19 Reason For Visit: Patient seen on dialysis today in the ICU. He is more awake alert than any of the previous times that I can recall. In fact he does remember the dressing changes I had made since yesterday which was a keen observation on his part. His appetite is improving. His who is at the bedside is happy with the progress he is making and he seems to be aware of his medical conditions and would like to pursue AV fistula as well as follow-up on the renal tumor/possible biopsy at [facility]. Labs and medications were reviewed with the patient.I also had a discussion with Dr. Andie Perla for placement of a PermCath either or Wednesday so that he can be discharged for continuation of daily dialysis to the outpatient setting. Physical Exam Vital Signs: Temp Pulse Resp BP Pulse Ox 98.1 F 94 17 136/90 H 96 01/04/19 12:00 01/04/19 14:00 01/04/19 15:14 01/04/19 15:14 01/04/19 15:14 Intake & Output 01/03/19 01/04/19 01/05/19 06:59 06:59 06:59 Intake Total 1727 803 Output Total 1600 200 15 Balance 127 603 -15 Weight 118.6 kg 118.1 kg General appearance: PRESENT: no acute distress Respiratory exam: PRESENT: clear to auscultation octavia. ABSENT: crackles Cardiovascular exam: PRESENT: +S1, +S2 GI/Abdominal exam: PRESENT: normal bowel sounds, soft. ABSENT: organomegaly, tenderness Extremities exam: PRESENT: pedal edema Neurological exam: PRESENT: alert, awake, oriented to person, oriented to place Psychiatric exam: PRESENT: appropriate affect Skin exam: ABSENT: cyanosis, erythema, mottled, rash Results Laboratory Results: 01/04/19 04:18 01/04/19 04:18 01/04/19 01/04/19 04:18 04:18 WBC 10.6 H RBC 2.83 L Hgb 8.6 L Hct 25.4 L MCV 90 MCH 30.3 MCHC 33.9 RDW 14.2 H Plt Count 179 Sodium 138.4 Potassium 3.9 Chloride 99 Carbon Dioxide 26 Anion Gap 13 BUN 59 H Creatinine 8.69 H Est GFR ( Amer) 8 L Est GFR (Non-Af Amer) 6 L Glucose 161 H Calcium 8.3 L 01/02/19 09:25 Clean Catch Midstream Urine Culture - Final Staphylococcus Aureus Urogenital Shraddha 01/02/19 13:25 Arm - Not Specified Gram Stain - Final 01/02/19 13:25 Arm - Not Specified Wound Culture - Final Staphylococcus Aureus 01/02/19 08:40 Blood Blood Culture - Final Staphylococcus Aureus 01/02/19 07:36 Blood Blood Culture - Final Staphylococcus Aureus 01/02/19 01/03/19 01/03/19 07:36 02:47 02:47 Creatine Kinase 77 CK-MB (CK-2) 1.51 Troponin I 0.027 0.040 01/03/19 01/03/19 01/03/19 08:59 08:59 14:36 Creatine Kinase 78 63 CK-MB (CK-2) 1.98 Troponin I 0.029 01/03/19 14:36 Creatine Kinase CK-MB (CK-2) 1.74 Troponin I 0.021 Impressions: Chest X-Ray 01/02/19 07:09 IMPRESSION: Left basilar heterogeneous opacity, which may reflect atelectasis and/or airspace disease and is similar to prior examination. Consider PA and lateral chest radiographs or CT given stated clinical concern for sepsis. Cardiomegaly. Chest CT 01/02/19 11:12 IMPRESSION: Mild atelectatic changes in the left lung. Significant pericardial effusion. Interventional Vascular Procedure 01/03/19 00:00 IMPRESSION: Please see combined report for performance of procedure and radiologic supervision and interpretation. Tunnelled Catheter Removal 01/03/19 00:00 IMPRESSION: IMAGE(S) OBTAINED DURING PROCEDURE. Assessment & Plan - Diagnosis (1) Pericardial effusion Is this a current diagnosis for this admission?: Yes Plan: Reason for pericardial effusion could be the fact that patient has been in the past noncompliant and there could be an uremic element as well as the fact the patient was on long-term minoxidil which has been discontinued. Monitor carefully for acute tamponade physiology. Please also maintain blood pressure while he is on IV Cardizem and not allow her to drop too low in the face of moderate effusion.We will remove no fluid on ultrafiltration today. Discussed with the treating dialysis nurse. (2) Infection of exit site of hemodialysis catheter Is this a current diagnosis for this admission?: Yes Plan: The catheter site was removed and he now has a temporary dialysis catheter was placed in the groin. Blood cultures already positive for gram-positive cocci.Patient is already on cefepime and vancomycin. (3) End-stage renal disease on hemodialysis Is this a current diagnosis for this admission?: Yes Plan: Patient is currently undergoing dialysis being carefully monitored given the fact that he has small to moderate pericardial effusion on ECHO. Vital signs are stable . Dialysis is being supervised to ensure safe and smooth procedure.Discussed extensively with the dialysis nurse about keeping blood pressures closely monitored given his moderate-sized pericardial effusion. We will plan to remove !-2 l as tolerated. (4) Hypertension Is this a current diagnosis for this admission?: Yes Plan: Presently controlled. (5) Obstructive sleep apnea Is this a current diagnosis for this admission?: Yes Plan: As per hospitalist. (6) Renal mass Plan: He needs work-up for this and for possible renal biopsy. Patient has however has not kept appointments in the past. This needs to be looked at once he is discharged again. (7) Type 2 diabetes mellitus Plan: Advised tight control.
--- NOTE | 2019-01-04 16:33 | PDOC PROGRESS REPORT ---
Subjective Progress Note for:: 01/04/19 Subjective:: No adverse events overnight. No new complaints. Appetite is improving. He is more alert today. Vital signs been stable. He is been able to come off the IV Cardizem and on the oral Cardizem now. Tolerating dialysis without hypotension. Reason For Visit: ACUTE ON CHRONIC RENAL FAILURE,ACUTE ON CHRONIC Physical Exam Vital Signs: Temp Pulse Resp BP Pulse Ox 98.1 F 94 17 136/90 H 96 01/04/19 12:00 01/04/19 14:00 01/04/19 15:14 01/04/19 15:14 01/04/19 15:14 Intake & Output 01/03/19 01/04/19 01/05/19 06:59 06:59 06:59 Intake Total 1727 803 Output Total 1600 200 15 Balance 127 603 -15 Weight 118.6 kg 118.1 kg General appearance: PRESENT: no acute distress, cooperative, disheveled, obese Respiratory exam: PRESENT: clear to auscultation octavia, symmetrical, unlabored. ABSENT: accessory muscle use, chest wall tenderness, crackles, prolonged expiratory phas, rales, rhonchi, tachypnea, wheezes Cardiovascular exam: PRESENT: irregular rhythm Pulses: PRESENT: normal carotid pulses Vascular exam: PRESENT: normal capillary refill GI/Abdominal exam: PRESENT: normal bowel sounds, soft. ABSENT: distended, guarding, rebound, tenderness Extremities exam: ABSENT: clubbing, pedal edema Musculoskeletal exam: PRESENT: normal inspection. ABSENT: deformity Neurological exam: PRESENT: alert, awake, oriented to person, oriented to place, oriented to situation Psychiatric exam: PRESENT: flat affect Skin exam: PRESENT: dry, warm, other -clean bandage over the old dialysis catheter site Results Laboratory Results: 01/04/19 04:18 01/04/19 04:18 01/04/19 01/04/19 04:18 04:18 WBC 10.6 H RBC 2.83 L Hgb 8.6 L Hct 25.4 L MCV 90 MCH 30.3 MCHC 33.9 RDW 14.2 H Plt Count 179 Sodium 138.4 Potassium 3.9 Chloride 99 Carbon Dioxide 26 Anion Gap 13 BUN 59 H Creatinine 8.69 H Est GFR ( Amer) 8 L Est GFR (Non-Af Amer) 6 L Glucose 161 H Calcium 8.3 L 01/02/19 09:25 Clean Catch Midstream Urine Culture - Final Staphylococcus Aureus Urogenital Shraddha 01/02/19 13:25 Arm - Not Specified Gram Stain - Final 01/02/19 13:25 Arm - Not Specified Wound Culture - Final Staphylococcus Aureus 01/02/19 08:40 Blood Blood Culture - Final Staphylococcus Aureus 01/02/19 07:36 Blood Blood Culture - Final Staphylococcus Aureus 01/02/19 01/03/19 01/03/19 07:36 02:47 02:47 Creatine Kinase 77 CK-MB (CK-2) 1.51 Troponin I 0.027 0.040 01/03/19 01/03/19 01/03/19 08:59 08:59 14:36 Creatine Kinase 78 63 CK-MB (CK-2) 1.98 Troponin I 0.029 01/03/19 14:36 Creatine Kinase CK-MB (CK-2) 1.74 Troponin I 0.021 Impressions: Chest X-Ray 01/02/19 07:09 IMPRESSION: Left basilar heterogeneous opacity, which may reflect atelectasis and/or airspace disease and is similar to prior examination. Consider PA and lateral chest radiographs or CT given stated clinical concern for sepsis. Cardiomegaly. Chest CT 01/02/19 11:12 IMPRESSION: Mild atelectatic changes in the left lung. Significant pericardial effusion. Interventional Vascular Procedure 01/03/19 00:00 IMPRESSION: Please see combined report for performance of procedure and radiologic supervision and interpretation. Tunnelled Catheter Removal 01/03/19 00:00 IMPRESSION: IMAGE(S) OBTAINED DURING PROCEDURE. Assessment and Plan - Diagnosis (1) HCAP (healthcare-associated pneumonia) Is this a current diagnosis for this admission?: Yes Plan: Less inclined to think now that H CAP was a source of his infection. I will say that this is ruled out. (2) Infection of exit site of hemodialysis catheter Is this a current diagnosis for this admission?: Yes Plan: Turned out that he has MSSA in the catheter site wound, the catheter tip is still pending, but he also has MSSA in both blood cultures and also in his urine culture. Currently on vancomycin. Once I get the final result from the cath tip culture, I will likely switch him over to either nafcillin or cefazolin. (3) Nausea vomiting and diarrhea Is this a current diagnosis for this admission?: Yes Plan: Now resolved (4) Pericardial effusion Is this a current diagnosis for this admission?: Yes Plan: Minoxidil has been discontinued. I spoke to Dr. Cosmo Perla about whether or not this patient would need a pericardiocentesis. He recommended against it at this time since he felt like it was more likely to be uremic in origin and should respond well to aggressive dialysis. He said that if he would be at risk for tamponade, it would likely happen during dialysis. He said that if it does happen, we should stop dialysis, give him some fluids, and then transfer him (5) End-stage renal disease on hemodialysis Is this a current diagnosis for this admission?: Yes Plan: Dr. Steele was consulted (6) Atrial fibrillation with RVR Is this a current diagnosis for this admission?: Yes Plan: Currently rate controlled on oral Cardizem. Will consider anticoagulation. (7) MSSA bacteremia Is this a current diagnosis for this admission?: Yes Plan: In addition to his antibiotics, he is going to need a LENNIE once he is more clinically stable. We will make those arrangements to send him to [facility] once he is more stable. (8) Hypertension Qualifiers: Hypertension type: essential hypertension Qualified Code(s): I10 - Essential (primary) hypertension Is this a current diagnosis for this admission?: Yes Plan: We will restart some of his home medications in order to bring down his blood pressure - Time Time Spent with patient: 25-34 minutes
[2019-01-04] MEDS: METOPROLOL TARTRATE 100 MG TABLET PO SCH ×2 (16:38→21:35)
[2019-01-04] MEDS: AMLODIPINE BESYLATE 10 MG TABLET PO SCH (16:38)
[2019-01-04] MEDS: GABAPENTIN 100 MG CAPSULE PO PRN (17:40)
[2019-01-04] MEDS ORDERED: VANCOMYCIN HCL 750 MG in DEXTROSE 5%-WATER 250 ML IV SCH (18:00)
[2019-01-04] MEDS: ATORVASTATIN CALCIUM 80 MG TABLET PO SCH (21:35)
[2019-01-05] MEDS: DILTIAZEM HCL 90 MG TABLET PO SCH ×4 (00:44→18:41)
[2019-01-05 08:17] LABS: ABSOLUTE BASOPHILS # (AUTO) 0.1 10^3/uL (0.0-0.2); ABSOLUTE EOSINOPHILS # (AUTO) 0.1 10^3/uL (0.0-0.6); ABSOLUTE LYMPHOCYTES (AUTO) 1.4 10^3/uL (0.5-4.7); ABSOLUTE MONOCYTES (AUTO) 0.8 10^3/uL (0.1-1.4); ABSOLUTE NEUT (AUTO) 6.5 10^3/uL (1.7-8.2); BASOPHILS % (AUTO) 1.3 % (0-2); EOSINOPHILS % (AUTO) 0.8 % (0-6); HEMATOCRIT 26.4 % (37.9-51.0); HEMOGLOBIN 8.8 g/dL (13.5-17.0); LYMPHOCYTES % (AUTO) 15.8 % (13-45); MEAN CORPUSCULAR HGB CONC 33.4 g/dL (32.0-36.0); MEAN CORPUSCULAR VOLUME 90 fl (80-97); MONOCYTES % (AUTO) 9.4 % (3-13); PLATELET COUNT 211 10^3/uL (150-450); RED BLOOD COUNT 2.94 10^6/uL (4.35-5.55); RED CELL DISTRIBUTION WIDTH 14.2 % (11.5-14.0); SEGMENTED NEUTROPHILS % (AUTO) 72.7 % (42-78); TOTAL CELLS COUNTED % (AUTO) 100 %; WHITE BLOOD COUNT 8.9 10^3/uL (4.0-10.5)
[2019-01-05 08:32] LABS: ANION GAP 11 (5-19); BLOOD UREA NITROGEN 65 mg/dL (7-20); CALCIUM 8.2 mg/dL (8.4-10.2); CARBON DIOXIDE 27 mmol/L (22-30); CHLORIDE 99 mmol/L (98-107); GLUCOSE 157 mg/dL (75-110); POTASSIUM 4.3 mmol/L (3.6-5.0)
[2019-01-05] MEDS ORDERED: FENTANYL CITRATE INJ/PF 100 MCG/2 ML AMPUL ONE (10:38)
[2019-01-05] MEDS ORDERED: MIDAZOLAM 2 MG/2 ML INJ ONE (10:38)
[2019-01-05] MEDS ORDERED: BACITRACIN INJ 50,000 UNIT VIAL ONE (10:39)
[2019-01-05] MEDS ORDERED: LIDOCAINE 0.5% INJ-PF (5 MG/ML) 50 ML SDV ONE ×2 (11:05→13:17)
[2019-01-05] MEDS ORDERED: CEFAZOLIN INJ 1 GM VIAL ONE (11:26)
--- NOTE | 2019-01-05 12:54 | PDOC PROGRESS REPORT ---
Subjective Progress Note for:: 01/05/19 Reason For Visit: Patient seen in the ICU today. He he looks very awake alert and more responsive. He tells me today that his has already made appointments at [facility] for follow-up of possible renal biopsy of the potential tumor as well as made appointments with vascular surgeon in [place] for AV fistula placement. He overall feels better than when he came in. He denies any history of chest pain or shortness of breath. Appetite is picking up. No history of nausea vomiting, fever or chills. Labs and medications were reviewed. Patient is currently undergoing dialysis given his pericardial effusion. Dialysis orders were reviewed with the treating dialysis nurse.Scheduled for having PermCath placed this afternoon by Dr. Perla. Physical Exam Vital Signs: Temp Pulse Resp BP Pulse Ox 100.1 F 77 21 H 155/100 H 95 01/05/19 08:00 01/05/19 10:00 01/05/19 11:00 01/05/19 10:51 01/05/19 11:00 Intake & Output 01/04/19 01/05/19 01/06/19 06:59 06:59 06:59 Intake Total 803 Output Total 200 2715 Balance 603 -2715 Weight 118.1 kg 117.4 kg General appearance: PRESENT: no acute distress Respiratory exam: PRESENT: clear to auscultation octavia. ABSENT: crackles Cardiovascular exam: PRESENT: +S1, +S2 GI/Abdominal exam: PRESENT: normal bowel sounds, soft. ABSENT: organomegaly, tenderness Extremities exam: PRESENT: pedal edema Neurological exam: PRESENT: alert, awake, oriented to person, oriented to place Psychiatric exam: PRESENT: appropriate affect Results Laboratory Results: 01/05/19 08:00 01/05/19 08:00 01/05/19 01/05/19 08:00 08:00 WBC 8.9 RBC 2.94 L Hgb 8.8 L Hct 26.4 L MCV 90 MCH 30.0 MCHC 33.4 RDW 14.2 H Plt Count 211 Seg Neutrophils % 72.7 Lymphocytes % 15.8 Monocytes % 9.4 Eosinophils % 0.8 Basophils % 1.3 Absolute Neutrophils 6.5 Absolute Lymphocytes 1.4 Absolute Monocytes 0.8 Absolute Eosinophils 0.1 Absolute Basophils 0.1 Sodium 136.8 L Potassium 4.3 Chloride 99 Carbon Dioxide 27 Anion Gap 11 BUN 65 H Creatinine 8.21 H Est GFR ( Amer) 8 L Est GFR (Non-Af Amer) 7 L Glucose 157 H Calcium 8.2 L 01/03/19 12:02 Catheter Tip - Peripheral Line (Cath Tip) Catheter Tip Culture - Final Staphylococcus Aureus 01/02/19 09:25 Clean Catch Midstream Urine Culture - Final Staphylococcus Aureus Urogenital Shraddha 01/02/19 13:25 Arm - Not Specified Gram Stain - Final 01/02/19 13:25 Arm - Not Specified Wound Culture - Final Staphylococcus Aureus 01/02/19 08:40 Blood Blood Culture - Final Staphylococcus Aureus 01/02/19 07:36 Blood Blood Culture - Final Staphylococcus Aureus 01/02/19 01/03/19 01/03/19 07:36 02:47 02:47 Creatine Kinase 77 CK-MB (CK-2) 1.51 Troponin I 0.027 0.040 01/03/19 01/03/19 01/03/19 08:59 08:59 14:36 Creatine Kinase 78 63 CK-MB (CK-2) 1.98 Troponin I 0.029 01/03/19 14:36 Creatine Kinase CK-MB (CK-2) 1.74 Troponin I 0.021 Impressions: Chest X-Ray 01/02/19 07:09 IMPRESSION: Left basilar heterogeneous opacity, which may reflect atelectasis and/or airspace disease and is similar to prior examination. Consider PA and lateral chest radiographs or CT given stated clinical concern for sepsis. Cardiomegaly. Chest CT 01/02/19 11:12 IMPRESSION: Mild atelectatic changes in the left lung. Significant pericardial effusion. Interventional Vascular Procedure 01/03/19 00:00 IMPRESSION: Please see combined report for performance of procedure and radiologic supervision and interpretation. Tunnelled Catheter Removal 01/03/19 00:00 IMPRESSION: IMAGE(S) OBTAINED DURING PROCEDURE. Assessment & Plan - Diagnosis (1) Pericardial effusion Is this a current diagnosis for this admission?: Yes Plan: The reasons for pericardial effusion are secondary to that patient has been in the past noncompliant and therefore an uremic element as well as the fact the pa tient was on long-term minoxidil which has been discontinued. Monitor carefully for acute tamponade physiology. Discussed with the treating dialysis nurse. (2) Infection of exit site of hemodialysis catheter Is this a current diagnosis for this admission?: Yes Plan: The catheter site was removed and he now has a temporary dialysis catheter was placed in the groin. Blood cultures already positive for MSSA. .Patient is already on cefepime and vancomycin. Antibiotics could be modified to an appropriate cephalosporin which can be administered currently and as well as an outpatient and vancomycin discontinued. Is getting a PermCath placement today. (3) End-stage renal disease on hemodialysis Is this a current diagnosis for this admission?: Yes Plan: Patient is currently undergoing dialysis being carefully monitored given the fact that he has small to moderate pericardial effusion on ECHO. Vital signs are stable . Dialysis is being supervised to ensure safe and smooth procedure.Discussed extensively with the dialysis nurse about keeping blood pres sures closely monitored given his moderate-sized pericardial effusion. We will plan to remove 1-2 l as tolerated. (4) Hypertension Is this a current diagnosis for this admission?: Yes Plan: Controlled. Monitor. (5) Obstructive sleep apnea Is this a current diagnosis for this admission?: Yes Plan: As per hospitalist. (6) Renal mass Plan: He needs work-up for this and for possible renal biopsy. Patient has however [place] not kept appointments in the past. He tells me today that his is only made up appointments to be seen at [facility] post discharge in January. (7) Type 2 diabetes mellitus Plan: Advised tight control. (8) Sepsis Plan: Resolved. Patient had MSSA bacteremia and antibiotics have been modified by hospitalist to be given post dialysis and can be administered even after discharge as an outpatient at [facility]. Continue antibiotics.
--- NOTE | 2019-01-05 13:42 | Progress Note ---
Provider Note Provider Note: ID Telephone consultation - Brief Note Asked to review patient's chart regarding choice and duration of antibiotic t herapy for pt who has ESRD on HD secondary to infected HD catheter, which has been removed. Preliminary impression/recommendations - Agree with Ancef, can be given with dialysis, typically 2g / 2g / 3g if on MWF or TTS schedule. - Would need repeat BCx to document clearance of the bacteremia. Duration of bacteremia (persistent bacteremia) is the strongest predictor of complications. Duration of therapy depends on risk for complications. Placement of zigzag appliquer IV access also guided by knowing when BCx clearance has been achieved. Higher risk of relapse of Staph aureus bacteremia is associated with placement of zigzag appliquer IV access in close temporal proximity to a documented bacteremia compared to waiting until after blood cultures are known to be negative. Typically advise waiting until blood cultures are negative x at least 48h prior to tunneled CVL placement if needed for continued HD access. Will review chart in greater detail and addend as needed. Francisco Westbrook MD [facility] Infectious Diseases pager [phone]
--- NOTE | 2019-01-05 14:13 | RADIOLOGY REPORT (SQ) ---
EXAM DESCRIPTION: TUNNELED CENTRAL LINE COMPLETED DATE/TIME: 01/05/2019 2:04 pm REASON FOR STUDY: NEED FOR VASCULAR ACCESS COMPARISON: None. FLUOROSCOPY TIME: 1.7 minutes. 138 images saved to PACS. TECHNIQUE: Intra-operative images acquired during surgical procedure to evaluate progress. NUMBER OF IMAGES: 138 images. LIMITATIONS: None. FINDINGS: Images acquired during catheter placement. IMPRESSION: IMAGE(S) OBTAINED DURING PROCEDURE. COMMENT: Quality ID [id number]: Final reports for procedures using fluoroscopy that document radiation exp osure indices, or exposure time and number of fluorographic images (if radiation exposure indices are not available) Please consult full operative report of the attending physician for description of the procedure. TECHNICAL DOCUMENTATION: JOB ID: [id number] [employer]- All Rights Reserved Reading location - IP/workstation name: [email or web address]
[2019-01-05] MEDS: INSULIN LISPRO 100 UNIT/ML 3 ML VIAL SUBCUT SCH ×4 (15:04→21:53)
[2019-01-05] MEDS: HEPARIN SOD (PORCINE) 5,000 UNIT/ML 1 ML VIAL SUBCUT SCH ×2 (15:05→21:22)
[2019-01-05] MEDS: CALCIUM ACETATE 667 MG CAPSULE PO SCH ×2 (15:05→17:52)
[2019-01-05] MEDS: AMLODIPINE BESYLATE 10 MG TABLET PO SCH (15:10)
[2019-01-05] MEDS: METOPROLOL TARTRATE 100 MG TABLET PO SCH ×2 (15:11→21:21)
--- NOTE | 2019-01-05 18:27 | PDOC PROGRESS REPORT ---
Subjective Progress Note for:: 01/05/19 Subjective:: No adverse events overnight. No new complaints. Vital signs been stable. He was transitioned to p.o. Cardizem and his blood pressure and heart rate of tolerated it well. He is been afebrile. He is been tolerating dialysis without any difficulty. Reason For Visit: ACUTE ON CHRONIC RENAL FAILURE,ACUTE ON CHRONIC Physical Exam Vital Signs: Temp Pulse Resp BP Pulse Ox 98.2 F 84 19 126/68 H 100 01/05/19 14:11 01/05/19 14:11 01/05/19 14:11 01/05/19 14:11 01/05/19 14:11 Intake & Output 01/04/19 01/05/19 01/06/19 06:59 06:59 06:59 Intake Total 803 250 Output Total 200 2715 5382 Balance 747 -4033 -4828 Weight 118.1 kg 117.4 kg 115.5 kg General appearance: PRESENT: no acute distress, cooperative, disheveled, obese Respiratory exam: PRESENT: clear to auscultation octavia, symmetrical, unlabored. ABSENT: accessory muscle use, chest wall tenderness, crackles, prolonged expiratory phas, rales, rhonchi, tachypnea, wheezes Cardiovascular exam: PRESENT: irregular rhythm Pulses: PRESENT: normal carotid pulses Vascular exam: PRESENT: normal capillary refill GI/Abdominal exam: PRESENT: normal bowel sounds, soft. ABSENT: distended, guarding, rebound, tenderness Extremities exam: ABSENT: clubbing, pedal edema Musculoskeletal exam: PRESENT: normal inspection. ABSENT: deformity Neurological exam: PRESENT: alert, awake, oriented to person, oriented to place, oriented to situation Psychiatric exam: PRESENT: flat affect Skin exam: PRESENT: dry, warm, other -clean bandage over the old dialysis catheter site Results Laboratory Results: 01/05/19 08:00 01/05/19 08:00 01/05/19 01/05/19 08:00 08:00 WBC 8.9 RBC 2.94 L Hgb 8.8 L Hct 26.4 L MCV 90 MCH 30.0 MCHC 33.4 RDW 14.2 H Plt Count 211 Seg Neutrophils % 72.7 Lymphocytes % 15.8 Monocytes % 9.4 Eosinophils % 0.8 Basophils % 1.3 Absolute Neutrophils 6.5 Absolute Lymphocytes 1.4 Absolute Monocytes 0.8 Absolute Eosinophils 0.1 Absolute Basophils 0.1 Sodium 136.8 L Potassium 4.3 Chloride 99 Carbon Dioxide 27 Anion Gap 11 BUN 65 H Creatinine 8.21 H Est GFR ( Amer) 8 L Est GFR (Non-Af Amer) 7 L Glucose 157 H Calcium 8.2 L 01/03/19 12:02 Catheter Tip - Peripheral Line (Cath Tip) Catheter Tip Culture - Final Staphylococcus Aureus 01/02/19 09:25 Clean Catch Midstream Urine Culture - Final Staphylococcus Aureus Urogenital Shraddha 01/02/19 01/03/19 01/03/19 07:36 02:47 02:47 Creatine Kinase 77 CK-MB (CK-2) 1.51 Troponin I 0.027 0.040 01/03/19 01/03/19 01/03/19 08:59 08:59 14:36 Creatine Kinase 78 63 CK-MB (CK-2) 1.98 Troponin I 0.029 01/03/19 14:36 Creatine Kinase CK-MB (CK-2) 1.74 Troponin I 0.021 Impressions: Chest X-Ray 01/02/19 07:09 IMPRESSION: Left basilar heterogeneous opacity, which may reflect atelectasis and/or airspace disease and is similar to prior examination. Consider PA and lateral chest radiographs or CT given stated clinical concern for sepsis. Cardiomegaly. Chest CT 01/02/19 11:12 IMPRESSION: Mild atelectatic changes in the left lung. Significant pericardial effusion. Interventional Vascular Procedure 01/03/19 00:00 IMPRESSION: Please see combined report for performance of procedure and radiologic supervision and interpretation. Tunnelled Catheter Removal 01/03/19 00:00 IMPRESSION: IMAGE(S) OBTAINED DURING PROCEDURE. Central Venous Line 01/05/19 00:00 IMPRESSION: IMAGE(S) OBTAINED DURING PROCEDURE. Assessment and Plan - Diagnosis (1) HCAP (healthcare-associated pneumonia) Is this a current diagnosis for this admission?: Yes Plan: Less inclined to think now that H CAP was a source of his infection. I will say that this is ruled out. (2) Infection of exit site of hemodialysis catheter Is this a current diagnosis for this admission?: Yes Plan: Turned out that he has MSSA pretty much everywhere. We are switching him over to Ancef. It looks like he will be able to get his antibiotics with dialysis. (3) Nausea vomiting and diarrhea Is this a current diagnosis for this admission?: Yes Plan: Now resolved (4) Pericardial effusion Is this a current diagnosis for this admission?: Yes Plan: Minoxidil has been discontinued. I spoke to Dr. Cosmo Perla about whether or not this patient would need a pericardiocentesis. He recommended against it at this time since he felt like it was more likely to be uremic in origin and should respond well to aggressive dialysis. He said that if he would be at risk for tamponade, it would likely happen during dialysis. He said that if it does happen, we should stop dialysis, give him some fluids, and then transfer him (5) End-stage renal disease on hemodialysis Is this a current diagnosis for this admission?: Yes Plan: Dr. Steele was consulted (6) Atrial fibrillation with RVR Is this a current diagnosis for this admission?: Yes Plan: Well-controlled on p.o. Cardizem. He may need to be anticoagulated. (7) MSSA bacteremia Is this a current diagnosis for this admission?: Yes Plan: In addition to the above, we have arranged for him to go get a LENNIE to rule out endocarditis. (8) Hypertension Qualifiers: Hypertension type: essential hypertension Qualified Code(s): I10 - Essential (primary) hypertension Is this a current diagnosis for this admission?: Yes Plan: We will restart some of his home medications in order to bring down his blood pressure - Time Time Spent with patient: 35 or more minutes
--- NOTE | 2019-01-05 20:34 | Operative Report ---
Operative Report DATE OF SURGERY: 01/05/19 PREOPERATIVE DIAGNOSIS: 1. End-stage renal disease on hemodialysis. 2. Sepsis secondary to previous catheter. 3. History of MRSA. 4. Multiple comorbidities. POSTOPERATIVE DIAGNOSIS: 1. End-stage renal disease on hemodialysis. 2. Sepsis secondary to previous catheter. 3. History of MRSA. 4. Multiple comorbidities. OPERATION: 1. Ultrasound evaluation and access in the right anterior jugular vein. 2. Angiogram and interpretation. 3. Real-time ultrasound access in the left femoral vein. 4. Insertion of hemodialysis catheter in the left femoral vein. 5. Angiogram and interpretation. SURGEON: [employer]AUR[employer] OWNER: None. ANESTHESIA: Moderate Sedation TISSUE REMOVED OR ALTERED: Not applicable. COMPLICATIONS: Unsuccessful jugular access. ESTIMATED BLOOD LOSS: 20 mL. 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 Angiogram through right anterior jugular vein demonstrated indirect collateral flow to the superior vena cava. Cutdown in the right external jugular vein. Satisfactory although somewhat small size left common femoral vein. Subject satisfactory access with placement of a can on permacatheter with the tip at about the L1 level. The vena cava at this level seems to be fairly large estimated to be about 3 cm in diameter. Easy egress of blood and ingress of heparinized solution through both ports. Slight pressure appreciated however. Of note this patient who has been on hemodialysis for just a few months is exhibited the most remarkable intensity to thrombosis and fibrosis of the veins including almost all the superficial veins of his upper extremities, a inserted transposed basilic vein fistula the right and quite possibly the left internal jugular veins. I discussed this with Dr. Steele as I feel that a tertiary institution is needed to approach this patient who faces increasingly difficult access problems. PROCEDURE: After obtaining informed consent, the patient was taken to the [Records Associate] and positioned supine. The [right neck] and chest were prepared with chlorhexidine and draped out with sterile linen. After the " universal timeout", in which it was verified that the patient continued to receive antibiotic, the procedure commenced. A steriley sheathed ultrasound probe was used to evaluate the [right internal jugular] and adjacent veins. Local anesthesia was infiltrated adjacent to the probe. Access into the [right internal jugular] vein was obtained using a micropuncture needle, followed by micropuncture wire and then a micropuncture catheter. Angiogram was performed with the aforementioned findings. This was unsuitable for permacatheter insertion. Ultrasound showed the presence of the external jugular vein, slightly prominent. Access was attempted percutaneously unsuccessfully. A transverse incision 1 cm in length was now made over the lower border of external jugular after obtaining local anesthesia. Dissection proceeded through the skin, subcutaneous tissue, superficial muscle fibers. The vein was located and surrounded with a 3-0 PDS. It was transected only to find the lumen fibroids. This portion of the procedure was concluded by interrupted sutures to the skin and platysma. The femur was now reprepped on the left groin and a generous surrounding area prepared with chlorhexidine and draped out with sterile linen. A sterile sheath ultrasound probe was used to evaluate the left femoral vessels. Real-time ultrasound access was not obtained in the femoral vein using a micropuncture needle followed by catheter and then 0.35 guidewire. This was replaced with a stiff Amplatz guidewire for support. This was followed by introduction of a 0.035 guidewire the tip of which was michael zach up into the inferior vena cava . A 50 cm long Canada Brand catheter was now positioned over the side and an exit site marked and locally anesthetized. The entry site was enlarged using a scalpel and sequentially larger dilators placed while monitoring the passage fluoroscopically. This was followed by introduction of a peel-away sheath. This allowed the Canada catheter to be placed over the guidewire up to the maximum extent which placed the split tips at about T12, L1. The guidewire was removed. The tunneler was now inserted through the laterally placed secondary incision and permanently affixed to the tip of the Canada catheter. The cuff was now tunneled in the distal portion of the catheter exited laterally. The catheter was transected at the indicated portion and the catheter permanently affixed to the adapter. Easy egress of blood and ingress of heparinized solution obtained through both ports. A completion angiogram was done by injecting contrast. The findings were as dictated. The groin incision was now closed using interrupted 3-0 PDS to the subcutaneous tissues, the catheter was anchored at the exit site using 3-0 PDS. A Biopatch device was now placed adjacent to the catheter. Dressings were applied and the procedure concluded. Copies of the dictated operative report for Dr. Ta Perla MD.concluded. Copies of the dictated operative report for Dr. Ta Perla MD.
[2019-01-05] MEDS: ATORVASTATIN CALCIUM 80 MG TABLET PO SCH (21:22)
[2019-01-05] MEDS: GABAPENTIN 100 MG CAPSULE PO PRN (21:54)
[2019-01-06] MEDS: DILTIAZEM HCL 90 MG TABLET PO SCH ×5 (00:03→23:39)
[2019-01-06] MEDS ORDERED: EPOETIN ALFA INJ 20000 UNIT/1 ML VIAL (RENAL) IV PRN (05:00)
[2019-01-06] MEDS ORDERED: DILTIAZEM HCL 90 MG TABLET ONE (05:32)
[2019-01-06 06:00] LABS: HEMATOCRIT 26.3 % (37.9-51.0); MEAN CORPUSCULAR HEMOGLOBIN 30.4 pg (27.0-33.4); MEAN CORPUSCULAR HGB CONC 34.3 g/dL (32.0-36.0); MEAN CORPUSCULAR VOLUME 89 fl (80-97); PLATELET COUNT 203 10^3/uL (150-450); RED BLOOD COUNT 2.96 10^6/uL (4.35-5.55); RED CELL DISTRIBUTION WIDTH 14.2 % (11.5-14.0)
[2019-01-06 06:18] LABS: ANION GAP 15 (5-19); BLOOD UREA NITROGEN 58 mg/dL (7-20); CALCIUM 8.4 mg/dL (8.4-10.2); CARBON DIOXIDE 24 mmol/L (22-30); CHLORIDE 99 mmol/L (98-107); GLUCOSE 151 mg/dL (75-110)
[2019-01-06] MEDS ORDERED: EPOETIN ALFA-EPBX 10,000 UNIT/ML VIAL (RENAL) IV PRN (07:01)
--- NOTE | 2019-01-06 07:24 | Progress Note ---
Provider Note Provider Note: ID Consult Note - Correction to prior note Recommended duration of therapy: Give 4 weeks of IV Ancef from date of negative blood cultures, in absence of IE or metastatic foci of infection. Would not treat for 2 weeks, considering pt had an infected fpc line and community acquired MSSA bacteremia. Other recommendations unchanged. LENNIE if possible, considering hemodialysis patients are at higher risk for IE Francicso Westbrook MD [facility] Infectious Diseases pager [phone]
[2019-01-06] MEDS: INSULIN LISPRO 100 UNIT/ML 3 ML VIAL SUBCUT SCH ×4 (08:59→21:18)
[2019-01-06] MEDS: CALCIUM ACETATE 667 MG CAPSULE PO SCH ×3 (08:59→16:35)
[2019-01-06] MEDS: METOPROLOL TARTRATE 100 MG TABLET PO SCH ×2 (09:25→21:18)
[2019-01-06] MEDS: HEPARIN SOD (PORCINE) 5,000 UNIT/ML 1 ML VIAL SUBCUT SCH ×2 (09:25→21:24)
[2019-01-06] MEDS: AMLODIPINE BESYLATE 10 MG TABLET PO SCH (09:25)
[2019-01-06] MEDS ORDERED: CEFAZOLIN SODIUM 2 GM in DEXTROSE 5%-WATER 100 ML IV SCH ×2 (10:00→18:00)
[2019-01-06] MEDS ORDERED: CEFAZOLIN 2 GM/D5W RTU 2 GM/50 ML RTUPB IV SCH (10:00)
[2019-01-06] MEDS ORDERED: ALTEPLASE INJ 2 MG VIAL (CATH CLEARANCE) INJ PRN (13:17)
--- NOTE | 2019-01-06 15:16 | PDOC PROGRESS REPORT ---
Subjective Progress Note for:: 01/06/19 Reason For Visit: Patient had to be transferred to [facility] for doing a LENNIE and is back in this hospital. Is currently undergoing dialysis through his femoral PermCath. Apparently the femoral catheter had clotting issues and was not able to push or pull and therefore had to have TPA instilled for 30 minutes and is working sluggishly. Patient currently undergoing dialysis. Patient is stable as well as his vital signs. Labs and medications were reviewed. Dialysis orders were reviewed with the treating dialysis nurse. Unfortunately given his pericardial effusion we have not been using any anticoagulants like heparin but has been continuously flushing his lines to prevent clotting. However I did discuss with the nurse to use heparin to lock his dialysis catheter. Physical Exam Vital Signs: Temp Pulse Resp BP Pulse Ox 97.8 F 74 19 139/71 H 95 01/06/19 11:38 01/06/19 11:38 01/06/19 11:38 01/06/19 11:38 01/06/19 11:38 Intake & Output 01/05/19 01/06/19 01/07/19 06:59 06:59 06:59 Intake Total 490 Output Total 2715 1999 Balance -2710 -9520 Weight 117.4 kg 115.7 kg General appearance: PRESENT: no acute distress Respiratory exam: PRESENT: clear to auscultation octavia. ABSENT: crackles Cardiovascular exam: PRESENT: +S1, +S2 GI/Abdominal exam: PRESENT: normal bowel sounds, soft. ABSENT: organomegaly, tenderness Extremities exam: ABSENT: pedal edema Neurological exam: PRESENT: alert, awake, oriented to person, oriented to place Psychiatric exam: PRESENT: appropriate affect Results Laboratory Results: 01/06/19 05:04 01/06/19 05:04 01/06/19 01/06/19 05:04 05:04 WBC 9.0 RBC 2.96 L Hgb 9.0 L Hct 26.3 L MCV 89 MCH 30.4 MCHC 34.3 RDW 14.2 H Plt Count 203 Sodium 138.2 Potassium 4.0 Chloride 99 Carbon Dioxide 24 Anion Gap 15 BUN 58 H Creatinine 8.24 H Est GFR ( Amer) 8 L Est GFR (Non-Af Amer) 7 L Glucose 151 H Calcium 8.4 01/02/19 01/03/19 01/03/19 07:36 02:47 02:47 Creatine Kinase 77 CK-MB (CK-2) 1.51 Troponin I 0.027 0.040 01/03/19 01/03/19 01/03/19 08:59 08:59 14:36 Creatine Kinase 78 63 CK-MB (CK-2) 1.98 Troponin I 0.029 01/03/19 14:36 Creatine Kinase CK-MB (CK-2) 1.74 Troponin I 0.021 Impressions: Chest X-Ray 01/02/19 07:09 IMPRESSION: Left basilar heterogeneous opacity, which may reflect atelectasis a nd/or airspace disease and is similar to prior examination. Consider PA and lateral chest radiographs or CT given stated clinical concern for sepsis. Cardiomegaly. Chest CT 01/02/19 11:12 IMPRESSION: Mild atelectatic changes in the left lung. Significant pericardial effusion. Interventional Vascular Procedure 01/03/19 00:00 IMPRESSION: Please see combined report for performance of procedure and radiologic supervision and interpretation. Tunnelled Catheter Removal 01/03/19 00:00 IMPRESSION: IMAGE(S) OBTAINED DURING PROCEDURE. Central Venous Line 01/05/19 00:00 IMPRESSION: IMAGE(S) OBTAINED DURING PROCEDURE. Assessment & Plan - Diagnosis (1) Pericardial effusion Is this a current diagnosis for this admission?: Yes Plan: The reasons for pericardial effusion are secondary to that patient has been in the past noncompliant and therefore an uremic element as well as the fact the patient was on long-term minoxidil which has been discontinued. Monitor c arefully for acute tamponade physiology. Discussed with the treating dialysis nurse. (2) Infection of exit site of hemodialysis catheter Is this a current diagnosis for this admission?: Yes Plan: The catheter site was removed and he now has a temporary dialysis catheter was placed in the groin. Blood cultures already positive for MSSA. .Patient is already on cefepime and vancomycin. Plan is to administer Ancef for total of 4 weeks.Will wait to see the LENNIE report. (3) End-stage renal disease on hemodialysis Is this a current diagnosis for this admission?: Yes Plan: Patient is currently undergoing dialysis being carefully monitored given the fact that he has small to moderate pericardial effusion on ECHO. Vital signs are stable . Dialysis is being supervised to ensure safe and smooth procedure.Discussed extensively with the dialysis nurse about keeping blood pressures closely monitored given his moderate-sized pericardial effusion. We will plan to remove 1-2 l as tolerated. (4) Hypertension Is this a current diagnosis for this admission?: Yes Plan: Controlled. Monitor. (5) Obstructive sleep apnea Is this a current diagnosis for this admission?: Yes Plan: As per hospitalist. (6) Renal mass Plan: He needs work-up for this and for possible renal biopsy. Patient has however has not kept appointments in the past. He tells me today that his is only made up appointments to be seen at [facility] post discharge in January. (7) Type 2 diabetes mellitus Plan: Advised tight control. (8) Sepsis Plan: Resolved. Patient had MSSA bacteremia and antibiotics have been modified by hospitalist to be given post dialysis and can be administered even after discharge as an outpatient at [facility]. Continue antibiotics.
[2019-01-06] MEDS: GABAPENTIN 100 MG CAPSULE PO PRN ×2 (15:22→23:39)
[2019-01-06] MEDS ORDERED: HEPARIN SOD (PORCINE) 1,000 UNIT/ML 10 ML VIAL IV PRN (15:58)
--- NOTE | 2019-01-06 16:01 | PDOC PROGRESS REPORT ---
Subjective Progress Note for:: 01/06/19 Subjective:: 58 year old male with a past medical history of ESRD on MWF dialysis, hypertension, controlled diabetes mellitus, COPD, and ZACH who presented with vomiting and diarrhea. Patient on bedside stated does have chronic diarrhea that he had acute worsening watery stools over the past 2 weeks. He said he was passing out 3-4 episodes of watery, nonbloody stools daily. He also reports of throwing up once yesterday. He denies abdominal pain. noted that he had coughed out some greenish sputum yesterday. No fever chills at home. In the ER, he was noted to have an acute increase in his creatinine from his baseline. No hyperkalemia. He also has leukocytosis. His chest x-ray did show possible left lower lobe pneumonia. Note of area of erythema and drainage around the site of perm cath. 01/06/[id number]-fhno-old male with history of ESRD on hemodialysis Wednesday, hypertension diabetes mellitus COPD obstructive sleep apnea admitted wit h vomitings and diarrhea cultures found to have MSSA and most likely from the left-sided catheter site which was removed event for the echocardiogram LENNIE today at [facility] results came back negative for vegetation. As per the ID recommendations from the day of negative cultures in need 4 weeks of antibiotic therapy IV. On examination today is comfortably in the dialysis unit communicating well requesting gabapentin for his restless leg syndrome. Reason For Visit: ACUTE ON CHRONIC RENAL FAILURE,ACUTE ON CHRONIC Physical Exam Vital Signs: Temp Pulse Resp BP Pulse Ox 97.8 F 74 19 139/71 H 95 01/06/19 11:38 01/06/19 11:38 01/06/19 11:38 01/06/19 11:38 01/06/19 11:38 Intake & Output 01/05/19 01/06/19 01/07/19 06:59 06:59 06:59 Intake Total 490 Output Total 7045 1999 Balance -8636 -0073 Weight 117.4 kg 115.7 kg General appearance: PRESENT: no acute distress Eye exam: PRESENT: PERRLA Mouth exam: PRESENT: moist, tongue midline Neck exam: ABSENT: carotid bruit, JVD, lymphadenopathy, thyromegaly Respiratory exam: PRESENT: clear to auscultation octavia. ABSENT: rales, rhonchi, wheezes Cardiovascular exam: PRESENT: RRR. ABSENT: diastolic murmur, rubs, systolic murmur GI/Abdominal exam: PRESENT: normal bowel sounds, soft. ABSENT: distended, guarding, mass, organolmegaly, rebound, tenderness Rectal exam: PRESENT: deferred Extremities exam: PRESENT: full ROM. ABSENT: calf tenderness, clubbing, pedal edema Neurological exam: PRESENT: alert, awake, oriented to person, oriented to place, oriented to time, oriented to situation, CN II-XII grossly intact. ABSENT: motor sensory deficit Psychiatric exam: PRESENT: appropriate affect, normal mood. ABSENT: homicidal ideation, suicidal ideation Results Laboratory Results: 01/06/19 05:04 01/06/19 05:04 01/06/19 01/06/19 05:04 05:04 WBC 9.0 RBC 2.96 L Hgb 9.0 L Hct 26.3 L MCV 89 MCH 30.4 MCHC 34.3 RDW 14.2 H Plt Count 203 Sodium 138.2 Potassium 4.0 Chloride 99 Carbon Dioxide 24 Anion Gap 15 BUN 58 H Creatinine 8.24 H Est GFR ( Amer) 8 L Est GFR (Non-Af Amer) 7 L Glucose 151 H Calcium 8.4 01/02/19 01/03/19 01/03/19 07:36 02:47 02:47 Creatine Kinase 77 CK-MB (CK-2) 1.51 Troponin I 0.027 0.040 01/03/19 01/03/19 01/03/19 08:59 08:59 14:36 Creatine Kinase 78 63 CK-MB (CK-2) 1.98 Troponin I 0.029 01/03/19 14:36 Creatine Kinase CK-MB (CK-2) 1.74 Troponin I 0.021 Impressions: Chest X-Ray 01/02/19 07:09 IMPRESSION: Left basilar heterogeneous opacity, which may reflect atelectasis and/or airspace disease and is similar to prior examination. Consider PA and lateral chest radiographs or CT given stated clinical concern for sepsis. Cardiomegaly. Chest CT 01/02/19 11:12 IMPRESSION: Mild atelectatic changes in the left lung. Significant pericardial effusion. Interventional Vascular Procedure 01/03/19 00:00 IMPRESSION: Please see combined report for performance of procedure and radiologic supervision and interpretation. Tunnelled Catheter Removal 01/03/19 00:00 IMPRESSION: IMAGE(S) OBTAINED DURING PROCEDURE. Central Venous Line 01/05/19 00:00 IMPRESSION: IMAGE(S) OBTAINED DURING PROCEDURE. Assessment and Plan - Diagnosis (1) Atrial fibrillation with RVR Is this a current diagnosis for this admission?: Yes Plan: Well-controlled on p.o. Cardizem. He may need to be anticoagulated. 01/06/2019-patient developed A. fib with RVR during the hospital stay and he had a history of chronic atrial fibrillation presently heart rate is well controlled on p.o. Cardizem. Because of the multiple comorbidities and history of hypertension, diabetes mellitus probably I will start him on anticoagulation. (2) HCAP (healthcare-associated pneumonia) Is this a current diagnosis for this admission?: Yes Plan: Less inclined to think now that H CAP was a source of his infection. I will say that this is ruled out. 01/06/2019-differential diagnosis during the admission is HCAP Which is unlikely. (3) Hemodialysis catheter infection Is this a current diagnosis for this admission?: Yes Plan: Continue IV antibiotics. Dr. Perla consulted for possible replacement of HD cath. 01/06/2019-the cultures from the catheter site came back MSSA. Presently on cefazolin. (4) MSSA bacteremia Is this a current diagnosis for this admission?: Yes Plan: In addition to the above, we have arranged for him to go get a LENNIE to rule out endocarditis. 01/06/2019 LENNIE came back negative for vegetation. Presently on cefazolin for MSSA. As per ID recommendations we will give 4 weeks of antibiotic therapy from the date of negative blood cultures. (5) Diabetes mellitus type 2 in obese Is this a current diagnosis for this admission?: Yes Plan: Accu-Cheks. Sliding very well. 01/06/2019-patient has history of type 2 diabetes mellitus. His latest blood sugar is 151. Plan is to continue the sliding scale. (6) Pericardial effusion Is this a current diagnosis for this admission?: Yes Plan: Minoxidil has been discontinued. I spoke to Dr. Cosmo Perla about whether or not this patient would need a pericardiocentesis. He recommended against it at this time since he felt like it was more likely to be uremic in origin and should respond well to aggressive dialysis. He said that if he would be at risk for tamponade, it would likely happen during dialysis. He said that if it does happen, we should stop dialysis, give him some fluids, and then transfer him 01/06/2019-patient has a pericardial effusion is getting regular dialysis for this problem. Consultation with Dr. Cosmo Boothe was at done his recommendation is patient does not need any pericardial tap. Meantime his recommendation is aggressive dialysis. He is getting on daily basis. (7) Anemia Qualifiers: Chronic kidney disease stage: stage 4 (severe) Is this a current diagnosis for this admission?: No Plan: 01/06/2019-patient has history of anemia of chronic disease most likely secondary to end-stage renal disease. Patient hemoglobin is 9.0. (8) End-stage renal disease on hemodialysis Is this a current diagnosis for this admission?: Yes Plan: Dr. Steele was consulted 01/06/2019-patient is receiving dialysis today. Nephrology on board. (9) Renal mass Is this a current diagnosis for this admission?: No Plan: 01/06/2019-patient has a history of renal mass he failed to follow-up ap pointments for renal biopsy. I tried to convince him today that he needed renal biopsy for a conclusive diagnosis. Looks like is not interested. - Time Time Spent with patient: 25-34 minutes Medications reviewed and adjusted accordingly: Yes Anticipated discharge: Home
[2019-01-06] MEDS: ATORVASTATIN CALCIUM 80 MG TABLET PO SCH (21:18)
[2019-01-07] MEDS: DILTIAZEM HCL 90 MG TABLET PO SCH ×4 (05:47→23:46)
[2019-01-07] MEDS: INSULIN LISPRO 100 UNIT/ML 3 ML VIAL SUBCUT SCH ×4 (07:21→22:34)
[2019-01-07] MEDS: CALCIUM ACETATE 667 MG CAPSULE PO SCH ×3 (09:33→17:00)
[2019-01-07] MEDS: HEPARIN SOD (PORCINE) 5,000 UNIT/ML 1 ML VIAL SUBCUT SCH ×2 (09:34→22:33)
[2019-01-07] MEDS: METOPROLOL TARTRATE 100 MG TABLET PO SCH ×2 (09:34→22:34)
[2019-01-07] MEDS: AMLODIPINE BESYLATE 10 MG TABLET PO SCH (09:34)
[2019-01-07] MEDS: GABAPENTIN 100 MG CAPSULE PO PRN ×2 (09:54→20:41)
--- NOTE | 2019-01-07 10:25 | PDOC PROGRESS REPORT ---
Subjective Progress Note for:: 01/07/19 Subjective:: 58 year old male with a past medical history of ESRD on MWF dialysis, hypertension, controlled diabetes mellitus, COPD, and ZACH who presented with vomiting and diarrhea. Patient on bedside stated does have chronic diarrhea that he had acute worsening watery stools over the past 2 weeks. He said he was passing out 3-4 episodes of watery, nonbloody stools daily. He also reports of throwing up once yesterday. He denies abdominal pain. noted that he had coughed out some greenish sputum yesterday. No fever chills at home. In the ER, he was noted to have an acute increase in his creatinine from his baseline. No hyperkalemia. He also has leukocytosis. His chest x-ray did show possible left lower lobe pneumonia. Note of area of erythema and drainage around the site of perm cath. 01/06/[id number]-jbes-old male with history of ESRD on hemodialysis Wednesday, hypertension diabetes mellitus COPD obstructive sleep apnea admitted wit h vomitings and diarrhea cultures found to have MSSA and most likely from the left-sided catheter site which was removed event for the echocardiogram LENNIE today at [facility] results came back negative for vegetation. As per the ID recommendations from the day of negative cultures in need 4 weeks of antibiotic therapy IV. On examination today is comfortably in the dialysis unit communicating well requesting gabapentin for his restless leg syndrome. 01/07/[id number]-nrtk-old male with history of ESRD on hemodialysis Wednesday, hypertension, diabetes mellitus, COPD, obstructive sleep apnea admitted with vomitings and diarrhea. The cultures came back positive for MRSA. Most likely from the dialysis catheter site. The catheter on the left side of the chest was removed and a new catheter was placed on the right side. He is also has a fistula and it is not matured yet. Patient went to [facility] for LENNIE yesterday and the report came back negative for vegetation. As per the ID recommendations patient is going to need IV antibiotic therapy 4 weeks from the day of blood cultures negative. Cultures from 01/05/2019 are negative so far. Reason For Visit: ACUTE ON CHRONIC RENAL FAILURE,ACUTE ON CHRONIC Physical Exam Vital Signs: Temp Pulse Resp BP Pulse Ox 98.1 F 78 18 150/69 H 92 01/07/19 07:35 01/07/19 07:35 01/07/19 07:35 01/07/19 07:35 01/07/19 07:35 Intake & Output 01/06/19 01/07/19 01/08/19 06:59 06:59 06:59 Intake Total 490 700 Output Total 2000 1500 Balance -1510 -800 Weight 115.7 kg 116.2 kg General appearance: PRESENT: no acute distress Head exam: PRESENT: atraumatic Eye exam: PRESENT: PERRLA Ear exam: PRESENT: normal external ear exam Mouth exam: PRESENT: dry mucosa Neck exam: ABSENT: carotid bruit, JVD, lymphadenopathy, thyromegaly Respiratory exam: PRESENT: decreased breath sounds Cardiovascular exam: PRESENT: RRR. ABSENT: diastolic murmur, rubs, systolic murmur GI/Abdominal exam: PRESENT: normal bowel sounds, soft. ABSENT: distended, guarding, mass, organolmegaly, rebound, tenderness Rectal exam: PRESENT: deferred Extremities exam: PRESENT: full ROM. ABSENT: calf tenderness, clubbing, pedal edema Neurological exam: PRESENT: alert, awake, oriented to person, oriented to place, oriented to time, oriented to situation, CN II-XII grossly intact. ABSENT: motor sensory deficit Psychiatric exam: PRESENT: appropriate affect, normal mood. ABSENT: homicidal ideation, suicidal ideation Results Laboratory Results: 01/06/19 05:04 01/06/19 05:04 01/02/19 01/03/19 01/03/19 07:36 02:47 02:47 Creatine Kinase 77 CK-MB (CK-2) 1.51 Troponin I 0.027 0.040 01/03/19 01/03/19 01/03/19 08:59 08:59 14:36 Creatine Kinase 78 63 CK-MB (CK-2) 1.98 Troponin I 0.029 01/03/19 14:36 Creatine Kinase CK-MB (CK-2) 1.74 Troponin I 0.021 Impressions: Chest X-Ray 01/02/19 07:09 IMPRESSION: Left basilar heterogeneous opacity, which may reflect atelectasis and/or airspace disease and is similar to prior examination. Consider PA and lateral chest radiographs or CT given stated clinical concern for sepsis. Cardiomegaly. Chest CT 01/02/19 11:12 IMPRESSION: Mild atelectatic changes in the left lung. Significant pericardial effusion. Interventional Vascular Procedure 01/03/19 00:00 IMPRESSION: Please see combined report for performance of procedure and radiologic supervision and interpretation. Tunnelled Catheter Removal 01/03/19 00:00 IMPRESSION: IMAGE(S) OBTAINED DURING PROCEDURE. Central Venous Line 01/05/19 00:00 IMPRESSION: IMAGE(S) OBTAINED DURING PROCEDURE. Assessment and Plan - Diagnosis (1) Atrial fibrillation with RVR Is this a current diagnosis for this admission?: Yes Plan: Well-controlled on p.o. Cardizem. He may need to be anticoagulated. 01/06/2019-patient developed A. fib with RVR during the hospital stay and he had a history of chronic atrial fibrillation presently heart rate is well controlled on p.o. Cardizem. Because of the multiple comorbidities and history of hypertension, diabetes mellitus probably I will start him on anticoagulation. 01/07/2019-patient's heart rate is 69. Rate is well controlled on Cardizem p.o. Plan is to continue the present management. plan is to start him on Eliquis from today. (2) HCAP (healthcare-associated pneumonia) Is this a current diagnosis for this admission?: Yes Plan: Less inclined to think now that H CAP was a source of his infection. I will say that this is ruled out. 01/06/2019-differential diagnosis during the admission is HCAP Which is unlikely. 01/07/2019-patient came in with a differential diagnosis H CAP which was unlikely. (3) Hemodialysis catheter infection Is this a current diagnosis for this admission?: Yes Plan: Continue IV antibiotics. Dr. Perla consulted for possible replacement of HD cath. 01/06/2019-the cultures from the catheter site came back MSSA. Presently on cefazolin. 01/07/2019-cultures came back positive for MSSA presently on IV cefazolin. Latest blood cultures from 01/05/2019 are negative. As per ID recommendations patient's need to be on IV antibiotic therapy for 4 weeks from the day of blood cultures negative. likely patient is going to go home on Wednesday after dialysis here. (4) MSSA bacteremia Is this a current diagnosis for this admission?: Yes Plan: In addition to the above, we have arranged for him to go get a LENNIE to rule out endocarditis. 01/06/2019 LENNIE came back negative for vegetation. Presently on cefazolin for MSSA. As per ID recommendations we will give 4 weeks of antibiotic therapy from the date of negative blood cultures. 01/07/2019-patient has MSSA bacteremia had LENNIE done at [facility] and it came back negative for vegetation. (5) Diabetes mellitus type 2 in obese Is this a current diagnosis for this admission?: Yes Plan: Accu-Cheks. Sliding very well. 01/06/2019-patient has history of type 2 diabetes mellitus. His latest blood sugar is 151. Plan is to continue the sliding scale. 01/07/2019-patient has history of type 2 diabetes mellitus. The latest blood sugar is 157. (6) Pericardial effusion Is this a current diagnosis for this admission?: Yes Plan: Minoxidil has been discontinued. I spoke to Dr. Cosmo Perla about whether or not this patient would need a pericardiocentesis. He recommended against it at this time since he felt like it was more likely to be uremic in origin and should respond well to aggressive dialysis. He said that if he would be at risk for tamponade, it would likely happen during dialysis. He said that if it does happen, we should stop dialysis, give him some fluids, and then transfer him 01/06/2019-patient has a pericardial effusion is getting regular dialysis for t his problem. Consultation with Dr. Cosmo Boothe was at done his recommendation is patient does not need any pericardial tap. Meantime his recommendation is aggressive dialysis. He is getting on daily basis. 01/07/2019-patient has a pericardial effusion is not in tamponade. He is getting frequent dialysis for this problem. So far vital signs are stable. (7) Anemia Qualifiers: Chronic kidney disease stage: stage 4 (severe) Is this a current diagnosis for this admission?: No Plan: 01/06/2019-patient has history of anemia of chronic disease most likely secondary to end-stage renal disease. Patient hemoglobin is 9.0. 01/07/2019-patient hemoglobin is 9.0. Anemia of chronic disease most likely secondary to end-stage renal disease. (8) End-stage renal disease on hemodialysis Is this a current diagnosis for this admission?: Yes Plan: Dr. Steele was consulted 01/06/2019-patient is receiving dialysis today. Nephrology on board. 01/07/2019-patient has end-stage renal disease is on dialysis Wednesday last dialysis is on 01/06/2019. (9) Renal mass Is this a current diagnosis for this admission?: No - Time Time Spent with patient: 15-24 minutes Medications reviewed and adjusted accordingly: Yes Anticipated discharge: Home
[2019-01-07] MEDS: ATORVASTATIN CALCIUM 80 MG TABLET PO SCH (22:34)
[2019-01-08] MEDS: DILTIAZEM HCL 90 MG TABLET PO SCH ×4 (06:56→23:50)
[2019-01-08] MEDS ORDERED: HYDROXYZINE HCL PO PRN (07:39)
[2019-01-08] MEDS: INSULIN LISPRO 100 UNIT/ML 3 ML VIAL SUBCUT SCH ×4 (08:42→21:27)
[2019-01-08] MEDS: METOPROLOL TARTRATE 100 MG TABLET PO SCH ×2 (09:12→21:25)
[2019-01-08] MEDS: HEPARIN SOD (PORCINE) 5,000 UNIT/ML 1 ML VIAL SUBCUT SCH ×2 (09:12→21:29)
[2019-01-08] MEDS: AMLODIPINE BESYLATE 10 MG TABLET PO SCH (09:12)
[2019-01-08] MEDS: CALCIUM ACETATE 667 MG CAPSULE PO SCH ×3 (09:12→16:25)
--- NOTE | 2019-01-08 09:52 | PDOC PROGRESS REPORT ---
Subjective Progress Note for:: 01/08/19 Subjective:: 58 year old male with a past medical history of ESRD on MWF dialysis, hypertension, controlled diabetes mellitus, COPD, and ZACH who presented with vomiting and diarrhea. Patient on bedside stated does have chronic diarrhea that he had acute worsening watery stools over the past 2 weeks. He said he was passing out 3-4 episodes of watery, nonbloody stools daily. He also reports of throwing up once yesterday. He denies abdominal pain. noted that he had coughed out some greenish sputum yesterday. No fever chills at home. In the ER, he was noted to have an acute increase in his creatinine from his baseline. No hyperkalemia. He also has leukocytosis. His chest x-ray did show possible left lower lobe pneumonia. Note of area of erythema and drainage around the site of perm cath. 01/06/[id number]-zmjg-old male with history of ESRD on hemodialysis Wednesday, hypertension diabetes mellitus COPD obstructive sleep apnea admitted wit h vomitings and diarrhea cultures found to have MSSA and most likely from the left-sided catheter site which was removed event for the echocardiogram LENNIE today at [facility] results came back negative for vegetation. As per the ID recommendations from the day of negative cultures in need 4 weeks of antibiotic therapy IV. On examination today is comfortably in the dialysis unit communicating well requesting gabapentin for his restless leg syndrome. 01/07/[id number]-gwyw-old male with history of ESRD on hemodialysis Wednesday, hypertension, diabetes mellitus, COPD, obstructive sleep apnea admitted with vomitings and diarrhea. The cultures came back positive for MRSA. Most likely from the dialysis catheter site. The catheter on the left side of the chest was removed and a new catheter was placed on the right side. He is also has a fistula and it is not matured yet. Patient went to [facility] for LENNIE yesterday and the report came back negative for vegetation. As per the ID recommendations patient is going to need IV antibiotic therapy 4 weeks from the day of blood cultures negative. Cultures from 01/05/2019 are negative so far. 01/08/[id number]-tchi-old male with history of fever ESRD on hemodialysis admitted with chronic diarrhea for 2 weeks. Initial x-ray report shows possible left lower lobe pneumonia which Was ruled out. The cultures from the dialysis ca theter site came back positive he was getting cefazolin on daily basis. He went for the echocardiogram on 01/05/2019 report came back negative for endocarditis. The blood work or the blood culture done recently on 01/05/2019 continue to show gram-positive cocci. The plan from the ID is to give cefazolin for 4 weeks from the day after cultures are negative. I am going to talk to Dr. Steele and also with infectious disease Dr. Dr. Westbrook for further management of the persistent blood cultures positive bacteremia. Patient is comfortable in the bed communicating well. Not in distress. Expressing desire to go home. Reason For Visit: ACUTE ON CHRONIC RENAL FAILURE,ACUTE ON CHRONIC Physical Exam Vital Signs: Temp Pulse Resp BP Pulse Ox 97.6 F 72 16 125/90 H 98 01/08/19 08:00 01/08/19 08:00 01/08/19 08:00 01/08/19 08:00 01/08/19 08:00 Intake & Output 01/07/19 01/08/19 01/09/19 06:59 06:59 06:59 Intake Total 700 800 Output Total 1500 Balance -800 800 Weight 116.2 kg 117.5 kg General appearance: PRESENT: no acute distress Head exam: PRESENT: atraumatic Eye exam: PRESENT: PERRLA Mouth exam: PRESENT: moist, tongue midline Teeth exam: PRESENT: poor dentation Neck exam: ABSENT: carotid bruit, JVD, lymphadenopathy, thyromegaly Respiratory exam: PRESENT: clear to auscultation octavia. ABSENT: rales, rhonchi, wheezes Cardiovascular exam: PRESENT: RRR. ABSENT: diastolic murmur, rubs, systolic murmur GI/Abdominal exam: PRESENT: normal bowel sounds, soft. ABSENT: distended, guarding, mass, organolmegaly, rebound, tenderness Rectal exam: PRESENT: deferred Extremities exam: PRESENT: full ROM. ABSENT: calf tenderness, clubbing, pedal edema Neurological exam: PRESENT: alert, awake, oriented to person, oriented to place, oriented to time, oriented to situation, CN II-XII grossly intact. ABSENT: motor sensory deficit Psychiatric exam: PRESENT: appropriate affect, normal mood. ABSENT: homicidal ideation, suicidal ideation Results Laboratory Results: 01/06/19 05:04 01/06/19 05:04 01/02/19 01/03/19 01/03/19 07:36 02:47 02:47 Creatine Kinase 77 CK-MB (CK-2) 1.51 Troponin I 0.027 0.040 01/03/19 01/03/19 01/03/19 08:59 08:59 14:36 Creatine Kinase 78 63 CK-MB (CK-2) 1.98 Troponin I 0.029 01/03/19 14:36 Creatine Kinase CK-MB (CK-2) 1.74 Troponin I 0.021 Impressions: Chest X-Ray 01/02/19 07:09 IMPRESSION: Left basilar heterogeneous opacity, which may reflect atelectasis and/or airspace disease and is similar to prior examination. Consider PA and lateral chest radiographs or CT given stated clinical concern for sepsis. Cardiomegaly. Chest CT 01/02/19 11:12 IMPRESSION: Mild atelectatic changes in the left lung. Significant pericardial effusion. Interventional Vascular Procedure 01/03/19 00:00 IMPRESSION: Please see combined report for performance of procedure and radiologic supervision and interpretation. Tunnelled Catheter Removal 01/03/19 00:00 IMPRESSION: IMAGE(S) OBTAINED DURING PROCEDURE. Central Venous Line 01/05/19 00:00 IMPRESSION: IMAGE(S) OBTAINED DURING PROCEDURE. Assessment and Plan - Diagnosis (1) Atrial fibrillation with RVR Is this a current diagnosis for this admission?: Yes Plan: Well-controlled on p.o. Cardizem. He may need to be anticoagulated. 01/06/2019-patient developed A. fib with RVR during the hospital stay and he had a history of chronic atrial fibrillation presently heart rate is well controlled on p.o. Cardizem. Because of the multiple comorbidities and history of hypertension, diabetes mellitus probably I will start him on anticoagulation. 01/07/2019-patient's heart rate is 69. Rate is well controlled on Cardizem p.o. Plan is to continue the present management. plan is to start him on Eliquis from today. 01/08/2019-patient heart rate today is 71 well-controlled with p.o. Cardizem. A. fib with RVR resolved. (2) HCAP (healthcare-associated pneumonia) Is this a current diagnosis for this admission?: Yes (3) Hemodialysis catheter infection Is this a current diagnosis for this admission?: Yes Plan: Continue IV antibiotics. Dr. Perla consulted for possible replacement of HD cath. 01/06/2019-the cultures from the catheter site came back MSSA. Presently on cefazolin. 01/07/2019-cultures came back positive for MSSA presently on IV cefazolin. Latest blood cultures from 01/05/2019 are negative. As per ID recommendations patient's need to be on IV antibiotic therapy for 4 weeks from the day of blood cultures negative. likely patient is going to go home on Wednesday after dialysis here. 01/08/2019-repeat blood cultures from 01/05/2019 came back positive again. Positive for gram-positive cocci. Patient is presently on cefazolin IV daily. Plan is to reconsult ID tomorrow. And had echocardiogram done on 01/06/2019 at [facility] no evidence of endocarditis noted. (4) MSSA bacteremia Is this a current diagnosis for this admission?: Yes Plan: In addition to the above, we have arranged for him to go get a LENNIE to rule out endocarditis. 01/06/2019 LENNIE came back negative for vegetation. Presently on cefazolin for MSSA. As per ID recommendations we will give 4 weeks of antibiotic therapy from the date of negative blood cultures. 01/07/2019-patient has MSSA bacteremia had LENNIE done at [facility] and it came back negative for vegetation. 01/08/2019-patient has emesis of bacteremia on cefazolin. Plan is to continue IV to antibiotic therapy at this time. (5) Diabetes mellitus type 2 in obese Is this a current diagnosis for this admission?: Yes Plan: Accu-Cheks. Sliding very well. 01/06/2019-patient has history of type 2 diabetes mellitus. His latest blood sugar is 151. Plan is to continue the sliding scale. 01/07/2019-patient has history of type 2 diabetes mellitus. The latest blood sugar is 157. 01/08/2019-patient has history of type 2 diabetes mellitus latest blood sugar is152. Plan is to insulin sliding scale. (6) Pericardial effusion Is this a current diagnosis for this admission?: Yes Plan: Minoxidil has been discontinued. I spoke to Dr. Cosmo Perla about whether or not this patient would need a pericardiocentesis. He recommended against it at this time since he felt like it was more likely to be uremic in origin and should respond well to aggressive dialysis. He said that if he would be at risk for tamponade, it would likely happen during dialysis. He said that if it does happen, we should stop dialysis, give him some fluids, and then transfer him 01/06/2019-patient has a pericardial effusion is getting regular dialysis for this problem. Consultation with Dr. Cosmo Boothe was at done his recommendation is patient does not need any pericardial tap. Meantime his recommendation is aggressive dialysis. He is getting on daily basis. 01/07/2019-patient has a pericardial effusion is not in tamponade. He is getting frequent dialysis for this problem. So far vital signs are stable. 07/11/2018-patient has large pericardial effusion consultation with cardiothoracic surgeon was done the recommendation is to continue the dialysis on regular basis. Patient does not have any signs of cardiac tamponade. (7) Anemia Qualifiers: Chronic kidney disease stage: stage 4 (severe) Is this a current diagnosis for this admission?: No Plan: 01/06/2019-patient has history of anemia of chronic disease most likely secondary to end-stage renal disease. Patient hemoglobin is 9.0. 01/07/2019-patient hemoglobin is 9.0. Anemia of chronic disease most likely secondary to end-stage renal disease. 01/08/2019-patient hemoglobin is 0.0. Anemia of chronic disease most likely secondary to end-stage renal disease. (8) End-stage renal disease on hemodialysis Is this a current diagnosis for this admission?: Yes Plan: Dr. Steele was consulted 01/06/2019-patient is receiving dialysis today. Nephrology on board. 01/07/2019-patient has end-stage renal disease is on dialysis Wednesday last dialysis is on 01/06/2019. (9) Renal mass Is this a current diagnosis for this admission?: No - Time Time Spent with patient: 25-34 minutes Medications reviewed and adjusted accordingly: Yes Anticipated discharge: Home
[2019-01-08] MEDS: DOXAZOSIN MESYLATE 4 MG TABLET PO SCH (10:21)
[2019-01-08] MEDS: CEFAZOLIN 1 GM/D5W RTU 1 GM/50 ML RTUPB IV SCH (17:12)
[2019-01-08] MEDS: ATORVASTATIN CALCIUM 80 MG TABLET PO SCH (21:25)
[2019-01-08] MEDS: GABAPENTIN 100 MG CAPSULE PO PRN (21:25)
[2019-01-08] MEDS: ROPINIROLE HCL 0.25 MG TABLET PO SCH (21:29)
[2019-01-08] MEDS ORDERED: (PENDING PHARMACY ID) (Ropinirole Hcl [Requip] 0.5 MG) PO SCH (22:00)
[2019-01-09] MEDS ORDERED: EPOETIN ALFA INJ 20000 UNIT/1 ML VIAL (RENAL) IV PRN (05:00)
[2019-01-09] MEDS: DILTIAZEM HCL 90 MG TABLET PO SCH ×3 (05:05→18:12)
[2019-01-09 05:47] LABS: HEMATOCRIT 23.2 % (37.9-51.0); MEAN CORPUSCULAR HEMOGLOBIN 30.6 pg (27.0-33.4); MEAN CORPUSCULAR HGB CONC 34.2 g/dL (32.0-36.0); MEAN CORPUSCULAR VOLUME 90 fl (80-97); PLATELET COUNT 219 10^3/uL (150-450); RED BLOOD COUNT 2.59 10^6/uL (4.35-5.55); RED CELL DISTRIBUTION WIDTH 14.4 % (11.5-14.0); WHITE BLOOD COUNT 8.9 10^3/uL (4.0-10.5)
[2019-01-09 06:05] LABS: HEMOGLOBIN 7.9 g/dL (13.5-17.0)
[2019-01-09 06:08] LABS: ABSOLUTE MONOCYTES # (MANUAL) 0.4 10^3/uL (0.1-1.4); BAND NEUTROPHILS % (MANUAL) 2 % (3-5); BASOPHILS % (MANUAL) 0 % (0-2); EOSINOPHILS % (MANUAL) 4 % (0-6); LYMPHOCYTES % (MANUAL) 22 % (13-45); MONOCYTES % (MANUAL) 5 % (3-13); SEGMENTED NEUTROPHILS % (MAN) 62 % (42-78); TOTAL CELLS COUNTED 100
[2019-01-09 06:09] LABS: PLATELET COMMENT ADEQUATE
[2019-01-09 06:10] LABS: ANISOCYTOSIS 2+; POLYCHROMASIA 1+
[2019-01-09 06:12] LABS: METAMYELOCYTES % (MANUAL) 3 % (0); OVALOCYTES SLIGHT; POIKILOCYTOSIS SLIGHT
[2019-01-09 06:13] LABS: MYELOCYTES % (MANUAL) 2 % (0)
[2019-01-09 06:20] LABS: ALANINE AMINOTRANSFERASE 29 U/L (21-72); ALKALINE PHOSPHATASE 83 U/L (38-126); ANION GAP 17 (5-19); ASPARTATE AMINO TRANSFERASE 42 U/L (17-59); BILIRUBIN,DIRECT 0.3 mg/dL (0.0-0.4); BILIRUBIN,TOTAL 0.4 mg/dL (0.2-1.3); BLOOD UREA NITROGEN 71 mg/dL (7-20); CALCIUM 8.3 mg/dL (8.4-10.2); CARBON DIOXIDE 20 mmol/L (22-30); CHLORIDE 98 mmol/L (98-107); GLUCOSE 146 mg/dL (75-110); POTASSIUM 4.1 mmol/L (3.6-5.0); TOTAL PROTEIN 5.6 g/dL (6.3-8.2)
[2019-01-09] MEDS: INSULIN LISPRO 100 UNIT/ML 3 ML VIAL SUBCUT SCH ×4 (07:53→21:24)
[2019-01-09] MEDS ORDERED: EPOETIN ALFA-EPBX 20,000 UNITS (ESRD) in SYRINGE IV PRN (07:55)
[2019-01-09] MEDS: CALCIUM ACETATE 667 MG CAPSULE PO SCH ×3 (07:56→16:13)
[2019-01-09] MEDS ORDERED: ALTEPLASE INJ 2 MG VIAL (CATH CLEARANCE) IV ONE ×2 (10:30→11:15)
[2019-01-09] MEDS ORDERED: ACETAMINOPHEN 325 MG TABLET PO PRN (10:51)
--- NOTE | 2019-01-09 11:29 | PDOC PROGRESS REPORT ---
Subjective Progress Note for:: 01/09/19 Reason For Visit: Patient seen today undergoing dialysis. Unfortunately patient has been having issues with flow through his left femoral PermCath. Dr. Perla was consulted who and was kind enough to come and instill Cathflo and manipulated and got it working for about 30 minutes after which it clotted off again. Further manipulations by me and the thermostat mechanic did not succeed. Therefore dialysis was then aborted. Patient is presently comfortable and denies any history of chest pain or shortness of breath. No complaints of any fever or chills. Labs and medications were reviewed with the patient as well as the treating dialysis nurse.His blood cultures drawn yesterday is currently negative which is encouraging. He is continuing to get IV Ancef daily. Physical Exam Vital Signs: Temp Pulse Resp BP Pulse Ox 98.6 F 75 17 114/62 96 01/09/19 05:05 01/09/19 05:05 01/09/19 05:05 01/09/19 05:05 01/09/19 05:05 Intake & Output 01/08/19 01/09/19 01/10/19 06:59 06:59 06:59 Intake Total 800 1782 Balance 800 1782 Weight 117.5 kg 120.4 kg General appearance: PRESENT: no acute distress Respiratory exam: PRESENT: clear to auscultation octavia. ABSENT: crackles Cardiovascular exam: PRESENT: +S1, +S2. ABSENT: rubs GI/Abdominal exam: PRESENT: normal bowel sounds, soft. ABSENT: organomegaly, tenderness Extremities exam: ABSENT: pedal edema Neurological exam: PRESENT: alert, awake, oriented to person, oriented to place Psychiatric exam: PRESENT: anxious Skin exam: ABSENT: erythema, mottled, rash Results Laboratory Results: 01/09/19 04:56 01/09/19 04:56 01/09/19 01/09/19 04:56 04:56 WBC 8.9 RBC 2.59 L Hgb 7.9 L Hct 23.2 L MCV 90 MCH 30.6 MCHC 34.2 RDW 14.4 H Plt Count 219 Seg Neutrophils % Not Reportable Lymphocytes % Not Reportable Monocytes % Not Reportable Eosinophils % Not Reportable Basophils % Not Reportable Absolute Neutrophils Not Reportable Absolute Lymphocytes Not Reportable Absolute Monocytes Not Reportable Absolute Eosinophils Not Reportable Absolute Basophils Not Reportable Sodium 134.9 L Potassium 4.1 Chloride 98 Carbon Dioxide 20 L Anion Gap 17 BUN 71 H Creatinine 10.40 H Est GFR ( Amer) 6 L Est GFR (Non-Af Amer) 5 L Glucose 146 H Calcium 8.3 L Total Bilirubin 0.4 AST 42 ALT 29 Alkaline Phosphatase 83 Total Protein 5.6 L Albumin 3.0 L 01/05/19 18:40 Blood Blood Culture - Final Staphylococcus Aureus 01/02/19 01/03/19 01/03/19 07:36 02:47 02:47 Creatine Kinase 77 CK-MB (CK-2) 1.51 Troponin I 0.027 0.040 01/03/19 01/03/19 01/03/19 08:59 08:59 14:36 Creatine Kinase 78 63 CK-MB (CK-2) 1.98 Troponin I 0.029 01/03/19 14:36 Creatine Kinase CK-MB (CK-2) 1.74 Troponin I 0.021 Impressions: Chest X-Ray 01/02/19 07:09 IMPRESSION: Left basilar heterogeneous opacity, which may reflect atelectasis and/or airspace disease and is similar to prior examination. Consider PA and lateral chest radiographs or CT given stated clinical concern for sepsis. Cardiomegaly. Chest CT 01/02/19 11:12 IMPRESSION: Mild atelectatic changes in the left lung. Significant pericardial effusion. Interventional Vascular Procedure 01/03/19 00:00 IMPRESSION: Please see combined report for performance of procedure and radiologic supervision and interpretation. Tunnelled Catheter Removal 01/03/19 00:00 IMPRESSION: IMAGE(S) OBTAINED DURING PROCEDURE. Central Venous Line 01/05/19 00:00 IMPRESSION: IMAGE(S) OBTAINED DURING PROCEDURE. Assessment & Plan - Diagnosis (1) Pericardial effusion Is this a current diagnosis for this admission?: Yes Plan: The reasons for pericardial effusion are secondary to that patient has been in the past noncompliant and therefore an uremic element as well as the fact the patient was on long-term minoxidil which has been discontinued. Monitor carefully for acute tamponade physiology. Having daily dialysis through last week is definitely helpful. Unfortunately not having a functioning catheter today is definitely a problem that needs resolution. Discussed with the treating dialysis nurse. (2) Infection of exit site of hemodialysis catheter Is this a current diagnosis for this admission?: Yes Plan: The catheter site was removed and he now has a temporary dialysis catheter was placed in the groin. Blood cultures positive for MSSA. Plan is to administer Ancef for total of 4 weeks. Negative LENNIE report. (3) End-stage renal disease on hemodialysis Is this a current diagnosis for this admission?: Yes Plan: Patient is currently undergoing dialysis being carefully monitored given the fact that he has a moderate pericardial effusion on ECHO. Vital signs are stable . Dialysis is being supervised to ensure safe and smooth procedure. Unfortunately his left femoral dialysis catheter is nonfunctioning. Cathflo was instilled and it worked for 30 minutes or so before it clotted off again. Dr. Perla was consulted who helped initial cathflo and got it working only to be clotted after about 30 minutes of working. He opined that there is not much more that he can do here in this hospital and recommended that the patient be transferred to [facility] where he is already scheduled to have renal biopsy next week. Discuss all of these with his hospitalist Dr. Johnson who was agreed to work to transfer the patient to [facility]. Discussed extensively with the dialysis nurse about keeping blood pressures closely monitored given his moderate-sized pericardial effusion. We will plan to remove 1-2 l as tolerated. (4) Hypertension Is this a current diagnosis for this admission?: Yes Plan: Controlled. Monitor. (5) Obstructive sleep apnea Is this a current diagnosis for this admission?: Yes Plan: As per hospitalist. (6) Renal mass Is this a current diagnosis for this admission?: No Plan: He needs work-up for this and for possible renal biopsy. Patient has however has not kept appointments in the past. He tells me today that his is only made up appointments to be seen at [facility] post discharge in January. (7) Type 2 diabetes mellitus Plan: Advised tight control. (8) Sepsis Plan: Resolved. Patient had MSSA bacteremia and antibiotics have been modified by hospitalist with help from ID.
[2019-01-09] MEDS: AMLODIPINE BESYLATE 10 MG TABLET PO SCH (11:48)
[2019-01-09] MEDS: METOPROLOL TARTRATE 100 MG TABLET PO SCH ×2 (11:48→21:24)
[2019-01-09] MEDS: DOXAZOSIN MESYLATE 4 MG TABLET PO SCH (11:49)
[2019-01-09] MEDS: HEPARIN SOD (PORCINE) 5,000 UNIT/ML 1 ML VIAL SUBCUT SCH ×2 (11:55→21:24)
[2019-01-09] MEDS: GABAPENTIN 100 MG CAPSULE PO PRN (11:58)
[2019-01-09] MEDS: ONDANSETRON HCL INJ/PF 4 MG/2 ML SDV IV PRN (13:57)
[2019-01-09 14:09] LABS: PATH REVIEW PATHOLOGIST REVIEWED
[2019-01-09] MEDS: CEFAZOLIN 1 GM/D5W RTU 1 GM/50 ML RTUPB IV SCH (18:13)
--- NOTE | 2019-01-09 18:22 | PDOC TRANSFER SUMMARY ---
General Admission Date/PCP: 01/02/19 10:19 EDWARD GUTIERREZ MD Resuscitation Status: Full Code - Transfer Diagnosis (1) Atrial fibrillation with RVR Is this a current diagnosis for this admission?: Yes Diagnosis Summary: Well-controlled on p.o. Cardizem. He may need to be anticoagulated. 01/06/2019-patient developed A. fib with RVR during the hospital stay and he had a history of chronic atrial fibrillation presently heart rate is well controlled on p.o. Cardizem. Because of the multiple comorbidities and history of hypertension, diabetes mellitus probably I will start him on anticoagulation. 01/07/2019-patient's heart rate is 69. Rate is well controlled on Cardizem p.o. Plan is to continue the present management. plan is to start him on Eliquis from today. 01/08/2019-patient heart rate today is 71 well-controlled with p.o. Cardizem. A. fib with RVR resolved. 01/09/2019-patient has history of chronic atrial fibrillation and is presently on Cardizem heart rate is well controlled 81. On Eliquis. (2) HCAP (healthcare-associated pneumonia) Is this a current diagnosis for this admission?: Yes Diagnosis Summary: 01/09/2019-hitch Is ruled out to do his hospital stay. (3) Hemodialysis catheter infection Is this a current diagnosis for this admission?: Yes Diagnosis Summary: Continue IV antibiotics. Dr. Perla consulted for possible replacement of HD cath. 01/06/2019-the cultures from the catheter site came back MSSA. Presently on cefazolin. 01/07/2019-cultures came back positive for MSSA presently on IV cefazolin. Latest blood cultures from 01/05/2019 are negative. As per ID recommendations patient's need to be on IV antibiotic therapy for 4 weeks from the day of blood cultures negative. likely patient is going to go home on Wednesday after dialysis here. 01/08/2019-repeat blood cultures from 01/05/2019 came back positive again. Positive for gram-positive cocci. Patient is presently on cefazolin IV daily. Plan is to reconsult ID tomorrow. And had echocardiogram done on 01/06/2019 at [facility] no evidence of endocarditis noted. 01/09/2019-the hemodialysis catheter site cultures came back positive for MSSA. Blood culture positive for MSSA urine cultures positive for MSSA he is on ceftezole and cultures from August 19, [id number] so far negative. (4) MSSA bacteremia Is this a current diagnosis for this admission?: Yes Diagnosis Summary: In addition to the above, we have arranged for him to go get a LENNIE to rule out endocarditis. 01/06/2019 LENNIE came back negative for vegetation. Presently on cefazolin for MSSA. As per ID recommendations we will give 4 weeks of antibiotic therapy from the date of negative blood cultures. 01/07/2019-patient has MSSA bacteremia had LENNIE done at [facility] and it came back negative for vegetation. 01/08/2019-patient has bacteremia on cefazolin. Plan is to continue IV to antibiotic therapy at this time. 01/09/2019-MSSA bacteremia on cefazolin. LENNIE negative for endocarditis. (5) Diabetes mellitus type 2 in obese Is this a current diagnosis for this admission?: Yes Diagnosis Summary: Accu-Cheks. Sliding very well. 01/06/2019-patient has history of type 2 diabetes mellitus. His latest blood sugar is 151. Plan is to continue the sliding scale. 01/07/2019-patient has history of type 2 diabetes mellitus. The latest blood sugar is 157. 01/08/2019-patient has history of type 2 diabetes mellitus latest blood sugar is152. Plan is to insulin sliding scale. 01/09/2019-patient has history of type 2 diabetes mellitus. Blood sugars are r elatively stable. (6) Pericardial effusion Is this a current diagnosis for this admission?: Yes Diagnosis Summary: Minoxidil has been discontinued. I spoke to Dr. Cosmo Perla about whether or not this patient would need a pericardiocentesis. He recommended against it at this time since he felt like it was more likely to be uremic in origin and should respond well to aggressive dialysis. He said that if he would be at risk for tamponade, it would likely happen during dialysis. He said that if it does happen, we should stop dialysis, give him some fluids, and then transfer him 01/06/2019-patient has a pericardial effusion is getting regular dialysis for this problem. Consultation with Dr. Cosmo Boothe was at done his recommendation is patient does not need any pericardial tap. Meantime his recommendation is aggressive dialysis. He is getting on daily basis. 01/07/2019-patient has a pericardial effusion is not in tamponade. He is getting frequent dialysis for this problem. So far vital signs are stable. 01/08/2019-patient has large pericardial effusion consultation with cardiothoracic surgeon was done the recommendation is to continue the dialysis on regular basis. Patient does not have any signs of cardiac tamponade. 01/09/2019-patient is a moderate pericardial effusion is getting the dialysis on regular basis. No signs and symptoms of cardiac tamponade vital signs are stable. (7) Anemia Is this a current diagnosis for this admission?: No Diagnosis Summary: 01/06/2019-patient has history of anemia of chronic disease most likely secondary to end-stage renal disease. Patient hemoglobin is 9.0. 01/07/2019-patient hemoglobin is 9.0. Anemia of chronic disease most likely secondary to end-stage renal disease. 01/08/2019-patient hemoglobin is 9.0. Anemia of chronic disease most likely secondary to end-stage renal disease. 01/09/2019-patient's latest hemoglobin is 7.9 today anemia of chronic disease most likely secondary to end-stage renal disease. (8) End-stage renal disease on hemodialysis Is this a current diagnosis for this admission?: Yes Diagnosis Summary: Dr. Steele was consulted 01/06/2019-patient is receiving dialysis today. Nephrology on board. 01/07/2019-patient has end-stage renal disease is on dialysis Wednesday last dialysis is on 01/06/2019. 01/09/2019-patient has a end-stage renal disease getting dialysis Wednesday. He has a left groin catheter which was not working this morning and Dr. Steele medical office assistant instructor tried TPA unsuccessful. Dr. Steele called me to notify that patient needs to be transferred to a tertiary care facility for further management of his dialysis access placement and need for dialysis tonight or early in the morning. (9) Renal mass Is this a current diagnosis for this admission?: No Diagnosis Summary: He needs work-up for this and for possible renal biopsy. Patient has however has not kept appointments in the past. He tells me today that his is only made up appointments to be seen at [facility] post discharge in January. - Transfer Medications Home Medications: Albuterol Sulfate [Proair HFA Inhalation Aerosol 8.5 gm MDI] 2 puff IH Q6HP PRN 12/13/18 Amlodipine Besylate [Norvasc 10 mg Tablet] 10 mg PO DAILY 12/13/18 Atorvastatin Calcium [Lipitor 80 mg Tablet] 80 mg PO QHS 12/13/18 Calcium Acetate [Phoslo 667 mg Capsule] 2,001 mg PO MEALS 12/13/18 Doxazosin Mesylate [Cardura 4 mg Tablet] 4 mg PO DAILY 12/13/18 Gabapentin [Neurontin 100 mg Capsule] 100 mg PO Q8HP PRN 12/13/18 Hydroxyzine HCl [Atarax 25 mg Tablet] 12.5 mg PO Q8HP PRN 12/13/18 Insulin Aspart [Novolog Insulin (Aspart) 100 unit/mL] 0 unit SUBCUT .SLD SCALE 12/13/18 Metoprolol Tartrate [Lopressor 100 mg Tablet] 100 mg PO Q12 12/13/18 Minoxidil [Loniten 2.5 mg Tablet] 5 mg PO DAILY 12/13/18 Ropinirole HCl [Requip] 0.5 mg PO QHS 12/13/18 Transfer Medications: Current Medications Acetaminophen (Tylenol 325 Mg Tablet) 650 mg PO Q8HP PRN PRN Reason: PAIN OR FEVER > 101 Stop: 02/08/19 10:50 Albuterol/Ipratropium (Duoneb 3 Ml Ampul) 3 ml NEB RTQ4HP PRN PRN Reason: SHORTNESS OF BREATH Stop: 02/01/19 11:23 Amlodipine Besylate (Norvasc 10 Mg Tablet) 10 mg PO DAILY SONU Stop: 02/03/19 10:59 Last Admin: 01/09/19 11:48 Dose: 10 mg Documented by: Atorvastatin Calcium (Lipitor 80 Mg Tablet) 80 mg PO QHS SONU Stop: 02/03/19 21:59 Last Admin: 01/08/19 21:25 Dose: 80 mg Documented by: Calcium Acetate (Phoslo 667 Mg Capsule) 2,001 mg PO MEALS SONU Stop: 02/03/19 11:59 Last Admin: 01/09/19 16:13 Dose: 2,001 mg Documented by: Dextrose (Dextrose Inj 50% Syringe (25 Gm/50 Ml)) 12.5 gm IV PRN PRN; Protocol PRN Reason: FOR BG 50-69 IN ALERT PATIENT Stop: 02/01/19 11:13 Dextrose (Dextrose Inj 50% Syringe (25 Gm/50 Ml)) 25 gm IV PRN PRN; Protocol PRN Reason: PER PROTOCOL Stop: 02/01/19 11:13 Diltiazem HCl (Cardizem 90 Mg Tablet) 90 mg PO Q6 [facility] Stop: 02/03/19 00:00 Last Admin: 01/09/19 11:49 Dose: 90 mg Documented by: Doxazosin Mesylate (Cardura 4 Mg Tablet) 4 mg PO DAILY [facility] Stop: 02/07/19 09:59 Last Admin: 01/09/19 11:49 Dose: 4 mg Documented by: Gabapentin (Neurontin 100 Mg Capsule) 100 mg PO Q8HP PRN PRN Reason: RESTLESS LEG Stop: 02/02/19 23:17 Last Admin: 01/09/19 11:58 Dose: 100 mg Documented by: Glucagon (Glucagen Inj 1 Mg Vial) 1 mg IM PRN PRN; Protocol PRN Reason: Evaluate for BG < 70 Stop: 02/01/19 11:13 Glucose (Glutose 40% Gel 15 Gm Tube) 15 gm PO PRN PRN; Protocol PRN Reason: FOR BG 50-69 IN ALERT PATIENT Stop: 02/01/19 11:13 Glucose (Glutose 40% Gel 15 Gm Tube) 30 gm PO PRN PRN; Protocol PRN Reason: FOR BG < 50 IN ALERT PATIENT Stop: 02/01/19 11:13 Heparin Sodium (Porcine) (Heparin Inj 5,000 Units/Ml 1 Ml Vial) 5,000 unit SUBCUT Q12 [facility] Stop: 02/01/19 21:59 Last Admin: 01/09/19 11:55 Dose: 5,000 unit Documented by: Hydroxyzine HCl (Atarax 2 Mg/Ml Syrup) 12.5 mg PO Q8HP PRN PRN Reason: ITCHING Stop: 02/03/19 07:33 Cefazolin Sodium/Dextrose (Ancef Rtu 1 Gm/D5w 50 Ml Premix Bag) 1 gm in 50 mls @ 100 mls/hr IV QPM [facility] Stop: 01/20/19 17:59 Last Infusion: 01/08/19 17:45 Dose: Infused Documented by: Epoetin Farrukh-epbx 20,000 unit/ (Syringe) 2 mls @ 0 mls/hr IV .DIALYSIS PRN PRN Reason: THIS MED IS NOT "PRN" Stop: 01/09/19 23:59 Last Admin: 01/09/19 11:08 Dose: 20,000 mls/hr Documented by: Insulin Human Lispro (Humalog Insulin 100 Unit/1 Ml 3 Ml Vial) 0 - 12 unit SUBCUT ACHS [facility]; Protocol Stop: 02/01/19 15:59 Last Admin: 01/09/19 16:08 Dose: 6 unit Documented by: Loperamide HCl (Imodium 2 Mg Capsule) 2 mg PO PRN PRN PRN Reason: LOOSE STOOL Stop: 02/02/19 23:18 Last Admin: 01/04/19 21:37 Dose: 2 mg Documented by: Metoprolol Tartrate (Lopressor 100 Mg Tablet) 100 mg PO Q12 [facility] Stop: 02/03/19 10:59 Last Admin: 01/09/19 11:48 Dose: 100 mg Documented by: Ondansetron HCl (Zofran Inj/Pf 4 Mg/2 Ml Sdv) 4 mg IV Q6HP PRN PRN Reason: FOR NAUSEA/VOMITING Stop: 02/01/19 11:15 Last Admin: 01/09/19 13:57 Dose: 4 mg Documented by: Ropinirole HCl (Requip 0.25 Mg Tablet) 0.5 mg PO QHS [facility] Stop: 02/07/19 21:59 Last Admin: 01/08/19 21:29 Dose: Not Given Documented by: Sodium Chloride (Saline Flush 2.5 Ml Monoject Prefil Syrin) 2.5 ml IV Q8 [facility] Stop: 02/01/19 13:59 Last Admin: 01/09/19 14:26 Dose: Not Given Documented by: - Allergies Allergies/Adverse Reactions: povidone-iodine [From Betadine] Allergy (Severe, Verified 12/12/18 12:11) Generalized rash Soap [From Betadine] Allergy (Severe, Verified 12/12/18 12:11) Generalized rash PAPER TAPE Allergy (Uncoded 12/12/18 12:11) Skin Redness Hospital Course Hospital Course: 58 year old male with a past medical history of ESRD on MWF dialysis, hypertension, controlled diabetes mellitus, COPD, and ZACH who presented with vomiting and diarrhea. Patient on bedside stated does have chronic diarrhea that he had acute worsening watery stools over the past 2 weeks. He said he was passing out 3-4 episodes of watery, nonbloody stools daily. He also reports of throwing up once yesterday. He denies abdominal pain. noted that he had coughed out some greenish sputum yesterday. No fever chills at home. In the ER, he was noted to have an acute increase in his creatinine from his baseline. No hyperkalemia. He also has leukocytosis. His chest x-ray did show possible left lower lobe pneumonia. Note of area of erythema and drainage around the site of perm cath. 58 year old male with a past medical history of ESRD on MWF dialysis, hypertension, controlled diabetes mellitus, COPD, and ZACH who presented with vomiting and diarrhea. Patient on bedside stated does have chronic diarrhea that he had acute worsening watery stools over the past 2 weeks. He said he was passing out 3-4 episodes of watery, nonbloody stools daily. He also reports of throwing up once yesterday. He denies abdominal pain. noted that he had coughed out some greenish sputum yesterday. No fever chills at home. In the ER, he was noted to have an acute increase in his creatinine from his baseline. No hyperkalemia. He also has leukocytosis. His chest x-ray did show possible left lower lobe pneumonia. Note of area of erythema and drainage around the site of perm cath. 01/[id number]-[id number]-old male with history of ESRD on hemodialysis Wednesday, hypertension diabetes mellitus COPD obstructive sleep apnea admitted with vomitings and diarrhea cultures found to have MSSA and most likely from the left-sided catheter site which was removed event for the echocardiogram LENNIE today at [facility] results came back negative for vegetation. As per the ID recommendations from the day of negative cultures in need 4 weeks of antibiotic therapy IV. On examination today is comfortably in the dialysis unit communicating well requesting gabapentin for his restless leg syndrome. 01/[id number]-dxqt-old male with history of ESRD on hemodialysis Wednesday, hypertension, diabetes mellitus, COPD, obstructive sleep apnea admitted with vomitings and diarrhea. The cultures came back positive for MRSA. Most likely from the dialysis catheter site. The catheter on the left side of the chest was removed and a new catheter was placed on the right side. He is also has a fistula and it is not matured yet. Patient went to [facility] for LENNIE yesterday and the report came back negative for vegetation. As per the ID recommendations patient is going to need IV antibiotic therapy 4 weeks from the day of blood cultures negative. Cultures from 01/05/2019 are negative so far. 01/[id number]-yglb-old male with history of fever ESRD on hemodialysis admitted with chronic diarrhea for 2 weeks. Initial x-ray report shows possible left lower lobe pneumonia which Was ruled out. The cultures from the dialysis catheter site came back positive he was getting cefazolin on daily basis. He went for the echocardiogram on 01/05/2019 report came back negative for endocarditis. The blood work or the blood culture done recently on 01/05/2019 continue to show gram-positive cocci. The plan from the ID is to give cefazolin for 4 weeks from the day after cultures are negative. I am going to talk to Dr. Steele and also with infectious disease DrDella Westbrook for further management of the persistent blood cultures positive bacteremia. Patient is comfortable in the bed communicating well. Not in distress. Expressing desire to go home. Physical Exam Vital Signs: Temp Pulse Resp BP Pulse Ox 98.4 F 74 20 90/73 L 96 01/09/19 16:01 01/09/19 16:01 01/09/19 16:01 01/09/19 16:01 01/09/19 16:01 Intake & Output 01/08/19 01/09/19 01/10/19 06:59 06:59 06:59 Intake Total 800 1782 760 Balance 800 1782 760 Weight 117.5 kg 120.4 kg General appearance: PRESENT: no acute distress Head exam: PRESENT: atraumatic Results Laboratory Results: 01/09/19 04:56 01/09/19 04:56 01/09/19 01/09/19 04:56 04:56 WBC 8.9 RBC 2.59 L Hgb 7.9 L Hct 23.2 L MCV 90 MCH 30.6 MCHC 34.2 RDW 14.4 H Plt Count 219 Seg Neutrophils % Not Reportable Lymphocytes % Not Reportable Monocytes % Not Reportable Eosinophils % Not Reportable Basophils % Not Reportable Absolute Neutrophils Not Reportable Absolute Lymphocytes Not Reportable Absolute Monocytes Not Reportable Absolute Eosinophils Not Reportable Absolute Basophils Not Reportable Sodium 134.9 L Potassium 4.1 Chloride 98 Carbon Dioxide 20 L Anion Gap 17 BUN 71 H Creatinine 10.40 H Est GFR ( Amer) 6 L Est GFR (Non-Af Amer) 5 L Glucose 146 H Calcium 8.3 L Total Bilirubin 0.4 AST 42 ALT 29 Alkaline Phosphatase 83 Total Protein 5.6 L Albumin 3.0 L 01/05/19 18:40 Blood Blood Culture - Final Staphylococcus Aureus 01/02/19 01/03/19 01/03/19 07:36 02:47 02:47 Creatine Kinase 77 CK-MB (CK-2) 1.51 Troponin I 0.027 0.040 01/03/19 01/03/19 01/03/19 08:59 08:59 14:36 Creatine Kinase 78 63 CK-MB (CK-2) 1.98 Troponin I 0.029 01/03/19 14:36 Creatine Kinase CK-MB (CK-2) 1.74 Troponin I 0.021 Impressions: Chest X-Ray 01/02/19 07:09 IMPRESSION: Left basilar heterogeneous opacity, which may reflect atelectasis and/or airspace disease and is similar to prior examination. Consider PA and lateral chest radiographs or CT given stated clinical concern for sepsis. Cardiomegaly. Chest CT 01/02/19 11:12 IMPRESSION: Mild atelectatic changes in the left lung. Significant pericardial effusion. Interventional Vascular Procedure 01/03/19 00:00 IMPRESSION: Please see combined report for performance of procedure and radiologic supervision and interpretation. Tunnelled Catheter Removal 01/03/19 00:00 IMPRESSION: IMAGE(S) OBTAINED DURING PROCEDURE. Central Venous Line 01/05/19 00:00 IMPRESSION: IMAGE(S) OBTAINED DURING PROCEDURE. Plan Discharge Plan: Patient is going to be transferred to [facility]. Time Spent: Greater than 30 Minutes
[2019-01-09 20:26] VITALS: BP 125/61
[2019-01-09] MEDS: ATORVASTATIN CALCIUM 80 MG TABLET PO SCH (21:24)
[2019-01-09] MEDS: ROPINIROLE HCL 0.25 MG TABLET PO SCH (21:25)
[2019-01-10] MEDS ORDERED: APIXABAN 5 MG TABLET PO SCH (10:00)
== END 2019-01-09 21:56 | disposition short-term general hospital (02) | DRG 252 ==
LOC: ER 07:06 → OBSVTOIN 10:19 → EH 10:19 → INTOOBSV 10:19 → EH 10:19 → UNDOADMOB 10:19 → 4N 12:34 → ICU 01-03 03:26 → 4N 01-05 13:25
PROVIDERS: ADMIT Internal Medicine; ATTEND Internal Medicine
PROC: 05PY03Z Removal of Infusion Device from Upper Vein, Open Approach (ICD-10-PCS; principal; 2019-01-03)
PROC: 0JPT0WZ Removal of Totally Implantable Vascular Access Device from Trunk Subcutaneous Tissue and Fascia, Open Approach (ICD-10-PCS; 2019-01-03)
PROC: 06H033Z Insertion of Infusion Device into Inferior Vena Cava, Percutaneous Approach (ICD-10-PCS; 2019-01-03)
PROC: B549ZZA Ultrasonography of Inferior Vena Cava, Guidance (ICD-10-PCS; 2019-01-03)
PROC: 5A1D70Z Performance of Urinary Filtration, Intermittent, Less than 6 Hours Per Day (ICD-10-PCS; 2019-01-03)
PROC: 5A1D70Z Performance of Urinary Filtration, Intermittent, Less than 6 Hours Per Day (ICD-10-PCS; 2019-01-04)
PROC: 0JH Subcutaneous Tissue and Fascia, Insertion (ICD-10-PCS; 2019-01-05)
PROC: 06H033Z Insertion of Infusion Device into Inferior Vena Cava, Percutaneous Approach (ICD-10-PCS; 2019-01-05)
PROC: B549ZZA Ultrasonography of Inferior Vena Cava, Guidance (ICD-10-PCS; 2019-01-05)
PROC: 5A1D70Z Performance of Urinary Filtration, Intermittent, Less than 6 Hours Per Day (ICD-10-PCS; 2019-01-05)
PROC: B513ZZZ Fluoroscopy of Right Jugular Veins (ICD-10-PCS; 2019-01-05)
PROC: 05JY3ZZ Inspection of Upper Vein, Percutaneous Approach (ICD-10-PCS; 2019-01-05)
PROC: 5A1D70Z Performance of Urinary Filtration, Intermittent, Less than 6 Hours Per Day (ICD-10-PCS; 2019-01-06)
PROC: 5A1D70Z Performance of Urinary Filtration, Intermittent, Less than 6 Hours Per Day (ICD-10-PCS; 2019-01-09)
DX: T82.7XXA Infection and inflammatory reaction due to other cardiac and vascular devices, implants and grafts, initial encounter (principal); N18.6 End stage renal disease; N17.9 Acute kidney failure, unspecified; I12.0 Hypertensive chronic kidney disease with stage 5 chronic kidney disease or end stage renal disease; I31.3 Pericardial effusion (noninflammatory); R78.81 Bacteremia; E78.5 Hyperlipidemia, unspecified; I87.8 Other specified disorders of veins; E11.22 Type 2 diabetes mellitus with diabetic chronic kidney disease; K21.9 Gastro-esophageal reflux disease without esophagitis; L30.9 Dermatitis, unspecified; Z99.2 Dependence on renal dialysis; F32.9 Major depressive disorder, single episode, unspecified; I48.2 Chronic atrial fibrillation; B95.61 Methicillin susceptible Staphylococcus aureus infection as the cause of diseases classified elsewhere; T82.868A Thrombosis due to vascular prosthetic devices, implants and grafts, initial encounter; G47.33 Obstructive sleep apnea (adult) (pediatric); Y84.8 Other medical procedures as the cause of abnormal reaction of the patient, or of later complication, without mention of misadventure at the time of the procedure; M10.9 Gout, unspecified; Z79.51 Long term (current) use of inhaled steroids; Z82.49 Family history of ischemic heart disease and other diseases of the circulatory system; M19.042 Primary osteoarthritis, left hand; M19.041 Primary osteoarthritis, right hand; Z98.42 Cataract extraction status, left eye; Z98.41 Cataract extraction status, right eye; N28.89 Other specified disorders of kidney and ureter; J44.9 Chronic obstructive pulmonary disease, unspecified; D63.1 Anemia in chronic kidney disease; Y83.2 Surgical operation with anastomosis, bypass or graft as the cause of abnormal reaction of the patient, or of later complication, without mention of misadventure at the time of the procedure; K52.9 Noninfective gastroenteritis and colitis, unspecified; Z79.4 Long term (current) use of insulin; Z90.49 Acquired absence of other specified parts of digestive tract; Z91.048 Other nonmedicinal substance allergy status
CPT/HCPCS: 36415; 36556; 36558; 36589; 71045; 71250; 76937; 77001; 80048; 80053; 80202; 81001; 82550; 82553; 82803; 82962; 83605; 84484; 85025; 85027; 85610; 87040; 87070; 87077; 87086; 87088; 87186; 87205; 87493; 93005; 93010; 93306; 96360; 99291; C1713; C1750; C1752; J0690; J0692; J1644; J1815; J2250; J2405; J2543; J2997; J3010; J3370; J3490; J7030; J7040; J7060; Q5105; Q9967

== ENCOUNTER 2019-03-06 12:08 | Emergency (ER) | payer MEDICARE, BC ==
--- NOTE | 2019-03-06 12:26 | ER Document Report ---
ED Medical Screen (RME) - General Chief Complaint: Dialysis Catheter Problem Stated Complaint: PORT PROBLEM Time Seen by Provider: 03/06/19 12:14 Primary Care Provider: EDWARD GUTIERREZ MD [Primary Care Provider] - Follow up as needed Notes: 58-year-old male with end-stage renal disease presents to the emergency department for chief complaint of a catheter problem. Patient is in the process of fistula placement in his left upper extremity and in the interim he was being dialyzed through a tunneled catheter in his right groin. Patient states the catheter got caught on something and it "came out a little bit". Patient is supposed to have the catheter removed tomorrow by Dr. Paula at [facility]. Exam: Well-appearing in no acute distress, skin color pink, skin is warm and dry. Unable to visualize the catheter in triage as patient is wearing shorts that restrict visualization, to be deferred in the exam room when he can get a gown on. I have greeted and performed a rapid initial assessment of this patient. A comprehensive ED assessment and evaluation of the patient, analysis of test results and completion of medical decision making process will be conducted by an additional ED providers. TRAVEL OUTSIDE OF THE [place] IN LAST 30 DAYS: No - Related Data Allergies/Adverse Reactions: povidone-iodine [From Betadine] Allergy (Severe, Verified 12/12/18 12:11) Generalized rash Soap [From Betadine] Allergy (Severe, Verified 12/12/18 12:11) Generalized rash PAPER TAPE Allergy (Uncoded 12/12/18 12:11) Skin Redness Past Medical History - Social History Family history: Reviewed & Not Pertinent - Past Medical History Cardiac Medical History: Reports: Hx Hypercholesterolemia, Hx Hypertension - ON MEDS Denies: Hx Coronary Artery Disease, Hx Heart Attack Pulmonary Medical History: Reports: Hx Asthma - Mild intermittent, PRN inhaler use for treatment, Hx COPD, Hx Pneumonia, Hx Sleep Apnea Denies: Hx Bronchitis Neurological Medical History: Denies: Hx Cerebrovascular Accident, Hx Seizures Endocrine Medical History: Reports: Hx Diabetes Mellitus Type 2. Denies: Hx Diabetes Mellitus Type 1, Hx Hyperthyroidism, Hx Hypothyroidism Renal/ Medical History: Reports: Hx End Stage Renal Disease, Hx Kidney Stones - kidney disease. Denies: Hx Peritoneal Dialysis GI Medical History: Reports: Hx Gastroesophageal Reflux Disease. Denies: Hx Cirrhosis, Hx Hepatitis Musculoskeltal Medical History: Reports Hx Arthritis - hands, KNEES, Reports Hx Gout Skin Medical History: Reports Hx Eczema Psychiatric Medical History: Reports: Hx Depression Infectious Medical History: Denies: Hx Hepatitis Past Surgical History: Reports: Hx Appendectomy, Hx Kidney (Renal Surgery) - left kidney removed, Hx Tonsillectomy, Hx Vascular Surgery - PermCath placement for dialysis, Other - bilateral cataract extraction with insertion of lens - Immunizations Immunizations up to date: Yes Hx Diphtheria, Pertussis, Tetanus Vaccination: Yes History of Influenza Vaccine for 03/2017 - 08/2017 Season: Yes Influenza Administration Date for 03/2017 - 08/2017 Season: 03/14/17 Doctor's Discharge - Discharge Referrals: EDWARD GUTIERREZ MD [Primary Care Provider] - Follow up as needed
[2019-03-06] MEDS ORDERED: OXYCODONE-ACETAMINOPHEN 5-325 MG TABLET PO ONE (13:24)
--- NOTE | 2019-03-06 13:24 | ER Document Report ---
ED General - General Chief Complaint: Other Stated Complaint: PORT PROBLEM Time Seen by Provider: 03/06/19 12:14 Primary Care Provider: EDWARD GUTIERREZ MD [ACTIVE STAFF] - Follow up as needed TRAVEL OUTSIDE OF THE [place] IN LAST 30 DAYS: No - HPI Notes: Patient is a 58-year-old dialysis patient who presents to the emergency department for evaluation. He had a right tunneled catheter in his right groin, through which she was receiving dialysis. He now has an AV fistula in the left upper extremity. He was actually dialyzed from that fistula today. He states he was supposed to have the tunneled catheter removed by Dr. Palua, physician and [facility], tomorrow. He states he was pulling down his pants and partially dislodged the catheter. He denies any bleeding. The patient states he is feeling weak, but states this is normal after being dialyzed. He had some diarrhea over the weekend, but states that this is improved. Otherwise he states he is at baseline, denies any pain. - Related Data Allergies/Adverse Reactions: povidone-iodine [From Betadine] Allergy (Severe, Verified 12/12/18 12:11) Generalized rash Soap [From Betadine] Allergy (Severe, Verified 12/12/18 12:11) Generalized rash PAPER TAPE Allergy (Uncoded 12/12/18 12:11) Skin Redness Home Medications: Minoxidil 2.5 mg twice daily, Toprol 100 mg twice daily, hydroxyzine 25 mg 3 times daily as needed, Neurontin 100 mg 3 times daily, doxazosin 4 mg daily, diltiazem 120 mg daily, atorvastatin 80 mg daily, Eliquis 5 mill grams daily, sodium polystyrene, Ventolin Past Medical History - General Information source: Patient - Social History Smoking Status: Never Smoker Family History: CAD, Other - Renal failure Patient has suicidal ideation: No Patient has homicidal ideation: No - Past Medical History Cardiac Medical History: Reports: Hx Hypercholesterolemia, Hx Hypertension - ON MEDS Denies: Hx Coronary Artery Disease, Hx Heart Attack Pulmonary Medical History: Reports: Hx Asthma - Mild intermittent, PRN inhaler use for treatment, Hx COPD, Hx Pneumonia, Hx Sleep Apnea Denies: Hx Bronchitis Neurological Medical History: Denies: Hx Cerebrovascular Accident, Hx Seizures Endocrine Medical History: Reports: Hx Diabetes Mellitus Type 2. Denies: Hx Diabetes Mellitus Type 1, Hx Hyperthyroidism, Hx Hypothyroidism Renal/ Medical History: Reports: Hx End Stage Renal Disease, Hx Kidney Stones - kidney disease. Denies: Hx Peritoneal Dialysis GI Medical History: Reports: Hx Gastroesophageal Reflux Disease. Denies: Hx Cirrhosis, Hx Hepatitis Musculoskeletal Medical History: Reports Hx Arthritis - hands, KNEES, Reports Hx Gout Skin Medical History: Reports Hx Eczema Psychiatric Medical History: Reports: Hx Depression Infectious Medical History: Denies: Hx Hepatitis Past Surgical History: Reports: Hx Appendectomy, Hx Kidney (Renal Surgery) - left kidney removed, Hx Tonsillectomy, Hx Vascular Surgery - PermCath placement for dialysis, Other - bilateral cataract extraction with insertion of lens - Immunizations Immunizations up to date: Yes Hx Diphtheria, Pertussis, Tetanus Vaccination: Yes Hx Pneumococcal Vaccination: 03/14/18 Review of Systems - Review of Systems Constitutional: See HPI EENT: No symptoms reported Cardiovascular: No symptoms reported Respiratory: No symptoms reported Gastrointestinal: No symptoms reported Genitourinary: No symptoms reported Musculoskeletal: No symptoms reported Skin: No symptoms reported Neurological/Psychological: No symptoms reported Physical Exam - Vital signs Vitals: Temp Pulse Resp BP Pulse Ox 97.4 F 75 21 H 140/73 H 99 03/06/19 12:17 03/06/19 12:17 03/06/19 12:17 03/06/19 12:17 03/06/19 12:17 - Notes Notes: Is a pleasant 58-year-old male who appears his stated age in no acute distress. Head is normal cephalic and atraumatic. Oral mucosa is moist. Heart is irregularly irregular, lungs are clear to auscultation bilaterally. Abdomen soft, nontender, normoactive bowel sounds. Patient does have an AV fistula with palpable thrill in the left upper extremity without overlying erythema. There is bandage in place, this was left intact. Examination of the right lower extremity ear looks a nearly fully removed tunneled catheter from the right groin. There is no active bleeding. There is one suture still in place. No surrounding erythema, edema, induration. Neurovascularly intact distally. Course - Re-evaluation Re-evalutation: 03/06/19 13:24 Patient presents emergency department for evaluation. The tunneled catheter in his right groin is nearly almost entirely removed. I will speak with Dr. Paula at [facility] regarding the entire removal of this catheter. Patient request something for pain for possible procedure. He is given Percocet, we will continue to monitor. 03/06/19 15:15 At 1400, I spoke with Dr. Us, Dr. Paula's partner. He agrees with catheter removal. I explained this procedure in great detail to the patient and his , they agree to removal. Please see separate procedure note. Procedure went without difficulty. Patient is discharged to follow-up with nephrology. - Vital Signs Vital signs: Temp Pulse Resp BP Pulse Ox 98.0 F 69 16 108/66 100 03/06/19 15:37 03/06/19 15:37 03/06/19 15:37 03/06/19 15:37 03/06/19 15:37 Procedures - Additional Procedures Removal of right groin tunneled catheter Notes: 03/06/19 15:16 The procedure was explained in great detail, questions were sought and answered. Consent was signed and placed on the chart. The area was thoroughly cleansed using chlorhexidine secondary to the patient's Betadine allergy. The patient was placed in Trendelenburg, instructed to perform the Valsalva maneuver. Using sterile technique, the tunneled catheter was removed with 1 quick motion, no bleeding, discomfort from patient. The catheter was examined following removal and found to be completely intact. The area was again cleansed, dressed with a significant amount of antibiotic ointment, then Vaseline gauze placed. Patient tolerated this well without any difficulties or complications. Discharge - Discharge Clinical Impression: Right femoral catheter removal, Problem with intravenous catheter Condition: Stable Disposition: HOME, SELF-CARE Additional Instructions: Keep bandage intact. If you develop bleeding, increased redness, fevers, drainage, or any other new or concerning symptoms, return immediately to the emergency department for reevaluation. Otherwise, continue your dialysis as scheduled and follow-up with nephrology. Referrals: EDWARD GUTIERREZ MD [ACTIVE STAFF] - Follow up as needed
[2019-03-06 15:40] VITALS: BP 108/66
== END 2019-03-06 15:39 | disposition home or self-care (01) ==
LOC: ER 12:08
PROC: 06PYX3Z Removal of Infusion Device from Lower Vein, External Approach (ICD-10-PCS; principal; 2019-03-06)
DX: I77.0 Arteriovenous fistula, acquired (principal); R53.1 Weakness; R19.7 Diarrhea, unspecified; I10 Essential (primary) hypertension; Z79.899 Other long term (current) drug therapy; J45.909 Unspecified asthma, uncomplicated; E11.9 Type 2 diabetes mellitus without complications
CPT/HCPCS: 99283; 36589; A9270

== ENCOUNTER 2020-04-12 06:07 | Emergency (ER) | payer MEDICARE ==
--- NOTE | 2020-04-12 07:52 | RADIOLOGY REPORT (SQ) ---
CLINICAL HISTORY: hemodialysis patient COMPARISON: 01/02/2019. TECHNIQUE: XR CHEST 1 VIEW 04/12/2020 7:14 AM CDT FINDINGS: The heart is enlarged. Lungs are clear without consolidation, atelectasis, mass or edema. There is no pleural effusion. There is no pneumothorax. There are no acute osseous findings. IMPRESSION: Clear lungs.
--- NOTE | 2020-04-12 08:19 | RADIOLOGY REPORT (SQ) ---
EXAM DESCRIPTION: CT HEAD WITHOUT IMAGES COMPLETED DATE/TIME: 04/12/2020 8:03 am REASON FOR STUDY: AMS/generalized weakness COMPARISON: 12/12/2018 TECHNIQUE: Axial images acquired through the brain without intravenous contrast. Images reviewed wi th bone, brain and subdural windows. Additional sagittal and coronal reconstructions were generated. Images stored on PACS. All CT scanners at this facility use dose modulation, iterative reconstruction, and/or weight based d osing when appropriate to reduce radiation dose to as low as reasonably achievable (ALARA). [facility]: Dose Right [facility]: CareDose [facility]: Dose Right [facility]: Teradose 4D [facility]: [employer] RADIATION DOSE: CT Rad equipment meets quality standard of care and radiation dose reduction techniq ues were employed. CTDIvol: 53.2 mGy. DLP: 1044 mGy-cm. mGy. LIMITATIONS: None. FINDINGS: VENTRICLES: Prominent. CEREBRUM: No masses. No hemorrhage. No midline shift. Areas of low density in the white matter mos t likely due to chronic micro-vascular ischemic change. No evidence for acute infarction. CEREBELLUM: No masses. No hemorrhage. No alteration of density. No evidence for acute infarction. EXTRAAXIAL SPACES: Mild age-related involutional change. No fluid collections. No masses. ORBITS AND GLOBE: No intra- or extraconal masses. Normal contour of globe without masses. CALVARIUM: No fracture. PARANASAL SINUSES: No fluid or mucosal thickening. SOFT TISSUES: No mass or hematoma. OTHER: No other significant finding. IMPRESSION: MILD CHRONIC CHANGES OF ATROPHY AND MICROVASCULAR ISCHEMIA. NO ACUTE PROCESS. EVIDENCE OF ACUTE STROKE: NO. TECHNICAL DOCUMENTATION: JOB ID: [id number] Quality ID # [id number]: Final reports with documentation of one or more dose reduction techniques (e.g., Au tomated exposure control, adjustment of the mA and/or kV according to patient size, use of iterative reconstruction technique) 2010 [employer]- All Rights Reserved Reading location - IP/workstation name: [email or web address]
--- NOTE | 2020-04-12 08:21 | RADIOLOGY REPORT (SQ) ---
EXAM DESCRIPTION: CT CERVICAL SPINE WITHOUT IMAGES COMPLETED DATE/TIME: 04/12/2020 8:03 am REASON FOR STUDY: bilat upper and lower ext weakness COMPARISON: None. TECHNIQUE: Axial images acquired through the cervical spine without intravenous contrast. Images re viewed with lung, soft tissue and bone windows. Reconstructed coronal and sagittal MPR images review ed. Images stored on PACS. All CT scanners at this facility use dose modulation, iterative reconstruction, and/or weight based d osing when appropriate to reduce radiation dose to as low as reasonably achievable (ALARA). [facility]: Dose Right [facility]: CareDose [facility]: Dose Right [facility]: Teradose 4D [facility]: [employer] RADIATION DOSE: CT Rad equipment meets quality standard of care and radiation dose reduction techniq ues were employed. CTDIvol: 28.2 mGy. DLP: 643 mGy-cm. mGy. LIMITATIONS: None. FINDINGS: ALIGNMENT: Anatomic. MINERALIZATION: Normal. VERTEBRAL BODIES: No fractures or dislocation. DISCS: No significant disc disease. FACETS, LATERAL MASSES, POSTERIOR ELEMENTS: No fractures. No dislocation. No acute findings. HARDWARE: None in the spine. VISUALIZED RIBS: No fractures. LUNG APICES AND SOFT TISSUES: No significant or acute findings. OTHER: No other significant finding. IMPRESSION: NO ACUTE OR SIGNIFICANT FINDINGS IN THE CERVICAL SPINE. TECHNICAL DOCUMENTATION: JOB ID: [id number] Quality ID # [id number]: Final reports with documentation of one or more dose reduction techniques (e.g., Au tomated exposure control, adjustment of the mA and/or kV according to patient size, use of iterative reconstruction technique) 2010 [employer]- All Rights Reserved Reading location - IP/workstation name: [email or web address]
--- NOTE | 2020-04-12 08:51 | EKG REPORT ---
SEVERITY:- ABNORMAL ECG - SINUS RHYTHM FIRST DEGREE AV BLOCK NONSPECIFIC IVCD WITH LAD INFERIOR INFARCT, AGE INDETERMINATE CONSIDER ANTEROSEPTAL INFARCT : Confirmed by: Cj Busch MD 12-Apr-2020 08:50:24
[2020-04-12 09:00] LABS: PROTHROMBIN TIME 17.3 SEC (11.4-15.4)
[2020-04-12 09:01] LABS: VENOUS BLOOD BASE EXCESS -3.6 mmol/L; VENOUS BLOOD HCO3 22.4 mmol/L (20-32); VENOUS BLOOD PCO2 44.2 mmHg (35-63); VENOUS BLOOD PH 7.32 (7.30-7.42)
[2020-04-12 09:04] LABS: ABSOLUTE BASOPHILS # (AUTO) 0.1 10^3/uL (0.0-0.2); ABSOLUTE LYMPHOCYTES (AUTO) 1.3 10^3/uL (0.5-4.7); ABSOLUTE MONOCYTES (AUTO) 0.8 10^3/uL (0.1-1.4); ABSOLUTE NEUT (AUTO) 12.9 10^3/uL (1.7-8.2); BASOPHILS % (AUTO) 0.9 % (0-2); EOSINOPHILS % (AUTO) 0.2 % (0-6); HEMATOCRIT 36.8 % (37.9-51.0); HEMOGLOBIN 12.4 g/dL (13.5-17.0); LYMPHOCYTES % (AUTO) 8.7 % (13-45); MEAN CORPUSCULAR HGB CONC 33.7 g/dL (32.0-36.0); MEAN CORPUSCULAR VOLUME 95 fl (80-97); MONOCYTES % (AUTO) 5.3 % (3-13); PLATELET COUNT 220 10^3/uL (150-450); RED BLOOD COUNT 3.88 10^6/uL (4.35-5.55); RED CELL DISTRIBUTION WIDTH 13.7 % (11.5-14.0); SEGMENTED NEUTROPHILS % (AUTO) 84.9 % (42-78); TOTAL CELLS COUNTED % (AUTO) 100 %; WHITE BLOOD COUNT 15.2 10^3/uL (4.0-10.5)
[2020-04-12 09:09] LABS: PARTIAL THROMBOPLASTIN TIME 93.3 SEC (23.5-35.8)
[2020-04-12 09:19] LABS: ACETAMINOPHEN < 10 ug/mL (10-30); ALBUMIN 4.8 g/dL (3.5-5.0); ALCOHOL < 10 mg/dL (NONE DETECTED); ALKALINE PHOSPHATASE 98 U/L (38-126); ASPARTATE AMINO TRANSFERASE 15 U/L (17-59); BILIRUBIN,DIRECT 0.5 mg/dL (0.0-0.4); BILIRUBIN,TOTAL 0.9 mg/dL (0.2-1.3); BLOOD UREA NITROGEN 75 mg/dL (7-20); CARBON DIOXIDE 22 mmol/L (22-30); CHLORIDE 98 mmol/L (98-107); CREATINE KINASE 92 U/L (55-170); GLUCOSE 256 mg/dL (75-110); TOTAL PROTEIN 7.6 g/dL (6.3-8.2)
[2020-04-12 09:23] LABS: ANION GAP 19 (5-19)
[2020-04-12 09:28] LABS: POTASSIUM 6.4 mmol/L (3.6-5.0)
[2020-04-12] MEDS ORDERED: SODIUM BICARBONATE 8.4% INJ 50 MEQ/50 ML DISP.SYRIN IV ONE (09:29)
[2020-04-12] MEDS ORDERED: CALCIUM GLUCONATE 1000 MG/10 ML INJ IV ONE (09:30)
[2020-04-12] MEDS ORDERED: DEXTROSE 50%-WATER 25 GM/50 ML DISP.SYRIN IV ONE (09:30)
[2020-04-12] MEDS ORDERED: INSULIN REG, HUMAN 100 UNIT/ML 3 ML VIAL (PYX) IV ONE (09:31)
[2020-04-12 09:37] LABS: NT PRO BNP 4750 pg/mL (<125)
[2020-04-12 09:38] LABS: TROPONIN I < 0.012 ng/mL
--- NOTE | 2020-04-12 10:32 | ER Document Report ---
Entered by NEAL SARKAR SCRIBE 04/12/20 0707 Acting as scribe for:MAGALI ZAMARRIPA MD ED General - General Chief Complaint: Weakness Stated Complaint: FEVER,WEAKNESS,BLOOD PRESSURE ISSUES Time Seen by Provider: 04/12/20 06:48 Primary Care Provider: EDWARD GUTIERREZ MD [ACTIVE STAFF] - Follow up as needed Mode of Arrival: Ambulatory Information source: Patient Notes: This 59 year old male patient with history of hypertension, type 2 diabetes mellitus, ESRD on HD (MWF, last 04/10), and CKD stage IV presents to the ED today with complaints of generalized weakness that started this morning. Patient states that he felt fine before he went to bed last night. at bedside states that the patient usually takes his medications BID, in the morning and before bed; however, the patient took what she believes is a double dose of some medication around 0200 this morning. He notes that he did not check his blood sugar this morning and that he ate a peanut butter and jelly sandwich around 0500 this morning. Denies headache, dizziness, or abdominal pain. TRAVEL OUTSIDE OF THE [place] IN LAST 30 DAYS: No - Related Data Allergies/Adverse Reactions: povidone-iodine [From Betadine] Allergy (Severe, Verified 12/12/18 12:11) Generalized rash Soap [From Betadine] Allergy (Severe, Verified 12/12/18 12:11) Generalized rash PAPER TAPE Allergy (Uncoded 12/12/18 12:11) Skin Redness Past Medical History - General Information source: Patient, [facility] Records - Social History Smoking Status: Never Smoker Cigarette use (# per day): No Chew tobacco use (# tins/day): No Smoking Education Provided: No Lives with: Spouse/Significant other Family History: Reviewed & Not Pertinent, CAD, Other - Renal failure - Past Medical History Cardiac Medical History: Reports: Hx Hypercholesterolemia, Hx Hypertension - ON MEDS Pulmonary Medical History: Reports: Hx Asthma - Mild intermittent, PRN inhaler use for treatment, Hx COPD, Hx Pneumonia, Hx Sleep Apnea Endocrine Medical History: Reports: Hx Diabetes Mellitus Type 2 Renal/ Medical History: Reports: Hx End Stage Renal Disease, Hx Hemodialysis, Hx Kidney Stones - kidney disease GI Medical History: Reports: Hx Gastroesophageal Reflux Disease Musculoskeletal Medical History: Reports Hx Arthritis - hands, KNEES, Reports Hx Gout Skin Medical History: Reports Hx Eczema Psychiatric Medical History: Reports: Hx Depression Past Surgical History: Reports: Hx Appendectomy, Hx Kidney (Renal Surgery) - left kidney removed, Hx Tonsillectomy, Hx Vascular Surgery - PermCath placement for dialysis, Other - bilateral cataract extraction with insertion of lens - Immunizations Immunizations up to date: Yes Hx Diphtheria, Pertussis, Tetanus Vaccination: Yes Hx Pneumococcal Vaccination: 03/14/18 Review of Systems - Review of Systems Constitutional: See HPI, Weakness EENT: No symptoms reported Cardiovascular: See HPI. denies: Dizziness Respiratory: No symptoms reported Gastrointestinal: See HPI. denies: Abdominal pain Genitourinary: No symptoms reported Male Genitourinary: No symptoms reported Musculoskeletal: No symptoms reported Skin: No symptoms reported Hematologic/Lymphatic: No symptoms reported Neurological/Psychological: No symptoms reported -: Yes All other systems reviewed and negative Physical Exam - Vital signs Vitals: Temp Pulse Resp BP Pulse Ox 98.3 F 87 24 H 109/63 97 04/12/20 06:17 04/12/20 06:17 04/12/20 06:17 04/12/20 06:17 04/12/20 06:17 - General General appearance: Alert In distress: None - HEENT Head: Normocephalic, Atraumatic Eyes: Normal Pupils: PERRL Mouth/Lips: Other - Poor dentition Neck: Normal, Supple - Respiratory Respiratory status: No respiratory distress Chest status: Nontender Breath sounds: Normal Chest palpation: Normal - Cardiovascular Rhythm: Regular Heart sounds: Normal auscultation Murmur: No Friction rub: No Gallop: None auscultated - Abdominal Inspection: Obese Distension: No distension Bowel sounds: Normal Tenderness: Nontender - Abdomen soft Organomegaly: No organomegaly - Back Back: Normal, Nontender - Extremities General upper extremity: Normal inspection General lower extremity: Normal inspection. No: Edema - Neurological Neuro grossly intact: Yes Cognition: Normal Orientation: AAOx4 Cranial nerves: Normal Cerebellar coordination: Finger-nose rhombey - Better with RUE than LUE Additional motor exam normals: Equal manager spanish - 4/5, Weakness - Patient is unable to lift BLE Sensory: Normal Notes: Diminished gag reflex - Psychological Associated symptoms: Normal affect, Normal mood - Skin Skin Temperature: Warm Skin Moisture: Dry Skin Color: Normal Course - Re-evaluation Re-evalutation: 04/12/20 10:25 Patient is hemodynamically stable resting comfortably at this time. Patient's weakness in his upper extremities have improved as well as lower extremity weakness. Patient is back to his baseline at this time this exam is corroborated by patient's that he is appearing back to his normal self at this time. Patient was found to have an elevated white blood cell count and a potassium of 6.4. No evidence for infection was found chest x-ray is completely normal no evidence of CHF. 04/12/20 10:26 Earlier today patient's case was discussed with the [facility] dialysis center where patient has dialysis Wednesday and Wednesday. Our goal was to stabilize patient so that he could get to his dialysis clinic today. Our plan is to do just that and I have also reupdated the [facility] with patient's progress and the plan to send him over there within the next 10 to 15 minutes. - Vital Signs Vital signs: Temp Pulse Resp BP Pulse Ox 99.0 F 87 16 119/61 96 04/12/20 06:43 04/12/20 06:17 04/12/20 06:43 04/12/20 06:43 04/12/20 06:43 04/12/20 08:15 Vital signs show temperature 99.0 otherwise essentially within normal range. 04/12/20 10:26 Vital signs remained stable. - Laboratory Result Diagrams: 04/12/20 08:42 04/12/20 08:42 Laboratory results interpreted by me: 04/12/20 04/12/20 04/12/20 08:35 08:42 08:42 WBC 15.2 H RBC 3.88 L Hgb 12.4 L Hct 36.8 L Lymph % (Auto) 8.7 L Absolute Neuts (auto) 12.9 H Seg Neutrophils % 84.9 H PT 17.3 H APTT 93.3 H Potassium BUN Creatinine Est GFR ( Amer) Est GFR (MDRD) Non-Af Glucose POC Glucose 280 H Direct Bilirubin AST NT-Pro-B Natriuret Pep Acetaminophen 04/12/20 04/12/20 08:42 08:42 WBC RBC Hgb Hct Lymph % (Auto) Absolute Neuts (auto) Seg Neutrophils % PT APTT Potassium 6.4 H* BUN 75 H Creatinine 12.71 H Est GFR ( Amer) 5 L Est GFR (MDRD) Non-Af 4 L Glucose 256 H POC Glucose Direct Bilirubin 0.5 H AST 15 L NT-Pro-B Natriuret Pep 4750 H Acetaminophen < 10 L Patient's laboratory shows a 15,000 white count and a potassium of 6.4 patient has chronic renal failure with a BUN of 75 and creatinine of 12.7. Patient's BNP is 4750 patient's lactic acid was 2.1 no evidence for any acute sepsis or infection at this time. 04/12/20 10:28 Patient's potassium was treated with IV calcium gluconate 1000 mg. IV Humulin R 7 units along with 25 g of D50 half syringe push. Also patient received 1 amp of bicarb. - Diagnostic Test Radiology reviewed: Image reviewed, Reports reviewed Radiology results interpreted by me: 04/12/20 08:14 Chest X-Ray 04/12/20 07:14 IMPRESSION: Clear lungs. Chest x-ray single view portable shows no acute process no evidence of congestive heart failure. - EKG Interpretation by Me Additional EKG results interpreted by me: 04/12/20 08:08 Twelve-lead EKG shows normal sinus rhythm rate of 82 first-degree AV block QRS within normal interval QT interval borderline prolongation. Nonspecific intraventricular conduction delay with left axis deviation. Inferior infarct age indeterminate consider anteroseptal infarct age indeterminate. No evidence for an acute STEMI. Discharge - Discharge Clinical Impression: Hyperkalemia, Chronic home hemodialysis status, Diabetes, Diabetes mellitus type 2 in obese, Obesity (BMI 30-39.9) Condition: Stable Disposition: [facility] Referrals: EDWARD GUTIERREZ MD [ACTIVE STAFF] - Follow up as needed I personally performed the services described in the documentation, reviewed and edited the documentation which was dictated to the scribe in my presence, and it accurately records my words and actions.
[2020-04-12 11:00] VITALS: BP 133/61
== END 2020-04-12 10:59 | disposition home health service (06) ==
LOC: ER 06:07
DX: E87.5 Hyperkalemia (principal); R53.1 Weakness; R50.9 Fever, unspecified; E11.22 Type 2 diabetes mellitus with diabetic chronic kidney disease; I12.0 Hypertensive chronic kidney disease with stage 5 chronic kidney disease or end stage renal disease; N18.6 End stage renal disease; Z99.2 Dependence on renal dialysis
CPT/HCPCS: 93005; 99285; 96374; 96375; 36415; 87040; 82962; 80307 ×2; 82550; 83605; 83735; 85025; 85610; 85730; 80053; 84484; 82803; 83880; 71045; 70450; 72125; 93010; J0610; J3490 ×2; A9270; J1815

== ENCOUNTER 2020-04-12 17:25 | Emergency (ER) | payer MEDICARE ==
--- NOTE | 2020-04-12 17:59 | ER Document Report ---
ED Medical Screen (RME) - General Chief Complaint: General Weakness Stated Complaint: POTASSIUM HIGH Time Seen by Provider: 04/12/20 17:46 Primary Care Provider: HONG LARA MD [Primary Care Provider] - Follow up as needed TRAVEL OUTSIDE OF THE [place] IN LAST 30 DAYS: No - HPI Notes: 04/12/20 17:52 Patient is a 59-year-old male who presented to the hospital earlier this morning with complaint of weakness. Work-up found his potassium to be elevated at 6.2 and he was sent to dialysis. Following dialysis states that he was not much improved and she brought him back to the hospital. She states that his mental status is altered from his baseline that he is less able to communicate and more aggressive. Patient is able to answer questions but with significant difficulty. He denies chest pain, palpitations, shortness of breath. Brief medical screening exam patient has no pronator drift. Cranial nerves II through XII are intact. No leg drift. He can tell me his full name, where he is, who the president is, and the date. However he hesitates and is slow to answer often. Sometimes he is can he just stares off after have asked him a question for several seconds. Occasionally after asked him the question multiple times. I performed a brief medical screening exam on the patient determined that the patient needs further evaluation and management by main side provider. I have placed initial orders to help expedite care. - Related Data Allergies/Adverse Reactions: povidone-iodine [From Betadine] Allergy (Severe, Verified 12/12/18 12:11) Generalized rash Soap [From Betadine] Allergy (Severe, Verified 12/12/18 12:11) Generalized rash PAPER TAPE Allergy (Uncoded 12/12/18 12:11) Skin Redness Past Medical History - Social History Family history: Reviewed & Not Pertinent - Past Medical History Cardiac Medical History: Reports: Hx Hypercholesterolemia, Hx Hypertension - ON MEDS Denies: Hx Coronary Artery Disease, Hx Heart Attack Pulmonary Medical History: Reports: Hx Asthma - Mild intermittent, PRN inhaler use for treatment, Hx COPD, Hx Pneumonia, Hx Sleep Apnea Denies: Hx Bronchitis Neurological Medical History: Denies: Hx Cerebrovascular Accident, Hx Seizures Endocrine Medical History: Reports: Hx Diabetes Mellitus Type 2. Denies: Hx Diabetes Mellitus Type 1, Hx Hyperthyroidism, Hx Hypothyroidism Renal/ Medical History: Reports: Hx End Stage Renal Disease, Hx Hemodialysis, Hx Kidney Stones - kidney disease. Denies: Hx Peritoneal Dialysis GI Medical History: Reports: Hx Gastroesophageal Reflux Disease. Denies: Hx Cirrhosis, Hx Hepatitis Musculoskeltal Medical History: Reports Hx Arthritis - hands, KNEES, Reports Hx Gout Skin Medical History: Reports Hx Eczema Psychiatric Medical History: Reports: Hx Depression Infectious Medical History: Denies: Hx Hepatitis Past Surgical History: Reports: Hx Appendectomy, Hx Kidney (Renal Surgery) - left kidney removed, Hx Tonsillectomy, Hx Vascular Surgery - PermCath placement for dialysis, Other - bilateral cataract extraction with insertion of lens - Immunizations Immunizations up to date: Yes Hx Diphtheria, Pertussis, Tetanus Vaccination: Yes Physical Exam - Vital signs Vitals: Temp Pulse Resp BP Pulse Ox 98.4 F 100 18 130/63 H 100 04/12/20 17:31 04/12/20 17:31 04/12/20 17:31 04/12/20 17:31 04/12/20 17:31 Course - Vital Signs Vital signs: Temp Pulse Resp BP Pulse Ox 98.4 F 100 18 130/63 H 100 04/12/20 17:31 04/12/20 17:31 04/12/20 17:31 04/12/20 17:31 04/12/20 17:31 Doctor's Discharge - Discharge Referrals: HONG LARA MD [Primary Care Provider] - Follow up as needed
--- NOTE | 2020-04-12 19:18 | ER Document Report ---
ED General - General Chief Complaint: General Weakness Stated Complaint: POTASSIUM HIGH Time Seen by Provider: 04/12/20 17:46 Primary Care Provider: HONG LARA MD [Primary Care Provider] - Follow up as needed Notes: 59 year old male arrives here from HD with complaints of increasing weakness since this am. No known fever or chills. Seen here earlier today and that chart is reviewed. He has been on HD for about 2 years and normally functions independently at home. He has not been able to do that today. TRAVEL OUTSIDE OF THE [place] IN LAST 30 DAYS: No - HPI Quality of pain: No pain Severity: Moderate Associated symptoms: None Exacerbated by: Denies Relieved by: Denies - Related Data Allergies/Adverse Reactions: povidone-iodine [From Betadine] Allergy (Severe, Verified 12/12/18 12:11) Generalized rash Soap [From Betadine] Allergy (Severe, Verified 12/12/18 12:11) Generalized rash PAPER TAPE Allergy (Uncoded 12/12/18 12:11) Skin Redness Past Medical History - Social History Smoking Status: Unknown if Ever Smoked Chew tobacco use (# tins/day): No Frequency of alcohol use: None Drug Abuse: None Family History: Reviewed & Not Pertinent, CAD, Other - Renal failure Patient has homicidal ideation: No - Past Medical History Cardiac Medical History: Reports: Hx Hypercholesterolemia, Hx Hypertension - ON MEDS Denies: Hx Coronary Artery Disease, Hx Heart Attack Pulmonary Medical History: Reports: Hx Asthma - Mild intermittent, PRN inhaler use for treatment, Hx COPD, Hx Pneumonia, Hx Sleep Apnea Denies: Hx Bronchitis Neurological Medical History: Denies: Hx Cerebrovascular Accident, Hx Seizures Endocrine Medical History: Reports: Hx Diabetes Mellitus Type 2. Denies: Hx Diabetes Mellitus Type 1, Hx Hyperthyroidism, Hx Hypothyroidism Renal/ Medical History: Reports: Hx End Stage Renal Disease, Hx Hemodialysis, Hx Kidney Stones - kidney disease. Denies: Hx Peritoneal Dialysis GI Medical History: Reports: Hx Gastroesophageal Reflux Disease. Denies: Hx Cirrhosis, Hx Hepatitis Musculoskeletal Medical History: Reports Hx Arthritis - hands, KNEES, Reports Hx Gout Skin Medical History: Reports Hx Eczema Psychiatric Medical History: Reports: Hx Depression Infectious Medical History: Denies: Hx Hepatitis Past Surgical History: Reports: Hx Appendectomy, Hx Kidney (Renal Surgery) - left kidney removed, Hx Tonsillectomy, Hx Vascular Surgery - PermCath placement for dialysis, Other - bilateral cataract extraction with insertion of lens - Immunizations Immunizations up to date: Yes Hx Diphtheria, Pertussis, Tetanus Vaccination: Yes Hx Pneumococcal Vaccination: 03/14/18 Review of Systems - Review of Systems Constitutional: Weakness. denies: No symptoms reported EENT: No symptoms reported Cardiovascular: No symptoms reported Respiratory: No symptoms reported Gastrointestinal: No symptoms reported Genitourinary: No symptoms reported Male Genitourinary: No symptoms reported Musculoskeletal: No symptoms reported Skin: No symptoms reported Hematologic/Lymphatic: No symptoms reported Neurological/Psychological: No symptoms reported Physical Exam - Vital signs Vitals: Temp Pulse Resp BP Pulse Ox 98.4 F 100 18 130/63 H 100 04/12/20 17:31 04/12/20 17:31 04/12/20 17:31 04/12/20 17:31 04/12/20 17:31 Interpretation: Normal - General General appearance: Appears well, Alert - HEENT Head: Normocephalic, Atraumatic Eyes: Normal Pupils: PERRL - Respiratory Respiratory status: No respiratory distress Chest status: Nontender Breath sounds: Normal Chest palpation: Normal - Cardiovascular Rhythm: Regular Heart sounds: Normal auscultation Murmur: No - Abdominal Inspection: Normal Distension: No distension Bowel sounds: Normal Tenderness: Nontender Organomegaly: No organomegaly - Back Back: Normal, Nontender - Extremities General upper extremity: Normal inspection, Nontender, Normal color, Normal ROM, Normal temperature General lower extremity: Normal inspection, Nontender, Normal color, Normal ROM, Normal temperature, Normal weight bearing. No: Katelyn's sign - Neurological Neuro grossly intact: Yes Cognition: Normal Orientation: AAOx4 Iggy Coma Scale Eye Opening: Spontaneous [place] Coma Scale Verbal: Oriented [place] Coma Scale Motor: Obeys Commands [place] Coma Scale Total: 15 Speech: Normal Motor strength normal: LUE, RUE, LLE, RLE Sensory: Normal - Psychological Associated symptoms: Normal affect, Normal mood - Skin Skin Temperature: Warm Skin Moisture: Dry Skin Color: Normal Course - Re-evaluation Re-evalutation: 04/12/20 23:40 MDM 59 year old male is here with genralized weakness and an increasing K. His K was 6.4 today this am and is now 6.5. I have discussed the pt with [facility] and am awaiting a call back. 04/13/20 01:31 I have discussed the pt with Dr. Kitchen at [facility] and he has graciously accepted the pt but would like another BMP and another K cocktail ( NaHco3, D50, Insulin, Calcium). Pt over to Dr. Valadez at 0200. - Vital Signs Vital signs: Temp Pulse Resp BP Pulse Ox 98.4 F 100 13 148/75 H 98 04/12/20 17:31 04/12/20 17:31 04/13/20 00:00 04/12/20 23:31 04/13/20 00:00 - Laboratory Result Diagrams: 04/12/20 19:45 04/12/20 19:45 Laboratory results interpreted by me: 04/12/20 04/12/20 04/12/20 19:45 19:45 19:45 WBC 15.4 H RBC 4.17 L Hgb 13.4 L RDW 14.2 H Lymph % (Auto) 8.1 L Absolute Neuts (auto) 12.9 H Seg Neutrophils % 84.0 H PT APTT Potassium 6.5 H* Chloride 97 L BUN 46 H D Creatinine 9.02 H Est GFR ( Amer) 7 L Est GFR (MDRD) Non-Af 6 L Glucose 202 H Lactic Acid 2.5 H Total Bilirubin 1.4 H Direct Bilirubin 0.5 H Total Protein 9.0 H Albumin 5.1 H 04/12/20 22:46 WBC RBC Hgb RDW Lymph % (Auto) Absolute Neuts (auto) Seg Neutrophils % PT 16.3 H APTT 81.3 H Potassium Chloride BUN Creatinine Est GFR ( Amer) Est GFR (MDRD) Non-Af Glucose Lactic Acid Total Bilirubin Direct Bilirubin Total Protein Albumin - Diagnostic Test Radiology reviewed: Image reviewed, Reports reviewed - EKG Interpretation by Me EKG shows normal: Sinus rhythm Rate: Tachycardia - Sinus Tachy [address] elevation or depression Ant Q waves. No st elevaiton or depression my interpretation. Critical Care Note - Critical Care Note Total time excluding time spent on procedures (mins): 30 Discharge - Discharge Clinical Impression: Morbid obesity, Hyperkalemia Diabetes Qualifiers: Diabetes mellitus type: type 2 Diabetes mellitus nursing home insulin use: without buttermilk drier operator use Diabetes mellitus complication status: with other specified complication Qualified Code(s): E11.69 - Type 2 diabetes mellitus with other specified complication Condition: Serious Disposition: [facility] Referrals: HONG LARA MD [Primary Care Provider] - Follow up as needed
--- NOTE | 2020-04-12 19:40 | RADIOLOGY REPORT (SQ) ---
EXAM DESCRIPTION: CT HEAD WITHOUT IMAGES COMPLETED DATE/TIME: 04/12/2020 7:27 pm REASON FOR STUDY: ams COMPARISON: 04/12/2020 TECHNIQUE: Axial images acquired through the brain without intravenous contrast. Images reviewed wi th bone, brain and subdural windows. Additional sagittal and coronal reconstructions were generated. Images stored on PACS. All CT scanners at this facility use dose modulation, iterative reconstruction, and/or weight based d osing when appropriate to reduce radiation dose to as low as reasonably achievable (ALARA). [facility]: Dose Right [facility]: CareDose [facility]: Dose Right [facility]: Teradose 4D [facility]: [employer] RADIATION DOSE: CT Rad equipment meets quality standard of care and radiation dose reduction techniq ues were employed. CTDIvol: 53.2 mGy. DLP: 1044 mGy-cm. mGy. LIMITATIONS: None. FINDINGS: VENTRICLES: Normal size and contour. CEREBRUM: No masses. No hemorrhage. No midline shift. No evidence for acute infarction. Few scatte red areas of low density in the white matter most likely chronic small vessel ischemic changes. CEREBELLUM: No masses. No hemorrhage. No alteration of density. No evidence for acute infarction. EXTRAAXIAL SPACES: No fluid collections. No masses. ORBITS AND GLOBE: No intra- or extraconal masses. Normal contour of globe without masses. CALVARIUM: No fracture. PARANASAL SINUSES: No fluid or mucosal thickening. SOFT TISSUES: No mass or hematoma. OTHER: No other significant finding. IMPRESSION: MILD CHRONIC MICROVASCULAR ISCHEMIA. NO ACUTE IMAGING FINDINGS IN THE BRAIN. EVIDENCE OF ACUTE STROKE: NO. COMMENT: Quality ID # [id number]: Final reports with documentation of one or more dose reduction techniques (e.g., Automated exposure control, adjustment of the mA and/or kV according to patient size, use of iterative reconstruction technique) TECHNICAL DOCUMENTATION: JOB ID: [id number] 2010 [employer]- All Rights Reserved Reading location - IP/workstation name: [email or web address]
[2020-04-12 20:05] LABS: ABSOLUTE BASOPHILS # (AUTO) 0.1 10^3/uL (0.0-0.2); ABSOLUTE LYMPHOCYTES (AUTO) 1.3 10^3/uL (0.5-4.7); ABSOLUTE MONOCYTES (AUTO) 1.1 10^3/uL (0.1-1.4); ABSOLUTE NEUT (AUTO) 12.9 10^3/uL (1.7-8.2); BASOPHILS % (AUTO) 0.6 % (0-2); HEMATOCRIT 40.1 % (37.9-51.0); HEMOGLOBIN 13.4 g/dL (13.5-17.0); LYMPHOCYTES % (AUTO) 8.1 % (13-45); MEAN CORPUSCULAR HEMOGLOBIN 32.1 pg (27.0-33.4); MEAN CORPUSCULAR HGB CONC 33.3 g/dL (32.0-36.0); MEAN CORPUSCULAR VOLUME 96 fl (80-97); MONOCYTES % (AUTO) 7.3 % (3-13); PLATELET COUNT 214 10^3/uL (150-450); RED BLOOD COUNT 4.17 10^6/uL (4.35-5.55); RED CELL DISTRIBUTION WIDTH 14.2 % (11.5-14.0); TOTAL CELLS COUNTED % (AUTO) 100 %; WHITE BLOOD COUNT 15.4 10^3/uL (4.0-10.5)
[2020-04-12 20:25] LABS: ALBUMIN 5.1 g/dL (3.5-5.0); ALKALINE PHOSPHATASE 107 U/L (38-126); ANION GAP 18 (5-19); ASPARTATE AMINO TRANSFERASE 23 U/L (17-59); BILIRUBIN,DIRECT 0.5 mg/dL (0.0-0.4); BILIRUBIN,TOTAL 1.4 mg/dL (0.2-1.3); CALCIUM 9.6 mg/dL (8.4-10.2); CARBON DIOXIDE 24 mmol/L (22-30); CHLORIDE 97 mmol/L (98-107); GLUCOSE 202 mg/dL (75-110)
[2020-04-12 20:40] LABS: BLOOD UREA NITROGEN 46 mg/dL (7-20); POTASSIUM 6.5 mmol/L (3.6-5.0)
[2020-04-12] MEDS ORDERED: SODIUM BICARBONATE 8.4% INJ 50 MEQ/50 ML DISP.SYRIN IV ONE (20:50)
[2020-04-12] MEDS ORDERED: CALCIUM GLUCONATE 1000 MG/10 ML INJ IV ONE (20:51)
[2020-04-12] MEDS ORDERED: INSULIN REG, HUMAN 100 UNIT/ML 3 ML VIAL (PYX) IV ONE (20:51)
[2020-04-12] MEDS ORDERED: DEXTROSE 50%-WATER 25 GM/50 ML DISP.SYRIN IV ONE (20:51)
[2020-04-12] MEDS ORDERED: SODIUM POLYSTYRENE SULFONATE 15 GM/60 ML PO ONE (20:55)
--- NOTE | 2020-04-12 22:12 | RADIOLOGY REPORT (SQ) ---
EXAM DESCRIPTION: MRI of the brain without gadolinium. CLINICAL HISTORY: 59 years Male; Weakness confusion and altered mental status. TECHNIQUE: Routine noncontrast MRI brain protocol COMPARISON: Unenhanced CT scan of the brain obtained earlier in the day FINDINGS: Diffusion: No diffusion restriction. Brain: Ventricles and basilar cisterns are patent. There is mild scattered increased signal seen in the periventricular white matter. This is most pronounced adjacent to the posterior horn of the left lateral ventricle. Findings are nonspecific and suggestive of small vessel ischemic disease. No mass lesions. No midline shift or abnormal extra-axial fluid collections. IAC and CP angle regions are normal. Skull: Calvarial marrow is normal. Orbits and paranasal sinuses: Paranasal sinuses and mastoid air cells are clear. Visualized portions of the orbits are normal. Vessels: Normal flow-voids are seen in the major intracranial arteries. IMPRESSION: 1. No acute ischemia or infarction. 2. Mild scattered white matter changes consistent with small vessel ischemic disease.
--- NOTE | 2020-04-12 22:16 | RADIOLOGY REPORT (SQ) ---
EXAM DESCRIPTION: XR CHEST 1 VIEW COMPLETED DATE/TME: 04/12/2020 20:57 CLINICAL HISTORY: 59 years, Male, htn COMPARISON: December 31, 2018 NUMBER OF VIEWS: 1 TECHNIQUE: Portable AP upright view of the chest was obtained on 2 images at 9:45 PM. LIMITATIONS: Relatively over exposed lungs FINDINGS: The heart size is within normal limits. There is minimal linear scarring again noted within the left midlung zone. There is no airspace consolidation. There is no evidence of pleural effusion or pneumothorax. No definite acute bony abnormality is seen. IMPRESSION: No acute abnormality as above. copyright 2010 [employer]- All Rights Reserved
[2020-04-12] MEDS ORDERED: VANCOMYCIN HCL INJ 1000 MG VIAL IV ONE (22:26)
--- NOTE | 2020-04-12 22:28 | EKG REPORT ---
SEVERITY:- ABNORMAL ECG - SINUS TACHYCARDIA LAD, CONSIDER LAFB OR INFERIOR INFARCT ANTERIOR INFARCT, AGE INDETERMINATE : Confirmed by: Cj Busch MD 12-Apr-2020 22:28:06
[2020-04-12 23:23] LABS: INTERNATIONAL RATION (INR) 1.29; PROTHROMBIN TIME 16.3 SEC (11.4-15.4)
[2020-04-12 23:25] LABS: PARTIAL THROMBOPLASTIN TIME 81.3 SEC (23.5-35.8)
[2020-04-13] MEDS ORDERED: SODIUM BICARBONATE 8.4% INJ 50 MEQ/50 ML DISP.SYRIN IV ONE (01:22)
[2020-04-13] MEDS ORDERED: DEXTROSE 50%-WATER 25 GM/50 ML DISP.SYRIN IV ONE (01:22)
[2020-04-13] MEDS ORDERED: CALCIUM GLUCONATE 1000 MG/10 ML INJ IV ONE (01:22)
[2020-04-13] MEDS ORDERED: INSULIN REG, HUMAN 100 UNIT/ML 3 ML VIAL (PYX) IV ONE (01:23)
[2020-04-13 02:09] LABS: ANION GAP 18 (5-19); BLOOD UREA NITROGEN 47 mg/dL (7-20); CALCIUM 9.2 mg/dL (8.4-10.2); CARBON DIOXIDE 28 mmol/L (22-30); CHLORIDE 96 mmol/L (98-107); GLUCOSE 203 mg/dL (75-110)
[2020-04-13 02:12] LABS: POTASSIUM 4.7 mmol/L (3.6-5.0)
[2020-04-13 10:21] VITALS: BP 126/73
== END 2020-04-13 10:21 | disposition home or self-care (01) ==
LOC: ER 17:25
DX: E66.01 Morbid (severe) obesity due to excess calories (principal); E87.5 Hyperkalemia; R53.1 Weakness; E78.00 Pure hypercholesterolemia, unspecified; E11.22 Type 2 diabetes mellitus with diabetic chronic kidney disease; I12.0 Hypertensive chronic kidney disease with stage 5 chronic kidney disease or end stage renal disease; N18.6 End stage renal disease; Z99.2 Dependence on renal dialysis; Z79.4 Long term (current) use of insulin
CPT/HCPCS: 93005; 99285; 96374; 96375; 96365; 36415; 87040; 82962; 80307 ×2; 82550; 83605; 83735; 84443; 85025; 85610; 85730; 87070; 80048; 80053; 84484; 82803; 83880; 70551; 71045; 70450 ×2; 72125; 93010; J0610; J3490 ×2; A9270 ×2; J3370; J1815

== ENCOUNTER 2020-04-17 12:07 | Emergency (ER) | payer MEDICARE ==
[2020-04-17] MEDS ORDERED: FENTANYL CITRATE INJ/PF 100 MCG/2 ML AMPUL IV ONE (12:53)
--- NOTE | 2020-04-17 12:55 | ER Document Report ---
ED Medical Screen (RME) - General Chief Complaint: Rectal Pain Stated Complaint: RECTAL PAIN Time Seen by Provider: 04/17/20 12:49 Primary Care Provider: HONG LARA MD [Primary Care Provider] - Follow up as needed Notes: Patient presents complaining of draining abscess to right buttock for the past week. Patient reports nausea vomiting yesterday with fever and chills. Patient reports temperature of 101 yesterday. Patient states area has been draining. Patient has a history of hypertension, diabetes and end-stage renal disease. Patient dialyzes on Wednesday and did go today. I have greeted and performed a rapid initial assessment of this patient. A comprehensive ED assessment and evaluation of the patient, analysis of test results and completion of the medical decision making process will be conducted by additional ED providers. TRAVEL OUTSIDE OF THE [place] IN LAST 30 DAYS: No - Related Data Allergies/Adverse Reactions: povidone-iodine [From Betadine] Allergy (Severe, Verified 04/17/20 12:45) Generalized rash Soap [From Betadine] Allergy (Severe, Verified 04/17/20 12:45) Generalized rash PAPER TAPE Allergy (Uncoded 04/17/20 12:45) Skin Redness Past Medical History - Social History Chew tobacco use (# tins/day): No Frequency of alcohol use: None Drug Abuse: None Family history: Reviewed & Not Pertinent - Past Medical History Cardiac Medical History: Reports: Hx Hypercholesterolemia, Hx Hypertension - ON MEDS Denies: Hx Coronary Artery Disease, Hx Heart Attack Pulmonary Medical History: Reports: Hx Asthma - Mild intermittent, PRN inhaler use for treatment, Hx COPD, Hx Pneumonia, Hx Sleep Apnea Denies: Hx Bronchitis Neurological Medical History: Denies: Hx Cerebrovascular Accident, Hx Seizures Endocrine Medical History: Reports: Hx Diabetes Mellitus Type 2. Denies: Hx Diabetes Mellitus Type 1, Hx Hyperthyroidism, Hx Hypothyroidism Renal/ Medical History: Reports: Hx End Stage Renal Disease, Hx Hemodialysis, Hx Kidney Stones - kidney disease. Denies: Hx Peritoneal Dialysis GI Medical History: Reports: Hx Gastroesophageal Reflux Disease. Denies: Hx Cirrhosis, Hx Hepatitis Musculoskeltal Medical History: Reports Hx Arthritis - hands, KNEES, Reports Hx Gout Skin Medical History: Reports Hx Eczema Psychiatric Medical History: Reports: Hx Depression Infectious Medical History: Denies: Hx Hepatitis Past Surgical History: Reports: Hx Appendectomy, Hx Kidney (Renal Surgery) - left kidney removed, Hx Tonsillectomy, Hx Vascular Surgery - PermCath placement for dialysis, Other - bilateral cataract extraction with insertion of lens - Immunizations Immunizations up to date: Yes Hx Diphtheria, Pertussis, Tetanus Vaccination: Yes Physical Exam - Vital signs Vitals: Temp Pulse Resp BP Pulse Ox 99.8 F 92 20 129/62 H 98 04/17/20 12:26 04/17/20 12:26 04/17/20 12:26 04/17/20 12:26 04/17/20 12:26 - General General appearance: Alert In distress: Mild Notes: Patient holding self in a guarded position, appears uncomfortable, unable to examine area as patient is in triage in a wheelchair Course - Vital Signs Vital signs: Temp Pulse Resp BP Pulse Ox 99.8 F 92 20 129/62 H 98 04/17/20 12:26 04/17/20 12:26 04/17/20 12:26 04/17/20 12:26 04/17/20 12:26 Doctor's Discharge - Discharge Referrals: HONG LARA MD [Primary Care Provider] - Follow up as needed
[2020-04-17 13:21] LABS: ABSOLUTE BASOPHILS # (AUTO) 0.1 10^3/uL (0.0-0.2); ABSOLUTE LYMPHOCYTES (AUTO) 0.8 10^3/uL (0.5-4.7); ABSOLUTE MONOCYTES (AUTO) 0.8 10^3/uL (0.1-1.4); ABSOLUTE NEUT (AUTO) 10.7 10^3/uL (1.7-8.2); BASOPHILS % (AUTO) 0.4 % (0-2); EOSINOPHILS % (AUTO) 0.1 % (0-6); HEMATOCRIT 32.6 % (37.9-51.0); HEMOGLOBIN 11.2 g/dL (13.5-17.0); LYMPHOCYTES % (AUTO) 6.4 % (13-45); MEAN CORPUSCULAR HEMOGLOBIN 32.5 pg (27.0-33.4); MEAN CORPUSCULAR HGB CONC 34.3 g/dL (32.0-36.0); MEAN CORPUSCULAR VOLUME 95 fl (80-97); MONOCYTES % (AUTO) 6.3 % (3-13); PLATELET COUNT 219 10^3/uL (150-450); RED BLOOD COUNT 3.45 10^6/uL (4.35-5.55); RED CELL DISTRIBUTION WIDTH 13.6 % (11.5-14.0); SEGMENTED NEUTROPHILS % (AUTO) 86.8 % (42-78); TOTAL CELLS COUNTED % (AUTO) 100 %; WHITE BLOOD COUNT 12.3 10^3/uL (4.0-10.5)
[2020-04-17 13:46] LABS: ALBUMIN 4.1 g/dL (3.5-5.0); ALKALINE PHOSPHATASE 130 U/L (38-126); ANION GAP 14 (5-19); ASPARTATE AMINO TRANSFERASE 123 U/L (17-59); BILIRUBIN,DIRECT 0.7 mg/dL (0.0-0.4); BILIRUBIN,TOTAL 1.1 mg/dL (0.2-1.3); BLOOD UREA NITROGEN 33 mg/dL (7-20); CARBON DIOXIDE 29 mmol/L (22-30); CHLORIDE 97 mmol/L (98-107); GLUCOSE 234 mg/dL (75-110); POTASSIUM 4.1 mmol/L (3.6-5.0); TOTAL PROTEIN 7.1 g/dL (6.3-8.2)
[2020-04-17] MEDS ORDERED: LIDOCAINE 1% INJ-PF (10 MG/ML) 30 ML SDV INJ ONE (18:23)
--- NOTE | 2020-04-17 18:23 | ER Document Report ---
ED General - General Chief Complaint: Rectal Pain Stated Complaint: RECTAL PAIN Time Seen by Provider: 04/17/20 12:49 Primary Care Provider: HONG LARA MD [Primary Care Provider] - Follow up as needed Mode of Arrival: Ambulatory Information source: Patient Notes: Patient with c/o pain and drainage from his buttock area. Patients states they first noticed it yesterday. Started draining today. Denies any fevers/chills. Attended dialysis today. No hx of abscess in this location. Hx of MRSA. TRAVEL OUTSIDE OF THE [place] IN LAST 30 DAYS: No - Related Data Allergies/Adverse Reactions: povidone-iodine [From Betadine] Allergy (Severe, Verified 04/17/20 12:45) Generalized rash Soap [From Betadine] Allergy (Severe, Verified 04/17/20 12:45) Generalized rash PAPER TAPE Allergy (Uncoded 04/17/20 12:45) Skin Redness Past Medical History - General Information source: Patient - Social History Smoking Status: Never Smoker Chew tobacco use (# tins/day): No Frequency of alcohol use: None Drug Abuse: None Family History: Reviewed & Not Pertinent, CAD, Other - Renal failure Patient has homicidal ideation: No - Past Medical History Cardiac Medical History: Reports: Hx Hypercholesterolemia, Hx Hypertension - ON MEDS Denies: Hx Coronary Artery Disease, Hx Heart Attack Pulmonary Medical History: Reports: Hx Asthma - Mild intermittent, PRN inhaler use for treatment, Hx COPD, Hx Pneumonia, Hx Sleep Apnea Denies: Hx Bronchitis Neurological Medical History: Denies: Hx Cerebrovascular Accident, Hx Seizures Endocrine Medical History: Reports: Hx Diabetes Mellitus Type 2. Denies: Hx Diabetes Mellitus Type 1, Hx Hyperthyroidism, Hx Hypothyroidism Renal/ Medical History: Reports: Hx End Stage Renal Disease, Hx Hemodialysis, Hx Kidney Stones - kidney disease. Denies: Hx Peritoneal Dialysis GI Medical History: Reports: Hx Gastroesophageal Reflux Disease. Denies: Hx Cirrhosis, Hx Hepatitis Musculoskeletal Medical History: Reports Hx Arthritis - hands, KNEES, Reports Hx Gout Skin Medical History: Reports Hx Eczema Psychiatric Medical History: Reports: Hx Depression Infectious Medical History: Denies: Hx Hepatitis Past Surgical History: Reports: Hx Appendectomy, Hx Kidney (Renal Surgery) - bilat kidney removed, Hx Tonsillectomy, Hx Vascular Surgery - PermCath placement for dialysis, Other - bilateral cataract extraction with insertion of lens - Immunizations Immunizations up to date: Yes Hx Diphtheria, Pertussis, Tetanus Vaccination: Yes Hx Pneumococcal Vaccination: 03/14/18 Review of Systems - Review of Systems Constitutional: denies: Fever Skin: See HPI -: Yes All other systems reviewed and negative Physical Exam - Vital signs Vitals: Temp Pulse Resp BP Pulse Ox 99.8 F 92 20 129/62 H 98 04/17/20 12:26 04/17/20 12:26 04/17/20 12:26 04/17/20 12:26 04/17/20 12:26 Interpretation: Normal - General General appearance: Appears well, Alert - HEENT Head: Normocephalic, Atraumatic Eyes: Normal Pupils: PERRL - Respiratory Respiratory status: No respiratory distress Chest status: Nontender Breath sounds: Normal Chest palpation: Normal - Cardiovascular Rhythm: Regular Heart sounds: Normal auscultation Murmur: No - Abdominal Inspection: Normal Distension: No distension Bowel sounds: Normal Tenderness: Nontender Organomegaly: No organomegaly - Rectal Tenderness: Yes Notes: abcess located to L gluteal area approx 4cm from rectum. No abnormality palpated with rectal exam. - Back Back: Normal, Nontender - Extremities General upper extremity: Normal inspection, Nontender, Normal color, Normal ROM, Normal temperature General lower extremity: Normal inspection, Nontender, Normal color, Normal ROM, Normal temperature, Normal weight bearing. No: Katelyn's sign - Neurological Neuro grossly intact: Yes Cognition: Normal Orientation: AAOx4 Iggy Coma Scale Eye Opening: Spontaneous [place]ggy Coma Scale Verbal: Oriented [place] Coma Scale Motor: Obeys Commands Iggy Coma Scale Total: 15 Speech: Normal Motor strength normal: LUE, RUE, LLE, RLE Sensory: Normal - Psychological Associated symptoms: Normal affect, Normal mood - Skin Skin Temperature: Warm Skin Moisture: Dry Skin Color: Normal Course - Re-evaluation Re-evalutation: Mildly elevated WBC. Creatinine in normal range for patient. Abcess draining, I/D performed to open up further. Abcess is 4cm from rectum. Pt tolerated well, feels improved. Strict follow up and return precautions given to patient and . Thankful for care received. Procedure and rectal exam chaperoned by [employer]LYST Student Vale Villeda. - Vital Signs Vital signs: Temp Pulse Resp BP Pulse Ox 99.6 F 16 L 18 128/60 H 98 04/17/20 20:00 04/17/20 20:00 04/17/20 20:00 04/17/20 20:00 04/17/20 20:00 - Laboratory Result Diagrams: 04/17/20 13:07 04/17/20 13:07 Laboratory results interpreted by me: 04/17/20 04/17/20 13:07 13:07 WBC 12.3 H RBC 3.45 L Hgb 11.2 L Hct 32.6 L Lymph % (Auto) 6.4 L Absolute Neuts (auto) 10.7 H Seg Neutrophils % 86.8 H Chloride 97 L BUN 33 H Creatinine 7.23 H Est GFR ( Amer) 9 L Est GFR (MDRD) Non-Af 8 L Glucose 234 H Direct Bilirubin 0.7 H AST 123 H ALT 99 H Alkaline Phosphatase 130 H Procedures - Incision and Drainage buttock abscess Type: Simple Anesthetic type: 1% Lidocaine Blade size: 11 I&D procedure: Shurclens applied, Iodoform packing placed Incision Method: Incision made by scalpel Discharge - Discharge Clinical Impression: Rectal abscess Condition: Stable Disposition: HOME, SELF-CARE Additional Instructions: You were seen for an abscess that required drainage. Please clean this area with soap and water three times daily and apply new bandage. Dress the area after each cleaning. If packing was placed this must be removed in 48 hours. Please return if you develop fever, vomiting, the pain at the site worsens, you notice spreading redness from the area, or you have any other symptoms that are concerning to you. Please continue taking the Augmentin antibiotic that your primary care provider started. Start taking the Cipro that we have prescribed, your first dose was given here in the emergency department. For the next 7 days please take both antibiotics exactly as prescribed. See Dr. Lara on Wednesday for packing removal, if you are unable to get into see him please return to the emergency department. Prescriptions: Ciprofloxacin HCl [Cipro 500 mg Tablet] 500 mg PO BID #14 tablet Referrals: HONG LARA MD [Primary Care Provider] - Follow up as needed
[2020-04-17] MEDS ORDERED: CIPROFLOXACIN HCL 500 MG TABLET PO ONE (19:25)
[2020-04-17 20:02] VITALS: BP 128/60
== END 2020-04-17 20:00 | disposition home or self-care (01) ==
LOC: ER 12:07
DX: K61.1 Rectal abscess (principal); L02.31 Cutaneous abscess of buttock; J45.20 Mild intermittent asthma, uncomplicated; I12.0 Hypertensive chronic kidney disease with stage 5 chronic kidney disease or end stage renal disease; E11.22 Type 2 diabetes mellitus with diabetic chronic kidney disease; N18.6 End stage renal disease; Z99.2 Dependence on renal dialysis; Z91.048 Other nonmedicinal substance allergy status; Z88.3 Allergy status to other anti-infective agents
CPT/HCPCS: 99284; 36415; 87040; 87070; 87205; 85025; 87075; 87077; 80053; 10060; A9270; J3490; 87186

== ENCOUNTER 2020-04-20 08:29 | Emergency (ER) | payer MEDICARE ==
[2020-04-20 08:34] VITALS: BP 126/61
--- NOTE | 2020-04-20 08:52 | ER Document Report ---
ED General - General Chief Complaint: Wound Recheck Stated Complaint: WOUND RECHECK Time Seen by Provider: 04/20/20 08:52 Primary Care Provider: HONG LARA MD [Primary Care Provider] - 04/22/20 TRAVEL OUTSIDE OF THE [place] IN LAST 30 DAYS: No - HPI Notes: 59-year-old male presents to the emergency room today for evaluation after he had a rectal abscess that was drained on April 17, 2020, he was placed on Cipro. states that she has been washing the area several times a day. She thinks that the packing did come out. Patient has been having normal bowel movements, voiding without any issues. Denies any fevers or chills. Patient came in today for packing change. Denies any chest pain shortness of breath, nausea, vomiting, diarrhea. Patient has been taking ciprofloxacin without any issues. - Related Data Allergies/Adverse Reactions: povidone-iodine [From Betadine] Allergy (Severe, Verified 04/20/20 08:43) Generalized rash Soap [From Betadine] Allergy (Severe, Verified 04/20/20 08:43) Generalized rash PAPER TAPE Allergy (Uncoded 04/20/20 08:43) Skin Redness Home Medications: fenobibrate. gabapentin. hydroxyzine. metoprolol. minoxidil. novolog. vitamin d. atorvastatin. basaglar. calcium. diltiazem. doxazosin. eliquis. amox. cipro. antidiarrheal Past Medical History - General Information source: Patient - Social History Smoking Status: Unknown if Ever Smoked Chew tobacco use (# tins/day): No Frequency of alcohol use: None Drug Abuse: None Family History: Reviewed & Not Pertinent, CAD, Other - Renal failure Patient has homicidal ideation: No - Past Medical History Cardiac Medical History: Reports: Hx Hypercholesterolemia, Hx Hypertension - ON MEDS Denies: Hx Coronary Artery Disease, Hx Heart Attack Pulmonary Medical History: Reports: Hx Asthma - Mild intermittent, PRN inhaler use for treatment, Hx COPD, Hx Pneumonia, Hx Sleep Apnea Denies: Hx Bronchitis Neurological Medical History: Denies: Hx Cerebrovascular Accident, Hx Seizures Endocrine Medical History: Reports: Hx Diabetes Mellitus Type 2. Denies: Hx Diabetes Mellitus Type 1, Hx Hyperthyroidism, Hx Hypothyroidism Renal/ Medical History: Reports: Hx End Stage Renal Disease, Hx Hemodialysis, Hx Kidney Stones - kidney disease. Denies: Hx Peritoneal Dialysis GI Medical History: Reports: Hx Gastroesophageal Reflux Disease. Denies: Hx Cirrhosis, Hx Hepatitis Musculoskeletal Medical History: Reports Hx Arthritis - hands, KNEES, Reports Hx Gout Skin Medical History: Reports Hx Eczema Psychiatric Medical History: Reports: Hx Depression Infectious Medical History: Denies: Hx Hepatitis Past Surgical History: Reports: Hx Appendectomy, Hx Kidney (Renal Surgery) - bilat kidney removed, Hx Tonsillectomy, Hx Vascular Surgery - PermCath placement for dialysis, Other - bilateral cataract extraction with insertion of lens - Immunizations Immunizations up to date: Yes Hx Diphtheria, Pertussis, Tetanus Vaccination: Yes Hx Pneumococcal Vaccination: 03/14/18 Review of Systems - Review of Systems Constitutional: No symptoms reported EENT: No symptoms reported Cardiovascular: No symptoms reported Respiratory: No symptoms reported Gastrointestinal: No symptoms reported Genitourinary: No symptoms reported Male Genitourinary: No symptoms reported Musculoskeletal: No symptoms reported Skin: See HPI Hematologic/Lymphatic: No symptoms reported Neurological/Psychological: No symptoms reported Physical Exam - Vital signs Vitals: Temp Pulse Resp BP Pulse Ox 98.5 F 73 16 126/61 H 94 04/20/20 08:33 04/20/20 08:33 04/20/20 08:33 04/20/20 08:33 04/20/20 08:33 - Notes Notes: MEDICATIONS: I agree with the patient medications as charted by the RN. ALLERGIES: I agree with the allergies as charted by the RN. PAST MEDICAL HISTORY/PAST SURGICAL HISTORY: Reviewed and agree as charted by RN. SOCIAL HISTORY: Reviewed and agree as charted by RN. FAMILY HISTORY: No significant familial comorbid conditions directly related to patient complaint EXAM: Reviewed vital signs as charted by RN. PHYSICAL EXAMINATION:reviewed vital signs by RN GENERAL: Well-appearing, well-nourished and in no acute distress. HEAD: Atraumatic, normocephalic. EYES: Pupils equal round and reactive to light, extraocular movements intact, sclera anicteric, conjunctiva are normal. ENT: Nares patent, oropharynx clear without exudates. Moist mucous membranes. NECK: Normal range of motion, supple without lymphadenopathy LUNGS: Breath sounds clear to auscultation bilaterally and equal. No wheezes rales or rhonchi. HEART: Regular rate and rhythm without murmurs ABDOMEN: Soft, nontender, nondistended abdomen. No guarding, no rebound. No masses appreciated. Musculoskeletal: Normal range of motion, no pitting or edema. No cyanosis. NEUROLOGICAL: Cranial nerves grossly intact. Normal speech, normal gait. Normal sensory, motor exams PSYCH: Normal mood, normal affect. SKIN: Warm, Dry, normal turgor, no rashes or lesions noted. Left buttocks with approximately 0.5 cm x 0.5 cm open wound, no packing noted, no surrounding erythema induration warmth to touch Course - Re-evaluation Re-evalutation: 04/20/20 16:38 Afebrile vital stable no distress. Nurses notes reviewed. Discussed with patient that he does need to return in 48 hours for wound packing change or had his primary care office. Advised to continue taking ciprofloxacin. He can alternate between Tylenol and ibuprofen for pain control. Discussed that he does need to wash the area extensively after having a bowel movement to try and keep clean. Patient and both verbalized understanding of this plan of care and agree with plan of care. After performing a Medical Screening Examination, I estimate there is LOW risk for OPEN FRACTURE, COMPARTMENT SYNDROME, TENDON RUPTURE, ACUTE NEUROVASCULAR INJURY, or RETAINED FOREIGN BODY, thus I consider the discharge disposition reasonable. Also, there is no evidence or peritonitis, sepsis, or toxicity. I have reevaluated this patient multiple times and no significant life threatening changes are noted. The patient and I have discussed the diagnosis and risks, and we agree with discharging home with close follow-up with the understanding that symptoms and presentations can change. We also discussed returning to the Emergency Department immediately if new or worsening symptoms occur. We have discussed the symptoms which are most concerning (e.g., changing or worsening pain, fever, numbness, weakness, cool or painful digits) that necessitate immediate return. - Vital Signs Vital signs: Temp Pulse Resp BP Pulse Ox 98.5 F 73 16 126/61 H 94 04/20/20 08:43 04/20/20 08:33 04/20/20 08:33 04/20/20 08:33 04/20/20 08:33 Discharge - Discharge Clinical Impression: Rectal abscess Condition: Stable Disposition: HOME, SELF-CARE Instructions: Abscess ([facility]), MRSA Cellulitis ([facility]) Additional Instructions: Your rectal abscess today was repacked with iodoform packing. It is advised that you follow-up with your primary care provider in 48 hours for wound recheck and possible repacking of your wound or return to the ER. Please continue taking antibiotics as directed with food. Advised to take probiotic 2 hours before or after taking antibiotics to prevent loose diarrhea. Avoid submerging herself in water until your wound has completely healed. Alternate between Tylenol and ibuprofen for pain control. Return immediately for any new or worsening symptoms. Follow up with primary care provider, call tomorrow to make followup appointment. Referrals: HONG LARA MD [Primary Care Provider] - 04/22/20
== END 2020-04-20 10:31 | disposition home or self-care (01) ==
LOC: ER 08:29
DX: K61.1 Rectal abscess (principal); J44.9 Chronic obstructive pulmonary disease, unspecified; E78.00 Pure hypercholesterolemia, unspecified; E11.22 Type 2 diabetes mellitus with diabetic chronic kidney disease; I12.0 Hypertensive chronic kidney disease with stage 5 chronic kidney disease or end stage renal disease; N18.6 End stage renal disease; Z99.2 Dependence on renal dialysis; Z79.899 Other long term (current) drug therapy; Z79.4 Long term (current) use of insulin; Z79.01 Long term (current) use of anticoagulants; Z79.2 Long term (current) use of antibiotics; Z88.3 Allergy status to other anti-infective agents; Z91.048 Other nonmedicinal substance allergy status
CPT/HCPCS: 99281